=== PATIENT | male | born 1940 | race Caucasian/White ===

== ENCOUNTER 2020-07-07 12:03 | Outpatient (REF) | payer MEDICARE, SELFPAY ==
[2020-07-07 14:27] LABS: Glucose Urine UA NEG (NEG); Leukocyte Esterase Urine 3+ (NEG); Nitrite Urine POS (NEG); Urine Blood 2+ (NEG); Urine Ketones NEG (NEG); Urine Protein TRACE MG/DL (NEG-TRACE)
[2020-07-07 14:34] LABS: Appearance Urine CLOUDY; Color Urine YELLOW
[2020-07-07 15:01] LABS: WBC Urine TNTC /HPF (0-4)
[2020-07-07 15:02] LABS: Bacteria Urine 2+ /LPF; Mucus Urine TRACE /LPF; Squamous Epithelial Cell Urine TRACE /LPF
== END 2020-07-07 12:04 | disposition home or self-care (01) ==
LOC: HO.HSH3E 12:03
PROVIDERS: Visit Provider Internal Medicine Medical Oncology
DX: N39.0 Urinary tract infection, site not specified (principal)
CPT/HCPCS: 81001; 87086; 87088; 87186

== ENCOUNTER 2020-07-08 06:46 | Outpatient (REF) | payer MEDICARE, SELFPAY ==
[2020-07-08 11:20] LABS: MANUAL DIFF FLAG NO
[2020-07-08 11:23] LABS: Basophils Percent Auto 0.3 % (0-2); Eosinophils Absolute Auto 0.3 X10*3/uL (0.0-0.4); Eosinophils Percent Auto 3.7 % (0-4); Hematocrit 28.8 % (42-52); Hemoglobin 9.1 g/dl (14.0-18.0); Imm Gran Abs Auto 0.03 X10*3/uL (0.00-0.03); Imm Gran Pct Auto 0.4 % (0.0-0.4); Lymphocytes Absolute Auto 1.6 X10*3/uL (1.2-4.9); Lymphocytes Percent Auto 22.1 % (20-40); Mean Corpuscular HGB Conc 31.6 g/dl (31.0-36.0); Mean Corpuscular Hemoglobin 31.5 pg (27.0-33.0); Mean Corpuscular Volume 99.7 fL (80-98); Mean Platelet Volume 9.5 fL (9.4-12.4); Monocytes Absolute Auto 0.8 X10*3/uL (0.1-1.2); Monocytes Percent Auto 11.6 % (2-11); Neutrophils Absolute Auto 4.4 X10*3/uL (2.0-8.3); Neutrophils Percent Auto 61.9 % (45-73); Platelet Count 238 X10*3/uL (160-400); Red Blood Count 2.89 X10*6/uL (4.60-5.80); Red Cell Distribution Width 13.7 % (11.0-16.0); White Blood Count 7.1 X10*3/uL (4.8-10.8)
== END 2020-07-08 06:47 | disposition home or self-care (01) ==
LOC: HO.HSH3E 06:46
PROVIDERS: Visit Provider Internal Medicine
DX: R50.9 Fever, unspecified (principal)
CPT/HCPCS: 36415; 85025

== ENCOUNTER 2020-07-09 16:57 | Outpatient (REF) | payer MEDICARE, SELFPAY | END 2020-07-09 16:58 | disposition home or self-care (01) | LOC: HO.HSH3E 16:57 | PROVIDERS: Visit Provider Internal Medicine Medical Oncology | DX: R50.9 Fever, unspecified (principal) | CPT/HCPCS: 87086; 87088; 87186 ==

== ENCOUNTER 2020-08-18 12:59 | Outpatient (REF) | payer MEDICARE, SELFPAY ==
[2020-08-18 13:40] LABS: MANUAL DIFF FLAG NO
[2020-08-18 13:44] LABS: Basophils Percent Auto 0.6 % (0-2); Eosinophils Absolute Auto 0.3 X10*3/uL (0.0-0.4); Eosinophils Percent Auto 3.8 % (0-4); Hematocrit 32.7 % (42-52); Hemoglobin 10.3 g/dl (14.0-18.0); Imm Gran Abs Auto 0.03 X10*3/uL (0.00-0.03); Imm Gran Pct Auto 0.4 % (0.0-0.4); Lymphocytes Absolute Auto 1.1 X10*3/uL (1.2-4.9); Mean Corpuscular HGB Conc 31.5 g/dl (31.0-36.0); Mean Corpuscular Hemoglobin 30.9 pg (27.0-33.0); Mean Corpuscular Volume 98.2 fL (80-98); Mean Platelet Volume 9.2 fL (9.4-12.4); Monocytes Absolute Auto 0.8 X10*3/uL (0.1-1.2); Monocytes Percent Auto 11.1 % (2-11); Neutrophils Absolute Auto 4.6 X10*3/uL (2.0-8.3); Neutrophils Percent Auto 68.1 % (45-73); Platelet Count 278 X10*3/uL (160-400); Red Blood Count 3.33 X10*6/uL (4.60-5.80); Red Cell Distribution Width 14.1 % (11.0-16.0); White Blood Count 6.8 X10*3/uL (4.8-10.8)
[2020-08-18 14:06] LABS: Alanine Aminotransferase 15 U/L (0-40); Albumin Level 3.6 g/dL (3.5-5.0); Alkaline Phosphatase 73 U/L (39-117); Anion Gap 12 (12-20); Aspartate Amino Transferase 17 U/L (5-37); Bilirubin Total 0.3 mg/dL (0.0-1.0); Blood Urea Nitrogen 34 mg/dL (9-16); Calcium 9.1 mg/dL (8.4-10.2); Carbon Dioxide 32 mmol/L (22-29); Chloride 98 mmol/L (96-108); Estimated Glomerular Filt Rate 44; Glucose Random 112 mg/dL (60-115); Potassium 3.6 mmol/l (3.3-5.1); Sodium 138 mmol/L (135-145)
== END 2020-08-18 13:00 | disposition home or self-care (01) ==
LOC: HO.HSH3E 12:59
PROVIDERS: Visit Provider Internal Medicine Medical Oncology
DX: R10.9 Unspecified abdominal pain (principal)
CPT/HCPCS: 36415; 80053; 85025

== ENCOUNTER 2020-09-23 08:24 | Outpatient (REF) | payer MEDICARE, SELFPAY ==
[2020-09-23 12:41] LABS: CDIFF Ag Positive (Negative); CDiff Toxin Negative (Negative)
[2020-09-23 12:42] LABS: CDIFF Internal ctrl Dots and bkg OK (V)
[2020-09-23 14:15] LABS: CDiff Gene PCR POSITIVE (Negative)
== END 2020-09-23 08:25 | disposition home or self-care (01) ==
LOC: HO.HSH3E 08:24
PROVIDERS: Visit Provider Internal Medicine Medical Oncology
DX: R19.7 Diarrhea, unspecified (principal)
CPT/HCPCS: 87324; 87449; 87493

== ENCOUNTER 2020-10-06 09:58 | Outpatient (REF) | payer MEDICARE, SELFPAY | END 2020-10-06 09:59 | disposition home or self-care (01) | LOC: HO.HSH3E 09:58 | PROVIDERS: Visit Provider Internal Medicine Medical Oncology | DX: S41.001A Unspecified open wound of right shoulder, initial encounter (principal) | CPT/HCPCS: 88305; 88312 ==

== ENCOUNTER 2020-11-30 15:20 | Outpatient (REF) | payer MEDICARE, SELFPAY ==
[2020-11-30 15:27] LABS: Glucose Urine UA NEG (NEG); Leukocyte Esterase Urine 3+ (NEG); Nitrite Urine NEG (NEG); Urine Blood 2+ (NEG); Urine Ketones NEG (NEG); Urine Protein 1+ MG/DL (NEG-TRACE)
[2020-11-30 15:32] LABS: Appearance Urine CLOUDY; Color Urine YELLOW
[2020-11-30 15:35] LABS: Bacteria Urine 4+ /LPF; Mucus Urine 1+ /LPF; Squamous Epithelial Cell Urine 1+ /LPF
== END 2020-11-30 15:21 | disposition home or self-care (01) ==
LOC: HO.LNP 15:20
PROVIDERS: Visit Provider Internal Medicine Medical Oncology
DX: R52 Pain, unspecified (principal); L08.9 Local infection of the skin and subcutaneous tissue, unspecified
CPT/HCPCS: 81001; 87071; 87205

== ENCOUNTER 2020-12-12 15:52 | Outpatient (REF) | payer MEDICARE, SELFPAY | END 2020-12-12 15:53 | disposition home or self-care (01) | LOC: HO.LNP 15:52 | PROVIDERS: Visit Provider Internal Medicine Medical Oncology | DX: R52 Pain, unspecified (principal); R60.9 Edema, unspecified | CPT/HCPCS: 87071; 87205 ==

== ENCOUNTER 2020-12-16 09:34 | Outpatient (REF) | payer MEDICARE, SELFPAY ==
[2020-12-16 10:21] LABS: MANUAL DIFF FLAG NO
[2020-12-16 10:27] LABS: Basophils Percent Auto 0.2 % (0-2); Eosinophils Absolute Auto 0.1 X10*3/uL (0.0-0.4); Eosinophils Percent Auto 1.1 % (0-4); Hematocrit 26.3 % (42-52); Hemoglobin 8.2 g/dl (14.0-18.0); Imm Gran Abs Auto 0.05 X10*3/uL (0.00-0.03); Imm Gran Pct Auto 0.5 % (0.0-0.4); Lymphocytes Percent Auto 10.2 % (20-40); Mean Corpuscular HGB Conc 31.2 g/dl (31.0-36.0); Mean Corpuscular Hemoglobin 28.9 pg (27.0-33.0); Mean Corpuscular Volume 92.6 fL (80-98); Monocytes Percent Auto 10.1 % (2-11); Neutrophils Absolute Auto 7.3 X10*3/uL (2.0-8.3); Neutrophils Percent Auto 77.9 % (45-73); Platelet Count 293 X10*3/uL (160-400); Red Blood Count 2.84 X10*6/uL (4.60-5.80); Red Cell Distribution Width 15.9 % (11.0-16.0); White Blood Count 9.4 X10*3/uL (4.8-10.8)
[2020-12-16 10:49] LABS: Lactic Acid 1.1 mmol/L (0.5-2.0)
[2020-12-16 11:07] LABS: Erythrocyte Sedimentation Rate 116 MM/HR (0-15)
[2020-12-16 11:22] LABS: Estimated Average Glucose 128 mg/dL; Hemoglobin A1C 98.2724 umol/L; Hemoglobin A1c % 6.1 %
[2020-12-16 11:23] LABS: Alanine Aminotransferase 10 U/L (0-40); Alkaline Phosphatase 57 U/L (39-117); Anion Gap 10 (12-20); Aspartate Amino Transferase 16 U/L (5-37); Bilirubin Total 0.5 mg/dL (0.0-1.0); Blood Urea Nitrogen 22 mg/dL (9-16); Calcium 8.1 mg/dL (8.4-10.2); Carbon Dioxide 33 mmol/L (22-29); Chloride 96 mmol/L (96-108); Cholesterol 106 mg/dL; Estimated Glomerular Filt Rate 51; Glucose Random 134 mg/dL (60-115); HDL Cholesterol 36 mg/dL; LDL Cholesterol Calculated 59 mg/dl; Potassium 3.6 mmol/L (3.3-5.1); Sodium 135 mmol/L (135-145); Total Protein 6.3 g/dL (6.5-8.0); Triglycerides 57 mg/dL
== END 2020-12-16 09:35 | disposition home or self-care (01) ==
LOC: HO.HSH3E 09:34
PROVIDERS: Visit Provider Internal Medicine Medical Oncology
DX: Z13.89 Encounter for screening for other disorder (principal)
CPT/HCPCS: 36415; 80053; 80061; 83036; 83605; 85025; 85652; 87040

== ENCOUNTER 2020-12-17 10:27 | Inpatient (IN) | payer MEDICARE, SELFPAY ==
[2020-12-17] VITALS (7 sets, daily range): BP systolic 96–134; BP diastolic 47–58; PULSE 64–84; RESP 13–19; TEMP 36.4–37; O2SAT 92–99; BMI 30.9
--- NOTE | ~2020-12-17 | CT_ITS ---
EXAMINATION: CT ABDOMEN AND PELVIS WITH CONTRAST CLINICAL INFORMATION: Scrotal swelling and pain. Evaluate for gangrene or abscess. COMPARISON: None TECHNIQUE: Multidetector volumetric images were obtained from the superior aspect of the liver through the pubic symphysis following administration 85 mL of Omnipaque 350 intravenous contrast. Sagittal and coronal reformatted images were obtained on the technologist's workstation. Oral contrast: Yes This CT examination was performed using dose optimization techniques as appropriate, variously including the following: *Automated exposure control *Adjustment of mA and/or kV according to patient size (this includes techniques or standardized protocols for targeted exams where dose is matched to indication/reason for exam; i.e. extremities or head) *Use of iterative reconstruction technique DLP: 1632 mGy-cm FINDINGS: LUNG BASES: There are increased peripheral interstitial markings suggestive of interstitial lung disease. This is similar to previous chest CT December 2019 LIVER, GALLBLADDER, AND BILIARY TREE: The liver is normal in size, shape, and attenuation. No focal hepatic lesion or biliary ductal dilatation is present. There are gallstones in the gallbladder. Gallbladder is otherwise unremarkable.. PANCREAS: Unremarkable. SPLEEN: Unremarkable. ADRENAL GLANDS: Unremarkable. KIDNEYS AND URETERS: There are a left renal stones. There is a staghorn stone seen in the left renal pelvis measuring 1.8 x 2 cm. There are small left lower pole calyces, largest measuring 5 x 10 mm. There is a 1.5 cm cyst in the lower pole of the left kidney. BLADDER: Unremarkable. There is a Jacobs catheter in the penis/penile urethra. GASTROINTESTINAL TRACT: There is stool throughout the colon suggestive of constipation. Colon is dilated. The sigmoid colon measures up to 12 cm in diameter suggestive of obstipation. Small bowel is normal. The appendix is normal. The stomach is normal. ABDOMINAL WALL: There is a small inguinal hernia containing fat. LYMPH NODES: There are small bilateral pelvic and inguinal lymph nodes. No enlarged lymph nodes are seen. VASCULAR: Unremarkable. PELVIC VISCERA: There is diffuse soft tissue swelling, skin thickening and stranding of the subcutaneous fat in the perineal region surrounding the scrotum and the penis. There is a fluid collection with enhancing wall seen in the dorsal left penis measuring 3 x 5 x 6.5 cm in AP transverse and longitudinal dimension questionable for an abscess. No abnormal air in the soft tissues is seen. The prostate gland does not appear enlarged. OSSEOUS STRUCTURES: There are degenerative changes of the spine. CT/CT abdomen pelvis w con IMPRESSION: There is a Jacobs catheter in penis/penile urethra. There is diffuse soft tissue swelling, skin thickening and stranding of the subcutaneous fat in the perineal region surrounding the scrotum and the penis. There is a fluid collection with enhancing wall seen in the dorsal left side of the penis measuring 3 x 5 x 6.5 cm in AP transverse and longitudinal dimension questionable for an abscess. No abnormal air in the soft tissues to suggest gangrene is seen. Left renal stones, largest a 1.8 x 2 cm staghorn stone in the left renal pelvis. Severe constipation/obstipation. Gallstones. Increased interstitial markings at the lung bases suggestive of interstitial lung disease.
--- NOTE | ~2020-12-17 | XR_ITS ---
EXAMINATION: XR CHEST CLINICAL INFORMATION: Sepsis. COMPARISON: None TECHNIQUE: Frontal view of the chest was obtained. FINDINGS: Lungs are hypoexpanded with mild bilateral prominent interstitium but no consolidation seen. The heart size and pulmonary vascularity is normal. No gross bony abnormality. XR/XR chest 1V IMPRESSION: Bilateral prominent interstitium likely chronic changes. No acute consolidation seen.
--- NOTE | 2020-12-17 10:45 | ECG_ITS ---
Test Reason : INFECTION Blood Pressure : / mmHG Vent. Rate : 077 BPM Atrial Rate : 077 BPM P-R Int : 260 ms QRS Dur : 160 ms QT Int : 442 ms P-R-T Axes : 011 004 013 degrees QTc Int : 500 ms Sinus rhythm with 1st degree A-V block with Premature supraventricular complexes Left bundle branch block Abnormal ECG When compared with ECG of 02-JAN-2020 23:43, Premature ventricular complexes are no longer Present Premature supraventricular complexes are now Present Referred By: Shaun Douglas Electronically Signed By:CHUCKIE SANTOS MD
--- NOTE | 2020-12-17 10:49 | ED.GENADULT ---
HPI - General Adult General Chief complaint: General Medical Stated complaint: PAIN IN SCROTUM Time Seen by Provider: 12/17/20 10:42 Source: patient and other ( patient's PCP, Dr. Brown) Mode of arrival: EMS Limitations: other ( patient has memory deficits) History of Present Illness HPI narrative: 80-year-old male who was sent to the emergency department by his PCP, Dr. 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 I obtained this information from Dr. Brown. He stated that the patient has a history of having a chronic indwelling Jacobs catheter and has grown multi resistant organisms (Proteus and E coli ) in the past. On November 30, 2020, the patient's scrotum and penis became erythematous and swollen. The patient was treated with Cipro with improvement. The swelling and erythema return and Dr. Brown obtained a scrotal Doppler ultrasound which revealed thickening of the scrotal skin but no evidence of testicular torsion, epididymitis, abscess and the testicles were normal in appearance. Dr. Brown obtained an outpatient ID consult and the patient was treated with clindamycin orally and ceftriaxone IM x2 days with no improvement of his symptoms. The patient's erythema has spread to the suprapubic area and the patient now has an area of skin necrosis on his scrotum , therefore the patient was sent to the emergency department for further evaluation. Related Data Allergies Allergy/AdvReac Type Severity Reaction Status Date / Time Morphine AdvReac Intermediate vomiting Uncoded 12/17/20 10:43 Review of Systems Review of Systems: Yes Unobtainable due to mental status ( patient has memory deficits) [facility] Social History Social History Alcohol intake: never Smoking Status: Unknown if ever smoked Smoked in Last 30 Days: No Use of substances other than those prescribed or required for medical reasons: No Advance Directives: Yes Advance Directives on File: Yes Advance Directives Date on File: 12/17/20 Physical Exam Vital Signs: Vital Signs: Last Vital Signs Temp 98.0 F 12/17/20 10:39 Pulse 79 12/17/20 10:39 Resp 16 12/17/20 10:39 BP 134/51 L 12/17/20 10:39 Pulse Ox 96 12/17/20 10:39 Body Mass Index 30.9 Const: General: cooperative Orientation/consciousness: oriented to person Limitations: other limitations ( memory deficits) HENMT: Head: Yes normal to inspection, Yes normocephalic and Yes atraumatic Ears: external ears normal General nose exam: Normal external nose present Face and sinus: Yes normal facial exam Mouth: Normal oral and palatal mucosa present Throat: Yes posterior oropharynx normal Eyes: Periorbital: periorbital findings normal Eyelids: Yes eyelids normal Conjunctivae: conjunctivae normal Sclerae: sclerae normal Corneas: corneas normal Pupils: Equal, round and reactive pupils present Direct Ophthalmoscopy: normal light reflex Neck: Neck: Yes full ROM, Yes no lymphadenopathy, Yes no meningeal signs, Yes trachea midline and Yes supple Chest: Chest palpation & inspection: normal inspection of the chest and normal palpation of entire chest wall Resp: Effort & Inspection: normal respiratory effort and able to speak in complete sentences Auscultation: clear to auscultation bilaterally Cardio: Rate: regular rate Rhythm: regular rhythm Heart sounds: S1 normal heart sound present, S2 normal heart sound present and no murmurs GI: Inspection: Yes normal to inspection Palpation (GI): Soft to palpation, nontender, no guarding, not rigid and No hepatosplenomegaly present : Other: the patient's penis and scrotum are swollen, testicles are hard and tender, there is erythema over the penis and scrotum extending slightly up to the suprapubic area, erythema is warm to the touch General: Yes no CVA tenderness Back/Spine/Pelvis: Back: no CVA tenderness Cervical Spine: normal cervical lordosis Thoracic/Lumbar Spine: thoracic and lumbar spine normal to inspection Skin: Lesions: no lesions Rashes: no rashes Wounds: no wounds Neuro: General: oriented to person and no meningeal signs Cranial nerves: Yes Equal, round and reactive pupils present Cognition (Neuro): normal cognition Motor exam (neuro): 5/5 motor strength present throughout Extrem: General: Yes normal to inspection and Yes full ROM Psych: Appearance: well kempt Mental Status: mental status grossly normal Speech and movement: Normal speech and movement present Affect: normal affect Attitude: cooperative Thought process: Normal thought process present Thought content: Normal thought content present Course Course Course Narrative: 80-year-old male who presents emergency department for evaluation of erythema, swelling of the penis and scrotum, and failure improvement on outpatient regimen of ceftriaxone IM and clindamycin. Patient's physical examination is concerning for cellulitis of the scrotum and penis with possible involvement of the testicles. Medina's gangrene needs to be considered. I did order a septic workup on this patient. The patient will have a CT scan of the abdomen pelvis to include the testicles to look for abscess and gangrene. I ordered Zosyn 4.5 g IV and vancomycin 2 g IV, normal saline x1 L and oxycodone 10 mg orally for his pain. 1409: The patient's laboratory evaluation revealed anemia with an H&H of 9 and 29 Which appears to be chronic . The patient has an elevated creatinine of 1.3 which is consistent with his chronic kidney disease. the patient has an elevated INR of 2.0. Lactic acid was normal 1.3. Urinalysis is from the chronic indwelling Jacobs and was positive for rbc's, leukocyte esterase. The patient had 75-150 white blood cells and 4+ bacteria on the microscopic evaluation Of the urine. The CT scan of the abdomen pelvis with IV contrast did not reveal any evidence for gangrene but the patient does have a penile abscess. I did discuss this with the covering urologist, Dr. Bradshaw. he recommended the patient be admitted for IV antibiotics and that he will plan on incising the abscess in the OR. 1602: I did discuss the patient's presentation with the covering hospitalist, Dr. Platt and he did evaluate the patient here in the emergency department and the patient will be admitted to the hospitalist service. Dr. Bradshaw would like to incise the abscess tomorrow possible. The patient is on apixaban and I will discuss reversing this agent with the pharmacist. 16 15: I discussed reversal of apixaban with the pharmacist. She states that based on patient's MAR, the patient last received apixaban at 10:00 a.m. this morning. She states that based on the patient's creatinine clearance, the patient's risk for bleeding will be normalized at 10:00 a.m. tomorrow morning, therefore she recommends that the surgery take place after 10:00 a.m. She states that Kcentra is minimally effective against reversing apixaban and is used and life-threatening bleed such as cerebral bleeds. I did relay this information to the hospitalist. Medical Decision Making Lab Data Result diagrams: 12/17/20 11:00 12/17/20 11:00 Labs: Lab Results 12/17/20 12/17/20 12/17/20 Range/Units 11:00 11:00 11:00 WBC 11.8 H (4.8-10.8) X10*3/uL RBC 3.11 L (4.60-5.80) X10*6/uL Hgb 9.0 L (14.0-18.0) g/dl Hct 29.1 L (42-52) % MCV 93.6 (80-98) fL MCH 28.9 (27.0-33.0) pg MCHC 30.9 L (31.0-36.0) g/dl RDW 16.0 (11.0-16.0) % Plt Count 308 (160-400) X10*3/uL MPV 8.8 L (9.4-12.4) fL Immature Gran % (Auto) 0.6 H (0.0-0.4) % Neut % (Auto) 79.4 H (45-73) % Lymph % (Auto) 10.1 L (20-40) % [place] % (Auto) 9.1 (2-11) % Eos % (Auto) 0.5 (0-4) % Baso % (Auto) 0.3 (0-2) % Lymph # (Auto) 1.2 (1.2-4.9) X10*3/uL [place] # (Auto) 1.1 (0.1-1.2) X10*3/uL Eos # (Auto) 0.1 (0.0-0.4) X10*3/uL Baso # (Auto) 0.0 (0.0-0.2) X10*3/uL Abs Immat Gran (auto) 0.07 H (0.00-0.03) X10*3/uL Absolute Neuts (auto) 9.4 H (2.0-8.3) X10*3/uL Absolute Nucleated RBC 0.000 (0.0-0.012) X10*3/uL Nucleated RBC % (auto) 0.0 (0.0-0.2) /100WBC PT (10.8-13.0) SEC INR (0.9-1.1) APTT (24.1-38.0) SEC Sodium 133 L (135-145) mmol/L Potassium 3.6 (3.3-5.1) mmol/L Chloride 94 L (96-108) mmol/L Carbon Dioxide 33 H (22-29) mmol/L Anion Gap 10 L (12-20) BUN 21 H (9-16) mg/dL Creatinine 1.39 (0.5-1.4) mg/dL Estim Creat Clear Calc 58.4 Estimated GFR 49 Random Glucose 132 H (60-115) mg/dL Lactic Acid 1.3 (0.5-2.0) mmol/L Calcium 8.4 (8.4-10.2) mg/dL Total Bilirubin 0.5 (0.0-1.0) mg/dL AST 18 (5-37) U/L ALT 13 (0-40) U/L Alkaline Phosphatase 62 (39-117) U/L C-Reactive Protein 14.29 H (< or = 0.50) mg/dL Total Protein 6.8 (6.5-8.0) g/dL Albumin 3.1 L (3.5-5.0) g/dL Lipase < 4 L (8-78) U/L Urine Color Urine Appearance Urine pH (5.0-8.0) Ur Specific [place] (1.005-1.025) Urine Protein (NEG-TRACE) MG/DL Urine Glucose (UA) (NEG) MG/DL Urine Ketones (NEG) MG/DL Urine Blood (NEG) Urine Nitrite (NEG) Ur Leukocyte Esterase (NEG) Urine RBC (0) /HPF Urine WBC (0-4) /HPF Urine WBC Clumps Ur Squamous Epith Cells /LPF Amorphous Sediment /LPF Urine Bacteria /LPF COVID-19 (RU) (Negative) COVID-19 Clin Com 12/17/20 12/17/20 12/17/20 Range/Units 11:00 11:37 13:32 WBC (4.8-10.8) X10*3/uL RBC (4.60-5.80) X10*6/uL Hgb (14.0-18.0) g/dl Hct (42-52) % MCV (80-98) fL MCH (27.0-33.0) pg MCHC (31.0-36.0) g/dl RDW (11.0-16.0) % Plt Count (160-400) X10*3/uL MPV (9.4-12.4) fL Immature Gran % (Auto) (0.0-0.4) % Neut % (Auto) (45-73) % Lymph % (Auto) (20-40) % [place] % (Auto) (2-11) % Eos % (Auto) (0-4) % Baso % (Auto) (0-2) % Lymph # (Auto) (1.2-4.9) X10*3/uL [place] # (Auto) (0.1-1.2) X10*3/uL Eos # (Auto) (0.0-0.4) X10*3/uL Baso # (Auto) (0.0-0.2) X10*3/uL Abs Immat Gran (auto) (0.00-0.03) X10*3/uL Absolute Neuts (auto) (2.0-8.3) X10*3/uL Absolute Nucleated RBC (0.0-0.012) X10*3/uL Nucleated RBC % (auto) (0.0-0.2) /100WBC PT 24.4 H (10.8-13.0) SEC INR 2.0 H (0.9-1.1) APTT 37.4 (24.1-38.0) SEC Sodium (135-145) mmol/L Potassium (3.3-5.1) mmol/L Chloride (96-108) mmol/L Carbon Dioxide (22-29) mmol/L Anion Gap (12-20) BUN (9-16) mg/dL Creatinine (0.5-1.4) mg/dL Estim Creat Clear Calc Estimated GFR Random Glucose (60-115) mg/dL Lactic Acid (0.5-2.0) mmol/L Calcium (8.4-10.2) mg/dL Total Bilirubin (0.0-1.0) mg/dL AST (5-37) U/L ALT (0-40) U/L Alkaline Phosphatase (39-117) U/L C-Reactive Protein (< or = 0.50) mg/dL Total Protein (6.5-8.0) g/dL Albumin (3.5-5.0) g/dL Lipase (8-78) U/L Urine Color YELLOW Urine Appearance HAZY Urine pH 6.0 (5.0-8.0) Ur Specific [place] 1.010 (1.005-1.025) Urine Protein TRACE (NEG-TRACE) MG/DL Urine Glucose (UA) NEG (NEG) MG/DL Urine Ketones NEG (NEG) MG/DL Urine Blood 2+ H (NEG) Urine Nitrite POS H (NEG) Ur Leukocyte Esterase 2+ H (NEG) Urine RBC 0 (0) /HPF Urine WBC TNTC H (0-4) /HPF Urine WBC Clumps NOTED Ur Squamous Epith Cells TRACE /LPF Amorphous Sediment TRACE /LPF Urine Bacteria 2+ /LPF COVID-19 (RU) Negative (Negative) COVID-19 Clin Com See Note Imaging Data CT abdomen pelvis with IV contrast: Radiologist's impression: IMPRESSION: There is a Jacobs catheter in penis/penile urethra. There is diffuse soft tissue swelling, skin thickening and stranding of the subcutaneous fat in the perineal region surrounding the scrotum and the penis. There is a fluid collection with enhancing wall seen in the dorsal left side of the penis measuring 3 x 5 x 6.5 cm in AP transverse and longitudinal dimension questionable for an abscess. No abnormal air in the soft tissues to suggest gangrene is seen. Left renal stones, largest a 1.8 x 2 cm staghorn stone in the left renal pelvis. Severe constipation/obstipation. Gallstones. Increased interstitial markings at the lung bases suggestive of interstitial lung disease. Dictated By:SUSIE MENEZES MD Discharge Plan Discharge Clinical Impression: Abscess of penis, Cellulitis of scrotum Patient Disposition: Admitted As Inpatient
[2020-12-17 11:06] LABS: MANUAL DIFF FLAG NO
[2020-12-17 11:07] LABS: Basophils Percent Auto 0.3 % (0-2); Eosinophils Absolute Auto 0.1 X10*3/uL (0.0-0.4); Eosinophils Percent Auto 0.5 % (0-4); Hematocrit 29.1 % (42-52); Imm Gran Abs Auto 0.07 X10*3/uL (0.00-0.03); Imm Gran Pct Auto 0.6 % (0.0-0.4); Lymphocytes Absolute Auto 1.2 X10*3/uL (1.2-4.9); Lymphocytes Percent Auto 10.1 % (20-40); Mean Corpuscular HGB Conc 30.9 g/dl (31.0-36.0); Mean Corpuscular Hemoglobin 28.9 pg (27.0-33.0); Mean Corpuscular Volume 93.6 fL (80-98); Mean Platelet Volume 8.8 fL (9.4-12.4); Monocytes Absolute Auto 1.1 X10*3/uL (0.1-1.2); Monocytes Percent Auto 9.1 % (2-11); Neutrophils Absolute Auto 9.4 X10*3/uL (2.0-8.3); Neutrophils Percent Auto 79.4 % (45-73); Platelet Count 308 X10*3/uL (160-400); Red Blood Count 3.11 X10*6/uL (4.60-5.80); White Blood Count 11.8 X10*3/uL (4.8-10.8)
[2020-12-17 11:25] LABS: Lactic Acid 1.3 mmol/L (0.5-2.0)
[2020-12-17 11:31] LABS: COVID-19 Test Negative (Negative); IDNOW Serial# 9DD0AD1C
[2020-12-17 11:32] LABS: Alanine Aminotransferase 13 U/L (0-40); Albumin Level 3.1 g/dL (3.5-5.0); Alkaline Phosphatase 62 U/L (39-117); Anion Gap 10 (12-20); Aspartate Amino Transferase 18 U/L (5-37); Bilirubin Total 0.5 mg/dL (0.0-1.0); Blood Urea Nitrogen 21 mg/dL (9-16); Calcium 8.4 mg/dL (8.4-10.2); Carbon Dioxide 33 mmol/L (22-29); Chloride 94 mmol/L (96-108); Creatinine Clr Calc Pharmacy 58.4; Estimated Glomerular Filt Rate 49; Glucose Random 132 mg/dL (60-115); Lipase < 4 U/L (8-78); Potassium 3.6 mmol/L (3.3-5.1); Sodium 133 mmol/L (135-145); Total Protein 6.8 g/dL (6.5-8.0)
[2020-12-17] MEDS: oxyCODONE HCl Immed Release 5 MG TABLET 10 MG PO ×2 (11:39→18:57)
[2020-12-17] MEDS: Piperacillin Sodium/Tazobactam 4.5 GM in 0.9 % Sodium Chloride 100 ML IV ×3 (11:39→21:55)
[2020-12-17] MEDS: 0.9 % Sodium Chloride 1,000 ML 999 ML IV (11:42)
[2020-12-17 11:50] LABS: Prothrombin Time 24.4 SEC (10.8-13.0)
[2020-12-17 11:53] LABS: Partial Thromboplastin Time 37.4 SEC (24.1-38.0)
[2020-12-17 13:50] LABS: Glucose Urine UA NEG (NEG); Leukocyte Esterase Urine 2+ (NEG); Nitrite Urine POS (NEG); UACC Culture Trigger YES; Urine Blood 2+ (NEG); Urine Ketones NEG (NEG); Urine Protein TRACE MG/DL (NEG-TRACE)
[2020-12-17 13:51] LABS: Color Urine YELLOW
[2020-12-17 13:52] LABS: Appearance Urine HAZY
[2020-12-17 13:59] LABS: RBC Urine 0 /HPF (0); WBC Urine TNTC /HPF (0-4)
[2020-12-17 14:00] LABS: Amorphous Sediment Urine TRACE /LPF; Bacteria Urine 2+ /LPF; Squamous Epithelial Cell Urine TRACE /LPF; WBC Clumps Urine NOTED
[2020-12-17 15:57] LABS: C Reactive Protein 14.29 mg/dL (< or = 0.50)
--- NOTE | 2020-12-17 17:37 | P.HPHOSP_ITS ---
History of Present Illness Date of Service: 12/17/20 Chief Complaint: worsening infection of penis/scrotum 80 year-old male resident of [place] who has a chronic Jacobs catheter and has history of multiple UTIs developed redness and swelling of his penis and scrotum on 11/30/20. He was treated with ciprofloxacin with partial improvement, but when the redness and swelling recurred, his primary care d ramon, Shon Brown, ordered a testicular Doppler US which showed thickened scrotal skin without torsion, epididymitis, or abscess. ID was consulted on an outpatient basis and the patient was treated with oral clindamycin and IM ceftriaxone without any clinical improvement. Due to worsening erythema and pain, Dr Brown sent the patient to the ED. Throughout this, the patient has not had fever, chills, nausea, vomiting, or abdominal pain. He does have a history of DM2 but A1c was only 6.1 on 12/16/20. No trauma to the penis that he knows of. He presented to the ED without septic features. CT demonstrated a likely penile abscess along with soft tissue infection of the perineal region and the scrotum without any gas. Urology was consulted and plans operative intervention tomorrow. The patient is on apixaban for atrial fibrillation and last dose was at 10:00 today. Hospital Medicine was called to admit the patient. No chest pain or dyspnea. No history of OH or CVA. Review of Systems Review of Systems: Yes all other systems are reviewed and are negative [facility] Medical History (Updated 12/17/20 @ 17:57 by Jeffrey Platt MD) Atrial fibrillation Benign prostate hyperplasia CHF (congestive heart failure) CKD (chronic kidney disease) stage 3, GFR 30-59 ml/min Hypertension Type 2 diabetes mellitus Family History (Updated 12/17/20 @ 17:59 by Jeffrey Platt MD) Other No family history of cardiovascular disease Surgical History (Updated 12/17/20 @ 17:58 by Jeffrey Platt MD) H/O spinal fusion History of ligation of vein Social History Alcohol intake: never Smoking Status: Unknown if ever smoked Smoked in Last 30 Days: No Use of substances other than those prescribed or required for medical reasons: No Advance Directives: Yes Advance Directives on File: Yes Advance Directives Date on File: 12/17/20 Meds Allergies Allergy/AdvReac Type Severity Reaction Status Date / Time Morphine AdvReac Intermediate vomiting Uncoded 12/17/20 10:43 Active Medications: Current Medications Generic Name Dose Route Start Last Admin Trade Name Freq PRN Reason Stop Dose Admin Acetaminophen 650 mg 12/17/20 17:28 Acetaminophen 325 Mg Tablet PO Q6H PRN Pain, Mild (Pain Scale 1-3) Docusate Sodium 100 mg 12/17/20 17:28 Docusate Sodium 100 Mg Capsule PO DAILY PRN Constipation Piperacillin Sod/Tazobactam 100 mls @ 200 mls/hr 12/17/20 17:28 Sod 4.5 gm/ Sodium Chloride IV Q6H [facility] Insulin Human Lispro 0 unit 12/17/20 17:28 Insulin Lispro 100 Unit/Ml 3 Ml Vial SUBCUT QIDACHS [facility] Protocol Morphine Sulfate 2 mg 12/17/20 17:28 Morphine Sulfate 4 Mg/Ml Cartridge IVPUSH Q4H PRN Pain, Severe (Pain Scale 7-10) Ondansetron HCl 4 mg 12/17/20 17:28 Ondansetron Hcl 4 Mg/2 Ml Vial IVPUSH Q8H PRN Nausea and Vomiting Pharmacy Consult 1 each 12/17/20 10:55 Consult Rx Vancomycin Dosing MISCELLANE DAILY PRN Consult order Pharmacy Consult 1 each 12/17/20 15:13 Consult Rx Perform Med Rec MISCELLANE ONCE PRN Consult order Sodium Chloride 3 ml 12/18/20 00:00 0.9 % Sodium Chloride Flush 3 Ml Syringe [facility] Medications Medication Instructions Recorded Confirmed Last Taken Type acetaminophen 650 mg PO Q4H PRN 12/17/20 12/17/20 12/17/20 History apixaban 5 mg PO BID 12/17/20 12/17/20 12/17/20 History 1 bisacodyl 10 mg UT DAILY PRN 12/17/20 12/17/20 12/05/20 History ceftriaxone 1 g IM DAILY 12/17/20 12/17/20 12/17/20 History cyanocobalamin (vitamin B-12) 1,000 mcg PO DAILY 12/17/20 12/17/20 12/17/20 History escitalopram oxalate 10 mg PO DAILY 12/17/20 12/17/20 12/17/20 History fluticasone propionate 1 spray INTRANASAL DAILY 12/17/20 12/17/20 12/17/20 History furosemide 40 mg PO DAILY 12/17/20 12/17/20 12/17/20 History loperamide 2 mg PO Q3H PRN 12/17/20 12/17/20 12/10/20 History magnesium hydroxide [Milk of 30 ml PO BEDTIME PRN 12/17/20 12/17/20 12/04/20 History Magnesia] multivitamin 1 tab PO DAILY 12/17/20 12/17/20 12/17/20 History oxycodone 10 mg PO BID 12/17/20 12/17/20 12/17/20 History oxycodone 10 mg PO Q6H PRN 12/17/20 12/17/20 Unknown History potassium chloride 20 meq PO DAILY 12/17/20 12/17/20 12/17/20 History sodium phosphates [Fleet Enema] 118 ml UT DAILY PRN 12/17/20 12/17/20 Unknown History Physical Exam Vital Signs and Narrative: Vital Signs: Last Vital Signs Temp 98.0 F 12/17/20 10:39 Pulse 64 12/17/20 16:00 Resp 16 12/17/20 16:00 BP 108/49 L 12/17/20 16:00 Pulse Ox 98 12/17/20 16:00 Body Mass Index 30.9 Gen: in no acute distress, alert and conversant HEENT: sclera anicteric, moist mucus membranes Neck: supple Lungs: clear to auscultation bilaterally Heart: regular rate and rhythm, no murmurs noted Abd: soft, non-tender, non-distended : Jacobs in place. The penis and scrotum are erythematous and induration. No crepitus is present. The erythema extends to the suprapubic area as well as the perineum. No necrosis noted. Ext: no edema. There are chronic venous stasis changes to the lower legs bilaterally. Skin: warm/well-perfused Neuro: alert and oriented x3, no focal findings Psych: appropriate affect Results Labs CBC and Chem 7: 12/17/20 11:00 12/17/20 11:00 Labs: Laboratory Results - last 24 hr 12/17/20 12/17/20 12/17/20 11:00 11:00 11:00 MCV 93.6 MCH 28.9 MCHC 30.9 L RDW 16.0 Plt Count 308 MPV 8.8 L Immature Gran % (Auto) 0.6 H Neut % (Auto) 79.4 H Lymph % (Auto) 10.1 L [place] % (Auto) 9.1 Eos % (Auto) 0.5 Baso % (Auto) 0.3 Lymph # (Auto) 1.2 [place] # (Auto) 1.1 Eos # (Auto) 0.1 Baso # (Auto) 0.0 Abs Immat Gran (auto) 0.07 H Absolute Neuts (auto) 9.4 H Absolute Nucleated RBC 0.000 Nucleated RBC % (auto) 0.0 PT INR APTT Anion Gap 10 L Estim Creat Clear Calc 58.4 Estimated GFR 49 Random Glucose 132 H Lactic Acid 1.3 Calcium 8.4 Total Bilirubin 0.5 AST 18 ALT 13 Alkaline Phosphatase 62 C-Reactive Protein 14.29 H Total Protein 6.8 Albumin 3.1 L Lipase < 4 L Urine Color Urine Appearance Urine pH Ur Specific [place] Urine Protein Urine Glucose (UA) Urine Ketones Urine Blood Urine Nitrite Ur Leukocyte Esterase Urine RBC Urine WBC Urine WBC Clumps Ur Squamous Epith Cells Amorphous Sediment Urine Bacteria COVID-19 (RU) COVID-19 Clin Com 12/17/20 12/17/20 12/17/20 11:00 11:37 13:32 MCV MCH MCHC RDW Plt Count MPV Immature Gran % (Auto) Neut % (Auto) Lymph % (Auto) [place] % (Auto) Eos % (Auto) Baso % (Auto) Lymph # (Auto) [place] # (Auto) Eos # (Auto) Baso # (Auto) Abs Immat Gran (auto) Absolute Neuts (auto) Absolute Nucleated RBC Nucleated RBC % (auto) PT 24.4 H INR 2.0 H APTT 37.4 Anion Gap Estim Creat Clear Calc Estimated GFR Random Glucose Lactic Acid Calcium Total Bilirubin AST ALT Alkaline Phosphatase C-Reactive Protein Total Protein Albumin Lipase Urine Color YELLOW Urine Appearance HAZY Urine pH 6.0 Ur Specific [place] 1.010 Urine Protein TRACE Urine Glucose (UA) NEG Urine Ketones NEG Urine Blood 2+ H Urine Nitrite POS H Ur Leukocyte Esterase 2+ H Urine RBC 0 Urine WBC TNTC H Urine WBC Clumps NOTED Ur Squamous Epith Cells TRACE Amorphous Sediment TRACE Urine Bacteria 2+ COVID-19 (RU) Negative COVID-19 Clin Com See Note Imaging Radiologist's Impressions: Impressions Abdomen/Pelvis CT 12/17/20 10:45 IMPRESSION: There is a Jacobs catheter in penis/penile urethra. There is diffuse soft tissue swelling, skin thickening and stranding of the subcutaneous fat in the perineal region surrounding the scrotum and the penis. There is a fluid collection with enhancing wall seen in the dorsal left side of the penis measuring 3 x 5 x 6.5 cm in AP transverse and longitudinal dimension questionable for an abscess. No abnormal air in the soft tissues to suggest gangrene is seen. Left renal stones, largest a 1.8 x 2 cm staghorn stone in the left renal pelvis. Severe constipation/obstipation. Gallstones. Increased interstitial markings at the lung bases suggestive of interstitial lung disease. Chest X-Ray 12/17/20 10:46 IMPRESSION: Bilateral prominent interstitium likely chronic changes. No acute consolidation seen. Assessment and Plan (1) Abscess of penis: Status: Acute (2) Cellulitis of scrotum: Status: Acute 80 year-old man with well-controlled DM2, AF on apixaban, and CHF presenting with 17 days of worsening scrotal/penile cellulitis without any signs of necrotizing soft tissue infection or Medina's gangrene. He has failed outpatient antibiotics. He is not septic, but requires operative drainage of abscess for definitive treatment of the infection. 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 hold apixaban as above for OR # CHF - not decompensated. continue maintenance furosemide. # DM2 - correction-dose lispro # depression - continue escitalopram # VTE ppx - hold apixaban for surgery; apply SCDs # code status - full, confirmed with family and HCP niece Beena Otero
[2020-12-17 19:10] LABS: Glucose, Whole Blood 106 mg/dL (60-115)
[2020-12-17 20:41] LABS: Glucose, Whole Blood 206 mg/dL (60-115)
[2020-12-18] VITALS (18 sets, daily range): BP systolic 92–122; BP diastolic 45–67; PULSE 70–88; RESP 16–20; TEMP 36.3–37.3; O2SAT 92–99
--- NOTE | 2020-12-18 | ECG_ITS ---
Test Reason : CHEST PAIN Blood Pressure : / mmHG Vent. Rate : 079 BPM Atrial Rate : 079 BPM P-R Int : 272 ms QRS Dur : 158 ms QT Int : 446 ms P-R-T Axes : 000 -13 034 degrees QTc Int : 511 ms Sinus rhythm with 1st degree A-V block Left bundle branch block Abnormal ECG No significant changes when compared with the previous EKG of 17 december 2020 Referred By: Jeffrey Platt Electronically Signed By:BANDAR NESS
[2020-12-18] MEDS: 0.9 % Sodium Chloride Flush 3 ML SYRINGE IVFLUSH ×2 (01:30→07:50)
[2020-12-18 06:22] LABS: MANUAL DIFF FLAG NO
[2020-12-18 06:27] LABS: Basophils Percent Auto 0.2 % (0-2); Eosinophils Absolute Auto 0.1 X10*3/uL (0.0-0.4); Eosinophils Percent Auto 0.7 % (0-4); Hemoglobin 8.2 g/dl (14.0-18.0); Imm Gran Abs Auto 0.07 X10*3/uL (0.00-0.03); Imm Gran Pct Auto 0.5 % (0.0-0.4); Lymphocytes Percent Auto 7.8 % (20-40); Mean Corpuscular HGB Conc 31.5 g/dl (31.0-36.0); Mean Corpuscular Hemoglobin 29.1 pg (27.0-33.0); Mean Corpuscular Volume 92.2 fL (80-98); Monocytes Absolute Auto 1.1 X10*3/uL (0.1-1.2); Monocytes Percent Auto 8.4 % (2-11); Neutrophils Absolute Auto 10.9 X10*3/uL (2.0-8.3); Neutrophils Percent Auto 82.4 % (45-73); Platelet Count 294 X10*3/uL (160-400); Red Blood Count 2.82 X10*6/uL (4.60-5.80); Red Cell Distribution Width 16.2 % (11.0-16.0); White Blood Count 13.2 X10*3/uL (4.8-10.8)
[2020-12-18 06:50] LABS: Anion Gap 13 (12-20); Blood Urea Nitrogen 21 mg/dL (9-16); Calcium 7.9 mg/dL (8.4-10.2); Carbon Dioxide 32 mmol/L (22-29); Chloride 95 mmol/L (96-108); Creatinine Clr Calc Pharmacy 55.2; Estimated Glomerular Filt Rate 46; Glucose Random 100 mg/dL (60-115); Potassium 3.7 mmol/L (3.3-5.1); Sodium 136 mmol/L (135-145)
[2020-12-18] MEDS: Piperacillin Sodium/Tazobactam 4.5 GM in 0.9 % Sodium Chloride 100 ML IV ×2 (07:30→11:21)
[2020-12-18 07:47] LABS: Glucose, Whole Blood 96 mg/dL (60-115)
[2020-12-18] MEDS: Multivitamin TABLET 1 TAB PO (07:49)
[2020-12-18] MEDS: Escitalopram Oxalate 10 MG TABLET PO (07:49)
[2020-12-18] MEDS: Cyanocobalamin (Vitamin B-12) 1,000 MCG TABLET 1000 MCG PO (07:49)
[2020-12-18] MEDS: Lactated Ringers 500 ML 50 ML IVCONT (09:16)
[2020-12-18] MEDS: Potassium Chloride ER 20 MEQ TAB.ER.PRT PO (09:20)
--- NOTE | 2020-12-18 09:23 | MHC.PIE ---
c/o chest pain. skin W@D Denies nausea. VSS Dr Platt notified. EKG ordered.
[2020-12-18] MEDS: Furosemide 40 MG TABLET PO (10:20)
[2020-12-18] MEDS: Fluticasone Propionate Nasal 16 GM SPRAY 1 SPRAY NOSTRIL-B (10:20)
--- NOTE | 2020-12-18 10:35 | MHC.CM.PN ---
DEEP IS FROM [facility]. 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 HCP IS IN PAPER CHART AND VALIDATED, ALTHOUGH PATIENT DOES SPEAK FOR HIMSELF. HE IS AWAITING UROLOGY CONSULT. CASE MANAGEMENT FOLLOWING. IMM 12/18 IN CHART.
[2020-12-18 11:06] LABS: Troponin-I High Sensitivity 4.2 ng/L (<3.5-35.0)
--- NOTE | 2020-12-18 11:19 | P.CONCA_ITS ---
History of Present Illness History of Present Illness Date of Service: 12/18/20 Consult reason: chest pain Chief complaint: Abscess of penis Narrative: We are asked to see Clarence in cardiology consult patient today as he developed epigastric lower retrosternal chest pain this morning. He has a very poor historian. He was brought in from [facility] because he was having no response to outpatient oral antibiotics for his scrotal and penile cellulitis. Subsequently noted to have penile abscess. He is to undergo surgery this morning. He has been kept NPO. He says because he can not drink water he is developing this discomfort in the epigastric region in the lower retrosternal area which she is not able to describe much but says that he is uncomfortable. May be like a dull ache/pressure. No associated shortness of breath, palpitations, lightheadedness, nausea, vomiting. He says if he could just adjust and/or drink some water the symptoms would subside. He has similar symptoms the past but he has been able to take care of them very quickly as he is able to drink water or move around. Patient has prior medical history as mentioned of paroxysmal atrial fibrillation, CHF, hypertension, diabetes. No documented CAD or vascular disease. He has EKG done today and on admission shows left bundle-branch block therefore nondiagnostic. Left bundle-branch block was also present on EKG from December of 2019. Review of Systems Constitutional: Constitutional: Reports other Comments: Difficult to obtain from this patient as he is very focused on his epigastric discomfort and wants to drink water and is very anxious. [facility] Past Medical History Medical History (Updated 12/18/20 @ 11:24 by Jared Evans MD) Atrial fibrillation Benign prostate hyperplasia CHF (congestive heart failure) CKD (chronic kidney disease) stage 3, GFR 30-59 ml/min Hypertension Left bundle branch block Osteoarthritis Spinal stenosis Type 2 diabetes mellitus Urine retention Family History Family History Other No family history of cardiovascular disease Surgical History Surgical History H/O spinal fusion History of ligation of vein Social History Social History Household Members: None Housing: [facility] Do you presently have visiting nurse or other home services: No Unable to assess alcohol history related to: Unknown Alcohol intake: never Smoking Status: Unknown if ever smoked Smoked in Last 30 Days: No Use of substances other than those prescribed or required for medical reasons: Unknown Currently Displaying Signs/Symptoms of Drug Intoxication Withdrawal: No Advance Directives: Yes Advance Directives on File: Yes Advance Directives Date on File: 12/17/20 Do you have thoughts of harming others: None Do you have a plan to hurt others: No Plan Recently lost weight without trying: Unsure service: Yes Current occupational status: retired [employer] Allergies Allergy/AdvReac Type Severity Reaction Status Date / Time Morphine AdvReac Intermediate vomiting Uncoded 12/17/20 10:43 Active Medications: Current Medications Generic Name Dose Route Start Last Admin Trade Name Freq PRN Reason Stop Dose Admin Acetaminophen 650 mg 12/17/20 17:28 Acetaminophen 325 Mg Tablet PO Q6H PRN Pain, Mild (Pain Scale 1-3) Bisacodyl 10 mg 12/17/20 17:35 Bisacodyl 10 Mg Supp.Rect MD DAILY PRN Constipation Cyanocobalamin 1,000 mcg 12/18/20 09:00 12/18/20 07:49 Cyanocobalamin (Vitamin B-12) 1,000 Mcg Tablet PO 1,000 mcg DAILY ROXANN Administration Docusate Sodium 100 mg 12/17/20 17:28 Docusate Sodium 100 Mg Capsule PO DAILY PRN Constipation Escitalopram Oxalate 10 mg 12/18/20 09:00 12/18/20 07:49 Escitalopram Oxalate 10 Mg Tablet PO 10 mg DAILY ROXANN Administration Fluticasone Propionate 1 spray 12/18/20 09:00 12/18/20 10:20 Fluticasone Propionate Nasal 16 Gm [place] NOSTRIL-B 1 spray DAILY ROXANN Administration Furosemide 40 mg 12/18/20 09:00 12/18/20 10:20 Furosemide 40 Mg Tablet PO 40 mg DAILY ROXANN Administration Protocol Piperacillin Sod/Tazobactam 100 mls @ 200 mls/hr 12/17/20 17:28 12/18/20 08:00 Sod 4.5 gm/ Sodium Chloride IV Infused Q6H ROXANN Infusion Vancomycin HCl 1,250 mg/ 250 mls @ 166.667 mls/hr 12/18/20 13:00 Sodium Chloride IV Q24H ROXANN Lactated Ringer's 500 mls @ 50 mls/hr 12/18/20 09:00 12/18/20 09:16 Lr IVCONT 12/18/20 18:59 50 mls/hr .Q10H ROXANN Administration Insulin Human Lispro 0 unit 12/17/20 17:28 12/18/20 08:02 Insulin Lispro 100 Unit/Ml 3 Ml Vial SUBCUT Not Given QIDACHS [facility] Protocol Magnesium Hydroxide 30 ml 12/17/20 17:35 Milk Of Magnesia 30 Ml Oral.Susp PO BEDTIME PRN Constipation Morphine Sulfate 2 mg 12/17/20 17:28 Morphine Sulfate 4 Mg/Ml Cartridge IVPUSH Q4H PRN Pain, Severe (Pain Scale 7-10) Multivitamins/Vitamin C 1 tab 12/18/20 09:00 12/18/20 07:49 Multivitamin Tablet PO 1 tab DAILY ROXANN Administration Ondansetron HCl 4 mg 12/17/20 17:28 Ondansetron Hcl 4 Mg/2 Ml Vial IVPUSH Q8H PRN Nausea and Vomiting Oxycodone HCl 10 mg 12/17/20 17:35 12/17/20 18:57 Oxycodone Hcl Immed Release 5 Mg Tablet PO 10 mg Q6H PRN Administration Pain Pharmacy Consult 1 each 12/17/20 10:55 Consult Rx Vancomycin Dosing MISCELLANE DAILY PRN Consult order Pharmacy Consult 1 each 12/17/20 15:13 Consult Rx Perform Med Rec MISCELLANE ONCE PRN Consult order Potassium Chloride 20 meq 12/18/20 09:00 12/18/20 09:20 Potassium Chloride Er 20 Meq Tab.Er.Prt PO 20 meq DAILY ROXANN Administration Sodium Chloride 3 ml 12/18/20 00:00 12/18/20 07:50 0.9 % Sodium Chloride Flush 3 Ml Syringe IVFLUSH 3 ml QSHIFT ROXANN Administration Home Medications Medication Instructions Recorded Confirmed Last Taken Type acetaminophen 650 mg PO Q4H PRN 12/17/20 12/17/20 12/17/20 History apixaban 5 mg PO BID 12/17/20 12/17/20 12/17/20 History 1 bisacodyl 10 mg MD DAILY PRN 12/17/20 12/17/20 12/05/20 History ceftriaxone 1 g IM DAILY 12/17/20 12/17/20 12/17/20 History cyanocobalamin (vitamin B-12) 1,000 mcg PO DAILY 12/17/20 12/17/20 12/17/20 History escitalopram oxalate 10 mg PO DAILY 12/17/20 12/17/20 12/17/20 History fluticasone propionate 1 spray INTRANASAL DAILY 12/17/20 12/17/20 12/17/20 History furosemide 40 mg PO DAILY 12/17/20 12/17/20 12/17/20 History loperamide 2 mg PO Q3H PRN 12/17/20 12/17/20 12/10/20 History magnesium hydroxide [Milk of 30 ml PO BEDTIME PRN 12/17/20 12/17/20 12/04/20 History Magnesia] multivitamin 1 tab PO DAILY 12/17/20 12/17/20 12/17/20 History oxycodone 10 mg PO BID 12/17/20 12/17/20 12/17/20 History oxycodone 10 mg PO Q6H PRN 12/17/20 12/17/20 Unknown History potassium chloride 20 meq PO DAILY 12/17/20 12/17/20 12/17/20 History sodium phosphates [Fleet Enema] 118 ml MD DAILY PRN 12/17/20 12/17/20 Unknown History Physical Exam Vital Signs: Vital Signs: Last Vital Signs Temp 98.0 F 12/18/20 07:43 Pulse 79 12/18/20 09:24 Resp 16 12/18/20 07:43 BP 122/52 L 12/18/20 09:24 Pulse Ox 92 12/18/20 09:24 Body Mass Index 30.9 Const: General: cooperative, comfortable, no acute distress and anxious Nutritional Appearance: obese Orientation/consciousness: patient oriented x3 HENMT: Head: Yes normocephalic and Yes atraumatic Neck: Neck: Yes trachea midline, Yes supple and Yes no JVD Resp: Effort & Inspection: decreased respiratory effort Auscultation: no rales, no wheezes and diminished lung sounds Cardio: Jugular venous distension: no JVD Palpation: normal PMI Rate: regular rate Rhythm: regular rhythm Heart sounds: S1 normal heart sound present, S2 normal heart sound present and Other heart sounds present Peripheral pulses: other (Epigastric tenderness on pressure) GI: Auscultation: normal bowel sounds Neuro: General: patient oriented x3 and no focal motor deficits Extrem: General: Yes no clubbing, cyanosis or edema Psych: Affect: Anxious affect present Results Labs and Meds Result diagrams: 12/18/20 05:48 12/18/20 05:48 Lab results: Laboratory Results - last 24 hr 12/17/20 12/17/20 12/17/20 11:00 11:00 11:00 WBC RBC Hgb Hct MCV MCH MCHC RDW Plt Count MPV Immature Gran % (Auto) Neut % (Auto) Lymph % (Auto) Menard % (Auto) Eos % (Auto) Baso % (Auto) Lymph # (Auto) Menard # (Auto) Eos # (Auto) Baso # (Auto) Abs Immat Gran (auto) Absolute Neuts (auto) Absolute Nucleated RBC Nucleated RBC % (auto) PT INR APTT Sodium 133 L Potassium 3.6 Chloride 94 L Carbon Dioxide 33 H Anion Gap 10 L BUN 21 H Creatinine 1.39 Estim Creat Clear Calc 58.4 Estimated GFR 49 POC Glucose Random Glucose 132 H Lactic Acid 1.3 Calcium 8.4 Total Bilirubin 0.5 AST 18 ALT 13 Alkaline Phosphatase 62 Troponin I High Sens C-Reactive Protein 14.29 H Total Protein 6.8 Albumin 3.1 L Lipase < 4 L Urine Color Urine Appearance Urine pH Ur Specific [place] Urine Protein Urine Glucose (UA) Urine Ketones Urine Blood Urine Nitrite Ur Leukocyte Esterase Urine RBC Urine WBC Urine WBC Clumps Ur Squamous Epith Cells Amorphous Sediment Urine Bacteria COVID-19 (RU) Negative COVID-19 Clin Com See Note 12/17/20 12/17/20 12/17/20 11:37 13:32 19:00 WBC RBC Hgb Hct MCV MCH MCHC RDW Plt Count MPV Immature Gran % (Auto) Neut % (Auto) Lymph % (Auto) Menard % (Auto) Eos % (Auto) Baso % (Auto) Lymph # (Auto) Menard # (Auto) Eos # (Auto) Baso # (Auto) Abs Immat Gran (auto) Absolute Neuts (auto) Absolute Nucleated RBC Nucleated RBC % (auto) PT 24.4 H INR 2.0 H APTT 37.4 Sodium Potassium Chloride Carbon Dioxide Anion Gap BUN Creatinine Estim Creat Clear Calc Estimated GFR POC Glucose 106 Random Glucose Lactic Acid Calcium Total Bilirubin AST ALT Alkaline Phosphatase Troponin I High Sens C-Reactive Protein Total Protein Albumin Lipase Urine Color YELLOW Urine Appearance HAZY Urine pH 6.0 Ur Specific [place] 1.010 Urine Protein TRACE Urine Glucose (UA) NEG Urine Ketones NEG Urine Blood 2+ H Urine Nitrite POS H Ur Leukocyte Esterase 2+ H Urine RBC 0 Urine WBC TNTC H Urine WBC Clumps NOTED Ur Squamous Epith Cells TRACE Amorphous Sediment TRACE Urine Bacteria 2+ COVID-19 (RU) COVID-19 Clin Com 12/17/20 12/18/20 12/18/20 20:28 05:48 05:48 WBC 13.2 H RBC 2.82 L Hgb 8.2 L Hct 26.0 L MCV 92.2 MCH 29.1 MCHC 31.5 RDW 16.2 H Plt Count 294 MPV 9.0 L Immature Gran % (Auto) 0.5 H Neut % (Auto) 82.4 H Lymph % (Auto) 7.8 L Menard % (Auto) 8.4 Eos % (Auto) 0.7 Baso % (Auto) 0.2 Lymph # (Auto) 1.0 L Menard # (Auto) 1.1 Eos # (Auto) 0.1 Baso # (Auto) 0.0 Abs Immat Gran (auto) 0.07 H Absolute Neuts (auto) 10.9 H Absolute Nucleated RBC 0.000 Nucleated RBC % (auto) 0.0 PT INR APTT Sodium 136 Potassium 3.7 Chloride 95 L Carbon Dioxide 32 H Anion Gap 13 BUN 21 H Creatinine 1.47 H Estim Creat Clear Calc 55.2 Estimated GFR 46 POC Glucose 206 H Random Glucose 100 Lactic Acid Calcium 7.9 L Total Bilirubin AST ALT Alkaline Phosphatase Troponin I High Sens C-Reactive Protein Total Protein Albumin Lipase Urine Color Urine Appearance Urine pH Ur Specific [place] Urine Protein Urine Glucose (UA) Urine Ketones Urine Blood Urine Nitrite Ur Leukocyte Esterase Urine RBC Urine WBC Urine WBC Clumps Ur Squamous Epith Cells Amorphous Sediment Urine Bacteria COVID-19 (RU) COVID-19 Clin Com 12/18/20 12/18/20 07:27 10:04 WBC RBC Hgb Hct MCV MCH MCHC RDW Plt Count MPV Immature Gran % (Auto) Neut % (Auto) Lymph % (Auto) Menard % (Auto) Eos % (Auto) Baso % (Auto) Lymph # (Auto) Menard # (Auto) Eos # (Auto) Baso # (Auto) Abs Immat Gran (auto) Absolute Neuts (auto) Absolute Nucleated RBC Nucleated RBC % (auto) PT INR APTT Sodium Potassium Chloride Carbon Dioxide Anion Gap BUN Creatinine Estim Creat Clear Calc Estimated GFR POC Glucose 96 Random Glucose Lactic Acid Calcium Total Bilirubin AST ALT Alkaline Phosphatase Troponin I High Sens 4.2 C-Reactive Protein Total Protein Albumin Lipase Urine Color Urine Appearance Urine pH Ur Specific [place] Urine Protein Urine Glucose (UA) Urine Ketones Urine Blood Urine Nitrite Ur Leukocyte Esterase Urine RBC Urine WBC Urine WBC Clumps Ur Squamous Epith Cells Amorphous Sediment Urine Bacteria COVID-19 (RU) COVID-19 Clin Com EKG shows normal sinus rhythm with left bundle-branch block, unchanged from before Imaging Radiologist's impression: Impressions Abdomen/Pelvis CT 12/17/20 10:45 IMPRESSION: There is a Jacobs catheter in penis/penile urethra. There is diffuse soft tissue swelling, skin thickening and stranding of the subcutaneous fat in the perineal region surrounding the scrotum and the penis. There is a fluid collection with enhancing wall seen in the dorsal left side of the penis measuring 3 x 5 x 6.5 cm in AP transverse and longitudinal dimension questionable for an abscess. No abnormal air in the soft tissues to suggest gangrene is seen. Left renal stones, largest a 1.8 x 2 cm staghorn stone in the left renal pelvis. Severe constipation/obstipation. Gallstones. Increased interstitial markings at the lung bases suggestive of interstitial lung disease. Chest X-Ray 12/17/20 10:46 IMPRESSION: Bilateral prominent interstitium likely chronic changes. No acute consolidation seen. Assessment and Plan (1) Atypical chest pain: Status: Acute Patient's chest discomfort is very atypical. Patient is a very difficult historian however appears that his chest pain is probably related to gastritis/acid reflux. However given his multiple risk factors and age, acute myocardial ischemia should be ruled out. He has EKG is nondiagnostic. Will obtain a troponin now and repeat another troponin 3 hours. Both of these are negative, likelihood of acute coronary syndrome is extremely low. He would then be optimized to undergo noncardiac surgery under general anesthesia. Consider treating his acid reflux disease with p.o. cocktail and/proton pump inhibitor therapy. He does have prior history of paroxysmal atrial fibrillation on Eliquis for the same. His Eliquis is been appropriately held. Resume as soon as possible after surgery. No signs of congestive heart failure at this time. Hold diuretic therapy this point time. Continue to manage is medical/surgical condition as per the hospitalist team. Will sign of the case. Thank you for allowing us to partake in his care
--- NOTE | 2020-12-18 11:49 | P.PNIM_ITS ---
Subjective Subjective Date of Service: 12/18/20 Interval History: This am, pt developed burning sensation in lower chest. Feels like heartburn . Asking for water. Physical Exam Vital Signs: Vital Signs: Last Vital Signs Temp 98.0 F 12/18/20 07:43 Pulse 79 12/18/20 09:24 Resp 16 12/18/20 07:43 BP 122/52 L 12/18/20 09:24 Pulse Ox 92 12/18/20 09:24 Body Mass Index 30.9 Gen: in no acute distress, alert and conversant HEENT: sclera anicteric, moist mucus membranes Neck: supple Lungs: clear to auscultation bilaterally Heart: regular rate and rhythm, no murmurs noted Abd: soft, non-tender, non-distended : Jacobs in place. erythematous and indurated penis, scrotum, suprapubic area, and perineum. no necrosis. no crepitus. Ext: no edema Skin: warm/well-perfused Neuro: alert and oriented x3, no focal findings Psych: appropriate affect Objective Data Current Medications Generic Name Dose Route Start Last Admin Trade Name Freq PRN Reason Stop Dose Admin Acetaminophen 650 mg 12/17/20 17:28 Acetaminophen 325 Mg Tablet PO Q6H PRN Pain, Mild (Pain Scale 1-3) Bisacodyl 10 mg 12/17/20 17:35 Bisacodyl 10 Mg Supp.Rect [place] DAILY PRN Constipation Cyanocobalamin 1,000 mcg 12/18/20 09:00 12/18/20 07:49 Cyanocobalamin (Vitamin B-12) 1,000 Mcg Tablet PO 1,000 mcg DAILY ROXANN Administration Docusate Sodium 100 mg 12/17/20 17:28 Docusate Sodium 100 Mg Capsule PO DAILY PRN Constipation Escitalopram Oxalate 10 mg 12/18/20 09:00 12/18/20 07:49 Escitalopram Oxalate 10 Mg Tablet PO 10 mg DAILY ROXANN Administration Fluticasone Propionate 1 spray 12/18/20 09:00 12/18/20 10:20 Fluticasone Propionate Nasal 16 Gm [place] NOSTRIL-B 1 spray DAILY ROXANN Administration Furosemide 40 mg 12/18/20 09:00 12/18/20 10:20 Furosemide 40 Mg Tablet PO 40 mg DAILY ROXANN Administration Protocol Piperacillin Sod/Tazobactam 100 mls @ 200 mls/hr 12/17/20 17:28 12/18/20 1 1:21 Sod 4.5 gm/ Sodium Chloride IV 200 mls/hr Q6H ROXANN Administration Vancomycin HCl 1,250 mg/ 250 mls @ 166.667 mls/hr 12/18/20 13:00 Sodium Chloride IV Q24H ROXANN Lactated Ringer's 500 mls @ 50 mls/hr 12/18/20 09:00 12/18/20 09:16 Lr IVCONT 12/18/20 18:59 50 mls/hr .Q10H ROXANN Administration Insulin Human Lispro 0 unit 12/17/20 17:28 12/18/20 08:02 Insulin Lispro 100 Unit/Ml 3 Ml Vial SUBCUT Not Given QIDACHS [facility] Protocol Magnesium Hydroxide 30 ml 12/17/20 17:35 Milk Of Magnesia 30 Ml Oral.Susp PO BEDTIME PRN Constipation Morphine Sulfate 2 mg 12/17/20 17:28 Morphine Sulfate 4 Mg/Ml Cartridge IVPUSH Q4H PRN Pain, Severe (Pain Scale 7-10) Multivitamins/Vitamin C 1 tab 12/18/20 09:00 12/18/20 07:49 Multivitamin Tablet PO 1 tab DAILY ROXANN Administration Ondansetron HCl 4 mg 12/17/20 17:28 Ondansetron Hcl 4 Mg/2 Ml Vial IVPUSH Q8H PRN Nausea and Vomiting Oxycodone HCl 10 mg 12/17/20 17:35 12/17/20 18:57 Oxycodone Hcl Immed Release 5 Mg Tablet PO 10 mg Q6H PRN Administration Pain Pharmacy Consult 1 each 12/17/20 10:55 Consult Rx Vancomycin Dosing MISCELLANE DAILY PRN Consult order Pharmacy Consult 1 each 12/17/20 15:13 Consult Rx Perform Med Rec MISCELLANE ONCE PRN Consult order Potassium Chloride 20 meq 12/18/20 09:00 12/18/20 09:20 Potassium Chloride Er 20 Meq Tab.Er.Prt PO 20 meq DAILY ROXANN Administration Sodium Chloride 3 ml 12/18/20 00:00 12/18/20 07:50 0.9 % Sodium Chloride Flush 3 Ml Syringe IVFLUSH 3 ml QSHIFT ROXANN Administration Labs CBC & Chem 7: 12/18/20 05:48 12/18/20 05:48 Labs: Laboratory Results - last 24 hr 12/17/20 12/17/20 12/17/20 11:00 11:37 13:32 WBC RBC Hgb Hct MCV MCH MCHC RDW Plt Count MPV Immature Gran % (Auto) Neut % (Auto) Lymph % (Auto) [place] % (Auto) Eos % (Auto) Baso % (Auto) Lymph # (Auto) [place] # (Auto) Eos # (Auto) Baso # (Auto) Abs Immat Gran (auto) Absolute Neuts (auto) Absolute Nucleated RBC Nucleated RBC % (auto) PT 24.4 H INR 2.0 H APTT 37.4 Sodium Potassium Chloride Carbon Dioxide Anion Gap BUN Creatinine Estim Creat Clear Calc Estimated GFR POC Glucose Random Glucose Calcium Troponin I High Sens C-Reactive Protein 14.29 H Urine Color YELLOW Urine Appearance HAZY Urine pH 6.0 Ur Specific [place] 1.010 Urine Protein TRACE Urine Glucose (UA) NEG Urine Ketones NEG Urine Blood 2+ H Urine Nitrite POS H Ur Leukocyte Esterase 2+ H Urine RBC 0 Urine WBC TNTC H Urine WBC Clumps NOTED Ur Squamous Epith Cells TRACE Amorphous Sediment TRACE Urine Bacteria 2+ 12/17/20 12/17/20 12/18/20 19:00 20:28 05:48 WBC 13.2 H RBC 2.82 L Hgb 8.2 L Hct 26.0 L MCV 92.2 MCH 29.1 MCHC 31.5 RDW 16.2 H Plt Count 294 MPV 9.0 L Immature Gran % (Auto) 0.5 H Neut % (Auto) 82.4 H Lymph % (Auto) 7.8 L [place] % (Auto) 8.4 Eos % (Auto) 0.7 Baso % (Auto) 0.2 Lymph # (Auto) 1.0 L [place] # (Auto) 1.1 Eos # (Auto) 0.1 Baso # (Auto) 0.0 Abs Immat Gran (auto) 0.07 H Absolute Neuts (auto) 10.9 H Absolute Nucleated RBC 0.000 Nucleated RBC % (auto) 0.0 PT INR APTT Sodium Potassium Chloride Carbon Dioxide Anion Gap BUN Creatinine Estim Creat Clear Calc Estimated GFR POC Glucose 106 206 H Random Glucose Calcium Troponin I High Sens C-Reactive Protein Urine Color Urine Appearance Urine pH Ur Specific [place] Urine Protein Urine Glucose (UA) Urine Ketones Urine Blood Urine Nitrite Ur Leukocyte Esterase Urine RBC Urine WBC Urine WBC Clumps Ur Squamous Epith Cells Amorphous Sediment Urine Bacteria 12/18/20 12/18/20 12/18/20 05:48 07:27 10:04 WBC RBC Hgb Hct MCV MCH MCHC RDW Plt Count MPV Immature Gran % (Auto) Neut % (Auto) Lymph % (Auto) [place] % (Auto) Eos % (Auto) Baso % (Auto) Lymph # (Auto) [place] # (Auto) Eos # (Auto) Baso # (Auto) Abs Immat Gran (auto) Absolute Neuts (auto) Absolute Nucleated RBC Nucleated RBC % (auto) PT INR APTT Sodium 136 Potassium 3.7 Chloride 95 L Carbon Dioxide 32 H Anion Gap 13 BUN 21 H Creatinine 1.47 H Estim Creat Clear Calc 55.2 Estimated GFR 46 POC Glucose 96 Random Glucose 100 Calcium 7.9 L Troponin I High Sens 4.2 C-Reactive Protein Urine Color Urine Appearance Urine pH Ur Specific [place] Urine Protein Urine Glucose (UA) Urine Ketones Urine Blood Urine Nitrite Ur Leukocyte Esterase Urine RBC Urine WBC Urine WBC Clumps Ur Squamous Epith Cells Amorphous Sediment Urine Bacteria Assessment and Plan (1) Abscess of penis: Status: Acute (2) Cellulitis of scrotum: Status: Acute (3) Atypical chest pain: Status: Acute Assessment and Plan: hospital d#2 80yo M resident of [facility] with PMHx DM2, AF on apixaban, CHF admitted for worsening scrotal/penile cellulitis, failed outpatient antibiotics, now with penile abscess # penile abscess # scrotal cellulitis - NPO for operative debridement by Urology this afternoon (last apixaban dose yesterday at 10:00) - vancomycin + piperacillin/tazobactam d#2, ID consult pending - no evidence of Medina's gangrene at this time # atypical chest pain - EKG with LBBB, no ischemic changes by Sgarbossa's criteria. Cardiology consulted. hs-Tn-I 4.2, will recheck in 3 hr and if no delta >50% may proceed to OR. 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 hold apixaban as above for OR and resume postop # CHF - not decompensated. resume maintenance diuretic postop # DM2, A1c 6.1 - correction-dose lispro # depression - continue escitalopram # VTE ppx - hold apixaban for surgery; apply SCDs; resume postop
[2020-12-18 12:00] LABS: Glucose, Whole Blood 95 mg/dL (60-115)
[2020-12-18 12:29] LABS: Immature Retic Fraction 25.9 % (2.3-13.4); Retic HGB Equivalent 28.6 pg (30.0-35.0); Reticulocyte Percent 1.7 % (0.5-1.8); Reticulocytes Absolute 0.048 X10*6/uL (0.026-0.095)
[2020-12-18 12:43] LABS: Iron 14 mcg/dL (45-160); Percent Iron Saturation 8 % (15-50); Total Iron Binding Capacity 176 mcg/dL (228-428); Unsaturated Iron Binding 162 ug/dL
[2020-12-18 13:03] LABS: Ferritin 205 ng/mL (20-250)
[2020-12-18] MEDS: vancomycin HCL 1,250 MG in 0.9 % Sodium Chloride 250 ML 166.67 MG IV (13:23)
[2020-12-18] MEDS: Famotidine/PF 20 MG/2 ML VIAL IVPUSH (13:23)
[2020-12-18 14:58] LABS: Troponin-I High Sensitivity 4.7 ng/L (<3.5-35.0)
[2020-12-18 16:36] LABS: Glucose, Whole Blood 103 mg/dL (60-115)
--- NOTE | 2020-12-18 17:01 | P.CNUR_ITS ---
History of Present Illness Consult details Consult date: 12/18/20 Narrative: 80-year-old male [facility] patient Came to hospital with question of scrotal abscess CT imaging shows 6 cm x 4 cm x 7 cm penoscrotal abscess Recommendation is drainage Should be performed in controlled environment Was admitted to reverse anticoagulation Had atypical chest pain question of gastritis Normal troponins Plan for incision and drainage in operating room PMFSH Past Medical History Medical History (Updated 12/18/20 @ 17:03 by Mateus Bradshaw MD) Atrial fibrillation Benign prostate hyperplasia CHF (congestive heart failure) CKD (chronic kidney disease) stage 3, GFR 30-59 ml/min Hypertension Left bundle branch block Osteoarthritis Spinal stenosis Type 2 diabetes mellitus Urine retention Family History Family History Other No family history of cardiovascular disease Surgical History Surgical History H/O spinal fusion History of ligation of vein Social History Social History Household Members: None Housing: Snf Do you presently have visiting nurse or other home services: No Unable to assess alcohol history related to: Unknown Alcohol intake: never Smoking Status: Unknown if ever smoked Smoked in Last 30 Days: No Use of substances other than those prescribed or required for medical reasons: Unknown Currently Displaying Signs/Symptoms of Drug Intoxication Withdrawal: No Advance Directives: Yes Advance Directives on File: Yes Advance Directives Date on File: 12/17/20 Do you have thoughts of harming others: None Do you have a plan to hurt others: No Plan Recently lost weight without trying: Unsure service: Yes Current occupational status: retired Meds Allergies Allergy/AdvReac Type Severity Reaction Status Date / Time Morphine AdvReac Intermediate vomiting Uncoded 12/17/20 10:43 Active Medications: Current Medications Generic Name Dose Route Start Last Admin Trade Name Freq PRN Reason Stop Dose Admin Acetaminophen 650 mg 12/17/20 17:28 Acetaminophen 325 Mg Tablet PO Q6H PRN Pain, Mild (Pain Scale 1-3) Bisacodyl 10 mg 12/17/20 17:35 Bisacodyl 10 Mg Supp.Rect [place] DAILY PRN Constipation Cyanocobalamin 1,000 mcg 12/18/20 09:00 12/18/20 07:49 Cyanocobalamin (Vitamin B-12) 1,000 Mcg Tablet PO 1,000 mcg DAILY ROXANN Administration Docusate Sodium 100 mg 12/17/20 17:28 Docusate Sodium 100 Mg Capsule PO DAILY PRN Constipation Escitalopram Oxalate 10 mg 12/18/20 09:00 12/18/20 07:49 Escitalopram Oxalate 10 Mg Tablet PO 10 mg DAILY ROXANN Administration Fluticasone Propionate 1 spray 12/18/20 09:00 12/18/20 10:20 Fluticasone Propionate Nasal 16 Gm [place] NOSTRIL-B 1 spray DAILY ROXANN Administration Furosemide 40 mg 12/18/20 09:00 12/18/20 10:20 Furosemide 40 Mg Tablet PO 40 mg DAILY ROXANN Administration Protocol Piperacillin Sod/Tazobactam 100 mls @ 200 mls/hr 12/17/20 17:28 12/18/20 12:09 Sod 4.5 gm/ Sodium Chloride IV Infused Q6H ROXANN Infusion Vancomycin HCl 1,250 mg/ 250 mls @ 166.667 mls/hr 12/18/20 13:00 12/18/20 15:57 Sodium Chloride IV Infused Q24H ROXANN Infusion Lactated Ringer's 500 mls @ 50 mls/hr 12/18/20 09:00 12/18/20 09:16 Lr IVCONT 12/18/20 18:59 50 mls/hr .Q10H ROXANN Administration Insulin Human Lispro 0 unit 12/17/20 17:28 12/18/20 17:00 Insulin Lispro 100 Unit/Ml 3 Ml Vial SUBCUT Not Given QIDACHS [facility] Protocol Magnesium Hydroxide 30 ml 12/17/20 17:35 Milk Of Magnesia 30 Ml Oral.Susp PO BEDTIME PRN Constipation Morphine Sulfate 2 mg 12/17/20 17:28 Morphine Sulfate 4 Mg/Ml Cartridge IVPUSH Q4H PRN Pain, Severe (Pain Scale 7-10) Multivitamins/Vitamin C 1 tab 12/18/20 09:00 12/18/20 07:49 Multivitamin Tablet PO 1 tab DAILY ROXANN Administration Ondansetron HCl 4 mg 12/17/20 17:28 Ondansetron Hcl 4 Mg/2 Ml Vial IVPUSH Q8H PRN Nausea and Vomiting Oxycodone HCl 10 mg 12/17/20 17:35 12/17/20 18:57 Oxycodone Hcl Immed Release 5 Mg Tablet PO 10 mg Q6H PRN Administration Pain Pharmacy Consult 1 each 12/17/20 10:55 Consult Rx Vancomycin Dosing MISCELLANE DAILY PRN Consult order Pharmacy Consult 1 each 12/17/20 15:13 Consult Rx Perform Med Rec MISCELLANE ONCE PRN Consult order Potassium Chloride 20 meq 12/18/20 09:00 12/18/20 09:20 Potassium Chloride Er 20 Meq Tab.Er.Prt PO 20 meq DAILY ROXANN Administration Sodium Chloride 3 ml 12/18/20 00:00 12/18/20 17:00 0.9 % Sodium Chloride Flush 3 Ml Syringe IVFLUSH Not Given QSHIFT [facility] Home Medications Medication Instructions Recorded Confirmed Last Taken Type acetaminophen 650 mg PO Q4H PRN 12/17/20 12/17/20 12/17/20 History apixaban 5 mg PO BID 12/17/20 12/17/20 12/17/20 History 1 bisacodyl 10 mg [place] DAILY PRN 12/17/20 12/17/20 12/05/20 History ceftriaxone 1 g IM DAILY 12/17/20 12/17/20 12/17/20 History cyanocobalamin (vitamin B-12) 1,000 mcg PO DAILY 12/17/20 12/17/20 12/17/20 History escitalopram oxalate 10 mg PO DAILY 12/17/20 12/17/20 12/17/20 History fluticasone propionate 1 spray INTRANASAL DAILY 12/17/20 12/17/20 12/17/20 History furosemide 40 mg PO DAILY 12/17/20 12/17/20 12/17/20 History loperamide 2 mg PO Q3H PRN 12/17/20 12/17/20 12/10/20 History magnesium hydroxide [Milk of 30 ml PO BEDTIME PRN 12/17/20 12/17/20 12/04/20 History Magnesia] multivitamin 1 tab PO DAILY 12/17/20 12/17/20 12/17/20 History oxycodone 10 mg PO BID 12/17/20 12/17/20 12/17/20 History oxycodone 10 mg PO Q6H PRN 12/17/20 12/17/20 Unknown History potassium chloride 20 meq PO DAILY 12/17/20 12/17/20 12/17/20 History sodium phosphates [Fleet Enema] 118 ml [place] DAILY PRN 12/17/20 12/17/20 Unknown History Physical Exam Vital Signs: Vital Signs: Last Vital Signs Temp 97.7 F 12/18/20 15:27 Pulse 71 12/18/20 15:27 Resp 19 12/18/20 15:27 BP 106/59 L 12/18/20 15:27 Pulse Ox 95 12/18/20 15:27 Body Mass Index 30.9 Const: General: cooperative, healthy appearing, comfortable and no acute distress Nutritional Appearance: average body habitus Orientation/consciousness: oriented to person, oriented to place and oriented to time Eyes: General: appearance normal, both eyes and all related structures Chest: Chest palpation & inspection: normal inspection of the chest Resp: Effort & Inspection: normal respiratory effort Cardio: Rate: regular rate GI: Inspection: Yes normal to inspection Skin: Hair: normal Neuro: General: oriented to person, oriented to place and oriented to time Extrem: General: Yes normal to inspection Results Labs Result diagrams: 12/18/20 05:48 12/18/20 05:48 Labs: Abnormal lab results 12/17/20 12/18/20 12/18/20 Range/Units 20:28 05:48 05:48 WBC 13.2 H (4.8-10.8) X10*3/uL RBC 2.82 L (4.60-5.80) X10*6/uL Hgb 8.2 L (14.0-18.0) g/dl Hct 26.0 L (42-52) % RDW 16.2 H (11.0-16.0) % MPV 9.0 L (9.4-12.4) fL Immature Gran % (Auto) 0.5 H (0.0-0.4) % Neut % (Auto) 82.4 H (45-73) % Lymph % (Auto) 7.8 L (20-40) % Lymph # (Auto) 1.0 L (1.2-4.9) X10*3/uL Abs Immat Gran (auto) 0.07 H (0.00-0.03) X10*3/uL Absolute Neuts (auto) 10.9 H (2.0-8.3) X10*3/uL Immature Retic Fraction 25.9 H (2.3-13.4) % Retic Hgb Equivalent 28.6 L (30.0-35.0) pg Chloride 95 L (96-108) mmol/L Carbon Dioxide 32 H (22-29) mmol/L BUN 21 H (9-16) mg/dL Creatinine 1.47 H (0.5-1.4) mg/dL POC Glucose 206 H (60-115) mg/dL Calcium 7.9 L (8.4-10.2) mg/dL Iron 14 L (45-160) mcg/dL TIBC 176 L (228-428) mcg/dL % Saturation 8 L (15-50) % Short CBC 12/18/20 Range/Units 05:48 WBC 13.2 H (4.8-10.8) X10*3/uL Hgb 8.2 L (14.0-18.0) g/dl Hct 26.0 L (42-52) % Plt Count 294 (160-400) X10*3/uL BMP 12/18/20 05:48 Sodium 136 Potassium 3.7 Chloride 95 L Carbon Dioxide 32 H BUN 21 H Creatinine 1.47 H Calcium 7.9 L Urine 12/17/20 Range/Units 13:32 Urine Color YELLOW Urine Appearance HAZY Urine pH 6.0 (5.0-8.0) Ur Specific [place] 1.010 (1.005-1.025) Urine Protein TRACE (NEG-TRACE) MG/DL Urine Glucose (UA) NEG (NEG) MG/DL All other labs normal. CT Abdopmen - There is a fluid collection with enhancing wall seen in the dorsal left penis measuring 3 x 5 x 6.5 cm in AP transverse and longitudinal dimension questionable for an abscess. No abnormal air in the soft tissues is seen. The prostate gland does not appear enlarged Assessment and Plan (1) Abscess of penis: Problem details: Plan for drainage Status: Acute Abscess of penis Plan for drainage
--- NOTE | 2020-12-18 17:04 | P.CONAN_ITS ---
[facility] Active Problems Active Problems: All Active Problems (Updated 12/18/20 @ 17:03 by Mateus drake MD) Left bundle branch block (Acute) Atypical chest pain (Acute) Abscess of penis (Acute) Cellulitis of scrotum (Acute) Past Medical History Medical History Atrial fibrillation Benign prostate hyperplasia CHF (congestive heart failure) CKD (chronic kidney disease) stage 3, GFR 30-59 ml/min Hypertension Left bundle branch block Osteoarthritis Spinal stenosis Type 2 diabetes mellitus Urine retention Family History Family History Other No family history of cardiovascular disease Surgical History Surgical History H/O spinal fusion History of ligation of vein Social History Social History Household Members: None Housing: Custodial Do you presently have visiting nurse or other home services: No Unable to assess alcohol history related to: Unknown Alcohol intake: never Smoking Status: Unknown if ever smoked Smoked in Last 30 Days: No Use of substances other than those prescribed or required for medical reasons: Unknown Currently Displaying Signs/Symptoms of Drug Intoxication Withdrawal: No Advance Directives: Yes Advance Directives on File: Yes Advance Directives Date on File: 12/17/20 Do you have thoughts of harming others: None Do you have a plan to hurt others: No Plan Recently lost weight without trying: Unsure service: Yes Current occupational status: retired Meds Allergies Allergy/AdvReac Type Severity Reaction Status Date / Time Morphine AdvReac Intermediate vomiting Uncoded 12/17/20 10:43 Active Medications: Current Medications Generic Name Dose Route Start Last Admin Trade Name Freq PRN Reason Stop Dose Admin Acetaminophen 650 mg 12/17/20 17:28 Acetaminophen 325 Mg Tablet PO Q6H PRN Pain, Mild (Pain Scale 1-3) Bisacodyl 10 mg 12/17/20 17:35 Bisacodyl 10 Mg Supp.Rect MT DAILY PRN Constipation Cyanocobalamin 1,000 mcg 12/18/20 09:00 12/18/20 07:49 Cyanocobalamin (Vitamin B-12) 1,000 Mcg Tablet PO 1,000 mcg DAILY ROXANN Administration Docusate Sodium 100 mg 12/17/20 17:28 Docusate Sodium 100 Mg Capsule PO DAILY PRN Constipation Escitalopram Oxalate 10 mg 12/18/20 09:00 12/18/20 07:49 Escitalopram Oxalate 10 Mg Tablet PO 10 mg DAILY ROXANN Administration Fluticasone Propionate 1 spray 12/18/20 09:00 12/18/20 10:20 Fluticasone Propionate Nasal 16 Gm [place] NOSTRIL-B 1 spray DAILY ROXANN Administration Furosemide 40 mg 12/18/20 09:00 12/18/20 10:20 Furosemide 40 Mg Tablet PO 40 mg DAILY ROXANN Administration Protocol Piperacillin Sod/Tazobactam 100 mls @ 200 mls/hr 12/17/20 17:28 12/18/20 12:09 Sod 4.5 gm/ Sodium Chloride IV Infused Q6H ROXANN Infusion Vancomycin HCl 1,250 mg/ 250 mls @ 166.667 mls/hr 12/18/20 13:00 12/18/20 15:57 Sodium Chloride IV Infused Q24H ROXANN Infusion Lactated Ringer's 500 mls @ 50 mls/hr 12/18/20 09:00 12/18/20 09:16 Lr IVCONT 12/18/20 18:59 50 mls/hr .Q10H ROXANN Administration Insulin Human Lispro 0 unit 12/17/20 17:28 12/18/20 17:00 Insulin Lispro 100 Unit/Ml 3 Ml Vial SUBCUT Not Given QIDACHS [facility] Protocol Magnesium Hydroxide 30 ml 12/17/20 17:35 Milk Of Magnesia 30 Ml Oral.Susp PO BEDTIME PRN Constipation Morphine Sulfate 2 mg 12/17/20 17:28 Morphine Sulfate 4 Mg/Ml Cartridge IVPUSH Q4H PRN Pain, Severe (Pain Scale 7-10) Multivitamins/Vitamin C 1 tab 12/18/20 09:00 12/18/20 07:49 Multivitamin Tablet PO 1 tab DAILY ROXANN Administration Ondansetron HCl 4 mg 12/17/20 17:28 Ondansetron Hcl 4 Mg/2 Ml Vial IVPUSH Q8H PRN Nausea and Vomiting Oxycodone HCl 10 msg 12/17/20 17:35 12/17/20 18:57 Oxycodone Hcl Immed Release 5 Mg Tablet PO 10 mg Q6H PRN Administration Pain Pharmacy Consult 1 each 12/17/20 10:55 Consult Rx Vancomycin Dosing MISCELLANE DAILY PRN Consult order Pharmacy Consult 1 each 12/17/20 15:13 Consult Rx Perform Med Rec MISCELLANE ONCE PRN Consult order Potassium Chloride 20 meq 12/18/20 09:00 12/18/20 09:20 Potassium Chloride Er 20 Meq Tab.Er.Prt PO 20 meq DAILY ROXANN Administration Sodium Chloride 3 ml 12/18/20 00:00 12/18/20 17:00 0.9 % Sodium Chloride Flush 3 Ml Syringe IVFLUSH Not Given QSHIFT [facility] Home Medications Medication Instructions Recorded Confirmed Last Taken Type acetaminophen 650 mg PO Q4H PRN 12/17/20 12/17/20 12/17/20 History apixaban 5 mg PO BID 12/17/20 12/17/20 12/17/20 History 1 bisacodyl 10 mg MT DAILY PRN 12/17/20 12/17/20 12/05/20 History ceftriaxone 1 g IM DAILY 12/17/20 12/17/20 12/17/20 History cyanocobalamin (vitamin B-12) 1,000 mcg PO DAILY 12/17/20 12/17/20 12/17/20 History escitalopram oxalate 10 mg PO DAILY 12/17/20 12/17/20 12/17/20 History fluticasone propionate 1 spray INTRANASAL DAILY 12/17/20 12/17/20 12/17/20 History furosemide 40 mg PO DAILY 12/17/20 12/17/20 12/17/20 History loperamide 2 mg PO Q3H PRN 12/17/20 12/17/20 12/10/20 History magnesium hydroxide [Milk of 30 ml PO BEDTIME PRN 12/17/20 12/17/20 12/04/20 History Magnesia] multivitamin 1 tab PO DAILY 12/17/20 12/17/20 12/17/20 History oxycodone 10 mg PO BID 12/17/20 12/17/20 12/17/20 History oxycodone 10 mg PO Q6H PRN 12/17/20 12/17/20 Unknown History potassium chloride 20 meq PO DAILY 12/17/20 12/17/20 12/17/20 History sodium phosphates [Fleet Enema] 118 ml MT DAILY PRN 12/17/20 12/17/20 Unknown History Exam Exam Date and Time: December 18, 2020 1704 Height,Weight and Vital Signs: Height 6 ft 5 in Weight 118.5 kg Last Vital Signs Temp 97.7 F 12/18/20 15:27 Pulse 71 12/18/20 15:27 Resp 19 12/18/20 15:27 BP 106/59 L 12/18/20 15:27 Pulse Ox 95 12/18/20 15:27 Pertinent Lab Results Pertinent Lab Results: Laboratory Tests 12/17/20 12/17/20 12/17/20 11:00 11:00 11:00 WBC 11.8 H RBC 3.11 L Hgb 9.0 L Hct 29.1 L MCV 93.6 MCH 28.9 MCHC 30.9 L RDW 16.0 Plt Count 308 MPV 8.8 L Immature Gran % (Auto) 0.6 H Neut % (Auto) 79.4 H Lymph % (Auto) 10.1 L [place] % (Auto) 9.1 Eos % (Auto) 0.5 Baso % (Auto) 0.3 Lymph # (Auto) 1.2 [place] # (Auto) 1.1 Eos # (Auto) 0.1 Baso # (Auto) 0.0 Abs Immat Gran (auto) 0.07 H Absolute Neuts (auto) 9.4 H Absolute Nucleated RBC 0.000 Nucleated RBC % (auto) 0.0 Absolute Retic Percent Retic Immature Retic Fraction Retic Hgb Equivalent PT INR APTT Sodium 133 L Potassium 3.6 Chloride 94 L Carbon Dioxide 33 H Anion Gap 10 L BUN 21 H Creatinine 1.39 Estim Creat Clear Calc 58.4 Estimated GFR 49 POC Glucose Random Glucose 132 H Lactic Acid 1.3 Calcium 8.4 Iron TIBC % Saturation Unsat Iron Binding Ferritin Total Bilirubin 0.5 AST 18 ALT 13 Alkaline Phosphatase 62 Troponin I High Sens C-Reactive Protein 14.29 H Total Protein 6.8 Albumin 3.1 L Lipase < 4 L Urine Color Urine Appearance Urine pH Ur Specific [place] Urine Protein Urine Glucose (UA) Urine Ketones Urine Blood Urine Nitrite Ur Leukocyte Esterase Urine RBC Urine WBC Urine WBC Clumps Ur Squamous Epith Cells Amorphous Sediment Urine Bacteria COVID-19 (RU) COVID-19 Clin Com 12/17/20 12/17/20 12/17/20 11:00 11:37 13:32 WBC RBC Hgb Hct MCV MCH MCHC RDW Plt Count MPV Immature Gran % (Auto) Neut % (Auto) Lymph % (Auto) [place] % (Auto) Eos % (Auto) Baso % (Auto) Lymph # (Auto) [place] # (Auto) Eos # (Auto) Baso # (Auto) Abs Immat Gran (auto) Absolute Neuts (auto) Absolute Nucleated RBC Nucleated RBC % (auto) Absolute Retic Percent Retic Immature Retic Fraction Retic Hgb Equivalent PT 24.4 H INR 2.0 H APTT 37.4 Sodium Potassium Chloride Carbon Dioxide Anion Gap BUN Creatinine Estim Creat Clear Calc Estimated GFR POC Glucose Random Glucose Lactic Acid Calcium Iron TIBC % Saturation Unsat Iron Binding Ferritin Total Bilirubin AST ALT Alkaline Phosphatase Troponin I High Sens C-Reactive Protein Total Protein Albumin Lipase Urine Color YELLOW Urine Appearance HAZY Urine pH 6.0 Ur Specific [place] 1.010 Urine Protein TRACE Urine Glucose (UA) NEG Urine Ketones NEG Urine Blood 2+ H Urine Nitrite POS H Ur Leukocyte Esterase 2+ H Urine RBC 0 Urine WBC TNTC H Urine WBC Clumps NOTED Ur Squamous Epith Cells TRACE Amorphous Sediment TRACE Urine Bacteria 2+ COVID-19 (RU) Negative COVID-19 Clin Com See Note 12/17/20 12/17/20 12/18/20 19:00 20:28 05:48 WBC 13.2 H RBC 2.82 L Hgb 8.2 L Hct 26.0 L MCV 92.2 MCH 29.1 MCHC 31.5 RDW 16.2 H Plt Count 294 MPV 9.0 L Immature Gran % (Auto) 0.5 H Neut % (Auto) 82.4 H Lymph % (Auto) 7.8 L [place] % (Auto) 8.4 Eos % (Auto) 0.7 Baso % (Auto) 0.2 Lymph # (Auto) 1.0 L [place] # (Auto) 1.1 Eos # (Auto) 0.1 Baso # (Auto) 0.0 Abs Immat Gran (auto) 0.07 H Absolute Neuts (auto) 10.9 H Absolute Nucleated RBC 0.000 Nucleated RBC % (auto) 0.0 Absolute Retic 0.048 Percent Retic 1.7 Immature Retic Fraction 25.9 H Retic Hgb Equivalent 28.6 L PT INR APTT Sodium Potassium Chloride Carbon Dioxide Anion Gap BUN Creatinine Estim Creat Clear Calc Estimated GFR POC Glucose 106 206 H Random Glucose Lactic Acid Calcium Iron TIBC % Saturation Unsat Iron Binding Ferritin Total Bilirubin AST ALT Alkaline Phosphatase Troponin I High Sens C-Reactive Protein Total Protein Albumin Lipase Urine Color Urine Appearance Urine pH Ur Specific [place] Urine Protein Urine Glucose (UA) Urine Ketones Urine Blood Urine Nitrite Ur Leukocyte Esterase Urine RBC Urine WBC Urine WBC Clumps Ur Squamous Epith Cells Amorphous Sediment Urine Bacteria COVID-19 (RU) COVID-19 Clin Com 12/18/20 12/18/20 12/18/20 05:48 07:27 10:04 WBC RBC Hgb Hct MCV MCH MCHC RDW Plt Count MPV Immature Gran % (Auto) Neut % (Auto) Lymph % (Auto) [place] % (Auto) Eos % (Auto) Baso % (Auto) Lymph # (Auto) [place] # (Auto) Eos # (Auto) Baso # (Auto) Abs Immat Gran (auto) Absolute Neuts (auto) Absolute Nucleated RBC Nucleated RBC % (auto) Absolute Retic Percent Retic Immature Retic Fraction Retic Hgb Equivalent PT INR APTT Sodium 136 Potassium 3.7 Chloride 95 L Carbon Dioxide 32 H Anion Gap 13 BUN 21 H Creatinine 1.47 H Estim Creat Clear Calc 55.2 Estimated GFR 46 POC Glucose 96 Random Glucose 100 Lactic Acid Calcium 7.9 L Iron 14 L TIBC 176 L % Saturation 8 L Unsat Iron Binding 162 Ferritin 205 Total Bilirubin AST ALT Alkaline Phosphatase Troponin I High Sens 4.2 C-Reactive Protein Total Protein Albumin Lipase Urine Color Urine Appearance Urine pH Ur Specific [place] Urine Protein Urine Glucose (UA) Urine Ketones Urine Blood Urine Nitrite Ur Leukocyte Esterase Urine RBC Urine WBC Urine WBC Clumps Ur Squamous Epith Cells Amorphous Sediment Urine Bacteria COVID-19 (RU) COVID-19 Clin Com 12/18/20 12/18/20 12/18/20 11:37 14:20 16:28 WBC RBC Hgb Hct MCV MCH MCHC RDW Plt Count MPV Immature Gran % (Auto) Neut % (Auto) Lymph % (Auto) [place] % (Auto) Eos % (Auto) Baso % (Auto) Lymph # (Auto) [place] # (Auto) Eos # (Auto) Baso # (Auto) Abs Immat Gran (auto) Absolute Neuts (auto) Absolute Nucleated RBC Nucleated RBC % (auto) Absolute Retic Percent Retic Immature Retic Fraction Retic Hgb Equivalent PT INR APTT Sodium Potassium Chloride Carbon Dioxide Anion Gap BUN Creatinine Estim Creat Clear Calc Estimated GFR POC Glucose 95 103 Random Glucose Lactic Acid Calcium Iron TIBC % Saturation Unsat Iron Binding Ferritin Total Bilirubin AST ALT Alkaline Phosphatase Troponin I High Sens 4.7 C-Reactive Protein Total Protein Albumin Lipase Urine Color Urine Appearance Urine pH Ur Specific [place] Urine Protein Urine Glucose (UA) Urine Ketones Urine Blood Urine Nitrite Ur Leukocyte Esterase Urine RBC Urine WBC Urine WBC Clumps Ur Squamous Epith Cells Amorphous Sediment Urine Bacteria COVID-19 (RU) COVID-19 Clin Com Airway Mallampati Class: IV TM Dist: >3cm Neck ROM: Limited Heart: RRR Lungs: CTA
[2020-12-18] MEDS: levoFLOXacin 500 MG TABLET PO (17:18)
--- NOTE | 2020-12-18 18:18 | P.OP_ITS ---
Operative Note Operative Note Date of Service: 12/18/20 Narrative: PreOperative Diagnosis: Scrotal abscess Post Operative Diagnosis: Scrotal abscess Procedure: Incision and drainage with packing of scrotal abscess Surgeon: Dr Mateus Bradshaw Anesthesia: General Indications for procedure: 80-year-old male. Admitted with question of Medina's gangrene. On CT scan has a 7 cm by 4 cm scrotal abscess. No evidence of free air. Recommendation is incision drainage with packing. Procedure: After informed consent was verified the patient was brought to the operating room and placed in a supine position. Anesthesia was administered per protocol. Patient was prepped and draped in sterile fashion. Jacobs catheter was removed. Safety pause time-out was performed. Antibiotics being given. A midline incision was made approximately 3 in long on the scrotum. There was a large midline scrotal abscess. This was drained. It extended inferiorly toward the underside of the symphysis pubis. There was significant space and at its long this point the entire suction could be placed. There did not appear to be any communication with the urethra or bladder. The wound was irrigated copiously with normal saline. Swabs were taken for Infectious Disease. A 1 in packing was placed and an ABD pad was used as a dressing. Closure was not performed. A new 16 [place] Jacobs catheter was placed for drainage. He tolerated the procedure was extubated in the operating room and transferred in stable condition to the recovery area. Pathology: Swab Drains: 1 in packing
--- NOTE | 2020-12-18 18:18 | PM.OP ---
Brief Operative Note Date of Service: 12/18/20 Pre-op diagnosis: Scrotal abscess Post-op diagnosis: same Procedure: Incision and drainage of scrotal abscess Surgeon: Mateus Bradshaw MD Anesthesia: GLMA Estimated blood loss (mL): 0 Pathology: none sent Condition: stable Disposition: floor
[2020-12-18] MEDS: fentaNYL citrate/PF 100 MCG/2 ML VIAL 25 MCG IVPUSH ×3 (18:36→18:48)
[2020-12-18 20:32] LABS: Glucose, Whole Blood 121 mg/dL (60-115)
[2020-12-18] MEDS: oxyCODONE HCl Immed Release 5 MG TABLET 10 MG PO (21:19)
[2020-12-18] MEDS: ondansetron HCL 4 MG/2 ML VIAL IVPUSH (21:20)
[2020-12-19] MEDS: Piperacillin Sodium/Tazobactam 4.5 GM in 0.9 % Sodium Chloride 100 ML IV ×5 (00:14→22:52)
[2020-12-19] MEDS: 0.9 % Sodium Chloride Flush 3 ML SYRINGE IVFLUSH ×4 (00:15→23:53)
[2020-12-19] MEDS: HYDROmorphone HCl 2 MG TABLET 1 MG PO (00:49)
[2020-12-19] MEDS: oxyCODONE HCl Immed Release 5 MG TABLET 10 MG PO ×2 (02:52→16:37)
[2020-12-19 02:58] VITALS: BP 116/47; PULSE 75; RESP 18; TEMP 37; O2SAT 96
[2020-12-19 06:37] LABS: MANUAL DIFF FLAG NO
[2020-12-19 06:49] LABS: Basophils Percent Auto 0.2 % (0-2); Eosinophils Absolute Auto 0.1 X10*3/uL (0.0-0.4); Hematocrit 25.3 % (42-52); Imm Gran Abs Auto 0.05 X10*3/uL (0.00-0.03); Imm Gran Pct Auto 0.5 % (0.0-0.4); Lymphocytes Absolute Auto 1.2 X10*3/uL (1.2-4.9); Lymphocytes Percent Auto 11.9 % (20-40); Mean Corpuscular HGB Conc 31.6 g/dl (31.0-36.0); Mean Corpuscular Hemoglobin 29.1 pg (27.0-33.0); Mean Platelet Volume 8.8 fL (9.4-12.4); Monocytes Absolute Auto 0.9 X10*3/uL (0.1-1.2); Neutrophils Absolute Auto 7.9 X10*3/uL (2.0-8.3); Neutrophils Percent Auto 77.4 % (45-73); Platelet Count 275 X10*3/uL (160-400); Red Blood Count 2.75 X10*6/uL (4.60-5.80); White Blood Count 10.2 X10*3/uL (4.8-10.8)
[2020-12-19 07:14] LABS: Anion Gap 12 (12-20); Blood Urea Nitrogen 20 mg/dL (9-16); C Reactive Protein 16.99 mg/dL (< or = 0.50); Calcium 7.8 mg/dL (8.4-10.2); Carbon Dioxide 33 mmol/L (22-29); Chloride 96 mmol/L (96-108); Creatinine Clr Calc Pharmacy 57.2; Estimated Glomerular Filt Rate 48; Glucose Random 82 mg/dL (60-115); Potassium 3.2 mmol/L (3.3-5.1); Sodium 138 mmol/L (135-145)
[2020-12-19 08:00] VITALS: BP 101/51; PULSE 67; RESP 18; TEMP 36.6; O2SAT 96
[2020-12-19 08:01] LABS: Glucose, Whole Blood 81 mg/dL (60-115)
[2020-12-19] MEDS: Fluticasone Propionate Nasal 16 GM SPRAY 1 SPRAY NOSTRIL-B (09:56)
[2020-12-19] MEDS: Cyanocobalamin (Vitamin B-12) 1,000 MCG TABLET 1000 MCG PO (09:57)
[2020-12-19] MEDS: Furosemide 40 MG TABLET PO (09:58)
[2020-12-19] MEDS: Escitalopram Oxalate 10 MG TABLET PO (09:58)
[2020-12-19] MEDS: Potassium Chloride ER 20 MEQ TAB.ER.PRT 40 MEQ PO (09:58)
[2020-12-19] MEDS: Multivitamin TABLET 1 TAB PO (09:58)
--- NOTE | 2020-12-19 10:38 | HO.PM.IMPN ---
Subjective Subjective Date of Service: 12/19/20 Interval History: notes postop soreness no fever chest discomfort resolved eating well; no N/V/abd pain Physical Exam Vital Signs: Vital Signs: Last Vital Signs Temp 97.9 F 12/19/20 08:00 Pulse 67 12/19/20 08:00 Resp 18 12/19/20 08:00 BP 101/51 L 12/19/20 08:00 Pulse Ox 96 12/19/20 08:00 Body Mass Index 30.9 Gen: in no acute distress, alert and conversant HEENT: sclera anicteric, moist mucus membranes Neck: supple Lungs: clear to auscultation bilaterally Heart: regular rate and rhythm, no murmurs noted Abd: soft, non-tender, non-distended : Jacobs in place. erythema and induration of penis/suprapubic area improved. scrotum with packing and ABD pad with dried blood. Ext: no edema Skin: warm/well-perfused Neuro: alert and oriented x3, no focal findings Psych: appropriate affect Objective Data Current Medications Generic Name Dose Route Start Last Admin Trade Name Freq PRN Reason Stop Dose Admin Acetaminophen 650 mg 12/17/20 17:28 Acetaminophen 325 Mg Tablet PO Q6H PRN Pain, Mild (Pain Scale 1-3) Bisacodyl 10 mg 12/17/20 17:35 Bisacodyl 10 Mg Supp.Rect ND DAILY PRN Constipation Cyanocobalamin 1,000 mcg 12/18/20 09:00 12/19/20 09:57 Cyanocobalamin (Vitamin B-12) 1,000 Mcg Tablet PO 1,000 mcg DAILY ROXANN Administration Docusate Sodium 100 mg 12/17/20 17:28 Docusate Sodium 100 Mg Capsule PO DAILY PRN Constipation Escitalopram Oxalate 10 mg 12/18/20 09:00 12/19/20 09:58 Escitalopram Oxalate 10 Mg Tablet PO 10 mg DAILY ROXANN Administration Fentanyl 25 mcg 12/18/20 18:04 12/18/20 18:48 Fentanyl Citrate/Pf 100 Mcg/2 Ml Vial IVPUSH 25 mcg Q5M PRN Administration Pain, Moderate (Pain Scale 4-6 Fluticasone Propionate 1 spray 12/18/20 09:00 12/19/20 09:56 Fluticasone Propionate Nasal 16 Gm [place] NOSTRIL-B 1 spray DAILY ROXANN Administration Furosemide 40 mg 12/18/20 09:00 12/19/20 09:58 Furosemide 40 Mg Tablet PO 40 mg DAILY ROXANN Administration Protocol Piperacillin Sod/Tazobactam 100 mls @ 200 mls/hr 12/17/20 17:28 12/19/20 07:40 Sod 4.5 gm/ Sodium Chloride IV Infused Q6H ROXANN Infusion Vancomycin HCl 1,250 mg/ 250 mls @ 166.667 mls/hr 12/18/20 13:00 12/18/20 15:57 Sodium Chloride IV Infused Q24H ROXNAN Infusion Insulin Human Lispro 0 unit 12/17/20 17:28 12/19/20 09:56 Insulin Lispro 100 Unit/Ml 3 Ml Vial SUBCUT Not Given QIDACHS [facility] Protocol Magnesium Hydroxide 30 ml 12/17/20 17:35 Milk Of Magnesia 30 Ml Oral.Susp PO BEDTIME PRN Constipation Morphine Sulfate 2 mg 12/17/20 17:28 Morphine Sulfate 4 Mg/Ml Cartridge IVPUSH Q4H PRN Pain, Severe (Pain Scale 7-10) Multivitamins/Vitamin C 1 tab 12/18/20 09:00 12/19/20 09:58 Multivitamin Tablet PO 1 tab DAILY ROXANN Administration Ondansetron HCl 4 mg 12/17/20 17:28 12/18/20 21:20 Ondansetron Hcl 4 Mg/2 Ml Vial IVPUSH 4 mg Q8H PRN Administration Nausea and Vomiting Oxycodone HCl 10 mg 12/17/20 17:35 12/19/20 02:52 Oxycodone Hcl Immed Release 5 Mg Tablet PO 10 mg Q6H PRN Administration Pain Pharmacy Consult 1 each 12/17/20 10:55 Consult Rx Vancomycin Dosing MISCELLANE DAILY PRN Consult order Pharmacy Consult 1 each 12/17/20 15:13 Consult Rx Perform Med Rec MISCELLANE ONCE PRN Consult order Potassium Chloride 20 meq 12/18/20 09:00 12/18/20 09:20 Potassium Chloride Er 20 Meq Tab.Er.Prt PO 20 meq DAILY ROXANN Administration Sodium Chloride 3 ml 12/18/20 00:00 12/19/20 09:58 0.9 % Sodium Chloride Flush 3 Ml Syringe IVFLUSH 3 ml QSHIFT ROXANN Administration Labs CBC & Chem 7: 12/19/20 06:22 12/19/20 06:22 Labs: Laboratory Results - last 24 hr 12/18/20 12/18/20 12/18/20 05:48 05:48 10:04 WBC RBC Hgb Hct MCV MCH MCHC RDW Plt Count MPV Immature Gran % (Auto) Neut % (Auto) Lymph % (Auto) [place] % (Auto) Eos % (Auto) Baso % (Auto) Lymph # (Auto) [place] # (Auto) Eos # (Auto) Baso # (Auto) Abs Immat Gran (auto) Absolute Neuts (auto) Absolute Nucleated RBC Nucleated RBC % (auto) Absolute Retic 0.048 Percent Retic 1.7 Immature Retic Fraction 25.9 H Retic Hgb Equivalent 28.6 L Sodium Potassium Chloride Carbon Dioxide Anion Gap BUN Creatinine Estim Creat Clear Calc Estimated GFR POC Glucose Random Glucose Calcium Magnesium Iron 14 L TIBC 176 L % Saturation 8 L Unsat Iron Binding 162 Ferritin 205 Troponin I High Sens 4.2 C-Reactive Protein 12/18/20 12/18/20 12/18/20 11:37 14:20 16:28 WBC RBC Hgb Hct MCV MCH MCHC RDW Plt Count MPV Immature Gran % (Auto) Neut % (Auto) Lymph % (Auto) [place] % (Auto) Eos % (Auto) Baso % (Auto) Lymph # (Auto) [place] # (Auto) Eos # (Auto) Baso # (Auto) Abs Immat Gran (auto) Absolute Neuts (auto) Absolute Nucleated RBC Nucleated RBC % (auto) Absolute Retic Percent Retic Immature Retic Fraction Retic Hgb Equivalent Sodium Potassium Chloride Carbon Dioxide Anion Gap BUN Creatinine Estim Creat Clear Calc Estimated GFR POC Glucose 95 103 Random Glucose Calcium Magnesium Iron TIBC % Saturation Unsat Iron Binding Ferritin Troponin I High Sens 4.7 C-Reactive Protein 12/18/20 12/19/20 12/19/20 20:25 06:22 06:22 WBC 10.2 RBC 2.75 L Hgb 8.0 L Hct 25.3 L MCV 92.0 MCH 29.1 MCHC 31.6 RDW 16.0 Plt Count 275 MPV 8.8 L Immature Gran % (Auto) 0.5 H Neut % (Auto) 77.4 H Lymph % (Auto) 11.9 L [place] % (Auto) 9.0 Eos % (Auto) 1.0 Baso % (Auto) 0.2 Lymph # (Auto) 1.2 [place] # (Auto) 0.9 Eos # (Auto) 0.1 Baso # (Auto) 0.0 Abs Immat Gran (auto) 0.05 H Absolute Neuts (auto) 7.9 Absolute Nucleated RBC 0.000 Nucleated RBC % (auto) 0.0 Absolute Retic Percent Retic Immature Retic Fraction Retic Hgb Equivalent Sodium 138 Potassium 3.2 L Chloride 96 Carbon Dioxide 33 H Anion Gap 12 BUN 20 H Creatinine 1.42 H Estim Creat Clear Calc 57.2 Estimated GFR 48 POC Glucose 121 H Random Glucose 82 Calcium 7.8 L Magnesium 2.0 Iron TIBC % Saturation Unsat Iron Binding Ferritin Troponin I High Sens C-Reactive Protein 16.99 H 12/19/20 07:15 WBC RBC Hgb Hct MCV MCH MCHC RDW Plt Count MPV Immature Gran % (Auto) Neut % (Auto) Lymph % (Auto) [place] % (Auto) Eos % (Auto) Baso % (Auto) Lymph # (Auto) [place] # (Auto) Eos # (Auto) Baso # (Auto) Abs Immat Gran (auto) Absolute Neuts (auto) Absolute Nucleated RBC Nucleated RBC % (auto) Absolute Retic Percent Retic Immature Retic Fraction Retic Hgb Equivalent Sodium Potassium Chloride Carbon Dioxide Anion Gap BUN Creatinine Estim Creat Clear Calc Estimated GFR POC Glucose 81 Random Glucose Calcium Magnesium Iron TIBC % Saturation Unsat Iron Binding Ferritin Troponin I High Sens C-Reactive Protein Microbiology Microbiology Results: Microbiology 12/18/20 Unknown Scrotum Gram Stain - Final 12/18/20 Unknown Scrotum Routine Culture - Preliminary No growth to date. 12/17/20 Unknown Urine [place] Urine Culture - Final Escherichia coli 12/17/20 11:07 Blood - Venous Blood Culture - Preliminary No growth after 24 hours. 12/17/20 11:06 Blood - Venous Blood Culture - Preliminary No growth after 24 hours. Assessment and Plan (1) Abscess of penis: Status: Acute (2) Cellulitis of scrotum: Status: Acute (3) Atypical chest pain: Status: Acute Assessment and Plan: hospital d#3 80yo M resident of [facility] with PMHx DM2, AF on apixaban, CHF admitted for worsening scrotal/penile cellulitis, failed outpatient antibiotics and developed penile abscess # penile abscess # scrotal cellulitis - no evidence of Medina's gangrene - POD #[address] I[address] Bradshaw (Urology) - vancomycin + piperacillin/tazobactam d#3, ID consult pending # JAZLYN, mild - hold furosemide, recheck BMP tomorrow # hypoK - replete, recheck BMP tomorrow # atypical chest pain - resolved, was likely gastritis # JOSE - replete Fe. already on B12 # AF - resume apixaban # CHF - not decompensated. hold furosemide as above # DM2, A1c 6.1 - correction-dose lispro # depression - continue escitalopram # VTE ppx - apixaban # dispo - eventual return to [facility]
[2020-12-19 11:43] LABS: Glucose, Whole Blood 113 mg/dL (60-115)
[2020-12-19] MEDS: Ferrous Sulfate 324 MG TABLET.DR PO (12:15)
[2020-12-19] MEDS: vancomycin HCL 1,250 MG in 0.9 % Sodium Chloride 250 ML 166.67 MG IV (13:27)
[2020-12-19 15:05] VITALS: BP 100/49; PULSE 65; RESP 16; TEMP 36.3; O2SAT 94
--- NOTE | 2020-12-19 15:29 | PC.NURSE ---
1400 Scrotal and penis remain swollen. ABD dsg on scrotum saturated old blood. reinforced in AM. No new bleeding noted.
[2020-12-19 16:15] LABS: Glucose, Whole Blood 127 mg/dL (60-115)
[2020-12-19 20:27] LABS: Glucose, Whole Blood 144 mg/dL (60-115)
--- NOTE | 2020-12-19 21:44 | W.PM.IDCN ---
History of Present Illness Data of Consult Service Date: 12/18/20 Requesting physician: Jeffrey Platt Primary Care Provider: Shon Brown MD [facility] Reason for consult: penile abscess He presents from [facility] with penile swelling and pain He has 4x6x7 cm penile abscess and is getting drained by Dr Bradshaw He has no fever or chills He has had symptoms for a week He has diarrhea as well Review of Systems Review of Systems: Yes all other systems are reviewed and are negative PMFSH Past Medical History Medical History (Updated 12/25/20 @ 11:30 by Kareem Purcell MD) Atrial fibrillation Benign prostate hyperplasia C. difficile colitis CHF (congestive heart failure) CKD (chronic kidney disease) stage 3, GFR 30-59 ml/min Hypertension Left bundle branch block Osteoarthritis Spinal stenosis Type 2 diabetes mellitus Urine retention Family History Family History Other No family history of cardiovascular disease Family history: reviewed and not pertinent Surgical History Surgical History H/O spinal fusion History of ligation of vein Social History Social History Household Members: None Housing: [facility] Alcohol intake: never Smoking Status: Unknown if ever smoked Advance Directives Date on File: 12/17/20 service: Yes Current occupational status: retired Meds Allergies Allergy/AdvReac Type Severity Reaction Status Date / Time Morphine AdvReac Intermediate vomiting Uncoded 12/17/20 10:43 Active Medications: Current Medications Generic Name Dose Route Start Last Admin Trade Name Freq PRN Reason Stop Dose Admin Acetaminophen 650 mg 12/17/20 17:28 Acetaminophen 325 Mg Tablet PO Q6H PRN Pain, Mild (Pain Scale 1-3) Bisacodyl 10 mg 12/17/20 17:35 Bisacodyl 10 Mg Supp.Rect SD DAILY PRN Constipation Cyanocobalamin 1,000 mcg 12/18/20 09:00 12/19/20 09:57 Cyanocobalamin (Vitamin B-12) 1,000 Mcg Tablet PO 1,000 mcg DAILY ROXANN Administration Docusate Sodium 100 mg 12/17/20 17:28 Docusate Sodium 100 Mg Capsule PO DAILY PRN Constipation Escitalopram Oxalate 10 mg 12/18/20 09:00 12/19/20 09:58 Escitalopram Oxalate 10 Mg Tablet PO 10 mg DAILY ROXANN Administration Fentanyl 25 mcg 12/18/20 18:04 12/18/20 18:48 Fentanyl Citrate/Pf 100 Mcg/2 Ml Vial IVPUSH 25 mcg Q5M PRN Administration Pain, Moderate (Pain Scale 4-6 Ferrous Sulfate 324 mg 12/19/20 10:45 12/19/20 12:15 Ferrous Sulfate 324 Mg Tablet. PO 324 mg Q48H ROXANN Administration Fluticasone Propionate 1 spray 12/18/20 09:00 12/19/20 09:56 Fluticasone Propionate Nasal 16 Gm [place] NOSTRIL-B 1 spray DAILY ROXANN Administration Piperacillin Sod/Tazobactam 100 mls @ 200 mls/hr 12/17/20 17:28 12/19/20 17:00 Sod 4.5 gm/ Sodium Chloride IV Infused Q6H [facility] Infusion Vancomycin HCl 1,250 mg/ 250 mls @ 166.667 mls/hr 12/18/20 13:00 12/19/20 15:50 Sodium Chloride IV Infused Q24H [facility] Infusion Insulin Human Lispro 0 unit 12/17/20 17:28 12/19/20 21:22 Insulin Lispro 100 Unit/Ml 3 Ml Vial SUBCUT Not Given QIDACHS [facility] Protocol Magnesium Hydroxide 30 ml 12/17/20 17:35 Milk Of Magnesia 30 Ml Oral.Susp PO BEDTIME PRN Constipation Morphine Sulfate 2 mg 12/17/20 17:28 Morphine Sulfate 4 Mg/Ml Cartridge IVPUSH Q4H PRN Pain, Severe (Pain Scale 7-10) Multivitamins/Vitamin C 1 tab 12/18/20 09:00 12/19/20 09:58 Multivitamin Tablet PO 1 tab DAILY ROXANN Administration Ondansetron HCl 4 mg 12/17/20 17:28 12/18/20 21:20 Ondansetron Hcl 4 Mg/2 Ml Vial IVPUSH 4 mg Q8H PRN Administration Nausea and Vomiting Oxycodone HCl 10 mg 12/17/20 17:35 12/19/20 16:37 Oxycodone Hcl Immed Release 5 Mg Tablet PO 10 mg Q6H PRN Administration Pain Pharmacy Consult 1 each 12/17/20 10:55 Consult Rx Vancomycin Dosing MISCELLANE DAILY PRN Consult order Pharmacy Consult 1 each 12/17/20 15:13 Consult Rx Perform Med Rec MISCELLANE ONCE PRN Consult order Potassium Chloride 20 meq 12/18/20 09:00 12/19/20 11:06 Potassium Chloride Er 20 Meq Tab.Er.Prt PO Not Given DAILY ROXANN Sodium Chloride 3 ml 12/18/20 00:00 12/19/20 16:29 0.9 % Sodium Chloride Flush 3 Ml Syringe IVFLUSH 3 ml QSHIFT [facility] Administration Home Medications Medication Instructions Recorded Confirmed Last Taken Type [place] Enema 118 ml [place] DAILY PRN 12/17/20 12/17/20 Unknown History acetaminophen 650 mg PO Q4H PRN 12/17/20 12/17/20 12/17/20 History apixaban 5 mg PO BID 12/17/20 12/17/20 12/17/20 History 1 bisacodyl 10 mg SD DAILY PRN 12/17/20 12/17/20 12/05/20 History cyanocobalamin (vitamin B-12) 1,000 mcg PO DAILY 12/17/20 12/17/20 12/17/20 History escitalopram oxalate 10 mg PO DAILY 12/17/20 12/17/20 12/17/20 History fluticasone propionate 1 spray INTRANASAL DAILY 12/17/20 12/17/20 12/17/20 History furosemide 40 mg PO DAILY 12/17/20 12/17/20 12/17/20 History loperamide 2 mg PO Q3H PRN 12/17/20 12/17/20 12/10/20 History magnesium hydroxide [Milk of 30 ml PO BEDTIME PRN 12/17/20 12/17/20 12/04/20 History Magnesia] multivitamin 1 tab PO DAILY 12/17/20 12/17/20 12/17/20 History oxycodone 10 mg PO BID 12/17/20 12/17/20 12/17/20 History oxycodone 10 mg PO Q6H PRN 12/17/20 12/17/20 Unknown History potassium chloride 20 meq PO DAILY 12/17/20 12/17/20 12/17/20 History Physical Exam Vital Signs: Vital Signs: Last Vital Signs Temp 97.4 F 12/19/20 15:05 Pulse 65 12/19/20 15:05 Resp 16 12/19/20 15:05 BP 100/49 L 12/19/20 15:05 Pulse Ox 94 12/19/20 15:05 Body Mass Index 30.9 Const: General: cooperative HENMT: Head: Yes normal to inspection Resp: Effort & Inspection: normal respiratory effort Cardio: Rate: regular rate Rhythm: regular rhythm GI: Palpation (GI): Soft to palpation and nontender : General: Yes no CVA tenderness Penis: erythematous and mass Male genitals images: 1. swelling,erythema,firmness Back/Spine/Pelvis: Back: no CVA tenderness Skin: General skin exam: no rashes or lesions noted Results Labs CBC & Chem 7: 12/25/20 07:09 12/27/20 08:00 Labs: Short CBC 12/19/20 Range/Units 06:22 WBC 10.2 (4.8-10.8) X10*3/uL Hgb 8.0 L (14.0-18.0) g/dl Hct 25.3 L (42-52) % Plt Count 275 (160-400) X10*3/uL BMP 12/19/20 06:22 Sodium 138 Potassium 3.2 L Chloride 96 Carbon Dioxide 33 H BUN 20 H Creatinine 1.42 H Calcium 7.8 L Microbiology Microbiology Results: Microbiology 12/17/20 11:07 Blood - Venous Blood Culture - Preliminary No growth after 48 hours. 12/17/20 11:06 Blood - Venous Blood Culture - Preliminary No growth after 48 hours. 12/18/20 Unknown Scrotum Gram Stain - Final 12/18/20 Unknown Scrotum Routine Culture - Preliminary No growth to date. 12/17/20 Unknown Urine [place] Urine Culture - Final Escherichia coli Assessment and Plan (1) Abscess of penis: Status: Acute Would continue current Vancomycin and Zosyn until final identification from drainage at Surgery (2) Cellulitis of scrotum: Status: Acute
[2020-12-20] VITALS: BP 105/54; PULSE 63; RESP 18; TEMP 37; O2SAT 95
[2020-12-20] MEDS: oxyCODONE HCl Immed Release 5 MG TABLET 10 MG PO ×2 (04:31→12:47)
[2020-12-20 04:36] LABS: Folate 12.6 ng/mL (> or = 4.0); Vitamin B12 1186 pg/mL (200-900)
[2020-12-20] MEDS: Piperacillin Sodium/Tazobactam 4.5 GM in 0.9 % Sodium Chloride 100 ML IV ×4 (05:15→22:51)
[2020-12-20 05:53] LABS: MANUAL DIFF FLAG NO
[2020-12-20 05:58] LABS: Basophils Percent Auto 0.4 % (0-2); Eosinophils Absolute Auto 0.3 X10*3/uL (0.0-0.4); Eosinophils Percent Auto 4.2 % (0-4); Hemoglobin 7.7 g/dl (14.0-18.0); Imm Gran Abs Auto 0.03 X10*3/uL (0.00-0.03); Imm Gran Pct Auto 0.4 % (0.0-0.4); Lymphocytes Absolute Auto 1.1 X10*3/uL (1.2-4.9); Lymphocytes Percent Auto 15.9 % (20-40); Mean Corpuscular HGB Conc 30.8 g/dl (31.0-36.0); Mean Corpuscular Hemoglobin 28.5 pg (27.0-33.0); Mean Corpuscular Volume 92.6 fL (80-98); Mean Platelet Volume 8.8 fL (9.4-12.4); Monocytes Absolute Auto 0.6 X10*3/uL (0.1-1.2); Neutrophils Absolute Auto 4.8 X10*3/uL (2.0-8.3); Neutrophils Percent Auto 70.1 % (45-73); Platelet Count 277 X10*3/uL (160-400); Red Cell Distribution Width 16.2 % (11.0-16.0); White Blood Count 6.9 X10*3/uL (4.8-10.8)
[2020-12-20 06:16] LABS: Anion Gap 12 (12-20); Blood Urea Nitrogen 21 mg/dL (9-16); Calcium 7.7 mg/dL (8.4-10.2); Carbon Dioxide 32 mmol/L (22-29); Chloride 98 mmol/L (96-108); Creatinine Clr Calc Pharmacy 59.3; Estimated Glomerular Filt Rate 50; Glucose Random 97 mg/dL (60-115); Potassium 3.4 mmol/L (3.3-5.1); Sodium 139 mmol/L (135-145)
[2020-12-20 07:29] VITALS: BP 112/51; PULSE 64; RESP 18; TEMP 36.7; O2SAT 96
[2020-12-20 07:43] LABS: Glucose, Whole Blood 82 mg/dL (60-115)
[2020-12-20] MEDS: Multivitamin TABLET 1 TAB PO (08:52)
[2020-12-20] MEDS: Cyanocobalamin (Vitamin B-12) 1,000 MCG TABLET 1000 MCG PO (08:52)
[2020-12-20] MEDS: Fluticasone Propionate Nasal 16 GM SPRAY 1 SPRAY NOSTRIL-B (08:52)
[2020-12-20] MEDS: Potassium Chloride ER 20 MEQ TAB.ER.PRT PO (08:52)
[2020-12-20] MEDS: Escitalopram Oxalate 10 MG TABLET PO (08:52)
[2020-12-20] MEDS: Acetaminophen 325 MG TABLET 650 MG PO (08:55)
[2020-12-20] MEDS: 0.9 % Sodium Chloride Flush 3 ML SYRINGE IVFLUSH ×3 (08:56→23:39)
--- NOTE | 2020-12-20 10:16 | P.CNUR_ITS ---
History of Present Illness Consult details Consult date: 12/20/20 Narrative: Seen today Pain is resolved to some degree in scrotal area Packing change to occur tomorrow White count has improved PMFSH Past Medical History Medical History Atrial fibrillation Benign prostate hyperplasia CHF (congestive heart failure) CKD (chronic kidney disease) stage 3, GFR 30-59 ml/min Hypertension Left bundle branch block Osteoarthritis Spinal stenosis Type 2 diabetes mellitus Urine retention Family History Family History Other No family history of cardiovascular disease Family history: reviewed and not pertinent Surgical History Surgical History H/O spinal fusion History of ligation of vein Social History Social History Household Members: None Housing: Custodial Do you presently have visiting nurse or other home services: No Unable to assess alcohol history related to: Unknown Alcohol intake: never Smoking Status: Unknown if ever smoked Smoked in Last 30 Days: No Use of substances other than those prescribed or required for medical reasons: Unknown Currently Displaying Signs/Symptoms of Drug Intoxication Withdrawal: No Advance Directives: Yes Advance Directives on File: Yes Advance Directives Date on File: 12/17/20 Do you have thoughts of harming others: None Do you have a plan to hurt others: No Plan Recently lost weight without trying: Unsure service: Yes Current occupational status: retired Meds Allergies Allergy/AdvReac Type Severity Reaction Status Date / Time Morphine AdvReac Intermediate vomiting Uncoded 12/17/20 10:43 Active Medications: Current Medications Generic Name Dose Route Start Last Admin Trade Name Freq PRN Reason Stop Dose Admin Acetaminophen 650 mg 12/17/20 17:28 12/20/20 08:55 Acetaminophen 325 Mg Tablet PO 650 mg Q6H PRN Administration Pain, Mild (Pain Scale 1-3) Bisacodyl 10 mg 12/17/20 17:35 Bisacodyl 10 Mg Supp.Rect [place] DAILY PRN Constipation Cyanocobalamin 1,000 mcg 12/18/20 09:00 12/20/20 08:52 Cyanocobalamin (Vitamin B-12) 1,000 Mcg Tablet PO 1,000 mcg DAILY ROXANN Administration Docusate Sodium 100 mg 12/17/20 17:28 Docusate Sodium 100 Mg Capsule PO DAILY PRN Constipation Escitalopram Oxalate 10 mg 12/18/20 09:00 12/20/20 08:52 Escitalopram Oxalate 10 Mg Tablet PO 10 mg DAILY ROXANN Administration Fentanyl 25 mcg 12/18/20 18:04 12/18/20 18:48 Fentanyl Citrate/Pf 100 Mcg/2 Ml Vial IVPUSH 25 mcg Q5M PRN Administration Pain, Moderate (Pain Scale 4-6 Ferrous Sulfate 324 mg 12/19/20 10:45 12/19/20 12:15 Ferrous Sulfate 324 Mg Tablet.Dr PO 324 mg Q48H ROXANN Administration Fluticasone Propionate 1 spray 12/18/20 09:00 12/20/20 08:52 Fluticasone Propionate Nasal 16 Gm [place] NOSTRIL-B 1 spray DAILY ROXANN Administration Piperacillin Sod/Tazobactam 100 mls @ 200 mls/hr 12/17/20 17:28 12/20/20 06:48 Sod 4.5 gm/ Sodium Chloride IV Infused Q6H [facility] Infusion Vancomycin HCl 1,250 mg/ 250 mls @ 166.667 mls/hr 12/18/20 13:00 12/19/20 15:50 Sodium Chloride IV Infused Q24H [facility] Infusion Insulin Human Lispro 0 unit 12/17/20 17:28 12/20/20 08:47 Insulin Lispro 100 Unit/Ml 3 Ml Vial SUBCUT Not Given QIDACHS [facility] Protocol Magnesium Hydroxide 30 ml 12/17/20 17:35 Milk Of Magnesia 30 Ml Oral.Susp PO BEDTIME PRN Constipation Morphine Sulfate 2 mg 12/17/20 17:28 Morphine Sulfate 4 Mg/Ml Cartridge IVPUSH Q4H PRN Pain, Severe (Pain Scale 7-10) Multivitamins/Vitamin C 1 tab 12/18/20 09:00 12/20/20 08:52 Multivitamin Tablet PO 1 tab DAILY ROXANN Administration Ondansetron HCl 4 mg 12/17/20 17:28 12/18/20 21:20 Ondansetron Hcl 4 Mg/2 Ml Vial IVPUSH 4 mg Q8H PRN Administration Nausea and Vomiting Oxycodone HCl 10 mg 12/17/20 17:35 12/20/20 04:31 Oxycodone Hcl Immed Release 5 Mg Tablet PO 10 mg Q6H PRN Administration Pain Pharmacy Consult 1 each 12/17/20 10:55 Consult Rx Vancomycin Dosing MISCELLANE DAILY PRN Consult order Pharmacy Consult 1 each 12/17/20 15:13 Consult Rx Perform Med Rec MISCELLANE ONCE PRN Consult order Potassium Chloride 20 meq 12/18/20 09:00 12/20/20 08:52 Potassium Chloride Er 20 Meq Tab.Er.Prt PO 20 meq DAILY ROXANN Administration Sodium Chloride 3 ml 12/18/20 00:00 12/20/20 08:56 0.9 % Sodium Chloride Flush 3 Ml Syringe IVFLUSH 3 ml QSHIFT ROXANN Administration Home Medications Medication Instructions Recorded Confirmed Last Taken Type acetaminophen 650 mg PO Q4H PRN 12/17/20 12/17/20 12/17/20 History apixaban 5 mg PO BID 12/17/20 12/17/20 12/17/20 History 1 bisacodyl 10 mg [place] DAILY PRN 12/17/20 12/17/20 12/05/20 History ceftriaxone 1 g IM DAILY 12/17/20 12/17/20 12/17/20 History cyanocobalamin (vitamin B-12) 1,000 mcg PO DAILY 12/17/20 12/17/20 12/17/20 History escitalopram oxalate 10 mg PO DAILY 12/17/20 12/17/20 12/17/20 History fluticasone propionate 1 spray INTRANASAL DAILY 12/17/20 12/17/20 12/17/20 History furosemide 40 mg PO DAILY 12/17/20 12/17/20 12/17/20 History loperamide 2 mg PO Q3H PRN 12/17/20 12/17/20 12/10/20 History magnesium hydroxide [Milk of 30 ml PO BEDTIME PRN 12/17/20 12/17/20 12/04/20 History Magnesia] multivitamin 1 tab PO DAILY 12/17/20 12/17/20 12/17/20 History oxycodone 10 mg PO BID 12/17/20 12/17/20 12/17/20 History oxycodone 10 mg PO Q6H PRN 12/17/20 12/17/20 Unknown History potassium chloride 20 meq PO DAILY 12/17/20 12/17/20 12/17/20 History sodium phosphates [Fleet Enema] 118 ml [place] DAILY PRN 12/17/20 12/17/20 Unknown History Physical Exam Vital Signs: Vital Signs: Last Vital Signs Temp 98.1 F 12/20/20 07:29 Pulse 64 12/20/20 07:29 Resp 18 12/20/20 07:29 BP 112/51 L 12/20/20 07:29 Pulse Ox 96 12/20/20 07:29 Body Mass Index 30.9 Const: General: cooperative, healthy appearing, comfortable and no acute distress Nutritional Appearance: average body habitus Orientation/c onsciousness: oriented to person, oriented to place and oriented to time Eyes: General: appearance normal, both eyes and all related structures Chest: Chest palpation & inspection: normal inspection of the chest Resp: Effort & Inspection: normal respiratory effort Cardio: Rate: regular rate GI: Inspection: Yes normal to inspection Skin: Hair: normal Neuro: General: oriented to person, oriented to place and oriented to time Extrem: General: Yes normal to inspection Results Labs Result diagrams: 12/20/20 05:44 12/20/20 05:43 Labs: Abnormal lab results 12/18/20 12/19/20 12/19/20 Range/Units 05:48 16:08 20:22 RBC (4.60-5.80) X10*6/uL Hgb (14.0-18.0) g/dl Hct (42-52) % MCHC (31.0-36.0) g/dl RDW (11.0-16.0) % MPV (9.4-12.4) fL Lymph % (Auto) (20-40) % Eos % (Auto) (0-4) % Lymph # (Auto) (1.2-4.9) X10*3/uL Carbon Dioxide (22-29) mmol/L BUN (9-16) mg/dL POC Glucose 127 H 144 H (60-115) mg/dL Calcium (8.4-10.2) mg/dL Vitamin B12 1186 H (200-900) pg/mL 12/20/20 12/20/20 Range/Units 05:43 05:44 RBC 2.70 L (4.60-5.80) X10*6/uL Hgb 7.7 L (14.0-18.0) g/dl Hct 25.0 L (42-52) % MCHC 30.8 L (31.0-36.0) g/dl RDW 16.2 H (11.0-16.0) % MPV 8.8 L (9.4-12.4) fL Lymph % (Auto) 15.9 L (20-40) % Eos % (Auto) 4.2 H (0-4) % Lymph # (Auto) 1.1 L (1.2-4.9) X10*3/uL Carbon Dioxide 32 H (22-29) mmol/L BUN 21 H (9-16) mg/dL POC Glucose (60-115) mg/dL Calcium 7.7 L (8.4-10.2) mg/dL Vitamin B12 (200-900) pg/mL Short CBC 12/20/20 Range/Units 05:44 WBC 6.9 (4.8-10.8) X10*3/uL Hgb 7.7 L (14.0-18.0) g/dl Hct 25.0 L (42-52) % Plt Count 277 (160-400) X10*3/uL BMP 12/20/20 05:43 Sodium 139 Potassium 3.4 Chloride 98 Carbon Dioxide 32 H BUN 21 H Creatinine 1.37 Calcium 7.7 L Urine 12/17/20 Range/Units 13:32 Urine Color YELLOW Urine Appearance HAZY Urine pH 6.0 (5.0-8.0) Ur Specific [place] 1.010 (1.005-1.025) Urine Protein TRACE (NEG-TRACE) MG/DL Urine Glucose (UA) NEG (NEG) MG/DL All other labs normal. Assessment and Plan (1) Scrotal abscess: Status: Acute Abcess drained and packed Packing to change tomorrow
[2020-12-20 11:27] LABS: Glucose, Whole Blood 123 mg/dL (60-115)
--- NOTE | 2020-12-20 11:52 | HO.POSTANES ---
Post Anesthesia Evaluation Post Anesthesia Evaluation Vital Signs: Vital Signs Temp Pulse Resp BP Pulse Ox 12/20/20 07:29 98.1 F 64 18 112/51 L 96 12/20/20 00:00 98.6 F 63 18 105/54 L 95 Anesthesia: General Mental Status: Awake Pain Control: Satisfactory Nausea/Vomiting: None Hydration: Adequate Anesthesia-Related Issues: No Anes. Related Issues
--- NOTE | 2020-12-20 12:36 | HO.PM.IMPN ---
Subjective Subjective Date of Service: 12/20/20 Interval History: The patient was seen and evaluated this morning Laying in bed, feels comfortable Denies any fever, chills or shortness of breath Wound area little bit painful, no drainage No reported other overnight events. Systemic review: No fever, chills or weakness No chest pain, palpitation No shortness of breath or coughing No abdominal pain, nausea or vomiting No urinary symptoms No any rash or wounds Physical Exam Vital Signs: Vital Signs: Last Vital Signs Temp 98.1 F 12/20/20 07:29 Pulse 64 12/20/20 07:29 Resp 18 12/20/20 07:29 BP 112/51 L 12/20/20 07:29 Pulse Ox 96 12/20/20 07:29 Body Mass Index 30.9 Const: Other: Constitutional : Alert,, not in distress Neck : Normal inspection, Supple Cardiovascular : RRR, S1 S2, no lower extremity edema Respiratory : Good bilateral air entry, no crackles, wheezes or rhonchi Gastrointestinal: soft, lax, Normal bowel sounds, Non tender Skin : Warm/Dry, No rash Genitourinary: Jacobs in place. erythema and induration of penis/suprapubic area improved. scrotum with packing Neurological : Alert & oriented , No focal deficit Objective Data Current Medications Generic Name Dose Route Start Last Admin Trade Name Freq PRN Reason Stop Dose Admin Acetaminophen 650 mg 12/17/20 17:28 12/20/20 08:55 Acetaminophen 325 Mg Tablet PO 650 mg Q6H PRN Administration Pain, Mild (Pain Scale 1-3) Bisacodyl 10 mg 12/17/20 17:35 Bisacodyl 10 Mg Supp.Rect [place] DAILY PRN Constipation Cyanocobalamin 1,000 mcg 12/18/20 09:00 12/20/20 08:52 Cyanocobalamin (Vitamin B-12) 1,000 Mcg Tablet PO 1,000 mcg DAILY ROXANN Administration Docusate Sodium 100 mg 12/17/20 17:28 Docusate Sodium 100 Mg Capsule PO DAILY PRN Constipation Escitalopram Oxalate 10 mg 12/18/20 09:00 12/20/20 08:52 Escitalopram Oxalate 10 Mg Tablet PO 10 mg DAILY ROXANN Administration Fentanyl 25 mcg 12/18/20 18:04 12/18/20 18:48 Fentanyl Citrate/Pf 100 Mcg/2 Ml Vial IVPUSH 25 mcg Q5M PRN Administration Pain, Moderate (Pain Scale 4-6 Ferrous Sulfate 324 mg 12/19/20 10:45 12/19/20 12:15 Ferrous Sulfate 324 Mg Tablet.Dr PO 324 mg Q48H ROXANN Administration Fluticasone Propionate 1 spray 12/18/20 09:00 12/20/20 08:52 Fluticasone Propionate Nasal 16 Gm [place] NOSTRIL-B 1 spray DAILY ROXANN Administration Piperacillin Sod/Tazobactam 100 mls @ 200 mls/hr 12/17/20 17:28 12/20/20 12:35 Sod 4.5 gm/ Sodium Chloride IV Infused Q6H [facility] Infusion Vancomycin HCl 1,250 mg/ 250 mls @ 166.667 mls/hr 12/18/20 13:00 12/19/20 15:50 Sodium Chloride IV Infused Q24H [facility] Infusion Insulin Human Lispro 0 unit 12/17/20 17:28 12/20/20 11:28 Insulin Lispro 100 Unit/Ml 3 Ml Vial SUBCUT Not Given QIDACHS [facility] Protocol Magnesium Hydroxide 30 ml 12/17/20 17:35 Milk Of Magnesia 30 Ml Oral.Susp PO BEDTIME PRN Constipation Morphine Sulfate 2 mg 12/17/20 17:28 Morphine Sulfate 4 Mg/Ml Cartridge IVPUSH Q4H PRN Pain, Severe (Pain Scale 7-10) Multivitamins/Vitamin C 1 tab 12/18/20 09:00 12/20/20 08:52 Multivitamin Tablet PO 1 tab DAILY ROXANN Administration Ondansetron HCl 4 mg 12/17/20 17:28 12/18/20 21:20 Ondansetron Hcl 4 Mg/2 Ml Vial IVPUSH 4 mg Q8H PRN Administration Nausea and Vomiting Oxycodone HCl 10 mg 12/17/20 17:35 12/20/20 04:31 Oxycodone Hcl Immed Release 5 Mg Tablet PO 10 mg Q6H PRN Administration Pain Pharmacy Consult 1 each 12/17/20 10:55 Consult Rx Vancomycin Dosing MISCELLANE DAILY PRN Consult order Pharmacy Consult 1 each 12/17/20 15:13 Consult Rx Perform Med Rec MISCELLANE ONCE PRN Consult order Potassium Chloride 20 meq 12/18/20 09:00 12/20/20 08:52 Potassium Chloride Er 20 Meq Tab.Er.Prt PO 20 meq DAILY ROXANN Administration Sodium Chloride 3 ml 12/18/20 00:00 12/20/20 08:56 0.9 % Sodium Chloride Flush 3 Ml Syringe IVFLUSH 3 ml QSHIFT ROXANN Administration Labs CBC & Chem 7: 12/20/20 05:44 12/20/20 05:43 Microbiology Microbiology Results: Microbiology 12/18/20 Unknown Scrotum Gram Stain - Final 12/18/20 Unknown Scrotum Routine Culture - Preliminary No growth to date. 12/17/20 11:07 Blood - Venous Blood Culture - Preliminary No growth after 48 hours. 12/17/20 11:06 Blood - Venous Blood Culture - Preliminary No growth after 48 hours. 12/17/20 Unknown Urine [place] Urine Culture - Final Escherichia coli Assessment and Plan (1) Abscess of penis: Status: Acute (2) Cellulitis of scrotum: Status: Acute (3) Atypical chest pain: Status: Acute Assessment and Plan: hospital d#4 80yo M resident of [facility] with PMHx DM2, AF on apixaban, CHF admitted for worsening scrotal/penile cellulitis, failed outpatient antibiotics and developed penile abscess # penile abscess # scrotal cellulitis no evidence of Medina's gangrene POD #2 I+D by Dr Bradshaw (Urology) vancomycin + piperacillin/tazobactam d#3, ID consult pending # UTI Cx E.Coi continue Abx # JAZLYN, mild Improving hold furosemide, recheck BMP tomorrow # Acute on chronic anemia minimal blood loss reported with hematuria Hb 7.7 today Hold on Trx, monitor H&H # hypoK replete, recheck BMP tomorrow # atypical chest pain resolved, was likely gastritis # JOSE replete Fe. already on B12 # AF resume apixaban # CHF not decompensated. hold furosemide as above # DM2, A1c 6.1 correction-dose lispro # depression continue escitalopram # VTE ppx apixaban # dispo - eventual return to [facility]
[2020-12-20] MEDS: vancomycin HCL 1,250 MG in 0.9 % Sodium Chloride 250 ML 166 MG IV (12:47)
[2020-12-20 13:50] LABS: Vancomycin Trough 22.5 mcg/mL (10.0-20.0)
[2020-12-20 14:39] VITALS: BMI 30.9
[2020-12-20 15:39] VITALS: BP 98/54; PULSE 73; RESP 12; TEMP 36.6; O2SAT 95
[2020-12-20 16:18] LABS: Glucose, Whole Blood 118 mg/dL (60-115)
[2020-12-20 18:00] VITALS: O2SAT 95
[2020-12-20 19:20] VITALS: BP 112/56; PULSE 63; RESP 19; TEMP 36.4; O2SAT 94
[2020-12-20 20:40] LABS: Glucose, Whole Blood 138 mg/dL (60-115)
[2020-12-20 23:34] VITALS: BP 104/48; PULSE 74; RESP 18; TEMP 36.6; O2SAT 98
[2020-12-21] MEDS: Piperacillin Sodium/Tazobactam 4.5 GM in 0.9 % Sodium Chloride 100 ML IV ×3 (05:39→16:31)
[2020-12-21 06:51] LABS: Hematocrit 27.9 % (42-52); Hemoglobin 8.5 g/dl (14.0-18.0); Mean Corpuscular HGB Conc 30.5 g/dl (31.0-36.0); Mean Corpuscular Hemoglobin 28.7 pg (27.0-33.0); Mean Corpuscular Volume 94.3 fL (80-98); Platelet Count 310 X10*3/uL (160-400); Red Blood Count 2.96 X10*6/uL (4.60-5.80); Red Cell Distribution Width 16.2 % (11.0-16.0); White Blood Count 10.4 X10*3/uL (4.8-10.8)
[2020-12-21 07:10] LABS: Anion Gap 14 (12-20); Blood Urea Nitrogen 19 mg/dL (9-16); Calcium 8.1 mg/dL (8.4-10.2); Carbon Dioxide 31 mmol/L (22-29); Chloride 102 mmol/L (96-108); Creatinine Clr Calc Pharmacy 62.9; Estimated Glomerular Filt Rate 53; Glucose Random 95 mg/dL (60-115); Potassium 3.9 mmol/L (3.3-5.1); Sodium 143 mmol/L (135-145)
[2020-12-21 07:26] VITALS: BP 117/55; PULSE 66; RESP 17; TEMP 37.4; O2SAT 95
[2020-12-21] MEDS: oxyCODONE HCl Immed Release 5 MG TABLET 10 MG PO (09:03)
[2020-12-21] MEDS: Escitalopram Oxalate 10 MG TABLET PO (09:04)
[2020-12-21] MEDS: Cyanocobalamin (Vitamin B-12) 1,000 MCG TABLET 1000 MCG PO (09:04)
[2020-12-21] MEDS: Multivitamin TABLET 1 TAB PO (09:05)
[2020-12-21] MEDS: Fluticasone Propionate Nasal 16 GM SPRAY 1 SPRAY NOSTRIL-B (09:05)
[2020-12-21] MEDS: 0.9 % Sodium Chloride Flush 3 ML SYRINGE IVFLUSH ×2 (09:37→16:31)
[2020-12-21] MEDS: Ferrous Sulfate 324 MG TABLET.DR PO (11:44)
--- NOTE | 2020-12-21 11:46 | P.PNIM_ITS ---
Subjective Subjective Date of Service: 12/21/20 Interval History: The patient was seen and evaluated this morning Laying in bed, complaining of pain at the wound area Denies any fever, chills or shortness of breath Wound area little bit painful, no drainage No reported other overnight events. Systemic review: No fever, chills or weakness No chest pain, palpitation No shortness of breath or coughing No abdominal pain, nausea or vomiting No urinary symptoms Wound area looks stable with no drainage noted Physical Exam Vital Signs: Vital Signs: Last Vital Signs Temp 99.4 F 12/21/20 07:26 Pulse 66 12/21/20 07:26 Resp 17 12/21/20 07:26 BP 117/55 L 12/21/20 07:26 Pulse Ox 95 12/21/20 07:26 Body Mass Index 30.9 Const: Other: Constitutional : Alert,, not in distress Neck : Normal inspection, Supple Cardiovascular : RRR, S1 S2, no lower extremity edema Respiratory : Good bilateral air entry, no crackles, wheezes or rhonchi Gastrointestinal: soft, lax, Normal bowel sounds, Non tender Skin : Warm/Dry, No rash Genitourinary: Jacobs in place. erythema and induration of penis/suprapubic area improved. scrotum with packing Neurological : Alert & oriented , No focal deficit Objective Data Current Medications Generic Name Dose Route Start Last Admin Trade Name Freq PRN Reason Stop Dose Admin Acetaminophen 650 mg 12/17/20 17:28 12/20/20 08:55 Acetaminophen 325 Mg Tablet PO 650 mg Q6H PRN Administration Pain, Mild (Pain Scale 1-3) Apixaban 5 mg 12/21/20 21:00 Apixaban 5 Mg Tablet PO BID ROXANN Bisacodyl 10 mg 12/17/20 17:35 Bisacodyl 10 Mg Supp.Rect AL DAILY PRN Constipation Cyanocobalamin 1,000 mcg 12/18/20 09:00 12/21/20 09:04 Cyanocobalamin (Vitamin B-12) 1,000 Mcg Tablet PO 1,000 mcg DAILY ROXANN Administration Docusate Sodium 100 mg 12/17/20 17:28 Docusate Sodium 100 Mg Capsule PO DAILY PRN Constipation Escitalopram Oxalate 10 mg 12/18/20 09:00 12/21/20 09:04 Escitalopram Oxalate 10 Mg Tablet PO 10 mg DAILY ROXANN Administration Fentanyl 25 mcg 12/18/20 18:04 12/18/20 18:48 Fentanyl Citrate/Pf 100 Mcg/2 Ml Vial IVPUSH 25 mcg Q5M PRN Administration Pain, Moderate (Pain Scale 4-6 Ferrous Sulfate 324 mg 12/19/20 10:45 12/19/20 12:15 Ferrous Sulfate 324 Mg Tablet.Dr PO 324 mg Q48H ROXANN Administration Fluticasone Propionate 1 spray 12/18/20 09:00 12/21/20 09:05 Fluticasone Propionate Nasal 16 Gm [place] NOSTRIL-B 1 spray DAILY ROXANN Administration Piperacillin Sod/Tazobactam 100 mls @ 200 mls/hr 12/17/20 17:28 12/21/20 06:29 Sod 4.5 gm/ Sodium Chloride IV Infused Q6H ROXANN Infusion Vancomycin HCl 1,250 mg/ 250 mls @ 166.667 mls/hr 12/18/20 13:00 12/20/20 14:36 Sodium Chloride IV Infused Q24H ROXANN Infusion Insulin Human Lispro 0 unit 12/17/20 17:28 12/21/20 07:31 Insulin Lispro 100 Unit/Ml 3 Ml Vial SUBCUT Not Given QIDACHS [facility] Protocol Magnesium Hydroxide 30 ml 12/17/20 17:35 Milk Of Magnesia 30 Ml Oral.Susp PO BEDTIME PRN Constipation Morphine Sulfate 2 mg 12/17/20 17:28 Morphine Sulfate 4 Mg/Ml Cartridge IVPUSH Q4H PRN Pain, Severe (Pain Scale 7-10) Multivitamins/Vitamin C 1 tab 12/18/20 09:00 12/21/20 09:05 Multivitamin Tablet PO 1 tab DAILY ROXANN Administration Ondansetron HCl 4 mg 12/17/20 17:28 12/18/20 21:20 Ondansetron Hcl 4 Mg/2 Ml Vial IVPUSH 4 mg Q8H PRN Administration Nausea and Vomiting Oxycodone HCl 10 mg 12/17/20 17:35 12/21/20 09:03 Oxycodone Hcl Immed Release 5 Mg Tablet PO 10 mg Q6H PRN Administration Pain Pharmacy Consult 1 each 12/17/20 10:55 Consult Rx Vancomycin Dosing MISCELLANE DAILY PRN Consult order Pharmacy Consult 1 each 12/17/20 15:13 Consult Rx Perform Med Rec MISCELLANE ONCE PRN Consult order Potassium Chloride 20 meq 12/18/20 09:00 12/21/20 11:38 Potassium Chloride Er 20 Meq Tab.Er.Prt PO Not Given DAILY [facility] Sodium Chloride 3 ml 12/18/20 00:00 12/21/20 09:37 0.9 % Sodium Chloride Flush 3 Ml Syringe IVFLUSH 3 ml QSHIFT [facility] Administration Labs CBC & Chem 7: 12/21/20 06:12 12/21/20 06:12 Microbiology Microbiology Results: Microbiology 12/18/20 Unknown Scrotum Gram Stain - Final 12/18/20 Unknown Scrotum Routine Culture - Final No growth after 2 days 12/17/20 11:07 Blood - Venous Blood Culture - Preliminary No growth after 48 hours. 12/17/20 11:06 Blood - Venous Blood Culture - Preliminary No growth after 48 hours. 12/17/20 Unknown Urine [place] Urine Culture - Final Escherichia coli Assessment and Plan (1) Abscess of penis: Status: Acute (2) Cellulitis of scrotum: Status: Acute (3) Atypical chest pain: Status: Acute Assessment and Plan: hospital d#5 80yo M resident of [facility] with PMHx DM2, AF on apixaban, CHF admitted for worsening scrotal/penile cellulitis, failed outpatient antibiotics and developed penile abscess # penile abscess # scrotal cellulitis no evidence of Medina's gangrene POD #3 I+D by Dr Bradshaw (Urology) vancomycin + piperacillin/tazobactam d#4, ID consult pending # UTI Cx E.Coi continue Abx # JAZLYN, mild Improving hold furosemide, recheck BMP tomorrow # Acute on chronic anemia minimal blood loss reported with hematuria Improved to 8 day Resume Eliquis monitor H&H # hypoK replete, recheck BMP tomorrow # atypical chest pain resolved, was likely gastritis # JOSE replete Fe. already on B12 # AF resume apixaban # CHF not decompensated. hold furosemide as above # DM2, A1c 6.1 correction-dose lispro # depression continue escitalopram # VTE ppx apixaban # dispo - eventual return to [facility]
[2020-12-21 13:39] LABS: Vancomycin Trough 14.7 mcg/mL (10.0-20.0)
[2020-12-21] MEDS: vancomycin HCL 1,250 MG in 0.9 % Sodium Chloride 250 ML 166 MG IV (14:38)
--- NOTE | 2020-12-21 15:26 | MHC.CM.PN ---
EMR REVIEWED, PER HOSPITALIST PT WILL REMAIN INPT 1-2 MORE DAYS, PT CURRENTLY AWAITING ID CONSULT. DISCHARGE PLAN: RETURN TO [facility], S TRANSPORT
[2020-12-21 15:59] VITALS: BP 102/49; PULSE 65; RESP 15; TEMP 36.6; O2SAT 94
[2020-12-21 18:00] VITALS: O2SAT 94
[2020-12-21] MEDS: Apixaban 5 MG TABLET PO (21:14)
[2020-12-22] VITALS: BP 108/47; PULSE 69; RESP 18; TEMP 36.1; O2SAT 93
[2020-12-22] MEDS: Piperacillin Sodium/Tazobactam 4.5 GM in 0.9 % Sodium Chloride 100 ML IV ×4 (01:04→17:30)
[2020-12-22] MEDS: 0.9 % Sodium Chloride Flush 3 ML SYRINGE IVFLUSH ×3 (01:12→15:45)
[2020-12-22 03:57] VITALS: BP 120/56; PULSE 72; RESP 18; TEMP 36.4; O2SAT 94
[2020-12-22] MEDS: oxyCODONE HCl Immed Release 5 MG TABLET 10 MG PO ×2 (06:42→12:52)
[2020-12-22 07:45] VITALS: BP 117/58; PULSE 62; RESP 18; TEMP 36.1; O2SAT 95
--- NOTE | 2020-12-22 08:33 | P.PNUR_ITS ---
Subjective Subjective Date of Service: 12/21/20 Interval history: Patient seen Packing removed from scrotal abscess Wet to moist packing placed to be changed daily Abscess looking as though it is healing well Physical Exam Vital Signs: Vital Signs: Last Vital Signs Temp 96.9 F 12/22/20 07:45 Pulse 62 12/22/20 07:45 Resp 18 12/22/20 07:45 BP 117/58 L 12/22/20 07:45 Pulse Ox 95 12/22/20 07:45 Body Mass Index 30.9 Const: General: cooperative, healthy appearing, comfortable and no acute distress Nutritional Appearance: average body habitus Orientation/consciousness: oriented to person, oriented to place and oriented to time Eyes: General: appearance normal, both eyes and all related structures Chest: Chest palpation & inspection: normal inspection of the chest Resp: Effort & Inspection: normal respiratory effort Cardio: Rate: regular rate GI: Inspection: Yes normal to inspection : Other: Scrotal abscess packing removed replaced Skin: Hair: normal Neuro: General: oriented to person, oriented to place and oriented to time Extrem: General: Yes normal to inspection Urology Results Labs CBC & Chem 7: 12/21/20 06:12 12/21/20 06:12 Labs: Laboratory Results - last 24 hr 12/21/20 12:48 Vancomycin Trough 14.7 Progress Note: A&P Assessment and plan (1) Scrotal abscess: Problem details: Drained November 2020 Status: Acute Assessment and Plan: Wet to moist dressing changes daily for healing abscess Fall Risk Details Current Medications: Current Medications Generic Name Dose Route Start Last Admin Trade Name Freq PRN Reason Stop Dose Admin Acetaminophen 650 mg 12/17/20 17:28 12/20/20 08:55 Acetaminophen 325 Mg Tablet PO 650 mg Q6H PRN Administration Pain, Mild (Pain Scale 1-3) Apixaban 5 mg 12/21/20 21:00 12/21/20 21:14 Apixaban 5 Mg Tablet PO 5 mg BID ROXANN Administration Bisacodyl 10 mg 12/17/20 17:35 Bisacodyl 10 Mg Supp.Rect [place] DAILY PRN Constipation Cyanocobalamin 1,000 mcg 12/18/20 09:00 12/21/20 09:04 Cyanocobalamin (Vitamin B-12) 1,000 Mcg Tablet PO 1,000 mcg DAILY ROXANN Administration Docusate Sodium 100 mg 12/17/20 17:28 Docusate Sodium 100 Mg Capsule PO DAILY PRN Constipation Escitalopram Oxalate 10 mg 12/18/20 09:00 12/21/20 09:04 Escitalopram Oxalate 10 Mg Tablet PO 10 mg DAILY ROXANN Administration Fentanyl 25 mcg 12/18/20 18:04 12/18/20 18:48 Fentanyl Citrate/Pf 100 Mcg/2 Ml Vial IVPUSH 25 mcg Q5M PRN Administration Pain, Moderate (Pain Scale 4-6 Ferrous Sulfate 324 mg 12/19/20 10:45 12/21/20 11:44 Ferrous Sulfate 324 Mg Tablet. PO 324 mg Q48H ROXANN Administration Fluticasone Propionate 1 spray 12/18/20 09:00 12/21/20 09:05 Fluticasone Propionate Nasal 16 Gm [place] NOSTRIL-B 1 spray DAILY ROXANN Administration Piperacillin Sod/Tazobactam 100 mls @ 200 mls/hr 12/17/20 17:28 12/22/20 07:00 Sod 4.5 gm/ Sodium Chloride IV Infused Q6H COUNTS INCLUDE 234 BEDS AT THE [facility] Infusion Vancomycin HCl 1,250 mg/ 250 mls @ 166.667 mls/hr 12/18/20 13:00 12/21/20 16:24 Sodium Chloride IV Infused Q24H ROXANN Infusion Insulin Human Lispro 0 unit 12/17/20 17:28 12/21/20 21:13 Insulin Lispro 100 Unit/Ml 3 Ml Vial SUBCUT Not Given QIDACHS COUNTS INCLUDE 234 BEDS AT THE [facility] Protocol Magnesium Hydroxide 30 ml 12/17/20 17:35 Milk Of Magnesia 30 Ml Oral.Susp PO BEDTIME PRN Constipation Morphine Sulfate 2 mg 12/17/20 17:28 Morphine Sulfate 4 Mg/Ml Cartridge IVPUSH Q4H PRN Pain, Severe (Pain Scale 7-10) Multivitamins/Vitamin C 1 tab 12/18/20 09:00 12/21/20 09:05 Multivitamin Tablet PO 1 tab DAILY ROXANN Administration Ondansetron HCl 4 mg 12/17/20 17:28 12/18/20 21:20 Ondansetron Hcl 4 Mg/2 Ml Vial IVPUSH 4 mg Q8H PRN Administration Nausea and Vomiting Oxycodone HCl 10 mg 12/17/20 17:35 12/22/20 06:42 Oxycodone Hcl Immed Release 5 Mg Tablet PO 10 mg Q6H PRN Administration Pain Pharmacy Consult 1 each 12/17/20 10:55 Consult Rx Vancomycin Dosing MISCELLANE DAILY PRN Consult order Pharmacy Consult 1 each 12/17/20 15:13 Consult Rx Perform Med Rec MISCELLANE ONCE PRN Consult order Potassium Chloride 20 meq 12/18/20 09:00 12/21/20 11:38 Potassium Chloride Er 20 Meq Tab.Er.Prt PO Not Given DAILY ROXANN Sodium Chloride 3 ml 12/18/20 00:00 12/22/20 01:12 0.9 % Sodium Chloride Flush 3 Ml Syringe IVFLUSH 3 ml QSHIFT ROXANN Administration Time Spent With Patient Time: Total time spent is greater than 50% in coordination of care (as documented) at patient's floor/unit and/or counseling patient: Time with patient: 15 - 24 minutes
[2020-12-22] MEDS: Cyanocobalamin (Vitamin B-12) 1,000 MCG TABLET 1000 MCG PO (10:31)
[2020-12-22] MEDS: Apixaban 5 MG TABLET PO ×2 (10:31→21:44)
[2020-12-22] MEDS: Potassium Chloride ER 20 MEQ TAB.ER.PRT PO (10:31)
[2020-12-22] MEDS: Multivitamin TABLET 1 TAB PO (10:32)
[2020-12-22] MEDS: Escitalopram Oxalate 10 MG TABLET PO (10:32)
[2020-12-22] MEDS: Fluticasone Propionate Nasal 16 GM SPRAY 1 SPRAY NOSTRIL-B (10:33)
--- NOTE | 2020-12-22 11:09 | MHC.CM.PN ---
PER MULTIDISCIPLINARY ROUNDS PT WILL BE DISCHARGED BACK TO [facility] TOMORROW 12/23/20, HOSPITALIST REQUESTED CM CONTACT THEM ABOUT ABILITY TO PERFORM PT'S WOUND CARE WHICH INCLUDES PACKING AND NEED FOR FOLLOW-UP W/UROLOGY, CM CALLED [facility] AND WAS TRANSFERRED TO PT'S UNIT [address], CM LEFT MESSAGE AT 11:08AM ([phone]) W/ ANTICIPATED D/C DATE AND REQUEST FOR RETURN CALL.
[2020-12-22] MEDS: vancomycin HCL 1,250 MG in 0.9 % Sodium Chloride 250 ML 166 MG IV (12:04)
--- NOTE | 2020-12-22 13:17 | HO.PM.IMPN ---
Subjective Subjective Date of Service: 12/22/20 Interval History: The patient was seen and evaluated this morning Laying in bed, complaining of worsening pain at the wound area requiring IV morphine Denies any fever, chills or shortness of breath Wound area little bit painful, no drainage No reported other overnight events. Systemic review: No fever, chills or weakness No chest pain, palpitation No shortness of breath or coughing No abdominal pain, nausea or vomiting No urinary symptoms Wound area looks stable with no drainage noted Physical Exam Vital Signs: Vital Signs: Last Vital Signs Temp 96.9 F 12/22/20 07:45 Pulse 62 12/22/20 07:45 Resp 18 12/22/20 07:45 BP 117/58 L 12/22/20 07:45 Pulse Ox 95 12/22/20 07:45 Body Mass Index 30.9 Const: Other: Constitutional : Alert,, not in distress Neck : Normal inspection, Supple Cardiovascular : RRR, S1 S2, no lower extremity edema Respiratory : Good bilateral air entry, no crackles, wheezes or rhonchi Gastrointestinal: soft, lax, Normal bowel sounds, Non tender Skin : Warm/Dry, No rash Genitourinary: Jacobs in place. erythema and induration of penis/suprapubic area improved. scrotum with packing Neurological : Alert & oriented , No focal deficit Objective Data Current Medications Generic Name Dose Route Start Last Admin Trade Name Freq PRN Reason Stop Dose Admin Acetaminophen 650 mg 12/17/20 17:28 12/20/20 08:55 Acetaminophen 325 Mg Tablet PO 650 mg Q6H PRN Administration Pain, Mild (Pain Scale 1-3) Apixaban 5 mg 12/21/20 21:00 12/22/20 10:31 Apixaban 5 Mg Tablet PO 5 mg BID ROXANN Administration Bisacodyl 10 mg 12/17/20 17:35 Bisacodyl 10 Mg Supp.Rect [place] DAILY PRN Constipation Cyanocobalamin 1,000 mcg 12/18/20 09:00 12/22/20 10:31 Cyanocobalamin (Vitamin B-12) 1,000 Mcg Tablet PO 1,000 mcg DAILY ROXANN Administration Docusate Sodium 100 mg 12/17/20 17:28 Docusate Sodium 100 Mg Capsule PO DAILY PRN Constipation Escitalopram Oxalate 10 mg 12/18/20 09:00 12/22/20 10:32 Escitalopram Oxalate 10 Mg Tablet PO 10 mg DAILY ROXANN Administration Fentanyl 25 mcg 12/18/20 18:04 12/18/20 18:48 Fentanyl Citrate/Pf 100 Mcg/2 Ml Vial IVPUSH 25 mcg Q5M PRN Administration Pain, Moderate (Pain Scale 4-6 Ferrous Sulfate 324 mg 12/19/20 10:45 12/21/20 11:44 Ferrous Sulfate 324 Mg Tablet.Dr PO 324 mg Q48H ROXANN Administration Fluticasone Propionate 1 spray 12/18/20 09:00 12/22/20 10:33 Fluticasone Propionate Nasal 16 Gm [place] NOSTRIL-B 1 spray DAILY ROXANN Administration Piperacillin Sod/Tazobactam 100 mls @ 200 mls/hr 12/17/20 17:28 12/22/20 11:43 Sod 4.5 gm/ Sodium Chloride IV Infused Q6H ROXANN Infusion Vancomycin HCl 1,250 mg/ 250 mls @ 166.667 mls/hr 12/18/20 13:00 12/22/20 12:04 Sodium Chloride IV 166 mls/hr Q24H ROXANN Administration Insulin Human Lispro 0 unit 12/17/20 17:28 12/22/20 11:43 Insulin Lispro 100 Unit/Ml 3 Ml Vial SUBCUT Not Given QIDACHS [facility] Protocol Magnesium Hydroxide 30 ml 12/17/20 17:35 Milk Of Magnesia 30 Ml Oral.Susp PO BEDTIME PRN Constipation Morphine Sulfate 2 mg 12/17/20 17:28 Morphine Sulfate 4 Mg/Ml Cartridge IVPUSH Q4H PRN Pain, Severe (Pain Scale 7-10) Multivitamins/Vitamin C 1 tab 12/18/20 09:00 12/22/20 10:32 Multivitamin Tablet PO 1 tab DAILY ROXANN Administration Ondansetron HCl 4 mg 12/17/20 17:28 12/18/20 21:20 Ondansetron Hcl 4 Mg/2 Ml Vial IVPUSH 4 mg Q8H PRN Administration Nausea and Vomiting Oxycodone HCl 10 mg 12/17/20 17:35 12/22/20 12:52 Oxycodone Hcl Immed Release 5 Mg Tablet PO 10 mg Q6H PRN Administration Pain Pharmacy Consult 1 each 12/17/20 10:55 Consult Rx Vancomycin Dosing MISCELLANE DAILY PRN Consult order Pharmacy Consult 1 each 12/17/20 15:13 Consult Rx Perform Med Rec MISCELLANE ONCE PRN Consult order Potassium Chloride 20 meq 12/18/20 09:00 12/22/20 10:31 Potassium Chloride Er 20 Meq Tab.Er.Prt PO 20 meq DAILY ROXANN Administration Sodium Chloride 3 ml 12/18/20 00:00 12/22/20 10:41 0.9 % Sodium Chloride Flush 3 Ml Syringe IVFLUSH 3 ml QSHIFT ROXANN Administration Labs CBC & Chem 7: 12/21/20 06:12 12/21/20 06:12 Microbiology Microbiology Results: Microbiology 12/17/20 11:07 Blood - Venous Blood Culture - Final No growth after 5 days. 12/17/20 11:06 Blood - Venous Blood Culture - Final No growth after 5 days. 12/18/20 Unknown Scrotum Gram Stain - Final 12/18/20 Unknown Scrotum Routine Culture - Final No growth after 2 days 12/17/20 Unknown Urine [place] Urine Culture - Final Escherichia coli Assessment and Plan (1) Abscess of penis: Status: Acute (2) Cellulitis of scrotum: Status: Acute (3) Atypical chest pain: Status: Acute Assessment and Plan: hospital d#5 80yo M resident of [facility] with PMHx DM2, AF on apixaban, CHF admitted for worsening scrotal/penile cellulitis, failed outpatient antibiotics and developed penile abscess # penile abscess # scrotal cellulitis Improving slowly Still have significant amount of pain requiring IV morphine use oxycodone as needed as well no evidence of Medina's gangrene POD #4 I+D by Dr Bradshaw (Urology) vancomycin + piperacillin/tazobactam d#5, ID input appreciated # UTI Cx E.Coi continue Abx # JAZLYN, mild Improving hold furosemide, recheck BMP tomorrow # Acute on chronic anemia minimal blood loss reported with hematuria Improved to 8 day Resume Eliquis monitor H&H # hypoK Resolved # atypical chest pain resolved, was likely gastritis # JOSE replete Fe. already on B12 # AF resume apixaban # CHF not decompensated. hold furosemide as above # DM2, A1c 6.1 correction-dose lispro # depression continue escitalopram # VTE ppx apixaban # dispo Plan to DC to [facility] by tomorrow morning
--- NOTE | 2020-12-22 13:39 | MHC.CM.PN ---
PER HOSPITALIST PT WILL D/C 12/23/20, CM CONTACTED NOAM NURSE COORDINATOR AT APPROX 1:25PM AND ARRANGED A NOON D/C FOR PT TO RETURN TO [facility].
[2020-12-22 15:15] VITALS: BP 96/48; PULSE 67; RESP 18; TEMP 36.6; O2SAT 95
[2020-12-22 22:49] LABS: COVID-19 Test Negative (Negative); IDNOW Serial# 9DD0AD1C
[2020-12-23] VITALS: BP 109/53; PULSE 77; RESP 18; TEMP 37; O2SAT 93
[2020-12-23] MEDS: 0.9 % Sodium Chloride Flush 3 ML SYRINGE IVFLUSH ×4 (00:18→20:25)
[2020-12-23] MEDS: Piperacillin Sodium/Tazobactam 4.5 GM in 0.9 % Sodium Chloride 100 ML IV ×5 (00:18→23:29)
[2020-12-23 07:58] VITALS: BP 110/60; PULSE 78; RESP 18; TEMP 37.1; O2SAT 96
[2020-12-23] MEDS: Cyanocobalamin (Vitamin B-12) 1,000 MCG TABLET 1000 MCG PO (08:22)
[2020-12-23] MEDS: Multivitamin TABLET 1 TAB PO (08:22)
[2020-12-23] MEDS: Apixaban 5 MG TABLET PO ×2 (08:22→20:25)
[2020-12-23] MEDS: Potassium Chloride ER 20 MEQ TAB.ER.PRT PO (08:22)
[2020-12-23] MEDS: Fluticasone Propionate Nasal 16 GM SPRAY 1 SPRAY NOSTRIL-B (08:23)
[2020-12-23] MEDS: Escitalopram Oxalate 10 MG TABLET PO (08:23)
--- NOTE | 2020-12-23 08:24 | MHC.CM.PN ---
IMM 12/23/20, PT DISCHARGING BACK TO [facility], [facility] FOR BLS TRANSPORT
[2020-12-23] MEDS: Ferrous Sulfate 324 MG TABLET.DR PO (10:21)
--- NOTE | 2020-12-23 10:58 | MHC.CM.PN ---
FÁTIMA CONTACTED [facility] AT 10:50AM ([phone]) AND SPOKE TO [place] TO LET THEM KNOW ABOUT PT'S DISCHARGE BEING POSTPONED UNTIL TOMORROW, PT RESISTANT TO RETURN DUE TO ROOMMATE BEING LOUD, YELLING AND BEING DEMANDING, FÁTIMA DID SPEAK TO GAIL LEZAMA ON SAME PHONE CALL AND LET HER KNOW PT'S CONCERNS, PER GAIL THEY WILL TRY TO FIGURE OUT A NEW ROOM OR ROOMMATE FOR PT AND WILL CALL CM BACK TO UPDATE.
[2020-12-23] MEDS: vancomycin HCL 1,250 MG in 0.9 % Sodium Chloride 250 ML 166 MG IV (12:25)
--- NOTE | 2020-12-23 13:40 | P.PNIM_ITS ---
Subjective Subjective Date of Service: 12/23/20 Interval History: The patient was seen and evaluated this morning Laying in bed, complaining of pain at the wound area requiring IV morphine Denies any fever, chills or shortness of breath Wound area little bit painful, no drainage No reported other overnight events. Systemic review: No fever, chills or weakness No chest pain, palpitation No shortness of breath or coughing No abdominal pain, nausea or vomiting No urinary symptoms Wound area looks stable with no drainage noted Physical Exam Vital Signs: Vital Signs: Last Vital Signs Temp 98.7 F 12/23/20 07:58 Pulse 78 12/23/20 07:58 Resp 18 12/23/20 07:58 BP 110/60 12/23/20 07:58 Pulse Ox 96 12/23/20 07:58 Body Mass Index 30.9 Const: Other: Constitutional : Alert,, not in distress Neck : Normal inspection, Supple Cardiovascular : RRR, S1 S2, no lower extremity edema Respiratory : Good bilateral air entry, no crackles, wheezes or rhonchi Gastrointestinal: soft, lax, Normal bowel sounds, Non tender Skin : Warm/Dry, No rash Genitourinary: Jacobs in place. erythema and induration of penis/suprapubic area improved. scrotum with packing Neurological : Alert & oriented , No focal deficit Objective Data Current Medications Generic Name Dose Route Start Last Admin Trade Name Freq PRN Reason Stop Dose Admin Acetaminophen 650 mg 12/17/20 17:28 12/20/20 08:55 Acetaminophen 325 Mg Tablet PO 650 mg Q6H PRN Administration Pain, Mild (Pain Scale 1-3) Apixaban 5 mg 12/21/20 21:00 12/23/20 08:22 Apixaban 5 Mg Tablet PO 5 mg BID ROXANN Administration Bisacodyl 10 mg 12/17/20 17:35 Bisacodyl 10 Mg Supp.Rect [place] DAILY PRN Constipation Cyanocobalamin 1,000 mcg 12/18/20 09:00 12/23/20 08:22 Cyanocobalamin (Vitamin B-12) 1,000 Mcg Tablet PO 1,000 mcg DAILY ROXANN Administration Docusate Sodium 100 mg 12/17/20 17:28 Docusate Sodium 100 Mg Capsule PO DAILY PRN Constipation Escitalopram Oxalate 10 mg 12/18/20 09:00 12/23/20 08:23 Escitalopram Oxalate 10 Mg Tablet PO 10 mg DAILY ROXANN Administration Fentanyl 25 mcg 12/18/20 18:04 12/18/20 18:48 Fentanyl Citrate/Pf 100 Mcg/2 Ml Vial IVPUSH 25 mcg Q5M PRN Administration Pain, Moderate (Pain Scale 4-6 Ferrous Sulfate 324 mg 12/19/20 10:45 12/23/20 10:21 Ferrous Sulfate 324 Mg Tablet.Dr PO 324 mg Q48H ROXANN Administration Fluticasone Propionate 1 spray 12/18/20 09:00 12/23/20 08:23 Fluticasone Propionate Nasal 16 Gm [place] NOSTRIL-B 1 spray DAILY ROXANN Administration Piperacillin Sod/Tazobactam 100 mls @ 200 mls/hr 12/17/20 17:28 12/23/20 10:58 Sod 4.5 gm/ Sodium Chloride IV Infused Q6H ROXANN Infusion Vancomycin HCl 1,250 mg/ 250 mls @ 166.667 mls/hr 12/18/20 13:00 12/23/20 12:25 Sodium Chloride IV 166 mls/hr Q24H ROXANN Administration Insulin Human Lispro 0 unit 12/17/20 17:28 12/23/20 11:38 Insulin Lispro 100 Unit/Ml 3 Ml Vial SUBCUT Not Given QIDACHS [facility] Protocol Magnesium Hydroxide 30 ml 12/17/20 17:35 Milk Of Magnesia 30 Ml Oral.Susp PO BEDTIME PRN Constipation Multivitamins/Vitamin C 1 tab 12/18/20 09:00 12/23/20 08:22 Multivitamin Tablet PO 1 tab DAILY ROXANN Administration Ondansetron HCl 4 mg 12/17/20 17:28 12/18/20 21:20 Ondansetron Hcl 4 Mg/2 Ml Vial IVPUSH 4 mg Q8H PRN Administration Nausea and Vomiting Pharmacy Consult 1 each 12/17/20 10:55 Consult Rx Vancomycin Dosing MISCELLANE DAILY PRN Consult order Pharmacy Consult 1 each 12/17/20 15:13 Consult Rx Perform Med Rec MISCELLANE ONCE PRN Consult order Potassium Chloride 20 meq 12/18/20 09:00 12/23/20 08:22 Potassium Chloride Er 20 Meq Tab.Er.Prt PO 20 meq DAILY ROXANN Administration Sodium Chloride 3 ml 12/18/20 00:00 12/23/20 08:28 0.9 % Sodium Chloride Flush 3 Ml Syringe IVFLUSH 3 ml QSHIFT ROXANN Administration Labs CBC & Chem 7: 12/21/20 06:12 12/21/20 06:12 Microbiology Microbiology Results: Microbiology 12/17/20 11:07 Blood - Venous Blood Culture - Final No growth after 5 days. 12/17/20 11:06 Blood - Venous Blood Culture - Final No growth after 5 days. 12/18/20 Unknown Scrotum Gram Stain - Final 12/18/20 Unknown Scrotum Routine Culture - Final No growth after 2 days 12/17/20 Unknown Urine [place] Urine Culture - Final Escherichia coli Assessment and Plan (1) Abscess of penis: Status: Acute (2) Cellulitis of scrotum: Status: Acute (3) Atypical chest pain: Status: Acute Assessment and Plan: hospital d#6 80yo M resident of [facility] with PMHx DM2, AF on apixaban, CHF admitted for worsening scrotal/penile cellulitis, failed outpatient antibiotics and developed penile abscess # penile abscess # scrotal cellulitis Improving slowly Still have significant amount of pain requiring IV morphine use oxycodone as needed as well no evidence of Medina's gangrene POD #5 I+D by Dr Bradshaw (Urology) vancomycin + piperacillin/tazobactam d#6, ID input appreciated # UTI Cx E.Coi continue Abx # JAZLYN, mild Improving hold furosemide, recheck BMP tomorrow # Acute on chronic anemia minimal blood loss reported with hematuria Improved to 8 day Resume Eliquis monitor H&H # hypoK Resolved # atypical chest pain resolved, was likely gastritis # JOSE replete Fe. already on B12 # AF resume apixaban # CHF not decompensated. hold furosemide as above # DM2, A1c 6.1 correction-dose lispro # depression continue escitalopram # VTE ppx apixaban # dispo Plan to DC to [facility] by tomorrow morning
[2020-12-23 16:00] VITALS: BP 103/52; PULSE 76; RESP 18; TEMP 36.7; O2SAT 94
[2020-12-23 18:00] VITALS: O2SAT 94
[2020-12-23 23:12] VITALS: BP 109/59; PULSE 72; RESP 18; TEMP 36.3; O2SAT 96
[2020-12-23 23:12] LABS: CDIFF Ag Positive (Negative); CDiff Toxin Positive (Negative)
[2020-12-23 23:17] LABS: CDIFF Internal ctrl Dots and bkg OK (V)
[2020-12-23] MEDS: vancomycin HCL 125 MG CAPSULE PO (23:42)
[2020-12-23 23:45] LABS: MANUAL DIFF FLAG NO
[2020-12-23 23:46] LABS: Basophils Percent Auto 0.3 % (0-2); Eosinophils Absolute Auto 0.1 X10*3/uL (0.0-0.4); Eosinophils Percent Auto 0.6 % (0-4); Hematocrit 27.7 % (42-52); Hemoglobin 8.5 g/dl (14.0-18.0); Imm Gran Abs Auto 0.11 X10*3/uL (0.00-0.03); Imm Gran Pct Auto 0.7 % (0.0-0.4); Lymphocytes Absolute Auto 1.3 X10*3/uL (1.2-4.9); Lymphocytes Percent Auto 8.7 % (20-40); Mean Corpuscular HGB Conc 30.7 g/dl (31.0-36.0); Mean Corpuscular Hemoglobin 28.9 pg (27.0-33.0); Mean Corpuscular Volume 94.2 fL (80-98); Mean Platelet Volume 8.9 fL (9.4-12.4); Monocytes Percent Auto 6.5 % (2-11); Neutrophils Absolute Auto 12.3 X10*3/uL (2.0-8.3); Neutrophils Percent Auto 83.2 % (45-73); Platelet Count 295 X10*3/uL (160-400); Red Blood Count 2.94 X10*6/uL (4.60-5.80); Red Cell Distribution Width 16.9 % (11.0-16.0); White Blood Count 14.8 X10*3/uL (4.8-10.8)
[2020-12-24 00:18] LABS: Anion Gap 14 (12-20); Blood Urea Nitrogen 10 mg/dL (9-16); Calcium 7.6 mg/dL (8.4-10.2); Carbon Dioxide 24 mmol/L (22-29); Chloride 105 mmol/L (96-108); Creatinine Clr Calc Pharmacy 64.9; Estimated Glomerular Filt Rate 55; Glucose Random 108 mg/dL (60-115); Sodium 140 mmol/L (135-145)
--- NOTE | 2020-12-24 03:09 | PC.NURSE ---
Patient complaining of stomach pain. Having several loose stools - very foul odor, watery. Hospitalist contacted and this RN requested to check his stool for C.Diff. Test ordered. Lab called to report C. Diff is positive. Hospitalist notified of positive results and NANCY lopez was ordered.
[2020-12-24] MEDS: Potassium Chloride Packet 20 MEQ PACKET 40 MEQ PO ×2 (05:11→09:01)
[2020-12-24] MEDS: Piperacillin Sodium/Tazobactam 4.5 GM in 0.9 % Sodium Chloride 100 ML IV (05:11)
[2020-12-24] MEDS: vancomycin HCL 125 MG CAPSULE PO ×2 (05:23→11:10)
[2020-12-24 07:03] LABS: Hematocrit 27.8 % (42-52); Hemoglobin 8.5 g/dl (14.0-18.0); Mean Corpuscular HGB Conc 30.6 g/dl (31.0-36.0); Mean Corpuscular Volume 94.9 fL (80-98); Mean Platelet Volume 8.8 fL (9.4-12.4); Platelet Count 295 X10*3/uL (160-400); Red Blood Count 2.93 X10*6/uL (4.60-5.80); Red Cell Distribution Width 16.7 % (11.0-16.0)
[2020-12-24 07:05] LABS: Anion Gap 17 (12-20); Blood Urea Nitrogen 10 mg/dL (9-16); Calcium 7.6 mg/dL (8.4-10.2); Carbon Dioxide 22 mmol/L (22-29); Chloride 104 mmol/L (96-108); Creatinine Clr Calc Pharmacy 68.8; Estimated Glomerular Filt Rate 59; Glucose Random 97 mg/dL (60-115); Potassium 3.1 mmol/L (3.3-5.1); Sodium 140 mmol/L (135-145)
[2020-12-24 08:00] VITALS: BP 106/45; PULSE 64; RESP 18; TEMP 36.3; O2SAT 97
[2020-12-24] MEDS: 0.9 % Sodium Chloride Flush 3 ML SYRINGE IVFLUSH ×3 (08:46→20:43)
[2020-12-24] MEDS: Multivitamin TABLET 1 TAB PO (08:47)
[2020-12-24] MEDS: Cyanocobalamin (Vitamin B-12) 1,000 MCG TABLET 1000 MCG PO (08:47)
[2020-12-24] MEDS: Apixaban 5 MG TABLET PO ×2 (08:47→20:38)
[2020-12-24] MEDS: Escitalopram Oxalate 10 MG TABLET PO (08:47)
[2020-12-24] MEDS: Potassium Chloride ER 20 MEQ TAB.ER.PRT PO (08:47)
[2020-12-24] MEDS: Fluticasone Propionate Nasal 16 GM SPRAY 1 SPRAY NOSTRIL-B (09:01)
[2020-12-24] MEDS: Doxycycline Hyclate 100 MG in 0.9 % Sodium Chloride 250 ML 166.67 MG IV (11:07)
--- NOTE | 2020-12-24 11:33 | HO.PM.IMPN ---
Subjective Subjective Date of Service: 12/24/20 Interval History: The patient was seen and evaluated this morning Laying in bed, complaining of lower abdominal pain with diarrhea Wound pain as a Denies any fever, chills or shortness of breath Wound area little bit painful, no drainage No reported other overnight events. Systemic review: No fever, chills or weakness No chest pain, palpitation No shortness of breath or coughing Lower abdominal pain, nausea or vomiting No urinary symptoms Wound area looks stable with no drainage noted Physical Exam Vital Signs: Vital Signs: Last Vital Signs Temp 97.4 F 12/24/20 08:00 Pulse 64 12/24/20 08:00 Resp 18 12/24/20 08:00 BP 106/45 L 12/24/20 08:00 Pulse Ox 97 12/24/20 08:00 Body Mass Index 30.9 Const: Other: Constitutional : Alert,, not in distress Neck : Normal inspection, Supple Cardiovascular : RRR, S1 S2, no lower extremity edema Respiratory : Good bilateral air entry, no crackles, wheezes or rhonchi Gastrointestinal: soft, lax, Normal bowel sounds, Non tender Skin : Warm/Dry, No rash Genitourinary: Jacobs in place. erythema and induration of penis/suprapubic area improved. scrotum with packing Neurological : Alert & oriented , No focal deficit Objective Data Current Medications Generic Name Dose Route Start Last Admin Trade Name Freq PRN Reason Stop Dose Admin Acetaminophen 650 mg 12/17/20 17:28 12/20/20 08:55 Acetaminophen 325 Mg Tablet PO 650 mg Q6H PRN Administration Pain, Mild (Pain Scale 1-3) Apixaban 5 mg 12/21/20 21:00 12/24/20 08:47 Apixaban 5 Mg Tablet PO 5 mg BID ROXANN Administration Bisacodyl 10 mg 12/17/20 17:35 Bisacodyl 10 Mg Supp.Rect [place] DAILY PRN Constipation Cyanocobalamin 1,000 mcg 12/18/20 09:00 12/24/20 08:47 Cyanocobalamin (Vitamin B-12) 1,000 Mcg Tablet PO 1,000 mcg DAILY ROXANN Administration Docusate Sodium 100 mg 12/17/20 17:28 Docusate Sodium 100 Mg Capsule PO DAILY PRN Constipation Escitalopram Oxalate 10 mg 12/18/20 09:00 12/24/20 08:47 Escitalopram Oxalate 10 Mg Tablet PO 10 mg DAILY ROXANN Administration Ferrous Sulfate 324 mg 12/19/20 10:45 12/23/20 10:21 Ferrous Sulfate 324 Mg Tablet. PO 324 mg Q48H ROXANN Administration Fluticasone Propionate 1 spray 12/18/20 09:00 12/24/20 09:01 Fluticasone Propionate Nasal 16 Gm [place] NOSTRIL-B 1 spray DAILY ROXANN Administration Doxycycline Hyclate 100 mg/ 250 mls @ 166.67 mls/hr 12/24/20 11:00 12/24/20 11:07 Sodium Chloride IV 166.67 mls/hr Q12H ROXANN Administration Metronidazole 500 mg in 100 mls @ 100 mls/hr 12/24/20 12:00 Flagyl IV Q8H ROXANN Insulin Human Lispro 0 unit 12/17/20 17:28 12/24/20 08:46 Insulin Lispro 100 Unit/Ml 3 Ml Vial SUBCUT Not Given QIDACHS [facility] Protocol Magnesium Hydroxide 30 ml 12/17/20 17:35 Milk Of Magnesia 30 Ml Oral.Susp PO BEDTIME PRN Constipation Multivitamins/Vitamin C 1 tab 12/18/20 09:00 12/24/20 08:47 Multivitamin Tablet PO 1 tab DAILY [facility] Administration Ondansetron HCl 4 mg 12/17/20 17:28 12/18/20 21:20 Ondansetron Hcl 4 Mg/2 Ml Vial IVPUSH 4 mg Q8H PRN Administration Nausea and Vomiting Pharmacy Consult 1 each 12/17/20 15:13 Consult Rx Perform Med Rec MISCELLANE ONCE PRN Consult order Potassium Chloride 20 meq 12/18/20 09:00 12/24/20 08:47 Potassium Chloride Er 20 Meq Tab.Er.Prt PO 20 meq DAILY [facility] Administration Sodium Chloride 3 ml 12/18/20 00:00 12/24/20 08:46 0.9 % Sodium Chloride Flush 3 Ml Syringe IVFLUSH 3 ml QSHIFT ROXANN Administration Vancomycin HCl 125 mg 12/23/20 23:30 12/24/20 11:10 Vancomycin Hcl 125 Mg Capsule PO 125 mg Q6H ROXANN Administration Labs CBC & Chem 7: 12/24/20 06:15 12/24/20 06:15 Microbiology Microbiology Results: Microbiology 12/17/20 11:07 Blood - Venous Blood Culture - Final No growth after 5 days. 12/17/20 11:06 Blood - Venous Blood Culture - Final No growth after 5 days. 12/18/20 Unknown Scrotum Gram Stain - Final 12/18/20 Unknown Scrotum Routine Culture - Final No growth after 2 days 12/17/20 Unknown Urine [place] Urine Culture - Final Escherichia coli Assessment and Plan (1) Abscess of penis: Status: Acute (2) Cellulitis of scrotum: Status: Acute (3) Atypical chest pain: Status: Acute Assessment and Plan: hospital d#6 80yo M resident of [facility] with PMHx DM2, AF on apixaban, CHF admitted for worsening scrotal/penile cellulitis, failed outpatient antibiotics and developed penile abscess # C diff infection Has ongoing diarrhea positive toxin test Start oral vancomycin DC Zosyn Hold on images with coronal Monitors CBC and clinical picture # penile abscess # scrotal cellulitis Improving use oxycodone as needed as well no evidence of Medina's gangrene I+D by Dr Bradshaw (Urology) Discontinue vancomycin + piperacillin/tazobactam Start doxycycline and Flagyl D 7 antibiotics ID input appreciated # UTI Cx E.Coi Finish total 5 days of antibiotics # JAZLYN, mild Improving hold furosemide, recheck BMP tomorrow # Acute on chronic anemia minimal blood loss reported with hematuria Improved to 8 day Resume Eliquis monitor H&H # hypoK Resolved # atypical chest pain resolved, was likely gastritis # JOSE replete Fe. already on B12 # AF resume apixaban # CHF not decompensated. hold furosemide as above # DM2, A1c 6.1 correction-dose lispro # depression continue escitalopram # VTE ppx apixaban # dispo Plan to DC [facility] when stable
--- NOTE | 2020-12-24 11:44 | MHC.CM.PN ---
EMR REVIEWED, PER HOSPITALIST PT POSITIVE FOR CDIF AND WILL REMAIN IN HOSPITAL FOR 1-2 MORE DAYS, NOAM THE RN COORDINATOR AT [facility] WAS NOTIFIED THIS MORNING AT 10:58AM [phone].
[2020-12-24] MEDS: metroNIDAZOLE/NS 500 MG/100 ML PIGGYBACK 100 MG IV ×2 (12:54→20:38)
--- NOTE | 2020-12-24 15:23 | PM.IDPN ---
Subjective Subjective Date of Service: 12/24/20 Interval History: he has decreased erythema scrotal area Cdiff diagnosis,patient has had diarrhea Objective Data Labs CBC & Chem 7: 12/25/20 07:09 12/27/20 08:00 Labs: Laboratory Results - last 24 hr 12/23/20 12/23/20 12/23/20 21:03 23:38 23:38 WBC 14.8 H RBC 2.94 L Hgb 8.5 L Hct 27.7 L MCV 94.2 MCH 28.9 MCHC 30.7 L RDW 16.9 H Plt Count 295 MPV 8.9 L Immature Gran % (Auto) 0.7 H Neut % (Auto) 83.2 H Lymph % (Auto) 8.7 L [place] % (Auto) 6.5 Eos % (Auto) 0.6 Baso % (Auto) 0.3 Lymph # (Auto) 1.3 [place] # (Auto) 1.0 Eos # (Auto) 0.1 Baso # (Auto) 0.0 Abs Immat Gran (auto) 0.11 H Absolute Neuts (auto) 12.3 H Absolute Nucleated RBC 0.000 Nucleated RBC % (auto) 0.0 Sodium 140 Potassium 3.0 L D Chloride 105 Carbon Dioxide 24 Anion Gap 14 BUN 10 Creatinine 1.25 Estim Creat Clear Calc 64.9 Estimated GFR 55 Random Glucose 108 Calcium 7.6 L D C. difficile Toxin A&B Positive A C. difficile Antigen Positive A C. difficile Interpret SEE NOTE 12/24/20 12/24/20 06:15 06:15 WBC 13.0 H RBC 2.93 L Hgb 8.5 L Hct 27.8 L MCV 94.9 MCH 29.0 MCHC 30.6 L RDW 16.7 H Plt Count 295 MPV 8.8 L Immature Gran % (Auto) Neut % (Auto) Lymph % (Auto) [place] % (Auto) Eos % (Auto) Baso % (Auto) Lymph # (Auto) [place] # (Auto) Eos # (Auto) Baso # (Auto) Abs Immat Gran (auto) Absolute Neuts (auto) Absolute Nucleated RBC 0.000 Nucleated RBC % (auto) 0.0 Sodium 140 Potassium 3.1 L Chloride 104 Carbon Dioxide 22 Anion Gap 17 BUN 10 Creatinine 1.18 Estim Creat Clear Calc 68.8 Estimated GFR 59 Random Glucose 97 Calcium 7.6 L C. difficile Toxin A&B C. difficile Antigen C. difficile Interpret Microbiology Microbiology Results: Microbiology 12/17/20 11:07 Blood - Venous Blood Culture - Final No growth after 5 days. 12/17/20 11:06 Blood - Venous Blood Culture - Final No growth after 5 days. 12/18/20 Unknown Scrotum Gram Stain - Final 12/18/20 Unknown Scrotum Routine Culture - Final No growth after 2 days 12/17/20 Unknown Urine [place] Urine Culture - Final Escherichia coli Physical Exam Vital Signs: Vital Signs: Last Vital Signs Temp 97.4 F 12/24/20 08:00 Pulse 64 12/24/20 08:00 Resp 18 12/24/20 08:00 BP 106/45 L 12/24/20 08:00 Pulse Ox 97 12/24/20 08:00 Body Mass Index 30.9 Const: General: cooperative HENMT: Head: Yes normal to inspection Resp: Effort & Inspection: normal respiratory effort Cardio: Rate: regular rate Rhythm: regular rhythm GI: Palpation (GI): Soft to palpation and nontender : Male General Exam: Yes edema and No erythema Penis: edematous and not erythematous Skin: General skin exam: no rashes or lesions noted Assessment and Plan Assessment and plan (1) Cellulitis of scrotum: Status: Acute Assessment and Plan: po Doxycycline for one week (2) C. difficile colitis: Problem details: stable Status: Acute Assessment and Plan: IV Flagyl and po Vancomycin for 10 days (3) Scrotal abscess: Problem details: Drained November 2020 Status: Acute Time Spent With Patient Time: Total time spent is greater than 50% in coordination of care (as documented) at patient's floor/unit and/or counseling patient: Time with patient: 15 - 24 minutes
[2020-12-24] MEDS: Acetaminophen 325 MG TABLET 650 MG PO (15:28)
[2020-12-24 15:35] VITALS: BMI 30.9
--- NOTE | 2020-12-24 15:38 | MHC.CLN ---
RE: CONSULT PT RECEIVING ENSURE BID TO INCREASE KCALS RECOMMEND ADDING MADDIE TO PROMOTE WOUND HEALING PO INTAKE 50% AVG SEE ALSO CLINICAL NUTRITION ASSESSMENT FOLLOWING
[2020-12-24 15:50] VITALS: BP 118/49; PULSE 96; RESP 18; TEMP 36.2; O2SAT 95
--- NOTE | 2020-12-24 17:18 | P.CONWO_ITS ---
History of Present Illness Data of Consult Service Date: 12/24/20 Requesting physician: Kareem Purcell Primary Care Provider: Shon Brown MD [facility] Reason for consult: right buttock wound 80-year-old [facility] resident admitted on December 17 for scrotal cellulitis and penile abscess. On antibiotics. Followed by infectious disease. Had and I+D. Reports that he is minimally walking at facility. Carries a history of diabetes by documentation. [facility] Medical History (Updated 12/24/20 @ 17:24 by CRISTOBAL Meza) Atrial fibrillation Benign prostate hyperplasia C. difficile colitis CHF (congestive heart failure) CKD (chronic kidney disease) stage 3, GFR 30-59 ml/min Hypertension Left bundle branch block Osteoarthritis Spinal stenosis Type 2 diabetes mellitus Urine retention Family History Other No family history of cardiovascular disease Family history: reviewed and not pertinent Surgical History H/O spinal fusion History of ligation of vein Social History Household Members: None Housing: Jail Do you presently have visiting nurse or other home services: No Unable to assess alcohol history related to: Unknown Alcohol intake: never Smoking Status: Unknown if ever smoked Smoked in Last 30 Days: No Use of substances other than those prescribed or required for medical reasons: Unknown Currently Displaying Signs/Symptoms of Drug Intoxication Withdrawal: No Advance Directives: Yes Advance Directives on File: Yes Advance Directives Date on File: 12/17/20 Do you have thoughts of harming others: None Do you have a plan to hurt others: No Plan Recently lost weight without trying: Unsure service: Yes Current occupational status: retired Meds Allergies Allergy/AdvReac Type Severity Reaction Status Date / Time Morphine AdvReac Intermediate vomiting Uncoded 12/17/20 10:43 Active Medications: Current Medications Generic Name Dose Route Start Last Admin Trade Name Freq PRN Reason Stop Dose Admin Acetaminophen 650 mg 12/17/20 17:28 12/24/20 15:28 Acetaminophen 325 Mg Tablet PO 650 mg Q6H PRN Administration Pain, Mild (Pain Scale 1-3) Apixaban 5 mg 12/21/20 21:00 12/24/20 08:47 Apixaban 5 Mg Tablet PO 5 mg BID ROXANN Administration Bisacodyl 10 mg 12/17/20 17:35 Bisacodyl 10 Mg Supp.Rect [place] DAILY PRN Constipation Cyanocobalamin 1,000 mcg 12/18/20 09:00 12/24/20 08:47 Cyanocobalamin (Vitamin B-12) 1,000 Mcg Tablet PO 1,000 mcg DAILY ROXANN Administration Docusate Sodium 100 mg 12/17/20 17:28 Docusate Sodium 100 Mg Capsule PO DAILY PRN Constipation Doxycycline Hyclate 100 mg 12/24/20 21:00 Doxycycline Hyclate 100 Mg Tablet PO Q12H [facility] Escitalopram Oxalate 10 mg 12/18/20 09:00 12/24/20 08:47 Escitalopram Oxalate 10 Mg Tablet PO 10 mg DAILY [facility] Administration Ferrous Sulfate 324 mg 12/19/20 10:45 12/23/20 10:21 Ferrous Sulfate 324 Mg Tablet. PO 324 mg Q48H [facility] Administration Fluticasone Propionate 1 spray 12/18/20 09:00 12/24/20 09:01 Fluticasone Propionate Nasal 16 Gm [place] NOSTRIL-B 1 spray DAILY [facility] Administration Metronidazole 500 mg in 100 mls @ 100 mls/hr 12/24/20 12:00 12/24/20 15:06 Flagyl IV Infused Q8H [facility] Infusion Insulin Human Lispro 0 unit 12/17/20 17:28 12/24/20 15:29 Insulin Lispro 100 Unit/Ml 3 Ml Vial SUBCUT Not Given QIDACHS [facility] Protocol Magnesium Hydroxide 30 ml 12/17/20 17:35 Milk Of Magnesia 30 Ml Oral.Susp PO BEDTIME PRN Constipation Multivitamins/Vitamin C 1 tab 12/18/20 09:00 12/24/20 08:47 Multivitamin Tablet PO 1 tab DAILY [facility] Administration Ondansetron HCl 4 mg 12/17/20 17:28 12/18/20 21:20 Ondansetron Hcl 4 Mg/2 Ml Vial IVPUSH 4 mg Q8H PRN Administration Nausea and Vomiting Pharmacy Consult 1 each 12/17/20 15:13 Consult Rx Perform Med Rec MISCELLANE ONCE PRN Consult order Potassium Chloride 20 meq 12/18/20 09:00 12/24/20 08:47 Potassium Chloride Er 20 Meq Tab.Er.Prt PO 20 meq DAILY [facility] Administration Sodium Chloride 3 ml 12/18/20 00:00 12/24/20 15:28 0.9 % Sodium Chloride Flush 3 Ml Syringe IVFLUSH 3 ml QSHIFT [facility] Administration Vancomycin HCl 125 mg 12/24/20 23:30 Vancomycin Hcl Oral Solution 125 Mg/5 Ml Soln.Recon PO Q6H [facility] Home Medications Medication Instructions Recorded Confirmed Last Taken Type acetaminophen 650 mg PO Q4H PRN 12/17/20 12/17/20 12/17/20 History apixaban 5 mg PO BID 12/17/20 12/17/20 12/17/20 History 1 bisacodyl 10 mg [place] DAILY PRN 12/17/20 12/17/20 12/05/20 History ceftriaxone 1 g IM DAILY 12/17/20 12/17/20 12/17/20 History cyanocobalamin (vitamin B-12) 1,000 mcg PO DAILY 12/17/20 12/17/20 12/17/20 History escitalopram oxalate 10 mg PO DAILY 12/17/20 12/17/20 12/17/20 History fluticasone propionate 1 spray INTRANASAL DAILY 12/17/20 12/17/20 12/17/20 History furosemide 40 mg PO DAILY 12/17/20 12/17/20 12/17/20 History loperamide 2 mg PO Q3H PRN 12/17/20 12/17/20 12/10/20 History magnesium hydroxide [Milk of 30 ml PO BEDTIME PRN 12/17/20 12/17/20 12/04/20 History Magnesia] multivitamin 1 tab PO DAILY 12/17/20 12/17/20 12/17/20 History oxycodone 10 mg PO BID 12/17/20 12/17/20 12/17/20 History oxycodone 10 mg PO Q6H PRN 12/17/20 12/17/20 Unknown History potassium chloride 20 meq PO DAILY 12/17/20 12/17/20 12/17/20 History sodium phosphates [Fleet Enema] 118 ml [place] DAILY PRN 12/17/20 12/17/20 Unknown History Physical Exam Vital Signs and Narrative: Vital Signs: Last Vital Signs Temp 97.2 F 12/24/20 15:50 Pulse 96 12/24/20 15:50 Resp 18 12/24/20 15:50 BP 118/49 L 12/24/20 15:50 Pulse Ox 95 12/24/20 15:50 Body Mass Index 30.9 Some discoloration on the left buttock but fully blanching Coccygeal slit is about 0.3 cm in length. Punctate 0.7 cm ulcer on the right buttock is probably not a pressure ulcer because it is not over a bony prominence and there is full blanchability around it. No periwound erythema. Also, no streaking or warmth to suggest cellulitis. Results Labs CBC and Chem 7: 12/24/20 06:15 12/24/20 06:15 Labs: Laboratory Results - last 24 hr 12/23/20 12/23/20 12/23/20 21:03 23:38 23:38 MCV 94.2 MCH 28.9 MCHC 30.7 L RDW 16.9 H Plt Count 295 MPV 8.9 L Immature Gran % (Auto) 0.7 H Neut % (Auto) 83.2 H Lymph % (Auto) 8.7 L [place] % (Auto) 6.5 Eos % (Auto) 0.6 Baso % (Auto) 0.3 Lymph # (Auto) 1.3 [place] # (Auto) 1.0 Eos # (Auto) 0.1 Baso # (Auto) 0.0 Abs Immat Gran (auto) 0.11 H Absolute Neuts (auto) 12.3 H Absolute Nucleated RBC 0.000 Nucleated RBC % (auto) 0.0 Anion Gap 14 Estim Creat Clear Calc 64.9 Estimated GFR 55 Random Glucose 108 Calcium 7.6 L D C. difficile Toxin A&B Positive A C. difficile Antigen Positive A C. difficile Interpret SEE NOTE 12/24/20 12/24/20 06:15 06:15 MCV 94.9 MCH 29.0 MCHC 30.6 L RDW 16.7 H Plt Count 295 MPV 8.8 L Immature Gran % (Auto) Neut % (Auto) Lymph % (Auto) [place] % (Auto) Eos % (Auto) Baso % (Auto) Lymph # (Auto) [place] # (Auto) Eos # (Auto) Baso # (Auto) Abs Immat Gran (auto) Absolute Neuts (auto) Absolute Nucleated RBC 0.000 Nucleated RBC % (auto) 0.0 Anion Gap 17 Estim Creat Clear Calc 68.8 Estimated GFR 59 Random Glucose 97 Calcium 7.6 L C. difficile Toxin A&B C. difficile Antigen C. difficile Interpret Assessment and Plan (1) Carbuncle of gluteal region: Start date: 12/24/20 Problem details: Open wound right buttock not consistent with pressure Status: Acute Zinc oxide for protection to this right buttock ulcer not pressure related. Keep the coccyx dry for slit like opening. No convincing evidence of pressure injury. Thank you for allowing us to participate in year patient's care.
[2020-12-24 18:00] VITALS: O2SAT 95
[2020-12-24 23:21] VITALS: BP 116/48; PULSE 65; RESP 18; TEMP 36.7; O2SAT 95
[2020-12-25] MEDS: vancomycin HCL Oral Solution 125 MG/5 ML SOLN.RECON PO ×5 (01:12→23:32)
[2020-12-25] MEDS: metroNIDAZOLE/NS 500 MG/100 ML PIGGYBACK 100 MG IV ×3 (05:14→20:30)
[2020-12-25 07:23] LABS: Hematocrit 26.8 % (42-52); Hemoglobin 8.4 g/dl (14.0-18.0); Mean Corpuscular HGB Conc 31.3 g/dl (31.0-36.0); Mean Corpuscular Hemoglobin 29.6 pg (27.0-33.0); Mean Corpuscular Volume 94.4 fL (80-98); Mean Platelet Volume 8.8 fL (9.4-12.4); Platelet Count 302 X10*3/uL (160-400); Red Blood Count 2.84 X10*6/uL (4.60-5.80); Red Cell Distribution Width 16.8 % (11.0-16.0); White Blood Count 8.6 X10*3/uL (4.8-10.8)
[2020-12-25 07:51] LABS: Anion Gap 11 (12-20); Blood Urea Nitrogen 15 mg/dL (9-16); Calcium 7.9 mg/dL (8.4-10.2); Carbon Dioxide 26 mmol/L (22-29); Chloride 107 mmol/L (96-108); Estimated Glomerular Filt Rate > 60; Glucose Random 100 mg/dL (60-115); Potassium 3.1 mmol/L (3.3-5.1); Sodium 141 mmol/L (135-145)
[2020-12-25 08:00] VITALS: BP 113/59; PULSE 66; RESP 18; TEMP 36.8; O2SAT 97
[2020-12-25] MEDS: Ferrous Sulfate 324 MG TABLET.DR PO (09:04)
[2020-12-25] MEDS: Cyanocobalamin (Vitamin B-12) 1,000 MCG TABLET 1000 MCG PO (09:04)
[2020-12-25] MEDS: Multivitamin TABLET 1 TAB PO (09:04)
[2020-12-25] MEDS: Escitalopram Oxalate 10 MG TABLET PO (09:04)
[2020-12-25] MEDS: Potassium Chloride ER 20 MEQ TAB.ER.PRT PO (09:04)
[2020-12-25] MEDS: Apixaban 5 MG TABLET PO ×2 (09:04→20:31)
[2020-12-25] MEDS: 0.9 % Sodium Chloride Flush 3 ML SYRINGE IVFLUSH ×2 (09:05→17:12)
--- NOTE | 2020-12-25 11:29 | HO.PM.IMPN ---
Subjective Subjective Date of Service: 12/25/20 Interval History: The patient was seen and evaluated this morning Laying in bed, complaining of lower abdominal pain with diarrhea, had multiple episodes of diarrhea overnight Scrotal wound improved significantly Denies any fever, chills or shortness of breath No reported other overnight events. Systemic review: No fever, chills or weakness No chest pain, palpitation No shortness of breath or coughing Lower abdominal pain, nausea or vomiting No urinary symptoms Wound area looks stable with no drainage noted Physical Exam Vital Signs: Vital Signs: Last Vital Signs Temp 98.3 F 12/25/20 08:00 Pulse 66 12/25/20 08:00 Resp 18 12/25/20 08:00 BP 113/59 L 12/25/20 08:00 Pulse Ox 97 12/25/20 08:00 Body Mass Index 30.9 Const: Other: Constitutional : Alert,, not in distress Neck : Normal inspection, Supple Cardiovascular : RRR, S1 S2, no lower extremity edema Respiratory : Good bilateral air entry, no crackles, wheezes or rhonchi Gastrointestinal: soft, lax, Normal bowel sounds, Non tender Skin : Warm/Dry, No rash Genitourinary: Jacobs in place. erythema and induration of penis/suprapubic area improved. scrotum with packing Neurological : Alert & oriented , No focal deficit Objective Data Current Medications Generic Name Dose Route Start Last Admin Trade Name Freq PRN Reason Stop Dose Admin Acetaminophen 650 mg 12/17/20 17:28 12/24/20 15:28 Acetaminophen 325 Mg Tablet PO 650 mg Q6H PRN Administration Pain, Mild (Pain Scale 1-3) Apixaban 5 mg 12/21/20 21:00 12/25/20 09:04 Apixaban 5 Mg Tablet PO 5 mg BID ROXANN Administration Bisacodyl 10 mg 12/17/20 17:35 Bisacodyl 10 Mg Supp.Rect [place] DAILY PRN Constipation Cyanocobalamin 1,000 mcg 12/18/20 09:00 12/25/20 09:04 Cyanocobalamin (Vitamin B-12) 1,000 Mcg Tablet PO 1,000 mcg DAILY ROXANN Administration Docusate Sodium 100 mg 12/17/20 17:28 Docusate Sodium 100 Mg Capsule PO DAILY PRN Constipation Doxycycline Hyclate 100 mg 12/24/20 21:00 12/25/20 09:04 Doxycycline Hyclate 100 Mg Tablet PO 100 mg Q12H ROXANN Administration Escitalopram Oxalate 10 mg 12/18/20 09:00 12/25/20 09:04 Escitalopram Oxalate 10 Mg Tablet PO 10 mg DAILY ROXANN Administration Ferrous Sulfate 324 mg 12/19/20 10:45 12/25/20 09:04 Ferrous Sulfate 324 Mg Tablet. PO 324 mg Q48H ROXANN Administration Fluticasone Propionate 1 spray 12/18/20 09:00 12/24/20 09:01 Fluticasone Propionate Nasal 16 Gm [place] NOSTRIL-B 1 spray DAILY [facility] Administration Hydrocortisone 1 appl 12/25/20 10:39 Hydrocortisone 1 % Ointment 28.35 Gm Tube TOPICAL BID [facility] Protocol Metronidazole 500 mg in 100 mls @ 100 mls/hr 12/24/20 12:00 12/25/20 06:38 Flagyl IV Infused Q8H [facility] Infusion Insulin Human Lispro 0 unit 12/17/20 17:28 12/25/20 08:54 Insulin Lispro 100 Unit/Ml 3 Ml Vial SUBCUT Not Given QIDACHS [facility] Protocol Magnesium Hydroxide 30 ml 12/17/20 17:35 Milk Of Magnesia 30 Ml Oral.Susp PO BEDTIME PRN Constipation Multivitamins/Vitamin C 1 tab 12/18/20 09:00 12/25/20 09:04 Multivitamin Tablet PO 1 tab DAILY [facility] Administration Ondansetron HCl 4 mg 12/17/20 17:28 12/18/20 21:20 Ondansetron Hcl 4 Mg/2 Ml Vial IVPUSH 4 mg Q8H PRN Administration Nausea and Vomiting Pharmacy Consult 1 each 12/17/20 15:13 Consult Rx Perform Med Rec MISCELLANE ONCE PRN Consult order Potassium Chloride 20 meq 12/18/20 09:00 12/25/20 09:04 Potassium Chloride Er 20 Meq Tab.Er.Prt PO 20 meq DAILY [facility] Administration Sodium Chloride 3 ml 12/18/20 00:00 12/25/20 09:05 0.9 % Sodium Chloride Flush 3 Ml Syringe IVFLUSH 3 ml QSHIFT [facility] Administration Vancomycin HCl 125 mg 12/24/20 23:30 12/25/20 05:14 Vancomycin Hcl Oral Solution 125 Mg/5 Ml Soln.Recon PO 125 mg Q6H [facility] Administration Labs CBC & Chem 7: 12/25/20 07:09 12/25/20 07:09 Microbiology Microbiology Results: Microbiology 12/17/20 11:07 Blood - Venous Blood Culture - Final No growth after 5 days. 12/17/20 11:06 Blood - Venous Blood Culture - Final No growth after 5 days. 12/18/20 Unknown Scrotum Gram Stain - Final 12/18/20 Unknown Scrotum Routine Culture - Final No growth after 2 days 12/17/20 Unknown Urine [place] Urine Culture - Final Escherichia coli Assessment and Plan (1) Abscess of penis: Status: Acute (2) Cellulitis of scrotum: Status: Acute (3) Atypical chest pain: Status: Acute Assessment and Plan: hospital d#8 80yo M resident of [facility] with PMHx DM2, AF on apixaban, CHF admitted for worsening scrotal/penile cellulitis, failed outpatient antibiotics and developed penile abscess # C diff infection Has ongoing diarrhea positive toxin test Continue oral vancomycin On IV Flagyl as well Hold on images with coronal Monitors CBC and clinical picture # penile abscess # scrotal cellulitis Improving use oxycodone as needed as well no evidence of Medina's gangrene I+D by Dr Bradshaw (Urology) Discontinue vancomycin + piperacillin/tazobactam Continue doxycycline and Flagyl D 8 antibiotics ID input appreciated # UTI Cx E.Coi Finish total 5 days of antibiotics # JAZLYN, mild Improving hold furosemide, recheck BMP tomorrow # Acute on chronic anemia minimal blood loss reported with hematuria Improved to 8 day Resume Eliquis monitor H&H # hypoK To give replacement continue to monitor BMP # atypical chest pain resolved, was likely gastritis # JOSE replete Fe. already on B12 # AF resume apixaban # CHF not decompensated. hold furosemide as above # DM2, A1c 6.1 correction-dose lispro # depression continue escitalopram # VTE ppx apixaban # dispo Plan to [facility] when stable
[2020-12-25] MEDS: Hydrocortisone 1 % Ointment 28.35 GM TUBE 1 APPL TOPICAL ×2 (12:56→22:33)
[2020-12-25 15:26] VITALS: BP 114/58; PULSE 73; RESP 16; TEMP 36.4; O2SAT 97
[2020-12-25 18:00] VITALS: O2SAT 97
--- NOTE | 2020-12-25 18:30 | PC.NURSE ---
Patient c/o itchiness around scrotal area. Ointment ordered and applied. Patient having frequent bouts of diarrhea. Appetite is good, eating at least 75% of all meals. BS overactive in all quads. Wound care to pressure ulcer on coccyx.
[2020-12-25 20:20] VITALS: BP 116/45; PULSE 66; RESP 16; TEMP 36.4; O2SAT 97
[2020-12-25 23:28] VITALS: BP 124/51; PULSE 72; RESP 16; TEMP 36.7; O2SAT 97
[2020-12-26] MEDS: 0.9 % Sodium Chloride Flush 3 ML SYRINGE IVFLUSH ×3 (01:11→17:20)
[2020-12-26 04:00] VITALS: BP 96/46; PULSE 62; RESP 18; TEMP 36.6; O2SAT 98
[2020-12-26] MEDS: metroNIDAZOLE/NS 500 MG/100 ML PIGGYBACK 100 MG IV ×3 (04:57→20:45)
[2020-12-26] MEDS: vancomycin HCL Oral Solution 125 MG/5 ML SOLN.RECON PO ×3 (04:57→17:18)
[2020-12-26 07:38] LABS: Anion Gap 11 (12-20); Blood Urea Nitrogen 14 mg/dL (9-16); Calcium 7.8 mg/dL (8.4-10.2); Carbon Dioxide 25 mmol/L (22-29); Chloride 107 mmol/L (96-108); Estimated Glomerular Filt Rate > 60; Glucose Random 126 mg/dL (60-115); Potassium 3.3 mmol/L (3.3-5.1); Sodium 140 mmol/L (135-145)
[2020-12-26 08:00] VITALS: BP 109/50; PULSE 71; RESP 18; TEMP 36.4; O2SAT 96
[2020-12-26] MEDS: Multivitamin TABLET 1 TAB PO (09:40)
[2020-12-26] MEDS: Apixaban 5 MG TABLET PO ×2 (09:40→20:45)
[2020-12-26] MEDS: Escitalopram Oxalate 10 MG TABLET PO (09:40)
[2020-12-26] MEDS: Cyanocobalamin (Vitamin B-12) 1,000 MCG TABLET 1000 MCG PO (09:40)
[2020-12-26] MEDS: Hydrocortisone 1 % Ointment 28.35 GM TUBE 1 APPL TOPICAL ×2 (09:41→20:46)
[2020-12-26] MEDS: Lactated Ringers 1,000 ML 80 ML IVCONT ×2 (09:41→20:46)
[2020-12-26] MEDS: Potassium Chloride ER 20 MEQ TAB.ER.PRT PO (09:42)
[2020-12-26 12:00] VITALS: RESP 16
--- NOTE | 2020-12-26 12:19 | P.PNIM_ITS ---
Subjective Subjective Date of Service: 12/26/20 Interval History: The patient was seen and evaluated this morning Laying in bed, lower abdominal pain diarrhea improving Scrotal wound improved significantly Denies any fever, chills or shortness of breath No reported other overnight events. Systemic review: No fever, chills or weakness No chest pain, palpitation No shortness of breath or coughing Lower abdominal pain, nausea or vomiting No urinary symptoms Wound area looks stable with no drainage noted Physical Exam Vital Signs: Vital Signs: Last Vital Signs Temp 97.6 F 12/26/20 08:00 Pulse 71 12/26/20 08:00 Resp 18 12/26/20 08:00 BP 109/50 L 12/26/20 08:00 Pulse Ox 96 12/26/20 08:00 Body Mass Index 30.9 Const: Other: Constitutional : Alert,, not in distress Neck : Normal inspection, Supple Cardiovascular : RRR, S1 S2, no lower extremity edema Respiratory : Good bilateral air entry, no crackles, wheezes or rhonchi Gastrointestinal: soft, lax, Normal bowel sounds, Non tender Skin : Warm/Dry, No rash Genitourinary: Jacobs in place. erythema and induration of penis/suprapubic area improved. scrotum with packing Neurological : Alert & oriented , No focal deficit Objective Data Current Medications Generic Name Dose Route Start Last Admin Trade Name Freq PRN Reason Stop Dose Admin Acetaminophen 650 mg 12/17/20 17:28 12/24/20 15:28 Acetaminophen 325 Mg Tablet PO 650 mg Q6H PRN Administration Pain, Mild (Pain Scale 1-3) Apixaban 5 mg 12/21/20 21:00 12/26/20 09:40 Apixaban 5 Mg Tablet PO 5 mg BID ROXANN Administration Bisacodyl 10 mg 12/17/20 17:35 Bisacodyl [address] DAILY PRN Constipation Cyanocobalamin 1,000 mcg 12/18/20 09:00 12/26/20 09:40 Cyanocobalamin (Vitamin B-12) 1,000 Mcg Tablet PO 1,000 mcg DAILY ROXANN Administration Docusate Sodium 100 mg 12/17/20 17:28 Docusate Sodium 100 Mg Capsule PO DAILY PRN Constipation Doxycycline Hyclate 100 mg 12/24/20 21:00 12/26/20 09:40 Doxycycline Hyclate 100 Mg Tablet PO 100 mg Q12H ROXANN Administration Escitalopram Oxalate 10 mg 12/18/20 09:00 12/26/20 09:40 Escitalopram Oxalate 10 Mg Tablet PO 10 mg DAILY ROXANN Administration Ferrous Sulfate 324 mg 12/19/20 10:45 12/25/20 09:04 Ferrous Sulfate 324 Mg Tablet. PO 324 mg Q48H ROXANN Administration Fluticasone Propionate 1 spray 12/18/20 09:00 12/26/20 09:41 Fluticasone Propionate Nasal 16 Gm [place] NOSTRIL-B Not Given DAILY ROXANN Hydrocortisone 1 appl 12/25/20 10:39 12/26/20 09:41 Hydrocortisone 1 % Ointment 28.35 Gm Tube TOPICAL 1 appl BID ROXANN Administration Protocol Metronidazole 500 mg in 100 mls @ 100 mls/hr 12/24/20 12:00 12/26/20 06:12 Flagyl IV Infused Q8H ROXANN Infusion Lactated Ringer's 1,000 mls @ 80 mls/hr 12/26/20 08:30 12/26/20 09:41 Lr IVCONT 80 mls/hr .[id number] ROXANN Administration Insulin Human Lispro 0 unit 12/17/20 17:28 12/26/20 09:13 Insulin Lispro 100 Unit/Ml 3 Ml Vial SUBCUT Not Given QIDACHS [facility] Protocol Magnesium Hydroxide 30 ml 12/17/20 17:35 Milk Of Magnesia 30 Ml Oral.Susp PO BEDTIME PRN Constipation Multivitamins/Vitamin C 1 tab 12/18/20 09:00 12/26/20 09:40 Multivitamin Tablet PO 1 tab DAILY ROXANN Administration Ondansetron HCl 4 mg 12/17/20 17:28 12/18/20 21:20 Ondansetron Hcl 4 Mg/2 Ml Vial IVPUSH 4 mg Q8H PRN Administration Nausea and Vomiting Pharmacy Consult 1 each 12/17/20 15:13 Consult Rx Perform Med Rec MISCELLANE ONCE PRN Consult order Potassium Chloride 20 meq 12/18/20 09:00 12/26/20 09:42 Potassium Chloride Er 20 Meq Tab.Er.Prt PO 20 meq DAILY ROXANN Administration Sodium Chloride 3 ml 12/18/20 00:00 12/26/20 09:41 0.9 % Sodium Chloride Flush 3 Ml Syringe IVFLUSH 3 ml QSHIFT ROXANN Administration Vancomycin HCl 125 mg 12/24/20 23:30 12/26/20 04:57 Vancomycin Hcl Oral Solution 125 Mg/5 Ml Soln.Recon PO 125 mg Q6H ROXANN Administration Labs CBC & Chem 7: 12/25/20 07:09 12/26/20 06:38 Microbiology Microbiology Results: Microbiology 12/17/20 11:07 Blood - Venous Blood Culture - Final No growth after 5 days. 12/17/20 11:06 Blood - Venous Blood Culture - Final No growth after 5 days. 12/18/20 Unknown Scrotum Gram Stain - Final 12/18/20 Unknown Scrotum Routine Culture - Final No growth after 2 days 12/17/20 Unknown Urine [place] Urine Culture - Final Escherichia coli Assessment and Plan (1) Abscess of penis: Status: Acute (2) Cellulitis of scrotum: Status: Acute (3) Atypical chest pain: Status: Acute Assessment and Plan: hospital d#8 80yo M resident of [facility] with PMHx DM2, AF on apixaban, CHF admitted for worsening scrotal/penile cellulitis, failed outpatient antibiotics and developed penile abscess # C diff infection Has ongoing diarrhea positive toxin test Continue oral vancomycin . Need longer course for being actively on antibiotics for infection On IV Flagyl as well Hold on images with coronal Monitors CBC and clinical picture # hypotension Blood pressure noted to be so this morning Secondary to fluid loss from diarrhea Start gentle hydration # penile abscess # scrotal cellulitis Improving use oxycodone as needed as well no evidence of Medina's gangrene I+D by Dr Bradshaw (Urology) Discontinue vancomycin + piperacillin/tazobactam Continue doxycycline and Flagyl D 9 antibiotics ID input appreciated # UTI Cx E.Coi Finish total 5 days of antibiotics # JAZLYN, mild Improved hold furosemide, recheck BMP tomorrow # Acute on chronic anemia minimal blood loss reported with hematuria Stable Continue Eliquis monitor H&H # hypoK To give replacement continue to monitor BMP # atypical chest pain resolved, was likely gastritis # JOSE replete Fe. already on B12 # AF resume apixaban # CHF not decompensated. hold furosemide as above # DM2, A1c 6.1 correction-dose lispro # depression continue escitalopram # VTE ppx apixaban # dispo Plan to DC [facility] when stable
[2020-12-26 15:40] VITALS: BP 118/54; PULSE 68; RESP 16; TEMP 37; O2SAT 95
[2020-12-26 19:04] VITALS: BP 120/48; PULSE 75; RESP 18; TEMP 36.4; O2SAT 98
[2020-12-27] VITALS (8 sets, daily range): BP systolic 96–150; BP diastolic 49–78; PULSE 63–82; RESP 16–20; TEMP 35.7–37.1; O2SAT 95–98
[2020-12-27] MEDS: vancomycin HCL Oral Solution 125 MG/5 ML SOLN.RECON PO ×5 (00:08→22:54)
[2020-12-27] MEDS: metroNIDAZOLE/NS 500 MG/100 ML PIGGYBACK 100 MG IV ×3 (04:26→19:59)
[2020-12-27] MEDS: Lactated Ringers 1,000 ML 80 ML IVCONT ×2 (06:42→07:38)
[2020-12-27] MEDS: Potassium Chloride ER 20 MEQ TAB.ER.PRT PO (07:39)
[2020-12-27] MEDS: Multivitamin TABLET 1 TAB PO (07:39)
[2020-12-27] MEDS: Escitalopram Oxalate 10 MG TABLET PO (07:39)
[2020-12-27] MEDS: Apixaban 5 MG TABLET PO ×2 (07:40→19:59)
[2020-12-27] MEDS: Cyanocobalamin (Vitamin B-12) 1,000 MCG TABLET 1000 MCG PO (07:40)
[2020-12-27] MEDS: Hydrocortisone 1 % Ointment 28.35 GM TUBE 1 APPL TOPICAL ×2 (07:40→20:05)
[2020-12-27 08:39] LABS: INTERNATIONAL NORM RATIO 1.5 (0.9-1.1); Prothrombin Time 17.4 SEC (10.8-13.0)
[2020-12-27 08:58] LABS: Anion Gap 13 (12-20); Blood Urea Nitrogen 15 mg/dL (9-16); Carbon Dioxide 26 mmol/L (22-29); Chloride 107 mmol/L (96-108); Creatinine Clr Calc Pharmacy 88.3; Estimated Glomerular Filt Rate > 60; Glucose Random 98 mg/dL (60-115); Potassium 3.6 mmol/L (3.3-5.1); Sodium 142 mmol/L (135-145)
[2020-12-27] MEDS: Ferrous Sulfate 324 MG TABLET.DR PO (09:41)
--- NOTE | 2020-12-27 11:26 | MHC.CM.PN ---
EMR REVIEWED, PER HOSPITALIST PT JANUARY D/C TOMORROW 12/28/20, CM TO NOTIFY [facility].
--- NOTE | 2020-12-27 13:31 | P.PNIM_ITS ---
Subjective Subjective Date of Service: 12/27/20 Interval History: The patient was seen and evaluated this morning Laying in bed, lower abdominal pain diarrhea improving Scrotal wound improved significantly Denies any fever, chills or shortness of breath No reported other overnight events. Systemic review: No fever, chills or weakness No chest pain, palpitation No shortness of breath or coughing Lower abdominal pain, nausea or vomiting No urinary symptoms Wound area looks stable with no drainage noted Physical Exam Vital Signs: Vital Signs: Last Vital Signs Temp 97.9 F 12/27/20 11:58 Pulse 63 12/27/20 11:58 Resp 17 12/27/20 11:58 BP 124/62 12/27/20 11:58 Pulse Ox 96 12/27/20 11:58 Body Mass Index 30.9 Const: Other: Constitutional : Alert,, not in distress Neck : Normal inspection, Supple Cardiovascular : RRR, S1 S2, no lower extremity edema Respiratory : Good bilateral air entry, no crackles, wheezes or rhonchi Gastrointestinal: soft, lax, Normal bowel sounds, Non tender Skin : Warm/Dry, No rash Genitourinary: Jacobs in place. erythema and induration of penis/suprapubic area improved. scrotum with packing Neurological : Alert & oriented , No focal deficit Objective Data Current Medications Generic Name Dose Route Start Last Admin Trade Name Freq PRN Reason Stop Dose Admin Acetaminophen 650 mg 12/17/20 17:28 12/24/20 15:28 Acetaminophen 325 Mg Tablet PO 650 mg Q6H PRN Administration Pain, Mild (Pain Scale 1-3) Apixaban 5 mg 12/21/20 21:00 12/27/20 07:40 Apixaban 5 Mg Tablet PO 5 mg BID ROXANN Administration Bisacodyl 10 mg 12/17/20 17:35 Bisacodyl 10 Mg Supp.Rect [place] DAILY PRN Constipation Cyanocobalamin 1,000 mcg 12/18/20 09:00 12/27/20 07:40 Cyanocobalamin (Vitamin B-12) 1,000 Mcg Tablet PO 1,000 mcg DAILY ROXANN Administration Docusate Sodium 100 mg 12/17/20 17:28 Docusate Sodium 100 Mg Capsule PO DAILY PRN Constipation Doxycycline Hyclate 100 mg 12/24/20 21:00 12/27/20 07:39 Doxycycline Hyclate 100 Mg Tablet PO 100 mg Q12H ROXANN Administration Escitalopram Oxalate 10 mg 12/18/20 09:00 12/27/20 07:39 Escitalopram Oxalate 10 Mg Tablet PO 10 mg DAILY ROXANN Administration Ferrous Sulfate 324 mg 12/19/20 10:45 12/27/20 09:41 Ferrous Sulfate 324 Mg Tablet. PO 324 mg Q48H ROXANN Administration Fluticasone Propionate 1 spray 12/18/20 09:00 12/27/20 07:40 Fluticasone Propionate Nasal 16 Gm [place] NOSTRIL-B Not Given DAILY ROXANN Hydrocortisone 1 appl 12/25/20 10:39 12/27/20 07:40 Hydrocortisone 1 % Ointment 28.35 Gm Tube TOPICAL 1 appl BID [facility] Administration Protocol Metronidazole 500 mg in 100 mls @ 100 mls/hr 12/24/20 12:00 12/27/20 05:57 Flagyl IV Infused Q8H [facility] Infusion Insulin Human Lispro 0 unit 12/17/20 17:28 12/27/20 11:36 Insulin Lispro 100 Unit/Ml 3 Ml Vial SUBCUT Not Given QIDACHS [facility] Protocol Magnesium Hydroxide 30 ml 12/17/20 17:35 Milk Of Magnesia 30 Ml Oral.Susp PO BEDTIME PRN Constipation Multivitamins/Vitamin C 1 tab 12/18/20 09:00 12/27/20 07:39 Multivitamin Tablet PO 1 tab DAILY [facility] Administration Ondansetron HCl 4 mg 12/17/20 17:28 12/18/20 21:20 Ondansetron Hcl 4 Mg/2 Ml Vial IVPUSH 4 mg Q8H PRN Administration Nausea and Vomiting Pharmacy Consult 1 each 12/17/20 15:13 Consult Rx Perform Med Rec MISCELLANE ONCE PRN Consult order Potassium Chloride 20 meq 12/18/20 09:00 12/27/20 07:39 Potassium Chloride Er 20 Meq Tab.Er.Prt PO 20 meq DAILY [facility] Administration Sodium Chloride 3 ml 12/18/20 00:00 12/27/20 07:40 0.9 % Sodium Chloride Flush 3 Ml Syringe IVFLUSH Not Given QSHIFT [facility] Vancomycin HCl 125 mg 12/24/20 23:30 12/27/20 04:27 Vancomycin Hcl Oral Solution 125 Mg/5 Ml Soln.Recon PO 125 mg Q6H [facility] Administration Labs CBC & Chem 7: 12/25/20 07:09 12/27/20 08:00 Microbiology Microbiology Results: Microbiology 12/17/20 11:07 Blood - Venous Blood Culture - Final No growth after 5 days. 12/17/20 11:06 Blood - Venous Blood Culture - Final No growth after 5 days. 12/18/20 Unknown Scrotum Gram Stain - Final 12/18/20 Unknown Scrotum Routine Culture - Final No growth after 2 days 12/17/20 Unknown Urine [place] Urine Culture - Final Escherichia coli Assessment and Plan (1) Abscess of penis: Status: Acute (2) Cellulitis of scrotum: Status: Acute (3) Atypical chest pain: Status: Acute Assessment and Plan: hospital d#8 80yo M resident of [facility] with PMHx DM2, AF on apixaban, CHF admitted for worsening scrotal/penile cellulitis, failed outpatient antibiotics and developed penile abscess # C diff infection Has ongoing diarrhea positive toxin test Continue oral vancomycin . Need longer course for being actively on antibiotics for infection On IV Flagyl as well Hold on images with coronal Monitors CBC and clinical picture # hypotension Improved Secondary to fluid loss from diarrhea DC IVF # penile abscess # scrotal cellulitis Improving use oxycodone as needed as well no evidence of Medina's gangrene I+D by Dr Bradshaw Continue doxycycline and Flagyl D10 antibiotics ID input appreciated # UTI Cx E.Coi Finished total 5 days of antibiotics # JAZLYN, mild Improved hold furosemide, recheck BMP tomorrow # Acute on chronic anemia minimal blood loss reported with hematuria Stable Continue Eliquis monitor H&H # hypoK To give replacement continue to monitor BMP # atypical chest pain resolved, was likely gastritis # JOSE replete Fe. already on B12 # AF resume apixaban # CHF not decompensated. hold furosemide as above # DM2, A1c 6.1 correction-dose lispro # depression continue escitalopram # VTE ppx apixaban # dispo Plan to DC to [facility] when stable
--- NOTE | 2020-12-27 14:57 | MHC.CM.PN ---
CM CONTACTED NOAM THE RN COORDINATOR AT [facility] WAS NOTIFIED 2:58PM, TO NOTIFY OF PT'S ANTICIPATED D/C TOMORROW 12/28/20.
--- NOTE | 2020-12-27 15:10 | MHC.CLN ---
F/U PO INTAKE 75% AVG PT RECEIVING ENSURE BID AND MADIDE TO PROMOTE WOUND HEALING WILL INCREASE ENSURE TO TID R/T INCREASED NUTRITION RISK R/T C-DIFF AND WOUND HEALING SUPPLEMENTS WILL PROVIDE 1210KCALS, 65G PROTEIN FOLLOWING
[2020-12-27] MEDS: 0.9 % Sodium Chloride Flush 3 ML SYRINGE IVFLUSH ×2 (17:31→19:59)
[2020-12-28 03:48] VITALS: BP 140/85; PULSE 68; RESP 18; TEMP 36.8; O2SAT 96
[2020-12-28] MEDS: metroNIDAZOLE/NS 500 MG/100 ML PIGGYBACK 100 MG IV ×2 (05:22→12:04)
[2020-12-28] MEDS: vancomycin HCL Oral Solution 125 MG/5 ML SOLN.RECON PO (05:23)
[2020-12-28] MEDS: Apixaban 5 MG TABLET PO (07:41)
[2020-12-28] MEDS: Multivitamin TABLET 1 TAB PO (07:41)
[2020-12-28] MEDS: Cyanocobalamin (Vitamin B-12) 1,000 MCG TABLET 1000 MCG PO (07:41)
[2020-12-28] MEDS: 0.9 % Sodium Chloride Flush 3 ML SYRINGE IVFLUSH (07:41)
[2020-12-28] MEDS: Potassium Chloride ER 20 MEQ TAB.ER.PRT PO (07:41)
[2020-12-28] MEDS: Escitalopram Oxalate 10 MG TABLET PO (07:41)
[2020-12-28] MEDS: Hydrocortisone 1 % Ointment 28.35 GM TUBE 1 APPL TOPICAL (07:42)
[2020-12-28 07:50] VITALS: BP 135/57; PULSE 67; RESP 17; TEMP 36.5; O2SAT 100
--- NOTE | 2020-12-28 09:26 | MHC.CM.PN ---
FÁTIMA CONTACTED NOAM THE RN COORDINATOR AT [facility] 9:27AM, TO SET UP D/C TIME, PER RN COORDINATOR THEY WOULD LIKE TO TAKE PT BACK AT 1PM TODAY, CM TO NOTIFY PT, NURSING, HOSPITALIST OF PT'S DISPO. PT WILL D/C AT 1PM TODAY TO [facility], [facility] FOR BLS TRANSPORT.
--- NOTE | 2020-12-28 11:43 | PM.DS ---
DS: Providers Provider Date of Service: 12/28/20 Date of admission: 12/17/20 16:34 Primary care physician: Shon Brown MD Consults: 12/17/20 17:28 Consult to Urology Routine Consulting Provider: Mateus Bradshaw Reason for consultation: abscess of penis Has provider been notified: No 12/17/20 18:06 Consult to Infectious Diseases Routine Consulting Provider: Tana Lei Reason for consultation: scrotal cellulitis, penile abscess, not Medina' 12/18/20 09:12 Consult to Cardiology Stat Consulting Provider: Jared Evans Reason for consultation: chest pain, sudden onset @ 0900, pt going to OR in afternoon 12/23/20 13:24 Consult to Wound Care [place]ine [place]ing [place] [facility] Reason for consultation: Stage 2 pressure ulcer for your eval DS: Diagnosis Discharge Diagnosis (1) Abscess of penis: Status: Acute (2) Cellulitis of scrotum: Status: Acute (3) Atypical chest pain: Status: Acute (4) C. difficile colitis: Status: Acute Problem details: stable (5) Scrotal abscess: Status: Acute Problem details: Drained November 2020 (6) Carbuncle of gluteal region: Status: Acute Problem details: Open wound right buttock not consistent with pressure DS: Medications Discharge Medications Home Medications: Home Medications Medication Instructions Recorded Confirmed Fleet Enema 118 ml DE DAILY PRN 12/17/20 12/17/20 acetaminophen 650 mg PO Q4H PRN 12/17/20 12/17/20 apixaban 5 mg PO BID 12/17/20 12/17/20 bisacodyl 10 mg DE DAILY PRN 12/17/20 12/17/20 cyanocobalamin (vitamin B-12) 1,000 mcg PO DAILY 12/17/20 12/17/20 escitalopram oxalate 10 mg PO DAILY 12/17/20 12/17/20 fluticasone propionate 1 spray INTRANASAL DAILY 12/17/20 12/17/20 furosemide 40 mg PO DAILY 12/17/20 12/17/20 loperamide 2 mg PO Q3H PRN 12/17/20 12/17/20 magnesium hydroxide [Milk of 30 ml PO BEDTIME PRN 12/17/20 12/17/20 Magnesia] multivitamin 1 tab PO DAILY 12/17/20 12/17/20 oxycodone 10 mg PO BID 12/17/20 12/17/20 oxycodone 10 mg PO Q6H PRN 12/17/20 12/17/20 potassium chloride 20 meq PO DAILY 12/17/20 12/17/20 Previous Rx's Medication Instructions Recorded doxycycline hyclate 100 mg PO Q12H 3 Days #6 tab 12/28/20 ferrous sulfate 324 mg PO Q48H 30 Days #15 tab 12/28/20 metronidazole [Flagyl] 500 mg PO Q8H 3 Days #9 tab 12/28/20 vancomycin [Firvanq] 125 mg PO Q6H 10 Days #200 ml 12/28/20 DS: Summary Hospital Course Hospital Course: Admission note HPI 80 year-old male resident of [facility] who has a chronic Jacobs catheter and has history of multiple UTIs developed redness and swelling of his penis and scrotum on 11/30/20. He was treated with ciprofloxacin with partial improvement, but when the redness and swelling recurred, his primary care doctor, Shon Brown, ordered a testicular Doppler US which showed thickened scrotal skin without torsion, epididymitis, or abscess. ID was consulted on an outpatient basis and the patient was treated with oral clindamycin and IM ceftriaxone without any clinical improvement. Due to worsening erythema and pain, Dr Brown sent the patient to the ED. Throughout this, the patient has not had fever, chills, nausea, vomiting, or abdominal pain. He does have a history of DM2 but A1c was only 6.1 on 12/16/20. No trauma to the penis that he knows of. He presented to the ED without septic features. CT demonstrated a likely penile abscess along with soft tissue infection of the perineal region and the scrotum without any gas. Urology was consulted and plans operative intervention tomorrow. The patient is on apixaban for atrial fibrillation and last dose was at 10:00 today. Hospital Medicine was called to admit the patient. No chest pain or dyspnea. No history of KS or CVA. Hospital course An 80 years old Male resident of [facility] with PMHx DM2, AF on apixaban, CHF admitted for worsening scrotal/penile cellulitis, failed outpatient antibiotics and developed penile abscess # penile abscess # scrotal cellulitis Evaluated by Dr. Bradshaw from urology who did I&D input with patient with dressing and packing. and treated with IV antibiotics of Zosyn and vancomycin after evaluation by infectious disease specialist. no evidence of Medina's gangrene. used oxycodone as needed for pain. Total of 11 days of antibiotics IV while in the hospital. To continue for 3 more days at time discharge on doxycycline Flagyl as antibiotics were changed with the patient developed C diff infection. Continue daily packing and dressing. To follow-up with Dr. Bradshaw as outpatient # C diff infection Developed diarrhea on 327. C diff test came back positive. He was started on oral vancomycin as IV antibiotics were changed from Zosyn and vancomycin to Flagyl and doxycycline. He did not spike any fever and his white blood cells improved during the hospital stay along with resolution of the diarrhea as he had 2 bowel movements yesterday. Received total of 5 days in hospital to continue as outpatient for total of 14 days. # UTI Urine Cx E.Coi Finished total 5 days of antibiotics # JAZLYN, mild At time of presentation. Improved significantly during the hospital stay back to baseline Time spent discussing smoking cessation with patient: more than 10 minutes Time Spent with Patient Time attestation: Total time spent providing and/or coordinating discharge services: Discharge coordination time: Greater than 30 minutes Physical Exam Vital Signs: Vital Signs: Last Vital Signs Temp 97.7 F 12/28/20 07:50 Pulse 67 12/28/20 07:50 Resp 17 12/28/20 07:50 BP 135/57 L 12/28/20 07:50 Pulse Ox 100 12/28/20 07:50 Body Mass Index 30.9 Const: Other: Constitutional : Alert,, not in distress Neck : Normal inspection, Supple Cardiovascular : RRR, S1 S2, no lower extremity edema Respiratory : Good bilateral air entry, no crackles, wheezes or rhonchi Gastrointestinal: soft, lax, Normal bowel sounds, Non tender Skin : Warm/Dry, No rash Genitourinary: Jacobs in place. Right gluteal superficial wound, erythema and induration of penis/suprapubic area improved significantly. scrotum with packing and no drainage noted. Neurological : Alert & oriented , No focal deficit Discharge Plan Discharge Patient Disposition: [facility] Referrals: [facility] [Other] (BLS TRANSPORT) [facility] [Outside] (RESUMPTION OF CARE) Shon Brown MD [Primary Care Provider] - Discharge Medications: New doxycycline hyclate 100 mg Tablet 100 mg PO Q12H 3 Days Qty: 6 RF: 0 ferrous sulfate 324 mg (65 mg iron) Tablet,Delayed Release (Dr/Ec) 324 mg PO Q48H 30 Days Qty: 15 RF: 0 Firvanq 25 mg/mL Recon Soln 125 mg PO Q6H 10 Days Qty: 200 RF: 0 metronidazole [Flagyl] 500 mg tablet 500 mg PO Q8H 3 Days Qty: 9 RF: 0 Continued multivitamin Tablet 1 tab PO DAILY RF: 0 cyanocobalamin (vitamin B-12) 1,000 mcg Tablet 1,000 mcg PO DAILY RF: 0 fluticasone propionate 50 mcg/actuation [place],Suspension 1 spray INTRANASAL DAILY RF: 0 oxycodone 5 mg Tablet 10 mg PO BID RF: 0 oxycodone 5 mg Tablet 10 mg PO Q6H PRN (Reason: Pain) RF: 0 escitalopram oxalate 10 mg Tablet 10 mg PO DAILY RF: 0 apixaban 5 mg Tablet 5 mg PO BID RF: 0 potassium chloride 20 mEq Tablet Extended Release 20 meq PO DAILY RF: 0 acetaminophen 325 mg Tablet 650 mg PO Q4H PRN (Reason: Pain) RF: 0 loperamide 2 mg Tablet 2 mg PO Q3H PRN (Reason: Diarrhea) RF: 0 magnesium hydroxide [Milk of Magnesia] 400 mg/5 mL Suspension 30 ml PO BEDTIME PRN (Reason: Constipation) RF: 0 bisacodyl 10 mg Suppository 10 mg DE DAILY PRN (Reason: Constipation) RF: 0 Fleet Enema 19-7 gram/118 mL Enema 118 ml DE DAILY PRN (Reason: Constipation) RF: 0 Held furosemide 40 mg Tablet 40 mg PO DAILY RF: 0 Hold Instructions: Resume on 12/30/20. Discontinued ceftriaxone 1 gram Recon Soln 1 g IM DAILY RF: 0 Discharge Orders: Discharge Order (Routine); Ordered 12/28/20 Ordered By: Kareem Purcell Diet: advance to usual diet Activity on Discharge: As tolerated Stand Alone Forms: Patient Portal Discharge page Care Plan Goals: Read below Health Concerns: Read below Plan of Treatment: You were admitted to the hospital with scrotal and base of penis infection with abscess formation requiring drainage by urologist Dr. Bradshaw. You were treated with IV antibiotics and evaluated by infectious disease specialist over the course of hospital stay. Infection lobes much better but still requiring daily dressing. You did the follow-up diarrhea as a result of bacterial infection known as C diff. You were treated with oral vancomycin with good response as diarrhea resolved. To be discharged to [facility] on doxycycline and Flagyl for 3 more days continue vancomycin for 10 more days Come back to the hospital for any worsening fever, abdominal pain or diarrhea
[2020-12-28 12:00] VITALS: BP 135/65; PULSE 70; RESP 18; TEMP 36.9; O2SAT 98
== END 2020-12-28 15:09 | DRG 728 ==
LOC: HO.ED 16:00 → HO.EDOVER 16:47 → HO.S3 16:59
PROVIDERS: Internal Medicine; Physician Assistant Medical; Urology; Admitting Provider Family Medicine; Emergency Provider Emergency Medicine Emergency Medical Services; PCP Internal Medicine Medical Oncology; Visit Provider Student in an Organized Health Care Education/Training Program
PROC: 0H9AXZZ Drainage of Inguinal Skin, External Approach (ICD-10-PCS; principal; 2020-12-18 17:00)
DX: N48.21 Abscess of corpus cavernosum and penis (principal); A04.72 Enterocolitis due to Clostridium difficile, not specified as recurrent; I13.0 Hypertensive heart and chronic kidney disease with heart failure and stage 1 through stage 4 chronic kidney disease, or unspecified chronic kidney disease; N17.9 Acute kidney failure, unspecified; N39.0 Urinary tract infection, site not specified; I48.91 Unspecified atrial fibrillation; Z98.1 Arthrodesis status; E11.22 Type 2 diabetes mellitus with diabetic chronic kidney disease; F32.9 Major depressive disorder, single episode, unspecified; B96.20 Unspecified Escherichia coli [E. coli] as the cause of diseases classified elsewhere; E87.6 Hypokalemia; D50.9 Iron deficiency anemia, unspecified; I50.9 Heart failure, unspecified; L98.419 Non-pressure chronic ulcer of buttock with unspecified severity; N18.30 Chronic kidney disease, stage 3 unspecified; Z20.822 Contact with and (suspected) exposure to COVID-19; Z88.5 Allergy status to narcotic agent; I44.7 Left bundle-branch block, unspecified; Z79.01 Long term (current) use of anticoagulants; Z79.52 Long term (current) use of systemic steroids; Z79.891 Long term (current) use of opiate analgesic; Z79.899 Other long term (current) drug therapy
CPT/HCPCS: 36415; 71045; 74177; 80048; 80053; 80061; 80202; 81001; 81003; 82607; 82728; 82746; 82947; 83036; 83540; 83605; 83690; 83735; 84484; 85025; 85027; 85045; 85610; 85652; 85730; 86140; 87040; 87071; 87086; 87088; 87186; 87205; 87324; 87449; 87635; 93005; 96365; 96366; 96368; 99284; 99285; J2270; J2405; J2543; J3010; J3370; Q9967

== ENCOUNTER 2020-12-30 07:42 | Outpatient (REF) | payer MEDICARE, SELFPAY ==
[2020-12-30 10:01] LABS: Anion Gap 8 (12-20); Blood Urea Nitrogen 20 mg/dL (9-16); Carbon Dioxide 30 mmol/L (22-29); Chloride 106 mmol/L (96-108); Estimated Glomerular Filt Rate > 60; Potassium 4.3 mmol/L (3.3-5.1); Sodium 140 mmol/L (135-145)
== END 2020-12-30 07:43 | disposition home or self-care (01) ==
LOC: HO.HSH3E 07:42
PROVIDERS: Visit Provider Nurse Practitioner Acute Care
DX: N18.9 Chronic kidney disease, unspecified (principal)
CPT/HCPCS: 36415; 80051; 82565; 84520

== ENCOUNTER → 2021-01-11 14:20 | Outpatient (BNVA) | payer MEDICARE, SELFPAY | PROVIDERS: PCP Internal Medicine Medical Oncology; Visit Provider Urology | DX: N49.2 Inflammatory disorders of scrotum (principal); R33.9 Retention of urine, unspecified | CPT/HCPCS: 99212 ==

== ENCOUNTER → 2021-02-18 14:19 | Outpatient (BNVA) | payer MEDICARE, SELFPAY | PROVIDERS: PCP Hospitalist; Visit Provider Urology | DX: R33.9 Retention of urine, unspecified (principal) | CPT/HCPCS: 51701; 51702; 99212 ==

== ENCOUNTER 2021-03-03 21:30 | Outpatient (REF) | payer MEDICARE, SELFPAY ==
[2021-03-04 09:27] LABS: CDIFF Ag Positive (Negative); CDiff Toxin Positive (Negative)
[2021-03-04 09:29] LABS: CDIFF Internal ctrl Dots and bkg OK (V)
== END 2021-03-03 21:31 | disposition home or self-care (01) ==
LOC: HO.HSH3E 21:30
PROVIDERS: Visit Provider Internal Medicine Medical Oncology
DX: A04.72 Enterocolitis due to Clostridium difficile, not specified as recurrent (principal)
CPT/HCPCS: 87324; 87449

== ENCOUNTER 2021-03-09 09:55 | Outpatient (REF) | payer MEDICARE, SELFPAY | END 2021-03-09 09:56 | disposition home or self-care (01) | LOC: HO.HSH3E 09:55 | PROVIDERS: Visit Provider Internal Medicine Medical Oncology | DX: J02.9 Acute pharyngitis, unspecified (principal) | CPT/HCPCS: 87071 ==

== ENCOUNTER 2021-05-19 14:09 | Outpatient (REF) | payer MEDICARE, SELFPAY | END 2021-05-19 14:10 | disposition home or self-care (01) | LOC: HO.LNP 14:09 | PROVIDERS: Visit Provider Internal Medicine Medical Oncology | DX: R36.9 Urethral discharge, unspecified (principal) | CPT/HCPCS: 87071; 87205 ==

== ENCOUNTER 2021-06-19 09:00 | Outpatient (REF) | payer MEDICARE, SELFPAY | END 2021-06-19 09:01 | disposition home or self-care (01) | LOC: HO.HSH3E 09:00 | PROVIDERS: PCP Internal Medicine Medical Oncology; Visit Provider Internal Medicine Medical Oncology | DX: Z13.89 Encounter for screening for other disorder (principal) | CPT/HCPCS: 87071 ==

== ENCOUNTER 2021-06-19 12:50 | Outpatient (REF) | payer MEDICARE, SELFPAY ==
[2021-06-19 13:04] LABS: Appearance Urine CLOUDY; Color Urine YELLOW; Glucose Urine UA 100 MG/DL (NEG); Leukocyte Esterase Urine 3+ (NEG); Nitrite Urine POS (NEG); UACC Culture Trigger YES; Urine Blood 1+ (NEG); Urine Ketones NEG (NEG); Urine Protein TRACE MG/DL (NEG-TRACE)
[2021-06-19 13:14] LABS: Bacteria Urine 2+ /LPF
[2021-06-19 13:15] LABS: WBC Clumps Urine NOTED
== END 2021-06-19 12:51 | disposition home or self-care (01) ==
LOC: HO.HSH3E 12:50
PROVIDERS: PCP Internal Medicine Medical Oncology; Visit Provider Internal Medicine Medical Oncology
DX: R50.9 Fever, unspecified (principal); R82.90 Unspecified abnormal findings in urine
CPT/HCPCS: 81001; 87071; 87086

== ENCOUNTER 2021-06-20 06:07 | Outpatient (REF) | payer MEDICARE, SELFPAY ==
[2021-06-20 08:26] LABS: MANUAL DIFF FLAG NO
[2021-06-20 08:39] LABS: Basophils Absolute Auto 0.1 X10*3/uL (0.0-0.2); Basophils Percent Auto 0.6 % (0-2); Eosinophils Absolute Auto 0.4 X10*3/uL (0.0-0.4); Eosinophils Percent Auto 3.9 % (0-4); Hematocrit 31.2 % (42-52); Hemoglobin 9.9 g/dl (14.0-18.0); Imm Gran Abs Auto 0.05 X10*3/uL (0.00-0.03); Imm Gran Pct Auto 0.6 % (0.0-0.4); Lymphocytes Absolute Auto 1.3 X10*3/uL (1.2-4.9); Lymphocytes Percent Auto 14.2 % (20-40); Mean Corpuscular HGB Conc 31.7 g/dl (31.0-36.0); Mean Corpuscular Hemoglobin 31.3 pg (27.0-33.0); Mean Corpuscular Volume 98.7 fL (80-98); Monocytes Percent Auto 10.8 % (2-11); Neutrophils Absolute Auto 6.3 X10*3/uL (2.0-8.3); Neutrophils Percent Auto 69.9 % (45-73); Platelet Count 186 X10*3/uL (160-400); Red Blood Count 3.16 X10*6/uL (4.60-5.80); Red Cell Distribution Width 15.8 % (11.0-16.0)
[2021-06-20 08:46] LABS: Anion Gap 10 (12-20); Blood Urea Nitrogen 24 mg/dL (9-16); Calcium 8.4 mg/dL (8.4-10.2); Carbon Dioxide 27 mmol/L (22-29); Chloride 106 mmol/L (96-108); Estimated Glomerular Filt Rate 46; Glucose Random 86 mg/dL (60-115); Potassium 4.2 mmol/L (3.3-5.1); Sodium 139 mmol/L (135-145)
== END 2021-06-20 06:08 | disposition home or self-care (01) ==
LOC: HO.HSH3E 06:07
PROVIDERS: Visit Provider Internal Medicine Medical Oncology
DX: N39.0 Urinary tract infection, site not specified (principal)
CPT/HCPCS: 36415; 80048; 85025

== ENCOUNTER 2021-07-04 06:48 | Outpatient (REF) | payer MEDICARE, SELFPAY ==
[2021-07-04 07:51] LABS: MANUAL DIFF FLAG NO
[2021-07-04 07:53] LABS: Basophils Percent Auto 0.6 % (0-2); Eosinophils Absolute Auto 0.2 X10*3/uL (0.0-0.4); Eosinophils Percent Auto 3.1 % (0-4); Hematocrit 29.9 % (42-52); Hemoglobin 9.5 g/dl (14.0-18.0); Imm Gran Abs Auto 0.03 X10*3/uL (0.00-0.03); Imm Gran Pct Auto 0.4 % (0.0-0.4); Lymphocytes Absolute Auto 1.3 X10*3/uL (1.2-4.9); Lymphocytes Percent Auto 18.6 % (20-40); Mean Corpuscular HGB Conc 31.8 g/dl (31.0-36.0); Mean Corpuscular Hemoglobin 31.3 pg (27.0-33.0); Mean Corpuscular Volume 98.4 fL (80-98); Mean Platelet Volume 9.4 fL (9.4-12.4); Monocytes Absolute Auto 0.7 X10*3/uL (0.1-1.2); Monocytes Percent Auto 10.4 % (2-11); Neutrophils Absolute Auto 4.7 X10*3/uL (2.0-8.3); Neutrophils Percent Auto 66.9 % (45-73); Platelet Count 242 X10*3/uL (160-400); Red Blood Count 3.04 X10*6/uL (4.60-5.80); Red Cell Distribution Width 15.3 % (11.0-16.0)
[2021-07-04 08:02] LABS: Anion Gap 11 (12-20); Blood Urea Nitrogen 23 mg/dL (9-16); Carbon Dioxide 27 mmol/L (22-29); Chloride 104 mmol/L (96-108); Estimated Glomerular Filt Rate 44; Potassium 4.5 mmol/L (3.3-5.1); Sodium 137 mmol/L (135-145)
== END 2021-07-04 06:49 | disposition home or self-care (01) ==
LOC: HO.HSH3E 06:48
PROVIDERS: Visit Provider Internal Medicine Interventional Cardiology
DX: N49.2 Inflammatory disorders of scrotum (principal)
CPT/HCPCS: 36415; 80051; 82565; 84520; 85025

== ENCOUNTER 2021-07-18 11:02 | Outpatient (REF) | payer MEDICARE, SELFPAY | END 2021-07-18 11:03 | disposition home or self-care (01) | LOC: HO.HSH3E 11:02 | PROVIDERS: Visit Provider Internal Medicine Medical Oncology | DX: N48.22 Cellulitis of corpus cavernosum and penis (principal) | CPT/HCPCS: 87071; 87205 ==

== ENCOUNTER → 2021-08-03 09:23 | Outpatient (BNVA) | payer MEDICARE, SELFPAY | PROVIDERS: PCP Internal Medicine Medical Oncology; Visit Provider Urology | DX: N31.9 Neuromuscular dysfunction of bladder, unspecified (principal); N49.2 Inflammatory disorders of scrotum | CPT/HCPCS: 99212 ==

== ENCOUNTER 2021-08-17 07:09 | Outpatient (REF) | payer MEDICARE, SELFPAY ==
[2021-08-17 07:51] LABS: Basophils Percent Auto 0.5 % (0-2); Eosinophils Absolute Auto 0.5 X10*3/uL (0.0-0.4); Eosinophils Percent Auto 8.6 % (0-4); Hematocrit 30.3 % (42.0-52.0); Hemoglobin 9.7 g/dl (14.0-18.0); Imm Gran Abs Auto 0.02 X10*3/uL (0.00-0.03); Imm Gran Pct Auto 0.4 % (0.0-0.4); Lymphocytes Absolute Auto 1.2 X10*3/uL (1.2-4.9); Lymphocytes Percent Auto 21.1 % (20-40); MANUAL DIFF FLAG NO; Mean Platelet Volume 9.6 fL (9.4-12.4); Monocytes Absolute Auto 0.6 X10*3/uL (0.1-1.2); Monocytes Percent Auto 11.5 % (2-11); Neutrophils Absolute Auto 3.2 x10*3/uL (2.0-8.3); Neutrophils Percent Auto 57.9 % (45-73); Platelet Count 211 X10*3/uL (160-400); Red Blood Count 3.03 X10*6/uL (4.60-5.80); Red Cell Distribution Width 15.1 % (11.0-16.0); White Blood Count 5.6 X10*3/uL (4.8-10.8)
== END 2021-08-17 07:10 | disposition home or self-care (01) ==
LOC: HO.HSH3E 07:09
PROVIDERS: Visit Provider Internal Medicine Medical Oncology
DX: Z01.818 Encounter for other preprocedural examination (principal)
CPT/HCPCS: 36415; 85025

== ENCOUNTER 2021-08-26 10:54 | Outpatient (REF) | payer MEDICARE, SELFPAY ==
[2021-08-26 11:50] LABS: Alanine Aminotransferase 10 U/L (0-40); Albumin Level 3.6 g/dL (3.5-5.0); Alkaline Phosphatase 73 U/L (39-117); Anion Gap 14 (12-20); Aspartate Amino Transferase 16 U/L (5-37); Bilirubin Total 0.4 mg/dL (0.0-1.0); Blood Urea Nitrogen 35 mg/dL (9-16); Calcium 8.8 mg/dL (8.4-10.2); Carbon Dioxide 24 mmol/L (22-29); Chloride 104 mmol/L (96-108); Estimated Glomerular Filt Rate 44; Glucose Random 135 mg/dL (60-115); Magnesium 2.1 mg/dL (1.6-2.6); Potassium 4.1 mmol/L (3.3-5.1); Sodium 138 mmol/L (135-145); Total Protein 7.1 g/dL (6.5-8.0)
== END 2021-08-26 10:55 | disposition home or self-care (01) ==
LOC: HO.HSH3E 10:54
PROVIDERS: Visit Provider Internal Medicine Medical Oncology
DX: Z01.812 Encounter for preprocedural laboratory examination (principal)
CPT/HCPCS: 36415; 80053; 83735

== ENCOUNTER 2021-08-29 08:35 | Day surgery (SDC) | payer MEDICARE, SELFPAY ==
[2021-08-18 08:25] VITALS: BMI 41.4
--- NOTE | 2021-08-22 13:44 | P.CONAN_ITS ---
Documented by User: Ava May NP 08/24/21 12:50 HPI - Anesthesia Eval Consult details Narrative: 81yo M for Insertion Suprapubic Tube, Cystoscopy, EUA of Scrotal Sinus Eliquis for afib Chronic opioids s/p scrotal I&D 11/2020 with [facility] Active Problems Active Problems: All Active Problems (Updated 08/18/21 @ 08:23 by Tala Chavez RN) Scrotal abscess (Acute) Hypotonic neurogenic bladder (Acute) Urine retention (Acute) Left bundle branch block (Acute) Past Medical History Medical History (Updated 08/24/21 @ 10:20 by Tala Chavez RN) Atrial fibrillation Benign prostate hyperplasia C. difficile colitis Carbuncle of gluteal region Cardiomyopathy CHF (congestive heart failure) CKD (chronic kidney disease) stage 3, GFR 30-59 ml/min COVID-19 vaccine series completed Depression Dysphagia Hypertension Left bundle branch block half-way resident Osteoarthritis PONV (postoperative nausea and vomiting) Spinal stenosis Type 2 diabetes mellitus Urine retention Venous insufficiency Family History Family History Other No family history of cardiovascular disease Surgical History Surgical History (Updated 08/18/21 @ 08:37 by Tala Chavez RN) H/O spinal fusion History of incision and drainage History of ligation of vein Social History Social History (Updated 08/17/21 @ 14:48 by Tala Chavez RN) Household Members: None [facility] Are you a primary care analyst to a significant other at home: No Do you presently have visiting nurse or other home services: Yes (SNF) Unable to assess alcohol history related to: Unknown Alcohol intake: never Patient Tobacco Use Status: Tobacco use Unknown Use of substances other than those prescribed or required for medical reasons: No Have you been hit, kicked, punched, or otherwise hurt by someone within the past year? If so, by whom?: No Are you DNR?: No Advance Directives: Yes Advance Directives Information Provided: Yes (HCP & MOLST) Advance Directives on File: Yes Advance Directives Date on File: 12/17/20 Recently lost weight without trying: No Eating poorly because of decreased appetite: No Nutrition Risks: No Nutritional Risk service: Yes Current occupational status: retired Meds Allergies Allergy/AdvReac Type Severity Reaction Status Date / Time codeine AdvReac Intermediate Vomiting Verified 08/24/21 10:20 morphine AdvReac Intermediate Vomiting Verified 08/17/21 14:20 Home Medications Medication Instructions Recorded Confirmed Last Taken Type acetaminophen 325 mg tablet 650 mg PO Q4H PRN 12/17/20 08/17/21 12/17/20 History bisacodyl 10 mg rectal suppository 10 mg NM DAILY PRN 12/17/20 08/17/21 12/05/20 History cyanocobalamin (vitamin B-12) 1,000 mcg PO DAILY 12/17/20 08/17/21 12/17/20 History 1,000 mcg tablet escitalopram oxalate 10 mg tablet 10 mg PO DAILY 12/17/20 08/17/21 12/17/20 History fluticasone propionate 50 1 spray INTRANASAL DAILY 12/17/20 08/17/21 12/17/20 History mcg/actuation nasal spray,suspension loperamide 2 mg tablet 2 mg PO Q3H PRN 12/17/20 08/17/21 12/10/20 History magnesium hydroxide 400 mg/5 mL 30 ml PO BEDTIME PRN 12/17/20 08/17/21 12/04/20 History oral suspension (Milk of Magnesia) multivitamin 1 tab PO DAILY 12/17/20 08/17/21 12/17/20 History oxycodone 5 mg tablet 10 mg PO BID 12/17/20 08/17/21 12/17/20 History oxycodone 5 mg tablet 10 mg PO Q6H PRN 12/17/20 08/17/21 Unknown History sodium phosphates 19 gram-7 118 ml NM DAILY PRN 12/17/20 08/17/21 Unknown History gram/118 mL enema (Fleet Enema) apixaban 2.5 mg tablet 2.5 mg PO BID 08/17/21 08/17/21 Unknown History lidocaine 5 % topical patch 1 patch TOPICAL DAILY 08/17/21 08/17/21 Unknown History (Lidoderm) Exam Exam Date and Time: August 22, 2021 1344 Height,Weight and Vital Signs: Height 5 ft 6 in Weight 116.573 kg Pertinent Lab Results Pertinent Lab Results: Laboratory Tests 07/04/21 08/17/21 06:10 06:24 WBC 5.6 Hgb 9.7 L Hct 30.3 L Plt Count 211 Sodium 137 Potassium 4.5 Chloride 104 Carbon Dioxide 27 BUN 23 H Creatinine 1.52 H Narrative Narrative: EKG 08/2021 NSR @ 89 ECHO 12/2019 LV systolic function is severely decreased. EF 25-30% Severe global hypokinesis No valve pathology seen Assessment and Plan Assessment Anesthesia Assessment: Chart Reviewed Documented by User: Nolan Donald MD 08/29/21 10:23 [facility] Past Medical History Medical History (Updated 08/24/21 @ 10:20 by Tala Chavez RN) Atrial fibrillation Benign prostate hyperplasia C. difficile colitis Carbuncle of gluteal region Cardiomyopathy CHF (congestive heart failure) CKD (chronic kidney disease) stage 3, GFR 30-59 ml/min COVID-19 vaccine series completed Depression Dysphagia Hypertension Left bundle branch block half-way resident Osteoarthritis PONV (postoperative nausea and vomiting) Spinal stenosis Type 2 diabetes mellitus Urine retention Venous insufficiency Family History Family History Other No family history of cardiovascular disease Surgical History Surgical History (Updated 08/18/21 @ 08:37 by Tala Chavez RN) H/O spinal fusion History of incision and drainage History of ligation of vein Social History Social History (Updated 08/17/21 @ 14:48 by Tala Chavez RN) Household Members: None Housing: [facility] Housing Other:: [place] [facility] Are you a primary care analyst to a significant other at home: No Do you presently have visiting nurse or other home services: Yes (SNF) Unable to assess alcohol history related to: Unknown Alcohol intake: never Patient Tobacco Use Status: Tobacco use Unknown Use of substances other than those prescribed or required for medical reasons: No Have you been hit, kicked, punched, or otherwise hurt by someone within the past year? If so, by whom?: No Are you DNR?: No Advance Directives: Yes Advance Directives Information Provided: Yes (HCP & MOLST) Advance Directives on File: Yes Advance Directives Date on File: 12/17/20 Recently lost weight without trying: No Eating poorly because of decreased appetite: No Nutrition Risks: No Nutritional Risk service: Yes Current occupational status: retired Meds Allergies Allergy/AdvReac Type Severity Reaction Status Date / Time codeine AdvReac Intermediate Vomiting Verified 08/24/21 10:20 morphine AdvReac Intermediate Vomiting Verified 08/17/21 14:20 Home Medications Medication Instructions Recorded Confirmed Last Taken Type acetaminophen 325 mg tablet 650 mg PO Q4H PRN 12/17/20 08/17/21 12/17/20 History bisacodyl 10 mg rectal suppository 10 mg NM DAILY PRN 12/17/20 08/17/21 12/05/20 History cyanocobalamin (vitamin B-12) 1,000 mcg PO DAILY 12/17/20 08/17/21 12/17/20 History 1,000 mcg tablet escitalopram oxalate 10 mg tablet 10 mg PO DAILY 12/17/20 08/17/21 12/17/20 History fluticasone propionate 50 1 spray INTRANASAL DAILY 12/17/20 08/17/21 12/17/20 History mcg/actuation nasal spray,suspension loperamide 2 mg tablet 2 mg PO Q3H PRN 12/17/20 08/17/21 12/10/20 History magnesium hydroxide 400 mg/5 mL 30 ml PO BEDTIME PRN 12/17/20 08/17/21 12/04/20 History oral suspension (Milk of Magnesia) multivitamin 1 tab PO DAILY 12/17/20 08/17/21 12/17/20 History oxycodone 5 mg tablet 10 mg PO BID 12/17/20 08/17/21 12/17/20 History oxycodone 5 mg tablet 10 mg PO Q6H PRN 12/17/20 08/17/21 Unknown History sodium phosphates 19 gram-7 118 ml NM DAILY PRN 12/17/20 08/17/21 Unknown History gram/118 mL enema (Fleet Enema) apixaban 2.5 mg tablet 2.5 mg PO BID 08/17/21 08/17/21 Unknown History lidocaine 5 % topical patch 1 patch TOPICAL DAILY 08/17/21 08/17/21 Unknown Hi story (Lidoderm) Exam Airway Mallampati Class: III TM Dist: >3cm Neck ROM: Full
[2021-08-29 09:36] VITALS: BP 123/59; PULSE 71; RESP 16; TEMP 36.7; O2SAT 93
[2021-08-29] MEDS: Lactated Ringers 1,000 ML 20 ML IVCONT (09:39)
--- NOTE | 2021-08-29 10:46 | MHC.SHP ---
Pre-Procedural Eval Section A Date of Service: 08/29/21 The patient is an INPATIENT: No Changes since office visit: No Cold of Flu in the past 2 weeks, No New Medical Problems, No Changes in Medication and No Patient answered all questions The History & Physical has been completed within 30 days and I have reviewed it.: Yes Section B Chief Complaint: dysfunction of bladder Allergies: Allergies Allergy/AdvReac Type Severity Reaction Status Date / Time codeine AdvReac Intermediate Vomiting Verified 08/24/21 10:20 morphine AdvReac Intermediate Vomiting Verified 08/17/21 14:20 Plan Diagnosis/Plan: Unchanged (cysto, SPT placement, scrotal examination under anesthesia) I have reviewed the history and physical and performed a pertinent physical examination on my patient. No changes have occurred unless specified.
--- NOTE | 2021-08-29 11:52 | P.OP_ITS ---
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 1. Cystoscopy 2. Suprapubic tube placement 3. examination of scrotal sinus under anesthesia Surgeon: Dr Mateus Bradshaw Anesthesia:? general plus local Indications for procedure: this is an 81-year-old male. [facility]. Nonambulatory. Had a Hernandez catheter longstanding for many years. Iatrogenic hypospadias. Dev eloped midline scrotal sinus that was previously resected. This has been slow in healing. Based on his significant hypospadias suggestion is for suprapubic tube placement for urinary diversion and examination of scrotal sinus under anesthesia. Procedure: After informed consent was verified the patient was brought to the operating room and placed in a supine position.? Anesthesia was administered per protocol. The patient was placed in a modified dorsal lithotomy position and prepped and draped in a sterile fashion. A safety pause was performed confirming patient siobhan ntity, procedure and antibiotics. A 22 Israeli cystoscope was inserted per urethra. Bladder was examined in its entirety. No abnormalities seen. Air bubble was located at the dome of the bladder. A finder needle was inserted 2 fingerbreaths above the symphysis pubis on the abdomen into the bladder.? The needle was visualized in the bladder via cystoscopy. Local anesthetic was infiltrated subcutaneously around the needle introduction site. A small, 1cm horizontal incision was made.? A trocar introducer was advanced through the abdominal wall into the bladder under visualization. The obturator was removed and a 18 Fr hernandez catheter placed. 7cc was used to inflate the balloon. The external portion of the trocar was removed. The urethra was examined in its entirety and there was no obvious sinus. The cystoscope was removed. The scrotal sinus was probed using a lacrimal duct. The urethra was re-examined and the probe could be felt passing to the right- hand side of the urethra. There was a small amount of urethra right at the junction between the anterior and posterior urethra. 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 Dressing was placed, the bladder was emptied, and a drainage bag was attached. The patient tolerated the procedure and was transferred in stable condition to the recovery area. Suprapubic tube will be changed in 1 month with a follow-up office visit. Conservative therapy for closure of fistula will be attempted. Suprapubic urinary diversion should remain and hopefully allow the urethra cutaneous fistula to properly heal. If not will require excision and closure under anesthesia. This would be a more significant intervention.
[2021-08-29 12:00] VITALS: BP 130/71; PULSE 67; RESP 16; TEMP 36.2; O2SAT 99
[2021-08-29 12:05] VITALS: BP 132/70; PULSE 75; RESP 16; O2SAT 95
[2021-08-29 12:10] VITALS: BP 126/61; PULSE 66; RESP 16; O2SAT 94
[2021-08-29 12:15] VITALS: BP 123/70; PULSE 65; RESP 18; O2SAT 94
[2021-08-29 12:29] VITALS: BP 123/70; PULSE 58; RESP 18; O2SAT 94
== END 2021-08-29 13:10 | disposition home or self-care (01) ==
PROVIDERS: PCP Internal Medicine Medical Oncology; Visit Provider Urology
PROC: (CPT 51102; principal; 2021-08-29 10:00)
DX: N31.9 Neuromuscular dysfunction of bladder, unspecified (principal); N36.0 Urethral fistula; N49.2 Inflammatory disorders of scrotum; I48.91 Unspecified atrial fibrillation; N40.0 Benign prostatic hyperplasia without lower urinary tract symptoms; R33.9 Retention of urine, unspecified; A04.72 Enterocolitis due to Clostridium difficile, not specified as recurrent; I13.0 Hypertensive heart and chronic kidney disease with heart failure and stage 1 through stage 4 chronic kidney disease, or unspecified chronic kidney disease; I50.9 Heart failure, unspecified; N18.30 Chronic kidney disease, stage 3 unspecified; E11.22 Type 2 diabetes mellitus with diabetic chronic kidney disease; I44.7 Left bundle-branch block, unspecified; Z99.89 Dependence on other enabling machines and devices; Z88.8 Allergy status to other drugs, medicaments and biological substances
CPT/HCPCS: 51040; 55110; J1100; J1956; J2250; J2405; J3010

== ENCOUNTER 2021-09-03 16:25 | Outpatient (REF) | payer MEDICARE, SELFPAY | END 2021-09-03 16:26 | disposition home or self-care (01) | LOC: HO.HSH3E 16:25 | PROVIDERS: Visit Provider Internal Medicine Medical Oncology | DX: L08.9 Local infection of the skin and subcutaneous tissue, unspecified (principal) | CPT/HCPCS: 87071; 87077; 87186; 87205 ==

== ENCOUNTER → 2021-09-22 10:15 | Outpatient (BNVA) | payer MEDICARE, SELFPAY | PROVIDERS: PCP Internal Medicine Medical Oncology; Visit Provider Urology | DX: R33.9 Retention of urine, unspecified (principal) | CPT/HCPCS: 51701; 51705; 99212 ==

== ENCOUNTER 2021-12-20 09:59 | Outpatient (REF) | payer MEDICARE, SELFPAY ==
[2021-12-20 10:33] LABS: MANUAL DIFF FLAG NO
[2021-12-20 10:36] LABS: Basophils Percent Auto 0.3 % (0-2); Eosinophils Absolute Auto 0.3 X10*3/uL (0.0-0.4); Eosinophils Percent Auto 1.7 % (0-4); Hematocrit 37.3 % (42.0-52.0); Hemoglobin 11.8 g/dl (14.0-18.0); Imm Gran Abs Auto 0.07 X10*3/uL (0.00-0.03); Imm Gran Pct Auto 0.5 % (0.0-0.4); Lymphocytes Absolute Auto 0.9 X10*3/uL (1.2-4.9); Lymphocytes Percent Auto 6.1 % (20-40); Mean Corpuscular HGB Conc 31.6 g/dl (31.0-36.0); Mean Corpuscular Hemoglobin 31.6 pg (27.0-33.0); Mean Platelet Volume 9.2 fL (9.4-12.4); Monocytes Absolute Auto 1.3 X10*3/uL (0.1-1.2); Monocytes Percent Auto 9.1 % (2-11); Neutrophils Absolute Auto 11.8 x10*3/uL (2.0-8.3); Neutrophils Percent Auto 82.3 % (45-73); Platelet Count 244 X10*3/uL (160-400); Red Blood Count 3.73 X10*6/uL (4.60-5.80); Red Cell Distribution Width 13.5 % (11.0-16.0); White Blood Count 14.4 X10*3/uL (4.8-10.8)
[2021-12-20 10:58] LABS: Alanine Aminotransferase 65 U/L (0-40); Albumin Level 3.7 g/dL (3.5-5.0); Alkaline Phosphatase 82 U/L (39-117); Anion Gap 14 (12-20); Aspartate Amino Transferase 55 U/L (5-37); Bilirubin Total 0.7 mg/dL (0.0-1.0); Blood Urea Nitrogen 21 mg/dL (9-16); Carbon Dioxide 27 mmol/L (22-29); Chloride 102 mmol/L (96-108); Estimated Glomerular Filt Rate 46; Glucose Fasting 108 mg/dL (60-99); Potassium 4.1 mmol/L (3.3-5.1); Sodium 139 mmol/L (135-145); Total Protein 7.1 g/dL (6.5-8.0)
== END 2021-12-20 10:00 | disposition home or self-care (01) ==
LOC: HO.HSH3E 09:59
PROVIDERS: Visit Provider Internal Medicine Medical Oncology
DX: R10.9 Unspecified abdominal pain (principal); R09.02 Hypoxemia
CPT/HCPCS: 36415; 80053; 85025

== ENCOUNTER 2021-12-20 13:15 | Inpatient (IN) | payer OTHER, SELFPAY ==
--- NOTE | ~2021-12-20 | XR_ITS ---
EXAMINATION: XR CHEST CLINICAL INFORMATION: Fever and low oxygen saturation COMPARISON: Previous chest x-ray most recent November 2020 TECHNIQUE: Frontal view of the chest was obtained. FINDINGS: The cardiac silhouette may be enlarged. The lung volumes are low. There are increased left perihilar lung markings questionable for infiltrate. Some of these changes may be overestimated due to low lung volumes. The right lung is clear. There is no pleural effusion or pneumothorax. There are degenerative changes of the spine. XR/XR chest 1V IMPRESSION: Low lung volumes. Question left perihilar infiltrate.
--- NOTE | ~2021-12-20 | US_ITS ---
EXAMINATION: US SCROTUM CLINICAL INFORMATION: cellulitis. COMPARISON: 12/20/2021 TECHNIQUE: A sonogram of the scrotum was performed assessing martinez-scale appearance and color Doppler flow. Spectral Doppler analysis of the arterial and venous flow were performed in the testes bilaterally. FINDINGS: The scrotum appears edematous and thickened. RIGHT: Right testicle measures 2.7 x 1.8 x 2.4 cm, volume 6 mL. No focal testicular parenchymal lesions are visualized. Spectral Doppler analysis of the arterial and venous flow is normal in the right testis. Right epididymal head is normal in size with increased blood flow on color Doppler. There is a moderate-sized hydrocele with internal debris. LEFT: Left testicle measures 2.4 x 2.5 x 2.2 cm, volume 9.5 mL. No focal testicular parenchymal lesions are visualized. Spectral Doppler analysis of the arterial and venous flow is within normal limits in the left testis. Subjectively decreased flow is favored to be technical in nature as opposed to a true diminished flow. Left epididymal head is normal in size. A punctate 3 mm epididymal head cyst is noted. Moderate-sized hydrocele with internal debris. Left epididymal Doppler flow is normal. US/US scrotum IMPRESSION: 1. Edematous and thickened scrotum. No abscess. 2. Moderate-sized bilateral hydroceles 3. Increased blood flow within the right epididymis is the possibility of epididymitis, although this appearance is not specific. No evidence of orchitis.
--- NOTE | ~2021-12-20 | CT_ITS ---
EXAMINATION: CT ABDOMEN AND PELVIS WITHOUT CONTRAST CLINICAL INFORMATION: Abdominal pain COMPARISON: Previous CT of the abdomen and pelvis November 2020 TECHNIQUE: Multidetector volumetric imaging was performed from the superior aspect of the liver through the pubic symphysis. Sagittal and coronal reformatted images were obtained on the technologist's workstation. This CT examination was performed using dose optimization techniques as appropriate, variously including the following: *Automated exposure control *Adjustment of mA and/or kV according to patient size (this includes techniques or standardized protocols for targeted exams where dose is matched to indication/reason for exam; i.e. extremities or head) *Use of iterative reconstruction technique DLP: 1490 mGy-cm FINDINGS: LUNG BASES: There are increased peripheral reticular markings at the lung bases. LIVER, GALLBLADDER, AND BILIARY TREE: The liver is normal in size, shape, and attenuation. No focal hepatic lesion or biliary ductal dilatation is present. There are gallstones in the gallbladder. PANCREAS: Unremarkable. SPLEEN: Unremarkable. ADRENAL GLANDS: Unremarkable. 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 This measures 2 x 4 cm in transverse and longitudinal dimension. There is a tiny 1 to 2 mm stone in the upper pole left kidney. There does not appear to be significant left hydronephrosis. The right kidney is unremarkable. BLADDER: There is a suprapubic tube in the bladder. GASTROINTESTINAL TRACT: There is severe constipation and fecal impaction. The colon is dilated suggestive of mild secondary obstruction. There is wall thickening of the rectum and distal colon suggestive for stercoral colitis related to long-standing constipation. No evidence of free air is seen. No ascites is seen. Small bowel is unremarkable. The appendix is unremarkable. ABDOMINAL WALL: No significant hernia is appreciated. LYMPH NODES: Normal. VASCULAR: Unremarkable. PELVIC VISCERA: Unremarkable. OSSEOUS STRUCTURES: There are degenerative changes of the spine. CT/CT abdomen pelvis wo con IMPRESSION: Severe constipation/fecal impaction. 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 Gallstones. Left renal stones. Suprapubic tube in the bladder. Fleischner guidelines were followed.
[2021-12-20 13:26] VITALS: BP 99/50; PULSE 55; O2SAT 95
--- NOTE | 2021-12-20 13:34 | ECG_ITS ---
Test Reason : ABDOMINAL PAIN Blood Pressure : / mmHG Vent. Rate : 074 BPM Atrial Rate : 074 BPM P-R Int : 248 ms QRS Dur : 156 ms QT Int : 430 ms P-R-T Axes : 022 -10 024 degrees QTc Int : 477 ms Sinus rhythm with sinus arrhythmia with 1st degree A-V block Left bundle branch block Abnormal ECG When compared with ECG of 18-DEC-2020 08:29, No significant change was found Referred By: Daniel Coppola Electronically Signed By:Anirudh Sandoval
[2021-12-20 13:35] VITALS: BP 122/62; PULSE 78; RESP 18; TEMP 36.8; O2SAT 93; BMI 32.6
--- NOTE | 2021-12-20 13:37 | ED_ITS ---
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 Patient brought in from nursing has been complaining of abdominal pain for the past 5 days, patient was taking to [facility] 3 days ago for abdominal pain and was [facility] back to the [facility] (requested records from [facility] still in process) patient is still having abdominal pain which started 5 days ago with no radiation described as moderate 5/10, mostly around the suprapubic catheter. No nausea, no vomiting, with low-grade fever at the [facility], patient also found to be hypoxic at the [facility] 88% on room air patient declined any shortness of breath or coughing. Patient noted to have suprapubic catheter dated with today's date for last change. Past medical history significant for atrial fibrillation, BPH, CHF, CKD, hypertension, type 2 diabetes. Related Data Home Medications Medication Instructions Recorded Confirmed acetaminophen 325 mg tablet 650 mg PO Q4H PRN 12/17/20 12/20/21 bisacodyl 10 mg rectal suppository 10 mg PA DAILY PRN 12/17/20 12/20/21 cyanocobalamin (vitamin B-12) 1,000 mcg PO DAILY 12/17/20 12/20/21 1,000 mcg tablet escitalopram oxalate 10 mg tablet 10 mg PO DAILY 12/17/20 12/20/21 fluticasone propionate 50 1 spray INTRANASAL DAILY 12/17/20 12/20/21 mcg/actuation nasal spray,suspension loperamide 2 mg tablet 2 mg PO Q3H PRN 12/17/20 12/20/21 magnesium hydroxide 400 mg/5 mL 30 ml PO BEDTIME PRN 12/17/20 12/20/21 oral suspension (Milk of Magnesia) multivitamin 1 tab PO DAILY 12/17/20 12/20/21 oxycodone 5 mg tablet 10 mg PO BID 12/17/20 12/20/21 oxycodone 5 mg tablet 10 mg PO Q6H PRN 12/17/20 12/20/21 sodium phosphates 19 gram-7 118 ml PA DAILY PRN 12/17/20 12/20/21 gram/118 mL enema (Fleet Enema) apixaban 2.5 mg tablet 2.5 mg PO BID 08/17/21 12/20/21 benzocaine 15 mg-menthol 3.6 mg 1 humera MUCOUS MEMBRANE Q2H PRN 12/20/21 12/20/21 lozenges diphenhydramine HCl 25 mg tablet 25 mg PO Q6H PRN 12/20/21 12/20/21 Previous Rx's Medication Instructions Recorded ascorbic acid (vitamin C) 1,000 mg 1 g PO DAILY 90 Days #90 tab 09/22/21 tablet methenamine hippurate 1 gram tablet 1 g PO DAILY 90 Days #90 tab 09/22/21 Allergies Allergy/AdvReac Type Severity Reaction Status Date / Time codeine AdvReac Intermediate Vomiting Verified 09/22/21 10:48 morphine AdvReac Intermediate Vomiting Verified 09/22/21 10:48 Review of Systems Review of Systems: All other systems are reviewed and are negative Constitutional: Reports as per HPI and Reports no additional constitutional c omplaints Eyes: Reports as per HPI and Reports no additional eye complaints Reports system reviewed and no additional complaints, except as documented Cardiovascular: Reports as per HPI and Reports no additional cardiovascular complaints Respiratory: Reports as per HPI and Reports no additional respiratory complaints Gastrointestinal: Reports as per HPI and Reports no additional gastrointestinal complaints Genitourinary: Reports no additional female genitourinary complaints Musculoskeletal: Reports no additional musculoskeletal complaints Skin/Breast: Reports system reviewed and no additional complaints, except as docu Psychiatric: Reports no additional psychiatric complaints Endocrine: Reports no additional endocrine complaints Hematologic/Lymphatic: Reports no additional hematologic/lymphatic complaints Allergic/Immunologic: Reports no additional allergic/immunologic complaints Reports system reviewed and no additional complaints, except as documented and Reports Abnormal speech present [facility] Past Medical History Medical History Atrial fibrillation Benign prostate hyperplasia C. difficile colitis Carbuncle of gluteal region Cardiomyopathy CHF (congestive heart failure) CKD (chronic kidney disease) stage 3, GFR 30-59 ml/min COVID-19 vaccine series completed Depression Dysphagia Hypertension Left bundle branch block correction resident Osteoarthritis PONV (postoperative nausea and vomiting) Spinal stenosis Type 2 diabetes mellitus Urine retention Venous insufficiency Surgical History H/O spinal fusion History of incision and drainage History of ligation of vein Family History Family History Other No family history of cardiovascular disease Social History Social History Household Members: None Housing: Skilled Nursing Housing Other:: [place] Home resident Are you a primary ambulatory care coordinator to a significant other at home: No Do you presently have visiting nurse or other home services: Yes (SNF) Unable to assess alcohol history related to: Unknown Alcohol intake: never Patient Tobacco Use Status: Tobacco use Unknown Advance Directives: Yes Advance Directives on File: Yes Advance Directives Date on File: 12/17/20 service: Yes Current occupational status: retired Physical Exam ED Vital Signs: Vital Signs - 24 hr 12/20/21 13:35 12/20/21 14:07 12/20/21 15:49 Temperature 98.3 F 98.2 F Pulse Rate 78 78 Respiratory Rate 18 16 Blood Pressure 122/62 121/67 117/66 Pulse Oximetry 93 96 BMI result Body Mass Index 32.6 Vital signs have been reviewed as appeared to be correct. Blood pressure normal. Heart rate normal. Respiration rate normal. Temperature normal. Oxygen saturation normal. Appearance: Alert. Oriented X3. No acute distress. Head: Normal external exam. Normocephalic. Atraumatic. No Agarwal signs noted. No raccoon eyes noted Eyes: PERRLA. EOMI. Conjunctiva and sclera normal. Eyelids normal. ENT: TM's Normal. Pharynx normal. Uvula midline. Moist mucous membranes. No trismus noted. No drooling noted. No muffled voice noted. Neck: Normal inspection. Neck supple. FROM. No adenopathy. Thyroid Normal. No meningeal signs. No neck mass noted. CVS: Normal heart rate and rhythm. Heart sound normal. No murmurs noted. Pulses normal throughout. Respiratory: No respiratory distress. Painless inspiration. Breath sounds normal. No wheezes/rales/rhonchi noted. Chest nontender. No accessory muscle usage noted or decreased air movement noted. Abdomen: Soft and nontender. Bowel sounds normal in all 4 quadrants. No distention noted. No organomegaly noted. No visible injury noted. exam: Scrotum is erythematous and swollen with redness and hotness. No fluctuation or abscess is appreciated. Positive cremasteric reflex. Back: No CVA tenderness. Full range of motion noted. Skin: Skin warm and dry. Normal skin color. Normal skin turgor. No rashes/lesions/lacerations noted. Extremities: No lower extremity edema. Extremities exhibit normal range of motion. Extremities nontender. Neuro: Oriented X 3. Cranial nerve exam: II-XII are grossly intact No motor deficit. No sensory deficit. Reflexes normal. Course Course Course Narrative: Assessment and plan. 81 years old male came in from her [facility] for abdominal pain, fever, leukocytosis. 1. Simple UTI with SIRs criteria ( fever and leukocytosis) no severe sepsis, IV fluid/ceftriaxone. 2. Scrotal cellulitis without abscess start patient on vancomycin. 3. Severe constipation will try milk of magnesia and enema. Medical Decision Making Medical Records Medical records reviewed: Yes I reviewed the patient's medical records. Lab Data Lab results reviewed: Yes I reviewed the patient's lab results. Result diagrams: 12/20/21 13:58 12/20/21 13:57 Labs: Lab Results 12/20/21 12/20/21 12/20/21 Range/Units 13:50 13:57 13:57 WBC (4.8-10.8) X10*3/uL RBC (4.60-5.80) X10*6/uL Hgb (14.0-18.0) g/dl Hct (42.0-52.0) % MCV (80.0-98.0) fL MCH (27.0-33.0) pg MCHC (31.0-36.0) g/dl RDW (11.0-16.0) % Plt Count (160-400) X10*3/uL MPV (9.4-12.4) fL Immature Gran % (Auto) (0.0-0.4) % Neut % (Auto) (45-73) % Lymph % (Auto) (20-40) % [place] % (Auto) (2-11) % Eos % (Auto) (0-4) % Baso % (Auto) (0-2) % Lymph # (Auto) (1.2-4.9) X10*3/uL [place] # (Auto) (0.1-1.2) X10*3/uL Eos # (Auto) (0.0-0.4) X10*3/uL Baso # (Auto) (0.0-0.2) X10*3/uL Abs Immat Gran (auto) (0.00-0.03) X10*3/uL Absolute Neuts (auto) (2.0-8.3) x10*3/uL Absolute Nucleated RBC (0.0-0.012) X10*3/uL Nucleated RBC % (auto) (0.0-0.2) /100WBC Sodium 137 (135-145) mmol/L Potassium 4.3 (3.3-5.1) mmol/L Chloride 102 (96-108) mmol/L Carbon Dioxide 25 (22-29) mmol/L Anion Gap 14 (12-20) BUN 23 H (9-16) mg/dL Creatinine 1.56 H (0.5-1.4) mg/dL Estim Creat Clear Calc 52.5 Estimated GFR 43 Random Glucose 171 H (60-115) mg/dL Lactic Acid (0.5-2.0) mmol/L Calcium 8.8 (8.4-10.2) mg/dL Total Bilirubin 0.5 (0.0-1.0) mg/dL Direct Bilirubin 0.3 (0.0-0.5) mg/dL AST 60 H (5-37) U/L ALT 72 H (0-40) U/L Alkaline Phosphatase 81 (39-117) U/L Troponin I High Sens 6.1 (<3.5-35.0) ng/L B-Natriuretic Peptide 22 (<100) pg/mL Total Protein 6.9 (6.5-8.0) g/dL Albumin 3.6 (3.5-5.0) g/dL Lipase < 4 L (8-78) U/L Urine Color Urine Appearance Urine pH (5.0-8.0) Ur Specific [place] (1.005-1.025) Urine Protein (NEG-TRACE) MG/DL Urine Glucose (UA) (NEG) MG/DL Urine Ketones (NEG) MG/DL Urine Blood (NEG) Urine Nitrite (NEG) Ur Leukocyte Esterase (NEG) Urine RBC (0) /HPF Urine WBC (0-4) /HPF Urine WBC Clumps Ur Squamous Epith Cells /LPF Urine Bacteria /LPF COVID-19 (RU) Negative (Negative) COVID-19 Clin Com See Note 12/20/21 12/20/21 12/20/21 Range/Units 13:57 13:57 13:58 WBC 14.8 H (4.8-10.8) X10*3/uL RBC 3.64 L (4.60-5.80) X10*6/uL Hgb 11.5 L (14.0-18.0) g/dl Hct 36.3 L (42.0-52.0) % MCV 99.7 H (80.0-98.0) fL MCH 31.6 (27.0-33.0) pg MCHC 31.7 (31.0-36.0) g/dl RDW 13.7 (11.0-16.0) % Plt Count 236 (160-400) X10*3/uL MPV 8.8 L (9.4-12.4) fL Immature Gran % (Auto) 0.6 H (0.0-0.4) % Neut % (Auto) 86.6 H (45-73) % Lymph % (Auto) 3.8 L (20-40) % [place] % (Auto) 8.3 (2-11) % Eos % (Auto) 0.5 (0-4) % Baso % (Auto) 0.2 (0-2) % Lymph # (Auto) 0.6 L (1.2-4.9) X10*3/uL [place] # (Auto) 1.2 (0.1-1.2) X10*3/uL Eos # (Auto) 0.1 (0.0-0.4) X10*3/uL Baso # (Auto) 0.0 (0.0-0.2) X10*3/uL Abs Immat Gran (auto) 0.09 H (0.00-0.03) X10*3/uL Absolute Neuts (auto) 12.8 H (2.0-8.3) x10*3/uL Absolute Nucleated RBC 0.000 (0.0-0.012) X10*3/uL Nucleated RBC % (auto) 0.0 (0.0-0.2) /100WBC Sodium (135-145) mmol/L Potassium (3.3-5.1) mmol/L Chloride (96-108) mmol/L Carbon Dioxide (22-29) mmol/L Anion Gap (12-20) BUN (9-16) mg/dL Creatinine (0.5-1.4) mg/dL Estim Creat Clear Calc Estimated GFR Random Glucose (60-115) mg/dL Lactic Acid 1.1 (0.5-2.0) mmol/L Calcium (8.4-10.2) mg/dL Total Bilirubin (0.0-1.0) mg/dL Direct Bilirubin (0.0-0.5) mg/dL AST (5-37) U/L ALT (0-40) U/L Alkaline Phosphatase (39-117) U/L Troponin I High Sens Cancelled (<3.5-35.0) ng/L B-Natriuretic Peptide (<100) pg/mL Total Protein (6.5-8.0) g/dL Albumin (3.5-5.0) g/dL Lipase (8-78) U/L Urine Color Urine Appearance Urine pH (5.0-8.0) Ur Specific [place] (1.005-1.025) Urine Protein (NEG-TRACE) MG/DL Urine Glucose (UA) (NEG) MG/DL Urine Ketones (NEG) MG/DL Urine Blood (NEG) Urine Nitrite (NEG) Ur Leukocyte Esterase (NEG) Urine RBC (0) /HPF Urine WBC (0-4) /HPF Urine WBC Clumps Ur Squamous Epith Cells /LPF Urine Bacteria /LPF COVID-19 (RU) (Negative) COVID-19 Clin Com 12/20/21 Range/Units 14:06 WBC (4.8-10.8) X10*3/uL RBC (4.60-5.80) X10*6/uL Hgb (14.0-18.0) g/dl Hct (42.0-52.0) % MCV (80.0-98.0) fL MCH (27.0-33.0) pg MCHC (31.0-36.0) g/dl RDW (11.0-16.0) % Plt Count (160-400) X10*3/uL MPV (9.4-12.4) fL Immature Gran % (Auto) (0.0-0.4) % Neut % (Auto) (45-73) % Lymph % (Auto) (20-40) % [place] % (Auto) (2-11) % Eos % (Auto) (0-4) % Baso % (Auto) (0-2) % Lymph # (Auto) (1.2-4.9) X10*3/uL [place] # (Auto) (0.1-1.2) X10*3/uL Eos # (Auto) (0.0-0.4) X10*3/uL Baso # (Auto) (0.0-0.2) X10*3/uL Abs Immat Gran (auto) (0.00-0.03) X10*3/uL Absolute Neuts (auto) (2.0-8.3) x10*3/uL Absolute Nucleated RBC (0.0-0.012) X10*3/uL Nucleated RBC % (auto) (0.0-0.2) /100WBC Sodium (135-145) mmol/L Potassium (3.3-5.1) mmol/L Chloride (96-108) mmol/L Carbon Dioxide (22-29) mmol/L Anion Gap (12-20) BUN (9-16) mg/dL Creatinine (0.5-1.4) mg/dL Estim Creat Clear Calc Estimated GFR Random Glucose (60-115) mg/dL Lactic Acid (0.5-2.0) mmol/L Calcium (8.4-10.2) mg/dL Total Bilirubin (0.0-1.0) mg/dL Direct Bilirubin (0.0-0.5) mg/dL AST (5-37) U/L ALT (0-40) U/L Alkaline Phosphatase (39-117) U/L Troponin I High Sens (<3.5-35.0) ng/L B-Natriuretic Peptide (<100) pg/mL Total Protein (6.5-8.0) g/dL Albumin (3.5-5.0) g/dL Lipase (8-78) U/L Urine Color YELLOW Urine Appearance HAZY Urine pH 5.5 (5.0-8.0) Ur Specific [place] >= 1.030 H (1.005-1.025) Urine Protein 2+ H (NEG-TRACE) MG/DL Urine Glucose (UA) NEG (NEG) MG/DL Urine Ketones NEG (NEG) MG/DL Urine Blood 1+ H (NEG) Urine Nitrite NEG (NEG) Ur Leukocyte Esterase 2+ H (NEG) Urine RBC 0-2 (0) /HPF Urine WBC 50-75 H (0-4) /HPF Urine WBC Clumps NOTED Ur Squamous Epith Cells NONE /LPF Urine Bacteria 1+ /LPF COVID-19 (RU) (Negative) COVID-19 Clin Com Imaging Data CT scan - abdomen: Attestation: I personally reviewed and interpreted this imaging study as follows: Radiologist's impression: Severe constipation/fecal impaction. 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 Gallstones. Left renal stones. Suprapubic tube in the bladder. ? Chest x-ray: Attestation: I personally reviewed and interpreted this imaging study as follows: Radiologist's impression: Low lung volumes. Question left perihilar infiltrate. Discharge Plan Discharge Clinical Impression: Constipation, Cellulitis, scrotum, Acute UTI Patient Disposition: Admitted As Inpatient Prescriptions: No Action multivitamin Tablet 1 tab PO DAILY 0RF cyanocobalamin (vitamin B-12) 1,000 mcg Tablet 1,000 mcg PO DAILY 0RF fluticasone propionate 50 mcg/actuation [place],Suspension 1 spray INTRANASAL DAILY 0RF oxycodone 5 mg Tablet 10 mg PO BID 0RF oxycodone 5 mg Tablet 10 mg PO Q6H PRN (Reason: Pain) 0RF escitalopram oxalate 10 mg Tablet 10 mg PO DAILY 0RF acetaminophen 325 mg Tablet 650 mg PO Q4H PRN (Reason: Pain) 0RF loperamide 2 mg Tablet 2 mg PO Q3H PRN (Reason: Diarrhea) 0RF magnesium hydroxide [Milk of Magnesia] 400 mg/5 mL Suspension 30 ml PO BEDTIME PRN (Reason: Constipation) 0RF bisacodyl 10 mg Suppository 10 mg PA DAILY PRN (Reason: Constipation) 0RF Rx Instructions: IF NO BOWEL MOVEMENT IN THREE DAYS OR 9 SHIFTS Fleet Enema 19-7 gram/118 mL Enema 118 ml PA DAILY PRN (Reason: Constipation) 0RF apixaban 2.5 mg Tablet 2.5 mg PO BID 0RF diphenhydramine HCl 25 mg Tablet 25 mg PO Q6H PRN (Reason: PURITIS) 0RF benzocaine-menthol 15-3.6 mg Lozenge 1 humera MUCOUS MEMBRANE Q2H PRN (Reason: Sore Throat) 0RF ascorbic acid (vitamin C) 1,000 mg tablet 1 g PO DAILY 90 Days Qty: 90 1RF methenamine hippurate 1 gram tablet 1 g PO DAILY 90 Days Qty: 90 1RF
--- NOTE | 2021-12-20 13:45 | PHA.MEDREC ---
Pharmacy Consult ? Medication Reconciliation Pharmacy has completed the medication reconciliation. Patient came from [facility]'s home with medication list. Agustina Arita, SukhdeepD
[2021-12-20 14:04] LABS: MANUAL DIFF FLAG NO
[2021-12-20 14:07] VITALS: BP 121/67
[2021-12-20 14:10] LABS: Basophils Percent Auto 0.2 % (0-2); Eosinophils Absolute Auto 0.1 X10*3/uL (0.0-0.4); Eosinophils Percent Auto 0.5 % (0-4); Hematocrit 36.3 % (42.0-52.0); Hemoglobin 11.5 g/dl (14.0-18.0); Imm Gran Abs Auto 0.09 X10*3/uL (0.00-0.03); Imm Gran Pct Auto 0.6 % (0.0-0.4); Lymphocytes Absolute Auto 0.6 X10*3/uL (1.2-4.9); Lymphocytes Percent Auto 3.8 % (20-40); Mean Corpuscular HGB Conc 31.7 g/dl (31.0-36.0); Mean Corpuscular Hemoglobin 31.6 pg (27.0-33.0); Mean Corpuscular Volume 99.7 fL (80.0-98.0); Mean Platelet Volume 8.8 fL (9.4-12.4); Monocytes Absolute Auto 1.2 X10*3/uL (0.1-1.2); Monocytes Percent Auto 8.3 % (2-11); Neutrophils Absolute Auto 12.8 x10*3/uL (2.0-8.3); Neutrophils Percent Auto 86.6 % (45-73); Platelet Count 236 X10*3/uL (160-400); Red Blood Count 3.64 X10*6/uL (4.60-5.80); Red Cell Distribution Width 13.7 % (11.0-16.0); White Blood Count 14.8 X10*3/uL (4.8-10.8)
[2021-12-20 14:18] LABS: Appearance Urine HAZY; Color Urine YELLOW; Glucose Urine UA NEG (NEG); Leukocyte Esterase Urine 2+ (NEG); Nitrite Urine NEG (NEG); PH 5.5 (5.0-8.0); Specific Gravity - Urine >= 1.030 (1.005-1.025); UACC Culture Trigger YES; Urine Blood 1+ (NEG); Urine Ketones NEG (NEG); Urine Protein 2+ MG/DL (NEG-TRACE)
[2021-12-20 14:21] LABS: Lactic Acid 1.1 mmol/L (0.5-2.0)
[2021-12-20 14:23] LABS: COVID-19 Test Negative (Negative)
[2021-12-20 14:31] LABS: B Type Natriuretic Peptide 22 pg/mL (<100); Troponin-I High Sensitivity 6.1 ng/L (<3.5-35.0)
[2021-12-20 14:32] LABS: RBC Urine 0-2 /HPF (0); WBC Urine 50-75 /HPF (0-4)
[2021-12-20 14:33] LABS: Bacteria Urine 1+ /LPF; WBC Clumps Urine NOTED
[2021-12-20] MEDS: 0.9 % Sodium Chloride 1,000 ML 999 ML IV (14:34)
[2021-12-20] MEDS: cefTRIAXone sodium 1 GM in 0.9 % Sodium Chloride 50 ML IV (14:36)
[2021-12-20 14:39] LABS: Alanine Aminotransferase 72 U/L (0-40); Albumin Level 3.6 g/dL (3.5-5.0); Alkaline Phosphatase 81 U/L (39-117); Anion Gap 14 (12-20); Aspartate Amino Transferase 60 U/L (5-37); Bilirubin Direct 0.3 mg/dL (0.0-0.5); Bilirubin Total 0.5 mg/dL (0.0-1.0); Blood Urea Nitrogen 23 mg/dL (9-16); Calcium 8.8 mg/dL (8.4-10.2); Carbon Dioxide 25 mmol/L (22-29); Chloride 102 mmol/L (96-108); Creatinine Clr Calc Pharmacy 52.5; Estimated Glomerular Filt Rate 43; Glucose Random 171 mg/dL (60-115); Lipase < 4 U/L (8-78); Potassium 4.3 mmol/L (3.3-5.1); Sodium 137 mmol/L (135-145); Total Protein 6.9 g/dL (6.5-8.0)
[2021-12-20 15:49] VITALS: BP 117/66; PULSE 78; RESP 16; TEMP 36.8; O2SAT 96
[2021-12-20] MEDS: vancomycin HCL 1,500 MG in 0.9 % Sodium Chloride 500 ML 333.33 MG IV (18:02)
--- NOTE | 2021-12-20 18:03 | PC.NURSE ---
pt inc of large loose stool
--- NOTE | 2021-12-20 18:34 | PM.IMHP ---
History of Present Illness Date of Service: 12/20/21 Chief Complaint: scrotal pain 81-year-old male presents from [facility] with abdominal pain fever and mild leukocytosis. Was noted to have scrotal cellulitis in the ER; was admitted for similar issues approximately [address] scan of the abdomen failed to demonstrate acute pathology. Given ceftriaxone and vancomycin in the ER. Will be admitted for further treatment Review of Systems Review of Systems: denies chest pain Denies nausea vomiting diarrhea Denies shortness of breath Admits to abdominal pain and scrotal discomfort [facility] Medical History (Updated 12/20/21 @ 18:39 by Zachary Rosario DO) Atrial fibrillation Benign prostate hyperplasia C. difficile colitis Carbuncle of gluteal region Cardiomyopathy CHF (congestive heart failure) CKD (chronic kidney disease) stage 3, GFR 30-59 ml/min COVID-19 vaccine series completed Depression Dysphagia Hypertension Left bundle branch block [facility] resident Osteoarthritis PONV (postoperative nausea and vomiting) Spinal stenosis Type 2 diabetes mellitus Urine retention Venous insufficiency Family History Other No family history of cardiovascular disease Surgical History H/O spinal fusion History of incision and drainage History of ligation of vein Social History Household Members: None Housing: Detention Housing Other:: [facility] Home resident Are you a primary career center director to a significant other at home: No Do you presently have visiting nurse or other home services: Yes (SNF) Unable to assess alcohol history related to: Unknown Alcohol intake: never Patient Tobacco Use Status: Tobacco use Unknown Advance Directives: Yes Advance Directives on File: Yes Advance Directives Date on File: 12/17/20 service: Yes Current occupational status: retired Meds Allergies Allergy/AdvReac Type Severity Reaction Status Date / Time codeine AdvReac Intermediate Vomiting Verified 09/22/21 10:48 morphine AdvReac Intermediate Vomiting Verified 09/22/21 10:48 Active Medications: Current Medications Apixaban (Apixaban 2.5 Mg Tablet) 2.5 mg PO BID ROXANN Ascorbic Acid (Ascorbic Acid 500 Mg Tablet) 1,000 mg PO DAILY ROXANN Benzocaine (Throat Lozenge, Medicated Lozenge) 1 lozenge MUCOUS MEM Q2H PRN PRN Reason: Sore Throat Bisacodyl (Bisacodyl 10 Mg Supp.Rect) 10 mg DE DAILY PRN PRN Reason: Constipation Cyanocobalamin (Cyanocobalamin (Vitamin B-12) 1,000 Mcg Tablet) 1,000 mcg PO DAILY [facility] Diphenhydramine HCl (Diphenhydramine Hcl 25 Mg Tablet) 25 mg PO Q6H PRN PRN Reason: PURITIS Escitalopram Oxalate (Escitalopram Oxalate 10 Mg Tablet) 10 mg PO DAILY [facility] Fluticasone Propionate (Fluticasone Propionate Nasal 16 Gm [place]) 1 spray NOSTRIL-B DAILY [facility] Piperacillin Sod/Tazobactam (Sod 3.375 gm/ Sodium Chloride) 50 mls @ 100 mls/hr IV Q6H [facility] Vancomycin HCl 1,250 mg/ (Sodium Chloride) 250 mls @ 166.667 mls/hr IV Q24H [facility] Loperamide HCl (Loperamide Hcl 2 Mg Capsule) 2 mg PO Q3H PRN PRN Reason: Diarrhea Multivitamins/Vitamin C (Multivitamin Tablet) 1 tab PO DAILY [facility] Non-Formulary Medication (Methenamine Hippurate) 1 gm PO DAILY [facility] Oxycodone HCl (Oxycodone Hcl Immed Release 5 Mg Tablet) 10 mg PO BID [facility] Oxycodone HCl (Oxycodone Hcl Immed Release 5 Mg Tablet) 10 mg PO Q6H PRN PRN Reason: Pain, Moderate (Pain Scale 4-6 Pharmacy Consult (Consult Rx Perform Med Rec) 1 each MISCELLANE ONCE PRN PRN Reason: Consult order Pharmacy Consult (Consult Rx Perform Med Rec) 1 each MISCELLANE ONCE PRN PRN Reason: Consult order Pharmacy Consult (Consult Rx Vancomycin Dosing) 1 each MISCELLANE DAILY PRN PRN Reason: Consult order Sodium Biphosphate/Sodium Phosphate (Sodium Phosphate,Ward-Dibasic 133 Ml Enema) 118 ml DE DAILY PRN PRN Reason: Constipation Sodium Chloride (0.9 % Sodium Chloride Flush 3 Ml Syringe) 3 ml IVFLUSH QSHIFT [facility] Home Medications Medication Instructions Recorded Confirmed Last Taken Type acetaminophen 325 mg tablet 650 mg PO Q4H PRN 12/17/20 12/20/21 12/20/21 History bisacodyl 10 mg rectal suppository 10 mg DE DAILY PRN 12/17/20 12/20/21 12/05/20 History cyanocobalamin (vitamin B-12) 1,000 mcg PO DAILY 12/17/20 12/20/21 12/20/21 History 1,000 mcg tablet escitalopram oxalate 10 mg tablet 10 mg PO DAILY 12/17/20 12/20/21 12/20/21 History fluticasone propionate 50 1 spray INTRANASAL DAILY 12/17/20 12/20/21 12/20/21 History mcg/actuation nasal spray,suspension loperamide 2 mg tablet 2 mg PO Q3H PRN 12/17/20 12/20/21 12/10/20 History magnesium hydroxide 400 mg/5 mL 30 ml PO BEDTIME PRN 12/17/20 12/20/21 12/04/20 History oral suspension (Milk of Magnesia) multivitamin 1 tab PO DAILY 12/17/20 12/20/21 12/20/21 History oxycodone 5 mg tablet 10 mg PO BID 12/17/20 12/20/21 12/20/21 History oxycodone 5 mg tablet 10 mg PO Q6H PRN 12/17/20 12/20/21 Unknown History sodium phosphates 19 gram-7 118 ml DE DAILY PRN 12/17/20 12/20/21 Unknown History gram/118 mL enema (Fleet Enema) apixaban 2.5 mg tablet 2.5 mg PO BID 08/17/21 12/20/21 12/20/21 History benzocaine 15 mg-menthol 3.6 mg 1 humera MUCOUS MEMBRANE Q2H PRN 12/20/21 12/20/21 Unknown History lozenges diphenhydramine HCl 25 mg tablet 25 mg PO Q6H PRN 12/20/21 12/20/21 12/19/21 History Physical Exam Vital Signs and Narrative: Vital Signs: Last Vital Signs Temp 98.2 F 12/20/21 15:49 Pulse 78 12/20/21 15:49 Resp 16 12/20/21 15:49 BP 117/66 12/20/21 15:49 Pulse Ox 96 12/20/21 15:49 Oxygen Flow Rate 3 12/20/21 13:35 BMI result Body Mass Index 32.6 Const: Other: awake alert oriented x3 no acute distress Resp: Other: clear to auscultation bilaterally no rales rhonchi or wheezes Cardio: Other: no S4; positive S1-S2; no S3 murmurs rubs or gallops GI: Other: soft nontender nondistended normoactive bowel sounds. Suprapubic site clean dry and intact. Catheter changed today : Other: edematous scrotum and penis with diffuse erythema Extrem: Other: 1+ edema bilaterally Results Labs CBC and Chem 7: 12/20/21 13:58 12/20/21 13:57 Labs: Laboratory Results - last 24 hr 12/20/21 12/20/21 12/20/21 13:50 13:57 13:57 MCV MCH MCHC RDW Plt Count MPV Immature Gran % (Auto) Neut % (Auto) Lymph % (Auto) Ward % (Auto) Eos % (Auto) Baso % (Auto) Lymph # (Auto) Ward # (Auto) Eos # (Auto) Baso # (Auto) Abs Immat Gran (auto) Absolute Neuts (auto) Absolute Nucleated RBC Nucleated RBC % (auto) Anion Gap 14 Estim Creat Clear Calc 52.5 Estimated GFR 43 Random Glucose 171 H Lactic Acid Calcium 8.8 Total Bilirubin 0.5 Direct Bilirubin 0.3 AST 60 H ALT 72 H Alkaline Phosphatase 81 B-Natriuretic Peptide 22 Total Protein 6.9 Albumin 3.6 Lipase < 4 L Urine Color Urine Appearance Urine pH Ur Specific [place] Urine Protein Urine Glucose (UA) Urine Ketones Urine Blood Urine Nitrite Ur Leukocyte Esterase Urine RBC Urine WBC Urine WBC Clumps Ur Squamous Epith Cells Urine Bacteria COVID-19 (RU) Negative COVID-19 Clin Com See Note 12/20/21 12/20/21 12/20/21 13:57 13:58 14:06 MCV 99.7 H MCH 31.6 MCHC 31.7 RDW 13.7 Plt Count 236 MPV 8.8 L Immature Gran % (Auto) 0.6 H Neut % (Auto) 86.6 H Lymph % (Auto) 3.8 L Ward % (Auto) 8.3 Eos % (Auto) 0.5 Baso % (Auto) 0.2 Lymph # (Auto) 0.6 L Ward # (Auto) 1.2 Eos # (Auto) 0.1 Baso # (Auto) 0.0 Abs Immat Gran (auto) 0.09 H Absolute Neuts (auto) 12.8 H Absolute Nucleated RBC 0.000 Nucleated RBC % (auto) 0.0 Anion Gap Estim Creat Clear Calc Estimated GFR Random Glucose Lactic Acid 1.1 Calcium Total Bilirubin Direct Bilirubin AST ALT Alkaline Phosphatase B-Natriuretic Peptide Total Protein Albumin Lipase Urine Color YELLOW Urine Appearance HAZY Urine pH 5.5 Ur Specific [place] >= 1.030 H Urine Protein 2+ H Urine Glucose (UA) NEG Urine Ketones NEG Urine Blood 1+ H Urine Nitrite NEG Ur Leukocyte Esterase 2+ H Urine RBC 0-2 Urine WBC 50-75 H Urine WBC Clumps NOTED Ur Squamous Epith Cells NONE Urine Bacteria 1+ COVID-19 (RU) COVID-19 Clin Com Imaging Radiologist's Impressions: Impressions Chest X-Ray 12/20/21 13:50 IMPRESSION: Low lung volumes. Question left perihilar infiltrate. Abdomen/Pelvis CT 12/20/21 15:35 IMPRESSION: Severe constipation/fecal impaction. 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 Gallstones. Left renal stones. Suprapubic tube in the bladder. Fleischner guidelines were followed. Assessment and Plan (1) Cellulitis, scrotum: Status: Acute (2) CKD (chronic kidney disease) stage 3, GFR 30-59 ml/min: Status: Acute (3) Hypotonic neurogenic bladder: Status: Acute (4) Acute UTI: Status: Acute Plan 81-year-old man presents with fever leukocytosis and an enlarged erythematous scrotum and penis consistent with scrotal cellulitis. Was admitted approximately 1 year ago for the same. Urine also contains active sediment. . . Culture sent. 1. Scrotal Cellulitis -Zosyn/Vanco -BCx2/Urine culture pending -scrotal US in am to r/out abcess 2. DMII -currently on no therapies -sliding scale Lispro -adjust as indicated 3. CKD 3 -at [place] -follow renals/divalents 4. PAF - continue apixaban -rate control adequate 5. Back pain(chronic) -continue outpatient oxycodone dosing -adjust as indicated Full Code Apixaban Will require a minimum of 2 midnights going forward for IV antibiotics for treatment of scrotal cellulitis. Quality Stroke Does the patient have a stroke diagnosis?: No VTE Prior VTE?: No VTE Risk Level:: Medical - moderate - high VTE Device Contraindication: Treatment Not Indicated VTE Drug Contraindication: N/A - Med Ordered
[2021-12-20] MEDS: Piperacillin Sodium/Tazobactam 3.375 GM in 0.9 % Sodium Chloride 50 ML IV ×2 (19:08→23:50)
[2021-12-20] MEDS: oxyCODONE HCl Immed Release 5 MG TABLET 10 MG PO (19:52)
[2021-12-20 20:13] VITALS: BP 143/81; PULSE 77; RESP 16; TEMP 36.8; O2SAT 93
[2021-12-20 21:19] LABS: Glucose, Whole Blood 132 mg/dL (60-115)
[2021-12-20] MEDS: Apixaban 2.5 MG TABLET PO (21:22)
[2021-12-20 22:06] VITALS: BP 133/46; PULSE 65; RESP 16; O2SAT 99
[2021-12-21 00:21] VITALS: BP 118/55; PULSE 77; RESP 20; TEMP 36.7; O2SAT 92
[2021-12-21] MEDS: 0.9 % Sodium Chloride Flush 3 ML SYRINGE IVFLUSH ×2 (00:21→23:32)
--- NOTE | 2021-12-21 00:42 | PC.NURSE ---
Pt arrived from [facility] around midnight. A&Ox2, self and place. Pleasant/cooperative. Speech is clear and appropriate. LS-CTA. No cough or sob noted. BS+. Pt incontinent of brown liquid stool. Scrotum red and edematous. Supra pubic cath with clear/yellow urine. BLE's discolored skin. Pt settled in bed with warm blanket and bed alarm on. No c/o pain. Will continue to monitor.
[2021-12-21] MEDS: Piperacillin Sodium/Tazobactam 3.375 GM in 0.9 % Sodium Chloride 50 ML IV ×4 (05:12→23:30)
[2021-12-21 07:31] VITALS: BP 130/56; PULSE 63; RESP 14; O2SAT 95
[2021-12-21 07:32] LABS: Glucose, Whole Blood 91 mg/dL (60-115)
[2021-12-21 08:09] LABS: MANUAL DIFF FLAG NO
[2021-12-21 08:12] LABS: Basophils Absolute Auto 0.1 X10*3/uL (0.0-0.2); Basophils Percent Auto 0.4 % (0-2); Eosinophils Absolute Auto 0.2 X10*3/uL (0.0-0.4); Eosinophils Percent Auto 1.5 % (0-4); Hematocrit 36.3 % (42.0-52.0); Hemoglobin 11.2 g/dl (14.0-18.0); Imm Gran Abs Auto 0.07 X10*3/uL (0.00-0.03); Imm Gran Pct Auto 0.5 % (0.0-0.4); Lymphocytes Percent Auto 7.4 % (20-40); Mean Corpuscular HGB Conc 30.9 g/dl (31.0-36.0); Mean Corpuscular Hemoglobin 31.5 pg (27.0-33.0); Monocytes Absolute Auto 1.2 X10*3/uL (0.1-1.2); Monocytes Percent Auto 8.8 % (2-11); Neutrophils Absolute Auto 11.1 x10*3/uL (2.0-8.3); Neutrophils Percent Auto 81.4 % (45-73); Platelet Count 222 X10*3/uL (160-400); Red Blood Count 3.56 X10*6/uL (4.60-5.80); Red Cell Distribution Width 13.7 % (11.0-16.0); White Blood Count 13.6 X10*3/uL (4.8-10.8)
[2021-12-21] MEDS: Escitalopram Oxalate 10 MG TABLET PO (08:19)
[2021-12-21] MEDS: Cyanocobalamin (Vitamin B-12) 1,000 MCG TABLET 1000 MCG PO (08:19)
[2021-12-21] MEDS: oxyCODONE HCl Immed Release 5 MG TABLET 10 MG PO ×2 (08:19→21:54)
[2021-12-21] MEDS: Ascorbic Acid 500 MG TABLET 1000 MG PO (08:19)
[2021-12-21] MEDS: Apixaban 2.5 MG TABLET PO ×2 (08:19→21:54)
[2021-12-21] MEDS: Multivitamin TABLET 1 TAB PO (08:19)
[2021-12-21 08:26] LABS: Alanine Aminotransferase 58 U/L (0-40); Albumin Level 3.3 g/dL (3.5-5.0); Alkaline Phosphatase 75 U/L (39-117); Anion Gap 12 (12-20); Aspartate Amino Transferase 39 U/L (5-37); Bilirubin Total 0.8 mg/dL (0.0-1.0); Blood Urea Nitrogen 20 mg/dL (9-16); Calcium 8.7 mg/dL (8.4-10.2); Carbon Dioxide 27 mmol/L (22-29); Chloride 103 mmol/L (96-108); Creatinine Clr Calc Pharmacy 53.8; Estimated Glomerular Filt Rate 44; Glucose Fasting 135 mg/dL (60-99); Potassium 4.2 mmol/L (3.3-5.1); Sodium 138 mmol/L (135-145); Total Protein 6.5 g/dL (6.5-8.0)
--- NOTE | 2021-12-21 09:45 | PHA.PROG ---
Admission Date/Time: December 20, 2021 17:47 Indication: Cellulitis Weight in k kg Adjusted body weight in K.46 kg [place] body weight in K.1 kg Obesity Dosing Indication % IBW: 140% Serum Creatinine - Last 168 Hours 12/20/21 12/21/21 13:57 07:54 Creatinine 1.56 H 1.52 H Estimated CrCl and GFR - Last 168 Hours 12/20/21 12/21/21 13:57 07:54 Estim Creat Clear Calc 52.5 53.8 Estimated GFR 43 44 Vancomycin Loading Dose: 1500 mg Current Vancomycin Dosing Regimen: 1250 mg Q24H Date and Time for next Vancomycin Level to be drawn: 12/23 @ 1400 Pharmacist Comments on Vancomycin Plan: Patient is obese and elderly with CKD stage 3. Since patient % IBW > 120 will decrease dose to vancomycin 1000 mg Q24H. Expected AUC 478 with a trough of 13.4 Pharmacy will continue to monitor renal function daily Melissa Porter Vancomycin dosing will take advantage of [employer] as a clinical decision support tool that uses Bayesian modeling to calculate individual patient's pharmacokinetic parameters and forecast the patient's drug concentration time course with the target goal AUC 24 range of 400 - 600 mg/L/hr.
--- NOTE | 2021-12-21 10:06 | PC.NURSE ---
Pt incontinent of large amount of liquid stool. Incontinence care provided. suprapubic cath remains in place. Pt resting in hospital bed and repositioned per request. No insulin given per sliding scale. Medicated per NOV. Pt alert to person and place. scrotum and penis still edematous with +2-+3 edema noted. pt resting between care. callbell and belonging within reach.
--- NOTE | 2021-12-21 10:52 | P.CDIC_ITS ---
CDI Concurrent Query Documentation Clarification: PHYSICIAN'S DOCUMENTATION REQUEST Date of Query: 12/21/21 1053 Patient Name: Clarence Alcantar Admit Date: 12/20/21 Dear Doctor, A review of the medical record indicates additional documentation may be needed. Please review below and update the documentation accordingly. Clinical Indicators: Risk Factors/Clinical Indicators/Treatments ED: Plan: Simple UTI with SIRS criteria (fever, leukocytes) no severe sepsis. IV fluids, Ceftriaxone, Vancomycin Please indicate in your progress notes if you are in agreement that the above diagnosis is valid for this patient: SIRS, treating, rule out, resolved, poa etc. * Yes, [ ] is a valid diagnosis for this patient * No, [ ] is a not a valid diagnosis for this patient * Other * Unable to determine Use of terms such as suspected, likely, concern for, or probable (associated with a specific diagnosis that is being evaluated, monitored, or treated as if it exists) are acceptable and can be coded in the inpatient setting, when documented at the time of discharge. Thank you, Fina Dorsey CCS, CDIS Extension: [phone] Please use your independent medical judgment in providing your response. THIS QUERY IS PART OF THE PERMANENT MEDICAL RECORD Provider Response: Other Other Diagnosis: Sirs resolved
--- NOTE | 2021-12-21 11:41 | MHC.CM.PN ---
pt in ed called and spoke with pts hcp ramiro who who confirms that he stef lt resident at [facility] and that he will be returning there when he is dc d pt is vax dc plan return to [facility]
[2021-12-21 13:18] LABS: Glucose, Whole Blood 97 mg/dL (60-115)
[2021-12-21] MEDS: vancomycin HCL 1,000 MG in 0.9 % Sodium Chloride 250 ML 270 MG IV (15:36)
--- NOTE | 2021-12-21 15:41 | P.PNIM_ITS ---
Subjective Subjective Date of Service: 12/21/21 Review of Systems denies chest pain Denies nausea vomiting diarrhea Denies shortness of breath Admits to abdominal pain and scrotal discomfort Physical Exam Vital Signs: Vital Signs: Last Vital Signs Temp 98.0 F 12/21/21 00:21 Pulse 63 12/21/21 07:31 Resp 14 12/21/21 07:31 BP 130/56 L 12/21/21 07:31 Pulse Ox 95 12/21/21 07:31 Oxygen Flow Rate 3 12/20/21 13:35 BMI result Body Mass Index 32.6 Const: Other: awake alert oriented x3 no acute distress Resp: Other: clear to auscultation bilaterally no rales rhonchi or wheezes Cardio: Other: no S4; positive S1-S2; no S3 murmurs rubs or gallops GI: Other: soft nontender nondistended normoactive bowel sounds. Suprapubic site clean dry and intact. Catheter changed today : Other: edematous scrotum and penis with diffuse erythema Extrem: Other: 1+ edema bilaterally Objective Data Active Medications Apixaban (Apixaban 2.5 Mg Tablet) 2.5 mg PO BID [facility] Last Admin: 12/21/21 08:19 Dose: 2.5 mg Documented by: RASHIDA Ascorbic Acid (Ascorbic Acid 500 Mg Tablet) 1,000 mg PO DAILY [facility] Last Admin: 12/21/21 08:19 Dose: 1,000 mg Documented by: RASHIDA Benzocaine (Throat Lozenge, Medicated Lozenge) 1 lozenge MUCOUS MEM Q2H PRN PRN Reason: Sore Throat Bisacodyl (Bisacodyl 10 Mg Supp.Rect) 10 mg [place] DAILY PRN PRN Reason: Constipation Cyanocobalamin (Cyanocobalamin (Vitamin B-12) 1,000 Mcg Tablet) 1,000 mcg PO DAILY [facility] Last Admin: 12/21/21 08:19 Dose: 1,000 mcg Documented by: RASHIDA Diphenhydramine HCl (Diphenhydramine Hcl 25 Mg Tablet) 25 mg PO Q6H PRN PRN Reason: PURITIS Escitalopram Oxalate (Escitalopram Oxalate 10 Mg Tablet) 10 mg PO DAILY [facility] Last Admin: 12/21/21 08:19 Dose: 10 mg Documented by: RASHIDA Fluticasone Propionate (Fluticasone Propionate Nasal 16 Gm [place]) 1 spray NOSTRIL-B DAILY [facility] Last Admin: 12/21/21 08:26 Dose: Not Given Documented by: RASHIDA Non-Admin Reason: Med Not Available Piperacillin Sod/Tazobactam (Sod 3.375 gm/ Sodium Chloride) 50 mls @ 100 mls/hr IV Q6H [facility] Last Infusion: 12/21/21 13:19 Dose: 0 mls/hr Documented by: RASHIDA Vancomycin HCl 1,000 mg/ (Sodium Chloride) 270 mls @ 270 mls/hr IV Q24H [facility] Last Admin: 12/21/21 15:36 Dose: 270 mls/hr Documented by: RASHIDA Insulin Human Lispro (Insulin Lispro 100 Unit/Ml 3 Ml Vial) 0 unit SUBCUT QIDACHS [facility]; Protocol Last Admin: 12/21/21 13:18 Dose: Not Given Documented by: RASHIDA Non-Admin Reason: No Insulin Coverage Loperamide HCl (Loperamide Hcl 2 Mg Capsule) 2 mg PO Q3H PRN PRN Reason: Diarrhea Multivitamins/Vitamin C (Multivitamin Tablet) 1 tab PO DAILY [facility] Last Admin: 12/21/21 08:19 Dose: 1 tab Documented by: RASHIDA Non-Formulary Medication (Methenamine Hippurate) 1 gm PO DAILY [facility] Oxycodone HCl (Oxycodone Hcl Immed Release 5 Mg Tablet) 10 mg PO BID [facility] Last Admin: 12/21/21 08:19 Dose: 10 mg Documented by: RASHIDA Oxycodone HCl (Oxycodone Hcl Immed Release 5 Mg Tablet) 10 mg PO Q6H PRN PRN Reason: Pain, Moderate (Pain Scale 4-6 Last Admin: 12/20/21 19:52 Dose: 10 mg Documented by: AL Pharmacy Consult (Consult Rx Perform Med Rec) 1 each MISCELLANE ONCE PRN PRN Reason: Consult order Pharmacy Consult (Consult Rx Perform Med Rec) 1 each MISCELLANE ONCE PRN PRN Reason: Consult order Pharmacy Consult (Consult Rx Vancomycin Dosing) 1 each MISCELLANE DAILY PRN PRN Reason: Consult order Sodium Biphosphate/Sodium Phosphate (Sodium Phosphate,[place]-Dibasic 133 Ml Enema) 118 ml [place] DAILY PRN PRN Reason: Constipation Sodium Chloride (0.9 % Sodium Chloride Flush 3 Ml Syringe) 3 ml IVFLUSH QSHIFT [facility] Last Admin: 12/21/21 15:39 Dose: Not Given Documented by: RASHIDA Non-Admin Reason: IV Running Labs CBC & Chem 7: 12/21/21 07:54 12/21/21 07:54 Labs: Laboratory Results - last 24 hr 12/20/21 12/20/21 12/20/21 13:57 13:58 21:16 WBC 14.8 H MCV MCH MCHC RDW Plt Count MPV Immature Gran % (Auto) Neut % (Auto) Lymph % (Auto) [place] % (Auto) Eos % (Auto) Baso % (Auto) Lymph # (Auto) [place] # (Auto) Eos # (Auto) Baso # (Auto) Abs Immat Gran (auto) Absolute Neuts (auto) Absolute Nucleated RBC Nucleated RBC % (auto) Anion Gap Creatinine 1.56 H Estim Creat Clear Calc Estimated GFR POC Glucose 132 H Fasting Glucose Calcium Total Bilirubin AST ALT Alkaline Phosphatase Total Protein Albumin 12/21/21 12/21/21 12/21/21 07:19 07:54 07:54 WBC 13.6 H MCV 102.0 H MCH 31.5 MCHC 30.9 L RDW 13.7 Plt Count 222 MPV 9.0 L Immature Gran % (Auto) 0.5 H Neut % (Auto) 81.4 H Lymph % (Auto) 7.4 L [place] % (Auto) 8.8 Eos % (Auto) 1.5 Baso % (Auto) 0.4 Lymph # (Auto) 1.0 L [place] # (Auto) 1.2 Eos # (Auto) 0.2 Baso # (Auto) 0.1 Abs Immat Gran (auto) 0.07 H Absolute Neuts (auto) 11.1 H Absolute Nucleated RBC 0.000 Nucleated RBC % (auto) 0.0 Anion Gap 12 Creatinine 1.52 H Estim Creat Clear Calc 53.8 Estimated GFR 44 POC Glucose 91 Fasting Glucose 135 H Calcium 8.7 Total Bilirubin 0.8 AST 39 H ALT 58 H Alkaline Phosphatase 75 Total Protein 6.5 Albumin 3.3 L 12/21/21 13:15 WBC MCV MCH MCHC RDW Plt Count MPV Immature Gran % (Auto) Neut % (Auto) Lymph % (Auto) [place] % (Auto) Eos % (Auto) Baso % (Auto) Lymph # (Auto) [place] # (Auto) Eos # (Auto) Baso # (Auto) Abs Immat Gran (auto) Absolute Neuts (auto) Absolute Nucleated RBC Nucleated RBC % (auto) Anion Gap Creatinine Estim Creat Clear Calc Estimated GFR POC Glucose 97 Fasting Glucose Calcium Total Bilirubin AST ALT Alkaline Phosphatase Total Protein Albumin Microbiology Microbiology Results: Microbiology 12/20/21 14:39 Urine Culture - Preliminary Urine Catheterized - Straight Catheter Culture in progress. Assessment and Plan (1) Cellulitis, scrotum: Status: Acute (2) CKD (chronic kidney disease) stage 3, GFR 30-59 ml/min: Status: Acute Plan 81-year-old man presents with fever leukocytosis and an enlarged erythematous scrotum and penis consistent with scrotal cellulitis. Was admitted approximatel y 1 year ago for the same. Urine also contains active sediment. . . Culture sent. 1. Scrotal Cellulitis -Zosyn/Vanco(2) -BCx2/Urine culture pending -ultrasound failed to demonstrate abscess 2. DMII -currently on no therapies -sliding scale Lispro -adjust as indicated 3. CKD 3 -at [place] -follow renals/divalents 4. PAF - continue apixaban -rate control adequate 5. Back pain(chronic) -continue outpatient oxycodone dosing -adjust as indicated Full Code Apixaban Will require a minimum of 2 midnights going forward for IV antibiotics for treatment of scrotal cellulitis. Quality Stroke Does the patient have a stroke diagnosis?: No VTE Prior VTE?: No VTE Risk Level:: Medical - moderate - high VTE Device Contraindication: Treatment Not Indicated VTE Drug Contraindication: N/A - Med Ordered
[2021-12-21 17:38] VITALS: BP 117/58; PULSE 68; RESP 18; TEMP 36.4; O2SAT 94
[2021-12-21 18:02] LABS: Glucose, Whole Blood 132 mg/dL (60-115)
--- NOTE | 2021-12-21 20:14 | PC.NURSE ---
Pt A&OX3, Pleasant and cooperative. Particular with care (room too small, doesn't like oxygen tube to touch his chest-has to be above [place], etc.). Speech is clear and appropriate. Pt c/o tubing from [place]. Gauze placed as padding behind patients ears for comfort. LS-CTA. Pt denies cough/SOB. BS+. Pt incontinent of liquid brown stool, on IV antibiotics. Pt tolerating diet. Scrotum and penis red and edematous. F/C patent and draining clear/shania urine to gravity. PP+, +LE edema and discoloration. Pt repositioned Q2 hours. Bed alarm on for safety. Will continue to monitor.
[2021-12-21 21:44] LABS: Glucose, Whole Blood 119 mg/dL (60-115)
[2021-12-22] MEDS: Piperacillin Sodium/Tazobactam 3.375 GM in 0.9 % Sodium Chloride 50 ML IV ×4 (05:33→23:30)
[2021-12-22 05:36] VITALS: BP 105/45; PULSE 67; RESP 18; O2SAT 96
[2021-12-22 06:01] LABS: MANUAL DIFF FLAG NO
[2021-12-22 06:12] LABS: Basophils Percent Auto 0.3 % (0-2); Eosinophils Absolute Auto 0.5 X10*3/uL (0.0-0.4); Eosinophils Percent Auto 4.6 % (0-4); Hematocrit 32.8 % (42.0-52.0); Hemoglobin 10.2 g/dl (14.0-18.0); Imm Gran Abs Auto 0.06 X10*3/uL (0.00-0.03); Imm Gran Pct Auto 0.6 % (0.0-0.4); Lymphocytes Percent Auto 10.6 % (20-40); Mean Corpuscular HGB Conc 31.1 g/dl (31.0-36.0); Mean Corpuscular Hemoglobin 31.8 pg (27.0-33.0); Mean Corpuscular Volume 102.2 fL (80.0-98.0); Mean Platelet Volume 9.1 fL (9.4-12.4); Monocytes Percent Auto 9.8 % (2-11); Neutrophils Absolute Auto 7.3 x10*3/uL (2.0-8.3); Neutrophils Percent Auto 74.1 % (45-73); Platelet Count 219 X10*3/uL (160-400); Red Blood Count 3.21 X10*6/uL (4.60-5.80); Red Cell Distribution Width 13.6 % (11.0-16.0); White Blood Count 9.8 X10*3/uL (4.8-10.8)
[2021-12-22 06:42] LABS: Alanine Aminotransferase 42 U/L (0-40); Albumin Level 3.1 g/dL (3.5-5.0); Alkaline Phosphatase 64 U/L (39-117); Anion Gap 12 (12-20); Aspartate Amino Transferase 26 U/L (5-37); Bilirubin Total 0.5 mg/dL (0.0-1.0); Blood Urea Nitrogen 20 mg/dL (9-16); Calcium 8.6 mg/dL (8.4-10.2); Carbon Dioxide 26 mmol/L (22-29); Chloride 105 mmol/L (96-108); Estimated Glomerular Filt Rate 46; Glucose Fasting 84 mg/dL (60-99); Sodium 139 mmol/L (135-145); Total Protein 6.1 g/dL (6.5-8.0)
[2021-12-22 08:09] LABS: Glucose, Whole Blood 83 mg/dL (60-115)
--- NOTE | 2021-12-22 08:25 | HE.PHANOTE ---
RE Vancomycin Continue current regimen 1000mg q24h. Next trough 12/23 @1400 Thanks Jordon
[2021-12-22] MEDS: Apixaban 2.5 MG TABLET PO ×2 (09:33→22:46)
[2021-12-22] MEDS: oxyCODONE HCl Immed Release 5 MG TABLET 10 MG PO ×2 (09:33→22:46)
[2021-12-22] MEDS: 0.9 % Sodium Chloride Flush 3 ML SYRINGE IVFLUSH ×3 (09:34→22:51)
[2021-12-22 09:36] VITALS: BP 117/57; PULSE 68; RESP 18; O2SAT 95
[2021-12-22 11:49] LABS: Glucose, Whole Blood 120 mg/dL (60-115)
[2021-12-22 12:00] VITALS: BP 117/50; PULSE 65; RESP 18; TEMP 36.6
--- NOTE | 2021-12-22 12:56 | HO.PM.IMPN ---
Subjective Subjective Date of Service: 12/22/21 Review of Systems denies chest pain Denies nausea vomiting diarrhea Denies shortness of breath Admits to abdominal pain and scrotal discomfort Physical Exam Vital Signs: Vital Signs: Last Vital Signs Temp 97.8 F 12/22/21 12:00 Pulse 65 12/22/21 12:00 Resp 18 12/22/21 12:00 BP 117/50 L 12/22/21 12:00 Pulse Ox 95 12/22/21 09:36 Oxygen Flow Rate 3 12/20/21 13:35 BMI result Body Mass Index 32.6 Const: Other: awake alert oriented x3 no acute distress Resp: Other: clear to auscultation bilaterally no rales rhonchi or wheezes Cardio: Other: no S4; positive S1-S2; no S3 murmurs rubs or gallops GI: Other: soft nontender nondistended normoactive bowel sounds. Suprapubic site clean dry and intact. Catheter changed today : Other: edematous scrotum and penis with diffuse erythema Extrem: Other: 1+ edema bilaterally Objective Data Active Medications Apixaban (Apixaban 2.5 Mg Tablet) 2.5 mg PO BID [facility] Last Admin: 12/22/21 09:33 Dose: 2.5 mg Documented by: NICK Ascorbic Acid (Ascorbic Acid 500 Mg Tablet) 1,000 mg PO DAILY [facility] Last Admin: 12/22/21 09:41 Dose: Not Given Documented by: NICK Non-Admin Reason: Patient Refused Benzocaine (Throat Lozenge, Medicated Lozenge) 1 lozenge MUCOUS MEM Q2H PRN PRN Reason: Sore Throat Bisacodyl (Bisacodyl 10 Mg Supp.Rect) 10 mg [place] DAILY PRN PRN Reason: Constipation Cyanocobalamin (Cyanocobalamin (Vitamin B-12) 1,000 Mcg Tablet) 1,000 mcg PO DAILY [facility] Last Admin: 12/22/21 09:41 Dose: Not Given Documented by: NICK Non-Admin Reason: Patient Refused Diphenhydramine HCl (Diphenhydramine Hcl 25 Mg Tablet) 25 mg PO Q6H PRN PRN Reason: PURITIS Escitalopram Oxalate (Escitalopram Oxalate 10 Mg Tablet) 10 mg PO DAILY [facility] Last Admin: 12/22/21 09:40 Dose: Not Given Documented by: NICK Non-Admin Reason: Patient Refused Fluticasone Propionate (Fluticasone Propionate Nasal 16 Gm [place]) 1 spray NOSTRIL-B DAILY [facility] Last Admin: 12/22/21 09:40 Dose: Not Given Documented by: NICK Non-Admin Reason: Patient Refused Piperacillin Sod/Tazobactam (Sod 3.375 gm/ Sodium Chloride) 50 mls @ 100 mls/hr IV Q6H [facility] Last Infusion: 12/22/21 06:03 Dose: 0 mls/hr Documented by: FINA Vancomycin HCl 1,000 mg/ (Sodium Chloride) 270 mls @ 270 mls/hr IV Q24H [facility] Last Infusion: 12/21/21 16:29 Dose: 0 mls/hr Documented by: RASHIDA Insulin Human Lispro (Insulin Lispro 100 Unit/Ml 3 Ml Vial) 0 unit SUBCUT QIDACHS [facility]; Protocol Last Admin: 12/22/21 08:04 Dose: Not Given Documented by: NICK Non-Admin Reason: No Insulin Coverage Loperamide HCl (Loperamide Hcl 2 Mg Capsule) 2 mg PO Q3H PRN PRN Reason: Diarrhea Multivitamins/Vitamin C (Multivitamin Tablet) 1 tab PO DAILY [facility] Last Admin: 12/22/21 09:41 Dose: Not Given Documented by: NICK Non-Admin Reason: Patient Refused Oxycodone HCl (Oxycodone Hcl Immed Release 5 Mg Tablet) 10 mg PO BID [facility] Last Admin: 12/22/21 09:33 Dose: 10 mg Documented by: NICK Oxycodone HCl (Oxycodone Hcl Immed Release 5 Mg Tablet) 10 mg PO Q6H PRN PRN Reason: Pain, Moderate (Pain Scale 4-6 Last Admin: 12/20/21 19:52 Dose: 10 mg Documented by: AL Pharmacy Consult (Consult Rx Perform Med Rec) 1 each MISCELLANE ONCE PRN PRN Reason: Consult order Pharmacy Consult (Consult Rx Perform Med Rec) 1 each MISCELLANE ONCE PRN PRN Reason: Consult order Pharmacy Consult (Consult Rx Vancomycin Dosing) 1 each MISCELLANE DAILY PRN PRN Reason: Consult order Sodium Biphosphate/Sodium Phosphate (Sodium Phosphate,[place]-Dibasic 133 Ml Enema) 118 ml [place] DAILY PRN PRN Reason: Constipation Sodium Chloride (0.9 % Sodium Chloride Flush 3 Ml Syringe) 3 ml IVFLUSH QSHIFT [facility] Last Admin: 12/22/21 09:34 Dose: 3 ml Documented by: NICK Labs CBC & Chem 7: 12/22/21 05:32 12/22/21 05:32 Labs: Laboratory Results - last 24 hr 12/21/21 12/21/21 12/21/21 13:15 17:58 21:38 MCV MCH MCHC RDW Plt Count MPV Immature Gran % (Auto) Neut % (Auto) Lymph % (Auto) [place] % (Auto) Eos % (Auto) Baso % (Auto) Lymph # (Auto) [place] # (Auto) Eos # (Auto) Baso # (Auto) Abs Immat Gran (auto) Absolute Neuts (auto) Absolute Nucleated RBC Nucleated RBC % (auto) Anion Gap Estim Creat Clear Calc Estimated GFR POC Glucose 97 132 H 119 H Fasting Glucose Calcium Total Bilirubin AST ALT Alkaline Phosphatase Total Protein Albumin 12/22/21 12/22/21 12/22/21 05:32 05:32 07:22 MCV 102.2 H MCH 31.8 MCHC 31.1 RDW 13.6 Plt Count 219 MPV 9.1 L Immature Gran % (Auto) 0.6 H Neut % (Auto) 74.1 H Lymph % (Auto) 10.6 L [place] % (Auto) 9.8 Eos % (Auto) 4.6 H Baso % (Auto) 0.3 Lymph # (Auto) 1.0 L [place] # (Auto) 1.0 Eos # (Auto) 0.5 H Baso # (Auto) 0.0 Abs Immat Gran (auto) 0.06 H Absolute Neuts (auto) 7.3 Absolute Nucleated RBC 0.000 Nucleated RBC % (auto) 0.0 Anion Gap 12 Estim Creat Clear Calc 56.0 Estimated GFR 46 POC Glucose 83 Fasting Glucose 84 D Calcium 8.6 Total Bilirubin 0.5 AST 26 ALT 42 H Alkaline Phosphatase 64 Total Protein 6.1 L Albumin 3.1 L 12/22/21 11:37 MCV MCH MCHC RDW Plt Count MPV Immature Gran % (Auto) Neut % (Auto) Lymph % (Auto) [place] % (Auto) Eos % (Auto) Baso % (Auto) Lymph # (Auto) [place] # (Auto) Eos # (Auto) Baso # (Auto) Abs Immat Gran (auto) Absolute Neuts (auto) Absolute Nucleated RBC Nucleated RBC % (auto) Anion Gap Estim Creat Clear Calc Estimated GFR POC Glucose 120 H Fasting Glucose Calcium Total Bilirubin AST ALT Alkaline Phosphatase Total Protein Albumin Microbiology Microbiology Results: Microbiology 12/20/21 14:39 Urine Culture - Preliminary Urine Catheterized - Straight Catheter Pseudomonas species Gram positive cocci 12/20/21 14:39 Blood Culture - Preliminary Blood - Venous No growth after 24 hours. 12/20/21 13:57 Blood Culture - Preliminary Blood - Venous No growth after 24 hours. Assessment and Plan (1) Cellulitis, scrotum: Status: Acute (2) CKD (chronic kidney disease) stage 3, GFR 30-59 ml/min: Status: Acute (3) Type 2 diabetes mellitus: Status: Acute Plan 81-year-old man presents with fever leukocytosis and an enlarged erythematous scrotum and penis consistent with scrotal cellulitis. Was admitted approximately 1 year ago for the same. Urine also contains active sediment. . . Culture sent. 1. Scrotal Cellulitis/UTI -Zosyn/Vanco(3) -BCx2/Urine culture pending -ultrasound failed to demonstrate abscess 2. DMII -currently on no therapies -sliding scale Lispro -adjust as indicated 3. CKD 3 -at [place] -follow renals/divalents 4. PAF - continue apixaban -rate control adequate 5. Back pain(chronic) -continue outpatient oxycodone dosing -adjust as indicated Full Code Apixaban Will require a minimum of 2 midnights going forward for IV antibiotics for treatment of scrotal cellulitis. Quality Stroke Does the patient have a stroke diagnosis?: No VTE Prior VTE?: No VTE Risk Level:: Medical - moderate - high VTE Device Contraindication: Treatment Not Indicated VTE Drug Contraindication: N/A - Med Ordered
[2021-12-22 15:30] VITALS: BP 127/61; PULSE 75; RESP 15; TEMP 36.6; O2SAT 95
[2021-12-22] MEDS: vancomycin HCL 1,000 MG in 0.9 % Sodium Chloride 250 ML 270 MG IV (16:07)
[2021-12-22 19:01] VITALS: BP 116/71; PULSE 66; RESP 14; TEMP 36.8; O2SAT 96
[2021-12-23] VITALS: BP 109/58; PULSE 68; RESP 18; TEMP 36.8; O2SAT 95
[2021-12-23 04:00] VITALS: BP 123/59; PULSE 71; RESP 18; TEMP 36.7; O2SAT 94
[2021-12-23] MEDS: Piperacillin Sodium/Tazobactam 3.375 GM in 0.9 % Sodium Chloride 50 ML IV (05:55)
[2021-12-23] MEDS: oxyCODONE HCl Immed Release 5 MG TABLET 10 MG PO ×2 (06:24→11:01)
[2021-12-23 06:43] LABS: MANUAL DIFF FLAG NO
[2021-12-23 06:52] LABS: Basophils Percent Auto 0.4 % (0-2); Eosinophils Absolute Auto 0.3 X10*3/uL (0.0-0.4); Eosinophils Percent Auto 3.7 % (0-4); Hematocrit 33.9 % (42.0-52.0); Hemoglobin 10.6 g/dl (14.0-18.0); Imm Gran Abs Auto 0.04 X10*3/uL (0.00-0.03); Imm Gran Pct Auto 0.5 % (0.0-0.4); Lymphocytes Absolute Auto 1.2 X10*3/uL (1.2-4.9); Lymphocytes Percent Auto 14.8 % (20-40); Mean Corpuscular HGB Conc 31.3 g/dl (31.0-36.0); Mean Corpuscular Volume 102.4 fL (80.0-98.0); Mean Platelet Volume 9.3 fL (9.4-12.4); Monocytes Absolute Auto 0.7 X10*3/uL (0.1-1.2); Monocytes Percent Auto 8.8 % (2-11); Neutrophils Absolute Auto 5.7 x10*3/uL (2.0-8.3); Neutrophils Percent Auto 71.8 % (45-73); Platelet Count 227 X10*3/uL (160-400); Red Blood Count 3.31 X10*6/uL (4.60-5.80); Red Cell Distribution Width 13.6 % (11.0-16.0); White Blood Count 7.9 X10*3/uL (4.8-10.8)
[2021-12-23 07:12] LABS: Alanine Aminotransferase 34 U/L (0-40); Albumin Level 3.2 g/dL (3.5-5.0); Alkaline Phosphatase 65 U/L (39-117); Anion Gap 13 (12-20); Aspartate Amino Transferase 20 U/L (5-37); Bilirubin Total 0.6 mg/dL (0.0-1.0); Blood Urea Nitrogen 17 mg/dL (9-16); Calcium 8.5 mg/dL (8.4-10.2); Carbon Dioxide 27 mmol/L (22-29); Chloride 104 mmol/L (96-108); Creatinine Clr Calc Pharmacy 59.7; Estimated Glomerular Filt Rate 50; Glucose Fasting 92 mg/dL (60-99); Sodium 140 mmol/L (135-145); Total Protein 6.3 g/dL (6.5-8.0)
[2021-12-23 07:13] VITALS: O2SAT 94
[2021-12-23 08:00] VITALS: BP 106/51; PULSE 73; RESP 18; TEMP 36.7; O2SAT 92
--- NOTE | 2021-12-23 09:52 | MHC.CDI.CONC ---
CDI Concurrent Query Documentation Clarification: PHYSICIAN'S DOCUMENTATION REQUEST Date of Query: 12/23/21 0952 Patient Name: Clarence Alcantar Admit Date: 12/20/21 Dear Doctor, A review of the medical record indicates additional documentation may be needed. Please review below and update the documentation accordingly. Clinical Indicators: Risk Factors/Clinical Indicators/Treatments ED: 12/20 - PMH Congestive heart failure H&P: 12/20 PMH Congestive heart failure BNP 22 pitting edema 1+ Please provide further specificity regarding the most likely type and acuity of CHF you are evaluating, treating, or monitoring. If known: PMH: Type: Systolic Diastolic Combined Systolic/Diastolic Other ? please specify Unable to determine Acuity: Chronic Acute on chronic Unable to determine Use of terms such as suspected, likely, concern for, or probable (associated with a specific diagnosis that is being evaluated, monitored, or treated as if it exists) are acceptable and can be coded in the inpatient setting, when documented at the time of discharge. Thank you, Fina Dorsey [facility], CDIS Extension: [phone] Please use your independent medical judgment in providing your response. THIS QUERY IS PART OF THE PERMANENT MEDICAL RECORD Provider Response: Other Other Diagnosis: No evidence of CHF this admission
[2021-12-23] MEDS: 0.9 % Sodium Chloride Flush 3 ML SYRINGE IVFLUSH (11:01)
[2021-12-23] MEDS: Apixaban 2.5 MG TABLET PO (11:02)
[2021-12-23] MEDS: Multivitamin TABLET 1 TAB PO (11:02)
[2021-12-23] MEDS: Cyanocobalamin (Vitamin B-12) 1,000 MCG TABLET 1000 MCG PO (11:02)
[2021-12-23] MEDS: Ascorbic Acid 500 MG TABLET 1000 MG PO (11:02)
[2021-12-23] MEDS: Escitalopram Oxalate 10 MG TABLET PO (11:02)
[2021-12-23 11:17] VITALS: BP 121/61; PULSE 69; RESP 19; TEMP 36.6; O2SAT 92
--- NOTE | 2021-12-23 11:21 | PM.DS ---
DS: Providers Provider Date of Service: 12/23/21 Date of admission: 12/20/21 17:47 Date of discharge: 12/23/21 Primary care physician: Shon Brown MD DS: Diagnosis Discharge Diagnosis (1) Cellulitis, scrotum: Status: Acute (2) CKD (chronic kidney disease) stage 3, GFR 30-59 ml/min: Status: Acute (3) Type 2 diabetes mellitus: Status: Acute DS: Summary Hospital Course Hospital Course: 81-year-old male presents from [facility] with abdominal pain fever and mild leukocytosis.? Was noted to have scrotal cellulitis in the ER; was admitted for similar issues approximately [address] scan of the abdomen failed to demonstrate acute pathology.? Given ceftriaxone and vancomycin in the ER.? Will be admitted for further treatment Hospital Course Patient admitted; scrotal ultrasound failed to demonstrate the presence of an abscess. Over the next 48 hours scrotal cellulitis markedly improved and patient became more alert and now wishing to return to the [facility]. His white count has been flat he has been afebrile and a believe he is appropriate for transfer back to the [facility]. Time Spent with Patient Time attestation: Total time spent providing and/or coordinating discharge services: Discharge coordination time: Greater than 30 minutes Quality: Stroke Does the patient have a stroke diagnosis?: No Physical Exam Vital Signs: Vital Signs: Last Vital Signs Temp 97.9 F 12/23/21 11:17 Pulse 69 12/23/21 11:17 Resp 19 12/23/21 11:17 BP 121/61 12/23/21 11:17 Pulse Ox 92 12/23/21 11:17 Oxygen Flow Rate 3 12/20/21 13:35 BMI result Body Mass Index 32.6 Const: Other: awake alert oriented x3 no acute distress Resp: Other: clear to auscultation bilaterally no rales rhonchi or wheezes Cardio: Other: no S4; positive S1-S2; no S3 murmurs rubs or gallops GI: Other: soft nontender nondistended normoactive bowel sounds. Suprapubic site clean dry and intact. Catheter changed today : Other: scrotum and penis without erythema or edema Extrem: Other: 1+ edema bilaterally DS: Data Data Completed and Pending Completed studies during hospitalization [Text1]: Procedures Drainage of Inguinal Skin, External Approach (12/17/20) Labs on day of discharge: Laboratory Results - last 24 hr 12/22/21 12/23/21 12/23/21 11:37 06:17 06:18 WBC 7.9 RBC 3.31 L Hgb 10.6 L Hct 33.9 L MCV 102.4 H MCH 32.0 MCHC 31.3 RDW 13.6 Plt Count 227 MPV 9.3 L Immature Gran % (Auto) 0.5 H Neut % (Auto) 71.8 Lymph % (Auto) 14.8 L [place] % (Auto) 8.8 Eos % (Auto) 3.7 Baso % (Auto) 0.4 Lymph # (Auto) 1.2 [place] # (Auto) 0.7 Eos # (Auto) 0.3 Baso # (Auto) 0.0 Abs Immat Gran (auto) 0.04 H Absolute Neuts (auto) 5.7 Absolute Nucleated RBC 0.000 Nucleated RBC % (auto) 0.0 Sodium 140 Potassium 4.0 Chloride 104 Carbon Dioxide 27 Anion Gap 13 BUN 17 H Creatinine 1.37 Estim Creat Clear Calc 59.7 Estimated GFR 50 POC Glucose 120 H Fasting Glucose 92 Calcium 8.5 Total Bilirubin 0.6 AST 20 ALT 34 Alkaline Phosphatase 65 Total Protein 6.3 L Albumin 3.2 L Preliminary micro results at discharge 12/20/21 14:39 Blood Culture - Preliminary Blood - Venous No growth after 48 hours. 12/20/21 13:57 Blood Culture - Preliminary Blood - Venous No growth after 48 hours. 12/20/21 14:39 Urine Culture - Preliminary Urine Catheterized - Straight Catheter Pseudomonas species Gram positive cocci Discharge Plan Discharge Patient Disposition: Xfer [facility] Discharge Diagnosis: scrotal cellulitis Referrals: Shon Brown MD [Primary Care Provider] - 1 Week Discharge Medications: New amoxicillin-pot clavulanate 875-125 mg tablet 1 tab PO BID Qty: 20 0RF Continued multivitamin Tablet 1 tab PO DAILY 0RF cyanocobalamin (vitamin B-12) 1,000 mcg Tablet 1,000 mcg PO DAILY 0RF fluticasone propionate 50 mcg/actuation [place],Suspension 1 spray INTRANASAL DAILY 0RF oxycodone 5 mg Tablet 10 mg PO BID 0RF oxycodone 5 mg Tablet 10 mg PO Q6H PRN (Reason: Pain) 0RF escitalopram oxalate 10 mg Tablet 10 mg PO DAILY 0RF acetaminophen 325 mg Tablet 650 mg PO Q4H PRN (Reason: Pain) 0RF loperamide 2 mg Tablet 2 mg PO Q3H PRN (Reason: Diarrhea) 0RF magnesium hydroxide [Milk of Magnesia] 400 mg/5 mL Suspension 30 ml PO BEDTIME PRN (Reason: Constipation) 0RF bisacodyl 10 mg Suppository 10 mg ID DAILY PRN (Reason: Constipation) 0RF Rx Instructions: IF NO BOWEL MOVEMENT IN THREE DAYS OR 9 SHIFTS [place] Enema 19-7 gram/118 mL Enema 118 ml ID DAILY PRN (Reason: Constipation) 0RF apixaban 2.5 mg Tablet 2.5 mg PO BID 0RF diphenhydramine HCl 25 mg Tablet 25 mg PO Q6H PRN (Reason: PURITIS) 0RF benzocaine-menthol 15-3.6 mg Lozenge 1 humera MUCOUS MEMBRANE Q2H PRN (Reason: Sore Throat) 0RF ascorbic acid (vitamin C) 1,000 mg tablet 1 g PO DAILY 90 Days Qty: 90 1RF methenamine hippurate 1 gram tablet 1 g PO DAILY 90 Days Qty: 90 1RF Discharge Orders: Discharge Order (Routine); Ordered 12/23/21 Ordered By: Zachary Rosario Diet: advance to usual diet Activity on Discharge: As tolerated Stand Alone Forms: Patient Portal Discharge page Care Plan Goals: Complete antibiotics as ordered Health Concerns: Resume all pre-hospital medication and treatments Plan of Treatment: Complete antibiotics ; follow-up with PCP Assessment: See discharge summary
[2021-12-23 12:48] LABS: COVID-19 Test Negative (Negative); IDNOW Serial# 16C4AD1C
--- NOTE | 2021-12-23 13:05 | MHC.CM.PN ---
IMM 12/23/21 Male 81 is discharged back to [facility] via BLS. All discharge info has been faxed to the facility. The Nurse 2 Nurse has been completed. The pt tested neg for covid. The result was faxed to the facility. A hard copy was also sent with the patient.
== END 2021-12-23 13:00 | DRG 728 ==
LOC: HO.ED 17:48 → HO.EDOVER 17:52 → HO.IMC 12-22 07:33
PROVIDERS: Admitting Provider Hospitalist; Emergency Provider Emergency Medicine; PCP Internal Medicine Medical Oncology; Visit Provider Hospitalist
DX: N49.2 Inflammatory disorders of scrotum (principal); I13.0 Hypertensive heart and chronic kidney disease with heart failure and stage 1 through stage 4 chronic kidney disease, or unspecified chronic kidney disease; K59.00 Constipation, unspecified; N18.30 Chronic kidney disease, stage 3 unspecified; E11.22 Type 2 diabetes mellitus with diabetic chronic kidney disease; I48.0 Paroxysmal atrial fibrillation; G89.29 Other chronic pain; N40.0 Benign prostatic hyperplasia without lower urinary tract symptoms; M54.9 Dorsalgia, unspecified; N31.9 Neuromuscular dysfunction of bladder, unspecified; Z20.822 Contact with and (suspected) exposure to COVID-19; Z88.5 Allergy status to narcotic agent; Z79.01 Long term (current) use of anticoagulants; Z79.51 Long term (current) use of inhaled steroids; Z79.891 Long term (current) use of opiate analgesic; Z79.899 Other long term (current) drug therapy
CPT/HCPCS: 36415; 71045; 74176; 76870; 80048; 80053; 80076; 81001; 82947; 83605; 83690; 83880; 84484; 85025; 87040; 87086; 87088; 87186; 87635; 93005; 99285; J0696; J2270; J2543; J3370

== ENCOUNTER 2022-07-28 05:45 | Outpatient (REF) | payer MEDICARE, SELFPAY ==
[2022-07-28 07:50] LABS: MANUAL DIFF FLAG NO
[2022-07-28 07:53] LABS: Basophils Percent Auto 0.8 % (0-2); Eosinophils Absolute Auto 0.4 X10*3/uL (0.0-0.4); Eosinophils Percent Auto 6.6 % (0-4); Hematocrit 33.4 % (42.0-52.0); Hemoglobin 10.6 g/dl (14.0-18.0); Imm Gran Abs Auto 0.02 X10*3/uL (0.00-0.03); Imm Gran Pct Auto 0.4 % (0.0-0.4); Lymphocytes Absolute Auto 1.1 X10*3/uL (1.2-4.9); Lymphocytes Percent Auto 20.2 % (20-40); Mean Corpuscular HGB Conc 31.7 g/dl (31.0-36.0); Mean Corpuscular Hemoglobin 31.6 pg (27.0-33.0); Mean Corpuscular Volume 99.7 fL (80.0-98.0); Mean Platelet Volume 9.9 fL (9.4-12.4); Monocytes Absolute Auto 0.6 X10*3/uL (0.1-1.2); Monocytes Percent Auto 10.8 % (2-11); Neutrophils Absolute Auto 3.3 x10*3/uL (2.0-8.3); Neutrophils Percent Auto 61.2 % (45-73); Platelet Count 188 X10*3/uL (160-400); Red Blood Count 3.35 X10*6/uL (4.60-5.80); Red Cell Distribution Width 14.6 % (11.0-16.0); White Blood Count 5.3 X10*3/uL (4.8-10.8)
[2022-07-28 08:00] LABS: Estimated Average Glucose 128 mg/dL; Hemoglobin A1c % 6.1 %
[2022-07-28 08:16] LABS: Alanine Aminotransferase 11 U/L (0-40); Albumin Level 3.3 g/dL (3.5-5.0); Alkaline Phosphatase 77 U/L (39-117); Anion Gap 16 (12-20); Aspartate Amino Transferase 16 U/L (5-37); Bilirubin Total 0.4 mg/dL (0.0-1.0); Blood Urea Nitrogen 27 mg/dL (9-16); Calcium 8.4 mg/dL (8.4-10.2); Carbon Dioxide 25 mmol/L (22-29); Chloride 105 mmol/L (96-108); Estimated Glomerular Filt Rate 50; Glucose Fasting 84 mg/dL (60-99); Potassium 4.5 mmol/L (3.3-5.1); Sodium 141 mmol/L (135-145); Total Protein 6.3 g/dL (6.5-8.0)
== END 2022-07-28 05:46 | disposition home or self-care (01) ==
LOC: HO.HSH3E 05:45
PROVIDERS: Visit Provider Internal Medicine Medical Oncology
DX: N18.9 Chronic kidney disease, unspecified (principal); I50.9 Heart failure, unspecified
CPT/HCPCS: 36415; 80053; 83036; 85025

== ENCOUNTER 2022-11-28 10:25 | Outpatient (REF) | payer MEDICARE, SELFPAY | END 2022-11-28 10:26 | disposition home or self-care (01) | LOC: HO.HSH3E 10:25 | PROVIDERS: Visit Provider Internal Medicine Medical Oncology | DX: N36.8 Other specified disorders of urethra (principal) | CPT/HCPCS: 87070; 87077; 87186; 87205 ==

== ENCOUNTER 2023-05-23 09:00 | Outpatient (AMB) | payer MEDICARE, SELFPAY ==
--- NOTE | 2023-05-23 09:17 | HO.VETSHOME ---
Intake Intake Visit Reasons: Retention Intake Note: [facility] Patient is Present for Retention, Hypotonic neurogenic bladder, Scrotal Abcess Urology Medications: Methenamine Antibiotic Allergy: None Blood Thinner: Apixaban (Eliquis) Allergies codeine Adverse Reaction (Intermediate, Verified 05/23/23 09:17) Vomiting morphine Adverse Reaction (Intermediate, Verified 05/23/23 09:17) Vomiting HPI HPI Comments History of Present Illness Details Clarence is a pleasant male.? Resident of the [facility].? He seen for the following urologic conditions - neurogenic bladder - scrotal abscess Review neurogenic bladder management Minimal issues at suprapubic exchange Continue on vitamin-C 1000 mg methenamine daily to minimize colonization May extend interval between catheter exchange from 4 weeks to 6 weeks. Rate limiting factor will be incrustation on catheter Occasional proud flesh at suprapubic tube side. Recommend iodine ointment. May consider fluid flow the alpha suprapubic tube. Empty every 4 hrs. Use overnight bag if easy for nursing management overnight. Diabetic cystopathy Neurogenic bladder Suprapubic tube placed by Dr. Bradshaw 2020 Minimal issues since placement Scrotal abscess currently resolved Had been seen in hospital with scrotal abscess This was drained and has been healing by secondary intention with packing - November 2020 Still with persistently draining sinus Recommendation for examination under anesthesia during time of suprapubic change? [facility] Medical History Atrial fibrillation Benign prostate hyperplasia C. difficile colitis Carbuncle of gluteal region Cardiomyopathy CHF (congestive heart failure) CKD (chronic kidney disease) stage 3, GFR 30-59 ml/min COVID-19 vaccine series completed Depression Dysphagia Hypertension Left bundle branch block longterm resident Osteoarthritis PONV (postoperative nausea and vomiting) Spinal stenosis Type 2 diabetes mellitus Urine retention Venous insufficiency Surgical History H/O spinal fusion History of incision and drainage History of ligation of vein Family History Other No family history of cardiovascular disease Social History Household Members: None Housing: Prison Housing Other:: [facility] resident Are you a primary respite care provider to a significant other at home: No Do you presently have visiting nurse or other home services: Yes (SNF) Unable to assess alcohol history related to: Unknown Alcohol intake: never Patient Tobacco Use Status: Tobacco use Unknown Advance Directives Date on File: 12/17/20 service: Yes Current occupational status: retired Review of Systems Const Denies chills and Denies fever(s) Card Reports no additional complaints and Denies syncope Resp Denies cough GI Denies abdominal pain and Denies heartburn Reports as per HPI and Denies change in libido Neuro Denies syncope Psych Denies change in libido Endo Denies change in libido Physical Exam Const General: cooperative, healthy appearing, comfortable and no acute distress Orientation/consciousness: patient oriented x3 HEENT Face and sinus: Yes normal facial exam Mouth: moist mucous membranes Neck Neck: Yes normal visual inspection, Yes full ROM and Yes trachea midline Chest Chest palpation & inspection: normal inspection of the chest Resp Effort & Inspection: normal respiratory effort, able to speak in complete sentences and no respiratory distress GI Inspection: Yes normal to inspection Back/Spine/Pelvis Cervical Spine: normal cervical lordosis Thoracic/Lumbar Spine: thoracic and lumbar spine normal to inspection Skin General skin exam: no rashes or lesions noted Neuro General: patient oriented x3, gait normal, tone normal and moves all extremities Extrem General: Yes normal to inspection and Yes capillary refill normal Assessment & Plan Assessment & Plan (1) Hypotonic neurogenic bladder: Code(s): N31.9 - Neuromuscular dysfunction of bladder, unspecified (2) 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 No major barriers to patient understanding were identified. An opportunity to ask questions regarding the treatment plan was provided. All questions were answered. The patient expressed understanding and agreement with the above treatment plan. The patient is aware they should contact our office by phone for worsening of their current condition or the appearance of new urologic symptoms. Compliance is encouraged with any medications and followup testing that is ordered. It is a privilege to participate in the urologic care of your patient. If you have any questions or concerns regarding treatment for the above conditions, or other urologic issues, please do not hesitate to contact me. The office telephone contact is [phone]. This note is constructed using voice recognition software. While every effort has been made to ensure accuracy fur mixer operator errors may have been included. 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
== END 2023-05-23 15:00 | disposition home or self-care (01) ==
LOC: HO.HUSV 09:00
PROVIDERS: PCP Internal Medicine Medical Oncology; Visit Provider Urology
DX: N31.9 Neuromuscular dysfunction of bladder, unspecified (principal); E11.43 Type 2 diabetes mellitus with diabetic autonomic (poly)neuropathy
CPT/HCPCS: 99309

== ENCOUNTER 2023-06-22 11:27 | Outpatient (REF) | payer MEDICARE, SELFPAY ==
[2023-06-22 11:35] LABS: MANUAL DIFF FLAG NO
[2023-06-22 11:47] LABS: Basophils Percent Auto 0.5 % (0-2); Eosinophils Absolute Auto 0.3 X10*3/uL (0.0-0.4); Eosinophils Percent Auto 4.9 % (0-4); Hemoglobin 9.9 g/dl (14.0-18.0); Imm Gran Abs Auto 0.02 X10*3/uL (0.00-0.03); Imm Gran Pct Auto 0.3 % (0.0-0.4); Lymphocytes Absolute Auto 0.8 X10*3/uL (1.2-4.9); Lymphocytes Percent Auto 12.9 % (20-40); Mean Corpuscular HGB Conc 30.9 g/dl (31.0-36.0); Mean Corpuscular Hemoglobin 30.6 pg (27.0-33.0); Mean Corpuscular Volume 98.8 fL (80.0-98.0); Mean Platelet Volume 9.7 fL (9.4-12.4); Monocytes Absolute Auto 0.6 X10*3/uL (0.1-1.2); Monocytes Percent Auto 10.1 % (2-11); Neutrophils Absolute Auto 4.3 x10*3/uL (2.0-8.3); Neutrophils Percent Auto 71.3 % (45-73); Platelet Count 233 X10*3/uL (160-400); Red Blood Count 3.24 X10*6/uL (4.60-5.80); Red Cell Distribution Width 15.4 % (11.0-16.0)
[2023-06-22 11:57] LABS: Alanine Aminotransferase 7 U/L (0-40); Albumin Level 3.3 g/dL (3.5-5.0); Alkaline Phosphatase 64 U/L (39-117); Anion Gap 12 (12-20); Aspartate Amino Transferase 15 U/L (5-37); Bilirubin Total 0.4 mg/dL (0.0-1.0); Blood Urea Nitrogen 20 mg/dL (9-16); Calcium 8.8 mg/dL (8.4-10.2); Carbon Dioxide 27 mmol/L (22-29); Chloride 104 mmol/L (96-108); Estimated Glomerular Filt Rate 49; Glucose Random 128 mg/dL (60-115); Potassium 3.9 mmol/L (3.3-5.1); Sodium 139 mmol/L (135-145); Total Protein 7.1 g/dL (6.5-8.0)
[2023-06-22 12:02] LABS: D Dimer High Sensitivity 436 NG/ML
== END 2023-06-22 11:28 | disposition home or self-care (01) ==
LOC: HO.HSH3E 11:27
PROVIDERS: Visit Provider Internal Medicine Medical Oncology
DX: Z13.89 Encounter for screening for other disorder (principal)
CPT/HCPCS: 36415; 80053; 85025; 85379

== ENCOUNTER 2023-06-22 13:25 | Emergency (ER) | payer OTHER, SELFPAY ==
--- NOTE | 2023-06-22 | ECG_ITS ---
Test Reason : SOB Blood Pressure : / mmHG Vent. Rate : 082 BPM Atrial Rate : 082 BPM P-R Int : 336 ms QRS Dur : 154 ms QT Int : 436 ms P-R-T Axes : 000 -14 039 degrees QTc Int : 509 ms Sinus rhythm with 1st degree A-V block Left bundle branch block Abnormal ECG When compared with ECG of 20-DEC-2021 14:14, No significant change was found Referred By: Generic ED Physician Electronically Signed By:KELBY GARRETT
--- NOTE | ~2023-06-22 | XR_ITS ---
EXAMINATION: XR CHEST CLINICAL INFORMATION: Shortness of breath COMPARISON: 12/20/2021 TECHNIQUE: Frontal view of the chest was obtained. FINDINGS: No convincing evidence for an acute process. Some increased markings are seen here but I believe they're also seen previously. No obvious failure or acute infiltrate. No effusion. The cardiac silhouette is comparable. XR/XR chest 1V IMPRESSION: No convincing evidence for an acute process
--- NOTE | ~2023-06-22 | US_ITS ---
EXAMINATION: US VENOUS ULTRASOUND WITH DOPPLER LOWER EXTREMITY, RIGHT CLINICAL INFORMATION: Question DVT, right and not to touch COMPARISON: None available. TECHNIQUE: Ultrasound of the deep veins is performed from the hip to the calf with compression sonography and color and pulse Doppler assessment. Spectral analysis with color-flow imaging is performed. FINDINGS: There is normal venous compression and respiratory variation and augmented flow. The visualized common femoral vein, superficial femoral vein, profunda femoral vein, popliteal vein shows no evidence of deep venous thrombosis. There is no significant popliteal fossa cyst. Contralateral common femoral vein is patent. If the patient's symptoms persist, followup ultrasound in 5 days 7 days might be of value to exclude proximal propagation from a non-visualized calf vein. US/US venous duplex LE RT IMPRESSION: No DVT demonstrated in the right lower extremity.
[2023-06-22 13:47] VITALS: BP 111/45; PULSE 80; RESP 20; TEMP 36.6; O2SAT 98; BMI 35.3
[2023-06-22 14:09] LABS: MANUAL DIFF FLAG NO
[2023-06-22 14:12] LABS: Basophils Percent Auto 0.5 % (0-2); Eosinophils Absolute Auto 0.3 X10*3/uL (0.0-0.4); Eosinophils Percent Auto 5.1 % (0-4); Hematocrit 31.8 % (42.0-52.0); Hemoglobin 9.9 g/dl (14.0-18.0); Imm Gran Abs Auto 0.02 X10*3/uL (0.00-0.03); Imm Gran Pct Auto 0.3 % (0.0-0.4); Lymphocytes Absolute Auto 0.8 X10*3/uL (1.2-4.9); Lymphocytes Percent Auto 13.1 % (20-40); Mean Corpuscular HGB Conc 31.1 g/dl (31.0-36.0); Mean Corpuscular Hemoglobin 30.7 pg (27.0-33.0); Mean Corpuscular Volume 98.8 fL (80.0-98.0); Mean Platelet Volume 9.5 fL (9.4-12.4); Monocytes Absolute Auto 0.7 X10*3/uL (0.1-1.2); Monocytes Percent Auto 11.2 % (2-11); Neutrophils Absolute Auto 4.3 x10*3/uL (2.0-8.3); Neutrophils Percent Auto 69.8 % (45-73); Platelet Count 235 X10*3/uL (160-400); Red Blood Count 3.22 X10*6/uL (4.60-5.80); Red Cell Distribution Width 15.4 % (11.0-16.0); White Blood Count 6.1 X10*3/uL (4.8-10.8)
[2023-06-22 14:22] LABS: INTERNATIONAL NORM RATIO 1.2 (0.9-1.1)
[2023-06-22 14:29] LABS: Alanine Aminotransferase 9 U/L (0-40); Albumin Level 3.4 g/dL (3.5-5.0); Alkaline Phosphatase 68 U/L (39-117); Anion Gap 15 (12-20); Aspartate Amino Transferase 16 U/L (5-37); Bilirubin Total 0.3 mg/dL (0.0-1.0); Blood Urea Nitrogen 23 mg/dL (9-16); Carbon Dioxide 22 mmol/L (22-29); Chloride 105 mmol/L (96-108); Creatinine Clr Calc Pharmacy 50.8; Estimated Glomerular Filt Rate 45; Glucose Random 130 mg/dL (60-115); Potassium 4.2 mmol/L (3.3-5.1); Sodium 138 mmol/L (135-145); Total Protein 7.3 g/dL (6.5-8.0)
[2023-06-22 14:34] LABS: B Type Natriuretic Peptide 30 pg/mL (<100)
[2023-06-22 14:35] LABS: Troponin-I High Sensitivity < 2.7 ng/L (<3.5-35.0)
[2023-06-22 14:43] LABS: IDNOW Serial# 08D9AD1C; Influenza A Negative (Negative); Influenza B2 Negative (Negative)
[2023-06-22 14:44] LABS: COVID-19 Test Negative (Negative); IDNOW Serial# BCCEAD1C
[2023-06-22 15:31] LABS: D Dimer High Sensitivity 475 NG/ML
[2023-06-22 15:43] VITALS: BP 123/70; PULSE 84; RESP 20; O2SAT 90
[2023-06-22] MEDS: oxyCODONE HCl Immed Release 5 MG TABLET 10 MG PO ×2 (16:07→17:33)
--- NOTE | 2023-06-22 16:13 | PC.NURSE ---
Pt A/OX3, c/o 07/10 back pain, updated with N.O. 10mg oxycodone, pt medicated and reeval for pain. Pt O2 89-90% on 2L, O2 increased to 2.5L NC O2 92-93%, updated. Awaiting result of RLE US.
--- NOTE | 2023-06-22 17:02 | ED_ITS ---
HPI - General Adult General Chief complaint: General Medical Stated complaint: RIGHT LEG RED WARM TO TOUCH Time Seen by Provider: 06/22/23 15:48 Source: EMS Mode of arrival: EMS History of Present Illness HPI narrative: Patient brought in for leg swelling and shortness of breath. Concern is that the patient has a dvt as he has had questionable compliance with his apixaban. patient complaining of mostly back pain going down his leg Onset (ago): day(s) Related Data Home Medications Medication Instructions Recorded Confirmed acetaminophen 325 mg tablet 650 mg PO Q4H PRN Pain 12/17/20 12/20/21 bisacodyl 10 mg rectal suppository 10 mg OH DAILY PRN Constipation 12/17/20 12/20/21 cyanocobalamin (vitamin B-12) 1,000 mcg PO DAILY 12/17/20 12/20/21 1,000 mcg tablet escitalopram oxalate 10 mg tablet 10 mg PO DAILY 12/17/20 12/20/21 fluticasone propionate 50 1 spray intranasal DAILY 12/17/20 12/20/21 mcg/actuation nasal spray,suspension loperamide 2 mg tablet 2 mg PO Q3H PRN Diarrhea 12/17/20 12/20/21 magnesium hydroxide 400 mg/5 mL 30 ml PO BEDTIME PRN Constipation 12/17/20 12/20/21 oral suspension (Milk of Magnesia) multivitamin 1 tab PO DAILY 12/17/20 12/20/21 oxycodone 5 mg tablet 10 mg PO BID 12/17/20 12/20/21 oxycodone 5 mg tablet 10 mg PO Q6H PRN Pain 12/17/20 12/20/21 sodium phosphates 19 gram-7 118 ml OH DAILY PRN Constipation 12/17/20 12/20/21 gram/118 mL enema (Fleet Enema) apixaban 2.5 mg tablet 2.5 mg PO BID 08/17/21 12/20/21 benzocaine 15 mg-menthol 3.6 mg 1 humera mucous membrane Q2H PRN Sore 12/20/21 12/20/21 lozenges Throat diphenhydramine HCl 25 mg tablet 25 mg PO Q6H PRN PURITIS 12/20/21 12/20/21 Previous Rx's Medication Instructions Recorded ascorbic acid (vitamin C) 1,000 mg 1 g PO DAILY 90 days #90 tabs 09/22/21 tablet methenamine hippurate 1 gram tablet 1 g PO DAILY 90 days #90 tabs 09/22/21 amoxicillin 875 mg-potassium 1 tab PO BID #20 tabs 12/23/21 clavulanate 125 mg tablet Allergies Allergy/AdvReac Type Severity Reaction Status Date / Time codeine AdvReac Intermediate Vomiting Verified 05/23/23 09:17 morphine AdvReac Intermediate Vomiting Verified 05/23/23 09:17 Review of Systems 2 Review of Systems: Yes all other systems are reviewed and are negative Neurologic: Denies Sensory deficit (Neuro) [facility] Past Medical History Medical History PONV (postoperative nausea and vomiting) Cardiomyopathy COVID-19 vaccine series completed Depression Venous insufficiency Dysphagia senior care resident Carbuncle of gluteal region C. difficile colitis Left bundle branch block Spinal stenosis Urine retention Osteoarthritis Benign prostate hyperplasia Hypertension CKD (chronic kidney disease) stage 3, GFR 30-59 ml/min CHF (congestive heart failure) Type 2 diabetes mellitus Atrial fibrillation Surgical History History of incision and drainage History of ligation of vein H/O spinal fusion Family History Family History Other No family history of cardiovascular disease Social History Social History Household Members: None Housing: Residential Housing Other:: [facility] Home resident Are you a primary skin care instructor to a significant other at home: No Do you presently have visiting nurse or other home services: Yes (SNF) Unable to assess alcohol history related to: Unknown Alcohol intake: never Patient Tobacco Use Status: Tobacco use Unknown Advance Directives: Yes Advance Directives on File: Yes Advance Directives Date on File: 12/17/20 service: Yes Current occupational status: retired Physical Exam ED Vital Signs: Vital Signs - 24 hr 06/22/23 13:47 06/22/23 15:43 Temperature 97.8 F Pulse Rate 80 84 Respiratory Rate 20 20 Blood Pressure 111/45 L 123/70 Pulse Oximetry 98 90 L Oxygen Delivery Method Nasal Cannula Nasal Cannula BMI result Body Mass Index 35.3 Const Other: elderly male anxious complaining of mostly right sided lumbar pain going to his leg, patient looks unkept Nutritional Appearance: obese Orientation/consciousness: oriented to person and patient oriented x3 Limitations: no limitations HENMT Head: Yes normal to inspection Ears: external ears normal General nose exam: Normal external nose present Mouth: Normal oral and palatal mucosa present and oropharynx normal Throat: Yes posterior oropharynx normal Eyes General: appearance normal, both eyes and all related structures Neck Neck: Yes normal visual inspection Chest Chest palpation & inspection: normal inspection of the chest Resp Auscultation: clear to auscultation bilaterally Cardio Jugular venous distension: no JVD Rate: regular rate Rhythm: regular rhythm Heart sounds: S1 normal heart sound present and S2 normal heart sound present GI Inspection: Yes normal to inspection Palpation (GI): Soft to palpation, nontender and No hepatosplenomegaly present Auscultation: normal bowel sounds Back/Spine/Pelvis Other: right lower lumbar pain Skin General skin exam: no rashes or lesions noted Neuro General: oriented to person and patient oriented x3 Cranial nerves: Yes CN's II-XII intact bilaterally Motor exam (neuro): 5/5 motor strength present throughout Sensory Exam: No Sensory deficit (Neuro) Extrem General: Yes normal to inspection Psych Appearance: grossly normal Course Reevaluation(s) Reevaluation #1: Ultrasound negative for DVT will dc home with lumbar pain and radiculopathy Time: 17:21 Medications Administered Discontinued Medications Generic Name Dose Route Start Last Admin Trade Name Freq PRN Reason Stop Dose Admin Oxycodone HCl 10 mg 06/22/23 16:03 06/22/23 16:07 Oxycodone Hcl Immed Release 5 Mg Tablet PO 06/22/23 16:04 10 mg ONCE ONE Administration Medical Decision Making Differential Diagnosis Differential Diagnoses: The differential diagnosis associated with the presentation includes (DVT, PE, lumbar pain, pneumonia all included) Admission/Observation Consideration of admission/observation: Escalation of care including admission/observation considered (upon arrival patient considered for admission) Lab Data MDM Lab Attestation statement: I reviewed the patient's lab results. (chronic renal insufficiency) 06/22/23 14:03 06/22/23 14:03 Labs: Lab Results 06/22/23 06/22/23 Range/Units 14:03 14:10 WBC 6.1 (4.8-10.8) X10*3/uL RBC 3.22 L (4.60-5.80) X10*6/uL Hgb 9.9 L (14.0-18.0) g/dl Hct 31.8 L (42.0-52.0) % MCV 98.8 H (80.0-98.0) fL MCH 30.7 (27.0-33.0) pg MCHC 31.1 (31.0-36.0) g/dl RDW 15.4 (11.0-16.0) % Plt Count 235 (160-400) X10*3/uL MPV 9.5 (9.4-12.4) fL Immature Gran % (Auto) 0.3 (0.0-0.4) % Neut % (Auto) 69.8 (45-73) % Lymph % (Auto) 13.1 L (20-40) % [place] % (Auto) 11.2 H (2-11) % Eos % (Auto) 5.1 H (0-4) % Baso % (Auto) 0.5 (0-2) % Lymph # (Auto) 0.8 L (1.2-4.9) X10*3/uL [place] # (Auto) 0.7 (0.1-1.2) X10*3/uL Eos # (Auto) 0.3 (0.0-0.4) X10*3/uL Baso # (Auto) 0.0 (0.0-0.2) X10*3/uL Abs Immat Gran (auto) 0.02 (0.00-0.03) X10*3/uL Absolute Neuts (auto) 4.3 (2.0-8.3) x10*3/uL Absolute Nucleated RBC 0.000 (0.0-0.012) X10*3/uL Nucleated RBC % (auto) 0.0 (0.0-0.2) /100WBC PT 15.0 H (11.1-13.3) SEC INR 1.2 H (0.9-1.1) D-Dimer High Sensitivty 475 NG/ML Sodium 138 (135-145) mmol/L Potassium 4.2 (3.3-5.1) mmol/L Chloride 105 (96-108) mmol/L Carbon Dioxide 22 (22-29) mmol/L Anion Gap 15 (12-20) BUN 23 H (9-16) mg/dL Creatinine 1.49 H (0.5-1.4) mg/dL Estim Creat Clear Calc 50.8 Estimated GFR 45 Random Glucose 130 H (60-115) mg/dL Calcium 9.0 (8.4-10.2) mg/dL Total Bilirubin 0.3 (0.0-1.0) mg/dL AST 16 (5-37) U/L ALT 9 (0-40) U/L Alkaline Phosphatase 68 (39-117) U/L Troponin I High Sens < 2.7 (<3.5-35.0) ng/L B-Natriuretic Peptide 30 (<100) pg/mL Total Protein 7.3 (6.5-8.0) g/dL Albumin 3.4 L (3.5-5.0) g/dL COVID-19 (RU) Negative (Negative) COVID-19 Clin Com See Note Influenza Type A (BRANDON) Negative (Negative) Influenza Type B (BRANDON) Negative (Negative) Influenza A & B Note See Note Radiology Impression Discussion of test interpretation with radiology: I have reviewed the radiologist's reading. (US no dvt) Independent Historian Clinical information obtained from an independent historian. History obtained from or confirmed by: EMS Tests considered The following testing was considered but not selected: CT of chest considered but patient with no DVT and is on apixaban Chronic Conditions Patient?s care impacted by: Hypertension Discharge Plan Discharge Clinical Impression: Acute lumbar back pain, Acute radicular low back pain Patient Disposition: Home, Self-Care Instructions: Acute Low Back Pain (ED) Prescriptions: No Action multivitamin Tablet 1 tab PO DAILY cyanocobalamin (vitamin B-12) 1,000 mcg Tablet 1,000 mcg PO DAILY fluticasone propionate 50 mcg/actuation [place],Suspension 1 spray INTRANASAL DAILY oxycodone 5 mg Tablet 10 mg PO BID oxycodone 5 mg Tablet 10 mg PO Q6H PRN (Reason: Pain) escitalopram oxalate 10 mg Tablet 10 mg PO DAILY acetaminophen 325 mg Tablet 650 mg PO Q4H PRN (Reason: Pain) loperamide 2 mg Tablet 2 mg PO Q3H PRN (Reason: Diarrhea) magnesium hydroxide [Milk of Magnesia] 400 mg/5 mL Suspension 30 ml PO BEDTIME PRN (Reason: Constipation) bisacodyl 10 mg Suppository 10 mg OH DAILY PRN (Reason: Constipation) Rx Instructions: IF NO BOWEL MOVEMENT IN THREE DAYS OR 9 SHIFTS Fleet Enema 19-7 gram/118 mL Enema 118 ml OH DAILY PRN (Reason: Constipation) apixaban 2.5 mg Tablet 2.5 mg PO BID diphenhydramine HCl 25 mg Tablet 25 mg PO Q6H PRN (Reason: PURITIS) benzocaine-menthol 15-3.6 mg Lozenge 1 humera MUCOUS MEMBRANE Q2H PRN (Reason: Sore Throat) amoxicillin-pot clavulanate 875-125 mg tablet 1 tab PO BID Qty: 20 0RF ascorbic acid (vitamin C) 1,000 mg tablet 1 g PO DAILY 90 Days Qty: 90 1RF methenamine hippurate 1 gram tablet 1 g PO DAILY 90 Days Qty: 90 1RF Referrals: Shon Brown MD [Primary Care Provider] - 5 days
[2023-06-22 17:46] VITALS: BP 122/72; PULSE 97; RESP 18; O2SAT 89
[2023-06-22 17:56] VITALS: O2SAT 80
--- NOTE | 2023-06-22 18:00 | PC.NURSE ---
PER [facility], PT DOES NOT USE SUPP O2 AT BASELINE, NO HX ASTHMA, COPD ON FILE. PT CURRENTLY DROPPING TO 80% ON RA.
[2023-06-22] MEDS: Albuterol Sulfate 90 MCG 8 GM INHALER 2 PUFF INHALE ×2 (18:38→18:42)
[2023-06-22 18:43] VITALS: PULSE 88; RESP 22; O2SAT 96
--- NOTE | 2023-06-22 22:17 | PC.NURSE ---
This RN spoke with [facility] and gave nurse to nurse report.
== END 2023-06-22 19:00 | disposition home or self-care (01) ==
PROVIDERS: Emergency Provider Emergency Medicine; PCP Internal Medicine Medical Oncology
DX: M54.50 Low back pain, unspecified (principal); R60.0 Localized edema; R06.02 Shortness of breath; I44.0 Atrioventricular block, first degree; Z20.822 Contact with and (suspected) exposure to COVID-19; Z20.828 Contact with and (suspected) exposure to other viral communicable diseases; Z79.899 Other long term (current) drug therapy
CPT/HCPCS: 36415; 71045; 80053; 83880; 84484; 85025; 85379; 85610; 87502; 87635; 93005; 93971; 94640; 99284; 99285

== ENCOUNTER 2023-07-04 09:35 | Outpatient (AMB) | payer MEDICARE, SELFPAY ==
--- NOTE | 2023-07-02 09:56 | HO.VETSHOME ---
Intake Intake Visit Reasons: Retention- follow up Intake Note: [facility] Patient is present for Retention follow up Urology Med: Methenamine, Antibiotic Allergy: None Blood Thinner: Apixaban Allergies codeine Adverse Reaction (Intermediate, Verified 07/02/23 09:57) Vomiting morphine Adverse Reaction (Intermediate, Verified 07/02/23 09:57) Vomiting HPI HPI Comments History of Present Illness Details Clarence is a pleasant male.? [facility] He seen for the following urologic conditions - neurogenic bladder - scrotal abscess Review neurogenic bladder management Minimal issues at suprapubic exchange Continue on vitamin-C 1000 mg methenamine daily to minimize colonization May extend interval between catheter exchange from 4 weeks to 6 weeks. Rate limiting factor will be incrustation on catheter Occasional proud flesh at suprapubic tube side. Recommend iodine ointment. Difficulty with capped SPT Recommend 2-3 hr cycling rather than 4 hrs Diabetic cystopathy Neurogenic bladder Suprapubic tube placed by Dr. Bradshaw 2020 Minimal issues since placement Scrotal abscess currently resolved Had been seen in hospital with scrotal abscess This was drained and has been healing by secondary intention with packing - November 2020 Still with persistently draining sinus Recommendation for examination under anesthesia during time of suprapubic change? PFSH Medical History PONV (postoperative nausea and vomiting) Cardiomyopathy COVID-19 vaccine series completed Depression Venous insufficiency Dysphagia [facility] resident Carbuncle of gluteal region C. difficile colitis Left bundle branch block Spinal stenosis Urine retention Osteoarthritis Benign prostate hyperplasia Hypertension CKD (chronic kidney disease) stage 3, GFR 30-59 ml/min CHF (congestive heart failure) Type 2 diabetes mellitus Atrial fibrillation Surgical History History of incision and drainage History of ligation of vein H/O spinal fusion Family History Other No family history of cardiovascular disease Social History Household Members: None Housing: [facility] Are you a primary healthcare corporate account director to a significant other at home: No Do you presently have visiting nurse or other home services: Yes (SNF) Unable to assess alcohol history related to: Unknown Alcohol intake: never Patient Tobacco Use Status: Tobacco use Unknown Advance Directives Date on File: 12/17/20 service: Yes Current occupational status: retired Review of Systems Const Denies chills and Denies fever(s) Card Reports no additional complaints and Denies syncope Resp Denies cough GI Denies abdominal pain and Denies heartburn Reports as per HPI and Denies change in libido Neuro Denies syncope Psych Denies change in libido Endo Denies change in libido Physical Exam Const General: cooperative, healthy appearing, comfortable and no acute distress Orientation/consciousness: patient oriented x3 HEENT Face and sinus: Yes normal facial exam Mouth: moist mucous membranes Neck Neck: Yes normal visual inspection, Yes full ROM and Yes trachea midline Chest Chest palpation & inspection: normal inspection of the chest Resp Effort & Inspection: normal respiratory effort, able to speak in complete sentences and no respiratory distress GI Inspection: Yes normal to inspection Back/Spine/Pelvis Cervical Spine: normal cervical lordosis Thoracic/Lumbar Spine: thoracic and lumbar spine normal to inspection Skin General skin exam: no rashes or lesions noted Neuro General: patient oriented x3, gait normal, tone normal and moves all extremities Extrem General: Yes normal to inspection and Yes capillary refill normal Assessment & Plan Assessment & Plan (1) Diabetic neuropathy associated with diabetes mellitus due to underlying condition: Code(s): E08.40 - Diabetes mellitus due to underlying condition with diabetic neuropathy, unspecified Plan SPT - change every 6 weeks if no debris - may extend to 12 weeks in 2 week increments if no debris Cycle bladder every 2-3 hrs. Use bladder clip if easier for nursing Patient Instructions: Imaging studies, laboratory and physical exam results were discussed and reviewed in detail. No major barriers to patient understanding were identified. An opportunity to ask questions regarding the treatment plan was provided. All questions were answered. The patient expressed understanding and agreement with the above treatment plan. The patient is aware they should contact our office by phone for worsening of their current condition or the appearance of new urologic symptoms. Compliance is encouraged with any medications and followup testing that is ordered. It is a privilege to participate in the urologic care of your patient. If you have any questions or concerns regarding treatment for the above conditions, or other urologic issues, please do not hesitate to contact me. The office telephone contact is [phone]. This note is constructed using voice recognition software. While every effort has been made to ensure accuracy respite coordinator errors may have been included. Yours sincerely, Dr Mateus Bradshaw MD, [facility] - Urology Providers of Expert, Compassionate Care for the Genitourinary System Coding Level of Care Code 98884-[id number] Fac sub, low Diagnoses Diabetic neuropathy associated with diabetes mellitus due to underlying condition E08.40
== END 2023-07-04 16:31 | disposition home or self-care (01) ==
LOC: HO.HUSV 09:36
PROVIDERS: PCP Internal Medicine Medical Oncology; Visit Provider Urology
DX: E11.21 Type 2 diabetes mellitus with diabetic nephropathy (principal)
CPT/HCPCS: 99308

== ENCOUNTER 2023-08-01 13:53 | Outpatient (AMB) | payer MEDICARE, SELFPAY ==
--- NOTE | 2023-08-01 13:54 | A.OFFVIS_ITS ---
Intake Intake Visit Reasons: follow up Intake Note: [facility] Patient is present for Retention follow up Urology Med: Methenamine, Antibiotic Allergy: None Blood Thinner: Apixaban Supervisor Net Making Required: No Accompanied by: Self / Same As Patient Allergies codeine Adverse Reaction (Intermediate, Verified 08/01/23 13:54) Vomiting morphine Adverse Reaction (Intermediate, Verified 08/01/23 13:54) Vomiting HPI HPI Comments History of Present Illness Details Clarence is an 83 year old male.? Resident of the [facility].? He has a SP tube in place for neurogenic bladder The patient c/o's bladder pressure. Recommend Myrbetriq 50 mg daily and contine drain/unclamp tube q 2-4 hrs Continue on vitamin-C 1000 mg methenamine daily to minimize colonization May extend interval between catheter exchange from 4 weeks to 6 weeks. Rate limiting factor will be incrustation on catheter Occasional proud flesh at suprapubic tube side. Recommend iodine ointment. Diabetic cystopathy Neurogenic bladder Suprapubic tube placed by Dr. Bradshaw 2020? [facility] Medical History PONV (postoperative nausea and vomiting) Cardiomyopathy COVID-19 vaccine series completed Depression Venous insufficiency Dysphagia shelter resident Carbuncle of gluteal region C. difficile colitis Left bundle branch block Spinal stenosis Urine retention Osteoarthritis Benign prostate hyperplasia Hypertension CKD (chronic kidney disease) stage 3, GFR 30-59 ml/min CHF (congestive heart failure) Type 2 diabetes mellitus Atrial fibrillation Surgical History History of incision and drainage History of ligation of vein H/O spinal fusion Family History Other No family history of cardiovascular disease Social History Household Members: None Housing: Group Home Housing Other:: [place] [facility] resident Are you a primary health care consultant to a significant other at home: No Do you presently have visiting nurse or other home services: Yes (SNF) Unable to assess alcohol history related to: Unknown Alcohol intake: never Patient Tobacco Use Status: Tobacco use Unknown Advance Directives Date on File: 12/17/20 service: Yes Current occupational status: retired Review of Systems Const All systems reviewed & are unremarkable except as noted in HPI and below Reports no additional complaints Eyes Reports no additional complaints ENT Reports no additional complaints Card Denies dyspnea Resp Denies cough and Denies dyspnea GI Reports no additional complaints Musc Reports no additional complaints Skin/Breast Denies rash and Denies unusual bruising Neuro Reports no additional complaints Psych Reports no additional complaints Endo Reports no additional complaints Uriel/Lymph Reports no additional complaints Aller/Immun Reports no additional complaints Assessment & Plan Assessment & Plan (1) Diabetic neuropathy associated with diabetes mellitus due to underlying condition: Code(s): E08.40 - Diabetes mellitus due to underlying condition with diabetic neuropathy, unspecified (2) Spastic neurogenic bladder: Code(s): N31.8 - Other neuromuscular dysfunction of bladder (3) Sensation of pressure in bladder area: Code(s): R39.89 - Other symptoms and signs involving the genitourinary system Plan Recommend Myrbetriq 50 mg daily and contine drain/unclamp tube q 2-4 hrs Continue on vitamin-C 1000 mg methenamine daily to minimize colonization May extend interval between catheter exchange from 4 weeks to 6 weeks. Rate limiting factor will be incrustation on catheter Coding Level of Care Code 59225-Itrv Fac sub, mod Diagnoses Diabetic neuropathy associated with diabetes mellitus due to underlying condition E08.40 Spastic neurogenic bladder N31.8 Sensation of pressure in bladder area R39.89
== END 2023-08-01 16:30 | disposition home or self-care (01) ==
LOC: HO.HUSV 13:53
PROVIDERS: PCP Internal Medicine Medical Oncology; Visit Provider Urology
DX: N31.8 Other neuromuscular dysfunction of bladder (principal); E11.40 Type 2 diabetes mellitus with diabetic neuropathy, unspecified; R39.89 Other symptoms and signs involving the genitourinary system
CPT/HCPCS: 99309

== ENCOUNTER 2023-08-16 14:38 | Outpatient (REF) | payer MEDICARE, SELFPAY | END 2023-08-16 14:39 | disposition home or self-care (01) | LOC: HO.HSH3E 14:38 | PROVIDERS: Visit Provider Internal Medicine Medical Oncology | DX: N39.0 Urinary tract infection, site not specified (principal) | CPT/HCPCS: 87070; 87077; 87147; 87186; 87205 ==

== ENCOUNTER 2023-08-28 12:24 | Outpatient (REF) | payer MEDICARE, SELFPAY ==
[2023-08-28 12:31] LABS: MANUAL DIFF FLAG NO
[2023-08-28 12:35] LABS: Basophils Percent Auto 0.7 % (0-2); Eosinophils Absolute Auto 0.2 X10*3/uL (0.0-0.4); Eosinophils Percent Auto 2.8 % (0-4); Hematocrit 32.7 % (42.0-52.0); Imm Gran Abs Auto 0.02 X10*3/uL (0.00-0.03); Imm Gran Pct Auto 0.3 % (0.0-0.4); Lymphocytes Percent Auto 16.6 % (20-40); Mean Corpuscular HGB Conc 30.6 g/dl (31.0-36.0); Mean Corpuscular Hemoglobin 29.8 pg (27.0-33.0); Mean Corpuscular Volume 97.3 fL (80.0-98.0); Mean Platelet Volume 9.4 fL (9.4-12.4); Monocytes Absolute Auto 0.5 X10*3/uL (0.1-1.2); Neutrophils Absolute Auto 4.4 x10*3/uL (2.0-8.3); Neutrophils Percent Auto 71.6 % (45-73); Platelet Count 272 X10*3/uL (160-400); Red Blood Count 3.36 X10*6/uL (4.60-5.80); Red Cell Distribution Width 16.1 % (11.0-16.0); White Blood Count 6.1 X10*3/uL (4.8-10.8)
[2023-08-28 12:49] LABS: Alanine Aminotransferase 13 U/L (0-40); Albumin Level 3.2 g/dL (3.5-5.0); Alkaline Phosphatase 61 U/L (39-117); Anion Gap 11 (12-20); Aspartate Amino Transferase 19 U/L (5-37); Bilirubin Total 0.3 mg/dL (0.0-1.0); Blood Urea Nitrogen 22 mg/dL (9-16); Calcium 8.8 mg/dL (8.4-10.2); Carbon Dioxide 29 mmol/L (22-29); Chloride 104 mmol/L (96-108); Estimated Glomerular Filt Rate 55; Glucose Random 109 mg/dL (60-115); Potassium 3.9 mmol/L (3.3-5.1); Sodium 140 mmol/L (135-145); Total Protein 7.2 g/dL (6.5-8.0)
== END 2023-08-28 12:25 | disposition home or self-care (01) ==
LOC: HO.HSH3E 12:24
PROVIDERS: Visit Provider Internal Medicine
DX: N18.9 Chronic kidney disease, unspecified (principal)
CPT/HCPCS: 36415; 80053; 85025

== ENCOUNTER 2023-10-02 15:05 | Outpatient (REF) | payer MEDICARE, SELFPAY | END 2023-10-02 15:06 | disposition home or self-care (01) | LOC: HO.HSH3E 15:05 | PROVIDERS: Visit Provider Internal Medicine | DX: N49.2 Inflammatory disorders of scrotum (principal) | CPT/HCPCS: 87070; 87147; 87205 ==

== ENCOUNTER 2023-10-10 13:26 | Outpatient (AMB) | payer MEDICARE, SELFPAY ==
--- NOTE | 2023-10-10 13:27 | A.OFFVIS_ITS ---
Intake Intake Visit Reasons: F/U swollen scrotum Allergies codeine Adverse Reaction (Intermediate, Verified 08/01/23 13:54) Vomiting morphine Adverse Reaction (Intermediate, Verified 08/01/23 13:54) Vomiting HPI HPI Comments History of Present Illness Details Clarence is an 83 year old male.? [facility] He seen for the following urologic conditions - neurogenic bladder with spasticity - scrotal cellulitis Scrotal cellulitis Good response to 7 days antibiotics. Extend to 14 days. Neurogenic bladder with some spasticity Suprapubic tube in place - placed 2020 Clear draining urine On Myrbetriq for spasm Has catheter drainage during day q.4 hours, uses overnight bag Continue on vitamin-C 1000 mg methenamine daily to minimize colonization May extend interval between catheter exchange from 4 weeks to 6 weeks. Rate limiting factor will be incrustation on catheter Occasional proud flesh at suprapubic tube side. Recommend iodine ointment. Six month follow-up [facility] Medical History PONV (postoperative nausea and vomiting) Cardiomyopathy COVID-19 vaccine series completed Depression Venous insufficiency Dysphagia half-way resident Carbuncle of gluteal region C. difficile colitis Left bundle branch block Spinal stenosis Urine retention Osteoarthritis Benign prostate hyperplasia Hypertension CKD (chronic kidney disease) stage 3, GFR 30-59 ml/min CHF (congestive heart failure) Type 2 diabetes mellitus Atrial fibrillation Surgical History History of incision and drainage History of ligation of vein H/O spinal fusion Family History Other No family history of cardiovascular disease Social History Household Members: None Housing: Residential Housing Other:: [facility] Home resident Are you a primary respiratory care specialist to a significant other at home: No Do you presently have visiting nurse or other home services: Yes (SNF) Unable to assess alcohol history related to: Unknown Alcohol intake: never Comment: resting in bed, eyes closed Patient Tobacco Use Status: Tobacco use Unknown Advance Directives Date on File: 12/17/20 service: Yes Current occupational status: retired Review of Systems Const Denies chills and Denies fever(s) Card Reports no additional complaints and Denies syncope Resp Denies cough GI Denies abdominal pain and Denies heartburn Reports as per HPI and Denies change in libido Neuro Denies syncope Psych Denies change in libido Endo Denies change in libido Physical Exam Const General: cooperative, healthy appearing, comfortable and no acute distress Orientation/consciousness: patient oriented x3 HEENT Face and sinus: Yes normal facial exam Mouth: moist mucous membranes Neck Neck: Yes normal visual inspection, Yes full ROM and Yes trachea midline Chest Chest palpation & inspection: normal inspection of the chest Resp Effort & Inspection: normal respiratory effort, able to speak in complete sentences and no respiratory distress GI Inspection: Yes normal to inspection Back/Spine/Pelvis Cervical Spine: normal cervical lordosis Thoracic/Lumbar Spine: thoracic and lumbar spine normal to inspection Skin General skin exam: no rashes or lesions noted Neuro General: patient oriented x3, gait normal, tone normal and moves all extremities Extrem General: Yes normal to inspection and Yes capillary refill normal Assessment & Plan Assessment & Plan (1) Spastic neurogenic bladder: Code(s): N31.8 - Other neuromuscular dysfunction of bladder (2) Scrotal abscess: Code(s): N49.2 - Inflammatory disorders of scrotum Plan Complete 14 days total antibiotics Six month follow-up Continue to change suprapubic tube every 6 weeks Patient Instructions: Imaging studies, laboratory and physical exam results were discussed and reviewed in detail. No major barriers to patient understanding were identified. An opportunity to ask questions regarding the treatment plan was provided. All questions were answered. The patient expressed understanding and agreement with the above treatment plan. The patient is aware they should contact our office by phone for worsening of their current condition or the appearance of new urologic symptoms. Compliance is encouraged with any medications and followup testing that is ordered. It is a privilege to participate in the urologic care of your patient. If you have any questions or concerns regarding treatment for the above conditions, or other urologic issues, please do not hesitate to contact me. The office telephone contact is [phone]. This note is constructed using voice recognition software. While every effort has been made to ensure accuracy thoracic medicine physician errors may have been included. Yours sincerely, Dr Mateus Bradshaw MD, [facility] - Urology Providers of Expert, Compassionate Care for the Genitourinary System Coding Level of Care Code 84171-[id number] Fac sub, mod Diagnoses Spastic neurogenic bladder N31.8 Scrotal abscess N49.2
== END 2023-10-10 16:00 ==
LOC: HO.HUSV 13:26
PROVIDERS: PCP Internal Medicine Medical Oncology; Visit Provider Urology
DX: N31.8 Other neuromuscular dysfunction of bladder (principal); N49.2 Inflammatory disorders of scrotum
CPT/HCPCS: 99309

== ENCOUNTER 2023-10-17 15:12 | Inpatient (IN) | payer MEDICARE, SELFPAY ==
--- NOTE | ~2023-10-17 | US_ITS ---
EXAMINATION: US SCROTUM CLINICAL INFORMATION: Scrotal abscess question epididymitis. COMPARISON: CT abdomen pelvis 10/17/2023, ultrasound scrotum 12/20/2021 TECHNIQUE: A sonogram of the scrotum was performed assessing martinez-scale appearance and color Doppler flow. Spectral Doppler analysis of the arterial and venous flow were performed in the testes bilaterally. FINDINGS: RIGHT: Right testicle measures 2.9 x 1.9 x 2.8 cm, volume 8.2 mL. No focal testicular parenchymal lesions are visualized. Spectral Doppler analysis of the arterial and venous flow is normal in the right testis. Right epididymal head is normal in size. Moderate-sized hydrocele is present. No varicocele is seen. Right epididymal Doppler flow is normal. LEFT: Left testicle measures 3.6 x 2.3 x 2.5 cm, volume 10.5 mL. No focal testicular parenchymal lesions are visualized. Spectral Doppler analysis of the arterial and venous flow is normal in the left testis. Left epididymal head is normal in size. A small 3 mm cyst is seen in the head of the epididymis. Moderate-sized hydrocele is present. No varicocele is seen. Left epididymal Doppler flow is normal. US/US scrotum IMPRESSION: 1. Bilateral hydroceles. 2. No evidence of epididymitis. 3. No scrotal abscess is seen. 4. Bilateral hydroceles.
--- NOTE | ~2023-10-17 | CT_ITS ---
EXAMINATION: CT ABDOMEN AND PELVIS WITH CONTRAST CLINICAL INFORMATION: Scrotal abscess COMPARISON: Ultrasound scrotum and CT abdomen pelvis 12/20/2021 TECHNIQUE: Multidetector volumetric images were obtained from the superior aspect of the liver through the pubic symphysis following administration 85 mL of Omnipaque 350 intravenous contrast. Sagittal and coronal reformatted images were obtained on the technologist's workstation. Oral contrast: No This CT examination was performed using dose optimization techniques as appropriate, variously including the following: *Automated exposure control *Adjustment of mA and/or kV according to patient size (this includes techniques or standardized protocols for targeted exams where dose is matched to indication/reason for exam; i.e. extremities or head) *Use of iterative reconstruction technique DLP: 1875 mGy-cm FINDINGS: LUNG BASES: Emphysematous changes appear to be present at the lung bases along with subpleural reticulation possibly representing fibrosis. No pleural effusions or consolidations. No worrisome lung masses. Moderately extensive coronary calcium is present. LIVER, GALLBLADDER, AND BILIARY TREE: The liver is normal in size, shape, and attenuation. No focal hepatic lesion or biliary ductal dilatation is present. The gallbladder contains multiple gallstones the largest measuring about 1.7 cm but is otherwise unremarkable with no evidence of pericholecystic inflammatory changes. PANCREAS: Mildly atrophic SPLEEN: Unremarkable. ADRENAL GLANDS: Unremarkable. KIDNEYS AND URETERS: A staghorn calculus is present in the left renal pelvis with stones extending into the lower pole calyces. Hounsfield unit attenuation is higher 600. The stone is 9.9 cm from the posterior axillary line. The right kidney appears normal. The left kidney is mildly atrophic with cortical thinning compared to the right. A benign left lower pole 2.0 cm Bosniak class I renal cyst is noted which requires no additional imaging or follow up. No solid renal masses are seen. BLADDER: A suprapubic cystostomy catheter is present in the bladder which has a thickened wall. No bladder calculi. GASTROINTESTINAL TRACT: A large amount of stool is present in the rectum measuring 9 cm in diameter with some mild perirectal inflammatory change. Similar changes were seen on the 12/20/2021 CT scan. A few scattered colonic diverticula are seen without diverticulitis. The small and large bowel are otherwise unremarkable. The appendix is unremarkable. ABDOMINAL WALL: There are small inguinal hernias seen containing only fat. LYMPH NODES: No retroperitoneal lymphadenopathy. VASCULAR: Calcific atherosclerotic changes are present in the aorta and iliofemoral vessels. There is no evidence of an abdominal aortic aneurysm. PELVIC VISCERA: Prostate and seminal vesicles appear normal. The scrotum is not included on this study but some mild skin thickening is seen proximally. OSSEOUS STRUCTURES: Severe degenerative changes are present throughout the spine. No bony destructive lesions are seen. An exostosis is seen arising from the proximal left femoral metaphysis. A long ovoid corticated calcification is seen anterior to the left hip which conceivably could represent a chronic fracture of this exostosis. CT/CT abdomen pelvis w IV con IMPRESSION: 1. Large amount of stool in the rectum with some mild perirectal inflammatory change suggesting stercoral colitis. Similar changes were seen on the 12/20/2021 CT scan. 2. Cholelithiasis without cholecystitis. 3. Staghorn calculus left kidney with mild atrophy of the left kidney. 4. Suprapubic cystostomy catheter in place with thickened bladder wall. 5. Other incidental findings as described above. 6. The scrotum is not included on this study but some mild skin thickening is seen proximally. Fleischner guidelines were followed.
--- NOTE | ~2023-10-17 | FL_ITS ---
EXAMINATION: XR URETHROCYSTOGRAPHY CLINICAL INFORMATION: Concern for fistula from bladder to scrotum COMPARISON: None available. Correlation made with CT abdomen and pelvis 10/17/2023. TECHNIQUE: Contrast was administered via the patient's superpubic tube. Multiple spot films were then performed FINDINGS: No fistula is seen in the bladder to the scrotum, or elsewhere. There appears to be a benign-appearing stricture of the bulbous urethra terminating at the penile urethra. FLUOROSCOPY TIME: 2 minutes 13 seconds DOSE AREA PRODUCT: 2163 uGy-m2 (microgray-meter squared) FL/FL cystogram IMPRESSION: 1. No evidence of fistula between the bladder and scrotum. 2. 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
[2023-10-17 15:23] VITALS: BP 94/68; PULSE 94; O2SAT 92
[2023-10-17 15:38] VITALS: BP 115/62; PULSE 90; RESP 18; TEMP 36.6; O2SAT 90; BMI 31.2
[2023-10-17 15:42] VITALS: RESP 20
--- NOTE | 2023-10-17 15:43 | PC.NURSE ---
Pt is a&ox3 coming in for scrotum abcess, pt reports having chronic pain all over. supra pubic cath noted. skin pwd. respiraitons even and unlabored. Some arm tremors noted upon arrival. Pt in no apparent distress.
--- NOTE | 2023-10-17 16:22 | ED.GENADULT ---
HPI - General Adult General Chief complaint: General Medical Stated complaint: scrotal abcess Time Seen by Provider: 10/17/23 16:16 Source: patient and RN notes reviewed Mode of arrival: EMS Limitations: no limitations History of Present Illness HPI narrative: Patient 83 years old with history of diabetes hypertension CKD atrial fibrillation on Eliquis nonambulatory with indwelling suprapubic catheter comes here as staff noticed pus coming out from his scrotum. Has swelling and redness of the scrotum with slight pain no abdominal pain no fever Related Data Home Medications Medication Instructions Recorded Confirmed acetaminophen 325 mg tablet 650 mg PO Q4H PRN Pain 12/17/20 10/17/23 bisacodyl 10 mg rectal suppository 10 mg WI DAILY PRN Constipation 12/17/20 10/17/23 cyanocobalamin (vitamin B-12) 1,000 mcg PO DAILY 12/17/20 10/17/23 1,000 mcg tablet escitalopram oxalate 10 mg tablet 10 mg PO DAILY 12/17/20 10/17/23 fluticasone propionate 50 1 spray intranasal DAILY 12/17/20 10/17/23 mcg/actuation nasal spray,suspension loperamide 2 mg tablet 2 mg PO Q3H PRN Diarrhea 12/17/20 10/17/23 magnesium hydroxide 400 mg/5 mL 30 ml PO BEDTIME PRN Constipation 12/17/20 10/17/23 oral suspension (Milk of Magnesia) multivitamin 1 tab PO DAILY 12/17/20 10/17/23 oxycodone 5 mg tablet 10 mg PO BID 12/17/20 10/17/23 oxycodone 5 mg tablet 10 mg PO Q6H PRN Pain 12/17/20 10/17/23 sodium phosphates 19 gram-7 118 ml WI DAILY PRN Constipation 12/17/20 10/17/23 gram/118 mL enema (Fleet Enema) apixaban 2.5 mg tablet 2.5 mg PO BID 08/17/21 10/17/23 diphenhydramine HCl 25 mg tablet 25 mg PO Q6H PRN PURITIS 12/20/21 10/17/23 calcium polycarbophil 625 mg tablet 625 mg PO BID 10/17/23 10/17/23 cephalexin 500 mg tablet 500 mg PO QID 10/17/23 10/17/23 lidocaine 4 % topical patch 1 patch topical DAILY 10/17/23 10/17/23 mirabegron 50 mg tablet,extended 50 mg PO DAILY 10/17/23 10/17/23 release 24 hr ondansetron 4 mg disintegrating 4 mg PO Q6H PRN Nausea 10/17/23 10/17/23 tablet Previous Rx's Medication Instructions Recorded ascorbic acid (vitamin C) 1,000 mg 1 g PO DAILY 90 days #90 tabs 09/22/21 tablet methenamine hippurate 1 gram tablet 1 g PO DAILY 90 days #90 tabs 09/22/21 Allergies Allergy/AdvReac Type Severity Reaction Status Date / Time codeine AdvReac Intermediate Vomiting Verified 08/01/23 13:54 morphine AdvReac Intermediate Vomiting Verified 08/01/23 13:54 Review of Systems Review of Systems: Yes all other systems are reviewed and are negative PMFSH Past Medical History Onset Date is defined in the Problem List Problems that require an onset date and time if occurred within 24 hrs of arrival to the ED Aortic Dissection and Rupture; Neurologic impairment; Cardiopulmonary Arrest; Endotracheal Intubation; Insertion or Replacement of Mechanical Circulatory Assist Device Medical History (Updated 10/17/23 @ 23:36 by Alhaji Isaac MD) Cellulitis of scrotum PONV (postoperative nausea and vomiting) Cardiomyopathy COVID-19 vaccine series completed Depression Venous insufficiency Dysphagia [facility] resident Carbuncle of gluteal region C. difficile colitis Left bundle branch block Spinal stenosis Urine retention Osteoarthritis Benign prostate hyperplasia Hypertension CKD (chronic kidney disease) stage 3, GFR 30-59 ml/min CHF (congestive heart failure) Type 2 diabetes mellitus Atrial fibrillation Surgical History History of incision and drainage History of ligation of vein H/O spinal fusion Family History Family History Other No family history of cardiovascular disease Social History Social History Household Members: None Housing: Halfway Housing Other:: [place] [facility] resident Are you a primary managed care provider to a significant other at home: No Do you presently have visiting nurse or other home services: Yes (SNF) Unable to assess alcohol history related to: Unknown Alcohol intake: never Comment: resting in bed, eyes closed Patient Tobacco Use Status: Tobacco use Unknown Smoked in Last 30 Days: No Use of substances other than those prescribed or required for medical reasons: No Advance Directives: Yes Advance Directives on File: Yes Advance Directives Date on File: 10/17/23 service: Yes Current occupational status: retired Physical Exam ED Vital Signs: Vital Signs - 24 hr 10/17/23 15:38 10/17/23 15:42 10/17/23 18:33 Temperature 97.9 F 98.2 F Pulse Rate 90 84 Respiratory Rate 18 20 18 Blood Pressure 115/62 129/73 Pulse Oximetry 90 L 92 Oxygen Delivery Method Room Air Room Air 10/17/23 21:12 Temperature 98.2 F Pulse Rate 89 Respiratory Rate 17 Blood Pressure 111/60 Pulse Oximetry 95 Oxygen Delivery Method Room Air BMI result Body Mass Index 31.2 Appearance: Alert. Oriented X3. No acute distress. Eyes: No pallor or icterus ENT: Pharynx normal. Oral Mucosa moist Neck: Normal inspection. Neck supple. CVS: Normal heart rate and rhythm. Pulses normal. Respiratory: No respiratory distress. Equal air entry bilateral, Abdomen: Soft and nontender. Bowel sounds are present, no mass palpable, no CVA tenderness indwelling suprapubic catheter+ : Some cellulitic scrotal wall with small puncture wound with serosanguineous pus discharge+ Skin: Skin warm and dry. Normal skin color. Normal skin turgor. Extremities: No lower extremity edema. No calf tenderness Neuro: Oriented X 3. Deconditioning with lower extremity weakness+ Medications Administered Discontinued Medications Generic Name Dose Route Start Last Admin Trade Name Freq PRN Reason Stop Dose Admin Vancomycin HCl 2,000 mg in 520 mls @ 250 mls/hr 10/17/23 16:40 10/17/23 20:30 Vancomycin/Ns IV 10/17/23 18:44 Infused ONCE ONE Infusion Piperacillin Sod/Tazobactam 50 mls @ 100 mls/hr 10/17/23 16:40 10/17/23 18:06 Sod 3.375 gm/ Sodium Chloride IV 10/17/23 17:09 Infused ONCE ONE Infusion Sodium Chloride 1,000 mls @ 999 mls/hr 10/17/23 17:50 10/17/23 21:21 Ns IV 10/17/23 18:50 Infused .Q1H1M ONE Infusion Iohexol 100 ml 10/17/23 17:53 10/17/23 17:54 Iohexol 350 Mg/Ml 100 Ml Infus..Btl IV 10/17/23 17:54 85 ml ONCE ONE Administration Medical Decision Making Medical Decision Making [facility] Narrative: Patient has significant cellulitis of the scrotum with draining serosanguineous fluid small opening CT scan negative for any deeper abscess ultrasound also negative for deeper abscess patient diabetic will admit patient for IV antibiotic for scrotal cellulitis Differential Diagnosis Differential Diagnoses: The differential diagnosis associated with the presentation includes Scrotal abscess/cellulitis Admission/Observation Consideration of admission/observation: Escalation of care including admission/observation considered Consult Healthcare Provider Management of the patient was discussed with: Hospitalist Lab Data [facility] Lab Attestation statement: I reviewed the patient's lab results. 10/17/23 17:02 10/17/23 17:02 Labs: Lab Results 10/17/23 Range/Units 17:02 WBC 6.9 (4.8-10.8) X10*3/uL RBC 3.00 L (4.60-5.80) X10*6/uL Hgb 9.0 L (14.0-18.0) g/dl Hct 28.8 L (42.0-52.0) % MCV 96.0 (80.0-98.0) fL MCH 30.0 (27.0-33.0) pg MCHC 31.3 (31.0-36.0) g/dl RDW 16.3 H (11.0-16.0) % Plt Count 240 (160-400) X10*3/uL MPV 9.5 (9.4-12.4) fL Immature Gran % (Auto) 1.0 H (0.0-0.4) % Neut % (Auto) 75.7 H (45-73) % Lymph % (Auto) 12.8 L (20-40) % Elk % (Auto) 7.3 (2-11) % Eos % (Auto) 2.6 (0-4) % Baso % (Auto) 0.6 (0-2) % Lymph # (Auto) 0.9 L (1.2-4.9) X10*3/uL Elk # (Auto) 0.5 (0.1-1.2) X10*3/uL Eos # (Auto) 0.2 (0.0-0.4) X10*3/uL Baso # (Auto) 0.0 (0.0-0.2) X10*3/uL Abs Immat Gran (auto) 0.07 H (0.00-0.03) X10*3/uL Absolute Neuts (auto) 5.3 (2.0-8.3) x10*3/uL Absolute Nucleated RBC 0.000 (0.0-0.012) X10*3/uL Nucleated RBC % (auto) 0.0 (0.0-0.2) /100WBC Sodium 141 (135-145) mmol/L Potassium 3.8 (3.3-5.1) mmol/L Chloride 103 (96-108) mmol/L Carbon Dioxide 31 H (22-29) mmol/L Anion Gap 11 L (12-20) BUN 21 H (9-16) mg/dL Creatinine 1.22 (0.5-1.4) mg/dL Estim Creat Clear Calc 61.7 Estimated GFR 56 Random Glucose 107 (60-115) mg/dL Lactic Acid 0.6 (0.5-2.0) mmol/L Calcium 8.9 (8.4-10.2) mg/dL Total Bilirubin 0.3 (0.0-1.0) mg/dL AST 18 (5-37) U/L ALT 12 (0-40) U/L Alkaline Phosphatase 62 (39-117) U/L Total Protein 7.4 (6.5-8.0) g/dL Albumin 3.1 L (3.5-5.0) g/dL Independent Interpretation I performed an independent interpretation of an: Ultrasound and CT Scan Radiology Impression Discussion of test interpretation with radiology: I have reviewed the radiologist's reading. Discharge Plan Discharge Clinical Impression: Cellulitis of scrotum Patient Disposition: Admitted As Inpatient
[2023-10-17 17:15] LABS: MANUAL DIFF FLAG NO
[2023-10-17 17:26] LABS: Lactic Acid 0.6 mmol/L (0.5-2.0)
[2023-10-17 17:30] LABS: Alanine Aminotransferase 12 U/L (0-40); Albumin Level 3.1 g/dL (3.5-5.0); Alkaline Phosphatase 62 U/L (39-117); Anion Gap 11 (12-20); Aspartate Amino Transferase 18 U/L (5-37); Bilirubin Total 0.3 mg/dL (0.0-1.0); Blood Urea Nitrogen 21 mg/dL (9-16); Calcium 8.9 mg/dL (8.4-10.2); Carbon Dioxide 31 mmol/L (22-29); Chloride 103 mmol/L (96-108); Creatinine Clr Calc Pharmacy 61.7; Estimated Glomerular Filt Rate 56; Glucose Random 107 mg/dL (60-115); Potassium 3.8 mmol/L (3.3-5.1); Sodium 141 mmol/L (135-145); Total Protein 7.4 g/dL (6.5-8.0)
[2023-10-17] MEDS: Piperacillin Sodium/Tazobactam 3.375 GM in 0.9 % Sodium Chloride 50 ML IV (17:34)
[2023-10-17 17:40] LABS: Basophils Percent Auto 0.6 % (0-2); Eosinophils Absolute Auto 0.2 X10*3/uL (0.0-0.4); Eosinophils Percent Auto 2.6 % (0-4); Hematocrit 28.8 % (42.0-52.0); Imm Gran Abs Auto 0.07 X10*3/uL (0.00-0.03); Lymphocytes Absolute Auto 0.9 X10*3/uL (1.2-4.9); Lymphocytes Percent Auto 12.8 % (20-40); Mean Corpuscular HGB Conc 31.3 g/dl (31.0-36.0); Mean Platelet Volume 9.5 fL (9.4-12.4); Monocytes Absolute Auto 0.5 X10*3/uL (0.1-1.2); Monocytes Percent Auto 7.3 % (2-11); Neutrophils Absolute Auto 5.3 x10*3/uL (2.0-8.3); Neutrophils Percent Auto 75.7 % (45-73); Platelet Count 240 X10*3/uL (160-400); Red Cell Distribution Width 16.3 % (11.0-16.0); White Blood Count 6.9 X10*3/uL (4.8-10.8)
[2023-10-17] MEDS: iohexoL 350 MG/ML 100 ML INFUS..BTL IV (17:54)
[2023-10-17] MEDS: 0.9 % Sodium Chloride 1,000 ML 999 ML IV (18:06)
[2023-10-17 18:33] VITALS: BP 129/73; PULSE 84; RESP 18; TEMP 36.8; O2SAT 92
--- NOTE | 2023-10-17 18:37 | MHC.EDTECH ---
Pt came in with catheter, 450 mL emptied. SG
[2023-10-17 21:12] VITALS: BP 111/60; PULSE 89; RESP 17; TEMP 36.8; O2SAT 95
--- NOTE | 2023-10-17 21:22 | PHA.MEDREC ---
Pharmacy Consult ? Medication Reconciliation Pharmacy has completed the medication reconciliation. Patient came from [facility] with medication list. Agustina Arita, SukhdeepD
--- NOTE | 2023-10-17 21:44 | P.HPHOSP_ITS ---
History of Present Illness Date of Service: 10/17/23 Chief Complaint: SCROTAL PAIN This is a 83-year-old male with pertinent history of mood disorder, paroxysmal atrial fibrillation on Eliquis, chronic kidney disease stage 3, laa-pbrkgsr-ysvvgyefs diabetes mellitus, chronic back pain on opioids who was sent to the emergency department for evaluation of scrotal discomfort. Patient states it started on the day of presentation. He was admitted 2 years ago for similar presentation. Patient states that he was told by the staff at [facility] that was purulent drainage from his scrotum and that is why he was sent to the ER. Endorses scrotal discomfort and tenderness. No fever or chills. No chest discomfort, palpitations, shortness of breath, abdominal pain, nausea, vomiting, changes in urinary or bowel habits. In the emergency department, purulent drainage noted as per ER provider from the scrotum. Imaging with thickening of the scrotal wall. Review of Systems 2 Constitutional: Constitutional: Reports no additional constitutional complaints Cardiovascular: Cardiovascular: Reports no additional cardiovascular complaints Respiratory: Respiratory: Reports no additional respiratory complaints Gastrointestinal: Gastrointestinal: Reports no additional gastrointestinal complaints Genitourinary: Genitourinary: Reports no additional male genitourinary complaints [facility] Medical History (Updated 10/17/23 @ 22:08 by Ori Pichardo MD) Cellulitis of scrotum PONV (postoperative nausea and vomiting) Cardiomyopathy COVID-19 vaccine series completed Depression Venous insufficiency Dysphagia correction resident Carbuncle of gluteal region C. difficile colitis Left bundle branch block Spinal stenosis Urine retention Osteoarthritis Benign prostate hyperplasia Hypertension CKD (chronic kidney disease) stage 3, GFR 30-59 ml/min CHF (congestive heart failure) Type 2 diabetes mellitus Atrial fibrillation Family History Other No family history of cardiovascular disease Surgical History History of incision and drainage History of ligation of vein H/O spinal fusion Social History Household Members: None Housing: Snf Housing Other:: [facility] resident Are you a primary home care provider to a significant other at home: No Do you presently have visiting nurse or other home services: Yes (SNF) Unable to assess alcohol history related to: Unknown Alcohol intake: never Comment: resting in bed, eyes closed Patient Tobacco Use Status: Tobacco use Unknown Advance Directives Date on File: 10/17/23 service: Yes Current occupational status: retired Meds Allergies Allergy/AdvReac Type Severity Reaction Status Date / Time codeine AdvReac Intermediate Vomiting Verified 08/01/23 13:54 morphine AdvReac Intermediate Vomiting Verified 08/01/23 13:54 Home Medications Medication Instructions Recorded Confirmed Last Taken Type acetaminophen 325 mg tablet 650 mg PO Q4H PRN Pain 12/17/20 10/17/23 12/20/21 History bisacodyl 10 mg rectal suppository 10 mg KS DAILY PRN Constipation 12/17/20 10/17/23 12/05/20 History cyanocobalamin (vitamin B-12) 1,000 mcg PO DAILY 12/17/20 10/17/23 10/17/22 History 1,000 mcg tablet escitalopram oxalate 10 mg tablet 10 mg PO DAILY 12/17/20 10/17/23 10/17/22 History fluticasone propionate 50 1 spray intranasal DAILY 12/17/20 10/17/23 10/17/22 History mcg/actuation nasal spray,suspension loperamide 2 mg tablet 2 mg PO Q3H PRN Diarrhea 12/17/20 10/17/23 12/10/20 History magnesium hydroxide 400 mg/5 mL 30 ml PO BEDTIME PRN Constipation 12/17/20 10/17/23 12/04/20 History oral suspension (Milk of Magnesia) multivitamin 1 tab PO DAILY 12/17/20 10/17/23 10/17/22 History oxycodone 5 mg tablet 10 mg PO BID 12/17/20 10/17/23 10/17/22 History oxycodone 5 mg tablet 10 mg PO Q6H PRN Pain 12/17/20 10/17/23 Unknown History sodium phosphates 19 gram-7 118 ml KS DAILY PRN Constipation 12/17/20 10/17/23 Unknown History gram/118 mL enema (Fleet Enema) apixaban 2.5 mg tablet 2.5 mg PO BID 08/17/21 10/17/23 10/17/22 History diphenhydramine HCl 25 mg tablet 25 mg PO Q6H PRN PURITIS 12/20/21 10/17/23 12/19/21 History calcium polycarbophil 625 mg tablet 625 mg PO BID 10/17/23 10/17/23 10/17/22 History cephalexin 500 mg tablet 500 mg PO QID 10/17/23 10/17/23 10/17/22 History lidocaine 4 % topical patch 1 patch topical DAILY 10/17/23 10/17/23 10/17/22 History mirabegron 50 mg tablet,extended 50 mg PO DAILY 10/17/23 10/17/23 10/17/22 History release 24 hr ondansetron 4 mg disintegrating 4 mg PO Q6H PRN Nausea 10/17/23 10/17/23 Unknown History tablet Physical Exam 2 Vital Signs and Narrative: Vital Signs: Last Vital Signs Temp 98.2 F 10/17/23 21:12 Pulse 89 10/17/23 21:12 Resp 17 10/17/23 21:12 BP 111/60 10/17/23 21:12 Pulse Ox 95 10/17/23 21:12 O2 Del Method Room Air 10/17/23 21:12 BMI result Body Mass Index 31.2 Elderly male lying in bed in no distress Neck supple, no JVD Regular rate and rhythm, S1-S2 heard Regular breath sounds bilaterally, no wheezing or crackles appreciated Abdomen soft nontender, no guarding, no rigidity Patient is awake, alert and oriented to self, place, time and person ; no focal motor deficit Scrotum with erythema and tenderness to touch Psych: Normal mood No pedal edema Results Labs 10/17/23 17:02 10/17/23 17:02 Labs: Laboratory Results - last 24 hr 10/17/23 17:02 MCV 96.0 MCH 30.0 MCHC 31.3 RDW 16.3 H Plt Count 240 MPV 9.5 Immature Gran % (Auto) 1.0 H Neut % (Auto) 75.7 H Lymph % (Auto) 12.8 L Dixon % (Auto) 7.3 Eos % (Auto) 2.6 Baso % (Auto) 0.6 Lymph # (Auto) 0.9 L [place] # (Auto) 0.5 Eos # (Auto) 0.2 Baso # (Auto) 0.0 Abs Immat Gran (auto) 0.07 H Absolute Neuts (auto) 5.3 Absolute Nucleated RBC 0.000 Nucleated RBC % (auto) 0.0 Anion Gap 11 L Estim Creat Clear Calc 61.7 Estimated GFR 56 Random Glucose 107 Lactic Acid 0.6 Calcium 8.9 Total Bilirubin 0.3 AST 18 ALT 12 Alkaline Phosphatase 62 Total Protein 7.4 Albumin 3.1 L Imaging Radiologist's Impressions: Impressions Abdomen/Pelvis CT 10/17/23 18:19 IMPRESSION: 1. Large amount of stool in the rectum with some mild perirectal inflammatory change suggesting stercoral colitis. Similar changes were seen on the 12/20/2021 CT scan. 2. Cholelithiasis without cholecystitis. 3. Staghorn calculus left kidney with mild atrophy of the left kidney. 4. Suprapubic cystostomy catheter in place with thickened bladder wall. 5. Other incidental findings as described above. 6. The scrotum is not included on this study but some mild skin thickening is seen proximally. Fleischner guidelines were followed. Assessment and Plan (1) Cellulitis of scrotum: Status: Resolved Plan This is a 83-year-old male with pertinent history of mood disorder, paroxysmal atrial fibrillation on Eliquis, chronic kidney disease stage 3, ksy-hgkkqbt-vnrlgmelr diabetes mellitus, chronic back pain on opioids who was sent to the emergency department for evaluation of scrotal discomfort. #. Scrotal cellulitis with ?underlying abscess: Will admit patient and initiate empiric IV antibiotics. No sepsis. Obtaining scrotal ultrasound to delineate underlying anatomy. #. Pom-esbmqsr-ybemjwnoa diabetes mellitus: Initiating Accu-Cheks with sliding scale insulin #. Staghorn calculus of the left kidney: Consulting Urology #. Constipation with stercoral colitis: Administering enema #. Paroxysmal atrial fibrillation: On Eliquis #. Chronic back pain: On opioids #. Normocytic anemia: Hemoglobin above transfusion threshold DVT prophylaxis: Eliquis Full code Admit as inpatient and will require two night minimum hospital stay for IV antibiotics (as above), which is not possible in a lesser acute setting. Specialist consult pending Quality Stroke Does the patient have a stroke diagnosis?: No VTE Prior VTE?: No VTE Risk Level:: Medical - moderate - high VTE Device Contraindication: Treatment Not Indicated VTE Drug Contraindication: N/A - Med Ordered
--- NOTE | 2023-10-17 21:49 | PC.NURSE ---
laila esteban from the [place] called, update given, informed of admission to hospital service
[2023-10-17 22:00] VITALS: BP 131/62; PULSE 75; RESP 20; O2SAT 95
--- NOTE | 2023-10-17 22:20 | PC.NURSE ---
pt moved to hospital bed with bedspread cutter earl assist, pt positioned for comfort with multiple pillows and blankets. call arguelles in reach, pt verbalized understanding of use.
--- NOTE | 2023-10-17 22:28 | PHA.PROG ---
Admission Date/Time: October 17, 2023 21:43 Indication: Scrotal cellulitis Weight in k.4 kg Adjusted body weight in K.6 KG Carson body weight in K.8 KG Obesity Dosing Indication % IBW: 133% Serum Creatinine - Last 168 Hours 10/17/23 17:02 Creatinine 1.22 Estimated CrCl and GFR - Last 168 Hours 10/17/23 17:02 Estim Creat Clear Calc 61.7 Estimated GFR 56 Vancomycin Loading Dose: 2000 MG Current Vancomycin Dosing Regimen: 1500 MG q24h Date and Time for next Vancomycin Level to be drawn: 10/20 @ 1600 Pharmacist Comments on Vancomycin Plan: Patient received an adequate load dose in the ER 10/17 @ 1807 Maintenance dose vancomyinc 1500 mg Q24H is scheduled to start 10/18 @ 1800. Expected [id number] with a trough of 15.2 Level will be drawn prior to 4th dose Pharmacy will monitor renal function daily. Agustina Arita PharmD Vancomycin dosing will take advantage of [employer] as a clinical decision support tool that uses Bayesian modeling to calculate individual patient's pharmacokinetic parameters and forecast the patient's drug concentration time course with the target goal AUC 24 range of 400 - 600 mg/L/hr.
[2023-10-18] MEDS: 0.9 % Sodium Chloride Flush 3 ML SYRINGE IVFLUSH ×3 (00:09→23:47)
[2023-10-18] MEDS: cefTRIAXone sodium 1 GM in 0.9 % Sodium Chloride 50 ML IV ×2 (00:26→23:41)
[2023-10-18 02:59] VITALS: BP 119/57; PULSE 77; RESP 17; TEMP 36.4; O2SAT 92
--- NOTE | 2023-10-18 03:10 | PC.NURSE ---
handoff to laila carter
[2023-10-18 06:33] VITALS: BP 129/63; PULSE 74; RESP 17; TEMP 37; O2SAT 93
[2023-10-18 07:34] LABS: Glucose, Whole Blood 80 mg/dL (60-115)
--- NOTE | 2023-10-18 09:47 | P.PNIM_ITS ---
Subjective Subjective Date of Service: 10/18/23 Interval History: f/u on scrotal cellulitis has some pain in the scrotum Physical Exam 2 Vital Signs: Vital Signs: Last Vital Signs Temp 98.6 F 10/18/23 06:33 Pulse 74 10/18/23 06:33 Resp 17 10/18/23 06:33 BP 129/63 10/18/23 06:33 Pulse Ox 93 10/18/23 06:33 O2 Del Method Room Air 10/18/23 06:33 BMI result Body Mass Index 31.2 General: AO X 3, no acute distress Resp: CTA bilateral CVS: S1,S2,RRR GI: +BS, NT, no distention Skin: No rash : suprapubic cath, erythema with some tendernes of scrotum Neuro: motor grossly intact Psych: appropriate affect Objective Data Active Medications Acetaminophen (Acetaminophen 325 Mg Tablet) 650 mg PO Q6H PRN PRN Reason: Pain, Mild (Pain Scale 1-3) Apixaban (Apixaban 2.5 Mg Tablet) 2.5 mg PO BID [facility] Ascorbic Acid (Ascorbic Acid 500 Mg Tablet) 1,000 mg PO DAILY [facility] Bisacodyl (Bisacodyl 10 Mg Supp.Rect) 10 mg NM DAILY PRN PRN Reason: Constipation Calcium Polycarbophil (Calcium Polycarbophil Tablet) 2 tab PO BID [facility] Cyanocobalamin (Cyanocobalamin (Vitamin B-12) 1,000 Mcg Tablet) 1,000 mcg PO DAILY [facility] Dextrose (Dextrose 50 % 25 Gm/50 Ml Syringe) 25 gm IVPUSH Q15M PRN; Protocol PRN Reason: per Hypoglycemia Standing Ord. Diphenhydramine HCl (Diphenhydramine Hcl 25 Mg Capsule) 25 mg PO Q6H PRN PRN Reason: PURITIS Escitalopram Oxalate (Escitalopram Oxalate 10 Mg Tablet) 10 mg PO DAILY [facility] Fluticasone Propionate (Fluticasone Propionate Nasal 16 Gm [place]) 1 spray NOSTRIL-B DAILY [facility] Glucose (Glucose Gel 15 Gm Gel..Gram.) 15 gm PO Q15M PRN; Protocol PRN Reason: per Hypoglycemia Standing Ord. Ceftriaxone Sodium 1 gm/ (Sodium Chloride) 50 mls @ 100 mls/hr IV Q24H [facility] Last Infusion: 10/18/23 01:00 Dose: Infused Documented By: LOYD Vancomycin HCl 1,500 mg/ (Sodium Chloride) 500 mls @ 333.333 mls/hr IV Q24H [facility] Insulin Human Lispro (Insulin Lispro 100 Unit/Ml 3 Ml Vial) 0 unit SUBCUT QIDACHS [facility]; Protocol Last Admin: 10/18/23 08:31 Dose: Not Given Documented By: STORM Non-Admin Reason: No Insulin Coverage Comments: Glucose 80, below sliding scale. Insulin not given per order. Lidocaine (Lidocaine 4 % Patch Adh..Patch) 1 patch TRANSDERMA DAILY [facility]; Protocol Magnesium Hydroxide (Milk Of Magnesia 30 Ml Oral.Susp) 30 ml PO BEDTIME PRN PRN Reason: Constipation Melatonin (Melatonin 3 Mg Tablet) 6 mg PO BEDTIME PRN PRN Reason: Insomnia Mirabegron (Mirabegron 50 Mg Tab.Er.24h) 50 mg PO DAILY [facility] Multivitamins/Vitamin C (Multivitamin Tablet) 1 tab PO DAILY [facility] Ondansetron HCl (Ondansetron Hcl 4 Mg/2 Ml Vial) 4 mg IVPUSH Q8H PRN PRN Reason: Nausea and Vomiting Oxycodone HCl (Oxycodone Hcl Immed Release 5 Mg Tablet) 10 mg PO BID [facility] Pharmacy Consult (Consult Rx Vancomycin Dosing) 1 each MISCELLANE DAILY PRN PRN Reason: Consult order Sodium Biphosphate/Sodium Phosphate (Sodium Phosphate,Canadian-Dibasic 133 Ml Enema) 118 ml NM DAILY PRN PRN Reason: Constipation Sodium Chloride (0.9 % Sodium Chloride Flush 3 Ml Syringe) 3 ml IVFLUSH QSHIFT [facility] Last Admin: 10/18/23 00:09 Dose: 3 ml Documented By: LOYD Labs 10/17/23 17:02 10/17/23 17:02 Labs: Laboratory Results - last 24 hr 10/17/23 10/18/23 17:02 07:28 MCV 96.0 MCH 30.0 MCHC 31.3 RDW 16.3 H Plt Count 240 MPV 9.5 Immature Gran % (Auto) 1.0 H Neut % (Auto) 75.7 H Lymph % (Auto) 12.8 L Canadian % (Auto) 7.3 Eos % (Auto) 2.6 Baso % (Auto) 0.6 Lymph # (Auto) 0.9 L [place] # (Auto) 0.5 Eos # (Auto) 0.2 Baso # (Auto) 0.0 Abs Immat Gran (auto) 0.07 H Absolute Neuts (auto) 5.3 Absolute Nucleated RBC 0.000 Nucleated RBC % (auto) 0.0 Anion Gap 11 L Estim Creat Clear Calc 61.7 Estimated GFR 56 POC Glucose 80 Random Glucose 107 Lactic Acid 0.6 Calcium 8.9 Total Bilirubin 0.3 AST 18 ALT 12 Alkaline Phosphatase 62 Total Protein 7.4 Albumin 3.1 L Microbiology Microbiology Results: Microbiology 10/17/23 17:03 Gram Stain - Final Scrotum Routine Culture - Preliminary Culture in progress. Assessment and Plan (1) Cellulitis of scrotum: Status: Acute Plan This is a 83-year-old male with pertinent history of mood disorder, paroxysmal atrial fibrillation on Eliquis, chronic kidney disease stage 3, prr-iwupblz-tvrrnpusq diabetes mellitus, chronic back pain on opioids who was sent to the emergency department for evaluation of scrotal discomfort. Scrotal cellulitis, no abscess on US -continue Ceftriasone + Vanco 10/17 -Uro consult Zbo-sklatih-mlmqhmhji diabetes mellitus - SSI Staghorn calculus of the left kidney -Uro consult Constipation with stercoral colitis -Enema Paroxysmal atrial fibrillation, rate controlled, -On Eliquis Chronic back pain: On opioids Normocytic anemia: Hemoglobin above transfusion threshold Chronic urinary retention --has SP catheter DVT prophylaxis: [facility] Full code Inpatient for cellulitis of the scrotum with high risk of raul's gangrene if not treated agresively with Iv Abx Quality Stroke Does the patient have a stroke diagnosis?: No VTE Prior VTE?: No VTE Risk Level:: Medical - moderate - high VTE Device Contraindication: Treatment Not Indicated VTE Drug Contraindication: N/A - Med Ordered
[2023-10-18] MEDS: oxyCODONE HCl Immed Release 5 MG TABLET 10 MG PO ×2 (10:10→20:34)
[2023-10-18] MEDS: Escitalopram Oxalate 10 MG TABLET PO (10:11)
[2023-10-18] MEDS: Apixaban 2.5 MG TABLET PO ×2 (10:11→20:47)
[2023-10-18] MEDS: Mirabegron 50 MG TAB.ER.24H PO (10:29)
[2023-10-18] MEDS: Fluticasone Propionate Nasal 16 GM SPRAY 1 SPRAY NOSTRIL-B (10:31)
--- NOTE | 2023-10-18 11:15 | PC.NURSE ---
300ml drained from Jacobs drainage bag.
--- NOTE | 2023-10-18 12:43 | PC.NURSE ---
patient awake/alert to person/place, pt supra peubic cath patient/draining, pt currently denying pain/discomfort, poc obtained- no insulin coverage to be given, kitchen called for patient tray for lunch, call arguelles within reach, pt resting comfortably at this time, breathing equal and non labored- pt speaking in full sentences, social work supervisor at bedside speaking with patient, will continue to monitor
[2023-10-18 12:45] LABS: Glucose, Whole Blood 82 mg/dL (60-115)
--- NOTE | 2023-10-18 13:23 | MHC.CM.PN ---
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
[2023-10-18 13:26] LABS: MANUAL DIFF FLAG NO
[2023-10-18 13:37] LABS: Basophils Percent Auto 0.5 % (0-2); Eosinophils Absolute Auto 0.2 X10*3/uL (0.0-0.4); Eosinophils Percent Auto 2.5 % (0-4); Hematocrit 27.6 % (42.0-52.0); Hemoglobin 8.6 g/dl (14.0-18.0); Imm Gran Abs Auto 0.03 X10*3/uL (0.00-0.03); Imm Gran Pct Auto 0.5 % (0.0-0.4); Lymphocytes Absolute Auto 0.8 X10*3/uL (1.2-4.9); Lymphocytes Percent Auto 13.9 % (20-40); Mean Corpuscular HGB Conc 31.2 g/dl (31.0-36.0); Mean Corpuscular Volume 96.2 fL (80.0-98.0); Mean Platelet Volume 9.3 fL (9.4-12.4); Monocytes Absolute Auto 0.4 X10*3/uL (0.1-1.2); Monocytes Percent Auto 7.3 % (2-11); Neutrophils Absolute Auto 4.5 x10*3/uL (2.0-8.3); Neutrophils Percent Auto 75.3 % (45-73); Platelet Count 230 X10*3/uL (160-400); Red Blood Count 2.87 X10*6/uL (4.60-5.80); Red Cell Distribution Width 16.2 % (11.0-16.0); White Blood Count 5.9 X10*3/uL (4.8-10.8)
[2023-10-18 13:57] LABS: Anion Gap 9 (12-20); Blood Urea Nitrogen 15 mg/dL (9-16); Calcium 8.5 mg/dL (8.4-10.2); Carbon Dioxide 29 mmol/L (22-29); Chloride 107 mmol/L (96-108); Creatinine Clr Calc Pharmacy 69.7; Estimated Average Glucose 128 mg/dL; Estimated Glomerular Filt Rate > 60; Glucose Random 84 mg/dL (60-115); Hemoglobin A1c % 6.1 % (<6.0); Potassium 3.8 mmol/L (3.3-5.1); Sodium 141 mmol/L (135-145)
[2023-10-18 15:06] VITALS: BP 101/61; PULSE 75; RESP 16; TEMP 36.4; O2SAT 92
[2023-10-18 15:21] VITALS: BMI 30.5
[2023-10-18 15:26] VITALS: BP 101/61; PULSE 75; RESP 16; TEMP 36.4; O2SAT 92
[2023-10-18 16:23] LABS: Glucose, Whole Blood 91 mg/dL (60-115)
[2023-10-18] MEDS: vancomycin HCL 1,500 MG in 0.9 % Sodium Chloride 500 ML 333.33 MG IV (17:08)
[2023-10-18 19:12] VITALS: BP 121/67; PULSE 74; RESP 18; TEMP 36.6; O2SAT 92
[2023-10-18 20:05] LABS: Glucose, Whole Blood 121 mg/dL (60-115)
[2023-10-18] MEDS: calcium polycarbophiL TABLET 2 TAB PO (20:47)
[2023-10-19 03:51] VITALS: BP 124/78; PULSE 78; RESP 18; TEMP 37.1; O2SAT 97
[2023-10-19] MEDS: Acetaminophen 325 MG TABLET 650 MG PO (03:56)
--- NOTE | 2023-10-19 06:00 | PC.NURSE ---
patient complains of increased back pain, md notified and ok to give scheduled lidocaine patch and oxycodone early
[2023-10-19] MEDS: oxyCODONE HCl Immed Release 5 MG TABLET 10 MG PO ×2 (06:06→22:10)
[2023-10-19] MEDS: Lidocaine 4 % Patch ADH..PATCH 1 PATCH TRANSDERMA (06:06)
[2023-10-19 06:38] LABS: Creatinine Clr Calc Pharmacy 63.6; Estimated Glomerular Filt Rate 59
[2023-10-19 06:48] VITALS: BP 127/58; PULSE 86; RESP 17; TEMP 36.3; O2SAT 92
[2023-10-19 06:54] LABS: Glucose, Whole Blood 84 mg/dL (60-115)
[2023-10-19] MEDS: Escitalopram Oxalate 10 MG TABLET PO (07:52)
[2023-10-19] MEDS: 0.9 % Sodium Chloride Flush 3 ML SYRINGE IVFLUSH ×3 (07:52→22:14)
[2023-10-19] MEDS: Cyanocobalamin (Vitamin B-12) 1,000 MCG TABLET 1000 MCG PO (07:52)
[2023-10-19] MEDS: Mirabegron 50 MG TAB.ER.24H PO (07:52)
[2023-10-19] MEDS: Multivitamin TABLET 1 TAB PO (07:52)
[2023-10-19] MEDS: Ascorbic Acid 500 MG TABLET 1000 MG PO (07:52)
[2023-10-19] MEDS: Apixaban 2.5 MG TABLET PO ×2 (07:52→22:10)
[2023-10-19] MEDS: Fluticasone Propionate Nasal 16 GM SPRAY 1 SPRAY NOSTRIL-B (07:53)
[2023-10-19 11:07] LABS: Glucose, Whole Blood 94 mg/dL (60-115)
[2023-10-19 15:15] VITALS: BP 118/56; PULSE 90; RESP 20; TEMP 36.3; O2SAT 91
[2023-10-19] MEDS: vancomycin HCL 1,500 MG in 0.9 % Sodium Chloride 500 ML 333.33 MG IV (17:20)
[2023-10-19 19:31] VITALS: BP 101/58; PULSE 94; RESP 19; TEMP 36.7; O2SAT 93
[2023-10-19 20:17] LABS: Glucose, Whole Blood 141 mg/dL (60-115)
[2023-10-19] MEDS: calcium polycarbophiL TABLET 2 TAB PO (22:10)
[2023-10-19] MEDS: cefTRIAXone sodium 1 GM in 0.9 % Sodium Chloride 50 ML IV (22:14)
[2023-10-20 03:35] VITALS: BP 120/62; PULSE 85; RESP 19; TEMP 36.4; O2SAT 93
[2023-10-20 06:20] LABS: Creatinine Clr Calc Pharmacy 82.7; Estimated Glomerular Filt Rate > 60
--- NOTE | 2023-10-20 07:29 | PC.NURSE ---
Refusing POC this AM.
[2023-10-20 08:00] VITALS: BP 118/56; PULSE 68; RESP 16; TEMP 36.8
[2023-10-20] MEDS: 0.9 % Sodium Chloride Flush 3 ML SYRINGE IVFLUSH ×3 (08:34→21:06)
[2023-10-20] MEDS: Lidocaine 4 % Patch ADH..PATCH 1 PATCH TRANSDERMA (08:36)
[2023-10-20] MEDS: Ascorbic Acid 500 MG TABLET 1000 MG PO (08:37)
[2023-10-20] MEDS: calcium polycarbophiL TABLET 2 TAB PO ×2 (08:37→21:04)
[2023-10-20] MEDS: Escitalopram Oxalate 10 MG TABLET PO (08:37)
[2023-10-20] MEDS: Mirabegron 50 MG TAB.ER.24H PO (08:37)
[2023-10-20] MEDS: Apixaban 2.5 MG TABLET PO ×2 (08:37→21:06)
[2023-10-20] MEDS: Cyanocobalamin (Vitamin B-12) 1,000 MCG TABLET 1000 MCG PO (08:38)
[2023-10-20] MEDS: Fluticasone Propionate Nasal 16 GM SPRAY 1 SPRAY NOSTRIL-B (08:38)
[2023-10-20] MEDS: oxyCODONE HCl Immed Release 5 MG TABLET 10 MG PO ×2 (08:38→21:05)
[2023-10-20] MEDS: Multivitamin TABLET 1 TAB PO (08:38)
[2023-10-20 08:40] LABS: Glucose, Whole Blood 83 mg/dL (60-115)
--- NOTE | 2023-10-20 10:01 | P.PNIM_ITS ---
Subjective Subjective Date of Service: 10/20/23 Interval History: f/u on scrotal cellulitis has some pain in the scrotum urology is planing Physical Exam 2 Vital Signs: Vital Signs: Last Vital Signs Temp 98.2 F 10/20/23 08:00 Pulse 68 10/20/23 08:00 Resp 16 10/20/23 08:00 BP 118/56 L 10/20/23 08:00 Pulse Ox 93 10/20/23 03:35 O2 Del Method Room Air 10/20/23 08:00 BMI result Body Mass Index 30.5 Const: Other: General: AO X 3, no acute distress Resp: CTA bilateral CVS: S1,S2,RRR GI: +BS, NT, no distention Skin: No rash : suprapubic cath, erythema with some tendernes of scrotum, no drainage Neuro: motor grossly intact Psych: appropriate affect Objective Data Active Medications Acetaminophen (Acetaminophen 325 Mg Tablet) 650 mg PO Q6H PRN PRN Reason: Pain, Mild (Pain Scale 1-3) Last Admin: 10/19/23 03:56 Dose: 650 mg Documented By: LALITA Apixaban (Apixaban 2.5 Mg Tablet) 2.5 mg PO BID [facility] Last Admin: 10/20/23 08:37 Dose: 2.5 mg Documented By: ROSALIND Ascorbic Acid (Ascorbic Acid 500 Mg Tablet) 1,000 mg PO DAILY [facility] Last Admin: 10/20/23 08:37 Dose: 1,000 mg Documented By: ROSALIND Bisacodyl (Bisacodyl 10 Mg Supp.Rect) 10 mg [place] DAILY PRN PRN Reason: Constipation Calcium Polycarbophil (Calcium Polycarbophil Tablet) 2 tab PO BID [facility] Last Admin: 10/20/23 08:37 Dose: 2 tab Documented By: ROSALIND Cyanocobalamin (Cyanocobalamin (Vitamin B-12) 1,000 Mcg Tablet) 1,000 mcg PO DAILY [facility] Last Admin: 10/20/23 08:38 Dose: 1,000 mcg Documented By: ROSALIND Dextrose (Dextrose 50 % 25 Gm/50 Ml Syringe) 25 gm IVPUSH Q15M PRN; Protocol PRN Reason: per Hypoglycemia Standing Ord. Diphenhydramine HCl (Diphenhydramine Hcl 25 Mg Capsule) 25 mg PO Q6H PRN PRN Reason: PURITIS Escitalopram Oxalate (Escitalopram Oxalate 10 Mg Tablet) 10 mg PO DAILY [facility] Last Admin: 10/20/23 08:37 Dose: 10 mg Documented By: ROSALIND Fluticasone Propionate (Fluticasone Propionate Nasal 16 Gm [place]) 1 spray NOSTRIL-B DAILY [facility] Last Admin: 10/20/23 08:38 Dose: 1 spray Documented By: ROSALIND Glucose (Glucose Gel 15 Gm Gel..Gram.) 15 gm PO Q15M PRN; Protocol PRN Reason: per Hypoglycemia Standing Ord. Ceftriaxone Sodium 1 gm/ (Sodium Chloride) 50 mls @ 100 mls/hr IV Q24H [facility] Last Infusion: 10/19/23 23:10 Dose: Infused Documented By: LAURI Vancomycin HCl 1,500 mg/ (Sodium Chloride) 500 mls @ 333.333 mls/hr IV Q24H [facility] Last Infusion: 10/19/23 19:04 Dose: Infused Documented By: LAURI Insulin Human Lispro (Insulin Lispro 100 Unit/Ml 3 Ml Vial) 0 unit SUBCUT QIDACHS [facility]; Protocol Last Admin: 10/20/23 07:30 Dose: Not Given Documented By: ROSALIND Non-Admin Reason: pt refused POC Lidocaine (Lidocaine 4 % Patch Adh..Patch) 1 patch TRANSDERMA DAILY [facility]; Protocol Last Admin: 10/20/23 08:36 Dose: 1 patch Documented By: ROSALIND Magnesium Hydroxide (Milk Of Magnesia 30 Ml Oral.Susp) 30 ml PO BEDTIME PRN PRN Reason: Constipation Melatonin (Melatonin 3 Mg Tablet) 6 mg PO BEDTIME PRN PRN Reason: Insomnia Mirabegron (Mirabegron 50 Mg Tab.Er.24h) 50 mg PO DAILY [facility] Last Admin: 10/20/23 08:37 Dose: 50 mg Documented By: ROSALIND Multivitamins/Vitamin C (Multivitamin Tablet) 1 tab PO DAILY [facility] Last Admin: 10/20/23 08:38 Dose: 1 tab Documented By: ROSALIND Ondansetron HCl (Ondansetron Hcl 4 Mg/2 Ml Vial) 4 mg IVPUSH Q8H PRN PRN Reason: Nausea and Vomiting Oxycodone HCl (Oxycodone Hcl Immed Release 5 Mg Tablet) 10 mg PO BID [facility] Last Admin: 10/20/23 08:38 Dose: 10 mg Documented By: ROSALIND Pharmacy Consult (Consult Rx Vancomycin Dosing) 1 each MISCELLANE DAILY PRN PRN Reason: Consult order Sodium Biphosphate/Sodium Phosphate (Sodium Phosphate,[place]-Dibasic 133 Ml Enema) 118 ml NE DAILY PRN PRN Reason: Constipation Sodium Chloride (0.9 % Sodium Chloride Flush 3 Ml Syringe) 3 ml IVFLUSH QSHIFT [facility] Last Admin: 10/20/23 08:34 Dose: 3 ml Documented By: ROSALIND Labs 10/18/23 13:16 10/20/23 05:48 Labs: Laboratory Results - last 24 hr 10/19/23 10/19/23 10/20/23 11:02 20:14 05:48 Estim Creat Clear Calc 82.7 Estimated GFR > 60 POC Glucose 94 141 H 10/20/23 08:35 Estim Creat Clear Calc Estimated GFR POC Glucose 83 Microbiology Microbiology Results: Microbiology 10/17/23 17:20 Blood Culture - Preliminary Blood - Venous No growth after 48 hours. 10/17/23 17:02 Blood Culture - Preliminary Blood - Venous No growth after 48 hours. 10/17/23 17:03 Gram Stain - Final Scrotum Routine Culture - Final Assessment and Plan (1) Cellulitis of scrotum: Status: Acute Plan This is a 83-year-old male with pertinent history of mood disorder, paroxysmal atrial fibrillation on Eliquis, chronic kidney disease stage 3, zat-mcbhfqj-cbjedgskl diabetes mellitus, chronic back pain on opioids who was sent to the emergency department for evaluation of scrotal discomfort. Scrotal cellulitis, no abscess on US -continue Ceftriasone + Vanco 10/17, dc vanco and add PO Doxy -Uro is planning cystogram on sunday Staghorn calculus of the left kidney -Uro consult Glj-dlpsqcl-yrizxshkz diabetes mellitus - SSI Constipation with stercoral colitis -bowel regimen Paroxysmal atrial fibrillation, rate controlled, -On Eliquis Chronic back pain: On opioids Normocytic anemia: Hemoglobin above transfusion threshold Chronic urinary retention --has SP catheter DVT prophylaxis: Eliquis Full code Inpatient for cellulitis of the scrotum with high risk of raul's gangrene if not treated agresively with Iv Abx, and need further testing Quality Stroke Does the patient have a stroke diagnosis?: No VTE Prior VTE?: No VTE Risk Level:: Medical - moderate - high VTE Device Contraindication: Treatment Not Indicated VTE Drug Contraindication: N/A - Med Ordered
[2023-10-20] MEDS: Doxycycline Monohydrate 100 MG CAPSULE PO ×2 (10:19→21:06)
[2023-10-20 11:15] LABS: Glucose, Whole Blood 110 mg/dL (60-115)
[2023-10-20 16:00] VITALS: BP 111/58; PULSE 90; RESP 16; TEMP 36.7; O2SAT 92
--- NOTE | 2023-10-20 16:48 | PC.NURSE ---
Continues to refuse MD WES notified.
[2023-10-20 19:27] VITALS: BP 111/58; PULSE 97; RESP 20; TEMP 37; O2SAT 91
[2023-10-20 20:23] LABS: Glucose, Whole Blood 144 mg/dL (60-115)
[2023-10-20] MEDS: cefTRIAXone sodium 1 GM in 0.9 % Sodium Chloride 50 ML IV (23:43)
[2023-10-21 02:24] VITALS: BP 112/58; PULSE 96; RESP 18; TEMP 36.2; O2SAT 92
[2023-10-21] MEDS: Acetaminophen 325 MG TABLET 650 MG PO (04:06)
[2023-10-21] MEDS: diphenhydrAMINE HCL 25 MG CAPSULE PO (04:07)
--- NOTE | 2023-10-21 06:54 | PC.NURSE ---
Assumed care of patient at 19:15 (10/20). A&Ox4. Continues with baseline BUE resting tremors. Rings appropriately to make needs known. Lungs dim in bases on RA. Denies sob. Breathing is even and unlabored without distress. Tolerates meds whole in pudding without n/v. Chronic back pain well managed with current regimen. Bedfast, q.2h repositioning provided. Bed alarm on and high falls measures in place. Handoff report given 06:45.
[2023-10-21 07:27] VITALS: BP 145/71; PULSE 103; RESP 18; TEMP 37.1; O2SAT 94
[2023-10-21 07:54] LABS: Glucose, Whole Blood 100 mg/dL (60-115)
--- NOTE | 2023-10-21 08:15 | HO.PM.IMPN ---
Subjective Subjective Date of Service: 10/21/23 Interval History: f/u on scrotal cellulitis, has no new complaint, he is refusing BS test, glucose have been near normal Physical Exam Vital Signs: Vital Signs: Last Vital Signs Temp 98.8 F 10/21/23 07:27 Pulse 103 H 10/21/23 07:27 Resp 18 10/21/23 07:27 BP 145/71 H 10/21/23 07:27 Pulse Ox 94 10/21/23 07:27 O2 Del Method Room Air 10/21/23 07:27 BMI result Body Mass Index 30.5 Const: Other: General: AO X 3, no acute distress Resp: CTA bilateral CVS: S1,S2,RRR GI: +BS, NT, no distention Skin: No rash : suprapubic cath, erythema with some tendernes of scrotum, no drainage Neuro: motor grossly intact Psych: appropriate affect Objective Data Active Medications Acetaminophen (Acetaminophen 325 Mg Tablet) 650 mg PO Q6H PRN PRN Reason: Pain, Mild (Pain Scale 1-3) Last Admin: 10/21/23 04:06 Dose: 650 mg Documented By: MARK Apixaban (Apixaban 2.5 Mg Tablet) 2.5 mg PO BID [facility] Last Admin: 10/20/23 21:06 Dose: 2.5 mg Documented By: MARK Ascorbic Acid (Ascorbic Acid 500 Mg Tablet) 1,000 mg PO DAILY [facility] Last Admin: 10/20/23 08:37 Dose: 1,000 mg Documented By: ROSALIND Bisacodyl (Bisacodyl 10 Mg Supp.Rect) 10 mg [place] DAILY PRN PRN Reason: Constipation Calcium Polycarbophil (Calcium Polycarbophil Tablet) 2 tab PO BID [facility] Last Admin: 10/20/23 21:04 Dose: 2 tab Documented By: MARK Cyanocobalamin (Cyanocobalamin (Vitamin B-12) 1,000 Mcg Tablet) 1,000 mcg PO DAILY [facility] Last Admin: 10/20/23 08:38 Dose: 1,000 mcg Documented By: ROSALIND Dextrose (Dextrose 50 % 25 Gm/50 Ml Syringe) 25 gm IVPUSH Q15M PRN; Protocol PRN Reason: per Hypoglycemia Standing Ord. Diphenhydramine HCl (Diphenhydramine Hcl 25 Mg Capsule) 25 mg PO Q6H PRN PRN Reason: PURITIS Last Admin: 10/21/23 04:07 Dose: 25 mg Documented By: MARK Doxycycline Monohydrate (Doxycycline Monohydrate 100 Mg Capsule) 100 mg PO BID [facility] Last Admin: 10/20/23 21:06 Dose: 100 mg Documented By: MARK Escitalopram Oxalate (Escitalopram Oxalate 10 Mg Tablet) 10 mg PO DAILY [facility] Last Admin: 10/20/23 08:37 Dose: 10 mg Documented By: ROSALIND Fluticasone Propionate (Fluticasone Propionate Nasal 16 Gm [place]) 1 spray NOSTRIL-B DAILY [facility] Last Admin: 10/20/23 08:38 Dose: 1 spray Documented By: ROSALIND Glucose (Glucose Gel 15 Gm Gel..Gram.) 15 gm PO Q15M PRN; Protocol PRN Reason: per Hypoglycemia Standing Ord. Ceftriaxone Sodium 1 gm/ (Sodium Chloride) 50 mls @ 100 mls/hr IV Q24H [facility] Last Infusion: 10/21/23 00:13 Dose: Infused Documented By: MARK Insulin Human Lispro (Insulin Lispro 100 Unit/Ml 3 Ml Vial) 0 unit SUBCUT QIDACHS [facility]; Protocol Last Admin: 10/20/23 20:50 Dose: Not Given Documented By: MARK Non-Admin Reason: gLUCOSE OUT OF RANGE 144 Lidocaine (Lidocaine 4 % Patch Adh..Patch) 1 patch TRANSDERMA DAILY [facility]; Protocol Last Admin: 10/20/23 08:36 Dose: 1 patch Documented By: ROSALIND Magnesium Hydroxide (Milk Of Magnesia 30 Ml Oral.Susp) 30 ml PO BEDTIME PRN PRN Reason: Constipation Melatonin (Melatonin 3 Mg Tablet) 6 mg PO BEDTIME PRN PRN Reason: Insomnia Mirabegron (Mirabegron 50 Mg Tab.Er.24h) 50 mg PO DAILY [facility] Last Admin: 10/20/23 08:37 Dose: 50 mg Documented By: ROSALIND Multivitamins/Vitamin C (Multivitamin Tablet) 1 tab PO DAILY [facility] Last Admin: 10/20/23 08:38 Dose: 1 tab Documented By: ROSALIND Ondansetron HCl (Ondansetron Hcl 4 Mg/2 Ml Vial) 4 mg IVPUSH Q8H PRN PRN Reason: Nausea and Vomiting Oxycodone HCl (Oxycodone Hcl Immed Release 5 Mg Tablet) 10 mg PO BID [facility] Last Admin: 10/20/23 21:05 Dose: 10 mg Documented By: MARK Pharmacy Consult (Consult Rx Vancomycin Dosing) 1 each MISCELLANE DAILY PRN PRN Reason: Consult order Sodium Biphosphate/Sodium Phosphate (Sodium Phosphate,[place]-Dibasic 133 Ml [place]) 118 ml [place] DAILY PRN PRN Reason: Constipation Sodium Chloride (0.9 % Sodium Chloride Flush 3 Ml Syringe) 3 ml IVFLUSH QSHIFT [facility] Last Admin: 10/20/23 21:06 Dose: 3 ml Documented By: MARK Labs 10/18/23 13:16 10/20/23 05:48 Labs: Laboratory Results - last 24 hr 10/20/23 10/20/23 10/20/23 08:35 11:05 20:15 POC Glucose 83 110 144 H 10/21/23 07:34 POC Glucose 100 Assessment and Plan (1) Cellulitis of scrotum: Status: Acute Plan This is a 83-year-old male with pertinent history of mood disorder, paroxysmal atrial fibrillation on Eliquis, chronic kidney disease stage 3, ywl-vvmvrtn-sbptijihj diabetes mellitus, chronic back pain on opioids who was sent to the emergency department for evaluation of scrotal discomfort. Scrotal cellulitis, no abscess on US -continue Ceftriasone + Vanco 10/17, Vanco stopped on 10/20 and Doxyc added -Uro is planning cystogram on sunday Staghorn calculus of the left kidney -Uro consult Avr-tadkqxs-lvjzhhilz diabetes mellitus, BS are normal - SSI Constipation with stercoral colitis -bowel regimen Paroxysmal atrial fibrillation, rate controlled, -On Eliquis Chronic back pain: On opioids Normocytic anemia: Hemoglobin above transfusion threshold Chronic urinary retention --has SP catheter DVT prophylaxis: Eliquis Full code Inpatient for cellulitis of the scrotum with high risk of raul's gangrene if not treated agresively with Iv Abx, and need further testing Quality Stroke Does the patient have a stroke diagnosis?: No VTE Prior VTE?: No VTE Risk Level:: Medical - moderate - high VTE Device Contraindication: Treatment Not Indicated VTE Drug Contraindication: N/A - Med Ordered
[2023-10-21] MEDS: Mirabegron 50 MG TAB.ER.24H PO (08:54)
[2023-10-21] MEDS: Escitalopram Oxalate 10 MG TABLET PO (08:54)
[2023-10-21] MEDS: oxyCODONE HCl Immed Release 5 MG TABLET 10 MG PO ×2 (08:54→21:12)
[2023-10-21] MEDS: Doxycycline Monohydrate 100 MG CAPSULE PO ×2 (08:54→21:12)
[2023-10-21] MEDS: 0.9 % Sodium Chloride Flush 3 ML SYRINGE IVFLUSH ×3 (08:54→21:12)
[2023-10-21] MEDS: Apixaban 2.5 MG TABLET PO ×2 (08:54→21:12)
--- NOTE | 2023-10-21 09:08 | PC.NURSE ---
Pt did not want to take any PO meds this AM. After spending multiple min with patient he agreed to take his meds, did not want vitamins.
--- NOTE | 2023-10-21 10:13 | PC.NURSE ---
Pt continues to state he wants to go back to the SNF. HCP called and educated about changing patients MOLST to align with patients wishes after he is discharged from [facility]
[2023-10-21 11:28] LABS: Glucose, Whole Blood 116 mg/dL (60-115)
[2023-10-21 14:07] VITALS: PULSE 77
[2023-10-21 15:07] VITALS: BP 107/60; PULSE 99; RESP 18; TEMP 36.1; O2SAT 93
[2023-10-21 16:12] LABS: Glucose, Whole Blood 130 mg/dL (60-115)
[2023-10-21 18:55] VITALS: BP 118/61; PULSE 100; RESP 18; TEMP 36.2; O2SAT 92
[2023-10-21] MEDS: calcium polycarbophiL TABLET 2 TAB PO (21:12)
[2023-10-21] MEDS: cefTRIAXone sodium 1 GM in 0.9 % Sodium Chloride 50 ML IV (23:00)
[2023-10-22 03:37] VITALS: BP 112/59; PULSE 93; RESP 18; TEMP 36.7; O2SAT 93
[2023-10-22 07:20] VITALS: BP 115/60; PULSE 90; RESP 18; TEMP 36.4; O2SAT 91
[2023-10-22 07:29] LABS: Glucose, Whole Blood 90 mg/dL (60-115)
[2023-10-22] MEDS: 0.9 % Sodium Chloride Flush 3 ML SYRINGE IVFLUSH ×2 (07:46→16:16)
--- NOTE | 2023-10-22 07:50 | PM.UROCN ---
History of Present Illness Consult details Consult date: 10/18/23 Narrative: CC: scrotal abcess Patient known to [facility] Neurogenic bladder managed with suprapubic tube Refer to discharge from scrotum Prior scrotal abscess Was suggest cystogram to confirm no fistula and IV antibiotics Review of Systems Constitutional: Constitutional: Reports as per HPI and Reports no additional constitutional complaints Cardiovascular: Cardiovascular: Reports as per HPI and Reports no additional cardiovascular complaints Respiratory: Respiratory: Reports as per HPI and Reports no additional respiratory complaints Gastrointestinal: Gastrointestinal: Reports as per HPI and Reports no additional gastrointestinal complaints Genitourinary: Genitourinary: Reports as per HPI Musculoskeletal: Musculoskeletal: Reports no additional musculoskeletal complaints and Reports as per HPI Neurologic: Reports system reviewed and no additional complaints, except as documented and Reports as per HPI [facility] Past Medical History Medical History (Updated 10/17/23 @ 23:36 by Alhaji Isaac MD) Cellulitis of scrotum PONV (postoperative nausea and vomiting) Cardiomyopathy COVID-19 vaccine series completed Depression Venous insufficiency Dysphagia snf resident Carbuncle of gluteal region C. difficile colitis Left bundle branch block Spinal stenosis Urine retention Osteoarthritis Benign prostate hyperplasia Hypertension CKD (chronic kidney disease) stage 3, GFR 30-59 ml/min CHF (congestive heart failure) Type 2 diabetes mellitus Atrial fibrillation Family History Family History Other No family history of cardiovascular disease Surgical History Surgical History History of incision and drainage History of ligation of vein H/O spinal fusion Social History Social History Household Members: Other Household Members Other:: [facility] Housing: [facility] Housing Other:: [place] [facility] Are you a primary certified caregiver to a significant other at home: No Do you presently have visiting nurse or other home services: Yes (SNF) Unable to assess alcohol history related to: Unknown Alcohol intake: never Comment: resting in bed, eyes closed Patient Tobacco Use Status: Tobacco use Unknown Smoked in Last 30 Days: No Use of substances other than those prescribed or required for medical reasons: No Currently Displaying Signs/Symptoms of Drug Intoxication Withdrawal: No Have you been hit, kicked, punched, or otherwise hurt by someone within the past year? If so, by whom?: No Do you feel safe in your current relationship?: No Current Relationship Is there a partner from a previous relationship who is making you feel unsafe now?: No Are you made to feel afraid or neglected: No Advance Directives: Yes Advance Directives on File: Yes Advance Directives Date on File: 10/17/23 Do you have thoughts of harming others: None Do you have a plan to hurt others: No Plan Recently lost weight without trying: No Eating poorly because of decreased appetite: No Nutrition Risks: No Nutritional Risk service: No Current occupational status: retired Meds Allergies Allergy/AdvReac Type Severity Reaction Status Date / Time codeine AdvReac Intermediate Vomiting Verified 08/01/23 13:54 morphine AdvReac Intermediate Vomiting Verified 08/01/23 13:54 Active Medications: Current Medications Acetaminophen (Acetaminophen 325 Mg Tablet) 650 mg PO Q6H PRN PRN Reason: Pain, Mild (Pain Scale 1-3) Last Admin: 10/21/23 04:06 Dose: 650 mg Apixaban (Apixaban 2.5 Mg Tablet) 2.5 mg PO BID [facility] Last Admin: 10/21/23 21:12 Dose: 2.5 mg Ascorbic Acid (Ascorbic Acid 500 Mg Tablet) 1,000 mg PO DAILY [facility] Last Admin: 10/21/23 08:58 Dose: Not Given Bisacodyl (Bisacodyl 10 Mg Supp.Rect) 10 mg [place] DAILY PRN PRN Reason: Constipation Calcium Polycarbophil (Calcium Polycarbophil Tablet) 2 tab PO BID [facility] Last Admin: 10/21/23 21:12 Dose: 2 tab Cyanocobalamin (Cyanocobalamin (Vitamin B-12) 1,000 Mcg Tablet) 1,000 mcg PO DAILY [facility] Last Admin: 10/21/23 08:58 Dose: Not Given Dextrose (Dextrose 50 % 25 Gm/50 Ml Syringe) 25 gm IVPUSH Q15M PRN; Protocol PRN Reason: per Hypoglycemia Standing Ord. Diphenhydramine HCl (Diphenhydramine Hcl 25 Mg Capsule) 25 mg PO Q6H PRN PRN Reason: PURITIS Last Admin: 10/21/23 04:07 Dose: 25 mg Doxycycline Monohydrate (Doxycycline Monohydrate 100 Mg Capsule) 100 mg PO BID [facility] Last Admin: 10/21/23 21:12 Dose: 100 mg Escitalopram Oxalate (Escitalopram Oxalate 10 Mg Tablet) 10 mg PO DAILY [facility] Last Admin: 10/21/23 08:54 Dose: 10 mg Fluticasone Propionate (Fluticasone Propionate Nasal 16 Gm [place]) 1 spray NOSTRIL-B DAILY [facility] Last Admin: 10/21/23 08:58 Dose: Not Given Glucose (Glucose Gel 15 Gm Gel..Gram.) 15 gm PO Q15M PRN; Protocol PRN Reason: per Hypoglycemia Standing Ord. Ceftriaxone Sodium 1 gm/ (Sodium Chloride) 50 mls @ 100 mls/hr IV Q24H [facility] Last Infusion: 10/21/23 23:35 Dose: Infused Insulin Human Lispro (Insulin Lispro 100 Unit/Ml 3 Ml Vial) 0 unit SUBCUT QIDACHS [facility]; Protocol Last Admin: 10/21/23 21:28 Dose: Not Given Lidocaine (Lidocaine 4 % Patch Adh..Patch) 1 patch TRANSDERMA DAILY [facility]; Protocol Last Admin: 10/21/23 08:59 Dose: Not Given Magnesium Hydroxide (Milk Of Magnesia 30 Ml Oral.Susp) 30 ml PO BEDTIME PRN PRN Reason: Constipation Melatonin (Melatonin 3 Mg Tablet) 6 mg PO BEDTIME PRN PRN Reason: Insomnia Mirabegron (Mirabegron 50 Mg Tab.Er.24h) 50 mg PO DAILY [facility] Last Admin: 10/21/23 08:54 Dose: 50 mg Multivitamins/Vitamin C (Multivitamin Tablet) 1 tab PO DAILY [facility] Last Admin: 10/21/23 08:59 Dose: Not Given Ondansetron HCl (Ondansetron Hcl 4 Mg/2 Ml Vial) 4 mg IVPUSH Q8H PRN PRN Reason: Nausea and Vomiting Oxycodone HCl (Oxycodone Hcl Immed Release 5 Mg Tablet) 10 mg PO BID [facility] Last Admin: 10/21/23 21:12 Dose: 10 mg Pharmacy Consult (Consult Rx Vancomycin Dosing) 1 each MISCELLANE DAILY PRN PRN Reason: Consult order Sodium Biphosphate/Sodium Phosphate (Sodium Phosphate,[place]-Dibasic 133 Ml En[place]) 118 ml [place] DAILY PRN PRN Reason: Constipation Sodium Chloride (0.9 % Sodium Chloride Flush 3 Ml Syringe) 3 ml IVFLUSH QSHIFT [facility] Last Admin: 10/21/23 21:12 Dose: 3 ml Home Medications Medication Instructions Recorded Confirmed Last Taken Type acetaminophen 325 mg tablet 650 mg PO Q4H PRN Pain 12/17/20 10/17/23 12/20/21 History bisacodyl 10 mg rectal suppository 10 mg [place] DAILY PRN Constipation 12/17/20 10/17/23 12/05/20 History cyanocobalamin (vitamin B-12) 1,000 mcg PO DAILY 12/17/20 10/17/23 10/17/22 History 1,000 mcg tablet escitalopram oxalate 10 mg tablet 10 mg PO DAILY 12/17/20 10/17/23 10/17/22 History fluticasone propionate 50 1 spray intranasal DAILY 12/17/20 10/17/23 10/17/22 History mcg/actuation nasal spray,suspension loperamide 2 mg tablet 2 mg PO Q3H PRN Diarrhea 12/17/20 10/17/23 12/10/20 History magnesium hydroxide 400 mg/5 mL 30 ml PO BEDTIME PRN Constipation 12/17/20 10/17/23 12/04/20 History oral suspension (Milk of Magnesia) multivitamin 1 tab PO DAILY 12/17/20 10/17/23 10/17/22 History oxycodone 5 mg tablet 10 mg PO BID 12/17/20 10/17/23 10/17/22 History oxycodone 5 mg tablet 10 mg PO Q6H PRN Pain 12/17/20 10/17/23 Unknown History sodium phosphates 19 gram-7 118 ml [place] DAILY PRN Constipation 12/17/20 10/17/23 Unknown History gram/118 mL enema (Fleet Enema) apixaban 2.5 mg tablet 2.5 mg PO BID 08/17/21 10/17/23 10/17/22 History diphenhydramine HCl 25 mg tablet 25 mg PO Q6H PRN PURITIS 12/20/21 10/17/23 12/19/21 History calcium polycarbophil 625 mg tablet 625 mg PO BID 10/17/23 10/17/23 10/17/22 History cephalexin 500 mg tablet 500 mg PO QID 10/17/23 10/17/23 10/17/22 History lidocaine 4 % topical patch 1 patch topical DAILY 10/17/23 10/17/23 10/17/22 History mirabegron 50 mg tablet,extended 50 mg PO DAILY 10/17/23 10/17/23 10/17/22 History release 24 hr ondansetron 4 mg disintegrating 4 mg PO Q6H PRN Nausea 10/17/23 10/17/23 Unknown History tablet Physical Exam Vital Signs: Vital Signs: Last Vital Signs Temp 97.5 F 10/22/23 07:20 Pulse 90 10/22/23 07:20 Resp 18 10/22/23 07:20 BP 115/60 10/22/23 07:20 Pulse Ox 91 L 10/22/23 07:20 O2 Del Method Room Air 10/22/23 07:20 BMI result Body Mass Index 30.5 Const: General: cooperative, healthy appearing, comfortable and no acute distress Orientation/consciousness: patient oriented x3 HEENT: Face and sinus: Yes normal facial exam Mouth: moist mucous membranes Neck: Neck: Yes normal visual inspection, Yes full ROM and Yes trachea midline Chest: Chest palpation & inspection: normal inspection of the chest Resp: Effort & Inspection: normal respiratory effort, able to speak in complete sentences and no respiratory distress GI: Inspection: Yes normal to inspection Back/Spine/Pelvis: Cervical Spine: normal cervical lordosis Thoracic/Lumbar Spine: thoracic and lumbar spine normal to inspection Skin: General skin exam: no rashes or lesions noted Neuro: General: patient oriented x3, tone normal and moves all extremities Extrem: General: Yes normal to inspection and Yes capillary refill normal Results Labs 10/18/23 13:16 10/20/23 05:48 Labs: Abnormal lab results 10/21/23 10/21/23 Range/Units 11:23 15:59 POC Glucose 116 H 130 H (60-115) mg/dL All other labs normal. Assessment and Plan (1) Cellulitis of scrotum: Status: Acute (2) Spastic neurogenic bladder: Status: Acute Plan Cystogram Antibiotics for cellulitis Procedures Date of Service Date of Service: 10/22/23
--- NOTE | 2023-10-22 07:51 | P.PNUR_ITS ---
Subjective Subjective Date of Service: 10/21/23 Interval history: Improvement of cellulitis with antibiotic therapy Will complete cystogram in Radiology Would recommend outpatient antibiotic therapy for cellulitis Scrotal ultrasound performed 1. Bilateral hydroceles. 2. No evidence of epididymitis. 3. No scrotal abscess is seen. 4. Bilateral hydroceles Continue with antibiotic therapy Physical Exam 2 Vital Signs: Vital Signs: Last Vital Signs Temp 97.5 F 10/22/23 07:20 Pulse 90 10/22/23 07:20 Resp 18 10/22/23 07:20 BP 115/60 10/22/23 07:20 Pulse Ox 91 L 10/22/23 07:20 O2 Del Method Room Air 10/22/23 07:20 BMI result Body Mass Index 30.5 Const: General: cooperative, healthy appearing, comfortable and no acute distress Orientation/consciousness: patient oriented x3 HEENT: Face and sinus: Yes normal facial exam Mouth: moist mucous membranes Neck: Neck: Yes normal visual inspection, Yes full ROM and Yes trachea midline Chest: Chest palpation & inspection: normal inspection of the chest Resp: Effort & Inspection: normal respiratory effort, able to speak in complete sentences and no respiratory distress GI: Inspection: Yes normal to inspection Back/Spine/Pelvis: Cervical Spine: normal cervical lordosis Thoracic/Lumbar Spine: thoracic and lumbar spine normal to inspection Skin: General skin exam: no rashes or lesions noted Neuro: General: patient oriented x3, tone normal and moves all extremities Extrem: General: Yes normal to inspection and Yes capillary refill normal Urology Results Labs 10/18/23 13:16 10/20/23 05:48 Labs: Laboratory Results - last 24 hr 10/21/23 10/21/23 10/21/23 07:34 11:23 15:59 POC Glucose 100 116 H 130 H 10/22/23 07:23 POC Glucose 90 Progress Note: A&P Assessment and plan (1) Cellulitis of scrotum: Status: Acute (2) Spastic neurogenic bladder: Status: Acute Plan Continue with antibiotic therapy To be reviewed at [facility] Time Spent With Patient Time: Total time managing care of this patient today ____ minutes. Progress Note: Quality Stroke Does the patient have a stroke diagnosis?: No
[2023-10-22] MEDS: Fluticasone Propionate Nasal 16 GM SPRAY 1 SPRAY NOSTRIL-B (07:53)
[2023-10-22] MEDS: Doxycycline Monohydrate 100 MG CAPSULE PO (09:18)
[2023-10-22] MEDS: Escitalopram Oxalate 10 MG TABLET PO (09:18)
[2023-10-22] MEDS: calcium polycarbophiL TABLET 2 TAB PO (09:18)
[2023-10-22] MEDS: Mirabegron 50 MG TAB.ER.24H PO (09:18)
[2023-10-22] MEDS: Multivitamin TABLET 1 TAB PO (09:18)
[2023-10-22] MEDS: Apixaban 2.5 MG TABLET PO (09:18)
[2023-10-22] MEDS: oxyCODONE HCl Immed Release 5 MG TABLET 10 MG PO (09:19)
[2023-10-22] MEDS: Cyanocobalamin (Vitamin B-12) 1,000 MCG TABLET 1000 MCG PO (09:19)
[2023-10-22] MEDS: Ascorbic Acid 500 MG TABLET 1000 MG PO (09:19)
[2023-10-22] MEDS: Lidocaine 4 % Patch ADH..PATCH 1 PATCH TRANSDERMA (09:25)
--- NOTE | 2023-10-22 12:42 | P.PNIM_ITS ---
Subjective Subjective Date of Service: 10/22/23 Interval History: f/u on scrotal cellulitis, has no new complaint, he wants to go back [facility], Physical Exam 2 Vital Signs: Vital Signs: Last Vital Signs Temp 97.5 F 10/22/23 07:20 Pulse 90 10/22/23 07:20 Resp 18 10/22/23 07:20 BP 115/60 10/22/23 07:20 Pulse Ox 91 L 10/22/23 07:20 O2 Del Method Room Air 10/22/23 07:20 BMI result Body Mass Index 30.5 Const: Other: General: AO X 3, no acute distress Resp: CTA bilateral CVS: S1,S2,RRR GI: +BS, NT, no distention Skin: No rash : suprapubic cath, erythema with some tendernes of scrotum, no drainage Neuro: motor grossly intact Psych: appropriate affect Objective Data Active Medications Acetaminophen (Acetaminophen 325 Mg Tablet) 650 mg PO Q6H PRN PRN Reason: Pain, Mild (Pain Scale 1-3) Last Admin: 10/21/23 04:06 Dose: 650 mg Documented By: MARK Apixaban (Apixaban 2.5 Mg Tablet) 2.5 mg PO BID [facility] Last Admin: 10/22/23 09:18 Dose: 2.5 mg Documented By: CARLIE Ascorbic Acid (Ascorbic Acid 500 Mg Tablet) 1,000 mg PO DAILY [facility] Last Admin: 10/22/23 09:19 Dose: 1,000 mg Documented By: CARLIE Bisacodyl (Bisacodyl 10 Mg Supp.Rect) 10 mg MD DAILY PRN PRN Reason: Constipation Calcium Polycarbophil (Calcium Polycarbophil Tablet) 2 tab PO BID [facility] Last Admin: 10/22/23 09:18 Dose: 2 tab Documented By: CARLIE Cyanocobalamin (Cyanocobalamin (Vitamin B-12) 1,000 Mcg Tablet) 1,000 mcg PO DAILY [facility] Last Admin: 10/22/23 09:19 Dose: 1,000 mcg Documented By: CARLIE Dextrose (Dextrose 50 % 25 Gm/50 Ml Syringe) 25 gm IVPUSH Q15M PRN; Protocol PRN Reason: per Hypoglycemia Standing Ord. Diphenhydramine HCl (Diphenhydramine Hcl 25 Mg Capsule) 25 mg PO Q6H PRN PRN Reason: PURITIS Last Admin: 10/21/23 04:07 Dose: 25 mg Documented By: AMRK Doxycycline Monohydrate (Doxycycline Monohydrate 100 Mg Capsule) 100 mg PO BID [facility] Last Admin: 10/22/23 09:18 Dose: 100 mg Documented By: CARLIE Escitalopram Oxalate (Escitalopram Oxalate 10 Mg Tablet) 10 mg PO DAILY [facility] Last Admin: 10/22/23 09:18 Dose: 10 mg Documented By: CARLIE Fluticasone Propionate (Fluticasone Propionate Nasal 16 Gm [place]) 1 spray NOSTRIL-B DAILY [facility] Last Admin: 10/22/23 07:53 Dose: 1 spray Documented By: CARLIE Glucose (Glucose Gel 15 Gm Gel..Gram.) 15 gm PO Q15M PRN; Protocol PRN Reason: per Hypoglycemia Standing Ord. Ceftriaxone Sodium 1 gm/ (Sodium Chloride) 50 mls @ 100 mls/hr IV Q24H [facility] Last Infusion: 10/21/23 23:35 Dose: Infused Documented By: MARIEL Insulin Human Lispro (Insulin Lispro 100 Unit/Ml 3 Ml Vial) 0 unit SUBCUT QIDACHS [facility]; Protocol Last Admin: 10/22/23 11:53 Dose: Not Given Documented By: CARLIE Non-Admin Reason: PT. REFUSED BLOOD SUGAR CHECK Lidocaine (Lidocaine 4 % Patch Adh..Patch) 1 patch TRANSDERMA DAILY [facility]; Protocol Last Admin: 10/22/23 09:25 Dose: 1 patch Documented By: CARLIE Magnesium Hydroxide (Milk Of Magnesia 30 Ml Oral.Susp) 30 ml PO BEDTIME PRN PRN Reason: Constipation Melatonin (Melatonin 3 Mg Tablet) 6 mg PO BEDTIME PRN PRN Reason: Insomnia Mirabegron (Mirabegron 50 Mg Tab.Er.24h) 50 mg PO DAILY [facility] Last Admin: 10/22/23 09:18 Dose: 50 mg Documented By: CARLIE Multivitamins/Vitamin C (Multivitamin Tablet) 1 tab PO DAILY [facility] Last Admin: 10/22/23 09:18 Dose: 1 tab Documented By: CARLIE Ondansetron HCl (Ondansetron Hcl 4 Mg/2 Ml Vial) 4 mg IVPUSH Q8H PRN PRN Reason: Nausea and Vomiting Oxycodone HCl (Oxycodone Hcl Immed Release 5 Mg Tablet) 10 mg PO BID [facility] Last Admin: 10/22/23 09:19 Dose: 10 mg Documented By: CARLIE Pharmacy Consult (Consult Rx Vancomycin Dosing) 1 each MISCELLANE DAILY PRN PRN Reason: Consult order Sodium Biphosphate/Sodium Phosphate (Sodium Phosphate,[place]-Dibasic 133 Ml Enema) 118 ml MD DAILY PRN PRN Reason: Constipation Sodium Chloride (0.9 % Sodium Chloride Flush 3 Ml Syringe) 3 ml IVFLUSH QSHIFT [facility] Last Admin: 10/22/23 07:46 Dose: 3 ml Documented By: CARLIE Labs 10/18/23 13:16 10/20/23 05:48 Labs: Laboratory Results - last 24 hr 10/21/23 10/22/23 15:59 07:23 POC Glucose 130 H 90 Assessment and Plan (1) Cellulitis of scrotum: Status: Acute Plan This is a 83-year-old male with pertinent history of mood disorder, paroxysmal atrial fibrillation on Eliquis, chronic kidney disease stage 3, qui-iakoyhb-nvgrrrwwh diabetes mellitus, chronic back pain on opioids who was sent to the emergency department for evaluation of scrotal discomfort. Scrotal cellulitis, no abscess on US -continue Ceftriasone + Vanco 10/17, Vanco stopped on 10/20 and Doxyc added, Augmentin + Doxy at dischare -for Cystogram today Staghorn calculus of the left kidney -Uro consult Wwy-rfvcrbk-xqlwvqeur diabetes mellitus, BS are normal - SSI Constipation with stercoral colitis -bowel regimen Paroxysmal atrial fibrillation, rate controlled, -On Eliquis Chronic back pain: On opioids Normocytic anemia: Hemoglobin above transfusion threshold Chronic urinary retention --has SP catheter DVT prophylaxis: Eliquis Full code Inpatient for cellulitis of the scrotum with high risk of raul's gangrene if not treated agresively with Iv Abx, and need further testing Quality Stroke Does the patient have a stroke diagnosis?: No VTE Prior VTE?: No VTE Risk Level:: Medical - moderate - high VTE Device Contraindication: Treatment Not Indicated VTE Drug Contraindication: N/A - Med Ordered
--- NOTE | 2023-10-22 14:21 | P.DS_ITS ---
DS: Providers Provider Date of Service: 10/22/23 Date of admission: 10/17/23 21:43 Primary care physician: Shon Brown MD Consults: 10/17/23 22:05 Consult to Urology Routine Consulting Provider: Mateus Bradshaw Reason for consultation: left staghorn calculus DS: Diagnosis Discharge Diagnosis (1) Cellulitis of scrotum: Status: Acute DS: Summary Hospital Course Hospital Course: admission hpi Chief Complaint: SCROTAL PAIN This is a 83-year-old male with pertinent history of mood disorder, paroxysmal atrial fibrillation on Eliquis, chronic kidney disease stage 3, kfl-kchbfdo-cdaejzaqp diabetes mellitus, chronic back pain on opioids who was sent to the emergency department for evaluation of scrotal discomfort. Patient states it started on the day of presentation. He was admitted 2 years ago for similar presentation. Patient states that he was told by the staff at [facility] that was purulent drainage from his scrotum and that is why he was sent to the ER. Endorses scrotal discomfort and tenderness. No fever or chills. No chest discomfort, palpitations, shortness of breath, abdominal pain, nausea, vomiting, changes in urinary or bowel habits.In the emergency department, purulent drainage noted as per ER provider from the scrotum. Imaging with thickening of the scrotal wall. Hospital course: The patient was admitted for scrotal swelling. The ultrasound showed: Bilateral hydroceles.No evidence of epididymitis.No scrotal abscess is seen.Bilateral hydroceles. He was admitted for scrotal cellulitis and initiated on IV antibiotics with Ceftriaxone + Vancomycin from 10/17. Vancomycin was stopped on 10/20, and Doxycycline was added. He was evaluated by urologist Dr. Lopez, who recommended antibiotic therapy on an outpatient basis following a Cystogram, and will follow up on an outpatient basis with Dr. Lopez. He will be discharged with Augmentin and Doxycycline for a total of 14 days of antibiotics. Staghorn calculus of the left kidney--to follow up with Dr. Bradshaw Oxl-kbcbzpr-higzotwxh diabetes mellitus, BS are normal - SSI Constipation with stercoral colitis -bowel regimen Paroxysmal atrial fibrillation, rate controlled, continue n Eliquis Chronic back pain: On opioids Normocytic anemia: Hemoglobin above transfusion threshold Chronic urinary retention --has SP catheter DVT prophylaxis: Eliquis Time Attestation Discharge coordination time: Greater than 30 minutes Quality: Safe Use of Opioids Does Pt have an Active Cancer Diagnosis on the Problem List?: No Quality: Stroke Does the patient have a stroke diagnosis?: No Physical Exam Vital Signs: Vital Signs: Last Vital Signs Temp 97.5 F 10/22/23 07:20 Pulse 90 10/22/23 07:20 Resp 18 10/22/23 07:20 BP 115/60 10/22/23 07:20 Pulse Ox 91 L 10/22/23 07:20 O2 Del Method Room Air 10/22/23 07:20 BMI result Body Mass Index 30.5 DS: Data Data Completed and Pending Completed studies during hospitalization [Text1]: Procedures Drainage of Inguinal Skin, External Approach (12/17/20) Labs on day of discharge: Laboratory Results - last 24 hr 10/21/23 10/22/23 15:59 07:23 POC Glucose 130 H 90 Preliminary micro results at discharge 10/17/23 17:20 Blood Culture - Preliminary Blood - Venous No growth after 48 hours. 10/17/23 17:02 Blood Culture - Preliminary Blood - Venous No growth after 48 hours. Discharge Plan Discharge Anticipated Discharge Date/Time: 10/22/23 14:23 Patient Disposition: Xfer SNF Discharge Diagnosis: Scrotal cellulitis Referrals: Mateus Bradshaw MD [Physician] - 1 Week Shon Brown MD [Primary Care Provider] - 1 Week Discharge Medications: New doxycycline hyclate 100 mg tablet 100 mg PO BID 8 Days Qty: 16 0RF amoxicillin-pot clavulanate [Augmentin] 500-125 mg tablet 1 tab PO BID 8 Days Qty: 16 0RF Continued multivitamin Tablet 1 tab PO DAILY cyanocobalamin (vitamin B-12) 1,000 mcg Tablet 1,000 mcg PO DAILY fluticasone propionate 50 mcg/actuation [place],Suspension 1 spray INTRANASAL DAILY oxycodone 5 mg Tablet 10 mg PO BID oxycodone 5 mg Tablet 10 mg PO Q6H PRN (Reason: Pain) escitalopram oxalate 10 mg Tablet 10 mg PO DAILY acetaminophen 325 mg Tablet 650 mg PO Q4H PRN (Reason: Pain) loperamide 2 mg Tablet 2 mg PO Q3H PRN (Reason: Diarrhea) magnesium hydroxide [Milk of Magnesia] 400 mg/5 mL Suspension 30 ml PO BEDTIME PRN (Reason: Constipation) bisacodyl 10 mg Suppository 10 mg OK DAILY PRN (Reason: Constipation) Rx Instructions: IF NO BOWEL MOVEMENT IN THREE DAYS OR 9 SHIFTS [place] Enema 19-7 gram/118 mL Enema 118 ml OK DAILY PRN (Reason: Constipation) apixaban 2.5 mg Tablet 2.5 mg PO BID diphenhydramine HCl 25 mg Tablet 25 mg PO Q6H PRN (Reason: PURITIS) lidocaine 4 % Adhesive Patch,Medicated 1 patch TOPICAL DAILY calcium polycarbophil 625 mg Tablet 625 mg PO BID ondansetron 4 mg Tablet,Disintegrating 4 mg PO Q6H PRN (Reason: Nausea) mirabegron 50 mg Tablet Extended Release 24 Hr 50 mg PO DAILY ascorbic acid (vitamin C) 1,000 mg tablet 1 g PO DAILY 90 Days Qty: 90 1RF methenamine hippurate 1 gram tablet 1 g PO DAILY 90 Days Qty: 90 1RF Discontinued cephalexin 500 mg Tablet 500 mg PO QID Rx Instructions: X 7 DAYS, LAST DOSE 10/18 @ 0300 Discharge Orders: Discharge Order (Routine); Ordered 10/22/23 Ordered By: Lobo Yeager Diet: Diabetic diet Activity on Discharge: As tolerated Stand Alone Forms: Patient Portal Discharge page Care Plan Goals: Full recovery from scrotal cellulitis Health Concerns: scrotal cellulitis Plan of Treatment: take Doxycline and Augmentin as recommended and follow up with your Doctor in a week Follow up urology Assessment: see above
[2023-10-22 15:05] VITALS: BP 112/60; PULSE 95; RESP 16; TEMP 36.8; O2SAT 93
--- NOTE | 2023-10-22 16:19 | MHC.CM.PN ---
PT CLEARED TO RETURN TO [facility] TODAY VIA BLS PT AWARE AND ANXIOUS TO DC CM SPOKE TO STEFF AT [facility], SHE IS AWARE OF PTS NEW MEDS AND WILL HAVE THEM ON HAND [facility]SPORT BOOKED FOR 1700 HOURS
--- NOTE | 2023-10-22 16:20 | MHC.CM.PN ---
DP: PT HAS BEEN MEDICALLY CLEARED FOR DC BACK TO [facility] A[facility]. RN UPDATED. BLS TRANSPORT BOOKED FOR 5 PM VIA [employer]. HCP NOTIFIED OF RETURN
[2023-10-22 16:22] LABS: Glucose, Whole Blood 118 mg/dL (60-115)
== END 2023-10-22 18:31 | disposition skilled nursing facility (03) | DRG 728 ==
LOC: HO.ED 16:16 → HO.EDOVER 22:11 → HO.S3 10-18 14:12
PROVIDERS: Admitting Provider Student in an Organized Health Care Education/Training Program; Emergency Provider Internal Medicine; PCP Internal Medicine Medical Oncology; Visit Provider Internal Medicine
DX: N49.2 Inflammatory disorders of scrotum (principal); N43.3 Hydrocele, unspecified; I12.9 Hypertensive chronic kidney disease with stage 1 through stage 4 chronic kidney disease, or unspecified chronic kidney disease; N18.30 Chronic kidney disease, stage 3 unspecified; F39 Unspecified mood [affective] disorder; E11.22 Type 2 diabetes mellitus with diabetic chronic kidney disease; R33.9 Retention of urine, unspecified; K59.00 Constipation, unspecified; N31.9 Neuromuscular dysfunction of bladder, unspecified; K52.89 Other specified noninfective gastroenteritis and colitis; D63.1 Anemia in chronic kidney disease; Z96.0 Presence of urogenital implants; N20.0 Calculus of kidney; M54.9 Dorsalgia, unspecified; G89.29 Other chronic pain; Z98.1 Arthrodesis status; Z79.01 Long term (current) use of anticoagulants; Z79.51 Long term (current) use of inhaled steroids; Z79.899 Other long term (current) drug therapy
CPT/HCPCS: 36415; 51600; 74177; 74455; 76870; 80048; 80053; 82565; 82947; 83036; 83605; 85025; 87040; 87070; 87205; 99285; J0696; J2543; J3370; J3371; Q9967

== ENCOUNTER → 2023-10-17 15:58 | Outpatient (BNV) | payer MEDICARE, SELFPAY | PROVIDERS: Emergency Provider Internal Medicine; PCP Internal Medicine Medical Oncology; Visit Provider Student in an Organized Health Care Education/Training Program | DX: N49.2 Inflammatory disorders of scrotum (principal) | CPT/HCPCS: 99222; 99232; 99239 ==

== ENCOUNTER 2023-10-17 20:46 | Outpatient (REF) | payer MEDICARE, SELFPAY | END 2023-10-17 20:47 | disposition home or self-care (01) | LOC: HO.HSH3E 20:46 | PROVIDERS: Visit Provider Internal Medicine Medical Oncology | DX: Z13.89 Encounter for screening for other disorder (principal) ==

== ENCOUNTER 2023-10-17 21:43 | Outpatient (BNV) | payer MEDICARE, SELFPAY | END 2023-10-21 13:10 | PROVIDERS: Admitting Provider Student in an Organized Health Care Education/Training Program; Emergency Provider Internal Medicine; PCP Internal Medicine Medical Oncology; Visit Provider Radiology Diagnostic Radiology | DX: Z93.51 Cutaneous-vesicostomy status (principal) | CPT/HCPCS: 74455 ==

== ENCOUNTER → 2023-10-17 21:43 | Outpatient (BNV) | payer MEDICARE, SELFPAY | PROVIDERS: Admitting Provider Student in an Organized Health Care Education/Training Program; Emergency Provider Internal Medicine; PCP Internal Medicine Medical Oncology; Visit Provider Urology | DX: N49.2 Inflammatory disorders of scrotum (principal); N31.8 Other neuromuscular dysfunction of bladder | CPT/HCPCS: 99222; 99232 ==

== ENCOUNTER 2023-11-08 12:34 | Outpatient (REF) | payer MEDICARE, SELFPAY | END 2023-11-08 12:35 | disposition home or self-care (01) | LOC: HO.HSH3E 12:34 | PROVIDERS: Visit Provider Internal Medicine Medical Oncology | DX: Z13.89 Encounter for screening for other disorder (principal) | CPT/HCPCS: 87070; 87077; 87186; 87205 ==

== ENCOUNTER 2023-11-09 12:13 | Inpatient (IN) | payer MEDICARE, SELFPAY ==
--- NOTE | ~2023-11-09 | US_ITS ---
EXAMINATION: US SCROTUM CLINICAL INFORMATION: Question abscess formation/epididymitis/cellulitis of scrotum.. COMPARISON: None available. TECHNIQUE: A sonogram of the scrotum was performed assessing martinez-scale appearance and color Doppler flow. Spectral Doppler analysis of the arterial and venous flow were performed in the testes bilaterally. FINDINGS: RIGHT: Right testicle measures 3.2 x 2.4 x 2.4 cm, volume 9.5 mL. No focal testicular parenchymal lesions are visualized. Spectral Doppler analysis of the arterial and venous flow is normal in the right testis. Right epididymal head is normal in size. There is moderate to large hydrocele. No varicocele is seen. Right epididymal Doppler flow is normal. LEFT: Left testicle measures 2.7 x 2 0.0, 2.0 cm, volume 2.8 mL. No focal testicular parenchymal lesions are visualized. Spectral Doppler analysis of the arterial and venous flow is normal in the left testis. Left epididymal head is normal in size. There is a large anechoic cyst with mobile echogenic debris likely spermatocele. There is moderate left. No varicocele is seen. Left epididymal Doppler flow is normal. There is bilateral significant tenderness and skin thickening/edema measuring 0.9 cm on the right hemiscrotum and 0.7 cm and left hemiscrotum. US/US scrotum IMPRESSION: 1. Bilateral moderate to large hydroceles. 2. Large left spermatocele with echogenic debris. 3. Bilateral scrotal wall thickening 4. Both testes are normal with normal Doppler exam.
[2023-11-09 12:30] VITALS: BP 112/61; BP 134/72; PULSE 78; PULSE 88; RESP 14; TEMP 37.1; O2SAT 98; BMI 34.4
--- NOTE | 2023-11-09 13:11 | ED_ITS ---
HPI - Male Genitourinary General Chief complaint: Urogenital-Male Stated complaint: ABD PAIN HIGH TEMP Time Seen by Provider: 11/09/23 13:03 Source: patient and EMS Mode of arrival: EMS Limitations: no limitations History of Present Illness HPI Narrative: Patient comes to the emergency room complaining of scrotal erythema swelling and pain. Patient has history of recurrent scrotal cellulitis. Patient was discharged from this facility on October 22. Patient was treated in the hospital with ceftriaxone and vancomycin for several days, then discharge with Augmentin and doxycycline for 14 days. Patient has stopped taking antibiotics 2 days ago. Yesterday, Dr. Brown visited the patient at the [facility], he was started on Augmentin and doxycycline. However, the skin is not improving. Related Data Home Medications Medication Instructions Recorded Confirmed acetaminophen 325 mg tablet 650 mg PO Q4H PRN Pain 12/17/20 10/17/23 bisacodyl 10 mg rectal suppository 10 mg [place] DAILY PRN Constipation 12/17/20 10/17/23 cyanocobalamin (vitamin B-12) 1,000 mcg PO DAILY 12/17/20 10/17/23 1,000 mcg tablet escitalopram oxalate 10 mg tablet 10 mg PO DAILY 12/17/20 10/17/23 fluticasone propionate 50 1 spray intranasal DAILY 12/17/20 10/17/23 mcg/actuation nasal spray,suspension loperamide 2 mg tablet 2 mg PO Q3H PRN Diarrhea 12/17/20 10/17/23 magnesium hydroxide 400 mg/5 mL 30 ml PO BEDTIME PRN Constipation 12/17/20 10/17/23 oral suspension (Milk of Magnesia) multivitamin 1 tab PO DAILY 12/17/20 10/17/23 oxycodone 5 mg tablet 10 mg PO BID 12/17/20 10/17/23 oxycodone 5 mg tablet 10 mg PO Q6H PRN Pain 12/17/20 10/17/23 sodium phosphates 19 gram-7 118 ml [place] DAILY PRN Constipation 12/17/20 10/17/23 gram/118 mL enema (Fleet Enema) apixaban 2.5 mg tablet 2.5 mg PO BID 08/17/21 10/17/23 diphenhydramine HCl 25 mg tablet 25 mg PO Q6H PRN PURITIS 12/20/21 10/17/23 calcium polycarbophil 625 mg tablet 625 mg PO BID 10/17/23 10/17/23 lidocaine 4 % topical patch 1 patch topical DAILY 10/17/23 10/17/23 mirabegron 50 mg tablet,extended 50 mg PO DAILY 10/17/23 10/17/23 release 24 hr ondansetron 4 mg disintegrating 4 mg PO Q6H PRN Nausea 10/17/23 10/17/23 tablet Previous Rx's Medication Instructions Recorded ascorbic acid (vitamin C) 1,000 mg 1 g PO DAILY 90 days #90 tabs 09/22/21 tablet methenamine hippurate 1 gram tablet 1 g PO DAILY 90 days #90 tabs 09/22/21 amoxicillin 500 mg-potassium 1 tab PO BID 8 days #16 tabs 10/22/23 clavulanate 125 mg tablet (Augmentin) doxycycline hyclate 100 mg tablet 100 mg PO BID 8 days #16 tabs 10/22/23 Allergies Allergy/AdvReac Type Severity Reaction Status Date / Time codeine AdvReac Intermediate Vomiting Verified 08/01/23 13:54 morphine AdvReac Intermediate Vomiting Verified 08/01/23 13:54 Review of Systems 2 Review of Systems: Constitutional : No Weight loss, No Fever, No Chills, No Night Sweats, No Fatigue, No Malaise ENT/Mouth : No Hearing loss, No Ear Pain, No Nasal Congestion, No Sinus Pain, No Hoarseness, No sore throat, No Rhinorrhea, No Swallowing Difficulty Eyes: No Eye Pain, No Swelling, No Redness, No Foreign Body, No Discharge, No Vision Changes Cardiovascular : No Chest Pain, No SOB, No Dyspnea on Exertion, No Orthopnea, No Edema, No Palpitations Respiratory : No Cough, No Sputum, No Wheezing, No Smoke Exposure, No Dyspnea Gastrointestinal : No Nausea, No Vomiting, No Diarrhea, No Constipation, No abdominal Pain, No Hematochezia, No Melena Genitourinary : no irregular bleeding, No Dysuria, No Urinary Frequency, No Hematuria, No Urinary Incontinence, No Urgency, No Flank Pain, No Urinary Flow Changes, No Hesitancy Musculoskeletal : No joint pain, No Myalgias, No Joint Swelling Skin : Complaining of acute on chronic cellulitis in the scrotum Neuro : No Weakness, No Numbness, No Paresthesias, No Loss of Consciousness, No Dizziness, No Headache Psych : No Anxiety/Panic, No Depression, No SI/HI/AH/VH, No Social Issues, Heme/Lymph: No Bruising, No Bleeding,No Lymphadenopathy Endocrine : No Polyuria, No Polydipsia, No Temperature Intolerance [facility] Past Medical History Medical History Cellulitis of scrotum PONV (postoperative nausea and vomiting) Cardiomyopathy COVID-19 vaccine series completed Depression Venous insufficiency Dysphagia halfway resident Carbuncle of gluteal region C. 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 Housing: Halfway Housing Other:: [employer] Home resident Are you a primary health care / medical job titles to a significant other at home: No Do you presently have visiting nurse or other home services: Yes (SNF) Unable to assess alcohol history related to: Unknown Alcohol intake: never Comment: resting in bed, eyes closed Patient Tobacco Use Status: Tobacco use Unknown Smoked in Last 30 Days: No Use of substances other than those prescribed or required for medical reasons: No Advance Directives: Yes Advance Directives on File: Yes Advance Directives Date on File: 10/17/23 service: No Current occupational status: retired Physical Exam 2 Vital Signs: Vital Signs: Last Vital Signs Temp 98.2 F 11/09/23 13:57 Pulse 100 11/09/23 13:57 Resp 18 11/09/23 13:57 BP 106/65 11/09/23 13:57 Pulse Ox 95 11/09/23 13:57 O2 Del Method Room Air 11/09/23 13:57 BMI result Body Mass Index 34.4 Const: Other: Appearance: Alert. Oriented X3. No acute distress. Eyes: Pupils equal, round and reactive to light. ENT: Pharynx normal. Neck: Normal inspection. Neck supple. No lymph nodes noted. No crepitus CVS: Normal heart rate and rhythm. Pulses normal. Normal S1 and S2 Respiratory: No respiratory distress. Breath sounds normal. No Wheezing. No rales Abdomen: Soft and nontender. No rigidity. No distention. : Penis and scrotum swollen, the scrotum skin is erythematous, very tender to touch, does not seem like a fungal infection more likely cellulitis Skin: Skin warm and dry. See above Extremities: No lower extremity edema. No Lacerations. No Rash Neuro: Oriented X 3. No motor deficit. No sensory deficit. Moving all extremities. No slurred speech. CN 2 through 12 grossly intact Psych: calm, cooperative, normal affect Course Course Course Narrative: -all of patient's labs pending -vital signs stable, no fever, no hypotension or tachycardia, sepsis not suspected Medications Administered Generic Name Dose Route Start Last Admin Trade Name Freq PRN Reason Stop Dose Admin Vancomycin HCl 2,000 mg in 500 mls @ 250 mls/hr 11/09/23 13:19 11/09/23 15:07 Vancomycin/Ns IV 11/09/23 15:18 250 mls/hr ONCE ONE Administration Discontinued Medications Generic Name Dose Route Start Last Admin Trade Name Freq PRN Reason Stop Dose Admin Ceftriaxone Sodium 1 gm/ 50 mls @ 100 mls/hr 11/09/23 13:19 11/09/23 15:07 Sodium Chloride IV 11/09/23 13:48 Infused ONCE ONE Infusion Sodium Chloride 1,000 mls @ 999 mls/hr 11/09/23 13:20 11/09/23 14:38 Ns IVCONT 11/09/23 14:20 999 mls/hr .Q1H1M ONE Administration -vitals stable, sepsis not suspected -patient failed outpatient treatment -patient receiving IV fluids, ceftriaxone IV, vancomycin, playing for admission -reviewing patient's medical records and imaging from his previous admission on 10/17/2023, an ultrasound of the scrotum was done showing bilateral hydrocele without epididymitis or scrotal abscess Medical Decision Making Medical Decision Making MDM Narrative: -patient likely has cellulitis, being covered with IV fluids, ceftriaxone and vancomycin, sepsis not suspected -patient also likely has a UTI, the urine looks cloudy. Reviewing patient's medical records from prior urinalysis, the bacteria in the urine is susceptible to ceftriaxone, which he already received for cellulitis -my interpretation of labs: White blood cell count slightly elevated, creatinine slightly elevated, positive UTI Differential Diagnosis Differential Diagnoses: The differential diagnosis associated with the presentation includes (Cellulitis, contact dermatitis, candidiasis, hydrocele) Admission/Observation Consideration of admission/observation: Escalation of care including admission/observation considered (Patient failed outpatient treatment) Consult Healthcare Provider Management of the patient was discussed with: Hospitalist Lab Data MDM Lab Attestation statement: I reviewed the patient's lab results. 11/09/23 13:54 11/09/23 13:54 Labs: Lab Results 11/09/23 11/09/23 11/09/23 Range/Units 13:47 13:54 14:45 WBC 11.9 H (4.8-10.8) X10*3/uL RBC 3.22 L (4.60-5.80) X10*6/uL Hgb 9.7 L (14.0-18.0) g/dl Hct 31.1 L (42.0-52.0) % MCV 96.6 (80.0-98.0) fL MCH 30.1 (27.0-33.0) pg MCHC 31.2 (31.0-36.0) g/dl RDW 17.1 H (11.0-16.0) % Plt Count 200 (160-400) X10*3/uL MPV 9.5 (9.4-12.4) fL Immature Gran % (Auto) 0.5 H (0.0-0.4) % Neut % (Auto) 84.0 H (45-73) % Lymph % (Auto) 5.5 L (20-40) % [place] % (Auto) 9.6 (2-11) % Eos % (Auto) 0.1 (0-4) % Baso % (Auto) 0.3 (0-2) % Lymph # (Auto) 0.7 L (1.2-4.9) X10*3/uL [place] # (Auto) 1.1 (0.1-1.2) X10*3/uL Eos # (Auto) 0.0 (0.0-0.4) X10*3/uL Baso # (Auto) 0.0 (0.0-0.2) X10*3/uL Abs Immat Gran (auto) 0.06 H (0.00-0.03) X10*3/uL Absolute Neuts (auto) 10.0 H (2.0-8.3) x10*3/uL Absolute Nucleated RBC 0.000 (0.0-0.012) X10*3/uL Nucleated RBC % (auto) 0.0 (0.0-0.2) /100WBC Sodium 138 (135-145) mmol/L Potassium 4.1 (3.3-5.1) mmol/L Chloride 103 (96-108) mmol/L Carbon Dioxide 28 (22-29) mmol/L Anion Gap 11 L (12-20) BUN 23 H (9-16) mg/dL Creatinine 1.43 H (0.5-1.4) mg/dL Estim Creat Clear Calc 49.4 Estimated GFR 47 Random Glucose 130 H (60-115) mg/dL Lactic Acid 1.2 (0.5-2.0) mmol/L Calcium 9.1 D (8.4-10.2) mg/dL Total Bilirubin 0.5 (0.0-1.0) mg/dL Direct Bilirubin 0.2 (0.0-0.5) mg/dL AST 13 (5-37) U/L ALT 7 (0-40) U/L Alkaline Phosphatase 59 (39-117) U/L Total Protein 7.2 (6.5-8.0) g/dL Albumin 3.2 L (3.5-5.0) g/dL Urine Color Dark Yellow Urine Appearance Turbid Urine pH 6.0 (5.0-9.0) Ur Specific [place] 1.020 (1.005-1.025) Urine Protein 100 (2+) H (Neg-Trace) mg/dL Urine Glucose (UA) Negative (Negative) mg/dL Urine Ketones Negative (Negative) mg/dL Urine Blood Large (3+) H (Negative) Urine Nitrite Positive H (Negative) Ur Leukocyte Esterase Large (3+) H (Negative) External Record Review External record reviewed: Inpatient record Critical Care Time Critical Care Time Critical Care Time: Yes Total Critical Care Time: 60 Attestation: I have personally provided critical care time. Time includes review of lab data, radiology results, discussion with consultants, and monitoring for potential decompensation. Intervention performed as documented. Discharge Plan Discharge Clinical Impression: Cellulitis of scrotum, Acute UTI Patient Disposition: Admitted As Inpatient Prescriptions: No Action multivitamin Tablet 1 tab PO DAILY cyanocobalamin (vitamin B-12) 1,000 mcg Tablet 1,000 mcg PO DAILY fluticasone propionate 50 mcg/actuation [place],Suspension 1 spray INTRANASAL DAILY oxycodone 5 mg Tablet 10 mg PO BID oxycodone 5 mg Tablet 10 mg PO Q6H PRN (Reason: Pain) escitalopram oxalate 10 mg Tablet 10 mg PO DAILY acetaminophen 325 mg Tablet 650 mg PO Q4H PRN (Reason: Pain) loperamide 2 mg Tablet 2 mg PO Q3H PRN (Reason: Diarrhea) magnesium hydroxide [Milk of Magnesia] 400 mg/5 mL Suspension 30 ml PO BEDTIME PRN (Reason: Constipation) bisacodyl 10 mg Suppository 10 mg [place] DAILY PRN (Reason: Constipation) Rx Instructions: IF NO BOWEL MOVEMENT IN THREE DAYS OR 9 SHIFTS Fleet Enema 19-7 gram/118 mL Enema 118 ml NJ DAILY PRN (Reason: Constipation) apixaban 2.5 mg Tablet 2.5 mg PO BID diphenhydramine HCl 25 mg Tablet 25 mg PO Q6H PRN (Reason: PURITIS) lidocaine 4 % Adhesive Patch,Medicated 1 patch TOPICAL DAILY calcium polycarbophil 625 mg Tablet 625 mg PO BID ondansetron 4 mg Tablet,Disintegrating 4 mg PO Q6H PRN (Reason: Nausea) mirabegron 50 mg Tablet Extended Release 24 Hr 50 mg PO DAILY doxycycline hyclate 100 mg tablet 100 mg PO BID 8 Days Qty: 16 0RF amoxicillin-pot clavulanate [Augmentin] 500-125 mg tablet 1 tab PO BID 8 Days Qty: 16 0RF ascorbic acid (vitamin C) 1,000 mg tablet 1 g PO DAILY 90 Days Qty: 90 1RF methenamine hippurate 1 gram tablet 1 g PO DAILY 90 Days Qty: 90 1RF
[2023-11-09 13:57] VITALS: BP 106/65; PULSE 100; RESP 18; TEMP 36.8; O2SAT 95
[2023-11-09 14:03] LABS: MANUAL DIFF FLAG NO
[2023-11-09 14:05] LABS: Basophils Percent Auto 0.3 % (0-2); Eosinophils Percent Auto 0.1 % (0-4); Hematocrit 31.1 % (42.0-52.0); Hemoglobin 9.7 g/dl (14.0-18.0); Imm Gran Abs Auto 0.06 X10*3/uL (0.00-0.03); Imm Gran Pct Auto 0.5 % (0.0-0.4); Lymphocytes Absolute Auto 0.7 X10*3/uL (1.2-4.9); Lymphocytes Percent Auto 5.5 % (20-40); Mean Corpuscular HGB Conc 31.2 g/dl (31.0-36.0); Mean Corpuscular Hemoglobin 30.1 pg (27.0-33.0); Mean Corpuscular Volume 96.6 fL (80.0-98.0); Mean Platelet Volume 9.5 fL (9.4-12.4); Monocytes Absolute Auto 1.1 X10*3/uL (0.1-1.2); Monocytes Percent Auto 9.6 % (2-11); Platelet Count 200 X10*3/uL (160-400); Red Blood Count 3.22 X10*6/uL (4.60-5.80); Red Cell Distribution Width 17.1 % (11.0-16.0); White Blood Count 11.9 X10*3/uL (4.8-10.8)
[2023-11-09 14:14] LABS: Lactic Acid 1.2 mmol/L (0.5-2.0)
[2023-11-09 14:24] LABS: Alanine Aminotransferase 7 U/L (0-40); Albumin Level 3.2 g/dL (3.5-5.0); Alkaline Phosphatase 59 U/L (39-117); Anion Gap 11 (12-20); Aspartate Amino Transferase 13 U/L (5-37); Bilirubin Direct 0.2 mg/dL (0.0-0.5); Bilirubin Total 0.5 mg/dL (0.0-1.0); Blood Urea Nitrogen 23 mg/dL (9-16); Calcium 9.1 mg/dL (8.4-10.2); Carbon Dioxide 28 mmol/L (22-29); Chloride 103 mmol/L (96-108); Creatinine Clr Calc Pharmacy 49.4; Estimated Glomerular Filt Rate 47; Glucose Random 130 mg/dL (60-115); Potassium 4.1 mmol/L (3.3-5.1); Sodium 138 mmol/L (135-145); Total Protein 7.2 g/dL (6.5-8.0)
[2023-11-09] MEDS: cefTRIAXone sodium 1 GM in 0.9 % Sodium Chloride 50 ML IV (14:35)
[2023-11-09] MEDS: 0.9 % Sodium Chloride 1,000 ML 999 ML IVCONT (14:38)
[2023-11-09 14:57] LABS: Appearance Urine Turbid; Color Urine Dark Yellow; Glucose Urine UA Negative (Negative); Leukocyte Esterase Urine Large (3+) (Negative); Nitrite Urine Positive (Negative); UMIC TRIGGER UACC YES; Urine Blood Large (3+) (Negative); Urine Ketones Negative (Negative); Urine Protein 100 (2+) mg/dL (Neg-Trace)
[2023-11-09] MEDS: vancomycin/NS 2,000 MG/500 ML PLAST..BAG 250 MG IV (15:07)
[2023-11-09 15:11] LABS: RBC Urine >20 /HPF (0-2); UACC Culture Trigger YES; WBC Urine >50 /HPF (0-5)
[2023-11-09 15:12] LABS: Bacteria Urine 4+ (None Seen)
--- NOTE | 2023-11-09 15:25 | PM.IMHP ---
History of Present Illness Date of Service: 11/09/23 Chief Complaint: scrotal swelling and erythema An 83 years old male with PMH of PAF, CKD3, DM2, chronic back pain among others who [facility] as he still complaining of scrotal erythema and swelling. He was recently discharged from the hospital on Augmentin and Doxycycline. he improved initially then started to swollen and becoming erythematous on color with reported discomfort and pain. He also reports lower abdominal pain. No chest pain, palpitations, SOB, nausea, vomiting, diarrhea or fever. In ED he was started on IV Vancomycin. Admitted for further evaluation and treatment. Review of Systems Review of Systems: No fever, chills or weakness No chest pain, palpitation No shortness of breath or coughing No abdominal pain, nausea or vomiting swelling and erythema of scrotum No any rash or wounds PMFSH Medical History Cellulitis of scrotum PONV (postoperative nausea and vomiting) Cardiomyopathy COVID-19 vaccine series completed Depression Venous insufficiency Dysphagia [facility] resident Carbuncle of gluteal region C. difficile colitis Left bundle branch block Spinal stenosis Urine retention Osteoarthritis Benign prostate hyperplasia Hypertension CKD (chronic kidney disease) stage 3, GFR 30-59 ml/min CHF (congestive heart failure) Type 2 diabetes mellitus Atrial fibrillation Family History Other No family history of cardiovascular disease Surgical History History of incision and drainage History of ligation of vein H/O spinal fusion Social History Household Members: Other Household Members Other:: [facility] home Housing: Group Home Housing Other:: [employer] Home resident Are you a primary critical care nurse practitioner to a significant other at home: No Do you presently have visiting nurse or other home services: Yes (SNF) Unable to assess alcohol history related to: Unknown Alcohol intake: never Comment: resting in bed, eyes closed Patient Tobacco Use Status: Tobacco use Unknown Smoked in Last 30 Days: No Use of substances other than those prescribed or required for medical reasons: No Advance Directives: Yes Advance Directives on File: Yes Advance Directives Date on File: 10/17/23 service: No Current occupational status: retired Meds Allergies Allergy/AdvReac Type Severity Reaction Status Date / Time codeine AdvReac Intermediate Vomiting Verified 08/01/23 13:54 morphine AdvReac Intermediate Vomiting Verified 08/01/23 13:54 Home Medications Medication Instructions Recorded Confirmed Last Taken Type acetaminophen 325 mg tablet 650 mg PO Q4H PRN Pain 12/17/20 10/17/23 12/20/21 History bisacodyl 10 mg rectal suppository 10 mg [place] DAILY PRN Constipation 12/17/20 10/17/23 12/05/20 History cyanocobalamin (vitamin B-12) 1,000 mcg PO DAILY 12/17/20 10/17/23 10/17/22 History 1,000 mcg tablet escitalopram oxalate 10 mg tablet 10 mg PO DAILY 12/17/20 10/17/23 10/17/22 History fluticasone propionate 50 1 spray intranasal DAILY 12/17/20 10/17/23 10/17/22 History mcg/actuation nasal spray,suspension loperamide 2 mg tablet 2 mg PO Q3H PRN Diarrhea 12/17/20 10/17/23 12/10/20 History magnesium hydroxide 400 mg/5 mL 30 ml PO BEDTIME PRN Constipation 12/17/20 10/17/23 12/04/20 History oral suspension (Milk of Magnesia) multivitamin 1 tab PO DAILY 12/17/20 10/17/23 10/17/22 History oxycodone 5 mg tablet 10 mg PO BID 12/17/20 10/17/23 10/17/22 History oxycodone 5 mg tablet 10 mg PO Q6H PRN Pain 12/17/20 10/17/23 Unknown History sodium phosphates 19 gram-7 118 ml [place] DAILY PRN Constipation 12/17/20 10/17/23 Unknown History gram/118 mL enema (Fleet Enema) apixaban 2.5 mg tablet 2.5 mg PO BID 08/17/21 10/17/23 10/17/22 History diphenhydramine HCl 25 mg tablet 25 mg PO Q6H PRN PURITIS 12/20/21 10/17/23 12/19/21 History calcium polycarbophil 625 mg tablet 625 mg PO BID 10/17/23 10/17/23 10/17/22 History lidocaine 4 % topical patch 1 patch topical DAILY 10/17/23 10/17/23 10/17/22 History mirabegron 50 mg tablet,extended 50 mg PO DAILY 10/17/23 10/17/23 10/17/22 History release 24 hr ondansetron 4 mg disintegrating 4 mg PO Q6H PRN Nausea 10/17/23 10/17/23 Unknown History tablet Physical Exam Vital Signs and Narrative: Vital Signs: Last Vital Signs Temp 98.2 F 11/09/23 13:57 Pulse 100 11/09/23 13:57 Resp 18 11/09/23 13:57 BP 106/65 11/09/23 13:57 Pulse Ox 95 11/09/23 13:57 O2 Del Method Room Air 11/09/23 13:57 BMI result Body Mass Index 34.4 Const: Other: Constitutional : Awake, interactive, not in distress Neck : Normal inspection, Supple Cardiovascular : RRR, no JVP, no lower extremity edema Respiratory : good bilateral air entry, no crackles, wheezes or rhonchi Gastrointestinal: soft, lax, Normal bowel sounds, Non tender Skin : Warm, Dry, Uro: subrapubic cath in place, scrotal swelling and erythema, no drainage Neurological : Alert & oriented x3, No focal deficit Results Labs 11/09/23 13:54 11/09/23 13:54 Labs: Laboratory Results - last 24 hr 11/09/23 11/09/23 11/09/23 13:47 13:54 14:45 MCV 96.6 MCH 30.1 MCHC 31.2 RDW 17.1 H Plt Count 200 MPV 9.5 Immature Gran % (Auto) 0.5 H Neut % (Auto) 84.0 H Lymph % (Auto) 5.5 L [place] % (Auto) 9.6 Eos % (Auto) 0.1 Baso % (Auto) 0.3 Lymph # (Auto) 0.7 L [place] # (Auto) 1.1 Eos # (Auto) 0.0 Baso # (Auto) 0.0 Abs Immat Gran (auto) 0.06 H Absolute Neuts (auto) 10.0 H Absolute Nucleated RBC 0.000 Nucleated RBC % (auto) 0.0 Anion Gap 11 L Estim Creat Clear Calc 49.4 Estimated GFR 47 Random Glucose 130 H Lactic Acid 1.2 Calcium 9.1 D Total Bilirubin 0.5 Direct Bilirubin 0.2 AST 13 ALT 7 Alkaline Phosphatase 59 Total Protein 7.2 Albumin 3.2 L Urine Color Dark Yellow Urine Appearance Turbid Urine pH 6.0 Ur Specific [place] 1.020 Urine Protein 100 (2+) H Urine Glucose (UA) Negative Urine Ketones Negative Urine Blood Large (3+) H Urine Nitrite Positive H Ur Leukocyte Esterase Large (3+) H Urine RBC >20 H Urine WBC >50 H Ur Squamous Epith Cells 6-10 Urine Bacteria 4+ Hyaline Casts 3-5 Urine Yeast Present Assessment and Plan (1) Acute UTI: Status: Acute (2) Cellulitis of scrotum: Status: Acute (3) Acute kidney injury superimposed on CKD: Status: Acute Plan An 83 years old male with PMH of PAF, CKD3, DM2, chronic back pain among others who [facility] PO antibiotics as he still complaining of scrotal erythema and swelling. Scrotal cellulitis not septic failed outpatient antibiotics start Vanco and Zosyn Urology consult UTI in relation to suprapubic cath pending cultures on IV Abx JAZLYN on CKD3 Cr 1.4 from baseline less than 1 hold nephrotoxic IVF follow I\O and BMP Paroxysmal atrial fibrillation, rate controlled, On Eliquis Chronic back pain: On opioids Normocytic anemia: Hemoglobin above transfusion threshold DVT PPx Eliquis The patient will likely need 2 overnight hospital stay pending final cultures and specialist evaluation Quality Stroke Does the patient have a stroke diagnosis?: No VTE Prior VTE?: No VTE Risk Level:: Medical - moderate - high VTE Device Contraindication: Treatment Not Indicated VTE Drug Contraindication: N/A - Med Ordered
--- NOTE | 2023-11-09 15:44 | PHA.MEDREC ---
Pharmacy Consult ? Medication Reconciliation Pharmacy has completed the medication reconciliation. Patient came from [facility]. Agustina Arita, SukhdeepD
--- NOTE | 2023-11-09 15:58 | PHA.PROG ---
Admission Date/Time: November 09, 2023 15:19 Indication: Scrotal cellulitis Weight in k.2 kg Adjusted body weight in K.64 kg [place] body weight in K.6 kg Obesity Dosing Indication % IBW: 148% Serum Creatinine - Last 168 Hours 11/09/23 13:54 Creatinine 1.43 H Estimated CrCl and GFR - Last 168 Hours 11/09/23 13:54 Estim Creat Clear Calc 49.4 Estimated GFR 47 Vancomycin Loading Dose: 2000 mg Current Vancomycin Dosing Regimen: 1250 mg Q24H Date and Time for next Vancomycin Level to be drawn: 11/12 @ 1300 Pharmacist Comments on Vancomycin Plan: Patient received an adequate load dose in the ER on 11/09 @ 1507 Maintenance dose vancomycin 1250 mg Q24H is scheduled to start 11/10 @ 1500. Predicted AUC is 511 with a trough of 16.1. Patient is consider obese with %IBW > 130%, therefore carefull monitor is required due to vancomycin high volume of distribution Level will be drawn prior to 4th dose Pharmacy will monitor renal function daily Agustina Arita PharmD Vancomycin dosing will take advantage of [employer] as a clinical decision support tool that uses Bayesian modeling to calculate individual patient's pharmacokinetic parameters and forecast the patient's drug concentration time course with the target goal AUC 24 range of 400 - 600 mg/L/hr.
[2023-11-09] MEDS: Piperacillin Sodium/Tazobactam 2.25 GM in 0.9 % Sodium Chloride 50 ML IV ×2 (17:14→21:08)
[2023-11-09] MEDS: 0.9 % Sodium Chloride 1,000 ML 100 ML IVCONT (17:15)
[2023-11-09 19:10] VITALS: BP 116/58; PULSE 87; RESP 20; TEMP 36.7; O2SAT 92
[2023-11-09 19:59] VITALS: BP 110/57; PULSE 93; RESP 17; TEMP 36.8; O2SAT 96
[2023-11-09 20:00] VITALS: BMI 32.2
[2023-11-09 20:16] LABS: Glucose, Whole Blood 146 mg/dL (60-115)
--- NOTE | 2023-11-09 21:46 | HO.SKINPHOTO ---
Location: [facility] Category: Blanchable redness
[2023-11-10 03:01] VITALS: BP 110/60; PULSE 58; RESP 18; TEMP 36.3; O2SAT 93
[2023-11-10] MEDS: Piperacillin Sodium/Tazobactam 2.25 GM in 0.9 % Sodium Chloride 50 ML IV ×4 (04:42→20:20)
[2023-11-10 06:35] LABS: Hematocrit 27.7 % (42.0-52.0); Hemoglobin 8.5 g/dl (14.0-18.0); Mean Corpuscular HGB Conc 30.7 g/dl (31.0-36.0); Mean Corpuscular Volume 97.9 fL (80.0-98.0); Platelet Count 184 X10*3/uL (160-400); Red Blood Count 2.83 X10*6/uL (4.60-5.80); Red Cell Distribution Width 17.2 % (11.0-16.0); White Blood Count 9.6 X10*3/uL (4.8-10.8)
[2023-11-10 06:58] LABS: Anion Gap 11 (12-20); Blood Urea Nitrogen 20 mg/dL (9-16); Calcium 8.4 mg/dL (8.4-10.2); Carbon Dioxide 26 mmol/L (22-29); Chloride 106 mmol/L (96-108); Creatinine Clr Calc Pharmacy 55.2; Estimated Glomerular Filt Rate 55; Glucose Random 93 mg/dL (60-115); Potassium 4.3 mmol/L (3.3-5.1); Sodium 139 mmol/L (135-145)
[2023-11-10 07:09] LABS: Band Neutrophils Percent 5 % (3-5); Lymphocytes Absolute Manual 0.3 X10*3/uL (1.2-4.9); Lymphocytes Percent Manual 3 % (20-40); Monocytes Absolute Manual 0.3 X10*3/uL (0.1-1.2); Monocytes Percent Manual 3 % (2-11); Neutrophils Percent Manual 89 % (45-73)
[2023-11-10 07:10] LABS: Hypochromasia 1+ (5-14) /OIF; Platelet Estimate NORMAL (NORMAL); Platelet Morphology Comment NORMAL; RBC Morphology NOTED
[2023-11-10 07:36] VITALS: BP 115/56; PULSE 90; RESP 18; TEMP 36.3; O2SAT 91
[2023-11-10 07:44] LABS: Glucose, Whole Blood 98 mg/dL (60-115)
[2023-11-10] MEDS: 0.9 % Sodium Chloride Flush 3 ML SYRINGE IVFLUSH ×3 (09:35→20:20)
--- NOTE | 2023-11-10 11:08 | P.PNIM_ITS ---
Subjective Subjective Date of Service: 11/10/23 Interval History: Seen and evaluated feels uncomfortable erythema and swelling mildly better Review of Systems Review of Systems: Yes all other systems are reviewed and are negative Physical Exam 2 Vital Signs: Vital Signs: Last Vital Signs Temp 97.3 F 11/10/23 07:36 Pulse 90 11/10/23 07:36 Resp 18 11/10/23 07:36 BP 115/56 L 11/10/23 07:36 Pulse Ox 91 L 11/10/23 07:36 O2 Del Method Room Air 11/10/23 07:36 BMI result Body Mass Index 32.2 Const: Other: Constitutional : Awake, interactive, not in distress Neck : Normal inspection, Supple Cardiovascular : RRR, no JVP, no lower extremity edema Respiratory : good bilateral air entry, no crackles, wheezes or rhonchi Gastrointestinal: soft, lax, Normal bowel sounds, Non tender Skin : Warm, Dry, Uro: subrapubic cath in place, scrotal swelling and erythema, no drainage Neurological : Alert & oriented to self and place, No focal deficit Objective Data Active Medications Acetaminophen (Acetaminophen 325 Mg Tablet) 650 mg PO Q6H PRN PRN Reason: Pain, Mild (Pain Scale 1-3) Piperacillin Sod/Tazobactam (Sod 2.25 gm/ Sodium Chloride) 50 mls @ 100 mls/hr IV Q6H [facility] Last Infusion: 11/10/23 10:20 Dose: Infused Documented By: DARIA Vancomycin HCl 1,250 mg/ (Sodium Chloride) 250 mls @ 166.667 mls/hr IV Q24H [facility] Ondansetron HCl (Ondansetron Hcl 4 Mg/2 Ml Vial) 4 mg IVPUSH Q8H PRN PRN Reason: Nausea and Vomiting Pharmacy Consult (Consult Rx Vancomycin Dosing) 1 each MISCELLANE DAILY PRN PRN Reason: Consult order Sodium Chloride (0.9 % Sodium Chloride Flush 3 Ml Syringe) 3 ml IVFLUSH QSHIFT [facility] Last Admin: 11/10/23 09:35 Dose: 3 ml Documented By: DARIA Labs 11/10/23 05:10 11/10/23 05:10 Labs: Laboratory Results - last 24 hr 11/09/23 11/09/23 11/09/23 13:47 13:54 14:45 MCV 96.6 MCH 30.1 MCHC 31.2 RDW 17.1 H Plt Count 200 MPV 9.5 Immature Gran % (Auto) 0.5 H Neut % (Auto) 84.0 H Lymph % (Auto) 5.5 L [place] % (Auto) 9.6 Eos % (Auto) 0.1 Baso % (Auto) 0.3 Lymph # (Auto) 0.7 L [place] # (Auto) 1.1 Eos # (Auto) 0.0 Baso # (Auto) 0.0 Abs Immat Gran (auto) 0.06 H Absolute Neuts (auto) 10.0 H Absolute Nucleated RBC 0.000 Nucleated RBC % (auto) 0.0 Neutrophils % (Manual) Band Neutrophils % Lymphocytes % (Manual) Monocytes % (Manual) Abs Neuts (Manual) Lymphocytes # (Manual) Monocytes # (Manual) Platelet Estimate Plt Morphology Comment RBC Morphology Hypochromasia Anion Gap 11 L Estim Creat Clear Calc 49.4 Estimated GFR 47 POC Glucose Random Glucose 130 H Lactic Acid 1.2 Calcium 9.1 D Total Bilirubin 0.5 Direct Bilirubin 0.2 AST 13 ALT 7 Alkaline Phosphatase 59 Total Protein 7.2 Albumin 3.2 L Urine Color Dark Yellow Urine Appearance Turbid Urine pH 6.0 Ur Specific [place] 1.020 Urine Protein 100 (2+) H Urine Glucose (UA) Negative Urine Ketones Negative Urine Blood Large (3+) H Urine Nitrite Positive H Ur Leukocyte Esterase Large (3+) H Urine RBC >20 H Urine WBC >50 H Ur Squamous Epith Cells 6-10 Urine Bacteria 4+ Hyaline Casts 3-5 Urine Yeast Present 11/09/23 11/10/23 11/10/23 20:05 05:10 07:40 MCV 97.9 MCH 30.0 MCHC 30.7 L RDW 17.2 H Plt Count 184 MPV 10.0 Immature Gran % (Auto) Cancelled Neut % (Auto) Cancelled Lymph % (Auto) Cancelled [place] % (Auto) Cancelled Eos % (Auto) Cancelled Baso % (Auto) Cancelled Lymph # (Auto) Cancelled [place] # (Auto) Cancelled Eos # (Auto) Cancelled Baso # (Auto) Cancelled Abs Immat Gran (auto) Cancelled Absolute Neuts (auto) Cancelled Absolute Nucleated RBC 0.000 Nucleated RBC % (auto) 0.0 Neutrophils % (Manual) 89 H Band Neutrophils % 5 Lymphocytes % (Manual) 3 L Monocytes % (Manual) 3 Abs Neuts (Manual) 9.0 H Lymphocytes # (Manual) 0.3 L Monocytes # (Manual) 0.3 Platelet Estimate NORMAL Plt Morphology Comment NORMAL RBC Morphology NOTED Hypochromasia 1+ (5-14) Anion Gap 11 L Estim Creat Clear Calc 55.2 Estimated GFR 55 POC Glucose 146 H 98 Random Glucose 93 Lactic Acid Calcium 8.4 D Total Bilirubin Direct Bilirubin AST ALT Alkaline Phosphatase Total Protein Albumin Urine Color Urine Appearance Urine pH Ur Specific [place] Urine Protein Urine Glucose (UA) Urine Ketones Urine Blood Urine Nitrite Ur Leukocyte Esterase Urine RBC Urine WBC Ur Squamous Epith Cells Urine Bacteria Hyaline Casts Urine Yeast Assessment and Plan (1) Acute kidney injury superimposed on CKD: Status: Acute (2) Acute UTI: Status: Acute (3) Cellulitis of scrotum: Status: Acute Plan An 83 years old male with PMH of PAF, CKD3, DM2, chronic back pain among others who presented [facility] for [facility] of PO antibiotics as he still complaining of scrotal erythema and swelling. Scrotal cellulitis not septic failed outpatient antibiotics continue Vanco and Zosyn Urology consult UTI in relation to suprapubic cath pending cultures on IV Abx JAZLYN on CKD3 Cr improved to 1.2 hold nephrotoxic continue IVF follow I\O and BMP Paroxysmal atrial fibrillation, rate controlled, On Eliquis Chronic back pain: On opioids Normocytic anemia: Hemoglobin above transfusion threshold DVT PPx Eliquis The patient will likely need overnight hospital stay pending final cultures and specialist evaluation Quality Stroke Does the patient have a stroke diagnosis?: No VTE Prior VTE?: No VTE Risk Level:: Medical - moderate - high VTE Device Contraindication: Treatment Not Indicated VTE Drug Contraindication: N/A - Med Ordered
--- NOTE | 2023-11-10 11:15 | PC.NURSE ---
Pt states he typically get OOB with thuan lift into a wheel chair, when offered to get pt OOB with thuan lift to reclining chair pt declined. Pt currently being turned and repositioned in bed Q2 hrs and as needed, foam dressing applied to heals for preventative measures.
[2023-11-10 11:56] LABS: Glucose, Whole Blood 119 mg/dL (60-115)
[2023-11-10] MEDS: oxyCODONE HCl Immed Release 5 MG TABLET PO (12:00)
--- NOTE | 2023-11-10 14:40 | MHC.CM.PN ---
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
[2023-11-10 15:26] VITALS: BP 132/58; PULSE 92; RESP 18; TEMP 36.9; O2SAT 92
[2023-11-10] MEDS: vancomycin HCL 1,250 MG in 0.9 % Sodium Chloride 250 ML 166.67 MG IV (15:59)
[2023-11-10 16:34] LABS: Glucose, Whole Blood 116 mg/dL (60-115)
[2023-11-10 20:00] VITALS: BP 113/53; PULSE 96; RESP 20; TEMP 36.8; O2SAT 92
[2023-11-10 20:27] LABS: Glucose, Whole Blood 100 mg/dL (60-115)
[2023-11-11 03:12] VITALS: BP 113/57; PULSE 91; RESP 18; TEMP 36.8; O2SAT 93
[2023-11-11] MEDS: Piperacillin Sodium/Tazobactam 2.25 GM in 0.9 % Sodium Chloride 50 ML IV ×4 (03:18→21:16)
[2023-11-11 06:27] LABS: Hematocrit 25.5 % (42.0-52.0); Mean Corpuscular HGB Conc 31.4 g/dl (31.0-36.0); Mean Corpuscular Hemoglobin 30.5 pg (27.0-33.0); Mean Corpuscular Volume 97.3 fL (80.0-98.0); Platelet Count 168 X10*3/uL (160-400); Red Blood Count 2.62 X10*6/uL (4.60-5.80); Red Cell Distribution Width 17.2 % (11.0-16.0); White Blood Count 7.4 X10*3/uL (4.8-10.8)
[2023-11-11 06:33] LABS: Creatinine Clr Calc Pharmacy 63.4; Estimated Glomerular Filt Rate > 60
[2023-11-11 06:37] LABS: Anion Gap 13 (12-20); Blood Urea Nitrogen 16 mg/dL (9-16); Calcium 8.2 mg/dL (8.4-10.2); Carbon Dioxide 26 mmol/L (22-29); Chloride 106 mmol/L (96-108); Creatinine Clr Calc Pharmacy 65.8; Estimated Glomerular Filt Rate > 60; Glucose Random 82 mg/dL (60-115); Potassium 3.5 mmol/L (3.3-5.1); Sodium 141 mmol/L (135-145)
[2023-11-11 07:20] VITALS: BP 115/58; PULSE 72; RESP 16; TEMP 36.6; O2SAT 92
[2023-11-11] MEDS: 0.9 % Sodium Chloride Flush 3 ML SYRINGE IVFLUSH ×3 (07:46→21:16)
[2023-11-11 07:48] LABS: Glucose, Whole Blood 88 mg/dL (60-115)
[2023-11-11] MEDS: oxyCODONE HCl Immed Release 5 MG TABLET PO (09:23)
--- NOTE | 2023-11-11 10:38 | HO.SKINPHOTO ---
Addendum entered by Renee Milan RN 11/11/23 12:29: Air loss pump ordered for mattress. 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 Pt being turned and repositioned in bed and chair every 2 hours and as needed. Foam dressing applied to left buttock, foam dressing applied to heels and pressure off loaded for prevention. Scrotum and penis continue to be warm, red, and edematous. Serosanguineous drainage noted from scrotum wound, area cleansed with NaCl, protective cream applied. MD Purcell aware. Location: Scrotum
--- NOTE | 2023-11-11 10:46 | P.PNIM_ITS ---
Subjective Subjective Date of Service: 11/11/23 Interval History: Seen and evaluated feels little better erythema and swelling mildly better but noticed small puncture to his scrotum Review of Systems Review of Systems: Yes all other systems are reviewed and are negative Physical Exam 2 Vital Signs: Vital Signs: Last Vital Signs Temp 97.9 F 11/11/23 07:20 Pulse 72 11/11/23 07:20 Resp 16 11/11/23 07:20 BP 115/58 L 11/11/23 07:20 Pulse Ox 92 11/11/23 07:20 O2 Del Method Room Air 11/11/23 07:20 BMI result Body Mass Index 32.2 Const: Other: Constitutional : Awake, interactive, not in distress Neck : Normal inspection, Supple Cardiovascular : RRR, no JVP, no lower extremity edema Respiratory : good bilateral air entry, no crackles, wheezes or rhonchi Gastrointestinal: soft, lax, Normal bowel sounds, Non tender Skin : Warm, Dry, Uro: subrapubic cath in place, decreased scrotal swelling and erythema, small puncute midline scrotum with small drainage Neurological : Alert & oriented to self and place, No focal deficit Objective Data Active Medications Acetaminophen (Acetaminophen 325 Mg Tablet) 650 mg PO Q6H PRN PRN Reason: Pain, Mild (Pain Scale 1-3) Piperacillin Sod/Tazobactam (Sod 2.25 gm/ Sodium Chloride) 50 mls @ 100 mls/hr IV Q6H [facility] Last Infusion: 11/11/23 09:50 Dose: Infused Documented By: DARIA Vancomycin HCl 1,250 mg/ (Sodium Chloride) 250 mls @ 166.667 mls/hr IV Q24H [facility] Last Infusion: 11/10/23 17:33 Dose: Infused Documented By: DARIA Ondansetron HCl (Ondansetron Hcl 4 Mg/2 Ml Vial) 4 mg IVPUSH Q8H PRN PRN Reason: Nausea and Vomiting Oxycodone HCl (Oxycodone Hcl Immed Release 5 Mg Tablet) 5 mg PO Q6H PRN PRN Reason: Pain, Severe (Pain Scale 7-10) Last Admin: 11/11/23 09:23 Dose: 5 mg Documented By: DARIA Pharmacy Consult (Consult Rx Vancomycin Dosing) 1 each MISCELLANE DAILY PRN PRN Reason: Consult order Sodium Chloride (0.9 % Sodium Chloride Flush 3 Ml Syringe) 3 ml IVFLUSH QSHIFT [facility] Last Admin: 11/11/23 07:46 Dose: 3 ml Documented By: DARIA Labs 11/11/23 05:17 11/11/23 05:17 Labs: Laboratory Results - last 24 hr 11/10/23 11/10/23 11/10/23 11:52 16:30 20:08 MCV MCH MCHC RDW Plt Count MPV Absolute Nucleated RBC Nucleated RBC % (auto) Anion Gap Estim Creat Clear Calc Estimated GFR POC Glucose 119 H 116 H 100 Random Glucose Calcium 11/11/23 11/11/23 11/11/23 05:17 05:17 05:17 MCV 97.3 MCH 30.5 MCHC 31.4 RDW 17.2 H Plt Count 168 MPV 10.0 Absolute Nucleated RBC 0.000 Nucleated RBC % (auto) 0.0 Anion Gap 13 Estim Creat Clear Calc 65.8 63.4 Estimated GFR > 60 > 60 POC Glucose Random Glucose 82 Calcium 8.2 L 11/11/23 07:23 MCV MCH MCHC RDW Plt Count MPV Absolute Nucleated RBC Nucleated RBC % (auto) Anion Gap Estim Creat Clear Calc Estimated GFR POC Glucose 88 Random Glucose Calcium Microbiology Microbiology Results: Microbiology 11/09/23 13:54 Blood Culture - Preliminary Blood - Venous No growth after 24 hours. 11/09/23 13:44 Blood Culture - Preliminary Blood - Venous No growth after 24 hours. 11/09/23 Unknown Urine Culture - Preliminary Urine Other - Suprapubic Culture in progress. Assessment and Plan (1) Acute kidney injury superimposed on CKD: Status: Acute (2) Cellulitis of scrotum: Status: Acute Plan An 83 years old male with PMH of PAF, CKD3, DM2, chronic back pain among others who presented [facility] of PO antibiotics as he still complaining of scrotal erythema and swelling. Scrotal cellulitis and edema not septic failed outpatient antibiotics continue Vanco and Zosyn Urology consult pending check US scrotum UTI in relation to suprapubic cath pending cultures on IV Abx JAZLYN on CKD3 Cr improved to 1 hold nephrotoxic dc IVF follow I\O and BMP Paroxysmal atrial fibrillation, rate controlled, On Eliquis Chronic back pain: On opioids Normocytic anemia: Hemoglobin above transfusion threshold DVT PPx Eliquis The patient will likely need overnight hospital stay pending final cultures and specialist evaluation Quality Stroke Does the patient have a stroke diagnosis?: No VTE Prior VTE?: No VTE Risk Level:: Medical - moderate - high VTE Device Contraindication: Treatment Not Indicated VTE Drug Contraindication: N/A - Med Ordered
--- NOTE | 2023-11-11 11:16 | PC.NURSE ---
Pt OOB with 2A and thuan lift to chair. All safety measures in place, call arguelles in reach, pt tolerated well.
[2023-11-11 11:32] LABS: Glucose, Whole Blood 115 mg/dL (60-115)
[2023-11-11 13:24] LABS: Vancomycin Random 12.8 mcg/mL (15-20)
--- NOTE | 2023-11-11 13:50 | HE.PHANOTE ---
RE [facility] PATIENTS LEVEL CAME BACK AT 12.8. WILL CONTINUE WITH CURRENT DOSE OF 1250 MG Q24H. PREDICTED AUC 435. NEXT LEVEL TOMORROW 11/12 @1300
[2023-11-11] MEDS: vancomycin HCL 1,250 MG in 0.9 % Sodium Chloride 250 ML 166.67 MG IV (14:51)
[2023-11-11 15:02] VITALS: BP 123/60; PULSE 76; RESP 18; TEMP 36.6; O2SAT 93
[2023-11-11 16:28] LABS: Glucose, Whole Blood 110 mg/dL (60-115)
[2023-11-11 19:21] VITALS: BP 108/52; PULSE 80; RESP 17; TEMP 36.9; O2SAT 95
[2023-11-11 20:40] LABS: Glucose, Whole Blood 108 mg/dL (60-115)
[2023-11-12 03:36] VITALS: BP 101/60; PULSE 93; RESP 17; TEMP 36.7; O2SAT 94
[2023-11-12] MEDS: Piperacillin Sodium/Tazobactam 2.25 GM in 0.9 % Sodium Chloride 50 ML IV ×4 (03:54→21:22)
[2023-11-12 06:15] LABS: Anion Gap 11 (12-20); Blood Urea Nitrogen 13 mg/dL (9-16); Calcium 8.3 mg/dL (8.4-10.2); Carbon Dioxide 26 mmol/L (22-29); Chloride 108 mmol/L (96-108); Creatinine Clr Calc Pharmacy 72.8; Estimated Glomerular Filt Rate > 60; Glucose Random 83 mg/dL (60-115); Potassium 3.4 mmol/L (3.3-5.1); Sodium 142 mmol/L (135-145)
[2023-11-12 07:33] VITALS: BP 139/67; PULSE 70; RESP 18; TEMP 36.8; O2SAT 93
--- NOTE | 2023-11-12 09:51 | P.PNIM_ITS ---
Subjective Subjective Date of Service: 11/12/23 Interval History: Seen and evaluated More alert but overall frail looking erythema and swelling mildly better but noticed small puncture to his scrotum urine cx growing 2 different bacterias Review of Systems Review of Systems: Yes all other systems are reviewed and are negative Physical Exam 2 Vital Signs: Vital Signs: Last Vital Signs Temp 98.3 F 11/12/23 07:33 Pulse 70 11/12/23 07:33 Resp 18 11/12/23 07:33 BP 139/67 11/12/23 07:33 Pulse Ox 93 11/12/23 07:33 O2 Del Method Room Air 11/12/23 07:33 BMI result Body Mass Index 32.2 Const: Other: Constitutional : Awake, interactive, not in distress Neck : Normal inspection, Supple Cardiovascular : RRR, no JVP, no lower extremity edema Respiratory : good bilateral air entry, no crackles, wheezes or rhonchi Gastrointestinal: soft, lax, Normal bowel sounds, Non tender Skin : Warm, Dry, Uro: subrapubic cath in place, decreased scrotal swelling and erythema, small puncute midline scrotum with small drainage Neurological : Alert & oriented to self and place, No focal deficit Objective Data Active Medications Acetaminophen (Acetaminophen 325 Mg Tablet) 650 mg PO Q6H PRN PRN Reason: Pain, Mild (Pain Scale 1-3) Piperacillin Sod/Tazobactam (Sod 2.25 gm/ Sodium Chloride) 50 mls @ 100 mls/hr IV Q6H [facility] Last Infusion: 11/12/23 04:38 Dose: Infused Documented By: LALITA Vancomycin HCl 1,250 mg/ (Sodium Chloride) 250 mls @ 166.667 mls/hr IV Q24H [facility] Last Infusion: 11/11/23 16:21 Dose: Infused Documented By: DARIA Ondansetron HCl (Ondansetron Hcl 4 Mg/2 Ml Vial) 4 mg IVPUSH Q8H PRN PRN Reason: Nausea and Vomiting Oxycodone HCl (Oxycodone Hcl Immed Release 5 Mg Tablet) 5 mg PO Q6H PRN PRN Reason: Pain, Severe (Pain Scale 7-10) Last Admin: 11/11/23 09:23 Dose: 5 mg Documented By: DARIA Pharmacy Consult (Consult Rx Vancomycin Dosing) 1 each MISCELLANE DAILY PRN PRN Reason: Consult order Sodium Chloride (0.9 % Sodium Chloride Flush 3 Ml Syringe) 3 ml IVFLUSH QSHIFT [facility] Last Admin: 11/11/23 21:16 Dose: 3 ml Documented By: STANLEY Labs 11/11/23 05:17 11/12/23 05:14 Labs: Laboratory Results - last 24 hr 11/11/23 11/11/23 11/11/23 11:18 13:04 16:24 Anion Gap Estim Creat Clear Calc Estimated GFR POC Glucose 115 110 Random Glucose Calcium Random Vancomycin 12.8 L 11/11/23 11/12/23 20:26 05:14 Anion Gap 11 L Estim Creat Clear Calc 72.8 Estimated GFR > 60 POC Glucose 108 Random Glucose 83 Calcium 8.3 L Random Vancomycin Microbiology Microbiology Results: Microbiology 11/09/23 Unknown Urine Culture - Final Urine Other - Suprapubic Providencia stuartii Pseudomonas aeruginosa 11/09/23 13:54 Blood Culture - Preliminary Blood - Venous No growth after 48 hours. 11/09/23 13:44 Blood Culture - Preliminary Blood - Venous No growth after 48 hours. Assessment and Plan (1) Acute kidney injury superimposed on CKD: Status: Acute (2) Acute UTI: Status: Acute (3) Cellulitis of scrotum: Status: Acute Plan An 83 years old male with PMH of PAF, CKD3, DM2, chronic back pain among others who presented [facility] of PO antibiotics as he still complaining of scrotal erythema and swelling. Scrotal cellulitis and edema failed outpatient antibiotics US scrotum not showing any abscesses continue Zosyn for pseudomonas coverage Add Ceftriaxone for Providencia get ID eval Urology consult pending UTI in relation to suprapubic cath Urine cultures growing MDR Providencia and Pseudomonas on IV Abx JAZLYN on CKD3 Cr improved to 1 hold nephrotoxic dc IVF follow I\O and BMP Paroxysmal atrial fibrillation, rate controlled, On Eliquis Chronic back pain: On opioids Normocytic anemia: Hemoglobin above transfusion threshold DVT PPx Eliquis The patient will likely need overnight hospital stay pending final cultures and specialist evaluation Quality Stroke Does the patient have a stroke diagnosis?: No VTE Prior VTE?: No VTE Risk Level:: Medical - moderate - high VTE Device Contraindication: Treatment Not Indicated VTE Drug Contraindication: N/A - Med Ordered
[2023-11-12] MEDS: 0.9 % Sodium Chloride Flush 3 ML SYRINGE IVFLUSH ×3 (10:26→23:50)
--- NOTE | 2023-11-12 10:40 | P.CNUR_ITS ---
History of Present Illness Consult details Consult date: 11/12/23 Narrative: Clarence is an 83 year old [facility] He is followed by Urology, he has a SP tube in place for neurogenic bladder which is changed every 4-6 weeks. He is noted to have persistent scrotal swelling. He was evaluated by Urology 10/22/23 fpr scrotal swelling, and had a cystogram which did not indicate a fistula. Scrotal US 11/11/23- Cellulitis no discreet abscess noted. Review of Systems 2 Review of Systems: 10 point ROS negative other than stated in HPI [facility] Past Medical History Medical History Cellulitis of scrotum PONV (postoperative nausea and vomiting) Cardiomyopathy COVID-19 vaccine series completed Depression Venous insufficiency Dysphagia [facility] resident Carbuncle of gluteal region C. difficile colitis Left bundle branch block Spinal stenosis Urine retention Osteoarthritis Benign prostate hyperplasia Hypertension CKD (chronic kidney disease) stage 3, GFR 30-59 ml/min CHF (congestive heart failure) Type 2 diabetes mellitus Atrial fibrillation Family History Family History Other No family history of cardiovascular disease Surgical History Surgical History History of incision and drainage History of ligation of vein H/O spinal fusion Social History Social History Household Members: Other Household Members Other:: [facility] Housing: Custodial Housing Other:: [facility] Are you a primary healthcare administration internship to a significant other at home: No Do you presently have visiting nurse or other home services: Yes (SNF) Unable to assess alcohol history related to: Unknown Alcohol intake: never Comment: resting in bed, eyes closed Patient Tobacco Use Status: Former Tobacco user Smoked in Last 30 Days: No Use of substances other than those prescribed or required for medical reasons: No Currently Displaying Signs/Symptoms of Drug Intoxication Withdrawal: No Have you been hit, kicked, punched, or otherwise hurt by someone within the past year? If so, by whom?: No Do you feel safe in your current relationship?: No Current Relationship Is there a partner from a previous relationship who is making you feel unsafe now?: No Are you made to feel afraid or neglected: No Advance Directives: Yes Advance Directives on File: Yes Advance Directives Date on File: 10/17/23 Do you have thoughts of harming others: None Do you have a plan to hurt others: No Plan Recently lost weight without trying: No Nutrition Risks: No Nutritional Risk service: Yes Current occupational status: retired Meds Allergies Allergy/AdvReac Type Severity Reaction Status Date / Time codeine AdvReac Intermediate Vomiting Verified 08/01/23 13:54 morphine AdvReac Intermediate Vomiting Verified 08/01/23 13:54 Active Medications: Current Medications Acetaminophen (Acetaminophen 325 Mg Tablet) 650 mg PO Q6H PRN PRN Reason: Pain, Mild (Pain Scale 1-3) Piperacillin Sod/Tazobactam (Sod 2.25 gm/ Sodium Chloride) 50 mls @ 100 mls/hr IV Q6H [facility] Last Admin: 11/12/23 10:24 Dose: 100 mls/hr Ceftriaxone Sodium 1 gm/ (Sodium Chloride) 50 mls @ 100 mls/hr IV Q24H [facility] Ondansetron HCl (Ondansetron Hcl 4 Mg/2 Ml Vial) 4 mg IVPUSH Q8H PRN PRN Reason: Nausea and Vomiting Oxycodone HCl (Oxycodone Hcl Immed Release 5 Mg Tablet) 5 mg PO Q6H PRN PRN Reason: Pain, Severe (Pain Scale 7-10) Last Admin: 11/11/23 09:23 Dose: 5 mg Pharmacy Consult (Consult Rx Vancomycin Dosing) 1 each MISCELLANE DAILY PRN PRN Reason: Consult order Sodium Chloride (0.9 % Sodium Chloride Flush 3 Ml Syringe) 3 ml IVFLUSH QSHIFT [facility] Last Admin: 11/12/23 10:26 Dose: 3 ml Home Medications Medication Instructions Recorded Confirmed Last Taken Type acetaminophen 325 mg tablet 650 mg PO Q4H PRN Pain 12/17/20 11/09/23 12/20/21 History cyanocobalamin (vitamin B-12) 1,000 mcg PO DAILY 12/17/20 11/09/23 11/09/23 History 1,000 mcg tablet escitalopram oxalate 10 mg tablet 20 mg PO DAILY 12/17/20 11/09/23 11/09/23 History fluticasone propionate 50 1 spray intranasal DAILY 12/17/20 11/09/23 11/09/23 History mcg/actuation nasal spray,suspension multivitamin 1 tab PO DAILY 12/17/20 11/09/23 11/09/23 History oxycodone 5 mg tablet 10 mg PO BID 12/17/20 11/09/23 11/09/23 History oxycodone 5 mg tablet 10 mg PO Q6H PRN Pain 12/17/20 11/09/23 Unknown History apixaban 2.5 mg tablet 2.5 mg PO BID 08/17/21 11/09/23 11/09/23 History calcium polycarbophil 625 mg tablet 625 mg PO BID 10/17/23 11/09/23 11/09/23 History lidocaine 4 % topical patch 1 patch topical DAILY 10/17/23 11/09/23 11/09/23 History mirabegron 50 mg tablet,extended 50 mg PO DAILY 10/17/23 11/09/23 11/09/23 History release 24 hr ondansetron 4 mg disintegrating 4 mg PO Q6H PRN Nausea 10/17/23 11/09/23 Unknown History tablet Physical Exam 2 Vital Signs: Vital Signs: Last Vital Signs Temp 98.3 F 11/12/23 07:33 Pulse 70 11/12/23 07:33 Resp 18 11/12/23 07:33 BP 139/67 11/12/23 07:33 Pulse Ox 93 11/12/23 07:33 O2 Del Method Room Air 11/12/23 07:33 BMI result Body Mass Index 32.2 Const: General: healthy appearing, no acute distress and well developed O rientation/consciousness: patient oriented x3 HEENT: Head: Yes normocephalic and Yes atraumatic Eyes: Conjunctivae: conjunctivae normal Neck: Neck: Yes normal visual inspection Chest: Chest palpation & inspection: normal inspection of the chest Resp: Effort & Inspection: normal respiratory effort Cardio: Rate: regular rate GI: Inspection: Yes normal to inspection Palpation (GI): Soft to palpation : Other: penile and scrotal edema. Skin: General skin exam: no rashes or lesions noted Neuro: General: patient oriented x3 Psych: Appearance: grossly normal Affect: normal affect Results Labs 11/11/23 05:17 11/12/23 05:14 Labs: Abnormal lab results 11/11/23 11/12/23 Range/Units 13:04 05:14 Anion Gap 11 L (12-20) Calcium 8.3 L (8.4-10.2) mg/dL Random Vancomycin 12.8 L (15-20) mcg/mL BMP 11/12/23 05:14 Sodium 142 Potassium 3.4 Chloride 108 Carbon Dioxide 26 BUN 13 Creatinine 0.94 Calcium 8.3 L Urine 11/09/23 Range/Units 14:45 Urine Color Dark Yellow Urine Appearance Turbid Urine pH 6.0 (5.0-9.0) Ur Specific [place] 1.020 (1.005-1.025) Urine Protein 100 (2+) H (Neg-Trace) mg/dL Urine Glucose (UA) Negative (Negative) mg/dL Collected: 11/09/23-UNK Status: COMP Req#: [id number] Received: 11/09/23-1550 Source: UROTHER Sp Desc: Suprapubic Subm Dr: Shiela Alvarado MD Ordered: Urine Culture Procedure Result Verified Urine Culture Final 11/12/23 Organism 1 Providencia stuartii Quant > 100,000 cfu/mL Organism 2 Pseudomonas aeruginosa Quant > 100,000 cfu/mL P stuartii P aerugino M.I.C. RX M.I.C. RX --------- --- --------- --- Ampicillin >=32 R Ceftriaxone <=0.25 S Gentamicin 2 R >=16 R Levofloxacin >=8 R >=8 R Meropenem >=16 R Nitrofurantoin 256 R Trimethoprim/Sulfamethoxazole <=20 S Imaging Additional studies: Date of Service: 11/11/23 EXAMINATION: US SCROTUM CLINICAL INFORMATION: Question abscess formation/epididymitis/cellulitis of scrotum.. COMPARISON: None available. TECHNIQUE: A sonogram of the scrotum was performed assessing martinez-scale appearance and color Doppler flow. Spectral Doppler analysis of the arterial and venous flow were performed in the testes bilaterally. FINDINGS: RIGHT: Right testicle measures 3.2 x 2.4 x 2.4 cm, volume 9.5 mL. No focal testicular parenchymal lesions are visualized. Spectral Doppler analysis of the arterial and venous flow is normal in the right testis. Right epididymal head is normal in size. There is moderate to large hydrocele. No varicocele is seen. Right epididymal Doppler flow is normal. LEFT: Left testicle measures 2.7 x 2 0.0, 2.0 cm, volume 2.8 mL. No focal testicular parenchymal lesions are visualized. Spectral Doppler analysis of the arterial and venous flow is normal in the left testis. Left epididymal head is normal in size. There is a large anechoic cyst with mobile echogenic debris likely spermatocele. There is moderate left. No varicocele is seen. Left epididymal Doppler flow is normal. There is bilateral significant tenderness and skin thickening/edema measuring 0.9 cm on the right hemiscrotum and 0.7 cm and left hemiscrotum. IMPRESSION: 1. Bilateral moderate to large hydroceles. 2. Large left spermatocele with echogenic debris. 3. Bilateral scrotal wall thickening 4. Both testes are normal with normal Doppler exam. Date of Service: 10/21/23 EXAMINATION: XR URETHROCYSTOGRAPHY CLINICAL INFORMATION: Concern for fistula from bladder to scrotum COMPARISON: None available. Correlation made with CT abdomen and pelvis 10/17/2023. TECHNIQUE: Contrast was administered via the patient's superpubic tube. Multiple spot films were then performed FINDINGS: No fistula is seen in the bladder to the scrotum, or elsewhere. There appears to be a benign-appearing stricture of the bulbous urethra terminating at the penile urethra. FLUOROSCOPY TIME: 2 minutes 13 seconds DOSE AREA PRODUCT: 2163 uGy-m2 (microgray-meter squared) IMPRESSION: 1. No evidence of fistula between the bladder and scrotum. 2. 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 Assessment and Plan (1) Acute UTI: Status: Acute (2) Acute kidney injury superimposed on CKD: Status: Acute (3) Cellulitis of scrotum: Status: Acute Plan Continue IV Abx No evidence of scrotal abscess, Keep scrotum elevated on small towel to help with dependent edema I will change SP tube catheter at bedside durint this admission Procedures Date of Service Date of Service: 11/12/23
[2023-11-12] MEDS: cefTRIAXone sodium 1 GM in 0.9 % Sodium Chloride 50 ML IV (11:05)
--- NOTE | 2023-11-12 13:32 | MHC.CM.PN ---
IMM 11/10/23 Per MD rounds no DC today. is scheduled to consult and change suprapubic catheter today. Discharge is anticipated tomorrow. DP return to HS via BLS.
[2023-11-12 14:30] VITALS: BP 144/66; PULSE 73; RESP 18; TEMP 36.7; O2SAT 94
[2023-11-12 14:52] VITALS: BMI 32.2
--- NOTE | 2023-11-12 15:01 | MHC.CLN ---
NUTRITION PATIENT WITH INCREASED NUTRITION NEEDS DUE TO STAGE II PRESSURE INJURY TO LEFT SACRUM. DIET=REGULAR. ADDING ENSURE MAX BID TO PROMOTE WOUND HEALING. SUPPLEMENT PROVIDES 300 KCALS, 60 G PROTEIN. INTAKE AT MEALS VARIABLE, 25-100%. MONITOR PO INTAKE, ENCOURAGE SUPPLEMENTS, AND FOLLOW FOR WOUND HEALING. SEE CLINICAL NUTRITION ASSESSMENT 11/12/23.
[2023-11-12] MEDS: oxyCODONE HCl Immed Release 5 MG TABLET PO ×2 (15:05→21:23)
--- NOTE | 2023-11-12 15:37 | W.PM.IDCN ---
History of Present Illness Data of Consult Service Date: 11/12/23 Requesting physician: Kareem Purcell Primary Care Provider: Shon Brown MD [facility] Reason for consult: scrotal cellulitis reported,bacteriuria He presents after referral from Dr Brown who is PCP at [facility]. He is an [employer] . He had penile wound and has packing and was reported to have redness and swelling penis area. He has reported cloudy urine and no hematuria,fever,dysuria or abdominal pain. He has providencia and Pseudomonas reported. WBC 11.9. Review of Systems Review of Systems: Yes all other systems are reviewed and are negative [facility] Past Medical History Medical History (Updated 11/12/23 @ 15:44 by Tana Lei MD) Bacteriuria Cellulitis of scrotum PONV (postoperative nausea and vomiting) Cardiomyopathy COVID-19 vaccine series completed Depression Venous insufficiency Dysphagia senior living resident Carbuncle of gluteal region C. difficile colitis Left bundle branch block Spinal stenosis Urine retention Osteoarthritis Benign prostate hyperplasia Hypertension CKD (chronic kidney disease) stage 3, GFR 30-59 ml/min CHF (congestive heart failure) Type 2 diabetes mellitus Atrial fibrillation Family History Family History Other No family history of cardiovascular disease Family history: reviewed and not pertinent Surgical History Surgical History History of incision and drainage History of ligation of vein H/O spinal fusion Social History Social History Household Members: Other Household Members Other:: [facility] Housing: [facility] Housing Other:: [facility] Are you a primary neonatal intensive care nurse to a significant other at home: No Do you presently have visiting nurse or other home services: Yes (SNF) Unable to assess alcohol history related to: Unknown Alcohol intake: never Comment: resting in bed, eyes closed Patient Tobacco Use Status: Former Tobacco user Smoked in Last 30 Days: No Use of substances other than those prescribed or required for medical reasons: No Currently Displaying Signs/Symptoms of Drug Intoxication Withdrawal: No Have you been hit, kicked, punched, or otherwise hurt by someone within the past year? If so, by whom?: No Do you feel safe in your current relationship?: No Current Relationship Is there a partner from a previous relationship who is making you feel unsafe now?: No Are you made to feel afraid or neglected: No Advance Directives: Yes Advance Directives on File: Yes Advance Directives Date on File: 10/17/23 Do you have thoughts of harming others: None Do you have a plan to hurt others: No Plan Recently lost weight without trying: No Nutrition Risks: No Nutritional Risk service: Yes Current occupational status: retired Meds Allergies Allergy/AdvReac Type Severity Reaction Status Date / Time codeine AdvReac Intermediate Vomiting Verified 08/01/23 13:54 morphine AdvReac Intermediate Vomiting Verified 08/01/23 13:54 Active Medications: Current Medications Acetaminophen (Acetaminophen 325 Mg Tablet) 650 mg PO Q6H PRN PRN Reason: Pain, Mild (Pain Scale 1-3) Apixaban (Apixaban 2.5 Mg Tablet) 2.5 mg PO BID [facility] Escitalopram Oxalate (Escitalopram Oxalate 20 Mg Tablet) 20 mg PO DAILY [facility] Fluticasone Propionate (Fluticasone Propionate Nasal 16 Gm [place]) 1 spray NOSTRIL-B DAILY [facility] Piperacillin Sod/Tazobactam (Sod 2.25 gm/ Sodium Chloride) 50 mls @ 100 mls/hr IV Q6H [facility] Last Admin: 11/12/23 15:05 Dose: 100 mls/hr Ceftriaxone Sodium 1 gm/ (Sodium Chloride) 50 mls @ 100 mls/hr IV Q24H [facility] Last Infusion: 11/12/23 11:48 Dose: Infused Mirabegron (Mirabegron 50 Mg Tab.Er.24h) 50 mg PO DAILY [facility] Multivitamins/Vitamin C (Multivitamin Tablet) 1 tab PO DAILY [facility] Ondansetron HCl (Ondansetron Hcl 4 Mg/2 Ml Vial) 4 mg IVPUSH Q8H PRN PRN Reason: Nausea and Vomiting Oxycodone HCl (Oxycodone Hcl Immed Release 5 Mg Tablet) 5 mg PO Q6H PRN PRN Reason: Pain, Severe (Pain Scale 7-10) Last Admin: 11/12/23 15:05 Dose: 5 mg Oxycodone HCl (Oxycodone Hcl Immed Release 5 Mg Tablet) 10 mg PO BID [facility] Pharmacy Consult (Consult Rx Vancomycin Dosing) 1 each MISCELLANE DAILY PRN PRN Reason: Consult order Sodium Chloride (0.9 % Sodium Chloride Flush 3 Ml Syringe) [facility] Last Admin: 11/12/23 15:03 Dose: 3 ml Home Medications Medication Instructions Recorded Confirmed Last Taken Type acetaminophen 325 mg tablet 650 mg PO Q4H PRN Pain 12/17/20 11/09/23 12/20/21 History cyanocobalamin (vitamin B-12) 1,000 mcg PO DAILY 12/17/20 11/09/23 11/09/23 History 1,000 mcg tablet escitalopram oxalate 10 mg tablet 20 mg PO DAILY 12/17/20 11/09/23 11/09/23 History fluticasone propionate 50 1 spray intranasal DAILY 12/17/20 11/09/23 11/09/23 History mcg/actuation nasal spray,suspension multivitamin 1 tab PO DAILY 12/17/20 11/09/23 11/09/23 History oxycodone 5 mg tablet 10 mg PO BID 12/17/20 11/09/23 11/09/23 History oxycodone 5 mg tablet 10 mg PO Q6H PRN Pain 12/17/20 11/09/23 Unknown History apixaban 2.5 mg tablet 2.5 mg PO BID 08/17/21 11/09/23 11/09/23 History calcium polycarbophil 625 mg tablet 625 mg PO BID 10/17/23 11/09/23 11/09/23 History lidocaine 4 % topical patch 1 patch topical DAILY 10/17/23 11/09/23 11/09/23 History mirabegron 50 mg tablet,extended 50 mg PO DAILY 10/17/23 11/09/23 11/09/23 History release 24 hr ondansetron 4 mg disintegrating 4 mg PO Q6H PRN Nausea 10/17/23 11/09/23 Unknown History tablet Physical Exam Vital Signs: Vital Signs: Last Vital Signs Temp 98.1 F 11/12/23 14:30 Pulse 73 11/12/23 14:30 Resp 18 11/12/23 14:30 BP 144/66 H 11/12/23 14:30 Pulse Ox 94 11/12/23 14:30 O2 Del Method Room Air 11/12/23 14:30 BMI result Body Mass Index 32.2 Const: General: cooperative HEENT: Head: Yes normal to inspection Face and sinus: Yes normal facial exam Mouth: Normal oral and palatal mucosa present Teeth and gingiva: dentition normal Eyes: General: appearance normal, both eyes and all related structures Pupils: Equal, round and reactive pupils present Resp: Effort & Inspection: normal respiratory effort Cardio: Rate: regular rate Rhythm: regular rhythm GI: Palpation (GI): Soft to palpation and nontender : Other: open wound posterior penis,with packing clean no penile cellulitis,slt balanitis with fungal skin involvement perineum liquid dark stool General: Yes no CVA tenderness Back/Spine/Pelvis: Back: no CVA tenderness Skin: Other: dark lower extremities,probable venous stasis Neuro: General: moves all extremities Cranial nerves: Yes Equal, round and reactive pupils present Extrem: General: Yes normal to inspection Psych: Appearance: grossly normal Results Labs 11/11/23 05:17 11/12/23 05:14 Labs: BMP 11/12/23 05:14 Sodium 142 Potassium 3.4 Chloride 108 Carbon Dioxide 26 BUN 13 Creatinine 0.94 Calcium 8.3 L Microbiology Microbiology Results: Microbiology 11/09/23 Unknown Urine Other - Suprapubic Urine Culture - Final Providencia stuartii Pseudomonas aeruginosa 11/09/23 13:54 Blood - Venous Blood Culture - Preliminary No growth after 48 hours. 11/09/23 13:44 Blood - Venous Blood Culture - Preliminary No growth after 48 hours. Assessment and Plan (1) Bacteriuria: Status: Acute No signs of active urine infection per HPI. 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 No treatment. (2) Cellulitis of scrotum: Status: Acute Has resolved with IV Vancomycin even though po Doxycycline didnt seem to help?absorption. Can likely finish with one week po Doxycycline.
--- NOTE | 2023-11-12 16:23 | HO.WOUND ---
Wound Consult: Initial 83yr old?M admitted to [facility] on 06/24 - See progress notes and H&P for detailed history.? Wound consult placed for scrotum and sacrum.? Patient agreeable to assessment and photo documentation.? Scrotum assessed and noted for induration and swelling - opening noted - TT with Dr. Redd aware of wound and agrees with topical recommendations - Urology will continue to follow patient Etiology: ??Unknown Etiology 0 Urology following Measurements: 0.5cm x 0.5cm x 10cm Wound Bed: Unable to visualize wound bed Drainage / Odor: [place] and clear pink tinged fluid - no odor noted Edges: ? unattached Prisca wound: Firm Induration, swelling and mild warmth noted Pain: Pt reports pain Goals of Treatment: ? Light packing to keep channel open and draining and cover dressing for exudate absorption Right Sacrum Etiology: Stage 2 Pressure Injury POA Wound Bed: scattered red pink moist wound bed over bony sacrum Periwound: Red maroon purple blanchable tissue throughout - consistent with chronic moisture Recommendations: 1. Turn and Reposition every 2 hours and as needed for patient comfort.? Use pillows or wedges to support off loading positions. 2. Off Load all bony prominences with use of pillows and heel boots if needed.? Apply Preventative foams where needed. ? 3. Monitor for incontinence and moisture control, use barrier creams when needed for prevention and treatment. 4. Provide adequate and supplemental nutrition - nutrition following. 5. Order or Continue low air loss mattress. 6. When applicable maintain blood glucose levels per Providers order. 7. Scrotum - Cleanse with NS, Apply skin prep wipe to periwound. Cut packing strip 5-7 cm in length lightly pack approximately 2cm just to keep wound open to allow for drainage - be sure to leave wick for easy removal. Cover with foam dressing or abd pad and mesh underwear. Change daily. 8. Right Sacrum - Off Load Pressure - Cleanse with PH balance spray or wipes, pat dry. ?Apply thin layer of Triad to wound bed. Do not remove all of paste between applications as this may cause further skin damage.? Cover with foam dressing to aid in off loading and protection from friction. If unable to cover with foam due to incontinence may use Triad alone without cover dressing. Change Daily and PRN. Re-consult wound care Nurse for wound deterioration or wound changes.
[2023-11-12] MEDS: Apixaban 2.5 MG TABLET PO (18:56)
[2023-11-12] MEDS: oxyCODONE HCl Immed Release 5 MG TABLET 10 MG PO (18:57)
[2023-11-12 19:42] VITALS: BP 124/59; PULSE 67; RESP 19; TEMP 36.8; O2SAT 92
[2023-11-12 20:03] LABS: Vancomycin Random 12.6 mcg/mL (15-20)
[2023-11-13] MEDS: Piperacillin Sodium/Tazobactam 2.25 GM in 0.9 % Sodium Chloride 50 ML IV ×2 (03:50→10:13)
[2023-11-13 03:58] VITALS: BP 131/61; PULSE 70; RESP 18; TEMP 36.3; O2SAT 95
[2023-11-13 07:31] VITALS: BP 123/58; PULSE 63; RESP 20; TEMP 36.3; O2SAT 92
[2023-11-13] MEDS: Apixaban 2.5 MG TABLET PO (08:52)
[2023-11-13] MEDS: oxyCODONE HCl Immed Release 5 MG TABLET 10 MG PO (08:52)
[2023-11-13] MEDS: Multivitamin TABLET 1 TAB PO (08:52)
[2023-11-13] MEDS: Mirabegron 50 MG TAB.ER.24H PO (08:52)
[2023-11-13] MEDS: Escitalopram Oxalate 20 MG TABLET PO (08:52)
[2023-11-13] MEDS: cefTRIAXone sodium 1 GM in 0.9 % Sodium Chloride 50 ML IV (08:55)
[2023-11-13] MEDS: 0.9 % Sodium Chloride Flush 3 ML SYRINGE IVFLUSH (08:55)
[2023-11-13 09:05] LABS: Creatinine Clr Calc Pharmacy 78.7; Estimated Glomerular Filt Rate > 60
--- NOTE | 2023-11-13 11:52 | MHC.CM.PN ---
Patient is discharged today. He will return to [facility]. The facility has been notified of discharge. Ameya Martell the mine supervisor was contacted. He provided contact info for the Nurse 2 Nurse report. The RN has called the report to the floor nurse. 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 The patients HCP Allyson has been notified of the discharge too.
--- NOTE | 2023-11-13 11:53 | P.DS_ITS ---
DS: Providers Provider Date of Service: 11/13/23 Date of admission: 11/09/23 15:19 Primary care physician: Shon Brown MD Consults: 11/09/23 15:19 Consult to Urology Routine Consulting Provider: Deondre Redd Reason for consultation: Scrotal swelling and erythema, UTI on suprapubic cath for your eval. 11/09/23 21:48 Consult to Wound Care Routine Reason for consultation: BL buttock redness/ scrotal cellulitis/ulcer, questioning DTI left buttock, 11/12/23 09:52 Consult to Infectious Diseases Routine Consulting Provider: [facility] Infectious Disease Reason for consultation: MDR Pseudomonas UTI\skin infx for your kind eval. DS: Diagnosis Discharge Diagnosis (1) Bacteriuria: Status: Acute (2) Cellulitis of scrotum: Status: Acute (3) Acute kidney injury superimposed on CKD: Status: Acute DS: Summary Hospital Course Hospital Course: Admission note HPI An 83 years old male with PMH of PAF, CKD3, DM2, chronic back pain among others who [facility] as he still complaining of scrotal erythema and swelling. He was recently discharged from the hospital on Augmentin and Doxycycline. he improved initially then started to swollen and becoming erythematous on color with reported discomfort and pain. He also reports lower abdominal pain. No chest pain, palpitations, SOB, nausea, vomiting, diarrhea or fever. In ED he was started on IV Vancomycin. Admitted for further evaluation and treatment. Hospital course # Scrotal cellulitis and edema failed outpatient antibiotics . US scrotum did not show any abscesses. Treated with IV Zosyn, Vancomycin and Ceftriaxone. ID evaluated the patient and recommended short term antibiotics of Doxycycline on discharge. It seems the erythema can be chemical irritation from exposure to stool as patient was noted to have diarrhea. try to support scrotum and keep the area clean. Evaluated by wound team who Packed a small puncture wound on the base of scrotum. continue packing every 1-2days as outpatient. # Bacterurea in relation to suprapubic cath Urine cultures growing MDR Providencia and Pseudomonas. Treated with IV antibiotics. ID recommended to stop antibiotics as both microbes are colonization. URologist evaluated the patient and changed the suprapubic catheter but recommended no intervention re scrotum problem. # JAZLYN on CKD3 Cr was elevated on admission. improved to baseline by holding nephrotoxic medications and IVF. Continue wound care and packing the scrotal wound as explained Continue antibiotics Keep scrotum supported and clean Time Attestation Discharge coordination time: Greater than 30 minutes Quality: Safe Use of Opioids Does Pt have an Active Cancer Diagnosis on the Problem List?: No Quality: Stroke Does the patient have a stroke diagnosis?: No Physical Exam Vital Signs: Vital Signs: Last Vital Signs Temp 97.3 F 11/13/23 07:31 Pulse 63 11/13/23 07:31 Resp 20 11/13/23 07:31 BP 123/58 L 11/13/23 07:31 Pulse Ox 92 11/13/23 07:31 O2 Del Method Room Air 11/13/23 07:31 BMI result Body Mass Index 32.2 Const: Other: Constitutional : Awake, interactive, not in distress Neck : Normal inspection, Supple Cardiovascular : RRR, no JVP, no lower extremity edema Respiratory : good bilateral air entry, no crackles, wheezes or rhonchi Gastrointestinal: soft, lax, Normal bowel sounds, Non tender Skin : Warm, Dry, Uro: subrapubic cath in place, decreased scrotal swelling and erythema, Packed small puncute midline scrotum Neurological : Alert & oriented to self and place, No focal deficit DS: Data Data Completed and Pending Completed studies during hospitalization [Text1]: Procedures Drainage of Inguinal Skin, External Approach (12/17/20) Fluoroscopy of Bladder and Urethra using Low Osmolar Contrast (10/17/23) Labs on day of discharge: Laboratory Results - last 24 hr 11/12/23 11/13/23 19:30 08:24 Hold Purple Top SEE NOTE Creatinine 0.87 Estim Creat Clear Calc 78.7 Estimated GFR > 60 Random Vancomycin 12.6 L Preliminary micro results at discharge 11/09/23 13:54 Blood Culture - Preliminary Blood - Venous No growth after 48 hours. 11/09/23 13:44 Blood Culture - Preliminary Blood - Venous No growth after 48 hours. Imaging US - abdomen: Radiologist's impression: ITS Impressions Scrotum Ultrasound 11/11/23 09:40 IMPRESSION: 1. Bilateral moderate to large hydroceles. 2. Large left spermatocele with echogenic debris. 3. Bilateral scrotal wall thickening 4. Both testes are normal with normal Doppler exam. Discharge Plan Discharge Anticipated Discharge Date/Time: 11/13/23 10:51 Patient Disposition: Xfer SNF Discharge Diagnosis: Scrotal cellulitis Referrals: Shon Brown MD [Primary Care Provider] - 1 Week Discharge Medications: Continued multivitamin Tablet 1 tab PO DAILY cyanocobalamin (vitamin B-12) 1,000 mcg Tablet 1,000 mcg PO DAILY fluticasone propionate 50 mcg/actuation [place],Suspension 1 spray INTRANASAL DAILY oxycodone 5 mg Tablet 10 mg PO BID oxycodone 5 mg Tablet 10 mg PO Q6H PRN (Reason: Pain) escitalopram oxalate 10 mg Tablet 20 mg PO DAILY acetaminophen 325 mg Tablet 650 mg PO Q4H PRN (Reason: Pain) apixaban 2.5 mg Tablet 2.5 mg PO BID lidocaine 4 % Adhesive Patch,Medicated 1 patch TOPICAL DAILY calcium polycarbophil 625 mg Tablet 625 mg PO BID ondansetron 4 mg Tablet,Disintegrating 4 mg PO Q6H PRN (Reason: Nausea) mirabegron 50 mg Tablet Extended Release 24 Hr 50 mg PO DAILY doxycycline hyclate 100 mg tablet 100 mg PO BID 8 Days Qty: 14 0RF ascorbic acid (vitamin C) 1,000 mg tablet 1 g PO DAILY 90 Days Qty: 90 1RF methenamine hippurate 1 gram tablet 1 g PO DAILY 90 Days Qty: 90 1RF Discontinued amoxicillin-pot clavulanate [Augmentin] 500-125 mg tablet 1 tab PO BID 8 Days Qty: 16 0RF Discharge Orders: Discharge Order (Routine); Ordered 11/13/23 Ordered By: Kareem Purcell Diet: Advance to usual diet Activity on Discharge: As tolerated Stand Alone Forms: Patient Portal Discharge page Activity Restrictions/Additional Instructions: 1. Turn and Reposition every 2 hours and as needed for patient comfort.? Use pillows or wedges to support off loading positions. 2. Off Load all bony prominences with use of pillows and heel boots if needed.? Apply Preventative foams where needed. ? 3. Monitor for incontinence and moisture control, use barrier creams when needed for prevention and treatment. 4. Provide adequate and supplemental nutrition - nutrition following. 5. Order or Continue low air loss mattress. 6. When applicable maintain blood glucose levels per Providers order. 7. Scrotum - Cleanse with NS, Apply skin prep wipe to periwound. Cut packing strip 5-7 cm in length lightly pack approximately 2cm just to keep wound open to allow for drainage - be sure to leave wick for easy removal. Cover with foam dressing or abd pad and mesh underwear. Change daily. 8. Right Sacrum - Off Load Pressure - Cleanse with PH balance spray or wipes, pat dry. ?Apply thin layer of Triad to wound bed. Do not remove all of paste between applications as this may cause further skin damage.? Cover with foam dressing to aid in off loading and protection from friction. If unable to cover with foam due to incontinence may use Triad alone without cover dressing. Change Daily and PRN. Care Plan Goals: Read below Health Concerns: Read below Plan of Treatment: Read below Assessment: Continue wound care and packing the scrotal wound as explained Continue antibiotics Keep scrotum supported and clean
--- NOTE | 2023-11-13 13:07 | P.PNUR_ITS ---
Subjective Subjective Date of Service: 11/13/23 Physical Exam 2 Vital Signs: Vital Signs: Last Vital Signs Temp 97.3 F 11/13/23 07:31 Pulse 63 11/13/23 07:31 Resp 20 11/13/23 07:31 BP 123/58 L 11/13/23 07:31 Pulse Ox 92 11/13/23 07:31 O2 Del Method Room Air 11/13/23 07:31 BMI result Body Mass Index 32.2 Urology Results Labs 11/11/23 05:17 11/13/23 08:24 Labs: Laboratory Results - last 24 hr 11/12/23 11/13/23 19:30 08:24 Hold Purple Top SEE NOTE Creatinine 0.87 Estim Creat Clear Calc 78.7 Estimated GFR > 60 Random Vancomycin 12.6 L Progress Note: A&P Time Spent With Patient Time: Total time managing care of this patient today ____ minutes. Progress Note: Quality Stroke Does the patient have a stroke diagnosis?: No Bladder/Catheter Procedure Details: 18 fr catheter placed 10 mL placed in the balloon. The SP tube catheter was removed. Under sterile technique an 18 Bengali catheter was passed into the cystotomy site, pink tinged urine drained, no clots [id number] Cystotomy Tube, complicated Procedure code (CPT) selection complete
== END 2023-11-13 13:08 | disposition skilled nursing facility (03) | DRG 728 ==
LOC: HO.ED 15:11 → HO.EDOVER 15:42 → HO.S3 16:47
PROVIDERS: Admitting Provider Student in an Organized Health Care Education/Training Program; Emergency Provider Emergency Medicine; PCP Internal Medicine Medical Oncology; Visit Provider Student in an Organized Health Care Education/Training Program
DX: N49.2 Inflammatory disorders of scrotum (principal); N17.9 Acute kidney failure, unspecified; N18.30 Chronic kidney disease, stage 3 unspecified; E11.22 Type 2 diabetes mellitus with diabetic chronic kidney disease; I87.8 Other specified disorders of veins; D63.1 Anemia in chronic kidney disease; I48.0 Paroxysmal atrial fibrillation; M54.9 Dorsalgia, unspecified; G89.29 Other chronic pain; Z87.891 Personal history of nicotine dependence; Z98.1 Arthrodesis status; Z79.01 Long term (current) use of anticoagulants; Z79.899 Other long term (current) drug therapy
CPT/HCPCS: 36415; 51710; 76870; 80048; 80076; 80202; 81001; 82565; 82947; 83605; 85007; 85025; 85027; 87040; 87070; 87077; 87086; 87088; 87186; 87205; 99285; C1758; J0696; J2543; J3370; J3371

== ENCOUNTER 2023-11-09 12:15 | Outpatient (REF) | payer MEDICARE, SELFPAY | END 2023-11-09 12:16 | disposition home or self-care (01) | LOC: HO.HSH3E 12:15 | PROVIDERS: Visit Provider Internal Medicine Medical Oncology | DX: Z13.89 Encounter for screening for other disorder (principal) | CPT/HCPCS: 87040 ==

== ENCOUNTER → 2023-11-09 14:02 | Outpatient (BNV) | payer MEDICARE, SELFPAY | PROVIDERS: Emergency Provider Emergency Medicine; PCP Internal Medicine Medical Oncology; Visit Provider Student in an Organized Health Care Education/Training Program | DX: R82.71 Bacteriuria (principal); N49.2 Inflammatory disorders of scrotum; N17.9 Acute kidney failure, unspecified; N18.30 Chronic kidney disease, stage 3 unspecified | CPT/HCPCS: 99223; 99232; 99233; 99238 ==

== ENCOUNTER → 2023-11-09 15:19 | Outpatient (BNV) | payer MEDICARE, SELFPAY | PROVIDERS: Admitting Provider Student in an Organized Health Care Education/Training Program; Emergency Provider Emergency Medicine; PCP Internal Medicine Medical Oncology; Visit Provider Urology | DX: Z96.0 Presence of urogenital implants (principal) | CPT/HCPCS: 51705; 99222 ==

== ENCOUNTER → 2023-11-09 15:19 | Outpatient (BNV) | payer MEDICARE, SELFPAY | PROVIDERS: Admitting Provider Student in an Organized Health Care Education/Training Program; Emergency Provider Emergency Medicine; PCP Internal Medicine Medical Oncology; Visit Provider Internal Medicine | DX: R82.71 Bacteriuria (principal); N49.2 Inflammatory disorders of scrotum | CPT/HCPCS: 99222 ==

== ENCOUNTER 2023-11-29 14:41 | Outpatient (REF) | payer MEDICARE, SELFPAY | END 2023-11-29 14:42 | disposition home or self-care (01) | LOC: HO.HSH3E 14:41 | PROVIDERS: Visit Provider Internal Medicine Medical Oncology | DX: L03.90 Cellulitis, unspecified (principal) | CPT/HCPCS: 87070; 87077; 87186; 87205 ==

== ENCOUNTER 2023-12-12 12:12 | Outpatient (AMB) | payer MEDICARE, SELFPAY ==
--- NOTE | 2023-12-12 12:12 | A.OFFVIS_ITS ---
Intake Intake Visit Reasons: follow Up after ED discharge Intake Note: Patient presents today for [facility] follow up for scrotal swelling with erythema and uti suprapubic catheter Urology Medications: Methenamine, Myrbetriq Antibiotic Allergy: None Blood Thinner: Apixaban Classroom Instructional Aide Required: No Accompanied by: Self / Same As Patient Allergies codeine Adverse Reaction (Intermediate, Verified 12/12/23 12:17) Vomiting morphine Adverse Reaction (Intermediate, Verified 12/12/23 12:17) Vomiting HPI HPI Comments History of Present Illness Details Clarence is an 83 year old male [facility] He has a past medical history of cellulitis of the scrotum, cardiomyopathy with an EF of 25-30%, depression, venous insufficiency, dysphagia, spinal stenosis, urinary retention, osteoarthritis, hypertension, chronic kidney disease stage 3, congestive heart failure, type 2 diabetes, and atrial fibrillation. He is being followed up on today for his neurogenic bladder as well as scrotal cellulitis. In review of patient's chart it appears he was hospitalized approximately 1 month ago for urinary tract infection in relation to suprapubic catheter and scrotal cellulitis at which time he was treated with IV Zosyn, vancomycin, and ceftriaxone, recommendations were made for short term antibiotic of doxycycline to be completed outpatient. SPT was changed at bedside by Dr Sky while inpatient. He has since completed antibi otic therapy. [facility] staff continue with wound care to small puncture wound at the base of the scrotum. Wound care provided at today's visit. No drainage or exudate noted from scrotal puncture. He did however have white discharge to phimosis. Otherwise no redness or open areas noted. Suprapubic site appears dry, no exudate or redness noted. Suprapubic tube draining clear yellow urine. He does report abdominal pain throughout today's visit however it appears this is his baseline. He otherwise denies any urological issues or concerns. Neurogenic bladder with some spasticity Suprapubic tube in place - placed 2020 Clear draining urine On Myrbetriq for spasm Has catheter drainage during day q.4 hours, uses overnight bag Continue on vitamin-C 1000 mg methenamine daily to minimize colonization Continue catheter exchange every 6 weeks. Rate limiting factor will be incrustation on catheter [facility] Medical History Bacteriuria Cellulitis of scrotum PONV (postoperative nausea and vomiting) Cardiomyopathy COVID-19 vaccine series completed Depression Venous insufficiency Dysphagia [facility] resident Carbuncle of gluteal region C. difficile colitis Left bundle branch block Spinal stenosis Urine retention Osteoarthritis Benign prostate hyperplasia Hypertension CKD (chronic kidney disease) stage 3, GFR 30-59 ml/min CHF (congestive heart failure) Type 2 diabetes mellitus Atrial fibrillation Surgical History History of incision and drainage History of ligation of vein H/O spinal fusion Family History Other No family history of cardiovascular disease Social History Household Members: Other Household Members Other:: [facility] Housing: Long Term Housing Other:: [place] [facility] Are you a primary palliative care specialist to a significant other at home: No Do you presently have visiting nurse or other home services: Yes (SNF) Unable to assess alcohol history related to: Unknown Alcohol intake: never Comment: resting in bed, eyes closed Patient Tobacco Use Status: Former Tobacco user Advance Directives Date on File: 10/17/23 service: Yes Current occupational status: retired Review of Systems Const Reports as per HPI Eyes Reports no additional complaints ENT Reports no additional complaints Card Reports as per HPI Resp Reports as per HPI GI Reports as per HPI Reports as per HPI Musc Reports as per HPI Neuro Reports as per HPI Endo Reports as per HPI Uriel/Lymph Reports no additional complaints Aller/Immun Reports no additional complaints Physical Exam Const General: cooperative, no acute distress, well developed, alert and awake Nutritional Appearance: overweight Orientation/consciousness: oriented to person Limitations: other limitations (in bed) HEENT Head: Yes normal to inspection, Yes normocephalic and Yes atraumatic Ears: hearing grossly normal bilaterally Eyes General: appearance normal, both eyes and all related structures Neck Neck: Yes normal visual inspection and Yes trachea midline Chest Chest palpation & inspection: normal inspection of the chest Resp Effort & Inspection: normal respiratory effort and able to speak in complete sentences Cardio Rate: regular rate GI Inspection: Yes normal to inspection Male General Exam: Yes tenderness Penis: phimosis Scrotum: other (as per HPI) Testes: testicular tenderness bilateral Skin General skin exam: no rashes or lesions noted Neuro General: oriented to person Extrem General: Yes normal to inspection Psych Appearance: grossly normal and well kempt Mental Status: mental status grossly normal Speech and movement: Normal speech and movement present and Clear speech present Affect: normal affect Attitude: cooperative and Avoids eye contact (attititude/behavior) Insight: Fair insight present (Psych) Judgement: Fair judgement present (Psych) Assessment & Plan Assessment & Plan (1) Cellulitis of scrotum: Code(s): N49.2 - Inflammatory disorders of scrotum (2) Spastic neurogenic bladder: Code(s): N31.8 - Other neuromuscular dysfunction of bladder (3) Urine retention: Code(s): R33.9 - Retention of urine, unspecified Plan Wound care provided at today's visit. Continue to keep scrotum supported and clean. Continue wound care orders as prescribed. No drainage noted to suprapubic tube site and or scrotal wound Continue changing suprapubic tube every 6 weeks and or p.r.n. Follow-up in 3 months; or sooner with any issues, concerns, and or questions. Patient Instructions: The patient had an opportunity to ask questions regarding the treatment plan. All questions were answered. Physical exam, labs, and imaging were discussed and reviewed in detail. As well as risks, benefits, and discussion of treatment choices. No major barriers to understanding were identified. The patient expressed understanding and agreement with the above treatment plan. The patient was made aware they should contact our office by phone for worsening of their current condition, the appearance of new symptoms, or with any questions or concerns. Compliance is encouraged with any medications and follow up testing that is ordered. It is a privilege to be allowed the opportunity to participate in? your urological care.? Again, if you have any questions or concerns If you have any questions or concerns please do not hesitate to contact me. The office is [phone]. This note is constructed using voice recognition software. While every effort has been made to ensure accuracy correctional security officer errors may have been included. Yours sincerely, AKILA Ponce Coding Level of Care Code 31447-[id number] Fac initial, mod Diagnoses Cellulitis of scrotum N49.2 Spastic neurogenic bladder N31.8 Urine retention R33.9 Time Spent (min) 40
== END 2023-12-12 16:30 | disposition home or self-care (01) ==
LOC: HO.HUSV 12:12
PROVIDERS: PCP Internal Medicine Medical Oncology; Visit Provider Nurse Practitioner Family
DX: N49.2 Inflammatory disorders of scrotum (principal); N31.8 Other neuromuscular dysfunction of bladder; R33.9 Retention of urine, unspecified
CPT/HCPCS: 99305

== ENCOUNTER 2023-12-25 11:53 | Outpatient (REF) | payer MEDICARE, SELFPAY | END 2023-12-25 11:54 | disposition home or self-care (01) | LOC: HO.HSH3E 11:53 | PROVIDERS: Visit Provider Internal Medicine Medical Oncology | DX: N49.2 Inflammatory disorders of scrotum (principal) | CPT/HCPCS: 87070; 87077; 87186; 87205 ==

== ENCOUNTER 2024-01-22 09:36 | Outpatient (REF) | payer MEDICARE, SELFPAY | END 2024-01-22 09:37 | disposition home or self-care (01) | LOC: HO.HSH3E 09:36 | PROVIDERS: Visit Provider Internal Medicine Medical Oncology | DX: N18.9 Chronic kidney disease, unspecified (principal) | CPT/HCPCS: 87070; 87205 ==

== ENCOUNTER 2024-02-29 12:42 | Outpatient (REF) | payer MEDICARE, SELFPAY ==
[2024-02-29 13:30] LABS: Alanine Aminotransferase 11 U/L (0-40); Albumin Level 3.3 g/dL (3.5-5.0); Alkaline Phosphatase 62 U/L (39-117); Anion Gap 12 (12-20); Aspartate Amino Transferase 18 U/L (5-37); Bilirubin Total 0.3 mg/dL (0.0-1.0); Blood Urea Nitrogen 24 mg/dL (9-16); Calcium 9.1 mg/dL (8.4-10.2); Carbon Dioxide 27 mmol/L (22-29); Chloride 104 mmol/L (96-108); Estimated Glomerular Filt Rate 60; Glucose Random 93 mg/dL (60-115); Sodium 139 mmol/L (135-145); Total Protein 7.5 g/dL (6.5-8.0)
== END 2024-02-29 12:43 | disposition home or self-care (01) ==
LOC: HO.HSH3E 12:42
PROVIDERS: Visit Provider Internal Medicine Medical Oncology
DX: B34.2 Coronavirus infection, unspecified (principal)
CPT/HCPCS: 36415; 80053

== ENCOUNTER 2024-03-01 17:17 | Emergency (ER) | payer MEDICARE, SELFPAY ==
--- NOTE | ~2024-03-01 | XR_ITS ---
EXAMINATION: XR CHEST CLINICAL INFORMATION: Hypoxia, pneumonia and shortness of breath COMPARISON: Chest 06/22/2023 TECHNIQUE: Frontal view of the chest was obtained. FINDINGS: The lungs are somewhat expanded with increased interstitial markings in both lungs but no acute consolidation or pleural effusion. Heart size and pulmonary vascularity is normal. There is mild spondylosis dorsal spine.. XR/XR chest 1V IMPRESSION: Increased interstitial markings in both lungs question chronic changes, unchanged to previous study. There is no acute consolidation or pleural effusion.
--- NOTE | 2024-03-01 17:32 | ECG_ITS ---
Test Reason : SOB Blood Pressure : / mmHG Vent. Rate : 071 BPM Atrial Rate : 071 BPM P-R Int : 274 ms QRS Dur : 160 ms QT Int : 458 ms P-R-T Axes : 027 -11 014 degrees QTc Int : 497 ms Sinus rhythm with 1st degree A-V block Left bundle branch block Abnormal ECG When compared with ECG of 22-JUN-2023 14:45, Nonspecific T wave abnormality now evident in Anterior leads Referred By: Brooklyn Hoyt Electronically Signed By:BANDAR NESS
[2024-03-01 17:34] VITALS: BP 114/60; PULSE 76; RESP 20; TEMP 36.8; O2SAT 97; BMI 28.6
[2024-03-01 17:36] VITALS: BP 122/84; PULSE 64; O2SAT 96
[2024-03-01 18:22] LABS: Appearance Urine Turbid; Color Urine Yellow; Glucose Urine UA Negative (Negative); Leukocyte Esterase Urine Large (3+) (Negative); MANUAL DIFF FLAG NO; Nitrite Urine Positive (Negative); PH 5.5 (5.0-9.0); Specific Gravity - Urine 1.025 (1.005-1.025); UMIC TRIGGER UACC YES; Urine Blood Large (3+) (Negative); Urine Ketones Negative (Negative); Urine Protein 100 (2+) mg/dL (Neg-Trace)
[2024-03-01 18:24] LABS: Basophils Absolute Auto 0.1 X10*3/uL (0.0-0.2); Basophils Percent Auto 1.1 % (0-2); Eosinophils Absolute Auto 0.1 X10*3/uL (0.0-0.4); Eosinophils Percent Auto 1.8 % (0-4); Hematocrit 26.6 % (42.0-52.0); Hemoglobin 8.4 g/dl (14.0-18.0); Imm Gran Abs Auto 0.02 X10*3/uL (0.00-0.03); Imm Gran Pct Auto 0.4 % (0.0-0.4); Lymphocytes Absolute Auto 0.9 X10*3/uL (1.2-4.9); Lymphocytes Percent Auto 19.8 % (20-40); Mean Corpuscular HGB Conc 31.6 g/dl (31.0-36.0); Mean Corpuscular Hemoglobin 29.7 pg (27.0-33.0); Mean Platelet Volume 9.2 fL (9.4-12.4); Monocytes Absolute Auto 0.8 X10*3/uL (0.1-1.2); Monocytes Percent Auto 17.1 % (2-11); Neutrophils Absolute Auto 2.7 x10*3/uL (2.0-8.3); Neutrophils Percent Auto 59.8 % (45-73); Platelet Count 205 X10*3/uL (160-400); Red Blood Count 2.83 X10*6/uL (4.60-5.80); Red Cell Distribution Width 18.2 % (11.0-16.0); White Blood Count 4.5 X10*3/uL (4.8-10.8)
[2024-03-01 18:27] LABS: VBG Base Excess 3.9 mmol/L; VBG HCO3 29 mmol/L (22-26); VBG pCO2 50 mmHg; VBG pH 7.37 (7.32-7.43); VBG pO2 80 mmHg
[2024-03-01 18:30] LABS: Venous Blood Gas Refer to POC result
[2024-03-01 18:32] LABS: Bacteria Urine 4+ (None Seen); RBC Urine >20 /HPF (0-2); UACC Culture Trigger YES; WBC Urine >50 /HPF (0-5)
[2024-03-01 18:35] LABS: Lactic Acid 0.6 mmol/L (0.5-2.0)
--- NOTE | 2024-03-01 18:38 | ED.PEDSOB ---
HPI - Pediatric SOB/Dyspnea General Chief Complaint: Dyspnea Stated Complaint: SOB, dx pneumonia, sat 96% 4L Time Seen by Provider: 03/01/24 18:38 Related Data Home Medications ?Medication ?Instructions ?Recorded ?Confirmed acetaminophen 325 mg tablet 650 mg PO Q4H PRN Pain 12/17/20 11/09/23 cyanocobalamin (vitamin B-12) 1,000 mcg PO DAILY 12/17/20 11/09/23 1,000 mcg tablet escitalopram oxalate 10 mg tablet 20 mg PO DAILY 12/17/20 11/09/23 fluticasone propionate 50 1 spray intranasal DAILY 12/17/20 11/09/23 mcg/actuation nasal spray,suspension multivitamin 1 tab PO DAILY 12/17/20 11/09/23 oxycodone 5 mg tablet 10 mg PO BID 12/17/20 11/09/23 oxycodone 5 mg tablet 10 mg PO Q6H PRN Pain 12/17/20 11/09/23 apixaban 2.5 mg tablet 2.5 mg PO BID 08/17/21 11/09/23 calcium polycarbophil 625 mg tablet 625 mg PO BID 10/17/23 11/09/23 lidocaine 4 % topical patch 1 patch topical DAILY 10/17/23 11/09/23 mirabegron 50 mg tablet,extended 50 mg PO DAILY 10/17/23 11/09/23 release 24 hr ondansetron 4 mg disintegrating 4 mg PO Q6H PRN Nausea 10/17/23 11/09/23 tablet Previous Rx's ?Medication ?Instructions ?Recorded ascorbic acid (vitamin C) 1,000 mg 1 g PO DAILY 90 days #90 tabs 09/22/21 tablet methenamine hippurate 1 gram tablet 1 g PO DAILY 90 days #90 tabs 09/22/21 Allergies Allergy/AdvReac Type Severity Reaction Status Date / Time codeine AdvReac Intermediate Vomiting Verified 03/01/24 17:36 morphine AdvReac Intermediate Vomiting Verified 03/01/24 17:36 [facility] Past Medical History Medical History Bacteriuria Cellulitis of scrotum PONV (postoperative nausea and vomiting) Cardiomyopathy COVID-19 vaccine series completed Depression Venous insufficiency Dysphagia senior living resident Carbuncle of gluteal region C. 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 Housing: [facility] Housing Other:: [facility] Are you a primary animal caregiver to a significant other at home: No Do you presently have visiting nurse or other home services: Yes (SNF) Unable to assess alcohol history related to: Unknown Alcohol intake: never Comment: resting in bed, eyes closed Patient Tobacco Use Status: Former Tobacco user Advance Directives: Yes Advance Directives on File: Yes Advance Directives Date on File: 10/17/23 service: Yes Current occupational status: retired Medical Decision Making Lab Data 03/01/24 18:13 03/01/24 18:13 Labs: Lab Results 03/01/24 03/01/24 Range/Units 18:13 18:20 WBC 4.5 L (4.8-10.8) X10*3/uL RBC 2.83 L (4.60-5.80) X10*6/uL Hgb 8.4 L (14.0-18.0) g/dl Hct 26.6 L (42.0-52.0) % MCV 94.0 (80.0-98.0) fL MCH 29.7 (27.0-33.0) pg MCHC 31.6 (31.0-36.0) g/dl RDW 18.2 H (11.0-16.0) % Plt Count 205 (160-400) X10*3/uL MPV 9.2 L (9.4-12.4) fL Immature Gran % (Auto) 0.4 (0.0-0.4) % Neut % (Auto) 59.8 (45-73) % Lymph % (Auto) 19.8 L (20-40) % [place] % (Auto) 17.1 H (2-11) % Eos % (Auto) 1.8 (0-4) % Baso % (Auto) 1.1 (0-2) % Lymph # (Auto) 0.9 L (1.2-4.9) X10*3/uL [place] # (Auto) 0.8 (0.1-1.2) X10*3/uL Eos # (Auto) 0.1 (0.0-0.4) X10*3/uL Baso # (Auto) 0.1 (0.0-0.2) X10*3/uL Abs Immat Gran (auto) 0.02 (0.00-0.03) X10*3/uL Absolute Neuts (auto) 2.7 (2.0-8.3) x10*3/uL Absolute Nucleated RBC 0.000 (0.0-0.012) X10*3/uL Nucleated RBC % (auto) 0.0 (0.0-0.2) /100WBC VBG pH 7.37 (7.32-7.43) VBG pCO2 50 mmHg VBG pO2 80 mmHg VBG HCO3 29 H (22-26) mmol/L VBG O2 Saturation 95.0 % VBG Base Excess 3.9 mmol/L Lactic Acid 0.6 (0.5-2.0) mmol/L Urine Color Yellow Urine Appearance Turbid Urine pH 5.5 (5.0-9.0) Ur Specific [place] 1.025 (1.005-1.025) Urine Protein 100 (2+) H (Neg-Trace) mg/dL Urine Glucose (UA) Negative (Negative) mg/dL Urine Ketones Negative (Negative) mg/dL Urine Blood Large (3+) H (Negative) Urine Nitrite Positive H (Negative) Ur Leukocyte Esterase Large (3+) H (Negative) Urine RBC >20 H (0-2) /HPF Urine WBC >50 H (0-5) /HPF Ur Squamous Epith Cells 6-10 (0-2) /HPF Urine Bacteria 4+ (None Seen) Hyaline Casts 11-20 (0-2) /LPF Urine Yeast Present Discharge Plan Discharge Prescriptions: No Action multivitamin Tablet 1 tab PO DAILY cyanocobalamin (vitamin B-12) 1,000 mcg Tablet 1,000 mcg PO DAILY fluticasone propionate 50 mcg/actuation [place],Suspension 1 spray INTRANASAL DAILY oxycodone 5 mg Tablet 10 mg PO BID oxycodone 5 mg Tablet 10 mg PO Q6H PRN (Reason: Pain) escitalopram oxalate 10 mg Tablet 20 mg PO DAILY acetaminophen 325 mg Tablet 650 mg PO Q4H PRN (Reason: Pain) apixaban 2.5 mg Tablet 2.5 mg PO BID lidocaine 4 % Adhesive Patch,Medicated 1 patch TOPICAL DAILY calcium polycarbophil 625 mg Tablet 625 mg PO BID ondansetron 4 mg Tablet,Disintegrating 4 mg PO Q6H PRN (Reason: Nausea) mirabegron 50 mg Tablet Extended Release 24 Hr 50 mg PO DAILY ascorbic acid (vitamin C) 1,000 mg tablet 1 g PO DAILY 90 Days Qty: 90 1RF methenamine hippurate 1 gram tablet 1 g PO DAILY 90 Days Qty: 90 1RF Print Language: Palestinian
--- NOTE | 2024-03-01 18:44 | PC.NURSE ---
pt presents for evaluation for potential pneumonia- 20G iv placed in left forearm- lactic, cultures and labs obtained, urine obtained from SPC draining cloudy straw colored urine.- pt pending provider evaluation, call arguelles within reach
[2024-03-01 18:45] LABS: B Type Natriuretic Peptide 58 pg/mL (<100)
[2024-03-01 18:51] VITALS: BP 101/55; PULSE 72; RESP 16; TEMP 36.6; O2SAT 92
[2024-03-01 18:55] LABS: Albumin Level 3.3 g/dL (3.5-5.0); Alkaline Phosphatase 61 U/L (39-117); Anion Gap 12 (12-20); Aspartate Amino Transferase 24 U/L (5-37); Bilirubin Direct < 0.2 mg/dL (0.0-0.5); Bilirubin Total 0.2 mg/dL (0.0-1.0); Blood Urea Nitrogen 29 mg/dL (9-16); Calcium 9.2 mg/dL (8.4-10.2); Carbon Dioxide 26 mmol/L (22-29); Chloride 103 mmol/L (96-108); Creatinine Clr Calc Pharmacy 60.8; Estimated Glomerular Filt Rate 56; Glucose Random 82 mg/dL (60-115); Magnesium 2.1 mg/dL (1.6-2.6); Potassium 4.7 mmol/L (3.3-5.1); Sodium 136 mmol/L (135-145); Total Protein 7.5 g/dL (6.5-8.0)
[2024-03-01 19:05] LABS: Procalcitonin 0.06 ng/mL
--- NOTE | 2024-03-01 19:06 | ED.GENADULT ---
HPI - General Adult General Chief complaint: Dyspnea Stated complaint: SOB, dx pneumonia, sat 96% 4L Time Seen by Provider: 03/01/24 18:38 Source: patient, EMS, RN notes reviewed and old records reviewed Mode of arrival: EMS Limitations: no limitations History of Present Illness ED Provider: Esperanza Marquez NP HPI narrative: Patient is an 83-year-old male with history of cardiomyopathy, CHF with EF of 25-30%, T2DM, CKD stage 3, afib on eliquis, dysphagia, LBBB, spinal stenosis, suprapubic catheter presenting to the emergency department from the [facility] after an episode of feeling unwell. Staff reported to EMS that patient appeared ashen and was hypoxic. Patient denies any complaint, denies shortness of breath, chest pain, or palpitations. He was recently diagnosed with pneumonia and is on oxygen via nasal cannula. MD complaint: hypoxic episode Onset (ago): hour(s) Associated symptoms: denies other symptoms Treatments prior to arrival: none Related Data Home Medications ?Medication ?Instructions ?Recorded ?Confirmed acetaminophen 325 mg tablet 650 mg PO Q4H PRN Pain 12/17/20 11/09/23 cyanocobalamin (vitamin B-12) 1,000 mcg PO DAILY 12/17/20 11/09/23 1,000 mcg tablet escitalopram oxalate 10 mg tablet 20 mg PO DAILY 12/17/20 11/09/23 fluticasone propionate 50 1 spray intranasal DAILY 12/17/20 11/09/23 mcg/actuation nasal spray,suspension multivitamin 1 tab PO DAILY 12/17/20 11/09/23 oxycodone 5 mg tablet 10 mg PO BID 12/17/20 11/09/23 oxycodone 5 mg tablet 10 mg PO Q6H PRN Pain 12/17/20 11/09/23 apixaban 2.5 mg tablet 2.5 mg PO BID 08/17/21 11/09/23 calcium polycarbophil 625 mg tablet 625 mg PO BID 10/17/23 11/09/23 lidocaine 4 % topical patch 1 patch topical DAILY 10/17/23 11/09/23 mirabegron 50 mg tablet,extended 50 mg PO DAILY 10/17/23 11/09/23 release 24 hr ondansetron 4 mg disintegrating 4 mg PO Q6H PRN Nausea 10/17/23 11/09/23 tablet Previous Rx's ?Medication ?Instructions ?Recorded ascorbic acid (vitamin C) 1,000 mg 1 g PO DAILY 90 days #90 tabs 09/22/21 tablet methenamine hippurate 1 gram tablet 1 g PO DAILY 90 days #90 tabs 09/22/21 cefuroxime axetil 500 mg tablet 500 mg PO BID #14 tabs 03/01/24 Allergies Allergy/AdvReac Type Severity Reaction Status Date / Time codeine AdvReac Intermediate Vomiting Verified 03/01/24 17:36 morphine AdvReac Intermediate Vomiting Verified 03/01/24 17:36 Review of Systems Review of Systems: As per HPI. Yes all other systems are reviewed and are negative Neurologic: Denies Abnormal speech present [facility] Past Medical History Medical History Bacteriuria Cellulitis of scrotum PONV (postoperative nausea and vomiting) Cardiomyopathy COVID-19 vaccine series completed Depression Venous insufficiency Dysphagia prison resident Carbuncle of gluteal region C. 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 Housing: Longterm Housing Other:: [facility] Are you a primary managed care manager to a significant other at home: No Do you presently have visiting nurse or other home services: Yes (SNF) Unable to assess alcohol history related to: Unknown Alcohol intake: never Comment: resting in bed, eyes closed Patient Tobacco Use Status: Former Tobacco user Smoked in Last 30 Days: No Advance Directives: Yes Advance Directives on File: Yes Advance Directives Date on File: 10/17/23 Do you have a plan to hurt others: No Plan service: Yes Current occupational status: retired Physical Exam ED Vital Signs: Vital Signs - 24 hr 03/01/24 17:34 03/01/24 18:51 03/01/24 20:01 Temperature 98.2 F 97.8 F 97.7 F Pulse Rate 76 72 67 Respiratory Rate 20 16 18 Blood Pressure 114/60 101/55 L 101/59 L Pulse Oximetry 97 92 93 Oxygen Delivery Method Nasal Cannula Nasal Cannula Room Air Oxygen Flow Rate 4 BMI result Body Mass Index 28.6 Vital signs have been reviewed and appear to be correct. Blood pressure normal. Heart rate normal. Respiratory rate normal. Temperature normal. Oxygen saturation normal on arrival. Const General: no acute distress, alert and awake Nutritional Appearance: average body habitus Orientation/consciousness: patient oriented x3 HENMT Head: Yes normocephalic and Yes atraumatic Ears: hearing grossly normal bilaterally and external ears normal General nose exam: Normal external nose present Mouth: Normal oral and palatal mucosa present Throat: Yes uvula midline Eyes Pupils: Equal, round and reactive pupils present Neck Neck: Yes normal visual inspection, Yes no lymphadenopathy and Yes supple Chest Chest palpation & inspection: normal inspection of the chest and normal palpation of entire chest wall Resp Effort & Inspection: normal respiratory effort and able to speak in complete sentences Auscultation: diminished lung sounds diffuse Cardio Rate: regular rate Rhythm: regular rhythm Heart sounds: S1 normal heart sound present and S2 normal heart sound present GI Inspection: Yes other Palpation (GI): Soft to palpation and nontender Auscultation: normoactive bowel sounds Other: suprapubic urinary catheter in place, draining cloudy urine Skin General skin exam: elasticity normal and turgor normal Neuro General: patient oriented x3 and tone normal Cranial nerves: Yes Equal, round and reactive pupils present Cognition (Neuro): normal cognition Speech: No Abnormal speech present Extrem General: Yes capillary refill normal Psych Mental Status: mental status grossly normal Medical Decision Making Medical Decision Making MDM Narrative: Patient is an 83-year-old male with history of cardiomyopathy, CHF with EF of 25-30%, T2DM, CKD stage 3, afib on eliquis, dysphagia, LBBB, spinal stenosis, suprapubic catheter presenting to the emergency department from the [facility] after an episode of feeling unwell. On exam patient is awake, A+Ox3, VS WNL, afebrile, normal neurological exam without focal deficits, physical exam findings as above. Given reported symptoms and physical exam findings, initial differential includes worsening pneumonia, CHF exacerbation, electrolyte abnormality, UTI. Labs notable for no leukocytosis, chronic microcytic anemia, chronically elevated BUN, troponin of 9, will obtain repeat, no other significant electrolyte abnormalties. Repeat troponin flat. EKG shows sinus rhythm with 1st degree AV block, LBBB. X-ray notable for unchanged from prior study, no acute consolidation or effusion. My interpretation is in agreement with the radiologist's interpretation. Urinalysis notable for 3+ leukocytes, positive nitrites, 3+ blood, 4+ bacteria. Will treat for UTI at this time with cefuroxime. Feel patient is stable [facility]. Differential Diagnosis Differential Diagnoses: The differential diagnosis associated with the presentation includes As per [facility] Admission/Observation Consideration of admission/observation: Escalation of care including admission/observation considered Patient would have been admitted to the hospital had their work up had any findings where hospital admission was appropriate and their clinical presentation warranted hospital admission. Lab Data [facility] Lab Attestation statement: I reviewed the patient's lab results. as per [facility] 03/01/24 18:13 03/01/24 18:13 Labs: Lab Results 03/01/24 03/01/24 03/01/24 Range/Units 18:13 18:20 20:34 WBC 4.5 L (4.8-10.8) X10*3/uL RBC 2.83 L (4.60-5.80) X10*6/uL Hgb 8.4 L (14.0-18.0) g/dl Hct 26.6 L (42.0-52.0) % MCV 94.0 (80.0-98.0) fL MCH 29.7 (27.0-33.0) pg MCHC 31.6 (31.0-36.0) g/dl RDW 18.2 H (11.0-16.0) % Plt Count 205 (160-400) X10*3/uL MPV 9.2 L (9.4-12.4) fL Immature Gran % (Auto) 0.4 (0.0-0.4) % Neut % (Auto) 59.8 (45-73) % Lymph % (Auto) 19.8 L (20-40) % [place] % (Auto) 17.1 H (2-11) % Eos % (Auto) 1.8 (0-4) % Baso % (Auto) 1.1 (0-2) % Lymph # (Auto) 0.9 L (1.2-4.9) X10*3/uL [place] # (Auto) 0.8 (0.1-1.2) X10*3/uL Eos # (Auto) 0.1 (0.0-0.4) X10*3/uL Baso # (Auto) 0.1 (0.0-0.2) X10*3/uL Abs Immat Gran (auto) 0.02 (0.00-0.03) X10*3/uL Absolute Neuts (auto) 2.7 (2.0-8.3) x10*3/uL Absolute Nucleated RBC 0.000 (0.0-0.012) X10*3/uL Nucleated RBC % (auto) 0.0 (0.0-0.2) /100WBC VBG pH 7.37 (7.32-7.43) VBG pCO2 50 mmHg VBG pO2 80 mmHg VBG HCO3 29 H (22-26) mmol/L VBG O2 Saturation 95.0 % VBG Base Excess 3.9 mmol/L Sodium 136 (135-145) mmol/L Potassium 4.7 (3.3-5.1) mmol/L Chloride 103 (96-108) mmol/L Carbon Dioxide 26 (22-29) mmol/L Anion Gap 12 (12-20) BUN 29 H (9-16) mg/dL Creatinine 1.22 (0.5-1.4) mg/dL Estim Creat Clear Calc 60.8 Estimated GFR 56 Random Glucose 82 (60-115) mg/dL Lactic Acid 0.6 (0.5-2.0) mmol/L Calcium 9.2 (8.4-10.2) mg/dL Magnesium 2.1 (1.6-2.6) mg/dL Total Bilirubin 0.2 (0.0-1.0) mg/dL Direct Bilirubin < 0.2 (0.0-0.5) mg/dL AST 24 (5-37) U/L ALT 13 (0-40) U/L Alkaline Phosphatase 61 (39-117) U/L Troponin I High Sens 9.0 D 9.7 (<3.5-35.0) ng/L B-Natriuretic Peptide 58 (<100) pg/mL Total Protein 7.5 (6.5-8.0) g/dL Albumin 3.3 L (3.5-5.0) g/dL Procalcitonin 0.06 ng/mL Urine Color Yellow Urine Appearance Turbid Urine pH 5.5 (5.0-9.0) Ur Specific [place] 1.025 (1.005-1.025) Urine Protein 100 (2+) H (Neg-Trace) mg/dL Urine Glucose (UA) Negative (Negative) mg/dL Urine Ketones Negative (Negative) mg/dL Urine Blood Large (3+) H (Negative) Urine Nitrite Positive H (Negative) Ur Leukocyte Esterase Large (3+) H (Negative) Urine RBC >20 H (0-2) /HPF Urine WBC >50 H (0-5) /HPF Ur Squamous Epith Cells 6-10 (0-2) /HPF Urine Bacteria 4+ (None Seen) Hyaline Casts 11-20 (0-2) /LPF Urine Yeast Present Independent Interpretation I performed an independent interpretation of an: EKG (sinus rhythm with 1st degree AV block, LBBB, rate 71 bpm, prolonged GA interval) and Plain X-Ray Interpretation: X-ray notable for unchanged from prior study, no acute consolidation or effusion. Radiology Impression Discussion of test interpretation with radiology: I have reviewed the radiologist's reading. Radiologist Impression: XR/XR chest 1V IMPRESSION: Increased interstitial markings in both lungs question chronic changes, unchanged to previous study. There is no acute consolidation or pleural effusion. External Record Review External record reviewed: Inpatient record, Office record and Outpatient record Prescription Management I considered prescription management with: Antibiotic Chronic Conditions Patient?s care impacted by: Other Discharge Plan Discharge Clinical Impression: Acute UTI Patient Disposition: er [facility] Instructions: Urinary Tract Infection in Men (ED), How to Care for Your Suprapubic Catheter (DC), Catheter-associated Urinary Tract Infection (ED) Additional Instructions: You were evaluated in the emergency department today after an episode of appearing unwell. Your urine showed evidence of infection and you are being treated with an antibiotic. Please complete the full course as prescribed. Please follow-up with your primary care provider. Return to the emergency department if you develop fever, persistent vomiting, abdominal pain, back or flank pain or any other concerning symptoms. Prescriptions: New cefuroxime axetil 500 mg tablet 500 mg PO BID Qty: 14 0RF No Action multivitamin Tablet 1 tab PO DAILY cyanocobalamin (vitamin B-12) 1,000 mcg Tablet 1,000 mcg PO DAILY fluticasone propionate 50 mcg/actuation [place],Suspension 1 spray INTRANASAL DAILY oxycodone 5 mg Tablet 10 mg PO BID oxycodone 5 mg Tablet 10 mg PO Q6H PRN (Reason: Pain) escitalopram oxalate 10 mg Tablet 20 mg PO DAILY acetaminophen 325 mg Tablet 650 mg PO Q4H PRN (Reason: Pain) apixaban 2.5 mg Tablet 2.5 mg PO BID lidocaine 4 % Adhesive Patch,Medicated 1 patch TOPICAL DAILY calcium polycarbophil 625 mg Tablet 625 mg PO BID ondansetron 4 mg Tablet,Disintegrating 4 mg PO Q6H PRN (Reason: Nausea) mirabegron 50 mg Tablet Extended Release 24 Hr 50 mg PO DAILY ascorbic acid (vitamin C) 1,000 mg tablet 1 g PO DAILY 90 Days Qty: 90 1RF methenamine hippurate 1 gram tablet 1 g PO DAILY 90 Days Qty: 90 1RF Print Language: Ukrainian
[2024-03-01 19:19] LABS: Alanine Aminotransferase 13 U/L (0-40)
[2024-03-01 20:01] VITALS: BP 101/59; PULSE 67; RESP 18; TEMP 36.5; O2SAT 93
--- NOTE | 2024-03-01 20:08 | PC.NURSE ---
Assumed care of pt at 1900. PT a/o, resting quietly at this time. PT reporting generalized body pain that is chronic in nature. VSS. suprapubic cath in place, 150cc of yellow output. Plan for pt to be discharge back to [facility]. Notified unit sectary to set up transportation.
--- NOTE | 2024-03-01 20:51 | PC.NURSE ---
transportation on hold. provider requesting repeat trop. Blood drawn by set up mold technician- awaiting result
[2024-03-01 21:02] LABS: Troponin-I High Sensitivity 9.7 ng/L (<3.5-35.0)
[2024-03-01 21:21] VITALS: BP 112/61; PULSE 68; RESP 18; TEMP 36.4; O2SAT 93
--- NOTE | 2024-03-01 21:46 | PC.NURSE ---
Addendum entered by Rebekah Meek 03/01/24 22:29: [facility] RN noted concern regarding pt's discharge noting that pt was trialed on RA. Information received from day shift nurse and understanding that provider, Taryn had was that pt was on baseline 02 at 2l, was not aware that pt was hypoxic today requiring him to be placed on. Nurse reported that paperwork from [facility] indicated baseline O2. physician office secretary to fax CXRay results and UA Original Note: transfer report given to [facility] nurse, ADONIS Bradshaw .
== END 2024-03-01 21:41 ==
PROVIDERS: Physician Assistant; Registered Nurse Emergency; Emergency Provider Emergency Medicine
DX: N39.0 Urinary tract infection, site not specified (principal); I44.0 Atrioventricular block, first degree; I44.7 Left bundle-branch block, unspecified; R06.02 Shortness of breath; E11.22 Type 2 diabetes mellitus with diabetic chronic kidney disease; I13.0 Hypertensive heart and chronic kidney disease with heart failure and stage 1 through stage 4 chronic kidney disease, or unspecified chronic kidney disease; N18.30 Chronic kidney disease, stage 3 unspecified; I50.9 Heart failure, unspecified; I48.91 Unspecified atrial fibrillation; Z79.01 Long term (current) use of anticoagulants; Z79.899 Other long term (current) drug therapy
CPT/HCPCS: 36415; 71045; 80048; 80076; 81001; 82803; 83605; 83735; 83880; 84145; 84484; 85025; 87040; 87086; 93005; 99285

== ENCOUNTER → 2024-03-01 17:32 | Outpatient (BNV) | payer MEDICARE, SELFPAY | PROVIDERS: Emergency Provider Emergency Medicine; Visit Provider Internal Medicine | DX: R06.02 Shortness of breath (principal) | CPT/HCPCS: 93010 ==

== ENCOUNTER 2024-03-12 11:54 | Outpatient (AMB) | payer MEDICARE, SELFPAY ==
--- NOTE | 2024-03-12 11:59 | A.OFFVIS_ITS ---
Intake Intake Visit Reasons: scrotal orchitis Allergies codeine Adverse Reaction (Intermediate, Verified 03/12/24 22:57) Vomiting morphine Adverse Reaction (Intermediate, Verified 03/12/24 22:57) Vomiting Medication List - Last Reconciled 03/12/24 by AKILA Ponce acetaminophen 650 mg PO Q4H PRN apixaban 2.5 mg PO BID ascorbic acid (vitamin C) 1 g PO DAILY 90 days calcium polycarbophil 625 mg PO BID cefuroxime axetil 500 mg PO BID cyanocobalamin (vitamin B-12) 1,000 mcg PO DAILY escitalopram oxalate 20 mg PO DAILY fluticasone propionate 50 mcg/actuation 1 spray intranasal DAILY lidocaine 4% 1 patch topical DAILY methenamine hippurate 1 g PO DAILY 90 days mirabegron ER 50 mg PO DAILY multivitamin 1 tab PO DAILY ondansetron 4 mg PO Q6H PRN oxycodone 10 mg PO BID oxycodone 10 mg PO Q6H PRN HPI HPI Comments History of Present Illness Details Clarence is an 83 year old male [facility] He has a past medical history of cellulitis of the scrotum, cardiomyopathy with an EF of 25-30%, depression, venous insufficiency, dysphagia, spinal stenosis, urinary retention, osteoarthritis, hypertension, chronic kidney disease stage 3, congestive heart failure, type 2 diabetes, and atrial fibrillation. He is being followed up on today for his neurogenic bladder as well as scrotal cellulitis. In discussion with nursing staff today it appears approximately 1 month ago antibiotic therapy was initiated for potential orchitis. Patient was experiencing swelling, redness, and pain in his scrotum. He has since completed antibiotic therapy. Recommendations were made for urology follow-up. In assessment of the patient today generalized pain noted throughout today's exam. Patient with pain along the epididymis left side greater than right. Small bilateral hydroceles are palpated. Otherwise no open areas, redness, drainage, or swelling noted on exam today. Patient with a longstanding history of scrotal issues. He was previously hospitalized for scrotal cellulitis and treated with IV Zosyn, vancomycin, and ceftriaxone, recommendations were made for short term antibiotic of doxycycline to be completed outpatient. It appears small puncture wound at the base of the scrotum has since healed. Patient with known phimosis. Suprapubic tube draining clear yellow urine. Suprapubic tube site appears clean, dry, and WNL. He does report abdominal pain throughout today's visit however it appears this is his baseline per nursing staff. In review of patient's chart it appears scrotal ultrasound obtain a proximally 4 months ago noted bilateral moderate hydroceles, large left spermatocele with echogenic debris, bilateral scrotal wall thickening, and both testes had normal Doppler exam. He otherwise denies any urological issues or concerns. Neurogenic bladder with some spasticity Suprapubic tube in place - placed 2020 Clear draining urine On Myrbetriq for spasm Has catheter drainage during day q.4 hours, uses overnight bag Continue on vitamin-C 1000 mg methenamine daily to minimize colonization Continue catheter exchange as ordered. 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 difficile colitis Left bundle branch block Spinal stenosis Urine retention Osteoarthritis Benign prostate hyperplasia Hypertension CKD (chronic kidney disease) stage 3, GFR 30-59 ml/min CHF (congestive heart failure) Type 2 diabetes mellitus Atrial fibrillation Surgical History History of incision and drainage History of ligation of vein H/O spinal fusion Family History Other No family history of cardiovascular disease Social History Household Members: Other Household Members Other:: [facility] Housing: Prison Housing Other:: [facility] Are you a primary pediatric critical care nurse to a significant other at home: No Do you presently have visiting nurse or other home services: Yes (SNF) Unable to assess alcohol history related to: Unknown Alcohol intake: never Comment: resting in bed, eyes closed Patient Tobacco Use Status: Former Tobacco user Advance Directives Date on File: 10/17/23 service: Yes Current occupational status: retired Review of Systems Const Reports as per HPI Eyes Reports no additional complaints ENT Reports no additional complaints Card Reports as per HPI Resp Reports as per [facility] GI Reports as per HPI Reports as per [facility] Musc Reports as per [facility] Neuro Reports as per [facility] Endo Reports as per HPI Uriel/Lymph Reports no additional complaints Aller/Immun Reports no additional complaints Physical Exam Const General: cooperative, no acute distress, well developed, alert and awake Nutritional Appearance: overweight Orientation/consciousness: oriented to person Limitations: other limitations (in bed) HEENT Head: Yes normal to inspection, Yes normocephalic and Yes atraumatic Ears: hearing grossly normal bilaterally Eyes General: appearance normal, both eyes and all related structures Neck Neck: Yes normal visual inspection and Yes trachea midline Chest Chest palpation & inspection: normal inspection of the chest Resp Effort & Inspection: normal respiratory effort and able to speak in complete sentences Cardio Rate: regular rate GI Inspection: Yes normal to inspection Male General Exam: Yes tenderness Penis: phimosis Scrotum: other (as per HPI) Testes: testicular tenderness bilateral Skin General skin exam: no rashes or lesions noted Neuro General: oriented to person Extrem General: Yes normal to inspection Psych Appearance: grossly normal and well kempt Mental Status: mental status grossly normal Speech and movement: Normal speech and movement present and Clear speech present Affect: normal affect Attitude: cooperative and Avoids eye contact (attititude/behavior) Insight: Fair insight present (Psych) Judgement: Fair judgement present (Psych) Results Reviewed Results Reviewed: Date of Service: 11/11/23 EXAMINATION: US SCROTUM FINDINGS: RIGHT: Right testicle measures 3.2 x 2.4 x 2.4 cm, volume 9.5 mL. No focal testicular parenchymal lesions are visualized. Spectral Doppler analysis of the arterial and venous flow is normal in the right testis. Right epididymal head is normal in size. There is moderate to large hydrocele. No varicocele is seen. Right epididymal Doppler flow is normal. LEFT: Left testicle measures 2.7 x 2 0.0, 2.0 cm, volume 2.8 mL. No focal testicular parenchymal lesions are visualized. Spectral Doppler analysis of the arterial and venous flow is normal in the left testis. Left epididymal head is normal in size. There is a large anechoic cyst with mobile echogenic debris likely spermatocele. There is moderate left. No varicocele is seen. Left epididymal Doppler flow is normal. There is bilateral significant tenderness and skin thickening/edema measuring 0.9 cm on the right hemiscrotum and 0.7 cm and left hemiscrotum. IMPRESSION: 1. Bilateral moderate to large hydroceles. 2. Large left spermatocele with echogenic debris. 3. Bilateral scrotal wall thickening 4. Both testes are normal with normal Doppler exam. Assessment & Plan Assessment & Plan (1) Orchitis: Code(s): N45.2 - Orchitis (2) Spastic neurogenic bladder: Code(s): N31.8 - Other neuromuscular dysfunction of bladder Plan Generalized scrotal pain noted during exam today. Continue urological medications; methenamine, vitamin-C, and Myrbetriq. Patient currently denies any bothersome urinary issues. He reports to be happy with current voiding parameters. Continue SPT changes as ordered. Can repeat scrotal ultrasound. Discussed OTC measures such as: Tylenol/Motrin/heat/ice. Follow up once imaging is completed or sooner with any issues, concerns, or questions. Patient Instructions: The patient had an opportunity to ask questions regarding the treatment plan. All questions were answered. Physical exam, labs, and imaging were discussed and reviewed in detail. As well as risks, benefits, and discussion of treatment choices. No major barriers to understanding were identified. The patient expressed understanding and agreement with the above treatment plan. The patient was made aware they should contact our office by phone for worsening of their current condition, the appearance of new symptoms, or with any que stions or concerns. Compliance is encouraged with any medications and follow up testing that is ordered. It is a privilege to be allowed the opportunity to participate in? your urological care.? Again, if you have any questions or concerns If you have any questions or concerns please do not hesitate to contact me. The office is [phone]. This note is constructed using voice recognition software. While every effort has been made to ensure accuracy hydropress operator errors may have been included. Yours sincerely, AKILA Ponce Coding Level of Care Code 63501-[id number] Fac sub, mod Diagnoses Orchitis N45.2 Spastic neurogenic bladder N31.8 Time Spent (min) 30
== END 2024-03-12 16:30 | disposition home or self-care (01) ==
LOC: HO.HUSV 11:54
PROVIDERS: Visit Provider Nurse Practitioner Family
DX: N45.2 Orchitis (principal); N31.8 Other neuromuscular dysfunction of bladder
CPT/HCPCS: 99309

== ENCOUNTER 2024-04-25 15:50 | Emergency (ER) | payer MEDICARE, SELFPAY ==
[2024-04-25] VITALS (18 sets, daily range): BP systolic 44–122; BP diastolic 23–71; PULSE 34–120; RESP 15–33; TEMP 37.1–37.8; O2SAT 83–97; BMI 26.4
--- NOTE | 2024-04-25 | ECG_ITS ---
Test Reason : ARRHYTHMIA Blood Pressure : / mmHG Vent. Rate : 101 BPM Atrial Rate : 101 BPM P-R Int : 224 ms QRS Dur : 156 ms QT Int : 418 ms P-R-T Axes : 000 -14 020 degrees QTc Int : 542 ms Sinus tachycardia with 1st degree A-V block with Premature atrial complexes with Aberrant conduction Left bundle branch block Abnormal ECG When compared to the previous EKG of same day, rhythm change Referred By: Alhaji Isaac Electronically Signed By:BANDAR NESS
--- NOTE | ~2024-04-25 | CT_ITS ---
EXAMINATION: CT ABDOMEN AND PELVIS WITH CONTRAST CLINICAL INFORMATION: Abdominal pain COMPARISON: CT scan abdomen pelvis October 17, 2023 TECHNIQUE: Multidetector volumetric images were obtained from the superior aspect of the liver through the pubic symphysis following administration 85 mL of Omnipaque 350 intravenous contrast. Sagittal and coronal reformatted images were obtained on the technologist's workstation. Oral contrast: No This CT examination was performed using dose optimization techniques as appropriate, variously including the following: *Automated exposure control *Adjustment of mA and/or kV according to patient size (this includes techniques or standardized protocols for targeted exams where dose is matched to indication/reason for exam; i.e. extremities or head) *Use of iterative reconstruction technique DLP: 1447 mGy-cm FINDINGS: There is breathing artifact. There is artifact from imaging with patient's arms over the mid abdomen. LUNG BASES: The visualized lung bases are unremarkable. LIVER, GALLBLADDER, AND BILIARY TREE: The liver is normal in size, shape, and attenuation. No focal hepatic lesion or biliary ductal dilatation is present. Multiple gallstones within the gallbladder. No edema around the gallbladder. No bile duct dilatation. PANCREAS: Pancreas is atrophic. No inflammation or mass. SPLEEN: Unremarkable. ADRENAL GLANDS: Unremarkable. KIDNEYS AND URETERS: Left kidney: Staghorn calculus in the left kidney. This has a density measurement of 40 Hounsfield units. This stone is 9 cm posterior skin line. Left kidney is atrophic. Left kidney measures 7.9 cm in length. 1.6 cm simple cyst in the cortex lower pole left kidney. No follow-up imaging is recommended for simple renal cyst.. Right kidney: Normal right kidney. No calculus or hydronephrosis. Kidneys of normal size with normal cortical thickness. BLADDER: Suprapubic catheter in the bladder. GASTROINTESTINAL TRACT: Large volume of stool in the rectum. Rectum distended to a diameter of 7.5 cm without bowel wall thickening or surrounding edema. No evidence of stercoral colitis. Large volume of stool in the remainder the colon. The appendix is normal . The small bowel loops are unremarkable. The stomach is normal. There is no hiatal hernia. ABDOMINAL WALL: No significant hernia is appreciated. LYMPH NODES: Normal. VASCULAR: Unremarkable. PELVIC VISCERA: Unremarkable. OSSEOUS STRUCTURES: Advanced multilevel degenerative spondylosis spine. No acute osseous abnormality. CT/CT abdomen pelvis w IV con IMPRESSION: 1. Cholelithiasis. No acute change of gallbladder wall or bile duct dilatation. 2. Staghorn calculus left kidney. Left kidney is atrophic. 3. Suprapubic catheter in bladder. 4. Large volume of stool in the rectum. No acute abnormality of the bowel. Fleischner guidelines were followed.
--- NOTE | ~2024-04-25 | XR_ITS ---
EXAMINATION: XR CHEST CLINICAL INFORMATION: Hypoxia COMPARISON: Chest x-ray March 01, 2024, June 22, 2023. CT of chest January 02, 2020 TECHNIQUE: Frontal portable view of the chest was obtained. 1631 hours FINDINGS: Lung volume low. This accentuates bronchovascular markings. Diffuse increased interstitial lung markings. These are chronic unchanged since CT chest January 02, 2020.. No overt pulmonary edema. No focal consolidation. No pleural effusion. XR/XR chest 1V IMPRESSION: Low lung volume. Chronic increased interstitial lung markings. No acute abnormality of chest.
--- NOTE | 2024-04-25 16:20 | ECG_ITS ---
Test Reason : ABDOMINAL PAIN Blood Pressure : / mmHG Vent. Rate : 100 BPM Atrial Rate : 100 BPM P-R Int : 176 ms QRS Dur : 158 ms QT Int : 420 ms P-R-T Axes : 000 -15 011 degrees QTc Int : 541 ms Normal sinus rhythm Left bundle branch block Abnormal ECG When compared with ECG of 01-MAR-2024 17:45, MT interval has decreased Nonspecific T wave abnormality no longer evident in Anterior leads Referred By: Torres Gunderson Electronically Signed By:BANDAR NESS
[2024-04-25 16:45] LABS: Hematocrit 29.1 % (42.0-52.0); Hemoglobin 9.6 g/dl (14.0-18.0); Mean Corpuscular Hemoglobin 30.9 pg (27.0-33.0); Mean Corpuscular Volume 93.6 fL (80.0-98.0); Mean Platelet Volume 10.2 fL (9.4-12.4); Platelet Count 229 X10*3/uL (160-400); Red Blood Count 3.11 X10*6/uL (4.60-5.80); Red Cell Distribution Width 18.8 % (11.0-16.0); White Blood Count 8.5 X10*3/uL (4.8-10.8)
[2024-04-25] MEDS: ondansetron HCL 4 MG/2 ML VIAL IVPUSH (16:47)
[2024-04-25] MEDS: Morphine Sulfate 4 MG/ML CARTRIDGE IVPUSH (16:47)
[2024-04-25] MEDS: 0.9 % Sodium Chloride 1,000 ML 999 ML IV ×3 (16:47→19:20)
[2024-04-25 16:52] LABS: Lactic Acid 1.8 mmol/L (0.5-2.0)
--- NOTE | 2024-04-25 16:54 | ED.GENADULT ---
HPI - General Adult General Chief complaint: Abdominal Pain Stated complaint: Abdominal pain following procedure, 94% on 3L Time Seen by Provider: 04/25/24 16:09 Source: patient, RN notes reviewed and old records reviewed Mode of arrival: EMS Limitations: other (The patient is a very poor historian) History of Present Illness ED Provider: Neptali HPI narrative: 83-year-old male past medical history significant for type 2 diabetes, neurogenic bladder status post suprapubic catheter placement, chronic kidney disease, hypertension presents for evaluation abdominal pain. Patient states that he has ?pain all over. ? Staff from the [facility] where the patient resides stated the patient has been complaining of abdominal pain for 2 days The patient states that he does not feel constipated He is unsure if he has had any fevers or chills. He denies any shortness of breath but was found to be hypoxic to lower 80% on room air via EMS Related Data Home Medications ?Medication ?Instructions ?Recorded ?Confirmed acetaminophen 325 mg tablet 650 mg PO Q4H PRN Pain 12/17/20 03/12/24 cyanocobalamin (vitamin B-12) 1,000 mcg PO DAILY 12/17/20 03/12/24 1,000 mcg tablet escitalopram oxalate 10 mg tablet 20 mg PO DAILY 12/17/20 03/12/24 fluticasone propionate 50 1 spray intranasal DAILY 12/17/20 03/12/24 mcg/actuation nasal spray,suspension multivitamin 1 tab PO DAILY 12/17/20 03/12/24 oxycodone 5 mg tablet 10 mg PO BID 12/17/20 03/12/24 oxycodone 5 mg tablet 10 mg PO Q6H PRN Pain 12/17/20 03/12/24 apixaban 2.5 mg tablet 2.5 mg PO BID 08/17/21 03/12/24 calcium polycarbophil 625 mg tablet 625 mg PO BID 10/17/23 03/12/24 lidocaine 4 % topical patch 1 patch topical DAILY 10/17/23 03/12/24 mirabegron 50 mg tablet,extended 50 mg PO DAILY 10/17/23 03/12/24 release 24 hr ondansetron 4 mg disintegrating 4 mg PO Q6H PRN Nausea 10/17/23 03/12/24 tablet Previous Rx's ?Medication ?Instructions ?Recorded ascorbic acid (vitamin C) 1,000 mg 1 g PO DAILY 90 days #90 tabs 09/22/21 tablet methenamine hippurate 1 gram tablet 1 g PO DAILY 90 days #90 tabs 09/22/21 cefuroxime axetil 500 mg tablet 500 mg PO BID #14 tabs 03/01/24 Allergies Allergy/AdvReac Type Severity Reaction Status Date / Time codeine AdvReac Intermediate Vomiting Verified 04/25/24 16:02 morphine AdvReac Intermediate Vomiting Verified 04/25/24 16:02 Review of Systems Constitutional: Constitutional: Reports body ache(s) Cardiovascular: Cardiovascular: Denies chest pain and Reports dyspnea Respiratory: Respiratory: Reports dyspnea Gastrointestinal: Gastrointestinal: Reports abdominal pain, Reports nausea and Reports vomiting Musculoskeletal: Musculoskeletal: Denies back pain Integumentary/Breasts: Skin/Breast: Denies rash PMFSH Past Medical History Medical History Bacteriuria Cellulitis of scrotum PONV (postoperative nausea and vomiting) Cardiomyopathy COVID-19 vaccine series completed Depression Venous insufficiency Dysphagia intermediate resident Carbuncle of gluteal region C. 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 Housing: Penitentiary Housing Other:: [place] [facility] [facility] Are you a primary daytime caregiver to a significant other at home: No Do you presently have visiting nurse or other home services: Yes (SNF) Unable to assess alcohol history related to: Unknown Alcohol intake: never Comment: resting in bed, eyes closed Patient Tobacco Use Status: Former Tobacco user Smoked in Last 30 Days: No Advance Directives: Yes Advance Directives on File: Yes Advance Directives Date on File: 10/17/23 Do you have a plan to hurt others: No Plan service: Yes Current occupational status: retired Physical Exam ED Vital Signs: Vital Signs - 24 hr 04/25/24 15:55 04/25/24 16:38 04/25/24 20:18 Temperature 98.8 F 98.8 F 98.8 F Pulse Rate 101 H 101 H 101 H Respiratory Rate 22 H 22 H 18 Blood Pressure 99/55 L 83/46 L Pulse Oximetry 94 94 94 Oxygen Delivery Method Nasal Cannula Nasal Cannula Room Air Aerosol Mask Oxygen Flow Rate 2 12 04/25/24 20:30 04/25/24 20:35 Temperature Pulse Rate 103 H 102 H Respiratory Rate Blood Pressure 86/37 L 93/47 L Pulse Oximetry Oxygen Delivery Method Oxygen Flow Rate BMI result Body Mass Index 26.4 Const General: no acute distress, alert and awake Nutritional Appearance: well nourished Orientation/consciousness: patient oriented x3 HENMT Head: Yes normocephalic and Yes atraumatic Eyes Eyelids: Yes eyelids normal Conjunctivae: conjunctivae normal Sclerae: sclerae normal Corneas: corneas normal Pupils: Equal, round and reactive pupils present EOM: EOMs intact bilaterally Neck Neck: Yes full ROM Resp Effort & Inspection: normal respiratory effort, able to speak in complete sentences, no audible wheezes and not labored Auscultation: clear to auscultation bilaterally Cardio Rate: regular rate Rhythm: regular rhythm GI Inspection: No distended Palpation (GI): Soft to palpation, not firm, Tenderness to palpation present (GI) (Soft abdomen with Diffuse tenderness), no guarding and not rigid Auscultation: normoactive bowel sounds Skin General skin exam: elasticity normal Neuro General: patient oriented x3 Cranial nerves: Yes Equal, round and reactive pupils present and Yes Bilaterally intact EOM present Cognition (Neuro): normal cognition Extrem Other: Moving all extremities well without any obvious deformities Course Reevaluation(s) Reevaluation #1: Patient is tachycardic, tachypneic, hypotensive with a bandemia 24%, he has a UTI, at this point meets sepsis criteria I ordered vancomycin Zosyn, a UTI alone she would not explain hypoxia therefore I opted for broader coverage than just ceftriaxone for UTI. Time: 17:29 Reevaluation #2: Patient has had a systolic blood pressure below 90 twice, he has improved to 114/82. However given that he had 2 episodes of systolic blood pressure below 90 he met criteria for severe sepsis, I will add IV fluids to equal 30 per kilos and will add albumin to prevent further hypotension. There was an episode with the patient briefly went unresponsive, his blood pressure dropped and his heart rate dropped into the 40s, he became clammy, after about 1-2 minutes he improved back to his baseline mental status, blood pressure improved to a systolic of 114/82 again. It is likely that he had a vasovagal episode. Plan for repeat EKG as well. Patient's ideal body weight is calculated to about 89 kg, I added a third liter of normal saline which would be equivalent to over 30 milligrams/kilos of ideal body weight. Time: 19:04 Reevaluation #3: Patient had another episode where his heart rate dropped into the 40s, he became unresponsive. Repeat EKG showed AV dissociation. This lasted again for a few minutes before the patient's heart rate improved to the 100, a 3rd EKG showed sinus tachycardia with left bundle-branch block. I discussed with Cardiology, Dr Helm who recommends transfer to [facility] for CCU. I discussed with [facility] transplant and spoke to Dr. Molina who accepts transfer of care to the CCU. The patient is currently hemodynamically stable, blood pressure is 96/48, heart rate is about 110. If the patient has another episode of AV dissociation with hypotension and bradycardia the plan is to intubate the patient for airway protection and possible transcutaneous versus floating a transvenous temporary pacer wire. I also discussed with the patient's family, Allyson Crump, healthcare proxy and updated her with the patient's status. The patient is indeed a full code as his MOLST form confirms and the health care proxy further confirms. She is comfortable with transfer to higher level of care if needed. Time: 20:06 Additional Reevaluation(s): 20:41 we did attempt Narcan as the patient does take chronic oxycodone at home, there was no improvement with IV Narcan. His blood pressure continued to drop and he was given started on Levophed. He has not had any further episodes of bradycardia Medications Administered Generic Name Dose Route Start Last Admin Trade Name Freq PRN Reason Stop Dose Admin Albumin Human 100 mls @ 133.333 mls/hr 04/25/24 19:15 04/25/24 20:14 Kedbumin 25 % IV 04/25/24 20:59 133.33 mls/hr Q1H ROXANN Administration Norepinephrine Bitartrate 8 mg in 250 mls @ 0 mls/hr 04/25/24 20:30 04/25/24 20:35 Levophed IV 0.07 mcg/kg/min .Q0M ROXANN 13.27 mls/hr Titration Protocol Per Protocol Discontinued Medications Generic Name Dose Route Start Last Admin Trade Name Frehannah PRN Reason Stop Dose Admin Sodium Chloride 1,000 mls @ 999 mls/hr 04/25/24 16:30 04/25/24 18:10 Ns IV 04/25/24 17:30 Infused .Q1H1M ROXANN Infusion Vancomycin HCl 1,500 mg/ 500 mls @ 333.333 mls/hr 04/25/24 17:16 04/25/24 20:32 Sodium Chloride IV 04/25/24 18:45 Infused ONCE ONE Infusion Piperacillin Sod/Tazobactam 50 mls @ 100 mls/hr 04/25/24 17:16 04/25/24 17:45 Sod 3.375 gm/ Sodium Chloride IV 04/25/24 17:45 Infused ONCE ONE Infusion Sodium Chloride 1,000 mls @ 999 mls/hr 04/25/24 17:30 04/25/24 20:32 Ns IV 04/25/24 18:30 Infused .Q1H1M ROXANN Infusion Sodium Chloride 1,000 mls @ 999 mls/hr 04/25/24 19:15 04/25/24 20:32 Ns IV 04/25/24 20:15 Infused .Q1H1M ROXANN Infusion Iohexol 100 ml 04/25/24 18:13 04/25/24 18:13 Iohexol 350 Mg/Ml 100 Ml Infus..Btl IV 04/25/24 18:14 85 ml ONCE ONE Administration Morphine Sulfate 4 mg 04/25/24 16:20 04/25/24 16:47 Morphine Sulfate 4 Mg/Ml Cartridge IVPUSH 04/25/24 16:21 4 mg ONCE ONE Administration Protocol Naloxone HCl 0.4 mg 04/25/24 19:22 04/25/24 19:25 Naloxone Hcl 0.4 Mg/Ml Vial IVPUSH 04/25/24 19:23 0.4 mg STAT STA Administration Ondansetron HCl 4 mg 04/25/24 16:20 04/25/24 16:47 Ondansetron Hcl 4 Mg/2 Ml Vial IVPUSH 04/25/24 16:21 4 mg ONCE ONE Administration Medical Decision Making Medical Decision Making [facility] Narrative: 83-year-old male presents for evaluation of abdominal pain with nausea vomiting for 2 days. He was found to be hypoxic on room air but is 90% on 2 L. He has no known history of respiratory issues. Plan for broad workup including chest x-ray, CT scan of the abdomen pelvis, labs, UA. The patient does have a suprapubic catheter that was last changed yesterday. There is a question of urosepsis. Differential Diagnosis Differential Diagnoses: The differential diagnosis associated with the presentation includes Acute abdomen Constipation Sepsis Pneumonia Urosepsis UTI Obstructive uropathy COVID-19 Viral syndrome Lab Data [facility] Lab Attestation statement: I reviewed the patient's lab results. Received call from the lab the patient has a bandemia of 24%. There is no leukocytosis. The patient has a chronic anemia. His hemoglobin 9.6 with hematocrit 29.1 is just above his baseline. Chemistry indices indicate an elevated BUN to 29 with a high normal creatinine of 1.32. No other acute chemistry abnormalities. This could be a sign of urosepsis or obstructive uropathy. 04/25/24 16:35 04/25/24 16:35 Labs: Lab Results 04/25/24 04/25/24 04/25/24 Range/Units 16:35 17:02 18:57 WBC 8.5 (4.8-10.8) X10*3/uL RBC 3.11 L (4.60-5.80) X10*6/uL Hgb 9.6 L (14.0-18.0) g/dl Hct 29.1 L (42.0-52.0) % MCV 93.6 (80.0-98.0) fL MCH 30.9 (27.0-33.0) pg MCHC 33.0 (31.0-36.0) g/dl RDW 18.8 H (11.0-16.0) % Plt Count 229 (160-400) X10*3/uL MPV 10.2 (9.4-12.4) fL Immature Gran % (Auto) Cancelled Neut % (Auto) Cancelled Lymph % (Auto) Cancelled [place] % (Auto) Cancelled Eos % (Auto) Cancelled Baso % (Auto) Cancelled Lymph # (Auto) Cancelled [place] # (Auto) Cancelled Eos # (Auto) Cancelled Baso # (Auto) Cancelled Abs Immat Gran (auto) Cancelled Absolute Neuts (auto) Cancelled Absolute Nucleated RBC 0.000 (0.0-0.012) X10*3/uL Nucleated RBC % (auto) 0.0 (0.0-0.2) /100WBC Neutrophils % (Manual) 74 H (45-73) % Band Neutrophils % 24 H (3-5) % Lymphocytes % (Manual) 1 L (20-40) % Monocytes % (Manual) 1 L (2-11) % Abs Neuts (Manual) 8.3 (2.0-8.3) X10*3/uL Lymphocytes # (Manual) 0.1 L (1.2-4.9) X10*3/uL Monocytes # (Manual) 0.1 (0.1-1.2) X10*3/uL Toxic Vacuolation PRESENT Platelet Estimate NORMAL (NORMAL) Plt Morphology Comment NORMAL RBC Morphology NOTED PT 17.5 H (11.1-13.3) SEC INR 1.4 H (0.9-1.1) Sodium 141 (135-145) mmol/L Potassium 4.0 (3.3-5.1) mmol/L Chloride 105 (96-108) mmol/L Carbon Dioxide 26 (22-29) mmol/L Anion Gap 14 (12-20) BUN 29 H (9-16) mg/dL Creatinine 1.32 (0.5-1.4) mg/dL Estim Creat Clear Calc 51.5 Estimated GFR 52 POC Glucose 122 H (60-115) mg/dL Random Glucose 107 (60-115) mg/dL Lactic Acid 1.8 (0.5-2.0) mmol/L Calcium 9.2 (8.4-10.2) mg/dL Magnesium 1.9 (1.6-2.6) mg/dL Total Bilirubin 0.4 (0.0-1.0) mg/dL AST 22 (5-37) U/L ALT 10 (0-40) U/L Alkaline Phosphatase 85 (39-117) U/L Troponin I High Sens 10.5 (<3.5-35.0) ng/L Total Protein 7.6 (6.5-8.0) g/dL Albumin 3.3 L (3.5-5.0) g/dL Lipase 8 (8-78) U/L Urine Color Dark Yellow Urine Appearance Turbid Urine pH 5.5 (5.0-9.0) Ur Specific [place] 1.015 (1.005-1.025) Urine Protein 300 (3+) H (Neg-Trace) mg/dL Urine Glucose (UA) Negative (Negative) mg/dL Urine Ketones Negative (Negative) mg/dL Urine Blood Large (3+) H (Negative) Urine Nitrite Positive H (Negative) Ur Leukocyte Esterase Large (3+) H (Negative) Urine RBC >20 H (0-2) /HPF Urine WBC >50 H (0-5) /HPF Ur Squamous Epith Cells 0-2 (0-2) /HPF Urine Bacteria 4+ (None Seen) Hyaline Casts 0-2 (0-2) /LPF Influenza Type A (PCR) NEGATIVE (Negative) Influenza Type B (PCR) NEGATIVE (Negative) RSV RNA Qual (PCR) NEGATIVE (Negative) SARS-CoV-2 RNA (RT-PCR) NEGATIVE (Negative) Critical Care Time Critical Care Time Critical Care Time: Yes Total Critical Care Time: 90 Attestation: Patient required multiple consultations, discussion with family, multiple re-evaluations, consideration of intubation, transvenous versus transcutaneous pacemaker, ultimately transferred to CCU and higher level of care. Patient required additional re-evaluation and was started on Levophed Discharge Plan Discharge Clinical Impression: Sepsis, Atrioventricular (AV) dissociation Patient Disposition: [facility] Transfer Details: [facility] CCU Prescriptions: No Action multivitamin Tablet 1 tab PO DAILY cyanocobalamin (vitamin B-12) 1,000 mcg Tablet 1,000 mcg PO DAILY fluticasone propionate 50 mcg/actuation [place],Suspension 1 spray INTRANASAL DAILY oxycodone 5 mg Tablet 10 mg PO BID oxycodone 5 mg Tablet 10 mg PO Q6H PRN (Reason: Pain) escitalopram oxalate 10 mg Tablet 20 mg PO DAILY acetaminophen 325 mg Tablet 650 mg PO Q4H PRN (Reason: Pain) apixaban 2.5 mg Tablet 2.5 mg PO BID lidocaine 4 % Adhesive Patch,Medicated 1 patch TOPICAL DAILY calcium polycarbophil 625 mg Tablet 625 mg PO BID ondansetron 4 mg Tablet,Disintegrating 4 mg PO Q6H PRN (Reason: Nausea) mirabegron 50 mg Tablet Extended Release 24 Hr 50 mg PO DAILY cefuroxime axetil 500 mg tablet 500 mg PO BID Qty: 14 0RF ascorbic acid (vitamin C) 1,000 mg tablet 1 g PO DAILY 90 Days Qty: 90 1RF methenamine hippurate 1 gram tablet 1 g PO DAILY 90 Days Qty: 90 1RF Print Language: Macedonian
[2024-04-25 17:05] LABS: Neutrophils Percent Manual 74 % (45-73); Troponin-I High Sensitivity 10.5 ng/L (<3.5-35.0)
[2024-04-25 17:07] LABS: Band Neutrophils Percent 24 % (3-5); Lymphocytes Absolute Manual 0.1 X10*3/uL (1.2-4.9); Lymphocytes Percent Manual 1 % (20-40); Monocytes Absolute Manual 0.1 X10*3/uL (0.1-1.2); Monocytes Percent Manual 1 % (2-11); Neutrophils Absolute Manual 8.3 X10*3/uL (2.0-8.3); RBC Morphology NOTED
[2024-04-25 17:08] LABS: Toxic Vacuolation PRESENT
[2024-04-25 17:09] LABS: Platelet Estimate NORMAL (NORMAL); Platelet Morphology Comment NORMAL
[2024-04-25 17:12] LABS: Alanine Aminotransferase 10 U/L (0-40); Albumin Level 3.3 g/dL (3.5-5.0); Alkaline Phosphatase 85 U/L (39-117); Anion Gap 14 (12-20); Aspartate Amino Transferase 22 U/L (5-37); Bilirubin Total 0.4 mg/dL (0.0-1.0); Blood Urea Nitrogen 29 mg/dL (9-16); Calcium 9.2 mg/dL (8.4-10.2); Carbon Dioxide 26 mmol/L (22-29); Chloride 105 mmol/L (96-108); Creatinine Clr Calc Pharmacy 51.5; Estimated Glomerular Filt Rate 52; Glucose Random 107 mg/dL (60-115); Lipase 8 U/L (8-78); Sodium 141 mmol/L (135-145); Total Protein 7.6 g/dL (6.5-8.0)
[2024-04-25 17:14] LABS: Appearance Urine Turbid; Color Urine Dark Yellow; Glucose Urine UA Negative (Negative); Leukocyte Esterase Urine Large (3+) (Negative); Nitrite Urine Positive (Negative); PH 5.5 (5.0-9.0); Specific Gravity - Urine 1.015 (1.005-1.025); UMIC TRIGGER UACC YES; Urine Blood Large (3+) (Negative); Urine Ketones Negative (Negative); Urine Protein 300 (3+) mg/dL (Neg-Trace)
[2024-04-25 17:16] LABS: Bacteria Urine 4+ (None Seen); Hyaline Casts Urine 0-2 /LPF (0-2); RBC Urine >20 /HPF (0-2); Squamous Epithelial Cell Urine 0-2 /HPF (0-2); UACC Culture Trigger YES; WBC Urine >50 /HPF (0-5)
[2024-04-25 17:17] LABS: INTERNATIONAL NORM RATIO 1.4 (0.9-1.1); Prothrombin Time 17.5 SEC (11.1-13.3)
[2024-04-25 17:21] LABS: Influenza A PCR NEGATIVE (Negative); Influenza B PCR NEGATIVE (Negative); Resp Syncy Virus RNA Qual PCR NEGATIVE (Negative); SARS COV2 PCR INHOUSE NEGATIVE (Negative)
[2024-04-25] MEDS: Piperacillin Sodium/Tazobactam 3.375 GM in 0.9 % Sodium Chloride 50 ML IV (17:35)
[2024-04-25] MEDS: vancomycin HCL 1,500 MG in 0.9 % Sodium Chloride 500 ML 333.33 MG IV (17:43)
[2024-04-25] MEDS: iohexoL 350 MG/ML 100 ML INFUS..BTL IV (18:13)
--- NOTE | 2024-04-25 19:05 | ECG_ITS ---
Test Reason : ARRHYTHMIA Blood Pressure : / mmHG Vent. Rate : 051 BPM Atrial Rate : 033 BPM P-R Int : 126 ms QRS Dur : 038 ms QT Int : 342 ms P-R-T Axes : 017 200 003 degrees QTc Int : 315 ms Marked sinus bradycardia with ventricular escape complexes with complete heart block possibly some junctional escape complexes as well Abnormal ECG When compared with ECG of 25-APR-2024 16:44, Significant changes have occurred Referred By: Torres Gunderson Electronically Signed By:BANDAR NESS
[2024-04-25 19:10] LABS: Glucose, Whole Blood 122 mg/dL (60-115)
[2024-04-25] MEDS: Naloxone HCl 0.4 MG/ML VIAL IVPUSH (19:25)
--- NOTE | 2024-04-25 19:25 | PC.NURSE ---
Assumed care of pt at 1900 and at time of getting report of other pt. PA requested a boost /reposition. HR 50's, SBP dropped in 40's, pt became unresponsive, skin hot and clammy, POC check:122, HR back up into 100's, rectal temp 100.2, HR 100's, SBP improving 110's. Pt moaning in bed, answering yes or no questions. EKG ordered and tech completing task when HR dropped to 30's and O2 sat dropped to 79%, placed on non-rebreather at 15L SPO2 improved in the 90's 2nd EKG done and questionable heart block. CRISTOBAL consulting with MD's on. ordered for Narcan 0.4mg IV push d/t pt prescribed oxycodone use, HR again elevated to 120's, BP 91/49. SPO2 90%, Providers discussing possible intubation requirement. Pt moved to trauma room while stable. Vitals stable, pt responding more but minimal, with occasional moaning. Ameya consulting cardiologyand possible transfer.
[2024-04-25 19:32] LABS: Magnesium 1.9 mg/dL (1.6-2.6)
[2024-04-25] MEDS: Albumin Human 25 % 100 ML 133.33 ML IV (20:14)
[2024-04-25] MEDS: Norepinephrine Bitartrate/D5W 8 MG/250 ML PLAST..BAG 9.48 MG IV (20:30)
--- NOTE | 2024-04-25 21:51 | PC.NURSE ---
2030-PT bp beginning to [id number] vitals), provider aware and order for levophed placed and started on gtt per NOV with good result. Ambulance arrived, report given. Called report to Mónica LAMB at [facility] CCU.
== END 2024-04-25 21:00 | disposition short-term general hospital (02) ==
PROVIDERS: Physician Assistant; Emergency Provider Internal Medicine
DX: A41.9 Sepsis, unspecified organism (principal); I44.2 Atrioventricular block, complete; I44.7 Left bundle-branch block, unspecified; N39.0 Urinary tract infection, site not specified; B96.89 Other specified bacterial agents as the cause of diseases classified elsewhere; R09.02 Hypoxemia; R06.00 Dyspnea, unspecified; R00.0 Tachycardia, unspecified; I95.9 Hypotension, unspecified; D72.825 Bandemia; R11.2 Nausea with vomiting, unspecified; M79.10 Myalgia, unspecified site; E11.22 Type 2 diabetes mellitus with diabetic chronic kidney disease; I13.0 Hypertensive heart and chronic kidney disease with heart failure and stage 1 through stage 4 chronic kidney disease, or unspecified chronic kidney disease; N18.30 Chronic kidney disease, stage 3 unspecified; I50.9 Heart failure, unspecified; D64.9 Anemia, unspecified; I48.91 Unspecified atrial fibrillation; Z96.0 Presence of urogenital implants; Z79.891 Long term (current) use of opiate analgesic; Z03.818 Encounter for observation for suspected exposure to other biological agents ruled out
CPT/HCPCS: 0241U; 36415; 71045; 74177; 80053; 81001; 82947; 83605; 83690; 83735; 84484; 85007; 85027; 85610; 87040; 87077; 87086; 87088; 87186; 87205; 93005; 96361; 96365; 96366; 96367; 96375; 99285; J2270; J2310; J2405; J2543; J3371; P9047; Q9967

== ENCOUNTER → 2024-04-25 16:20 | Outpatient (BNV) | payer MEDICARE, SELFPAY | PROVIDERS: Emergency Provider Internal Medicine; Visit Provider Internal Medicine | DX: R94.31 Abnormal electrocardiogram [ECG] [EKG] (principal) | CPT/HCPCS: 93010 ==

== ENCOUNTER 2024-05-19 12:15 | Inpatient (IN) | payer MEDICARE, SELFPAY ==
--- NOTE | ~2024-05-19 | XR_ITS ---
EXAMINATION: XR CHEST CLINICAL INFORMATION: Pneumonia. COMPARISON: Chest radiograph dated 04/25/2024. TECHNIQUE: 2 views of the chest were obtained. FINDINGS: The heart is normal in size. There is uncoiling of the thoracic aorta. Diffuse increased interstitial lung markings are unchanged when compared with the prior study. No overt pulmonary edema. No consolidation. No pleural effusion or pneumothorax. There are degenerative changes of the left glenohumeral joint. XR/XR chest 2V IMPRESSION: Chronic increased interstitial lung markings, similar to the prior study. No consolidation.
[2024-05-19 12:38] VITALS: BP 107/74; PULSE 100
[2024-05-19 13:01] VITALS: BP 93/38; PULSE 88; RESP 20; TEMP 36.2; O2SAT 98; BMI 30.5
--- NOTE | 2024-05-19 13:09 | ECG_ITS ---
Test Reason : HYPOTENSIVE? Blood Pressure : / mmHG Vent. Rate : 080 BPM Atrial Rate : 080 BPM P-R Int : 260 ms QRS Dur : 146 ms QT Int : 450 ms P-R-T Axes : 019 -07 033 degrees QTc Int : 519 ms Sinus rhythm with 1st degree A-V block with occasional Premature ventricular complexes Left bundle branch block Abnormal ECG When compared with ECG of 25-APR-2024 20:00, Premature ventricular complexes are now Present Aberrant conduction is no longer Present Referred By: Fuentes Martinez Electronically Signed By:KELBY GARRETT
--- NOTE | 2024-05-19 13:13 | ED.GENADULT ---
HPI - General Adult General Chief complaint: Altered Mental Status Stated complaint: +COVID,AMS,FROM [facility] PER EMS Time Seen by Provider: 05/19/24 13:08 Source: patient and EMS History of Present Illness ED Provider: Juan COLMENARES narrative: 84-year-old male with past medical history of cardiomyopathy, CHF with EF of 25-30%, T2DM, CKD stage 3, afib on eliquis, dysphagia, LBBB, spinal stenosis, suprapubic catheter presenting for Covid. Pt is comging from [facility] where he tested positive for covid and was altered. Per EMS patient was coughing and hypoxic in transport requiring 3L NC. Here patient is A&Ox4 and satting well on room air. Pt states he felt a little short of breath earlier today however he feels fine now. He states he thinks he was told he had afib today however denies history of afib. Patient denies head pain, chest pain, abdominal pain, nausea, vomiting Related Data Home Medications ?Medication ?Instructions ?Recorded ?Confirmed acetaminophen 325 mg tablet 650 mg PO Q4H PRN Pain 12/17/20 03/12/24 cyanocobalamin (vitamin B-12) 1,000 mcg PO DAILY 12/17/20 03/12/24 1,000 mcg tablet escitalopram oxalate 10 mg tablet 20 mg PO DAILY 12/17/20 03/12/24 fluticasone propionate 50 1 spray intranasal DAILY 12/17/20 03/12/24 mcg/actuation nasal spray,suspension multivitamin 1 tab PO DAILY 12/17/20 03/12/24 oxycodone 5 mg tablet 10 mg PO BID 12/17/20 03/12/24 oxycodone 5 mg tablet 10 mg PO Q6H PRN Pain 12/17/20 03/12/24 apixaban 2.5 mg tablet 2.5 mg PO BID 08/17/21 03/12/24 calcium polycarbophil 625 mg tablet 625 mg PO BID 10/17/23 03/12/24 lidocaine 4 % topical patch 1 patch topical DAILY 10/17/23 03/12/24 mirabegron 50 mg tablet,extended 50 mg PO DAILY 10/17/23 03/12/24 release 24 hr ondansetron 4 mg disintegrating 4 mg PO Q6H PRN Nausea 10/17/23 03/12/24 tablet Previous Rx's ?Medication ?Instructions ?Recorded ascorbic acid (vitamin C) 1,000 mg 1 g PO DAILY 90 days #90 tabs 09/22/21 tablet methenamine hippurate 1 gram tablet 1 g PO DAILY 90 days #90 tabs 09/22/21 cefuroxime axetil 500 mg tablet 500 mg PO BID #14 tabs 03/01/24 Allergies Allergy/AdvReac Type Severity Reaction Status Date / Time codeine AdvReac Intermediate Vomiting Verified 05/19/24 13:04 morphine AdvReac Intermediate Vomiting Verified 05/19/24 13:04 Review of Systems Review of Systems: Patient endorses experiencing shortness of breath earlier in the day today Patient denies head pain, neck pain, chest pain, abdominal pain, nausea, vomiting, diarrhea Yes all other systems are reviewed and are negative PMFSH Past Medical History Medical History Bacteriuria Cellulitis of scrotum PONV (postoperative nausea and vomiting) Cardiomyopathy COVID-19 vaccine series completed Depression Venous insufficiency Dysphagia senior care resident Carbuncle of gluteal region C. 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 Housing: Group Home Housing Other:: [place] [facility] Are you a primary resident care aide to a significant other at home: No Do you presently have visiting nurse or other home services: Yes (SNF) Unable to assess alcohol history related to: Unknown Alcohol intake: never Comment: resting in bed, eyes closed Patient Tobacco Use Status: Former Tobacco user Smoked in Last 30 Days: No Use of substances other than those prescribed or required for medical reasons: No Advance Directives: Yes Advance Directives on File: Yes Advance Directives Date on File: 10/17/23 service: Yes Current occupational status: retired Physical Exam ED Vital Signs: Vital Signs - 24 hr 05/19/24 13:01 05/19/24 15:22 Temperature 97.1 F Pulse Rate 88 79 Respiratory Rate 20 18 Blood Pressure 93/38 L 114/50 L Pulse Oximetry 98 98 Oxygen Delivery Method Nasal Cannula Nasal Cannula Oxygen Flow Rate 2 BMI result Body Mass Index 30.5 Head normocephalic atraumatic. Patient is a and O x4. Lungs clear to auscultation bilaterally. Normal S1-S2 regular rate and rhythm. Abdomen is soft nontender nondistended. Suprapubic catheter site clean, nontender, dry without surrounding erythema. Mild lower extremity edema appreciated Course Reevaluation(s) Reevaluation #1: Patient found to be hypoxic to 83%. Placed on nasal cannula with improvement Time: 14:34 Reevaluation #2: I do not believe patient to be septic Time: 14:35 Medications Administered Discontinued Medications Generic Name Dose Route Start Last Admin Trade Name Freq PRN Reason Stop Dose Admin Doxycycline Monohydrate 100 mg 05/19/24 14:46 05/19/24 15:19 Doxycycline Monohydrate 100 Mg Capsule PO 05/19/24 14:47 100 mg ONCE ONE Administration Ceftriaxone Sodium 1 gm/ 50 mls @ 100 mls/hr 05/19/24 14:46 05/19/24 15:21 Sodium Chloride IV 05/19/24 15:15 100 mls/hr ONCE ONE Administration Medical Decision Making Medical Decision Making [facility] Narrative: Patient reportedly sent to the hospital for altered mental status and COVID positive Patient is currently on altered and vitals are stable I will work him up for pneumonia vs other underlying infection, electrolyte/metabolic disturbance, cardiac arrhythmia No concern for stroke or head bleed at this time Patient was found to be hypoxic to 83% on room air. He was placed on nasal cannula. Ceftriaxone and doxycycline for presumed respiratory infection CXR showing hazy left lung field; chronic per radiologist read I spoke with hospitalist who will admit patient Differential Diagnosis Differential Diagnoses: The differential diagnosis associated with the presentation includes COVID, UTI, pneumonia, electrolyte/metabolic disturbance, cardiac arrhythmia No concern for stroke, head bleed Consult Healthcare Provider Management of the patient was discussed with: Hospitalist Accepted patient for admission Lab Data [facility] Lab Attestation statement: I reviewed the patient's lab results. H&H stable, normal VBG, normal white count 05/19/24 13:39 05/19/24 13:39 Labs: Lab Results 05/19/24 05/19/24 05/19/24 Range/Units 13:39 13:40 15:25 WBC 5.9 (4.8-10.8) X10*3/uL RBC 2.87 L (4.60-5.80) X10*6/uL Hgb 8.6 L (14.0-18.0) g/dl Hct 27.4 L (42.0-52.0) % MCV 95.5 (80.0-98.0) fL MCH 30.0 (27.0-33.0) pg MCHC 31.4 (31.0-36.0) g/dl RDW 19.5 H (11.0-16.0) % Plt Count 169 D (160-400) X10*3/uL MPV 9.7 (9.4-12.4) fL Immature Gran % (Auto) 0.7 H (0.0-0.4) % Neut % (Auto) 73.3 H (45-73) % Lymph % (Auto) 15.1 L (20-40) % [place] % (Auto) 8.8 (2-11) % Eos % (Auto) 1.4 (0-4) % Baso % (Auto) 0.7 (0-2) % Lymph # (Auto) 0.9 L (1.2-4.9) X10*3/uL [place] # (Auto) 0.5 (0.1-1.2) X10*3/uL Eos # (Auto) 0.1 (0.0-0.4) X10*3/uL Baso # (Auto) 0.0 (0.0-0.2) X10*3/uL Abs Immat Gran (auto) 0.04 H (0.00-0.03) X10*3/uL Absolute Neuts (auto) 4.3 (2.0-8.3) x10*3/uL Absolute Nucleated RBC 0.000 (0.0-0.012) X10*3/uL Nucleated RBC % (auto) 0.0 (0.0-0.2) /100WBC VBG pH 7.49 H (7.32-7.43) VBG pCO2 49 mmHg VBG pO2 52 mmHg VBG HCO3 38 H (22-26) mmol/L VBG O2 Saturation 81.0 % VBG Base Excess 13.4 mmol/L Sodium 141 (135-145) mmol/L Potassium 4.5 (3.3-5.1) mmol/L Chloride 101 (96-108) mmol/L Carbon Dioxide 32 H (22-29) mmol/L Anion Gap 13 (12-20) BUN 13 (9-16) mg/dL Creatinine 1.03 (0.5-1.4) mg/dL Estim Creat Clear Calc 63.6 Estimated GFR > 60 Random Glucose 96 (60-115) mg/dL Lactic Acid 1.0 (0.5-2.0) mmol/L Calcium 8.9 (8.4-10.2) mg/dL Total Bilirubin 0.3 (0.0-1.0) mg/dL AST 25 (5-37) U/L ALT 12 (0-40) U/L Alkaline Phosphatase 62 (39-117) U/L Troponin I High Sens 13.3 (<3.5-35.0) ng/L Total Protein 6.6 (6.5-8.0) g/dL Albumin 2.8 L (3.5-5.0) g/dL Urine Color Urine Appearance Urine pH (5.0-9.0) Ur Specific [place] (1.005-1.025) Urine Protein (Neg-Trace) mg/dL Urine Glucose (UA) (Negative) mg/dL Urine Ketones (Negative) mg/dL Urine Blood (Negative) Urine Nitrite (Negative) Ur Leukocyte Esterase (Negative) Influenza Type A (PCR) NEGATIVE (Negative) Influenza Type B (PCR) NEGATIVE (Negative) RSV RNA Qual (PCR) NEGATIVE (Negative) SARS-CoV-2 RNA (RT-PCR) POSITIVE A (Negative) 05/19/24 Range/Units 16:09 WBC (4.8-10.8) X10*3/uL RBC (4.60-5.80) X10*6/uL Hgb (14.0-18.0) g/dl Hct (42.0-52.0) % MCV (80.0-98.0) fL MCH (27.0-33.0) pg MCHC (31.0-36.0) g/dl RDW (11.0-16.0) % Plt Count (160-400) X10*3/uL MPV (9.4-12.4) fL Immature Gran % (Auto) (0.0-0.4) % Neut % (Auto) (45-73) % Lymph % (Auto) (20-40) % [place] % (Auto) (2-11) % Eos % (Auto) (0-4) % Baso % (Auto) (0-2) % Lymph # (Auto) (1.2-4.9) X10*3/uL [place] # (Auto) (0.1-1.2) X10*3/uL Eos # (Auto) (0.0-0.4) X10*3/uL Baso # (Auto) (0.0-0.2) X10*3/uL Abs Immat Gran (auto) (0.00-0.03) X10*3/uL Absolute Neuts (auto) (2.0-8.3) x10*3/uL Absolute Nucleated RBC (0.0-0.012) X10*3/uL Nucleated RBC % (auto) (0.0-0.2) /100WBC VBG pH (7.32-7.43) VBG pCO2 mmHg VBG pO2 mmHg VBG HCO3 (22-26) mmol/L VBG O2 Saturation % VBG Base Excess mmol/L Sodium (135-145) mmol/L Potassium (3.3-5.1) mmol/L Chloride (96-108) mmol/L Carbon Dioxide (22-29) mmol/L Anion Gap (12-20) BUN (9-16) mg/dL Creatinine (0.5-1.4) mg/dL Estim Creat Clear Calc Estimated GFR Random Glucose (60-115) mg/dL Lactic Acid (0.5-2.0) mmol/L Calcium (8.4-10.2) mg/dL Total Bilirubin (0.0-1.0) mg/dL AST (5-37) U/L ALT (0-40) U/L Alkaline Phosphatase (39-117) U/L Troponin I High Sens (<3.5-35.0) ng/L Total Protein (6.5-8.0) g/dL Albumin (3.5-5.0) g/dL Urine Color Yellow Urine Appearance Cloudy Urine pH 8.5 (5.0-9.0) Ur Specific [place] 1.010 (1.005-1.025) Urine Protein 30 (1+) H (Neg-Trace) mg/dL Urine Glucose (UA) Negative (Negative) mg/dL Urine Ketones Negative (Negative) mg/dL Urine Blood Small (1+) H (Negative) Urine Nitrite Positive H (Negative) Ur Leukocyte Esterase Large (3+) H (Negative) Influenza Type A (PCR) (Negative) Influenza Type B (PCR) (Negative) RSV RNA Qual (PCR) (Negative) SARS-CoV-2 RNA (RT-PCR) (Negative) Independent Interpretation I performed an independent interpretation of an: EKG and Plain X-Ray Interpretation: EKG similar to prior Hazy left lung Radiology Impression Discussion of test interpretation with radiology: I have reviewed the radiologist's reading. Radiologist Impression: Chronic increased interstitial lung markings, similar to the prior study. No consolidation. Discharge Plan Discharge Clinical Impression: Hypoxia Patient Disposition: Admitted As Inpatient
[2024-05-19 13:44] LABS: MANUAL DIFF FLAG NO
[2024-05-19 13:48] LABS: Basophils Percent Auto 0.7 % (0-2); Eosinophils Absolute Auto 0.1 X10*3/uL (0.0-0.4); Eosinophils Percent Auto 1.4 % (0-4); Hematocrit 27.4 % (42.0-52.0); Hemoglobin 8.6 g/dl (14.0-18.0); Imm Gran Abs Auto 0.04 X10*3/uL (0.00-0.03); Imm Gran Pct Auto 0.7 % (0.0-0.4); Lymphocytes Absolute Auto 0.9 X10*3/uL (1.2-4.9); Lymphocytes Percent Auto 15.1 % (20-40); Mean Corpuscular HGB Conc 31.4 g/dl (31.0-36.0); Mean Corpuscular Volume 95.5 fL (80.0-98.0); Mean Platelet Volume 9.7 fL (9.4-12.4); Monocytes Absolute Auto 0.5 X10*3/uL (0.1-1.2); Monocytes Percent Auto 8.8 % (2-11); Neutrophils Absolute Auto 4.3 x10*3/uL (2.0-8.3); Neutrophils Percent Auto 73.3 % (45-73); Platelet Count 169 X10*3/uL (160-400); Red Blood Count 2.87 X10*6/uL (4.60-5.80); Red Cell Distribution Width 19.5 % (11.0-16.0); White Blood Count 5.9 X10*3/uL (4.8-10.8)
[2024-05-19 13:48] LABS: Venous Blood Gas Refer to POC result
[2024-05-19 13:48] LABS: VBG Base Excess 13.4 mmol/L; VBG HCO3 38 mmol/L (22-26); VBG pCO2 49 mmHg; VBG pH 7.49 (7.32-7.43); VBG pO2 52 mmHg
[2024-05-19 14:04] LABS: Alanine Aminotransferase 12 U/L (0-40); Albumin Level 2.8 g/dL (3.5-5.0); Alkaline Phosphatase 62 U/L (39-117); Anion Gap 13 (12-20); Aspartate Amino Transferase 25 U/L (5-37); Bilirubin Total 0.3 mg/dL (0.0-1.0); Blood Urea Nitrogen 13 mg/dL (9-16); Calcium 8.9 mg/dL (8.4-10.2); Carbon Dioxide 32 mmol/L (22-29); Chloride 101 mmol/L (96-108); Creatinine Clr Calc Pharmacy 63.6; Estimated Glomerular Filt Rate > 60; Glucose Random 96 mg/dL (60-115); Potassium 4.5 mmol/L (3.3-5.1); Sodium 141 mmol/L (135-145); Total Protein 6.6 g/dL (6.5-8.0)
[2024-05-19 14:11] LABS: Troponin-I High Sensitivity 13.3 ng/L (<3.5-35.0)
[2024-05-19] MEDS: Doxycycline Monohydrate 100 MG CAPSULE PO (15:19)
[2024-05-19] MEDS: cefTRIAXone sodium 1 GM in 0.9 % Sodium Chloride 50 ML IV (15:21)
--- NOTE | 2024-05-19 15:21 | PC.NURSE ---
Per provider no [place] needed as long as BP with a systolic greater than 100, Bp 114/50
[2024-05-19 15:22] VITALS: BP 114/50; PULSE 79; RESP 18; O2SAT 98
[2024-05-19 16:08] LABS: Influenza A PCR NEGATIVE (Negative); Influenza B PCR NEGATIVE (Negative); Resp Syncy Virus RNA Qual PCR NEGATIVE (Negative); SARS COV2 PCR INHOUSE POSITIVE (Negative)
[2024-05-19 16:15] LABS: Appearance Urine Cloudy; Color Urine Yellow; Glucose Urine UA Negative (Negative); Leukocyte Esterase Urine Large (3+) (Negative); Nitrite Urine Positive (Negative); PH 8.5 (5.0-9.0); UMIC TRIGGER UACC YES; Urine Blood Small (1+) (Negative); Urine Ketones Negative (Negative); Urine Protein 30 (1+) mg/dL (Neg-Trace)
[2024-05-19 16:18] LABS: Bacteria Urine 4+ (None Seen); Squamous Epithelial Cell Urine 0-2 /HPF (0-2); UACC Culture Trigger YES; WBC Urine >50 /HPF (0-5)
--- NOTE | 2024-05-19 16:28 | P.HPHOSP_ITS ---
History of Present Illness Date of Service: 05/19/24 Attending physician on admission: Richa Willard Chief Complaint[facility] 84[facility] with history of sdw-[id number]-[id number] type 2 diabetes with diabetic polyneuropathy, autonomic dysfunction, BPH, unspecified dementia, CKD stage 3, paroxysmal atrial fibrillation anticoagulated with Eliquis, anemia of chronic disease who presented to the ED earlier today from [facility] due to altered mental status, atrial fibrillation with highly variable heart rates ranging 34-230 per RN. He was recently admitted to [facility] from 05/05-05/13 for management of acute encephalopathy secondary to stercoral colitis and was treated with Levaquin and metronidazole as well as aggressive mineral oil enemas with improvement in mental status. Per the nurse at [facility], patient is now having multiple episodes of diarrhea on a daily basis. The patient reports this morning was feeling nauseous with a ?funny feeling? in his abdomen. He he denies any significant abdominal pain, vomiting, constipation, melena, hematochezia, cough, lightheadedness, sore throat, congestion, palpitations, or chest pain. The nurse denies any fevers or chills. She reports that when checking the patient's vital signs, patient's heart rate was varying between 34-30 with hypotension at 78/58. There is no EKG available for review. Since arrival, patient has been in normal sinus rhythm on the monitor with heart rates varying 70s-80s without any episodes of hypotension. He has been noted to be hypoxic to 83% on room air and is now on 2 L maintaining oximetry around 96%. He is afebrile. There is no leukocytosis. He has a chronic normocytic anemia with H/H 8.6/27.4%. Renal function baseline, electrolyte levels normal except for CO2 32. Follow-up VBG showed pH 7.49, pCO2 49, bicarb 38. Urinalysis significant for 3+ leukocytes, positive nitrites, 1+ blood, 1+ protein, significant urinary sediment 4+ bacteria. He is positive for COVID-19 which was initially diagnosed 05/14. [facility], patient has highly variable blood pressures with hypotension. CXR shows chronically increased interstitial marking similar to priors but no acute cardiopulmonary abn, no pneumonia. IN the ED received iv ctx and doxy. Review of Systems 2 Review of Systems: Yes all other systems are reviewed and are negative [facility] Medical History Autonomic dysfunction with type 2 diabetes mellitus Bacteriuria Cellulitis of scrotum PONV (postoperative nausea and vomiting) Cardiomyopathy COVID-19 vaccine series completed Depression Venous insufficiency Dysphagia long-term resident Carbuncle of gluteal region C. difficile colitis Left bundle branch block Spinal stenosis Urine retention Osteoarthritis Benign prostate hyperplasia Hypertension CKD (chronic kidney disease) stage 3, GFR 30-59 ml/min CHF (congestive heart failure) Type 2 diabetes mellitus Atrial fibrillation Family History Other No family history of cardiovascular disease Surgical History History of incision and drainage History of ligation of vein H/O spinal fusion Social History Household Members: Other Household Members [facility] Housing: Longterm Housing Other:: [facility] Are you a primary auto care center manager to a significant other at home: No Do you presently have visiting nurse or other home services: Yes (SNF) Unable to assess alcohol history related to: Unknown Alcohol intake: never Comment: resting in bed, eyes closed Patient Tobacco Use Status: Former Tobacco user Smoked in Last 30 Days: No Use of substances other than those prescribed or required for medical reasons: No Advance Directives: Yes Advance Directives on File: Yes Advance Directives Date on File: 10/17/23 service: Yes Current occupational status: retired Meds Allergies Allergy/AdvReac Type Severity Reaction Status Date / Time codeine AdvReac Intermediate Vomiting Verified 05/19/24 13:04 morphine AdvReac Intermediate Vomiting Verified 05/19/24 13:04 Active Medications: Current Medications Acetaminophen (Acetaminophen 325 Mg Tablet) 650 mg PO Q6H PRN PRN Reason: Pain, Mild (Pain Scale 1-3), fever or headache Albuterol/Ipratropium (Albuterol/Iprat 2.5/0.5mg 3 Ml Ampul.Neb) 3 ml INHALE RQ4H WHILE AWAKE PRN PRN Reason: Shortness of Breath/Wheezing Apixaban (Apixaban 5 Mg Tablet) 5 mg PO BID ROXANN Calcium Carbonate (Calcium Carbonate 750 Mg Tab.Chew) 750 mg PO Q4H PRN PRN Reason: Heartburn Dexamethasone Sodium Phosphate (Dexamethasone Sod Phosphate 4 Mg/Ml Vial) 6 mg IVPUSH DAILY [facility] Guaifenesin (Guaifenesin 200 Mg/10 Ml 10 Ml Liquid) 10 ml PO Q6H PRN PRN Reason: Cough Magnesium Hydroxide (Milk Of Magnesia 30 Ml Oral.Susp) 30 ml PO DAILY PRN PRN Reason: Constipation Melatonin (Melatonin 3 Mg Tablet) 6 mg PO BEDTIME PRN PRN Reason: Insomnia Sodium Chloride (0.9 % Sodium Chloride Flush 3 Ml Syringe) 3 ml IVFLUSH QSHIFT [facility] Home Medications ?Medication ?Instructions ?Recorded ?Confirmed ?Last Taken ?Type acetaminophen 325 mg tablet 650 mg PO Q4H PRN Pain 12/17/20 05/19/24 12/20/21 History cyanocobalamin (vitamin B-12) 1,000 mcg PO DAILY 12/17/20 05/19/24 05/19/24 10:00 History 1,000 mcg tablet escitalopram oxalate 10 mg tablet 20 mg PO DAILY 12/17/20 05/19/24 05/19/24 10:00 History fluticasone propionate 50 1 spray intranasal DAILY 12/17/20 05/19/24 05/19/24 10:00 History mcg/actuation nasal spray,suspension multivitamin 1 tab PO DAILY 12/17/20 05/19/24 05/19/24 10:00 History oxycodone 5 mg tablet 10 mg PO Q6H PRN Pain 12/17/20 05/19/24 Unknown History lidocaine 4 % topical patch 1 patch topical DAILY 10/17/23 05/19/24 05/19/24 09:00 History mirabegron 50 mg tablet,extended 50 mg PO DAILY 10/17/23 05/19/24 05/19/24 09:00 History release 24 hr ondansetron 4 mg disintegrating 4 mg PO Q6H PRN Nausea 10/17/23 05/19/24 Unknown History tablet apixaban 2.5 mg tablet (Eliquis) See Rx Instructions .Route .COMPLEX 05/19/24 05/19/24 05/15/24 09:00 History ascorbic acid (vitamin C) 500 mg 1,000 mg PO DAILY 05/19/24 05/19/24 05/19/24 10:00 History tablet guaifenesin 100 mg/5 mL oral liquid 200 mg PO Q4H PRN Cough 05/19/24 05/19/24 Unknown History lactulose 10 gram/15 mL oral 30 ml PO TID 05/19/24 05/19/24 05/19/24 09:00 History solution loperamide 2 mg tablet 2 mg PO Q3H PRN Loose Stool 05/19/24 05/19/24 05/18/24 History ondansetron 4 mg disintegrating 4 mg PO DIRECTED PRN Prior to 05/19/24 05/19/24 05/18/24 History tablet Automobile Travel to Appointments polyethylene glycol 3350 17 17 g PO DAILY 05/19/24 05/19/24 05/19/24 09:00 History gram/dose oral powder potassium chloride 20 mEq 20 meq PO BID 05/19/24 05/19/24 05/19/24 09:00 History tablet,extended release sennosides 8.6 mg tablet (senna) 17.2 mg PO DAILY 05/19/24 05/19/24 05/19/24 09:00 History sodium phosphates 19 gram-7 118 ml VT DAILY PRN Constipation 05/19/24 05/19/24 Unknown History gram/118 mL enema (Fleet Enema) thiamine mononitrate (vit B1) 100 100 mg PO DAILY 05/19/24 05/19/24 05/19/24 09:00 History mg tablet Physical Exam 2 Vital Signs and Narrative: Vital Signs: Last Vital Signs Temp 97.1 F 05/19/24 13:01 Pulse 79 05/19/24 15:22 Resp 18 05/19/24 15:22 BP 114/50 L 05/19/24 15:22 Pulse Ox 98 05/19/24 15:22 O2 Del Method Nasal Cannula 05/19/24 15:22 O2 Flow Rate 2 05/19/24 15:22 Oxygen Flow Rate 3 05/19/24 13:01 BMI result Body Mass Index 30.5 Constitutional - Awake and Alert, No apparent distress Eyes - PERRLA, EOMI Cardiovascular - S1S2, RRR, No edema Respiratory - Normal lung expansion, Normal respiratory effort, No respiratory distress, CTA bilaterally Gastrointestinal - NT / ND; +BS; No rebound or guarding Extremities - no calf tenderness bilaterally, no swelling with Skin - Warm/Dry Neurological - Alert & oriented x3, CN II-XII in tact, 5/5 strength BUE and BLE Psychological - Appropriate affect Results Labs 05/19/24 13:39 05/19/24 13:39 Labs: Laboratory Results - last 24 hr 05/19/24 05/19/24 05/19/24 13:39 13:40 15:25 MCV 95.5 MCH 30.0 MCHC 31.4 RDW 19.5 H Plt Count 169 D MPV 9.7 Immature Gran % (Auto) 0.7 H Neut % (Auto) 73.3 H Lymph % (Auto) 15.1 L Saline % (Auto) 8.8 Eos % (Auto) 1.4 Baso % (Auto) 0.7 Lymph # (Auto) 0.9 L Saline # (Auto) 0.5 Eos # (Auto) 0.1 Baso # (Auto) 0.0 Abs Immat Gran (auto) 0.04 H Absolute Neuts (auto) 4.3 Absolute Nucleated RBC 0.000 Nucleated RBC % (auto) 0.0 VBG pH 7.49 H VBG pCO2 49 VBG pO2 52 VBG HCO3 38 H VBG O2 Saturation 81.0 VBG Base Excess 13.4 Anion Gap 13 Estim Creat Clear Calc 63.6 Estimated GFR > 60 Random Glucose 96 Lactic Acid 1.0 Calcium 8.9 Total Bilirubin 0.3 AST 25 ALT 12 Alkaline Phosphatase 62 Troponin I High Sens 13.3 Total Protein 6.6 Albumin 2.8 L Urine Color Urine Appearance Urine pH Ur Specific [place] Urine Protein Urine Glucose (UA) Urine Ketones Urine Blood Urine Nitrite Ur Leukocyte Esterase Influenza Type A (PCR) NEGATIVE Influenza Type B (PCR) NEGATIVE RSV RNA Qual (PCR) NEGATIVE SARS-CoV-2 RNA (RT-PCR) POSITIVE A 05/19/24 16:09 MCV MCH MCHC RDW Plt Count MPV Immature Gran % (Auto) Neut % (Auto) Lymph % (Auto) Saline % (Auto) Eos % (Auto) Baso % (Auto) Lymph # (Auto) Saline # (Auto) Eos # (Auto) Baso # (Auto) Abs Immat Gran (auto) Absolute Neuts (auto) Absolute Nucleated RBC Nucleated RBC % (auto) VBG pH VBG pCO2 VBG pO2 VBG HCO3 VBG O2 Saturation VBG Base Excess Anion Gap Estim Creat Clear Calc Estimated GFR Random Glucose Lactic Acid Calcium Total Bilirubin AST ALT Alkaline Phosphatase Troponin I High Sens Total Protein Albumin Urine Color Yellow Urine Appearance Cloudy Urine pH 8.5 Ur Specific [place] 1.010 Urine Protein 30 (1+) H Urine Glucose (UA) Negative Urine Ketones Negative Urine Blood Small (1+) H Urine Nitrite Positive H Ur Leukocyte Esterase Large (3+) H Influenza Type A (PCR) Influenza Type B (PCR) RSV RNA Qual (PCR) SARS-CoV-2 RNA (RT-PCR) Imaging Radiologist's Impressions: Impressions Chest X-Ray 05/19/24 14:10 IMPRESSION: Chronic increased interstitial lung markings, similar to the prior study. No consolidation. Assessment and Plan (1) Acute hypoxemic respiratory failure: Status: Acute (2) COVID-19: Status: Acute Plan 84-year-old male with history of [id number] type 2 diabetes with diabetic polyneuropathy, autonomic dysfunction, BPH, unspecified dementia, CKD stage 3, paroxysmal atrial fibrillation anticoagulated with Eliquis, anemia of chronic disease admitted for further management acute hypoxemic respiratory failure due to covid19 #acute hypoxemic respiratory failure due to covid19 -Initial dx 05/14. CXR negative for pneumonia -no leukocytosis, no viral sepsis -IV dexamethasone 6 mg daily given hypoxia. Hold on antiviral therapy at this time. Discontinue Paxlovid -continue supplemental O2 to maintain oximetry greater than 92%, wean as tolerated per protocol -symptomatic management -airborne/contact precautions # acute metabolic encephalopathy-resolved on admission -possibly related to episodes of hypotension earlier in the day reported by SNF nursing staff. No further episodes of hypotension. Hypotension related to autonomic dysfunction, not sepsis -monitor mentation # acute diarrhea -recent admission for stercoral colitis started on lactulose and MiraLax and senna. However, was treated with iv levaquin and flagyl at [facility] -Hold lactulose and miralax -check cdiff, gi panel -resume constiaption meds gradually as appropriate #Autonomic dysfunction -likely causing significant variations in HR and bp noted at facility though not witnesshere -monitor VS closely, consider midodrine if indicated #Transient third degree heart block [place] [facility] [place]. Returned to first degree av block (noted on today's ekg). Not taken for pacemaker -monitor on telemetry given significant variations in HR noted by facility staff # paroxysmal atrial fibrillation-rate controlled -per RN, was experiencing episodes of bradycardia and tachycardia ranging 34-30 at the facility, however on monitor has been noted to be in sinus rhythm with heart rates ranging 70-80s -monitor on telemetry. EKG showed sinus rhythm with first-degree AV rebecca block with occasional PVCs and known left bundle branch block. Rate 80 -Resume eliquis (had been on hold due to paxlovid use). Increase dose to 5 mg twice daily given normal renal function, appropriate weight. Not on rate control medications # [id number] type 2 diabetes -POC glucose, diabetic diet (chopped with pills in puree per facility) -Humalog on sliding scale # BPH with LUTS -continue methenamine, mirabegron # anemia of chronic disease -H/H above transfusion threshold DVT prophylaxis-Eliquis Full code per [facility] form Patient requires inpatient stay at least 2 midnights for management of COVID-19 with associated acute hypoxemic respiratory failure requiring supplemental O2, IV steroids and close monitoring of vital signs to monitor and prevent decompensation Quality Stroke Does the patient have a stroke diagnosis?: No VTE Prior VTE?: No VTE Risk Level:: Medical - moderate - high VTE Device Contraindication: Treatment Not Indicated VTE Drug Contraindication: N/A - Med Ordered
--- NOTE | 2024-05-19 16:31 | PHA.MEDREC ---
Addendum entered by Yoandy Stewart [facility] 05/19/24 16:58: Checked by [facility] Original Note: Pharmacy Consult ? Medication Reconciliation Pharmacy has completed the medication reconciliation. Confirmed medications with list Provided by [facility]. The list claimed the patient had his Eliquis 2.5mg tab DC'd 05/15/2024 and is resuming this med 05/20/24 @2100 according to his list from [facility].
[2024-05-19] MEDS: dexAMETHasone sod phosphate 4 MG/ML VIAL 6 MG IVPUSH (16:56)
[2024-05-19 17:05] VITALS: BP 110/64; PULSE 78; RESP 23; TEMP 36.7; O2SAT 100
--- NOTE | 2024-05-19 18:04 | PC.NURSE ---
Addendum entered by Nelly Gipson RN 05/19/24 18:12: Patient with chronic suprapubic draining clear yellow urine Original Note: 84-year-old male with history of [id number] type 2 diabetes with diabetic polyneuropathy, autonomic dysfunction, BPH, unspecified dementia, CKD stage 3, paroxysmal atrial fibrillation anticoagulated with Eliquis, anemia of chronic disease admitted for further management acute hypoxemic respiratory failure due to covid19. Patient is alert and oriented from [facility] , 20g IV in left AC. Nurse at facility reports patient was having diarrhea however has not had any loose stools while in the ed. Still need to collect cdiff specimen and GI panel. NSR on monitor, sating 97% on 2 liters 02.
--- NOTE | 2024-05-19 19:10 | PC.NURSE ---
Report taken from Nelly LAMB, assumed care of pt at this time. Pt resting eyes closed, respirations even unlabored. VSS. Awaiting bed assignment for admission. Pt niece updated on plan of care.
[2024-05-19 21:09] VITALS: BP 128/65; PULSE 81; RESP 20; O2SAT 98
[2024-05-19] MEDS: Potassium Chloride ER 20 MEQ TAB.ER.PRT PO (22:05)
[2024-05-19] MEDS: Apixaban 5 MG TABLET PO (22:05)
[2024-05-19 22:13] VITALS: BP 117/65; PULSE 84; RESP 20; O2SAT 99
[2024-05-20] MEDS: 0.9 % Sodium Chloride Flush 3 ML SYRINGE IVFLUSH ×3 (00:29→11:31)
--- NOTE | 2024-05-20 00:30 | PC.NURSE ---
Pt resting comfortably NAD. Awaiting bed assignment for admission.
[2024-05-20 02:21] VITALS: BP 125/68; PULSE 81; RESP 26; TEMP 36.6; O2SAT 96
[2024-05-20 05:18] LABS: Basophils Percent Auto 0.2 % (0-2); Hematocrit 31.2 % (42.0-52.0); Hemoglobin 9.3 g/dl (14.0-18.0); Imm Gran Abs Auto 0.02 X10*3/uL (0.00-0.03); Imm Gran Pct Auto 0.5 % (0.0-0.4); Lymphocytes Absolute Auto 0.3 X10*3/uL (1.2-4.9); Lymphocytes Percent Auto 7.4 % (20-40); MANUAL DIFF FLAG SCAN; Mean Corpuscular HGB Conc 29.8 g/dl (31.0-36.0); Mean Corpuscular Hemoglobin 28.7 pg (27.0-33.0); Mean Corpuscular Volume 96.3 fL (80.0-98.0); Mean Platelet Volume 9.8 fL (9.4-12.4); Monocytes Absolute Auto 0.1 X10*3/uL (0.1-1.2); Monocytes Percent Auto 1.4 % (2-11); Neutrophils Absolute Auto 3.9 x10*3/uL (2.0-8.3); Neutrophils Percent Auto 90.5 % (45-73); Platelet Count 182 X10*3/uL (160-400); Red Blood Count 3.24 X10*6/uL (4.60-5.80); Red Cell Distribution Width 19.4 % (11.0-16.0); SCAN SMEAR FLAG 1; White Blood Count 4.3 X10*3/uL (4.8-10.8)
[2024-05-20 05:29] LABS: Anion Gap 14 (12-20); Blood Urea Nitrogen 14 mg/dL (9-16); Calcium 9.1 mg/dL (8.4-10.2); Carbon Dioxide 29 mmol/L (22-29); Chloride 102 mmol/L (96-108); Estimated Glomerular Filt Rate > 60; Glucose Random 154 mg/dL (60-115); Potassium 5.4 mmol/L (3.3-5.1); Sodium 140 mmol/L (135-145)
[2024-05-20 05:39] VITALS: BP 107/59; PULSE 84; RESP 25; TEMP 36.9; O2SAT 97
[2024-05-20 05:41] LABS: SLIDE REVIEW VERIFIED
[2024-05-20 07:06] VITALS: BP 116/62; PULSE 76; RESP 11; O2SAT 97
[2024-05-20 07:07] LABS: Glucose, Whole Blood 137 mg/dL (60-115)
--- NOTE | 2024-05-20 09:42 | MHC.CM.PN ---
IMM 05/20/24, pt lives at the [facility]. HCP on file and confirmed: Allyson Nunez. Pt. does not know his doctor's name, he has a new one. He uses a W/C, someone has to push him. He does not use supplemental O2 at baseline. DCP: Pt. will return to [facility] via BLS. CM to follow and assist with DC plan.
[2024-05-20] MEDS: Escitalopram Oxalate 20 MG TABLET PO (11:25)
[2024-05-20] MEDS: Potassium Chloride ER 20 MEQ TAB.ER.PRT PO (11:25)
[2024-05-20] MEDS: Cyanocobalamin (Vitamin B-12) 1,000 MCG TABLET 1000 MCG PO (11:25)
[2024-05-20] MEDS: Mirabegron 50 MG TAB.ER.24H PO (11:26)
[2024-05-20] MEDS: Methenamine Hippurate 1 GM TABLET PO (11:26)
[2024-05-20] MEDS: Lidocaine 4 % Patch ADH..PATCH 1 PATCH TRANSDERMA (11:26)
[2024-05-20] MEDS: Thiamine HCL 100 MG TABLET PO (11:26)
[2024-05-20] MEDS: Ascorbic Acid 500 MG TABLET 1000 MG PO (11:26)
[2024-05-20] MEDS: Multivitamin TABLET 1 TAB PO (11:26)
[2024-05-20] MEDS: Sennosides 8.6 MG TABLET 17.2 MG PO (11:26)
[2024-05-20] MEDS: Apixaban 5 MG TABLET PO ×2 (11:26→21:46)
[2024-05-20] MEDS: dexAMETHasone sod phosphate 4 MG/ML VIAL 6 MG IVPUSH (11:31)
[2024-05-20 12:07] LABS: Glucose, Whole Blood 139 mg/dL (60-115)
--- NOTE | 2024-05-20 15:10 | HO.PM.IMPN ---
Subjective Subjective Date of Service: 05/20/24 Interval History: Being followed for variable heart rate, altered mental status, diarrhea and COVID-19 infection with hypoxia. At present patient offers no acute complaints denies abdominal pain no nausea no vomiting no diarrhea oxygenation is stable denies chest pain, no palpitation, only complaint is feeling cold requesting for soup and juice. Review of Systems All other system reviewed and are negative. Physical Exam Vital Signs: Vital Signs: Last Vital Signs Temp 98.4 F 05/20/24 05:39 Pulse 76 05/20/24 07:06 Resp 11 L 05/20/24 07:06 BP 116/62 05/20/24 07:06 Pulse Ox 97 05/20/24 07:06 O2 Del Method Room Air, Nasal C annula 05/20/24 07:06 O2 Flow Rate 2 05/20/24 07:06 Oxygen Flow Rate 3 05/19/24 13:01 BMI result Body Mass Index 30.5 Const: Other: General resting comfortably in no acute distress. Neck no JVD. CVS regular rate rhythm, Respiratory lungs clear to auscultation, no respiratory distress, no wheeze, no rhonchi. Gastrointestinal abdomen soft, non tender, bowel sounds audible,no guarding , no rigidity. Extremities no edema. Neuro non focal , speech clear. Skin no rash Appropriate affect Objective Data Active Medications Acetaminophen (Acetaminophen 325 Mg Tablet) 650 mg PO Q6H PRN PRN Reason: Pain, Mild (Pain Scale 1-3), fever or headache Albuterol/Ipratropium (Albuterol/Iprat 2.5/0.5mg 3 Ml Ampul.Neb) 3 ml INHALE RQ4H WHILE AWAKE PRN PRN Reason: Shortness of Breath/Wheezing Apixaban (Apixaban 5 Mg Tablet) 5 mg PO BID [facility] Last Admin: 05/20/24 11:26 Dose: 5 mg Documented By: QUEENIE Ascorbic Acid (Ascorbic Acid 500 Mg Tablet) 1,000 mg PO DAILY [facility] Last Admin: 05/20/24 11:26 Dose: 1,000 mg Documented By: QUEENIE Calcium Carbonate (Calcium Carbonate 750 Mg Tab.Chew) 750 mg PO Q4H PRN PRN Reason: Heartburn Cyanocobalamin (Cyanocobalamin (Vitamin B-12) 1,000 Mcg Tablet) 1,000 mcg PO DAILY [facility] Last Admin: 05/20/24 11:25 Dose: 1,000 mcg Documented By: QUEENIE Dexamethasone Sodium Phosphate (Dexamethasone Sod Phosphate 4 Mg/Ml Vial) 6 mg IVPUSH DAILY [facility] Last Admin: 05/20/24 11:31 Dose: 6 mg Documented By: QUEENIE Escitalopram Oxalate (Escitalopram Oxalate 20 Mg Tablet) 20 mg PO DAILY [facility] Last Admin: 05/20/24 11:25 Dose: 20 mg Documented By: QUEENIE Fluticasone Propionate (Fluticasone Propionate Nasal [address] [place] [place]) 1 spray NOSTRIL-B DAILY [facility] Last Admin: 05/20/24 14:44 Dose: Not Given Documented By: QUEENIE Non-Admin Reason: Med Not Available Glucose (Glucose Gel 15 Gm Gel..Gram.) 15 gm PO Q15M PRN; Protocol PRN Reason: per Hypoglycemia Standing Ord. Guaifenesin (Guaifenesin 200 Mg/10 Ml 10 Ml Liquid) 10 ml PO Q6H PRN PRN Reason: Cough Dextrose (D10) 250 mls @ 750 mls/hr IV Q15M PRN; Protocol PRN Reason: per Hypoglycemia Standing Ord. Ceftriaxone Sodium 1 gm/ (Sodium Chloride) 50 mls @ 100 mls/hr IV Q24H [facility] Insulin Human Lispro (Insulin Lispro 100 Unit/Ml 3 Ml Vial) 0 unit SUBCUT QIDACHS [facility]; Protocol Last Admin: 05/20/24 14:44 Dose: Not Given Documented By: QUEENIE Non-Admin Reason: No Insulin Coverage Lidocaine (Lidocaine 4 % Patch Adh..Patch) 1 patch TRANSDERMA DAILY [facility]; Protocol Last Admin: 05/20/24 11:26 Dose: 1 patch Documented By: QUEENIE Magnesium Hydroxide (Milk Of Magnesia 30 Ml Oral.Susp) 30 ml PO DAILY PRN PRN Reason: Constipation Melatonin (Melatonin 3 Mg Tablet) 6 mg PO BEDTIME PRN PRN Reason: Insomnia Methenamine Hippurate (Methenamine Hippurate 1 Gm Tablet) 1 gm PO DAILY [facility] Last Admin: 05/20/24 11:26 Dose: 1 gm Documented By: QUEENIE Mirabegron (Mirabegron 50 Mg Tab.Er.24h) 50 mg PO DAILY [facility] Last Admin: 05/20/24 11:26 Dose: 50 mg Documented By: QUEENIE Multivitamins/Vitamin C (Multivitamin Tablet) 1 tab PO DAILY [facility] Last Admin: 05/20/24 11:26 Dose: 1 tab Documented By: QUEENIE Ondansetron HCl (Ondansetron Odt 4 Mg Tab.Rapdis) 4 mg TRANSLINGU Q6H PRN PRN Reason: Nausea Oxycodone HCl (Oxycodone Hcl Immed Release 5 Mg Tablet) 10 mg PO Q6H PRN PRN Reason: Pain, Severe (Pain Scale 7-10) Potassium Chloride (Potassium Chloride Er 20 Meq Tab.Er.Prt) 20 meq PO BID [facility] Last Admin: 05/20/24 11:25 Dose: 20 meq Documented By: QUEENIE Senna (Sennosides 8.6 Mg Tablet) 17.2 mg PO DAILY [facility] Last Admin: 05/20/24 11:26 Dose: 17.2 mg Documented By: QUEENIE Sodium Chloride (0.9 % Sodium Chloride Flush 3 Ml Syringe) 3 ml IVFLUSH QSHIFT [facility] Last Admin: 05/20/24 11:31 Dose: 3 ml Documented By: QUEENIE Thiamine HCl (Thiamine Hcl 100 Mg Tablet) 100 mg PO DAILY [facility] Last Admin: 05/20/24 11:26 Dose: 100 mg Documented By: QUEENIE Labs 05/20/24 04:35 05/20/24 04:35 Labs: Laboratory Results - last 24 hr 05/19/24 05/19/24 05/20/24 15:25 16:09 04:35 MCV 96.3 MCH 28.7 MCHC 29.8 L RDW 19.4 H Plt Count 182 MPV 9.8 Immature Gran % (Auto) 0.5 H Neut % (Auto) 90.5 H Lymph % (Auto) 7.4 L [place] % (Auto) 1.4 L Eos % (Auto) 0.0 Baso % (Auto) 0.2 Lymph # (Auto) 0.3 L [place] # (Auto) 0.1 Eos # (Auto) 0.0 Baso # (Auto) 0.0 Abs Immat Gran (auto) 0.02 Absolute Neuts (auto) 3.9 Absolute Nucleated RBC 0.000 Nucleated RBC % (auto) 0.0 Smear Tech's Comments VERIFIED Anion Gap 14 Estim Creat Clear Calc 63.0 Estimated GFR > 60 POC Glucose Random Glucose 154 H Calcium 9.1 Urine Color Yellow Urine Appearance Cloudy Urine pH 8.5 Ur Specific [place] 1.010 Urine Protein 30 (1+) H Urine Glucose (UA) Negative Urine Ketones Negative Urine Blood Small (1+) H Urine Nitrite Positive H Ur Leukocyte Esterase Large (3+) H Urine RBC 6-10 H Urine WBC >50 H Ur Squamous Epith Cells 0-2 Urine Bacteria 4+ Hyaline Casts 3-5 Influenza Type A (PCR) NEGATIVE Influenza Type B (PCR) NEGATIVE RSV RNA Qual (PCR) NEGATIVE SARS-CoV-2 RNA (RT-PCR) POSITIVE A 05/20/24 05/20/24 07:03 11:51 MCV MCH MCHC RDW Plt Count MPV Immature Gran % (Auto) Neut % (Auto) Lymph % (Auto) [place] % (Auto) Eos % (Auto) Baso % (Auto) Lymph # (Auto) [place] # (Auto) Eos # (Auto) Baso # (Auto) Abs Immat Gran (auto) Absolute Neuts (auto) Absolute Nucleated RBC Nucleated RBC % (auto) Smear Tech's Comments Anion Gap Estim Creat Clear Calc Estimated GFR POC Glucose 137 H 139 H Random Glucose Calcium Urine Color Urine Appearance Urine pH Ur Specific [place] Urine Protein Urine Glucose (UA) Urine Ketones Urine Blood Urine Nitrite Ur Leukocyte Esterase Urine RBC Urine WBC Ur Squamous Epith Cells Urine Bacteria Hyaline Casts Influenza Type A (PCR) Influenza Type B (PCR) RSV RNA Qual (PCR) SARS-CoV-2 RNA (RT-PCR) Microbiology Microbiology Results: Microbiology 05/19/24 16:09 Urine Culture - Preliminary Urine Other - Suprapubic Culture in progress. Assessment and Plan (1) COVID-19: Status: Acute (2) Acute hypoxemic respiratory failure: Status: Acute Plan 84-year-old male with history of [id number]-[id number] type 2 diabetes with diabetic polyneuropathy, autonomic dysfunction, BPH, unspecified dementia, CKD stage 3, paroxysmal atrial fibrillation anticoagulated with Eliquis, anemia of chronic disease admitted for further management acute hypoxemic respiratory failure due to covid19 #acute hypoxemic respiratory failure due to covid19 -Initial dx 05/14. CXR negative for pneumonia -no leukocytosis, no viral sepsis -IV dexamethasone 6 mg daily d2, given hypoxia. Hold on antiviral therapy at this time. Paxlovid discontinued on admission -continue supplemental O2 to maintain oximetry greater than 92%, wean as tolerated per protocol -symptomatic management -airborne/contact precautions, if remains stable will transition to by mouth steroids and discharge back to [facility]. # acute metabolic encephalopathy-resolved on admission -possibly related to episodes of hypotension earlier in the day reported by SNF nursing staff. No further episodes of hypotension. Hypotension related to autonomic dysfunction, not sepsis No recurrent confusion # acute diarrhea -recent admission for stercoral colitis started on lactulose and MiraLax and senna. However, was treated with iv levaquin and flagyl at [facility] -Hold lactulose and miralax -no recurrent diarrhea, C diff gene PCR not sent #Autonomic dysfunction -likely causing significant variations in HR and bp noted at facility though not witnesshere -tele monitor showed no arrhythmias stable ventricular rate #Transient third degree heart block -noted at [facility] [place]. Returned to first degree av block (noted on today's ekg). Not taken for pacemaker -no heart blocks noted on tele monitor # paroxysmal atrial fibrillation-rate controlled with episodes of bradycardia at nursing facility -EKG showed sinus rhythm with first-degree AV rebecca block with occasional PVCs and known left bundle branch block. Rate 80 -Resume eliquis (had been on hold due to paxlovid use). Increase dose to 5 mg twice daily given normal renal function, appropriate weight. Not on rate control medications # [id number] type 2 diabetes -POC glucose, diabetic diet (chopped with pills in puree per facility) -Humalog on sliding scale # BPH with LUTS -continue methenamine, mirabegron # anemia of chronic disease -H/H above transfusion threshold DVT prophylaxis-Eliquis Full code per [facility] form Patient requires continued inpatient hospitalization for management of COVID-19 with associated acute hypoxemic respiratory failure requiring supplemental O2, IV steroids and close monitoring of vital signs to monitor and prevent decompensation Quality Stroke Does the patient have a stroke diagnosis?: No VTE Prior VTE?: No VTE Risk Level:: Medical - moderate - high VTE Device Contraindication: Treatment Not Indicated VTE Drug Contraindication: N/A - Med Ordered
[2024-05-20 15:56] LABS: Glucose, Whole Blood 172 mg/dL (60-115)
[2024-05-20] MEDS: cefTRIAXone sodium 1 GM in 0.9 % Sodium Chloride 50 ML IV (16:32)
[2024-05-20 16:56] VITALS: BP 130/71; PULSE 62; RESP 20; TEMP 36.1; O2SAT 94
[2024-05-20] MEDS: Insulin Lispro 100 UNIT/ML 3 ML VIAL SUBCUT (18:29)
[2024-05-20 20:00] VITALS: BP 130/68; PULSE 72; RESP 20; TEMP 36.2; O2SAT 96
[2024-05-20 20:54] LABS: Glucose, Whole Blood 138 mg/dL (60-115)
[2024-05-20 23:22] LABS: CDiff Gene PCR NEGATIVE (Negative)
[2024-05-21] VITALS (7 sets, daily range): BP systolic 114–128; BP diastolic 55–65; PULSE 72–85; RESP 18–20; TEMP 36.2–36.7; O2SAT 94–97
[2024-05-21] MEDS: 0.9 % Sodium Chloride Flush 3 ML SYRINGE IVFLUSH ×4 (00:45→21:30)
[2024-05-21 07:49] LABS: Glucose, Whole Blood 118 mg/dL (60-115)
[2024-05-21] MEDS: Methenamine Hippurate 1 GM TABLET PO (08:14)
[2024-05-21] MEDS: Escitalopram Oxalate 20 MG TABLET PO (08:14)
[2024-05-21] MEDS: Ascorbic Acid 500 MG TABLET 1000 MG PO (08:14)
[2024-05-21] MEDS: Apixaban 5 MG TABLET PO ×2 (08:17→21:21)
[2024-05-21] MEDS: Thiamine HCL 100 MG TABLET PO (08:17)
[2024-05-21] MEDS: Mirabegron 50 MG TAB.ER.24H PO (08:17)
[2024-05-21] MEDS: Lidocaine 4 % Patch ADH..PATCH 1 PATCH TRANSDERMA (08:18)
[2024-05-21] MEDS: Sennosides 8.6 MG TABLET 17.2 MG PO (08:18)
[2024-05-21] MEDS: Cyanocobalamin (Vitamin B-12) 1,000 MCG TABLET 1000 MCG PO (08:18)
[2024-05-21] MEDS: Multivitamin TABLET 1 TAB PO (08:18)
[2024-05-21] MEDS: dexAMETHasone sod phosphate 4 MG/ML VIAL 6 MG IVPUSH (08:20)
[2024-05-21] MEDS: bisacodyL 10 MG SUPP.RECT PR (11:22)
[2024-05-21 11:33] LABS: Glucose, Whole Blood 147 mg/dL (60-115)
[2024-05-21] MEDS: cefTRIAXone sodium 1 GM in 0.9 % Sodium Chloride 50 ML IV (14:41)
--- NOTE | 2024-05-21 15:11 | P.PNIM_ITS ---
Subjective Subjective Date of Service: 05/21/24 Interval History: Being followed for variable heart rate, altered mental status, diarrhea and COVID-19 infection with hypoxia. Complaining of abdominal pain, otherwise offers no acute complaints, no urinary symptoms of urgency or frequency, no acute overnight events Review of Systems All other system reviewed and are negative. Physical Exam 2 Vital Signs: Vital Signs: Last Vital Signs Temp 97.4 F 05/21/24 11:24 Pulse 72 05/21/24 11:24 Resp 20 05/21/24 11:24 BP 119/65 05/21/24 11:24 Pulse Ox 94 05/21/24 11:24 O2 Del Method Nasal Cannula 05/21/24 11:24 O2 Flow Rate 2 05/21/24 11:24 Oxygen Flow Rate 3 05/19/24 13:01 BMI result Body Mass Index 30.5 Const: Other: General resting comfortably in no acute distress. Neck no JVD. CVS regular rate rhythm, Respiratory lungs clear to auscultation, no respiratory distress, no wheeze, no rhonchi. Gastrointestinal abdomen soft, bowel sounds audible,no guarding , no rigidity. Extremities no edema. Neuro non focal , speech clear. Skin no rash Appropriate affect Objective Data Active Medications Acetaminophen (Acetaminophen 325 Mg Tablet) 650 mg PO Q6H PRN PRN Reason: Pain, Mild (Pain Scale 1-3), fever or headache Albuterol/Ipratropium (Albuterol/Iprat 2.5/0.5mg 3 Ml Ampul.Neb) 3 ml INHALE RQ4H WHILE AWAKE PRN PRN Reason: Shortness of Breath/Wheezing Apixaban (Apixaban 5 Mg Tablet) 5 mg PO BID [facility] Last Admin: 05/21/24 08:17 Dose: 5 mg Documented By: MESSI Ascorbic Acid (Ascorbic Acid 500 Mg Tablet) 1,000 mg PO DAILY [facility] Last Admin: 05/21/24 08:14 Dose: 1,000 mg Documented By: MESSI Calcium Carbonate (Calcium Carbonate 750 Mg Tab.Chew) 750 mg PO Q4H PRN PRN Reason: Heartburn Cyanocobalamin (Cyanocobalamin (Vitamin B-12) 1,000 Mcg Tablet) 1,000 mcg PO DAILY [facility] Last Admin: 05/21/24 08:18 Dose: 1,000 mcg Documented By: MESSI Dexamethasone Sodium Phosphate (Dexamethasone Sod Phosphate 4 Mg/Ml Vial) 6 mg IVPUSH DAILY [facility] Last Admin: 05/21/24 08:20 Dose: 6 mg Documented By: MESSI Escitalopram Oxalate (Escitalopram Oxalate 20 Mg Tablet) 20 mg PO DAILY [facility] Last Admin: 05/21/24 08:14 Dose: 20 mg Documented By: MESSI Fluticasone Propionate (Fluticasone Propionate Nasal 16 Gm [place]) 1 spray NOSTRIL-B DAILY [facility] Last Admin: 05/21/24 08:30 Dose: Not Given Documented By: MESSI Non-Admin Reason: Patient Refused Glucose (Glucose Gel 15 Gm Gel..Gram.) 15 gm PO Q15M PRN; Protocol PRN Reason: per Hypoglycemia Standing Ord. Guaifenesin (Guaifenesin 200 Mg/10 Ml 10 Ml Liquid) 10 ml PO Q6H PRN PRN Reason: Cough Dextrose (D10) 250 mls @ 750 mls/hr IV Q15M PRN; Protocol PRN Reason: per Hypoglycemia Standing Ord. Ceftriaxone Sodium 1 gm/ (Sodium Chloride) 50 mls @ 100 mls/hr IV Q24H [facility] Last Admin: 05/21/24 14:41 Dose: 100 mls/hr Documented By: MESSI Insulin Human Lispro (Insulin Lispro 100 Unit/Ml 3 Ml Vial) 0 unit SUBCUT QIDACHS [facility]; Protocol Last Admin: 05/21/24 11:30 Dose: Not Given Documented By: MESSI Non-Admin Reason: No Insulin Coverage Lidocaine (Lidocaine 4 % Patch Adh..Patch) 1 patch TRANSDERMA DAILY [facility]; Protocol Last Admin: 05/21/24 08:18 Dose: 1 patch Documented By: MESSI Magnesium Hydroxide (Milk Of Magnesia 30 Ml Oral.Susp) 30 ml PO DAILY PRN PRN Reason: Constipation Melatonin (Melatonin 3 Mg Tablet) 6 mg PO BEDTIME PRN PRN Reason: Insomnia Methenamine Hippurate (Methenamine Hippurate 1 Gm Tablet) 1 gm PO DAILY [facility] Last Admin: 05/21/24 08:14 Dose: 1 gm Documented By: MESSI Mirabegron (Mirabegron 50 Mg Tab.Er.24h) 50 mg PO DAILY [facility] Last Admin: 05/21/24 08:17 Dose: 50 mg Documented By: MESSI Multivitamins/Vitamin C (Multivitamin Tablet) 1 tab PO DAILY [facility] Last Admin: 05/21/24 08:18 Dose: 1 tab Documented By: MESSI Ondansetron HCl (Ondansetron Odt 4 Mg Tab.Rapdis) 4 mg TRANSLINGU Q6H PRN PRN Reason: Nausea Senna (Sennosides 8.6 Mg Tablet) 17.2 mg PO DAILY [facility] Last Admin: 05/21/24 08:18 Dose: 17.2 mg Documented By: MESSI Sodium Chloride (0.9 % Sodium Chloride Flush 3 Ml Syringe) 3 ml IVFLUSH QSHIFT [facility] Last Admin: 05/21/24 14:46 Dose: 3 ml Documented By: MESSI Thiamine HCl (Thiamine Hcl 100 Mg Tablet) 100 mg PO DAILY [facility] Last Admin: 05/21/24 08:17 Dose: 100 mg Documented By: MESSI Labs 05/20/24 04:35 05/20/24 04:35 Labs: Laboratory Results - last 24 hr 05/20/24 05/20/24 05/20/24 15:48 20:48 22:10 POC Glucose 172 H 138 H C. difficile Tox B Gene NEGATIVE 05/21/24 05/21/24 07:44 11:25 POC Glucose 118 H 147 H C. difficile Tox B Gene Microbiology Microbiology Results: Microbiology 05/19/24 16:09 Urine Culture - Preliminary Urine Other - Suprapubic Culture in progress. Assessment and Plan (1) Acute hypoxemic respiratory failure: Status: Acute Plan 84-year-old male with history of [id number] type 2 diabetes with diabetic polyneuropathy, autonomic dysfunction, BPH, unspecified dementia, CKD stage 3, paroxysmal atrial fibrillation anticoagulated with Eliquis, anemia of chronic disease admitted for further management acute hypoxemic respiratory failure due to covid19 #acute hypoxemic respiratory failure due to covid19 -Initial dx 05/14. CXR negative for pneumonia -no leukocytosis, no viral sepsis -IV dexamethasone 6 mg daily d3, given hypoxia. Hold on antiviral therapy at this time. Paxlovid discontinued on admission -continue supplemental O2 to maintain oximetry greater than 92%, wean as tolerated per protocol -symptomatic management -airborne/contact precautions, will transition to by mouth steroids and discharge back to [facility]. # UA positive continue IV ceftriaxone follow urine culture # mild hyperkalemia likely due to potassium replacement, repeat lab at a.m. # acute metabolic encephalopathy-resolved on admission -possibly related to episodes of hypotension earlier in the day reported by [facility] nursing staff. No further episodes of hypotension. Hypotension related to autonomic dysfunction, not sepsis No recurrent confusion # acute diarrhea -recent admission for stercoral colitis started on lactulose and MiraLax and senna and was treated with iv levaquin and flagyl at [facility] -this morning complain of abdominal discomfort treated with suppository with good response -follow closely for recurrent diarrhea, avoid constipation #Autonomic dysfunction -likely causing significant variations in HR and bp noted at facility though not witnesshere -tele monitor showed no arrhythmias stable ventricular rate #Transient third degree heart block -noted at [facility] admission. Returned to first degree av block (noted on today's ekg). Not taken for pacemaker -no heart blocks noted on tele monitor # paroxysmal atrial fibrillation-rate controlled with episodes of bradycardia at nursing facility -EKG showed sinus rhythm with first-degree AV rebecca block with occasional PVCs and known left bundle branch block. Rate 80 -Resume eliquis (had been on hold due to paxlovid use). Increase dose to 5 mg twice daily given normal renal function, appropriate weight. Not on rate control medications # [id number] type 2 diabetes -POC glucose, diabetic diet (chopped with pills in puree per facility) -Humalog on sliding scale # BPH with LUTS -continue methenamine, mirabegron # anemia of chronic disease -H/H above transfusion threshold DVT prophylaxis-Eliquis Full code per [facility] form Patient requires continued inpatient hospitalization for management of COVID-19 with associated acute hypoxemic respiratory failure requiring supplemental O2, IV steroids and close monitoring of vital signs to monitor and prevent decompensation Quality Stroke Does the patient have a stroke diagnosis?: No VTE Prior VTE?: No VTE Risk Level:: Medical - moderate - high VTE Device Contraindication: Treatment Not Indicated VTE Drug Contraindication: N/A - Med Ordered
[2024-05-21 16:52] LABS: Glucose, Whole Blood 149 mg/dL (60-115)
[2024-05-21 20:16] LABS: Glucose, Whole Blood 154 mg/dL (60-115)
[2024-05-21] MEDS: Melatonin 3 MG TABLET 6 MG PO (21:21)
[2024-05-21] MEDS: Insulin Lispro 100 UNIT/ML 3 ML VIAL SUBCUT (21:29)
[2024-05-22 03:14] VITALS: BP 118/56; PULSE 72; RESP 20; TEMP 36.7; O2SAT 95
[2024-05-22 07:49] LABS: Glucose, Whole Blood 135 mg/dL (60-115)
[2024-05-22 07:50] VITALS: BP 114/62; PULSE 85; RESP 19; TEMP 36.7; O2SAT 95
[2024-05-22] MEDS: Apixaban 5 MG TABLET PO (08:21)
[2024-05-22] MEDS: Cyanocobalamin (Vitamin B-12) 1,000 MCG TABLET 1000 MCG PO (08:21)
[2024-05-22] MEDS: Thiamine HCL 100 MG TABLET PO (08:21)
[2024-05-22] MEDS: Methenamine Hippurate 1 GM TABLET PO (08:21)
[2024-05-22] MEDS: Mirabegron 50 MG TAB.ER.24H PO (08:21)
[2024-05-22] MEDS: Escitalopram Oxalate 20 MG TABLET PO (08:21)
[2024-05-22] MEDS: Multivitamin TABLET 1 TAB PO (08:21)
[2024-05-22] MEDS: Sennosides 8.6 MG TABLET 17.2 MG PO (08:21)
[2024-05-22] MEDS: Ascorbic Acid 500 MG TABLET 1000 MG PO (08:21)
[2024-05-22] MEDS: dexAMETHasone sod phosphate 4 MG/ML VIAL 6 MG IVPUSH (08:22)
[2024-05-22] MEDS: Lidocaine 4 % Patch ADH..PATCH 1 PATCH TRANSDERMA (08:22)
[2024-05-22] MEDS: 0.9 % Sodium Chloride Flush 3 ML SYRINGE IVFLUSH (08:28)
[2024-05-22 11:59] LABS: Glucose, Whole Blood 179 mg/dL (60-115)
[2024-05-22 12:00] VITALS: BP 115/58; PULSE 75; RESP 20; TEMP 37.2; O2SAT 91
[2024-05-22] MEDS: Insulin Lispro 100 UNIT/ML 3 ML VIAL SUBCUT (12:35)
[2024-05-22 13:10] LABS: Anion Gap 13 (12-20); Blood Urea Nitrogen 23 mg/dL (9-16); Calcium 9.3 mg/dL (8.4-10.2); Carbon Dioxide 32 mmol/L (22-29); Chloride 98 mmol/L (96-108); Creatinine Clr Calc Pharmacy 66.8; Estimated Glomerular Filt Rate > 60; Glucose Random 170 mg/dL (60-115); Potassium 4.8 mmol/L (3.3-5.1); Sodium 138 mmol/L (135-145)
--- NOTE | 2024-05-22 13:37 | P.DS_ITS ---
DS: Providers Provider Date of Service: 05/22/24 Date of admission: 05/19/24 16:11 Date of discharge: 05/22/24 Primary care physician: Medhat Fuentes MD DS: Diagnosis Discharge Diagnosis (1) Acute hypoxemic respiratory failure: Status: Acute DS: Summary Hospital Course Hospital Course: Date of Service: 05/19/24 Attending physician on admission: Richa Willard Chief Complaint[facility] 84[facility] with history of [id number]-[id number] type 2 diabetes with diabetic polyneuropathy, autonomic dysfunction, BPH, unspecified dementia, CKD stage 3, paroxysmal atrial fibrillation anticoagulated with Eliquis, anemia of chronic disease who presented to the ED earlier today from [facility] due to altered mental status, atrial fibrillation with highly variable heart rates ranging 34-230 per RN. He was recently admitted to [facility] from 05/05-05/13 for management of acute encephalopathy secondary to stercoral colitis and was treated with Levaquin and metronidazole as well as aggressive mineral oil enemas with improvement in mental status. Per the nurse at [facility], patient is now having multiple episodes of diarrhea on a daily basis. The patient reports this morning was feeling nauseous with a ?funny feeling? in his abdomen. He he denies any significant abdominal pain, vomiting, constipation, melena, hematochezia, cough, lightheadedness, sore throat, congestion, palpitations, or chest pain. The nurse denies any fevers or chills. She reports that when checking the patient's vital signs, patient's heart rate was varying between 34-30 with hypotension at 78/58. There is no EKG available for review. Since arrival, patient has been in normal sinus rhythm on the monitor with heart rates varying 70s-80s without any episodes of hypotension. He has been noted to be hypoxic to 83% on room air and is now on 2 L maintaining oximetry around 96%. He is afebrile. There is no leukocytosis. He has a chronic normocytic anemia with H/H 8.6/27.4%. Renal function baseline, electrolyte levels normal except for CO2 32. Follow-up VBG showed pH 7.49, pCO2 49, bicarb 38. Urinalysis significant for 3+ leukocytes, positive nitrites, 1+ blood, 1+ protein, significant urinary sediment 4+ bacteria. He is positive for COVID-19 which was initially diagnosed 05/14. [facility], patient has highly variable blood pressures with hypotension. CXR shows chronically increased interstitial marking similar to priors but no acute cardiopulmonary abn, no pneumonia. IN the ED received iv ctx and doxy. Hospital course: 84-year-old male with history of ecp-awzwcsr-loanrmkun type 2 diabetes with diabetic polyneuropathy, autonomic dysfunction, BPH, unspecified dementia, CKD stage 3, paroxysmal atrial fibrillation anticoagulated with Eliquis, anemia of chronic disease admitted for further management acute hypoxemic respiratory failure due to covid19 initially diagnosed on 05/14, patient admitted to isolation unit, chest x-ray negative for pneumonia, no leukocytosis no viral sepsis treated with IV dexamethasone given hypoxia, at present hypoxia resolved patient denies shortness of breath therefore [facility] for 2 more days. Paxlovid discontinued. UTI, on admission noted to have positive urinalysis therefore placed on IV ceftriaxone urine culture however grew multiple organisms including Gram- negative rods greater than 100,000, Enterococcus and Streptococcus 50,200 1000, given multiple bacteria likely colonization, patient recently treated at [facility] with Levaquin therefore will hold off on further treatment for Enterococcus, in regard to gm negative rods will finish a total 7 day course of antibiotics with Ceftin 250 mg 1 tablet twice daily. Recommend to follow final urine culture report and a repeat urinalysis mild hyperkalemia likely due to potassium replacement, will discontinue potassium supplements repeat potassium normalized. acute metabolic encephalopathy-resolved on admission resolved was likely due to infection. acute diarrhea -recent admission for stercoral colitis started on lactulose and MiraLax and senna and was treated with iv levaquin and flagyl at [facility], lactulose discontinued C diff test negative, recommend to adjust Bowel meds as tolerated. Transient third degree heart block -noted at [facility] admission. Returned to first degree av block (noted on admission ekg). Tele monitor showed no heart blocks, no bradycardia, remains in normal sinus rhythm, History of paroxysmal atrial fibrillation currently rate controlled in normal sinus rhythm continue Eliquis iih-clikrcd-bhwzhfzos type 2 diabetes continue treatment as before. BPH with LUTS -continue methenamine, mirabegron anemia of chronic disease stable H&H Time Attestation Discharge Coordination Time (in mins): 40 Quality: Safe Use of Opioids Does Pt have an Active Cancer Diagnosis on the Problem List?: No Quality: Stroke Does the patient have a stroke diagnosis?: No Physical Exam Vital Signs: Vital Signs: Last Vital Signs Temp 98.0 F 05/22/24 07:50 Pulse 85 05/22/24 07:50 Resp 19 05/22/24 07:50 BP 114/62 05/22/24 07:50 Pulse Ox 95 05/22/24 07:50 O2 Del Method Nasal Cannula 05/22/24 07:50 O2 Flow Rate 2 05/22/24 07:50 Oxygen Flow Rate 3 05/19/24 13:01 BMI result Body Mass Index 30.5 Const: Other: General resting comfortably in no acute distress. Neck no JVD. CVS regular rate rhythm, Respiratory lungs clear to auscultation, no respiratory distress, no wheeze, no rhonchi. Gastrointestinal abdomen soft, bowel sounds audible,no guarding , no rigidity. Suprapubic catheter site is clean Extremities no edema. Neuro non focal , speech clear. Skin no rash Appropriate affect DS: Data Data Completed and Pending Completed studies during hospitalization [Text1]: Procedures Drainage of Inguinal Skin, External Approach (12/17/20) Fluoroscopy of Bladder and Urethra using Low Osmolar Contrast (10/17/23) Labs on day of discharge: Laboratory Results - last 24 hr 05/21/24 05/21/24 05/22/24 16:34 20:05 07:34 Sodium Potassium Chloride Carbon Dioxide Anion Gap BUN Creatinine Estim Creat Clear Calc Estimated GFR POC Glucose 149 H 154 H 135 H Random Glucose Calcium 05/22/24 05/22/24 05/22/24 11:36 12:51 12:51 Sodium 138 Potassium 4.8 Cancelled Chloride 98 Carbon Dioxide 32 H Anion Gap 13 BUN 23 H Creatinine 0.98 Estim Creat Clear Calc 66.8 Estimated GFR > 60 POC Glucose 179 H Random Glucose 170 H Calcium 9.3 Preliminary micro results at discharge 05/19/24 16:09 Urine Culture - Preliminary Urine Other - Suprapubic Gram negative kristine Enterococcus/Streptococcus sp Discharge Plan Discharge Anticipated Discharge Date/Time: 05/22/24 11:21 Patient Disposition: Xfer SNF Discharge Diagnosis: Acute hypoxic respiratory failure due to COVID-19. Referrals: [facility] [Outside] - 1 Week (TRANSFER FOR RESUMPTION [facility] CARE) Physician,Unknown J [Physician] - 1 Week Discharge Medications: New cefuroxime axetil 250 mg tablet 250 mg PO BID Qty: 10 0RF dexamethasone 6 mg tablet 6 mg PO DAILY Qty: 3 0RF Continued multivitamin Tablet 1 tab PO DAILY cyanocobalamin (vitamin B-12) 1,000 mcg Tablet 1,000 mcg PO DAILY fluticasone propionate 50 mcg/actuation [place],Suspension 1 spray INTRANASAL DAILY oxycodone 5 mg Tablet 10 mg PO Q6H PRN (Reason: Pain) escitalopram oxalate 10 mg Tablet 20 mg PO DAILY acetaminophen 325 mg Tablet 650 mg PO Q4H PRN (Reason: Pain) lidocaine 4 % Adhesive Patch,Medicated 1 patch TOPICAL DAILY ondansetron 4 mg Tablet,Disintegrating 4 mg PO Q6H PRN (Reason: Nausea) mirabegron 50 mg Tablet Extended Release 24 Hr 50 mg PO DAILY sennosides [senna] 8.6 mg Tablet 17.2 mg PO DAILY loperamide 2 mg Tablet 2 mg PO Q3H PRN (Reason: Loose Stool) Rx Instructions: administer after each loose stool until symptoms controlled; do not exceed 8 mg per 24 hrs guaifenesin 100 mg/5 mL Liquid 200 mg PO Q4H PRN (Reason: Cough) ascorbic acid (vitamin C) 500 mg Tablet 1,000 mg PO DAILY Fleet Enema 19-7 gram/118 mL Enema 118 ml TN DAILY PRN (Reason: Constipation) polyethylene glycol 3350 17 gram/dose Powder 17 g PO DAILY ondansetron 4 mg Tablet,Disintegrating 4 mg PO DIRECTED PRN (Reason: Prior to Automobile Travel to Appointments) thiamine mononitrate (vit B1) 100 mg Tablet 100 mg PO DAILY Eliquis 2.5 mg Tablet See Rx Instructions .ROUTE .COMPLEX Rx Instructions: Patient had this med DC'd 05/15/2024, they shall resume this med 05/20/24 @2100 according to [facility] list [facility]. methenamine hippurate 1 gram tablet 1 g PO DAILY 90 Days Qty: 90 1RF Discontinued lactulose 10 gram/15 mL Solution 30 ml PO TID potassium chloride 20 mEq Tablet Extended Release 20 meq PO BID Discharge Orders: Discharge Order (Routine); Ordered 05/22/24 Ordered By: Richa Willard Diet: Diabetic diet Activity on Discharge: As tolerated Stand Alone Forms: Patient Portal Discharge page Print Language: Tamazight Care Plan Goals: UA positive, urine culture grew multiple organisms Gram-negative rods, Enterococcus and Streptococcus on po Ceftin, please follow final urine culture report patient asymptomatic. Take dexamethasone as ordered Follow bowel pattern closely and adjust laxatives accordingly Resume Eliquis 2.5 mg b.i.d. Health Concerns: Diabetes mellitus resume diet as before Plan of Treatment: Follow-up with primary care physician Assessment: as above
--- NOTE | 2024-05-22 14:13 | MHC.CM.PN ---
DP: PT HAS BEEN MEDICALLY CLEARED FOR DC BACK TO [facility] [place] NURSE UDAY UPDATED ON RETURN AND DC SUMMARY FAXED TO [phone]. BLS TRANSPORT BOOKED FOR 2 PM [facility]IA [facility]. RN NOTIFIED. NIECE/HCP BALDEV UPDATED ON RETURN.
[2024-05-22 14:43] VITALS: O2SAT 93
== END 2024-05-22 14:58 | disposition intermediate care facility (04) | DRG 177 ==
LOC: HO.ED 15:18 → HO.EDOVER 16:19 → HO.IMC 05-20 07:46
PROVIDERS: Admitting Provider Physician Assistant; Emergency Provider Student in an Organized Health Care Education/Training Program; PCP Internal Medicine; Visit Provider Hospitalist
DX: U07.1 COVID-19 (principal); G93.41 Metabolic encephalopathy; J96.01 Acute respiratory failure with hypoxia; F03.90 Unspecified dementia, unspecified severity, without behavioral disturbance, psychotic disturbance, mood disturbance, and anxiety; I48.0 Paroxysmal atrial fibrillation; I44.0 Atrioventricular block, first degree; N40.1 Benign prostatic hyperplasia with lower urinary tract symptoms; R33.8 Other retention of urine; D63.1 Anemia in chronic kidney disease; I44.7 Left bundle-branch block, unspecified; E11.42 Type 2 diabetes mellitus with diabetic polyneuropathy; N18.30 Chronic kidney disease, stage 3 unspecified; E87.5 Hyperkalemia; E11.22 Type 2 diabetes mellitus with diabetic chronic kidney disease; Z98.1 Arthrodesis status; Z79.01 Long term (current) use of anticoagulants; Z87.891 Personal history of nicotine dependence; Z79.899 Other long term (current) drug therapy
CPT/HCPCS: 0241U; 36415; 71046; 80048; 80053; 81001; 82803; 82947; 83605; 84484; 85025; 87086; 87088; 87186; 87493; 93005; 99285; J0696; J1100

== ENCOUNTER → 2024-05-19 16:11 | Outpatient (BNV) | payer MEDICARE, SELFPAY | PROVIDERS: Admitting Provider Physician Assistant; Emergency Provider Student in an Organized Health Care Education/Training Program; Visit Provider Physician Assistant | DX: U07.1 COVID-19 (principal); J96.01 Acute respiratory failure with hypoxia | CPT/HCPCS: 99223; 99232; 99233; 99239 ==

== ENCOUNTER 2024-05-28 06:41 | Outpatient (REF) | payer MEDICARE, SELFPAY ==
[2024-05-28 06:46] LABS: MANUAL DIFF FLAG NO
[2024-05-28 07:18] LABS: Basophils Percent Auto 0.1 % (0-2); Eosinophils Absolute Auto 0.2 X10*3/uL (0.0-0.4); Eosinophils Percent Auto 2.8 % (0-4); Hemoglobin 9.7 g/dl (14.0-18.0); Imm Gran Abs Auto 0.04 X10*3/uL (0.00-0.03); Imm Gran Pct Auto 0.5 % (0.0-0.4); Lymphocytes Percent Auto 12.8 % (20-40); Mean Corpuscular HGB Conc 31.3 g/dl (31.0-36.0); Mean Corpuscular Hemoglobin 29.4 pg (27.0-33.0); Mean Corpuscular Volume 93.9 fL (80.0-98.0); Monocytes Absolute Auto 0.7 X10*3/uL (0.1-1.2); Monocytes Percent Auto 8.3 % (2-11); Neutrophils Absolute Auto 6.1 x10*3/uL (2.0-8.3); Neutrophils Percent Auto 75.5 % (45-73); Platelet Count 183 X10*3/uL (160-400); Red Cell Distribution Width 19.5 % (11.0-16.0)
[2024-05-28 07:36] LABS: Alanine Aminotransferase 127 U/L (0-40); Alkaline Phosphatase 66 U/L (39-117); Amylase 41 U/L (28-100); Anion Gap 9 (12-20); Aspartate Amino Transferase 56 U/L (5-37); Bilirubin Direct 0.2 mg/dL (0.0-0.5); Bilirubin Total 0.5 mg/dL (0.0-1.0); Blood Urea Nitrogen 26 mg/dL (9-16); Calcium 8.9 mg/dL (8.4-10.2); Carbon Dioxide 33 mmol/L (22-29); Chloride 102 mmol/L (96-108); Estimated Glomerular Filt Rate > 60; Glucose Random 103 mg/dL (60-115); Lipase 15 U/L (8-78); Potassium 4.3 mmol/L (3.3-5.1); Sodium 140 mmol/L (135-145); Total Protein 6.1 g/dL (6.5-8.0)
== END 2024-05-28 06:42 | disposition home or self-care (01) ==
LOC: HO.HSH3E 06:41
PROVIDERS: Visit Provider Internal Medicine Endocrinology, Diabetes & Metabolism
DX: R10.9 Unspecified abdominal pain (principal)
CPT/HCPCS: 36415; 80048; 80076; 82150; 83690; 85025

== ENCOUNTER 2024-05-28 18:04 | Outpatient (REF) | payer MEDICARE, SELFPAY ==
[2024-05-28 18:15] LABS: Appearance Urine Turbid; Color Urine Yellow; Glucose Urine UA Negative (Negative); Leukocyte Esterase Urine Large (3+) (Negative); Nitrite Urine Positive (Negative); PH 6.5 (5.0-9.0); UMIC TRIGGER UA YES; Urine Blood Moderate (2+) (Negative); Urine Ketones Negative (Negative); Urine Protein 100 (2+) mg/dL (Neg-Trace)
[2024-05-28 18:41] LABS: Bacteria Urine 4+ (None Seen); RBC Urine >20 /HPF (0-2); Squamous Epithelial Cell Urine 0-2 /HPF (0-2); WBC Urine >50 /HPF (0-5)
== END 2024-05-28 18:05 | disposition home or self-care (01) ==
LOC: HO.HSH3E 18:04
PROVIDERS: Visit Provider Nurse Practitioner
DX: R10.9 Unspecified abdominal pain (principal)
CPT/HCPCS: 36415; 80048; 80076; 81001; 82150; 83690; 85025; 87086; 87088; 87186

== ENCOUNTER 2024-06-11 13:21 | Outpatient (AMB) | payer MEDICARE, SELFPAY ==
--- NOTE | 2024-06-11 13:23 | A.OFFVIS_ITS ---
Intake Intake Visit Reasons: UTI and suprapubic pain Intake Note: Patient presents today at [facility] for follow up uti, suprapubic catheter Urology Medications: Methenamine, Myrbetriq Antibiotic Allergy: None Blood Thinner: Apixaban [facility] Required: No Accompanied by: Self / Same As Patient Allergies codeine Adverse Reaction (Intermediate, Verified 06/11/24 21:10) Vomiting morphine Adverse Reaction (Intermediate, Verified 06/11/24 21:10) Vomiting Medication List - Last Reconciled 06/11/24 by AKILA Ponce acetaminophen 650 mg PO Q4H PRN apixaban (Eliquis) Patient had this med DC'd 05/15/2024, they shall resume this med 05/20/24 @2100 according to his list from [facility]. ascorbic acid (vitamin C) 1,000 mg PO DAILY cefuroxime axetil 250 mg PO BID cyanocobalamin (vitamin B-12) 1,000 mcg PO DAILY dexamethasone 6 mg PO DAILY escitalopram oxalate 20 mg PO DAILY fluticasone propionate 50 mcg/actuation 1 spray intranasal DAILY guaifenesin 200 mg PO Q4H PRN lidocaine 4% 1 patch topical DAILY loperamide 2 mg PO Q3H PRN methenamine hippurate 1 g PO DAILY 90 days mirabegron ER 50 mg PO DAILY multivitamin 1 tab PO DAILY ondansetron 4 mg PO Q6H PRN ondansetron 4 mg PO DIRECTED PRN oxycodone 10 mg PO Q6H PRN polyethylene glycol 3350 17 grams PO DAILY sennosides (senna) 17.2 mg PO DAILY sodium phosphates 19-7 gram/118 mL (Fleet Enema) 118 mL MA DAILY PRN thiamine mononitrate (vit B1) 100 mg PO DAILY HPI HPI Comments History of Present Illness Details Clarence is an 83 year old male patient of Dr. [facility]who [facility]. He has a past medical history of cellulitis of the scrotum, cardiomyopathy with an EF of 25-30%, depression, venous insufficiency, dysphagia, spinal stenosis, urinary retention, osteoarthritis, hypertension, chronic kidney disease stage 3, congestive heart failure, type 2 diabetes, and atrial fibrillation. He is being followed up on today for his neurogenic bladder and question of suprapubic pain. In assessment of the patient today he reports generalized pain however is vague and somewhat a poor historian throughout today's assessment and evaluation. During palpation of suprapubic site he does not report pain however seems to report generalized pain in the upper abdominal area. Suprapubic tube and site appears clean dry and intact. Jacobs is draining yellow urine. Urine culture was obtain due to vague suprapubic pain patient was reporting and has since been IV antibiotic therapy however unsure if this is colonized bacteria. [facility] Medical History Autonomic dysfunction with type 2 diabetes mellitus Bacteriuria Cellulitis of scrotum PONV (postoperative nausea and vomiting) Cardiomyopathy COVID-19 vaccine series completed Depression Venous insufficiency Dysphagia long-term resident Carbuncle of gluteal region C. difficile colitis Left bundle branch block Spinal stenosis Urine retention Osteoarthritis Benign prostate hyperplasia Hypertension CKD (chronic kidney disease) stage 3, GFR 30-59 ml/min CHF (congestive heart failure) Type 2 diabetes mellitus Atrial fibrillation Surgical History History of incision and drainage History of ligation of vein H/O spinal fusion Family History Other No family history of cardiovascular disease Social History Household Members: Other [facility] Housing Other:: [facility] Are you a primary health care specialist to a significant other at home: No Do you presently have visiting nurse or other home services: No Unable to assess alcohol history related to: Unknown Alcohol intake: never Comment: resting in bed, eyes closed Patient Tobacco Use Status: Former Tobacco user Tobacco use type: Cigarette e-Cigarette/Vaping Use: Never Used Advance Directives Date on File: 10/17/23 service: Yes Current occupational status: retired Review of Systems Const Reports as per HPI Eyes Reports no additional complaints ENT Reports no additional complaints Card Reports as per HPI Resp Reports as per HPI GI Reports as per HPI Reports as per HPI Musc Reports as per HPI Neuro Reports as per HPI Endo Reports as per HPI Uriel/Lymph Reports no additional complaints Aller/Immun Reports no additional complaints Physical Exam Const General: cooperative, no acute distress, well developed, alert and awake Nutritional Appearance: overweight Orientation/consciousness: oriented to person Limitations: other limitations (in bed) HEENT Head: Yes normal to inspection, Yes normocephalic and Yes atraumatic Ears: hearing grossly normal bilaterally Eyes General: appearance normal, both eyes and all related structures Neck Neck: Yes normal visual inspection and Yes trachea midline Chest Chest palpation & inspection: normal inspection of the chest Resp Effort & Inspection: normal respiratory effort and able to speak in complete sentences Cardio Rate: regular rate GI Inspection: Yes normal to inspection Male General Exam: Yes tenderness Penis: phimosis Scrotum: other (as per HPI) Testes: testicular tenderness bilateral Skin General skin exam: no rashes or lesions noted Neuro General: oriented to person Extrem General: Yes normal to inspection Psych Appearance: grossly normal and well kempt Mental Status: mental status grossly normal Speech and movement: Normal speech and movement present and Clear speech present Affect: normal affect Attitude: cooperative and Avoids eye contact (attititude/behavior) Insight: Fair insight present (Psych) Judgement: Fair judgement present (Psych) Assessment & Plan Assessment & Plan (1) Spastic neurogenic bladder: Code(s): N31.8 - Other neuromuscular dysfunction of bladder (2) Hypotonic neurogenic bladder: Code(s): N31.9 - Neuromuscular dysfunction of bladder, unspecified Plan Suprapubic site appears clean dry and intact. Recommended using flip flow valve. Continue IV antibiotics. Can obtain retroperitoneal ultrasound Discussed holding methenamine and vitamin-C while on treatment for UTI and restart once antibiotic therapy is completed. Continue changing suprapubic tube catheters as ordered. Follow-up in 6 months; or sooner with any issues, concerns, and or questions. Patient Instructions: The patient had an opportunity to ask questions regarding the treatment plan. All questions were answered. Physical exam, labs, and imaging were discussed and reviewed in detail. As well as risks, benefits, and discussion of treatment choices. No major barriers to understanding were identified. The patient expressed understanding and agreement with the above treatment plan. The patient was made aware they should contact our office by phone for worsening of their current condition, the appearance of new symptoms, or with any questions or concerns. Compliance is encouraged with any medications and follow up testing that is ordered. It is a privilege to be allowed the opportunity to participate in? your urological care.? Again, if you have any questions or concerns If you have any questions or concerns please do not hesitate to contact me. The office is [phone]. This note is constructed using voice recognition software. While every effort has been made to ensure accuracy foot roentgenologist errors may have been included. Yours sincerely, AKILA Ponce Coding Level of Care Code 62363-[id number] Fac sub, mod Diagnoses Spastic neurogenic bladder N31.8 Hypotonic neurogenic bladder N31.9
== END 2024-06-11 16:30 | disposition home or self-care (01) ==
LOC: HO.HUSV 13:22
PROVIDERS: PCP Internal Medicine; Visit Provider Nurse Practitioner Family
DX: N31.8 Other neuromuscular dysfunction of bladder (principal); Z43.6 Encounter for attention to other artificial openings of urinary tract
CPT/HCPCS: 99309

== ENCOUNTER 2024-07-07 08:37 | Inpatient (IN) | payer MEDICARE, SELFPAY ==
[2024-07-07] VITALS (7 sets, daily range): BP systolic 89–113; BP diastolic 46–53; PULSE 32–92; RESP 18–28; TEMP 36.4–37.2; O2SAT 87–99; BMI 29.1
--- NOTE | ~2024-07-07 | XR_ITS ---
EXAMINATION: XR CHEST CLINICAL INFORMATION: Altered COMPARISON: CXR on 05/19/24 TECHNIQUE: 2 views of the chest were obtained. FINDINGS: The cardiac silhouette is normal. There is mild diffuse bronchial wall thickening. There are no areas of consolidation. There are no pleural effusions or pneumothoraces. The bones and soft tissues are unremarkable for the patient's age. XR/XR chest 2V IMPRESSION: Bronchial wall thickening may be infectious and/or inflammatory in etiology. Electronically signed by: Katarina Rosa MD 07/07/2024 09:48 AM EDT
--- NOTE | ~2024-07-07 | CT_ITS ---
EXAMINATION: CT ANGIOGRAM CHEST CLINICAL INFORMATION: Hypoxic. Evaluate for pulmonary embolism. COMPARISON: Most recent chest radiograph done earlier the same day. CT abdomen/pelvis dated 04/25/2024. Chest CT dated 01/02/2020. TECHNIQUE: Multiple axial images were obtained through the chest after the administration of 65 mL of Omnipaque 350 intravenous contrast. Extensive vascular post-processing including two-dimensional and three-dimensional reformatted images were created and reviewed on an independent workstation. This CT examination was performed using dose optimization techniques as appropriate, variously including the following: *Automated exposure control *Adjustment of mA and/or kV according to patient size (this includes techniques or standardized protocols for targeted exams where dose is matched to indication/reason for exam; i.e. extremities or head) *Use of iterative reconstruction technique DLP: 436 mGy-cm FINDINGS: QUALITY OF STUDY/CONTRAST BOLUS: Satisfactory. PULMONARY ARTERIES: No pulmonary emboli. THORACIC AORTA: No aneurysm. LUNG: Interstitial prominence, most significant peripherally, similar when compared to the prior CT. No focal airspace consolidation. No pulmonary nodule or mass. The central airways are patent. PLEURA: No pleural effusion or pneumothorax. MEDIASTINUM: Normal heart size. No pericardial effusion. No hilar or mediastinal lymphadenopathy. No evidence of septal bowing or right heart strain. CORONARY ARTERY CALCIFICATION: Present. CHEST WALL/AXILLA: No axillary or internal mammary lymphadenopathy. OSSEOUS STRUCTURES: No acute or suspicious osseous abnormality. UPPER ABDOMEN: Partially visualized cholelithiasis without evidence of acute cholecystitis. Partially visualized left renal staghorn calculus, unchanged. No reflux of contrast into the hepatic veins to suggest elevated right heart pressures. CT/CT angio chest PE protocol IMPRESSION: 1. No CT angiographic evidence of acute pulmonary embolism. 2. Interstitial prominence, similar when compared to the prior CT. No focal airspace consolidation. 3. Cholelithiasis without evidence of acute cholecystitis. Partially visualized left renal staghorn calculus, unchanged. VTE: Negative. Fleischner guidelines were followed. Electronically signed by: Rainer Huang MD 07/07/2024 02:44 PM EDT
[2024-07-07 09:06] LABS: Glucose, Whole Blood 92 mg/dL (60-115)
--- NOTE | 2024-07-07 09:12 | ED_ITS ---
HPI - Altered Mental Status General Chief Complaint: Altered Mental Status Stated Complaint: PER [facility] AMS,CONF,STS HE WAS SLEEPING PER EMS Time Seen by Provider: 07/07/24 08:58 Source: patient and EMS Mode of arrival: EMS Limitations: no limitations History of Present Illness ED Provider: JW WADE PA-C HPI narrative: 84 year old male with pmhx significant for cardiomyopathy, CHF with EF of 25- 30%, type 2 diabetes, CKD stage 3, atrial fibrillation on Eliquis, dysphagia, LBBB, spinal stenosis, suprapubic catheter presenting from 's home for evaluation of AMS and lethargy. Per EMS, they received a call from facility stating patient was unarousable by staff. On arrival to ED, patient AOX3. Initially on 3L NC, now satting well on RA. Patient tells me he stayed up late last night. He got approximately 2 hours of sleep and was catching up on slep this morning when staff attempted to arouse him. His only complaint at present is all over body aches. He is not dependent on O2 at home. Denies fevers, chills, chest pain, sob, wheezing, palpitations, LE swelling/ pain, dysuria, hematuria. Related Data Home Medications ?Medication ?Instructions ?Recorded ?Confirmed acetaminophen 325 mg tablet 650 mg PO Q4H PRN Pain 12/17/20 07/07/24 cyanocobalamin (vitamin B-12) 1,000 mcg PO DAILY 12/17/20 07/07/24 1,000 mcg tablet escitalopram oxalate 10 mg tablet 10 mg PO DAILY 12/17/20 07/07/24 fluticasone propionate 50 1 spray intranasal DAILY 12/17/20 07/07/24 mcg/actuation nasal spray,suspension multivitamin 1 tab PO DAILY 12/17/20 07/07/24 oxycodone 5 mg tablet 10 mg PO Q6H PRN Pain 12/17/20 07/07/24 lidocaine 4 % topical patch 1 patch topical DAILY 10/17/23 07/07/24 mirabegron 50 mg tablet,extended 50 mg PO DAILY 10/17/23 07/07/24 release 24 hr apixaban 2.5 mg tablet (Eliquis) 2.5 mg PO BID 05/19/24 07/07/24 ascorbic acid (vitamin C) 500 mg 1,000 mg PO DAILY 05/19/24 07/07/24 tablet guaifenesin 100 mg/5 mL oral liquid 100 mg PO Q4H PRN Cough 05/19/24 07/07/24 loperamide 2 mg tablet 2 mg PO Q3H PRN Loose Stool 05/19/24 07/07/24 polyethylene glycol 3350 17 17 g PO DAILY 05/19/24 07/07/24 gram/dose oral powder sennosides 8.6 mg tablet (senna) 25.8 mg PO DAILY 05/19/24 07/07/24 sodium phosphates 19 gram-7 118 ml WA DAILY PRN Constipation 05/19/24 07/07/24 gram/118 mL enema (Fleet Enema) thiamine mononitrate (vit B1) 100 100 mg PO DAILY 05/19/24 07/07/24 mg tablet ammonium lactate 12 % topical cream 1 appl topical BID PRN Dry Skin 07/07/24 07/07/24 buspirone 5 mg tablet 5 mg PO BID 07/07/24 07/07/24 fluoride (sodium) 1.1 % dental 1 appl dental BID 07/07/24 07/07/24 paste mineral oil 30 ml PO DAILY PRN dry scalp and 07/07/24 07/07/24 meyers for dandruff ondansetron HCl 4 mg tablet 4 mg PO ONCE PRN prior to travel 07/07/24 07/07/24 for appointment ondansetron HCl 4 mg tablet 4 mg PO Q6H PRN Nausea 07/07/24 07/07/24 zinc oxide 20 % topical paste 1 ea topical DAILY PRN skin 07/07/24 07/07/24 integrity Previous Rx's ?Medication ?Instructions ?Recorded methenamine hippurate 1 gram tablet 1 g PO DAILY 90 days #90 tabs 09/22/21 Allergies Allergy/AdvReac Type Severity Reaction Status Date / Time codeine AdvReac Intermediate Vomiting Verified 07/07/24 09:03 morphine AdvReac Intermediate Vomiting Verified 07/07/24 09:03 Review of Systems 2 Review of Systems: Constitutional: No fever, chills, fatigue, night sweats, weight changes ENT/Mouth: No ear pain, hearing loss, nasal congestion, sinus pain, rhinorrhea, sore throat Eyes: No eye pain, swelling, redness, vision changes, discharge Cardio: No chest pain, palpitations, [place], orthopnea, peripheral edema Pulm: No SOB, cough, sputum, wheezing, dyspnea, hemoptysis GI: No nausea, vomiting, hematemesis, abdominal pain, diarrhea, constipation, hematochezia, melena : No irregular bleeding, dysuria, frequency, urgency, hesitancy, hematuria, flank pain, urinary flow changes, urinary incontinence or retention MSK: No back pain, neck pain, joint pain, +myalgias Skin: No lesions, rashes Neuro: No weakness, numbness, paresthesias, LOC, dizziness, headache Psych: No anxiety/panic, depression, SI/HI, AH/VH All other systems reviewed and are negative. [facility] Past Medical History Attestation statement: The following information was validated with the patient. Source: old records reviewed and nursing notes reviewed Medical History Autonomic dysfunction with type 2 diabetes mellitus Bacteriuria Cellulitis of scrotum PONV (postoperative nausea and vomiting) Cardiomyopathy COVID-19 vaccine series completed Depression Venous insufficiency Dysphagia [facility] resident Carbuncle of gluteal region C. 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 Housing: [facility] Housing Other:: [facility] Are you a primary critical care nurse specialist to a significant other at home: No Do you presently have visiting nurse or other home services: No Unable to assess alcohol history related to: Unknown Alcohol intake: never Comment: resting in bed, eyes closed Patient Tobacco Use Status: Former Tobacco user Tobacco use type: Cigarette Smoked in Last 30 Days: No e-Cigarette/Vaping Use: Never Used Advance Directives: Yes Advance Directives on File: Yes Advance Directives Date on File: 10/17/23 service: Yes Current occupational status: retired Physical Exam ED Vital Signs: Vital Signs - 24 hr 07/07/24 09:00 07/07/24 10:32 07/07/24 11:51 Temperature 98.2 F 97.9 F 97.6 F Pulse Rate 92 76 83 Respiratory Rate 18 22 H 19 Blood Pressure 107/53 L 107/53 L Pulse Oximetry 96 99 98 Oxygen Delivery Method Nasal Cannula Oxymask Oxymask Oxygen Flow Rate 2 2 07/07/24 12:42 07/07/24 14:00 Temperature 98.3 F 98.4 F Pulse Rate 78 76 Respiratory Rate 18 22 H Blood Pressure 112/48 L 110/48 L Pulse Oximetry 96 98 Oxygen Delivery Method Aerosol Mask Oxymask Oxygen Flow Rate 3 2 BMI result Body Mass Index 29.1 Vital signs stable. Not hypoxic. General: Well appearing, in no acute distress. Skin: Warm, dry, intact. No rashes or lesions. Head: Normocephalic, atraumatic. EENT: Hearing is intact b/l. Conjunctiva clear. PERRLA. Moist mucous membranes.? Neck: Supple without LAD Cardiac: Chest wall symmetric. RRR Lungs: Normal respiratory effort without accessory muscle use. CTA bilaterally. No rales, rhonchi, or wheezes.? Abdomen: Soft, non-tender, non-distended. No rebound tenderness or guarding. : Suprapubic catheter site clean, nontender, no surrounding erythema. Dry. Back: No midline spinous or paraspinal tenderness. No step off deformity. Ext: Upper and lower extremities atraumatic, without tenderness, deformity, swelling or erythema. Full ROM throughout. Chronic venous skin change to b/l LE. Neuro: AOx3. Normal speech. Psych: Appropriate mood and affect. Responds appropriately to questions. Course Course Course Narrative: 0934 -- Patient found to be hypoxic to 87% via EMS, placed on 3L nasal cannula on arrival to ED. I discontinued O2 administration and patient maintaining saturation to 97% on RA while in room w/ patient. No episodes of hypoxia. Patient is currently unaltered. AOX3. 1053 -- Patient desatted to 83% on RA. Placed on 2L oxy mask, now satting 100%. 1208 -- CBC without leukocytosis or left shift. Chronic normocytic anemia, H&H appears to be around patient's baseline and as above transfusion threshold. VBG showing chronic metabolic alkalosis. Ammonia WNL at 31. Chemistry without acute electrolyte abnormality requiring intervention. Troponin 8.1 > will repeat for delta. EKG showing sinus rhythm with sinus arrhythmia with first-degree AV block at a rate of 81 beats per minute, QT 452, QTC 525, left bundle-branch block which is present on prior EKG's, no acute ischemic changes or ST elevations. CXR showing bronchial wall thickening. no focal consolidation or infiltrate. serology positive for covid. As patient recently COVID positive on 05/20/24, this may be false positive. > given intermittent hypoxia and recent COVID - plan to obtain CTA chest to r/o PE. > UA/ urine tox pending. 1533 -- patient treated with decdaron IV. CTA chest negative for VTE. UA/ u tox pending. > I have concern patient's hypoxia is secondary to covid infection. discussed case with hospitalist, Dr. Platt who has agreed to admission to medicine. Medications Administered Generic Name Dose Route Start Last Admin Trade Name Freq PRN Reason Stop Dose Admin Apixaban 2.5 mg 07/07/24 21:00 07/07/24 20:20 Apixaban 2.5 Mg Tablet PO Not Given BID [facility] Insulin Human Lispro 0 unit 07/07/24 21:00 07/07/24 20:19 Insulin Lispro 100 Unit/Ml 3 Ml Vial SUBCUT Not Given QIDACHS [facility] Protocol Discontinued Medications Generic Name Dose Route Start Last Admin Trade Name Freq PRN Reason Stop Dose Admin Dexamethasone Sodium Phosphate 6 mg 07/07/24 14:57 07/07/24 15:59 Dexamethasone Sod Phosphate 4 Mg/Ml Vial IVPUSH 07/07/24 14:58 6 mg ONCE ONE Administration Sodium Chloride 1,000 mls @ 999 mls/hr 07/07/24 12:15 07/07/24 16:01 Ns IV 07/07/24 13:15 Infused .Q1H1M ROXANN Infusion Iohexol 65 ml 07/07/24 13:24 07/07/24 13:24 Iohexol 350 Mg/Ml 100 Ml Infus..Btl IV 07/07/24 13:25 65 ml ONCE ONE Administration Medical Decision Making Medical Decision Making MDM Narrative: 84 year old male with pmhx significant for cardiomyopathy, CHF with EF of 25- 30%, type 2 diabetes, CKD stage 3, atrial fibrillation on Eliquis, dysphagia, LBBB, spinal stenosis, suprapubic catheter presenting from 's home for evaluation of AMS and lethargy. On arrival, patient satting 96% on 2L nasal cannula. Place on 2L oxymask, satting 100%. He is nontoxic-appearing and in no acute distress. A&O x3. No increased effort of breathing. No tripoding. Lungs are CTA bilaterally. RRR. No pitting peripheral edema. No calf tenderness bilaterally. Differential diagnosis includes acute hypoxic respiratory failure, pneumonia, bronchitis, viral syndrome, anemia, electrolyte abnormality, dehydration. Labs, UA, chest xr, ekg ordered. Given recent COVID diagnosis and episodes of hypoxic, concern for PE. Plan for CTA chest for PE r/o. Differential Diagnosis Differential Diagnoses: The differential diagnosis associated with the presentation includes As above Admission/Observation Consideration of admission/observation: Escalation of care including admission/observation considered patient to be admitted to medicine for acute hypoxic respiratory failure. Consult Healthcare Provider Management of the patient was discussed with: Hospitalist (Dr. Platt) Lab Data [facility] Lab Attestation statement: I reviewed the patient's lab results. As above 07/07/24 10:30 07/07/24 10:30 Labs: Lab Results 07/07/24 07/07/24 07/07/24 Range/Units 09:02 10:30 10:39 WBC 7.1 (4.8-10.8) X10*3/uL RBC 3.06 L (4.60-5.80) X10*6/uL Hgb 9.5 L (14.0-18.0) g/dl Hct 30.0 L (42.0-52.0) % MCV 98.0 (80.0-98.0) fL MCH 31.0 (27.0-33.0) pg MCHC 31.7 (31.0-36.0) g/dl RDW 17.4 H (11.0-16.0) % Plt Count 247 D (160-400) X10*3/uL MPV 9.6 (9.4-12.4) fL Immature Gran % (Auto) 0.4 (0.0-0.4) % Neut % (Auto) 72.9 (45-73) % Lymph % (Auto) 13.4 L (20-40) % [place] % (Auto) 10.7 (2-11) % Eos % (Auto) 2.0 (0-4) % Baso % (Auto) 0.6 (0-2) % Lymph # (Auto) 1.0 L (1.2-4.9) X10*3/uL [place] # (Auto) 0.8 (0.1-1.2) X10*3/uL Eos # (Auto) 0.1 (0.0-0.4) X10*3/uL Baso # (Auto) 0.0 (0.0-0.2) X10*3/uL Abs Immat Gran (auto) 0.03 (0.00-0.03) X10*3/uL Absolute Neuts (auto) 5.2 (2.0-8.3) x10*3/uL Absolute Nucleated RBC 0.000 (0.0-0.012) X10*3/uL Nucleated RBC % (auto) 0.0 (0.0-0.2) /100WBC VBG pH 7.44 H (7.32-7.43) VBG pCO2 57 mmHg VBG pO2 43 mmHg VBG HCO3 39 H (22-26) mmol/L VBG O2 Saturation 68.0 % VBG Base Excess 13.1 mmol/L Sodium 138 (135-145) mmol/L Potassium 4.2 (3.3-5.1) mmol/L Chloride 99 (96-108) mmol/L Carbon Dioxide 32 H (22-29) mmol/L Anion Gap 11 L (12-20) BUN 18 H (9-16) mg/dL Creatinine 0.91 (0.5-1.4) mg/dL Estim Creat Clear Calc 70.4 Estimated GFR > 60 POC Glucose 92 (60-115) mg/dL Random Glucose 95 (60-115) mg/dL Calcium 9.3 (8.4-10.2) mg/dL Magnesium 2.0 (1.6-2.6) mg/dL Total Bilirubin 0.4 (0.0-1.0) mg/dL AST 18 (5-37) U/L ALT 11 (0-40) U/L Alkaline Phosphatase 61 (39-117) U/L Ammonia 31 (13-55) umol/L Troponin I High Sens 8.1 (<3.5-35.0) ng/L C-Reactive Protein 3.15 H (< or = 0.50) mg/dL B-Natriuretic Peptide (<100) pg/mL Total Protein 7.0 (6.5-8.0) g/dL Albumin 3.3 L (3.5-5.0) g/dL Lipase 11 (8-78) U/L TSH 1.19 (0.32-4.0) uIU/mL Urine Color Urine Appearance Urine pH (5.0-9.0) Ur Specific [place] (1.005-1.025) Urine Protein (Neg-Trace) mg/dL Urine Glucose (UA) (Negative) mg/dL Urine Ketones (Negative) mg/dL Urine Blood (Negative) Urine Nitrite (Negative) Ur Leukocyte Esterase (Negative) Urine RBC (0-2) /HPF Urine WBC (0-5) /HPF Ur Squamous Epith Cells (0-2) /HPF Urine Bacteria (None Seen) Hyaline Casts (0-2) /LPF Granular Casts Urine Opiates Screen (Not Detect) Ur Buprenorphine Scrn (Not Detect) ng/mL Ur Oxycodone Screen (Not Detect) ng/mL Urine Methadone Screen (Not Detect) ng/mL Urine Fentanyl Screen (Not Detect) Ur Barbiturates Screen (Not Detect) Ur Phencyclidine Scrn (Not Detect) Ur Amphetamines Screen (Not Detect) U Benzodiazepines Scrn (Not Detect) Urine Cocaine Screen (Not Detect) U Marijuana (THC) Screen (Not Detect) Influenza Type A (PCR) NEGATIVE (Negative) Influenza Type B (PCR) NEGATIVE (Negative) RSV RNA Qual (PCR) NEGATIVE (Negative) SARS-CoV-2 RNA (RT-PCR) POSITIVE A (Negative) 07/07/24 07/07/24 07/07/24 Range/Units 14:02 15:55 16:38 WBC (4.8-10.8) X10*3/uL RBC (4.60-5.80) X10*6/uL Hgb (14.0-18.0) g/dl Hct (42.0-52.0) % MCV (80.0-98.0) fL MCH (27.0-33.0) pg MCHC (31.0-36.0) g/dl RDW (11.0-16.0) % Plt Count (160-400) X10*3/uL MPV (9.4-12.4) fL Immature Gran % (Auto) (0.0-0.4) % Neut % (Auto) (45-73) % Lymph % (Auto) (20-40) % [place] % (Auto) (2-11) % Eos % (Auto) (0-4) % Baso % (Auto) (0-2) % Lymph # (Auto) (1.2-4.9) X10*3/uL [place] # (Auto) (0.1-1.2) X10*3/uL Eos # (Auto) (0.0-0.4) X10*3/uL Baso # (Auto) (0.0-0.2) X10*3/uL Abs Immat Gran (auto) (0.00-0.03) X10*3/uL Absolute Neuts (auto) (2.0-8.3) x10*3/uL Absolute Nucleated RBC (0.0-0.012) X10*3/uL Nucleated RBC % (auto) (0.0-0.2) /100WBC VBG pH (7.32-7.43) VBG pCO2 mmHg VBG pO2 mmHg VBG HCO3 (22-26) mmol/L VBG O2 Saturation % VBG Base Excess mmol/L Sodium (135-145) mmol/L Potassium (3.3-5.1) mmol/L Chloride (96-108) mmol/L Carbon Dioxide (22-29) mmol/L Anion Gap (12-20) BUN (9-16) mg/dL Creatinine (0.5-1.4) mg/dL Estim Creat Clear Calc Estimated GFR POC Glucose (60-115) mg/dL Random Glucose (60-115) mg/dL Calcium (8.4-10.2) mg/dL Magnesium (1.6-2.6) mg/dL Total Bilirubin (0.0-1.0) mg/dL AST (5-37) U/L ALT (0-40) U/L Alkaline Phosphatase (39-117) U/L Ammonia (13-55) umol/L Troponin I High Sens 6.7 (<3.5-35.0) ng/L C-Reactive Protein (< or = 0.50) mg/dL B-Natriuretic Peptide 40 (<100) pg/mL Total Protein (6.5-8.0) g/dL Albumin (3.5-5.0) g/dL Lipase (8-78) U/L TSH (0.32-4.0) uIU/mL Urine Color Yellow Urine Appearance Turbid Urine pH 6.0 (5.0-9.0) Ur Specific [place] 1.020 (1.005-1.025) Urine Protein 100 (2+) H (Neg-Trace) mg/dL Urine Glucose (UA) Negative (Negative) mg/dL Urine Ketones Negative (Negative) mg/dL Urine Blood Moderate (2+) H (Negative) Urine Nitrite Positive H (Negative) Ur Leukocyte Esterase Large (3+) H (Negative) Urine RBC 3-5 H (0-2) /HPF Urine WBC >50 H (0-5) /HPF Ur Squamous Epith Cells 3-5 (0-2) /HPF Urine Bacteria 4+ (None Seen) Hyaline Casts 0-2 (0-2) /LPF Granular Casts Present Urine Opiates Screen Not Detected (Not Detect) Ur Buprenorphine Scrn Not Detected (Not Detect) ng/mL Ur Oxycodone Screen Not Detected (Not Detect) ng/mL Urine Methadone Screen Not Detected (Not Detect) ng/mL Urine Fentanyl Screen Not Detected (Not Detect) Ur Barbiturates Screen Not Detected (Not Detect) Ur Phencyclidine Scrn Not Detected (Not Detect) Ur Amphetamines Screen Not Detected (Not Detect) U Benzodiazepines Scrn Not Detected (Not Detect) Urine Cocaine Screen Not Detected (Not Detect) U Marijuana (THC) Screen Not Detected (Not Detect) Influenza Type A (PCR) (Negative) Influenza Type B (PCR) (Negative) RSV RNA Qual (PCR) (Negative) SARS-CoV-2 RNA (RT-PCR) (Negative) Independent Interpretation I performed an independent interpretation of an: EKG and Plain X-Ray Interpretation: EKG showing sinus rhythm with sinus arrhythmia with first-degree AV block at a rate of 81 beats per minute, QT 452, QTC 525, left bundle-branch block present on prior EKGs, no acute ischemic changes or ST elevations. CXR without infiltrate or consolidation, agree with radiologist's interpretation. Radiology Impression Discussion of test interpretation with radiology: I have reviewed the radiologist's reading. Radiologist Impression: EXAMINATION: XR CHEST CLINICAL INFORMATION: Altered COMPARISON: CXR on 05/19/24 TECHNIQUE: 2 views of the chest were obtained. FINDINGS: The cardiac silhouette is normal. There is mild diffuse bronchial wall thickening. There are no areas of consolidation. There are no pleural effusions or pneumothoraces. The bones and soft tissues are unremarkable for the patient's age. XR/XR chest 2V IMPRESSION: Bronchial wall thickening may be infectious and/or inflammatory in etiology. Electronically signed by: Katarina Rosa MD 07/07/2024 09:48 AM EDT RP Independent Historian Clinical information obtained from an independent historian. History obtained from or confirmed by: EMS External Record Review External record reviewed: Inpatient record, Office record, Outpatient record, Prior outpatient labs, Prior outpatient radiology, Primary care record and Outside ED record Chronic Conditions Patient?s care impacted by: Other (afib) Social Determinants Patient?s care significantly limited by Social Determinants of Health including: Other Social Determinant of Health Critical Care Time Critical Care Time Critical Care Time: Yes Total Critical Care Time: 35 Attestation: Critical care time in the amount of 35 minutes has been provided to the patient in terms of direct patient care, frequent reevaluation, consultation with hospitalist, review and interpretation of medical data and results, and management of potentially life-threatening conditions. This is all outside of any medical procedures. Discharge Plan Discharge Clinical Impression: Acute hypoxic respiratory failure, COVID-19 Patient Disposition: Admitted As Inpatient Interventions: Admission Worksheet (ED) Last Done: 07/07/24 16:58
--- NOTE | 2024-07-07 09:14 | ECG_ITS ---
Test Reason : alter Blood Pressure : / mmHG Vent. Rate : 081 BPM Atrial Rate : 081 BPM P-R Int : 280 ms QRS Dur : 154 ms QT Int : 452 ms P-R-T Axes : 000 003 015 degrees QTc Int : 525 ms Sinus rhythm with sinus arrhythmia with 1st degree A-V block Left bundle branch block Abnormal ECG When compared with ECG of 19-MAY-2024 13:39, Premature ventricular complexes are no longer Present Referred By: Sierra Miranda Electronically Signed By:KELBY GARRETT
--- NOTE | 2024-07-07 10:31 | PC.NURSE ---
alert, removing NC repeatedly. Oxy mask applied. Pt is aware of plan of care and was cooperative with Labs. unlabored resp.
[2024-07-07 10:39] LABS: Basophils Percent Auto 0.6 % (0-2); Eosinophils Absolute Auto 0.1 X10*3/uL (0.0-0.4); Hemoglobin 9.5 g/dl (14.0-18.0); Imm Gran Abs Auto 0.03 X10*3/uL (0.00-0.03); Imm Gran Pct Auto 0.4 % (0.0-0.4); Lymphocytes Percent Auto 13.4 % (20-40); MANUAL DIFF FLAG NO; Mean Corpuscular HGB Conc 31.7 g/dl (31.0-36.0); Mean Platelet Volume 9.6 fL (9.4-12.4); Monocytes Absolute Auto 0.8 X10*3/uL (0.1-1.2); Monocytes Percent Auto 10.7 % (2-11); Neutrophils Absolute Auto 5.2 x10*3/uL (2.0-8.3); Neutrophils Percent Auto 72.9 % (45-73); Platelet Count 247 X10*3/uL (160-400); Red Blood Count 3.06 X10*6/uL (4.60-5.80); Red Cell Distribution Width 17.4 % (11.0-16.0); White Blood Count 7.1 X10*3/uL (4.8-10.8)
[2024-07-07 10:42] LABS: VBG Base Excess 13.1 mmol/L; VBG HCO3 39 mmol/L (22-26); VBG pCO2 57 mmHg; VBG pH 7.44 (7.32-7.43); VBG pO2 43 mmHg
[2024-07-07 10:42] LABS: Venous Blood Gas Refer to POC result
[2024-07-07 10:46] LABS: Ammonia 31 umol/L (13-55)
[2024-07-07 11:00] LABS: Alanine Aminotransferase 11 U/L (0-40); Albumin Level 3.3 g/dL (3.5-5.0); Alkaline Phosphatase 61 U/L (39-117); Anion Gap 11 (12-20); Aspartate Amino Transferase 18 U/L (5-37); Bilirubin Total 0.4 mg/dL (0.0-1.0); Blood Urea Nitrogen 18 mg/dL (9-16); Calcium 9.3 mg/dL (8.4-10.2); Carbon Dioxide 32 mmol/L (22-29); Chloride 99 mmol/L (96-108); Creatinine Clr Calc Pharmacy 70.4; Estimated Glomerular Filt Rate > 60; Glucose Random 95 mg/dL (60-115); Lipase 11 U/L (8-78); Potassium 4.2 mmol/L (3.3-5.1); Sodium 138 mmol/L (135-145); Troponin-I High Sensitivity 8.1 ng/L (<3.5-35.0)
[2024-07-07 11:14] LABS: TSH reflex Free T4 1.19 uIU/mL (0.32-4.0)
[2024-07-07 11:23] LABS: Influenza A PCR NEGATIVE (Negative); Influenza B PCR NEGATIVE (Negative); Resp Syncy Virus RNA Qual PCR NEGATIVE (Negative); SARS COV2 PCR INHOUSE POSITIVE (Negative)
--- NOTE | 2024-07-07 12:33 | PC.NURSE ---
repositioned in bed. doesn't tolerate movement well d/t anxiety/pain but no SOB with exertion/motion in bed. oxymask remains in place and patient has not removed it.
[2024-07-07] MEDS: 0.9 % Sodium Chloride 1,000 ML 999 ML IV (12:44)
--- NOTE | 2024-07-07 13:13 | PC.NURSE ---
refusing CT. provider aware
[2024-07-07] MEDS: iohexoL 350 MG/ML 100 ML INFUS..BTL 65 ML IV (13:24)
[2024-07-07 14:28] LABS: Troponin-I High Sensitivity 6.7 ng/L (<3.5-35.0)
[2024-07-07] MEDS: dexAMETHasone sod phosphate 4 MG/ML VIAL 6 MG IVPUSH (15:59)
--- NOTE | 2024-07-07 16:07 | PC.NURSE ---
pt has been sleeping on and off. NAD. Provider now aware that he is on 2L NC at baseline
[2024-07-07 16:08] LABS: Appearance Urine Turbid; Color Urine Yellow; Glucose Urine UA Negative (Negative); Leukocyte Esterase Urine Large (3+) (Negative); Nitrite Urine Positive (Negative); UMIC TRIGGER UACC YES; Urine Blood Moderate (2+) (Negative); Urine Ketones Negative (Negative); Urine Protein 100 (2+) mg/dL (Neg-Trace)
[2024-07-07 16:25] LABS: Bacteria Urine 4+ (None Seen); Granular Casts Urine Present; Hyaline Casts Urine 0-2 /LPF (0-2); UACC Culture Trigger YES; WBC Urine >50 /HPF (0-5)
[2024-07-07 16:28] LABS: Amphetamine Screen Urine Not Detected (Not Detect); Barbiturates, Urine Not Detected (Not Detect); Benzodiazepines Screen Urine Not Detected (Not Detect); Buprenorphine Scr Not Detected (Not Detect); Cannabinoid Screen Urine Not Detected (Not Detect); Cocaine Screen Urine Not Detected (Not Detect); Fentanyl, urine Not Detected (Not Detect); Methadone Screen, Urine Not Detected (Not Detect); Opiate Screen Urine Not Detected (Not Detect); Oxycodone Screen Urine Not Detected (Not Detect); Phencyclidine Screen Urine Not Detected (Not Detect)
[2024-07-07 16:57] LABS: C Reactive Protein 3.15 mg/dL (< or = 0.50)
[2024-07-07 17:14] LABS: B Type Natriuretic Peptide 40 pg/mL (<100)
--- NOTE | 2024-07-07 17:41 | P.HPHOSP_ITS ---
History of Present Illness Date of Service: 07/07/24 Chief Complaint: AMS 84yo M resident of [facility] with DM2, autonomic dysfunction, dementia, BPH, CKD3, pAF on apixaban, suprapubic catheter, and chronic anemia; last admitted here 05/19-05/22 for hypoxia due to Covid infection. He was found by [facility] staff to be lethargic this AM with HR 33 and hypoxia with SaO2 86%. He reportedly complained of stomach pain. He was placed on O2 via nasal cannula and transported to the [facility]. Room air SaO2 was 83%. CXR showed bronchial wall thickening but CTA showed interstitial prominence with no focal airspace disease. There was no PE. Covid-19 PCR positive. CRP 3.15, BNP 40. He was given 6 mg of IV dexamethasone. He denies fever, cough, or chest pain. He says his abdominal pain is chronic and from his suprapubic catheter. Review of Systems 2 Review of Systems: Yes all other systems are reviewed and are negative [facility] Medical History Autonomic dysfunction with type 2 diabetes mellitus Bacteriuria Cellulitis of scrotum PONV (postoperative nausea and vomiting) Cardiomyopathy COVID-19 vaccine series completed Depression Venous insufficiency Dysphagia penitentiary resident Carbuncle of gluteal region C. difficile colitis Left bundle branch block Spinal stenosis Urine retention Osteoarthritis Benign prostate hyperplasia Hypertension CKD (chronic kidney disease) stage 3, GFR 30-59 ml/min CHF (congestive heart failure) Type 2 diabetes mellitus Atrial fibrillation Family History Other No family history of cardiovascular disease Surgical History History of incision and drainage History of ligation of vein H/O spinal fusion Social History Household Members: Other Household Members Other:: [facility] Housing: [facility] Housing Other:: [facility] Are you a primary care transitions nurse to a significant other at home: No Do you presently have visiting nurse or other home services: No Unable to assess alcohol history related to: Unknown Alcohol intake: never Comment: resting in bed, eyes closed Patient Tobacco Use Status: Former Tobacco user Tobacco use type: Cigarette Smoked in Last 30 Days: No e-Cigarette/Vaping Use: Never Used Advance Directives: Yes Advance Directives on File: Yes Advance Directives Date on File: 10/17/23 service: Yes Current occupational status: retired Meds Allergies Allergy/AdvReac Type Severity Reaction Status Date / Time codeine AdvReac Intermediate Vomiting Verified 07/07/24 09:03 morphine AdvReac Intermediate Vomiting Verified 07/07/24 09:03 Active Medications: Current Medications Acetaminophen (Acetaminophen 325 Mg Tablet) 650 mg PO Q6H PRN PRN Reason: Pain, Mild (Pain Scale 1-3), fever or headache Apixaban (Apixaban 2.5 Mg Tablet) 2.5 mg PO BID ROXANN Calcium Carbonate (Calcium Carbonate 750 Mg Tab.Chew) 750 mg PO Q4H PRN PRN Reason: Heartburn Dexamethasone Sodium Phosphate (Dexamethasone Sod Phosphate 4 Mg/Ml Vial) 6 mg IVPUSH DAILY [facility] Magnesium Hydroxide (Milk Of Magnesia 30 Ml Oral.Susp) 30 ml PO DAILY PRN PRN Reason: Constipation Melatonin (Melatonin 3 Mg Tablet) 6 mg PO BEDTIME PRN PRN Reason: Insomnia Ondansetron HCl (Ondansetron Hcl 4 Mg/2 Ml Vial) 4 mg IVPUSH Q4H PRN PRN Reason: Nausea and Vomiting Sodium Chloride (0.9 % Sodium Chloride Flush 3 Ml Syringe) 3 ml IVFLUSH QSHIFT [facility] Home Medications ?Medication ?Instructions ?Recorded ?Confirmed ?Last Taken ?Type acetaminophen 325 mg tablet 650 mg PO Q4H PRN Pain 12/17/20 05/19/24 12/20/21 History cyanocobalamin (vitamin B-12) 1,000 mcg PO DAILY 12/17/20 05/19/24 05/19/24 10:00 History 1,000 mcg tablet escitalopram oxalate 10 mg tablet 20 mg PO DAILY 12/17/20 05/19/24 05/19/24 10:00 History fluticasone propionate 50 1 spray intranasal DAILY 12/17/20 05/19/24 05/19/24 10:00 History mcg/actuation nasal spray,suspension multivitamin 1 tab PO DAILY 12/17/20 05/19/24 05/19/24 10:00 History oxycodone 5 mg tablet 10 mg PO Q6H PRN Pain 12/17/20 05/19/24 Unknown History lidocaine 4 % topical patch 1 patch topical DAILY 10/17/23 05/19/24 05/19/24 09:00 History mirabegron 50 mg tablet,extended 50 mg PO DAILY 10/17/23 05/19/24 05/19/24 09:00 History release 24 hr ondansetron 4 mg disintegrating 4 mg PO Q6H PRN Nausea 10/17/23 05/19/24 Unknown History tablet apixaban 2.5 mg tablet (Eliquis) See Rx Instructions .Route .COMPLEX 05/19/24 05/19/24 05/15/24 09:00 History ascorbic acid (vitamin C) 500 mg 1,000 mg PO DAILY 05/19/24 05/19/24 05/19/24 10:00 History tablet guaifenesin 100 mg/5 mL oral liquid 200 mg PO Q4H PRN Cough 05/19/24 05/19/24 Unknown History loperamide 2 mg tablet 2 mg PO Q3H PRN Loose Stool 05/19/24 05/19/24 05/18/24 History ondansetron 4 mg disintegrating 4 mg PO DIRECTED PRN Prior to 05/19/24 05/19/24 05/18/24 History tablet Automobile Travel to Appointments polyethylene glycol 3350 17 17 g PO DAILY 05/19/24 05/19/24 05/19/24 09:00 History gram/dose oral powder sennosides 8.6 mg tablet (senna) 17.2 mg PO DAILY 05/19/24 05/19/24 05/19/24 09:00 History sodium phosphates 19 gram-7 118 ml MT DAILY PRN Constipation 05/19/24 05/19/24 Unknown History gram/118 mL enema (Fleet Enema) thiamine mononitrate (vit B1) 100 100 mg PO DAILY 05/19/24 05/19/24 05/19/24 09:00 History mg tablet Physical Exam 2 Vital Signs and Narrative: Vital Signs: Last Vital Signs Temp 98.4 F 07/07/24 14:00 Pulse 76 07/07/24 14:00 Resp 22 H 07/07/24 14:00 BP 110/48 L 07/07/24 14:00 Pulse Ox 98 07/07/24 14:00 O2 Del Method Oxymask 07/07/24 14:00 O2 Flow Rate 2 07/07/24 14:00 Oxygen Flow Rate 3 07/07/24 09:00 BMI result Body Mass Index 29.1 Gen: in no acute distress HEENT: sclera anicteric, moist mucus membranes Neck: supple Lungs: clear to auscultation bilaterally Heart: regular rate and rhythm, no murmurs Abd: soft, non-tender, non-distended : suprapubic catheter draining clear yellow urine Ext: no edema Skin: warm/well-perfused Neuro: alert and oriented x3, no focal findings Psych: appropriate affect Results Labs 07/07/24 10:30 07/07/24 10:30 Labs: Laboratory Results - last 24 hr 07/07/24 07/07/24 07/07/24 09:02 10:30 10:39 MCV 98.0 MCH 31.0 MCHC 31.7 RDW 17.4 H Plt Count 247 D MPV 9.6 Immature Gran % (Auto) 0.4 Neut % (Auto) 72.9 Lymph % (Auto) 13.4 L Ponce % (Auto) 10.7 Eos % (Auto) 2.0 Baso % (Auto) 0.6 Lymph # (Auto) 1.0 L Ponce # (Auto) 0.8 Eos # (Auto) 0.1 Baso # (Auto) 0.0 Abs Immat Gran (auto) 0.03 Absolute Neuts (auto) 5.2 Absolute Nucleated RBC 0.000 Nucleated RBC % (auto) 0.0 VBG pH 7.44 H VBG pCO2 57 VBG pO2 43 VBG HCO3 39 H VBG O2 Saturation 68.0 VBG Base Excess 13.1 Anion Gap 11 L Estim Creat Clear Calc 70.4 Estimated GFR > 60 POC Glucose 92 Random Glucose 95 Calcium 9.3 Magnesium 2.0 Total Bilirubin 0.4 AST 18 ALT 11 Alkaline Phosphatase 61 Ammonia 31 Troponin I High Sens 8.1 C-Reactive Protein 3.15 H B-Natriuretic Peptide Total Protein 7.0 Albumin 3.3 L Lipase 11 TSH 1.19 Urine Color Urine Appearance Urine pH Ur Specific Corona Urine Protein Urine Glucose (UA) Urine Ketones Urine Blood Urine Nitrite Ur Leukocyte Esterase Urine RBC Urine WBC Ur Squamous Epith Cells Urine Bacteria Hyaline Casts Granular Casts Urine Opiates Screen Ur Buprenorphine Scrn Ur Oxycodone Screen Urine Methadone Screen Urine Fentanyl Screen Ur Barbiturates Screen Ur Phencyclidine Scrn Ur Amphetamines Screen U Benzodiazepines Scrn Urine Cocaine Screen U Marijuana (THC) Screen Influenza Type A (PCR) NEGATIVE Influenza Type B (PCR) NEGATIVE RSV RNA Qual (PCR) NEGATIVE SARS-CoV-2 RNA (RT-PCR) POSITIVE A 07/07/24 07/07/24 07/07/24 14:02 15:55 16:38 MCV MCH MCHC RDW Plt Count MPV Immature Gran % (Auto) Neut % (Auto) Lymph % (Auto) Ponce % (Auto) Eos % (Auto) Baso % (Auto) Lymph # (Auto) Ponce # (Auto) Eos # (Auto) Baso # (Auto) Abs Immat Gran (auto) Absolute Neuts (auto) Absolute Nucleated RBC Nucleated RBC % (auto) VBG pH VBG pCO2 VBG pO2 VBG HCO3 VBG O2 Saturation VBG Base Excess Anion Gap Estim Creat Clear Calc Estimated GFR POC Glucose Random Glucose Calcium Magnesium Total Bilirubin AST ALT Alkaline Phosphatase Ammonia Troponin I High Sens 6.7 C-Reactive Protein B-Natriuretic Peptide 40 Total Protein Albumin Lipase TSH Urine Color Yellow Urine Appearance Turbid Urine pH 6.0 Ur Specific Corona 1.020 Urine Protein 100 (2+) H Urine Glucose (UA) Negative Urine Ketones Negative Urine Blood Moderate (2+) H Urine Nitrite Positive H Ur Leukocyte Esterase Large (3+) H Urine RBC 3-5 H Urine WBC >50 H Ur Squamous Epith Cells 3-5 Urine Bacteria 4+ Hyaline Casts 0-2 Granular Casts Present Urine Opiates Screen Not Detected Ur Buprenorphine Scrn Not Detected Ur Oxycodone Screen Not Detected Urine Methadone Screen Not Detected Urine Fentanyl Screen Not Detected Ur Barbiturates Screen Not Detected Ur Phencyclidine Scrn Not Detected Ur Amphetamines Screen Not Detected U Benzodiazepines Scrn Not Detected Urine Cocaine Screen Not Detected U Marijuana (THC) Screen Not Detected Influenza Type A (PCR) Influenza Type B (PCR) RSV RNA Qual (PCR) SARS-CoV-2 RNA (RT-PCR) Imaging Radiologist's Impressions: Impressions Chest X-Ray 07/07/24 09:15 IMPRESSION: Bronchial wall thickening may be infectious and/or inflammatory in etiology. Electronically signed by: Katarina Rosa MD 07/07/2024 09:48 AM EDT RP Chest CTA 07/07/24 12:54 IMPRESSION: 1. No CT angiographic evidence of acute pulmonary embolism. 2. Interstitial prominence, similar when compared to the prior CT. No focal airspace consolidation. 3. Cholelithiasis without evidence of acute cholecystitis. Partially visualized left renal staghorn calculus, unchanged. VTE: Negative. Fleischner guidelines were followed. Electronically signed by: Rainer Huang MD 07/07/2024 02:44 PM EDT Workstation: [id number] Assessment and Plan (1) COVID-19: Status: Acute Plan 84yo M resident of [facility] with DM2, autonomic dysfunction, dementia, BPH, CKD3, pAF on apixaban, suprapubic catheter, and chronic anemia; presenting with acute lethargy and found to be hypoxic from Covid-19 infection Covid-19 infection - likely reinfection rather than persistence; admit to telemetry/isolation, give dexamethasone x10d, wean O2 as tolerated, trend inflammatory markers acute hypoxic respiratory failure - supplemental O2, wean as tolerated pAF - continue apixaban DM2 - DM diet, pretty-dose lispro CKD3 - SCr at baseline BPH - has suprapubic catheter VTE ppx - apixaban dispo - eventual return to H code - full per [facility] I anticipate that the patient will stay at least 2 midnights as an inpatient in the hospital due to the above reasons. It is neither reasonable nor safe to care for them in a less acute setting. Quality Stroke Does the patient have a stroke diagnosis?: No VTE Prior VTE?: No VTE Risk Level:: Medical - moderate - high VTE Device Contraindication: N/A - Device Ordered VTE Drug Contraindication: N/A - Med Ordered
--- NOTE | 2024-07-07 18:34 | PC.NURSE ---
Update to MARCK Chambers. updates with current condition.
--- NOTE | 2024-07-07 19:16 | PHA.MEDREC ---
Pharmacy Consult ? Medication Reconciliation Pharmacy has completed the medication reconciliation, utilized list from [place].
--- NOTE | 2024-07-07 19:34 | PC.NURSE ---
this rn assumed care of pt, patient alert but confused. respirations even and unlabored, vss. normal sinus on tele 80-81.
--- NOTE | 2024-07-07 20:08 | PC.NURSE ---
supra pubic hernandez draind at this time, 600ml removed.
--- NOTE | 2024-07-07 20:20 | PC.NURSE ---
no insulin coverage at this time. attempted to give pt PO medication, pt refused. provider aware.
[2024-07-07 20:21] LABS: Glucose, Whole Blood 107 mg/dL (60-115)
[2024-07-07 21:20] LABS: Glucose, Whole Blood 107 mg/dL (60-115)
[2024-07-08] VITALS (7 sets, daily range): BP systolic 107–118; BP diastolic 47–60; PULSE 69–110; RESP 18–22; TEMP 36–36.6; O2SAT 95–100; BMI 28.7
[2024-07-08] MEDS: 0.9 % Sodium Chloride Flush 3 ML SYRINGE IVFLUSH ×3 (00:26→20:46)
--- NOTE | 2024-07-08 00:35 | PC.NURSE ---
pt repositioned in bed, pillow placed under right hip. suprapubic catheter in place, no drainage noted from site. pt noted to have coccyx barrier bandage in place.
[2024-07-08 08:20] LABS: Glucose, Whole Blood 101 mg/dL (60-115)
[2024-07-08] MEDS: dexAMETHasone sod phosphate 4 MG/ML VIAL 6 MG IVPUSH (10:29)
[2024-07-08] MEDS: busPIRone HCl 5 MG TABLET PO ×2 (10:30→20:45)
[2024-07-08] MEDS: Apixaban 2.5 MG TABLET PO ×2 (10:30→20:45)
[2024-07-08] MEDS: Mirabegron 50 MG TAB.ER.24H PO (10:30)
[2024-07-08] MEDS: Sennosides 8.6 MG TABLET 25.8 MG PO (10:31)
[2024-07-08] MEDS: Multivitamin TABLET 1 TAB PO (10:33)
[2024-07-08] MEDS: Cyanocobalamin (Vitamin B-12) 1,000 MCG TABLET 1000 MCG PO (10:33)
[2024-07-08] MEDS: Thiamine HCL 100 MG TABLET PO (10:33)
[2024-07-08] MEDS: Escitalopram Oxalate 10 MG TABLET PO (10:33)
[2024-07-08] MEDS: polyethylene glycoL 3350 17 GM POWD.PACK PO (10:33)
[2024-07-08] MEDS: Ascorbic Acid 500 MG TABLET 1000 MG PO (10:33)
[2024-07-08] MEDS: Lidocaine 4 % Patch ADH..PATCH 1 PATCH TRANSDERMA (10:34)
--- NOTE | 2024-07-08 11:05 | P.PNIM_ITS ---
Subjective Subjective Date of Service: 07/08/24 Interval History: no fever still on O2 2L Review of Systems Review of Systems: Yes all other systems are reviewed and are negative Physical Exam 2 Vital Signs: Vital Signs: Last Vital Signs Temp 97.1 F 07/08/24 07:39 Pulse 106 H 07/08/24 07:39 Resp 20 07/08/24 07:39 BP 112/59 L 07/08/24 07:39 Pulse Ox 98 07/08/24 07:39 O2 Del Method Oxymask 07/08/24 07:39 O2 Flow Rate 2 07/08/24 07:39 Oxygen Flow Rate 3 07/07/24 09:00 BMI result Body Mass Index 28.7 Gen: in no acute distress HEENT: sclera anicteric, moist mucus membranes Neck: supple Lungs: clear to auscultation bilaterally Heart: regular rate and rhythm, no murmurs Abd: soft, non-tender, non-distended : suprapubic catheter draining clear yellow urine Ext: no edema Skin: warm/well-perfused Neuro: alert and oriented x3, no focal findings Psych: appropriate affect Objective Data Active Medications Acetaminophen (Acetaminophen 325 Mg Tablet) 650 mg PO Q6H PRN PRN Reason: Pain, Mild (Pain Scale 1-3), fever or headache Apixaban (Apixaban 2.5 Mg Tablet) 2.5 mg PO BID [facility] Last Admin: 07/08/24 10:30 Dose: 2.5 mg Documented By: HUMBERTO Apixaban (Apixaban 2.5 Mg Tablet) 2.5 mg PO BID [facility] Last Admin: 07/08/24 10:35 Dose: Not Given Documented By: HUMBERTO Non-Admin Reason: Duplicate Order Ascorbic Acid (Ascorbic Acid 500 Mg Tablet) 1,000 mg PO DAILY [facility] Last Admin: 07/08/24 10:33 Dose: 1,000 mg Documented By: HUMBERTO Buspirone HCl (Buspirone Hcl 5 Mg Tablet) 5 mg PO BID [facility] Last Admin: 07/08/24 10:30 Dose: 5 mg Documented By: HUMBERTO Calcium Carbonate (Calcium Carbonate 750 Mg Tab.Chew) 750 mg PO Q4H PRN PRN Reason: Heartburn Cyanocobalamin (Cyanocobalamin (Vitamin B-12) 1,000 Mcg Tablet) 1,000 mcg PO DAILY [facility] Last Admin: 07/08/24 10:33 Dose: 1,000 mcg Documented By: HUMBERTO Dexamethasone Sodium Phosphate (Dexamethasone Sod Phosphate 4 Mg/Ml Vial) 6 mg IVPUSH DAILY [facility] Last Admin: 07/08/24 10:29 Dose: 6 mg Documented By: HUMBERTO Escitalopram Oxalate (Escitalopram Oxalate 10 Mg Tablet) 10 mg PO DAILY [facility] Last Admin: 07/08/24 10:33 Dose: 10 mg Documented By: HUMBERTO Glucose (Glucose Gel 15 Gm Gel..Gram.) 15 gm PO Q15M PRN; Protocol PRN Reason: per Hypoglycemia Standing Ord. Guaifenesin (Guaifenesin 200 Mg/10 Ml 10 Ml Liquid) 5 ml PO Q4H PRN PRN Reason: Cough Dextrose (D10) 250 mls @ 750 mls/hr IV Q15M PRN; Protocol PRN Reason: per Hypoglycemia Standing Ord. Insulin Human Lispro (Insulin Lispro 100 Unit/Ml 3 Ml Vial) 0 unit SUBCUT QIDACHS [facility]; Protocol Last Admin: 07/08/24 09:38 Dose: Not Given Documented By: HUMBERTO Non-Admin Reason: No Insulin Coverage Lidocaine (Lidocaine 4 % Patch Adh..Patch) 1 patch TRANSDERMA DAILY [facility]; Protocol Last Admin: 07/08/24 10:34 Dose: 1 patch Documented By: HUMBERTO Loperamide HCl (Loperamide Hcl 2 Mg Capsule) 2 mg PO Q3H PRN PRN Reason: Loose Stool Magnesium Hydroxide (Milk Of Magnesia 30 Ml Oral.Susp) 30 ml PO DAILY PRN PRN Reason: Constipation Melatonin (Melatonin 3 Mg Tablet) 6 mg PO BEDTIME PRN PRN Reason: Insomnia Mirabegron (Mirabegron 50 Mg Tab.Er.24h) 50 mg PO DAILY [facility] Last Admin: 07/08/24 10:30 Dose: 50 mg Documented By: HUMBERTO Multi-Ingred Cream/Lotion/Oil/Oint (Mineral Oil/Petrolatum,White 106 Gm Tube) 1 appl TOPICAL DAILY PRN PRN Reason: dry scalp and meyers for dandruff Multivitamins/Vitamin C (Multivitamin Tablet) 1 tab PO DAILY [facility] Last Admin: 07/08/24 10:33 Dose: 1 tab Documented By: HUMBERTO Ondansetron HCl (Ondansetron Hcl 4 Mg/2 Ml Vial) 4 mg IVPUSH Q4H PRN PRN Reason: Nausea and Vomiting Oxycodone HCl (Oxycodone Hcl Immed Release 5 Mg Tablet) 10 mg PO Q6H PRN PRN Reason: Pain,severe Polyethylene Glycol (Polyethylene Glycol 3350 17 Gm Powd.Pack) 17 gm PO DAILY [facility] Last Admin: 07/08/24 10:33 Dose: 17 gm Documented By: HUMBERTO Senna (Sennosides 8.6 Mg Tablet) 25.8 mg PO DAILY [facility] Last Admin: 07/08/24 10:31 Dose: 25.8 mg Documented By: HUMBERTO Sodium Biphosphate/Sodium Phosphate (Sodium Phosphate,Mayes-Dibasic 133 Ml Enema) 118 ml SD DAILY PRN PRN Reason: Constipation Sodium Chloride (0.9 % Sodium Chloride Flush 3 Ml Syringe) 3 ml IVFLUSH QSHIFT [facility] Last Admin: 07/08/24 10:27 Dose: 3 ml Documented By: HUMBERTO Thiamine HCl (Thiamine Hcl 100 Mg Tablet) 100 mg PO DAILY [facility] Last Admin: 07/08/24 10:33 Dose: 100 mg Documented By: HUMBERTO Zinc Oxide (Zinc Oxide 20% Ointment 28.35 Gm Tube) 1 appl TOPICAL DAILY PRN PRN Reason: skin integrity Labs 07/07/24 10:30 07/07/24 10:30 Labs: Laboratory Results - last 24 hr 07/07/24 07/07/24 07/07/24 10:30 14:02 15:55 POC Glucose Troponin I High Sens 6.7 C-Reactive Protein 3.15 H B-Natriuretic Peptide TSH 1.19 Urine Color Yellow Urine Appearance Turbid Urine pH 6.0 Ur Specific Barto 1.020 Urine Protein 100 (2+) H Urine Glucose (UA) Negative Urine Ketones Negative Urine Blood Moderate (2+) H Urine Nitrite Positive H Ur Leukocyte Esterase Large (3+) H Urine RBC 3-5 H Urine WBC >50 H Ur Squamous Epith Cells 3-5 Urine Bacteria 4+ Hyaline Casts 0-2 Granular Casts Present Urine Opiates Screen Not Detected Ur Buprenorphine Scrn Not Detected Ur Oxycodone Screen Not Detected Urine Methadone Screen Not Detected Urine Fentanyl Screen Not Detected Ur Barbiturates Screen Not Detected Ur Phencyclidine Scrn Not Detected Ur Amphetamines Screen Not Detected U Benzodiazepines Scrn Not Detected Urine Cocaine Screen Not Detected U Marijuana (THC) Screen Not Detected Influenza Type A (PCR) NEGATIVE Influenza Type B (PCR) NEGATIVE RSV RNA Qual (PCR) NEGATIVE SARS-CoV-2 RNA (RT-PCR) POSITIVE A 07/07/24 07/07/24 07/07/24 16:38 20:17 21:17 POC Glucose 107 107 Troponin I High Sens C-Reactive Protein B-Natriuretic Peptide 40 TSH Urine Color Urine Appearance Urine pH Ur Specific Barto Urine Protein Urine Glucose (UA) Urine Ketones Urine Blood Urine Nitrite Ur Leukocyte Esterase Urine RBC Urine WBC Ur Squamous Epith Cells Urine Bacteria Hyaline Casts Granular Casts Urine Opiates Screen Ur Buprenorphine Scrn Ur Oxycodone Screen Urine Methadone Screen Urine Fentanyl Screen Ur Barbiturates Screen Ur Phencyclidine Scrn Ur Amphetamines Screen U Benzodiazepines Scrn Urine Cocaine Screen U Marijuana (THC) Screen Influenza Type A (PCR) Influenza Type B (PCR) RSV RNA Qual (PCR) SARS-CoV-2 RNA (RT-PCR) 07/08/24 08:15 POC Glucose 101 Troponin I High Sens C-Reactive Protein B-Natriuretic Peptide TSH Urine Color Urine Appearance Urine pH Ur Specific Barto Urine Protein Urine Glucose (UA) Urine Ketones Urine Blood Urine Nitrite Ur Leukocyte Esterase Urine RBC Urine WBC Ur Squamous Epith Cells Urine Bacteria Hyaline Casts Granular Casts Urine Opiates Screen Ur Buprenorphine Scrn Ur Oxycodone Screen Urine Methadone Screen Urine Fentanyl Screen Ur Barbiturates Screen Ur Phencyclidine Scrn Ur Amphetamines Screen U Benzodiazepines Scrn Urine Cocaine Screen U Marijuana (THC) Screen Influenza Type A (PCR) Influenza Type B (PCR) RSV RNA Qual (PCR) SARS-CoV-2 RNA (RT-PCR) Assessment and Plan (1) COVID-19: Status: Acute Plan 84yo M resident of [facility] with DM2, autonomic dysfunction, dementia, BPH, CKD3, pAF on apixaban, suprapubic catheter, and chronic anemia; presenting with acute lethargy and found to be hypoxic from Covid-19 infection Covid-19 infection - likely reinfection rather than persistence; dexamethasone 07/07-07/16, wean O2 as tolerated, CRP acute encephalopathy due to infection - treat infection as above acute hypoxic respiratory failure - supplemental O2, wean as tolerated pAF - continue apixaban DM2 - DM diet, pretty-dose lispro CKD3 - SCr at baseline BPH - has suprapubic catheter VTE ppx - apixaban dispo - eventual return to [facility] In my clinical judgment, the patient requires continued inpatient hospitalization for the following reasons: hypoxia Total time managing care of this patient today: 40 minutes. Quality Stroke Does the patient have a stroke diagnosis?: No VTE Prior VTE?: No VTE Risk Level:: Medical - moderate - high VTE Device Contraindication: N/A - Device Ordered VTE Drug Contraindication: N/A - Med Ordered
[2024-07-08 11:52] LABS: Glucose, Whole Blood 97 mg/dL (60-115)
--- NOTE | 2024-07-08 12:06 | MHC.CM.PN ---
IMM 07/08/24, discussed with HCP, copy left in pt.'s room. Pt lives at [facility], DCP is for him to return there via BLS at DC. HCP : niece, Allyson, confirmed and copy on file. CM to follow and assist with DC plan.
[2024-07-08 13:36] LABS: Hematocrit 32.1 % (42.0-52.0); Hemoglobin 9.8 g/dl (14.0-18.0); Immature Retic Fraction 30.4 % (2.3-13.4); Mean Corpuscular HGB Conc 30.5 g/dl (31.0-36.0); Mean Corpuscular Volume 101.6 fL (80.0-98.0); Mean Platelet Volume 9.7 fL (9.4-12.4); Platelet Count 272 X10*3/uL (160-400); Red Blood Count 3.16 X10*6/uL (4.60-5.80); Red Cell Distribution Width 16.6 % (11.0-16.0); Retic HGB Equivalent 30.9 pg (30.0-35.0); Reticulocyte Percent 2.7 % (0.5-1.8); Reticulocytes Absolute 0.085 X10*6/uL (0.026-0.095); White Blood Count 11.2 X10*3/uL (4.8-10.8)
[2024-07-08 13:59] LABS: B Type Natriuretic Peptide 60 pg/mL (<100)
[2024-07-08 14:18] LABS: Iron 21 mcg/dL (45-160); Lactate Dehydrogenase 173 U/L (118-273); Percent Iron Saturation 9 % (15-50); Total Iron Binding Capacity 238 mcg/dL (228-428); Unsaturated Iron Binding 217 ug/dL
[2024-07-08 14:20] LABS: Anion Gap 12 (12-20); Blood Urea Nitrogen 24 mg/dL (9-16); Carbon Dioxide 33 mmol/L (22-29); Chloride 100 mmol/L (96-108); Creatinine Clr Calc Pharmacy 71.5; Estimated Glomerular Filt Rate > 60; Glucose Random 133 mg/dL (60-115); Magnesium 2.2 mg/dL (1.6-2.6); Potassium 4.5 mmol/L (3.3-5.1); Sodium 140 mmol/L (135-145)
[2024-07-08 14:32] LABS: Folate 13.2 ng/mL (> or = 4.0); Vitamin B12 1341 pg/mL (200-900)
[2024-07-08 16:56] LABS: Glucose, Whole Blood 146 mg/dL (60-115)
[2024-07-08 20:13] LABS: Glucose, Whole Blood 163 mg/dL (60-115)
[2024-07-08] MEDS: Insulin Lispro 100 UNIT/ML 3 ML VIAL SUBCUT (20:46)
[2024-07-08 22:19] LABS: CDiff Gene PCR NEGATIVE (Negative)
[2024-07-09 03:35] VITALS: BP 115/54; PULSE 110; RESP 21; TEMP 36.6; O2SAT 98
[2024-07-09 07:03] LABS: Hematocrit 31.2 % (42.0-52.0); Hemoglobin 9.3 g/dl (14.0-18.0); Mean Corpuscular HGB Conc 29.8 g/dl (31.0-36.0); Mean Corpuscular Hemoglobin 30.1 pg (27.0-33.0); Mean Platelet Volume 9.6 fL (9.4-12.4); Platelet Count 265 X10*3/uL (160-400); Red Blood Count 3.09 X10*6/uL (4.60-5.80); Red Cell Distribution Width 16.5 % (11.0-16.0); White Blood Count 9.4 X10*3/uL (4.8-10.8)
[2024-07-09 07:11] LABS: Anion Gap 12 (12-20); Blood Urea Nitrogen 24 mg/dL (9-16); C Reactive Protein 2.12 mg/dL (< or = 0.50); Calcium 9.4 mg/dL (8.4-10.2); Carbon Dioxide 33 mmol/L (22-29); Chloride 102 mmol/L (96-108); Creatinine Clr Calc Pharmacy 75.8; Estimated Glomerular Filt Rate > 60; Glucose Random 83 mg/dL (60-115); Potassium 4.1 mmol/L (3.3-5.1); Sodium 143 mmol/L (135-145)
[2024-07-09 08:00] VITALS: BP 101/54; PULSE 92; RESP 20; TEMP 36; O2SAT 98
--- NOTE | 2024-07-09 09:33 | HO.PM.IMPN ---
Subjective Subjective Date of Service: 07/09/24 Interval History: no fever cough no dyspnea wants to go back to [facility] Review of Systems Review of Systems: Yes all other systems are reviewed and are negative Physical Exam Vital Signs: Vital Signs: Last Vital Signs Temp 96.8 F 07/09/24 08:00 Pulse 92 07/09/24 08:00 Resp 20 07/09/24 08:00 BP 101/54 L 07/09/24 08:00 Pulse Ox 98 07/09/24 08:00 O2 Del Method Oxymask 07/09/24 08:00 O2 Flow Rate 2 07/09/24 08:00 Oxygen Flow Rate 3 07/07/24 09:00 BMI result Body Mass Index 28.7 Gen: in no acute distress HEENT: sclera anicteric, moist mucus membranes Neck: supple Lungs: clear to auscultation bilaterally Heart: regular rate and rhythm, no murmurs Abd: soft, non-tender, non-distended : suprapubic catheter draining clear yellow urine Ext: no edema Skin: warm/well-perfused Neuro: alert and oriented x3, no focal findings Psych: appropriate affect Objective Data Active Medications Acetaminophen (Acetaminophen 325 Mg Tablet) 650 mg PO Q6H PRN PRN Reason: Pain, Mild (Pain Scale 1-3), fever or headache Apixaban (Apixaban 2.5 Mg Tablet) 2.5 mg PO BID [facility] Last Admin: 07/08/24 20:45 Dose: 2.5 mg Documented By: JUNIOR Ascorbic Acid (Ascorbic Acid 500 Mg Tablet) 1,000 mg PO DAILY [facility] Last Admin: 07/08/24 10:33 Dose: 1,000 mg Documented By: HUMBERTO Buspirone HCl (Buspirone Hcl 5 Mg Tablet) 5 mg PO BID [facility] Last Admin: 07/08/24 20:45 Dose: 5 mg Documented By: JUNIOR Calcium Carbonate (Calcium Carbonate 750 Mg Tab.Chew) 750 mg PO Q4H PRN PRN Reason: Heartburn Cyanocobalamin (Cyanocobalamin (Vitamin B-12) 1,000 Mcg Tablet) 1,000 mcg PO DAILY [facility] Last Admin: 07/08/24 10:33 Dose: 1,000 mcg Documented By: HUMBERTO Dexamethasone Sodium Phosphate (Dexamethasone Sod Phosphate 4 Mg/Ml Vial) 6 mg IVPUSH DAILY [facility] Last Admin: 07/08/24 10:29 Dose: 6 mg Documented By: HUMBERTO Escitalopram Oxalate (Escitalopram Oxalate 10 Mg Tablet) 10 mg PO DAILY [facility] Last Admin: 07/08/24 10:33 Dose: 10 mg Documented By: HUMBERTO Glucose (Glucose Gel 15 Gm Gel..Gram.) 15 gm PO Q15M PRN; Protocol PRN Reason: per Hypoglycemia Standing Ord. Guaifenesin (Guaifenesin 200 Mg/10 Ml 10 Ml Liquid) 5 ml PO Q4H PRN PRN Reason: Cough Dextrose (D10) 250 mls @ 750 mls/hr IV Q15M PRN; Protocol PRN Reason: per Hypoglycemia Standing Ord. Insulin Human Lispro (Insulin Lispro 100 Unit/Ml 3 Ml Vial) 0 unit SUBCUT QIDACHS [facility]; Protocol Last Admin: 07/09/24 09:12 Dose: Not Given Documented By: MICHELLE Non-Admin Reason: Patient Refused Lidocaine (Lidocaine 4 % Patch Adh..Patch) 1 patch TRANSDERMA DAILY [facility]; Protocol Last Admin: 07/08/24 10:34 Dose: 1 patch Documented By: HUMBERTO Loperamide HCl (Loperamide Hcl 2 Mg Capsule) 2 mg PO Q3H PRN PRN Reason: Loose Stool Magnesium Hydroxide (Milk Of Magnesia 30 Ml Oral.Susp) 30 ml PO DAILY PRN PRN Reason: Constipation Melatonin (Melatonin 3 Mg Tablet) 6 mg PO BEDTIME PRN PRN Reason: Insomnia Mirabegron (Mirabegron 50 Mg Tab.Er.24h) 50 mg PO DAILY [facility] Last Admin: 07/08/24 10:30 Dose: 50 mg Documented By: HUMBERTO Multi-Ingred Cream/Lotion/Oil/Oint (Mineral Oil/Petrolatum,White 106 Gm Tube) 1 appl TOPICAL DAILY PRN PRN Reason: dry scalp and meyers for dandruff Multivitamins/Vitamin C (Multivitamin Tablet) 1 tab PO DAILY [facility] Last Admin: 07/08/24 10:33 Dose: 1 tab Documented By: HUMBERTO Ondansetron HCl (Ondansetron Hcl 4 Mg/2 Ml Vial) 4 mg IVPUSH Q4H PRN PRN Reason: Nausea and Vomiting Oxycodone HCl (Oxycodone Hcl Immed Release 5 Mg Tablet) 10 mg PO Q6H PRN PRN Reason: Pain,severe Polyethylene Glycol (Polyethylene Glycol 3350 17 Gm Powd.Pack) 17 gm PO DAILY [facility] Last Admin: 07/09/24 09:26 Dose: Not Given Documented By: MICHELLE Non-Admin Reason: pt having watery stools Senna (Sennosides 8.6 Mg Tablet) 25.8 mg PO DAILY [facility] Last Admin: 07/09/24 09:26 Dose: Not Given Documented By: MICHELLE Non-Admin Reason: pt having watery stools Sodium Biphosphate/Sodium Phosphate (Sodium Phosphate,Harding-Dibasic 133 Ml Enema) 118 ml NM DAILY PRN PRN Reason: Constipation Sodium Chloride (0.9 % Sodium Chloride Flush 3 Ml Syringe) 3 ml IVFLUSH QSHIFT [facility] Last Admin: 07/08/24 20:46 Dose: 3 ml Documented By: JUNIOR Thiamine HCl (Thiamine Hcl 100 Mg Tablet) 100 mg PO DAILY [facility] Last Admin: 07/08/24 10:33 Dose: 100 mg Documented By: HUMBERTO Zinc Oxide (Zinc Oxide 20% Ointment 28.35 Gm Tube) 1 appl TOPICAL DAILY PRN PRN Reason: skin integrity Labs 07/09/24 06:31 07/09/24 06:31 Labs: Laboratory Results - last 24 hr 07/08/24 07/08/24 07/08/24 11:25 13:02 16:46 MCV 101.6 H MCH 31.0 MCHC 30.5 L RDW 16.6 H Plt Count 272 MPV 9.7 Absolute Nucleated RBC 0.000 Nucleated RBC % (auto) 0.0 Absolute Retic 0.085 Percent Retic 2.7 H Immature Retic Fraction 30.4 H Retic Hgb Equivalent 30.9 Anion Gap 12 Estim Creat Clear Calc 71.5 Estimated GFR > 60 POC Glucose 97 146 H Random Glucose 133 H Calcium 9.0 Magnesium 2.2 Iron 21 L TIBC 238 % Saturation 9 L Unsat Iron Binding 217 Lactate Dehydrogenase 173 C-Reactive Protein B-Natriuretic Peptide 60 Vitamin B12 1341 H Folate 13.2 C. difficile Tox B Gene 07/08/24 07/08/24 07/09/24 20:07 21:15 06:31 MCV 101.0 H MCH 30.1 MCHC 29.8 L RDW 16.5 H Plt Count 265 MPV 9.6 Absolute Nucleated RBC 0.000 Nucleated RBC % (auto) 0.0 Absolute Retic Percent Retic Immature Retic Fraction Retic Hgb Equivalent Anion Gap 12 Estim Creat Clear Calc 75.8 Estimated GFR > 60 POC Glucose 163 H Random Glucose 83 Calcium 9.4 Magnesium Iron TIBC % Saturation Unsat Iron Binding Lactate Dehydrogenase C-Reactive Protein 2.12 H B-Natriuretic Peptide Vitamin B12 Folate C. difficile Tox B Gene NEGATIVE Microbiology Microbiology Results: Microbiology 07/07/24 16:38 Urine Culture - Preliminary Urine Catheterized - Straight Catheter Culture in progress. Assessment and Plan (1) COVID-19: Status: Acute Plan d3 84yo M resident of [facility] with DM2, autonomic dysfunction, dementia, BPH, CKD3, pAF on apixaban, suprapubic catheter, and chronic anemia; presenting with acute lethargy and found to be hypoxic from Covid-19 infection Covid-19 infection - likely reinfection rather than persistence; dexamethasone 07/07-07/16, wean O2 as tolerated, CRP coming down acute encephalopathy due to infection - treat infection as above acute hypoxic respiratory failure - supplemental O2, wean as tolerated pAF - continue apixaban DM2 - DM diet, pretty-dose lispro CKD3 - SCr at baseline BPH - has suprapubic catheter VTE ppx - apixaban dispo - eventual return to [facility] In my clinical judgment, the patient requires continued inpatient hospitalization for the following reasons: hypoxia Total time managing care of this patient today: 40 minutes. Quality Stroke Does the patient have a stroke diagnosis?: No VTE Prior VTE?: No VTE Risk Level:: Medical - moderate - high VTE Device Contraindication: N/A - Device Ordered VTE Drug Contraindication: N/A - Med Ordered
[2024-07-09] MEDS: Thiamine HCL 100 MG TABLET PO (09:44)
[2024-07-09] MEDS: Escitalopram Oxalate 10 MG TABLET PO (09:44)
[2024-07-09] MEDS: Apixaban 2.5 MG TABLET PO ×2 (09:44→22:27)
[2024-07-09] MEDS: Mirabegron 50 MG TAB.ER.24H PO (09:44)
[2024-07-09] MEDS: dexAMETHasone sod phosphate 4 MG/ML VIAL 6 MG IVPUSH (09:44)
[2024-07-09] MEDS: Multivitamin TABLET 1 TAB PO (09:45)
[2024-07-09] MEDS: Cyanocobalamin (Vitamin B-12) 1,000 MCG TABLET 1000 MCG PO (09:45)
[2024-07-09] MEDS: busPIRone HCl 5 MG TABLET PO ×2 (09:45→22:27)
[2024-07-09] MEDS: Ascorbic Acid 500 MG TABLET 1000 MG PO (09:45)
[2024-07-09] MEDS: 0.9 % Sodium Chloride Flush 3 ML SYRINGE IVFLUSH (09:45)
[2024-07-09] MEDS: Lidocaine 4 % Patch ADH..PATCH 1 PATCH TRANSDERMA (09:45)
[2024-07-09 11:42] VITALS: BP 100/56; PULSE 80; RESP 20; TEMP 36.6; O2SAT 92
--- NOTE | 2024-07-09 13:56 | MHC.CM.PN ---
Per rounds, pt is not readt for DC, he requires ongoing treatment for Hypoxia. DCP is for him to return to [facility].
[2024-07-09 16:00] VITALS: BP 111/57; PULSE 81; RESP 20; TEMP 36.9; O2SAT 98
--- NOTE | 2024-07-09 16:24 | HO.WOUND ---
Wound Consult: Initial 84yr old?male admitted to [facility] on 07/07/24 - See progress notes and H&P for detailed history.? Wound consult placed for coccyx wound POA.? Patient agreeable to assessment and photo documentation.? Coccyx Etiology: Stage 2 Pressure Injury ??Present on Admission Measurements: see charting for detailed measurement Wound Bed: pink moist wound bed Drainage / Odor: scant sanguineous drainage - no odor Edges: ?linear Prisca wound: ?MASD No Induration, Fluctuance or Warmth noted Pain: tenderness and pain reported Goals of Treatment: ? Triad and foam dressing to protect from moisture and friction and aid in pressure redistribution Recommendations: 1. Turn and Reposition every 2 hours and as needed for patient comfort.? Use pillows or wedges to support off loading positions. 2. Off Load all bony prominences with use of pillows and heel boots if needed.? Apply Preventative foams where needed. ? 3. Monitor for incontinence and moisture control, use barrier creams when needed for prevention and treatment. 4. Provide adequate and supplemental nutrition.? 5. Order low air loss mattress. 6. When applicable maintain blood glucose levels per Providers order. 7. Coccyx - Off Load Pressure? - Cleanse with PH balance spray or wipes, pat dry. ?Apply thin layer of Triad to wound bed. Do not remove all of paste between applications as this may cause further skin damage.? Cover with foam dressing to aid in off loading and protection from friction. Change every other day and PRN. Re-consult wound care Nurse for wound deterioration or wound changes.
[2024-07-09 17:08] LABS: Glucose, Whole Blood 147 mg/dL (60-115)
[2024-07-09 19:21] VITALS: BP 116/55; PULSE 83; RESP 18; TEMP 37.1; O2SAT 92
[2024-07-09 23:14] LABS: Glucose, Whole Blood 138 mg/dL (60-115)
[2024-07-09 23:48] VITALS: BP 101/53; PULSE 74; RESP 20; TEMP 36.6; O2SAT 96
[2024-07-10 02:00] VITALS: O2SAT 89
[2024-07-10 02:08] VITALS: O2SAT 97
[2024-07-10 04:00] VITALS: BP 110/56; PULSE 73; RESP 20; TEMP 36.6; O2SAT 97
[2024-07-10 06:37] LABS: VBG Base Excess 13.7 mmol/L; VBG HCO3 40 mmol/L (22-26); VBG pCO2 59 mmHg; VBG pH 7.43 (7.32-7.43); VBG pO2 97 mmHg
[2024-07-10 06:38] LABS: Venous Blood Gas Refer to POC result
[2024-07-10 06:52] LABS: Anion Gap 9 (12-20); Blood Urea Nitrogen 21 mg/dL (9-16); Calcium 9.3 mg/dL (8.4-10.2); Carbon Dioxide 34 mmol/L (22-29); Chloride 101 mmol/L (96-108); Creatinine Clr Calc Pharmacy 69.2; Estimated Glomerular Filt Rate > 60; Glucose Random 97 mg/dL (60-115); Potassium 3.4 mmol/L (3.3-5.1); Sodium 141 mmol/L (135-145)
[2024-07-10 08:00] VITALS: BP 104/53; PULSE 74; RESP 20; TEMP 36.4; O2SAT 91
[2024-07-10] MEDS: Thiamine HCL 100 MG TABLET PO (08:11)
[2024-07-10] MEDS: Mirabegron 50 MG TAB.ER.24H PO (08:11)
[2024-07-10] MEDS: Ascorbic Acid 500 MG TABLET 1000 MG PO (08:11)
[2024-07-10] MEDS: Multivitamin TABLET 1 TAB PO (08:11)
[2024-07-10] MEDS: Cyanocobalamin (Vitamin B-12) 1,000 MCG TABLET 1000 MCG PO (08:11)
[2024-07-10] MEDS: Sennosides 8.6 MG TABLET 25.8 MG PO (08:11)
[2024-07-10] MEDS: Apixaban 2.5 MG TABLET PO (08:11)
[2024-07-10] MEDS: Ferrous Sulfate 324 MG TABLET.DR PO (08:11)
[2024-07-10] MEDS: busPIRone HCl 5 MG TABLET PO (08:11)
[2024-07-10] MEDS: Lidocaine 4 % Patch ADH..PATCH 1 PATCH TRANSDERMA (08:12)
[2024-07-10] MEDS: polyethylene glycoL 3350 17 GM POWD.PACK PO (08:12)
[2024-07-10] MEDS: Escitalopram Oxalate 10 MG TABLET PO (08:12)
[2024-07-10] MEDS: dexAMETHasone sod phosphate 4 MG/ML VIAL 6 MG IVPUSH (08:13)
[2024-07-10] MEDS: 0.9 % Sodium Chloride Flush 3 ML SYRINGE IVFLUSH (08:14)
--- NOTE | 2024-07-10 10:33 | MHC.CM.PN ---
Pt has been medically cleared for DC, He will return to [facility] this afternoon via BLS, HCP Allyson notified via VM message.
[2024-07-10 11:46] LABS: Glucose, Whole Blood 146 mg/dL (60-115)
[2024-07-10 11:55] VITALS: BP 110/57; PULSE 77; RESP 20; TEMP 36.7; O2SAT 92
--- NOTE | 2024-07-10 12:49 | P.DS_ITS ---
DS: Providers Provider Date of Service: 07/10/24 Date of admission: 07/07/24 17:34 Date of discharge: 07/10/24 Primary care physician: Medhat Fuentes MD Consults: 07/09/24 01:35 Consult to Wound Care Routine Reason for consultation: Inner buttocks fold wound, [employer] but needs treatment orders open wound DS: Diagnosis Discharge Diagnosis (1) COVID-19: Status: Acute (2) Acute hypoxic respiratory failure: Status: Acute (3) Iron deficiency anemia: Status: Acute DS: Summary Hospital Course Hospital Course: From my admission H+P, 07/07/24: 84yo M resident of [facility] with DM2, autonomic dysfunction, dementia, BPH, CKD3, pAF on apixaban, suprapubic catheter, and chronic anemia; last admitted here 05/19-05/22 for hypoxia due to Covid infection. He was found by [facility] staff to be lethargic this AM with HR 33 and hypoxia with SaO2 86%. He reportedly complained of stomach pain. He was placed on O2 via nasal cannula and transported to the [facility] ED. Room air SaO2 was 83%. CXR showed bronchial wall thickening but CTA showed interstitial prominence with no focal airspace disease. There was no PE. Covid-19 PCR positive. CRP 3.15, BNP 40. He was given 6 mg of IV dexamethasone. He denies fever, cough, or chest pain. He says his abdominal pain is chronic and from his suprapubic catheter. 84yo M resident of [facility] with DM2, autonomic dysfunction, dementia, BPH, CKD3, pAF on apixaban, suprapubic catheter, and chronic anemia; presenting with acute lethargy and found to be hypoxic from Covid-19 infection. He was admitted to the telemetry unit on isolation and treated with 2L of oxygen via NC and 4 days of IV dexamethasone. CRP came down and he was weaned off oxygen. Lethargy resolved. He was found to have iron deficiency anemia and started on ferrous sulfate. He did grow Pseudomonas from the urine but this is likely a colonizer in a patient with a chronic suprapubic catheter annd no signs of sepsis. He was discharged back to the [facility] on 6 more days of dexamethasone. Time Attestation Discharge Coordination Time (in mins): 40 Quality: Safe Use of Opioids Does Pt have an Active Cancer Diagnosis on the Problem List?: No Quality: Stroke Does the patient have a stroke diagnosis?: No Physical Exam Vital Signs: Vital Signs: Last Vital Signs Temp 98.0 F 07/10/24 11:55 Pulse 77 07/10/24 11:55 Resp 20 07/10/24 11:55 BP 110/57 L 07/10/24 11:55 Pulse Ox 92 07/10/24 11:55 O2 Del Method Room Air 07/10/24 11:55 O2 Flow Rate 1 07/10/24 04:00 Oxygen Flow Rate 3 07/07/24 09:00 BMI result Body Mass Index 28.7 Gen: in no acute distress HEENT: sclera anicteric, moist mucus membranes Neck: supple Lungs: clear to auscultation bilaterally Heart: regular rate and rhythm, no murmurs Abd: soft, non-tender, non-distended : suprapubic catheter draining clear yellow urine Ext: no edema Skin: warm/well-perfused Neuro: alert and oriented x3, no focal findings Psych: appropriate affect DS: Data Data Completed and Pending Completed studies during hospitalization [Text1]: Laboratory Results WBC 9.4 X10*3/uL (4.8-10.8) 07/09/24 06:31 RBC 3.09 X10*6/uL (4.60-5.80) L 07/09/24 06:31 Hgb 9.3 g/dl (14.0-18.0) L 07/09/24 06:31 Hct 31.2 % (42.0-52.0) L 07/09/24 06:31 MCV 101.0 fL (80.0-98.0) H 07/09/24 06:31 MCH 30.1 pg (27.0-33.0) 07/09/24 06:31 MCHC 29.8 g/dl (31.0-36.0) L 07/09/24 06:31 RDW 16.5 % (11.0-16.0) H 07/09/24 06:31 Plt Count 265 X10*3/uL (160-400) 07/09/24 06:31 MPV 9.6 fL (9.4-12.4) 07/09/24 06:31 Immature Gran % (Auto) 0.4 % (0.0-0.4) 07/07/24 10:30 Neut % (Auto) 72.9 % (45-73) 07/07/24 10:30 Lymph % (Auto) 13.4 % (20-40) L 07/07/24 10:30 [place] % (Auto) 10.7 % (2-11) 07/07/24 10:30 Eos % (Auto) 2.0 % (0-4) 07/07/24 10:30 Baso % (Auto) 0.6 % (0-2) 07/07/24 10:30 Lymph # (Auto) 1.0 X10*3/uL (1.2-4.9) L 07/07/24 10:30 [place] # (Auto) 0.8 X10*3/uL (0.1-1.2) 07/07/24 10:30 Eos # (Auto) 0.1 X10*3/uL (0.0-0.4) 07/07/24 10:30 Baso # (Auto) 0.0 X10*3/uL (0.0-0.2) 07/07/24 10:30 Abs Immat Gran (auto) 0.03 X10*3/uL (0.00-0.03) 07/07/24 10:30 Absolute Neuts (auto) 5.2 x10*3/uL (2.0-8.3) 07/07/24 10:30 Absolute Nucleated RBC 0.000 X10*3/uL (0.0-0.012) 07/09/24 06:31 Nucleated RBC % (auto) 0.0 /100WBC (0.0-0.2) 07/09/24 06:31 Absolute Retic 0.085 X10*6/uL (0.026-0.095) 07/08/24 13:02 Percent Retic 2.7 % (0.5-1.8) H 07/08/24 13:02 Immature Retic Fraction 30.4 % (2.3-13.4) H 07/08/24 13:02 Retic Hgb Equivalent 30.9 pg (30.0-35.0) 07/08/24 13:02 VBG pH 7.43 (7.32-7.43) 07/10/24 06:33 VBG pCO2 59 mmHg 07/10/24 06:33 VBG pO2 97 mmHg 07/10/24 06:33 VBG HCO3 40 mmol/L (22-26) H 07/10/24 06:33 VBG O2 Saturation 98.0 % 07/10/24 06:33 VBG Base Excess 13.7 mmol/L 07/10/24 06:33 Sodium 141 mmol/L (135-145) 07/10/24 06:24 Potassium 3.4 mmol/L (3.3-5.1) 07/10/24 06:24 Chloride 101 mmol/L (96-108) 07/10/24 06:24 Carbon Dioxide 34 mmol/L (22-29) H 07/10/24 06:24 Anion Gap 9 (12-20) L 07/10/24 06:24 BUN 21 mg/dL (9-16) H 07/10/24 06:24 Creatinine 0.92 mg/dL (0.5-1.4) 07/10/24 06:24 Estim Creat Clear Calc 69.2 07/10/24 06:24 Estimated GFR > 60 07/10/24 06:24 POC Glucose 146 mg/dL (60-115) H 07/10/24 11:41 Random Glucose 97 mg/dL (60-115) 07/10/24 06:24 Calcium 9.3 mg/dL (8.4-10.2) 07/10/24 06:24 Magnesium 2.2 mg/dL (1.6-2.6) 07/08/24 13:02 Iron 21 mcg/dL (45-160) L 07/08/24 13:02 TIBC 238 mcg/dL (228-428) 07/08/24 13:02 % Saturation 9 % (15-50) L 07/08/24 13:02 Unsat Iron Binding 217 ug/dL 07/08/24 13:02 Total Bilirubin 0.4 mg/dL (0.0-1.0) 07/07/24 10:30 AST 18 U/L (5-37) 07/07/24 10:30 ALT 11 U/L (0-40) 07/07/24 10:30 Alkaline Phosphatase 61 U/L (39-117) 07/07/24 10:30 Ammonia 31 umol/L (13-55) 07/07/24 10:30 Lactate Dehydrogenase 173 U/L (118-273) 07/08/24 13:02 Troponin I High Sens 6.7 ng/L (<3.5-35.0) 07/07/24 14:02 C-Reactive Protein 2.12 mg/dL (< or = 0.50) H 07/09/24 06:31 B-Natriuretic Peptide 60 pg/mL (<100) 07/08/24 13:02 Total Protein 7.0 g/dL (6.5-8.0) 07/07/24 10:30 Albumin 3.3 g/dL (3.5-5.0) L 07/07/24 10:30 Lipase 11 U/L (8-78) 07/07/24 10:30 Vitamin B12 1341 pg/mL (200-900) H 07/08/24 13:02 Folate 13.2 ng/mL (> or = 4.0) 07/08/24 13:02 TSH 1.19 uIU/mL (0.32-4.0) 07/07/24 10:30 Urine Color Yellow 07/07/24 15:55 Urine Appearance Turbid 07/07/24 15:55 Urine pH 6.0 (5.0-9.0) 07/07/24 15:55 Ur Specific Robbins 1.020 (1.005-1.025) 07/07/24 15:55 Urine Protein 100 (2+) mg/dL (Neg-Trace) H 07/07/24 15:55 Urine Glucose (UA) Negative mg/dL (Negative) 07/07/24 15:55 Urine Ketones Negative mg/dL (Negative) 07/07/24 15:55 Urine Blood Moderate (2+) (Negative) H 07/07/24 15:55 Urine Nitrite Positive (Negative) H 07/07/24 15:55 Ur Leukocyte Esterase Large (3+) (Negative) H 07/07/24 15:55 Urine RBC 3-5 /HPF (0-2) H 07/07/24 15:55 Urine WBC >50 /HPF (0-5) H 07/07/24 15:55 Ur Squamous Epith Cells 3-5 /HPF (0-2) 07/07/24 15:55 Urine Bacteria 4+ (None Seen) 07/07/24 15:55 Hyaline Casts 0-2 /LPF (0-2) 07/07/24 15:55 Granular Casts Present 07/07/24 15:55 Urine Opiates Screen Not Detected (Not Detect) 07/07/24 15:55 Ur Buprenorphine Scrn Not Detected ng/mL (Not Detect) 07/07/24 15:55 Ur Oxycodone Screen Not Detected ng/mL (Not Detect) 07/07/24 15:55 Urine Methadone Screen Not Detected ng/mL (Not Detect) 07/07/24 15:55 Urine Fentanyl Screen Not Detected (Not Detect) 07/07/24 15:55 Ur Barbiturates Screen Not Detected (Not Detect) 07/07/24 15:55 Ur Phencyclidine Scrn Not Detected (Not Detect) 07/07/24 15:55 Ur Amphetamines Screen Not Detected (Not Detect) 07/07/24 15:55 U Benzodiazepines Scrn Not Detected (Not Detect) 07/07/24 15:55 Urine Cocaine Screen Not Detected (Not Detect) 07/07/24 15:55 U Marijuana (THC) Screen Not Detected (Not Detect) 07/07/24 15:55 C. difficile Tox B Gene NEGATIVE (Negative) 07/08/24 21:15 Influenza Type A (PCR) NEGATIVE (Negative) 07/07/24 10:30 Influenza Type B (PCR) NEGATIVE (Negative) 07/07/24 10:30 RSV RNA Qual (PCR) NEGATIVE (Negative) 07/07/24 10:30 SARS-CoV-2 RNA (RT-PCR) POSITIVE (Negative) A 07/07/24 10:30 Impressions Chest X-Ray 07/07/24 09:15 IMPRESSION: Bronchial wall thickening may be infectious and/or inflammatory in etiology. Electronically signed by: Katarina Rosa MD 07/07/2024 09:48 AM EDT Chest CTA 07/07/24 12:54 IMPRESSION: 1. No CT angiographic evidence of acute pulmonary embolism. 2. Interstitial prominence, similar when compared to the prior CT. No focal airspace consolidation. 3. Cholelithiasis without evidence of acute cholecystitis. Partially visualized left renal staghorn calculus, unchanged. VTE: Negative. Fleischner guidelines were followed. Electronically signed by: Rainer Huang MD 07/07/2024 02:44 PM EDT RP Discharge Plan Discharge Anticipated Discharge Date/Time: 07/10/24 14:43 Patient Disposition: Xfer SNF Discharge Diagnosis: hypoxia due to Covid-19 infection iron deficiency anemia Referrals: [facility] [place] [Outside] - 1 Week Medhat Fuentes MD [Primary Care Provider] - 1 Week Discharge Medications: New ferrous sulfate 324 mg (65 mg iron) Tablet,Delayed Release (Dr/Ec) 324 mg PO DAILY Qty: 30 0RF dexamethasone 6 mg tablet 6 mg PO DAILY Qty: 6 0RF Continued multivitamin Tablet 1 tab PO DAILY cyanocobalamin (vitamin B-12) 1,000 mcg Tablet 1,000 mcg PO DAILY fluticasone propionate 50 mcg/actuation [place],Suspension 1 spray INTRANASAL DAILY oxycodone 5 mg Tablet 10 mg PO Q6H PRN (Reason: Pain) escitalopram oxalate 10 mg Tablet 10 mg PO DAILY acetaminophen 325 mg Tablet 650 mg PO Q4H PRN (Reason: Pain) Rx Instructions: NOT TO EXCEED 3GM IN 24 HRS lidocaine 4 % Adhesive Patch,Medicated 1 patch TOPICAL DAILY Rx Instructions: right knee mirabegron 50 mg Tablet Extended Release 24 Hr 50 mg PO DAILY sennosides [senna] 8.6 mg Tablet 25.8 mg PO DAILY loperamide 2 mg Tablet 2 mg PO Q3H PRN (Reason: Loose Stool) Rx Instructions: administer after each loose stool until symptoms controlled; do not exceed 8 mg per 24 hrs guaifenesin 100 mg/5 mL Liquid 100 mg PO Q4H PRN (Reason: Cough) ascorbic acid (vitamin C) 500 mg Tablet 1,000 mg PO DAILY Fleet Enema 19-7 gram/118 mL Enema 118 ml RI DAILY PRN (Reason: Constipation) polyethylene glycol 3350 17 gram/dose Powder 17 g PO DAILY thiamine mononitrate (vit B1) 100 mg Tablet 100 mg PO DAILY Eliquis 2.5 mg Tablet 2.5 mg PO BID mineral oil Oil 30 ml PO DAILY PRN (Reason: dry scalp and meyers for dandruff) ondansetron HCl 4 mg Tablet 4 mg PO Q6H PRN (Reason: Nausea) ondansetron HCl 4 mg Tablet 4 mg PO ONCE PRN (Reason: prior to travel for appointment) ammonium lactate 12 % Cream 1 appl TOPICAL BID PRN (Reason: Dry Skin) zinc oxide 20 % Paste 1 ea TOPICAL DAILY PRN (Reason: skin integrity) buspirone 5 mg Tablet 5 mg PO BID fluoride (sodium) 1.1 % Paste 1 appl DENTAL BID methenamine hippurate 1 gram tablet 1 g PO DAILY 90 Days Qty: 90 1RF Discharge Orders: Discharge Order (Routine); Ordered 07/10/24 Ordered By: Jeffrey Platt Diet: NDD3 solids/thin liquids Activity on Discharge: As tolerated Stand Alone Forms: Patient Portal Discharge page Print Language: Hebrew Care Plan Goals: recovery from Covid Health Concerns: hypoxia due to Covid-19 infection iron deficiency anemia Plan of Treatment: isolation per CDC guidelines dexamethasone 6 mg daily for 6 days take iron for anemia Please follow up with your primary care doctor within 1 week. Return to the hospital if you experience recurrent or worsening symptoms. Assessment: See Discharge Summary.
--- NOTE | 2024-07-11 14:36 | P.CDIM_ITS ---
PROVIDER RESPONSE TEXT: To clarify, the appropriate diagnosis supported by the clinical indicators: Other (explain): acute encephalopathy due to infection QUERY TEXT: PHYSICIAN'S DOCUMENTATION REQUEST Date of Query: 07/09/2024 06:17 AM EDT Patient Name: Clarence Alcantar Admit Date: 07/07/2024 Dear Jeffrey Platt MD, A review of the medical record indicates additional documentation may be needed. Please review below and update the documentation accordingly. Clinical Indicators: Progress notes within the written Plan: Acute encephalopathy due to infection. AMS, lethargy, confused with diagnosis of Covid-19 infection. Based on the above, please further specify, in the Progress Notes, the known or suspected type of the documented encephalopathy: Metabolic Toxic Toxic metabolic Other (explain) Clinically unable to determine (explain) Thank you, Fina Dorsey, CCS, CDIS Use of terms such as suspected, likely, concern for, or probable (associated with a specific diagnosi s that is being evaluated, monitored, or treated as if it exists) are acceptable and can be coded in the inpatient se tting, when documented at the time of discharge. Please use your independent medical judgment in providing your response. THIS QUERY IS PART OF THE PERMANENT MEDICAL RECORD
--- NOTE | 2024-07-11 14:36 | P.CDIM_ITS ---
PROVIDER RESPONSE TEXT: To clarify, the appropriate diagnosis supported by the clinical indicators: Systolic: chronic HFrEF QUERY TEXT: PHYSICIAN'S DOCUMENTATION REQUEST Date of Query: 07/10/2024 05:59 AM EDT Patient Name: Clarence Alcantar Admit Date: 07/07/2024 Dear Jeffrey Platt MD, A review of the medical record indicates additional documentation may be needed. Please review below and update the documentation accordingly. Clinical Indicators: ED 07/07 - 84 year old male with pmhx significant for cardiomyopathy, CHF with EF of 25-30%. BNP 40 Please provide further specificity regarding the most likely type and acuity of CHF as noted within t he PMH: Systolic Please specify if Acute, Chronic, or Acute on chronic, or Unable to determine Diastolic Please specify if Acute, Chronic, or Acute on chronic, or Unable to determine Combined Systolic/Diastolic Please specify if Acute, Chronic, or Acute on chronic, or Unable to determine Other (explain) Clinically unable to determine (explain) Thank you, Fina Dorsey, CCS, CDIS Use of terms such as suspected, likely, concern for, or probable (associated with a specific diagnosi s that is being evaluated, monitored, or treated as if it exists) are acceptable and can be coded in the inpatient se tting, when documented at the time of discharge. Please use your independent medical judgment in providing your response. THIS QUERY IS PART OF THE PERMANENT MEDICAL RECORD
== END 2024-07-10 15:29 | disposition intermediate care facility (04) | DRG 177 ==
LOC: HO.ED 16:58 → HO.EDOVER 17:40 → HO.IMC 07-08 03:34
PROVIDERS: Physician Assistant Medical; Student in an Organized Health Care Education/Training Program; Admitting Provider Family Medicine; Emergency Provider Emergency Medicine; PCP Internal Medicine; Visit Provider Family Medicine
DX: U07.1 COVID-19 (principal); J96.01 Acute respiratory failure with hypoxia; G93.49 Other encephalopathy; I13.0 Hypertensive heart and chronic kidney disease with heart failure and stage 1 through stage 4 chronic kidney disease, or unspecified chronic kidney disease; I50.22 Chronic systolic (congestive) heart failure; E87.3 Alkalosis; I42.9 Cardiomyopathy, unspecified; I48.0 Paroxysmal atrial fibrillation; D63.1 Anemia in chronic kidney disease; D50.9 Iron deficiency anemia, unspecified; G90.9 Disorder of the autonomic nervous system, unspecified; N18.30 Chronic kidney disease, stage 3 unspecified; N40.0 Benign prostatic hyperplasia without lower urinary tract symptoms; E11.22 Type 2 diabetes mellitus with diabetic chronic kidney disease; Z98.1 Arthrodesis status; Z96.0 Presence of urogenital implants; Z87.891 Personal history of nicotine dependence; Z79.01 Long term (current) use of anticoagulants; Z79.51 Long term (current) use of inhaled steroids; Z79.899 Other long term (current) drug therapy
CPT/HCPCS: 0241U; 36415; 71046; 71275; 80048; 80053; 80307; 81001; 81003; 82140; 82607; 82746; 82803; 82947; 83540; 83615; 83690; 83735; 83880; 84443; 84484; 85025; 85027; 85045; 86140; 87086; 87088; 87186; 87493; 92610; 93005; 99285; J1100; Q9967

== ENCOUNTER → 2024-07-07 17:34 | Outpatient (BNV) | payer MEDICARE, SELFPAY | PROVIDERS: Admitting Provider Family Medicine; Emergency Provider Emergency Medicine; Visit Provider Family Medicine | DX: U07.1 COVID-19 (principal); J96.01 Acute respiratory failure with hypoxia; D50.9 Iron deficiency anemia, unspecified | CPT/HCPCS: 99223; 99232; 99239 ==

== ENCOUNTER 2024-07-16 06:13 | Outpatient (REF) | payer MEDICARE, SELFPAY ==
[2024-07-16 06:39] LABS: Hematocrit 31.5 % (42.0-52.0); Hemoglobin 9.6 g/dl (14.0-18.0); Mean Corpuscular HGB Conc 30.5 g/dl (31.0-36.0); Mean Corpuscular Hemoglobin 30.3 pg (27.0-33.0); Mean Corpuscular Volume 99.4 fL (80.0-98.0); Mean Platelet Volume 9.8 fL (9.4-12.4); Platelet Count 268 X10*3/uL (160-400); Red Blood Count 3.17 X10*6/uL (4.60-5.80); Red Cell Distribution Width 17.4 % (11.0-16.0); White Blood Count 9.3 X10*3/uL (4.8-10.8)
[2024-07-16 06:59] LABS: Anion Gap 11 (12-20); Blood Urea Nitrogen 26 mg/dL (9-16); Calcium 8.4 mg/dL (8.4-10.2); Carbon Dioxide 30 mmol/L (22-29); Chloride 104 mmol/L (96-108); Estimated Glomerular Filt Rate > 60; Glucose Fasting 110 mg/dL (60-99); Potassium 3.8 mmol/L (3.3-5.1); Sodium 141 mmol/L (135-145)
== END 2024-07-16 06:14 | disposition home or self-care (01) ==
LOC: HO.HSH3E 06:13
PROVIDERS: Visit Provider Nurse Practitioner Acute Care
DX: E11.9 Type 2 diabetes mellitus without complications (principal); N39.0 Urinary tract infection, site not specified; N18.9 Chronic kidney disease, unspecified
CPT/HCPCS: 36415; 80048; 85027

== ENCOUNTER 2024-07-29 05:52 | Outpatient (REF) | payer MEDICARE, SELFPAY ==
[2024-07-29 05:55] LABS: MANUAL DIFF FLAG NO
[2024-07-29 06:36] LABS: Alanine Aminotransferase 8 U/L (0-40); Albumin Level 2.8 g/dL (3.5-5.0); Alkaline Phosphatase 67 U/L (39-117); Anion Gap 13 (12-20); Aspartate Amino Transferase 20 U/L (5-37); Bilirubin Total 0.4 mg/dL (0.0-1.0); Blood Urea Nitrogen 25 mg/dL (9-16); Calcium 9.6 mg/dL (8.4-10.2); Carbon Dioxide 33 mmol/L (22-29); Chloride 102 mmol/L (96-108); Estimated Glomerular Filt Rate > 60; Glucose Random 106 mg/dL (60-115); Potassium 4.5 mmol/L (3.3-5.1); Sodium 143 mmol/L (135-145); Total Protein 6.2 g/dL (6.5-8.0)
[2024-07-29 06:40] LABS: Basophils Absolute Auto 0.1 X10*3/uL (0.0-0.2); Basophils Percent Auto 0.7 % (0-2); Eosinophils Absolute Auto 0.1 X10*3/uL (0.0-0.4); Hemoglobin 9.1 g/dl (14.0-18.0); Imm Gran Abs Auto 0.05 X10*3/uL (0.00-0.03); Imm Gran Pct Auto 0.7 % (0.0-0.4); Lymphocytes Absolute Auto 0.6 X10*3/uL (1.2-4.9); Lymphocytes Percent Auto 8.4 % (20-40); Mean Corpuscular HGB Conc 30.3 g/dl (31.0-36.0); Mean Corpuscular Hemoglobin 30.4 pg (27.0-33.0); Mean Corpuscular Volume 100.3 fL (80.0-98.0); Mean Platelet Volume 10.2 fL (9.4-12.4); Monocytes Absolute Auto 0.7 X10*3/uL (0.1-1.2); Monocytes Percent Auto 9.6 % (2-11); Neutrophils Absolute Auto 5.5 x10*3/uL (2.0-8.3); Neutrophils Percent Auto 79.6 % (45-73); Platelet Count 195 X10*3/uL (160-400); Red Blood Count 2.99 X10*6/uL (4.60-5.80); Red Cell Distribution Width 17.2 % (11.0-16.0); White Blood Count 6.9 X10*3/uL (4.8-10.8)
== END 2024-07-29 05:53 | disposition home or self-care (01) ==
LOC: HO.HSH3E 05:52
PROVIDERS: Visit Provider Nurse Practitioner
DX: I10 Essential (primary) hypertension (principal); R10.9 Unspecified abdominal pain
CPT/HCPCS: 36415; 80053; 85025